=== PATIENT | female | born 1985 | race Caucasian/White ===

== ENCOUNTER 2017-01-01 01:34 | Inpatient (IN) | payer MEDICAID, OTHER ==
[2017-01-01] VITALS (10 sets, daily range): BP systolic 123–165; BP diastolic 64–100
[~2017-01-01] VITALS: Ht 172.7 cm; Wt 56.7 kg
[~2017-01-01 01:34] MED LIST: AMITRIPTYLINE25 MG ORAL; ATIVAN1 MG ORAL; LORAZEPAM0.5 MG ORAL; ONDANSETRON ODT4 MG ORAL; ZOFRAN ODT8 MG ORAL
[2017-01-01] MEDS ORDERED: Haloperidol 5mg/ml Inj IM ONE (02:30)
[2017-01-01] MEDS ORDERED: Morphine Sulfate 4mg/ml Inj IVP ONE ×2 (02:45→08:00)
[2017-01-01 03:33] LABS: APPEARANCE,URINE CLEAR; KETONES,URINE 4+ (NEGATIVE); LEUKOCYTE ESTERASE ,URINE NEGATIVE (NEGATIVE); MEAN CORPUSCULAR HEMOGLOBIN 31.3 PG (27.0-31.0); MEAN CORPUSCULAR HGB CONC 35.4 G/DL (32.0-36.0); MEAN CORPUSCULAR VOLUME 88 FL (80-99); MEAN PLATELET VOLUME 7.1 FL (6.5-10.1); NITRITE,URINE NEGATIVE (NEGATIVE); PH,URINE 6 (4.5-8.0); PLATELET COUNT 206 K/UL (150-450); PROTEIN,URINE 2+ (NEGATIVE); RED BLOOD COUNT 4.59 M/UL (4.20-5.40); RED CELL DISTRIBUTION WIDTH 11.2 % (11.6-14.8); UROBILINOGEN,URINE NORMAL MG/DL (0.0-1.0); WHITE BLOOD COUNT 16.5 K/UL (4.8-10.8)
[2017-01-01 03:43] LABS: BACTERIA,URINE FEW /HPF; SQUAMOUS EPITHELIAL CELL,UR FEW /LPF (NONE/OCC); WBC,URINE 0-2 /HPF (0 - 2)
[2017-01-01 03:46] LABS: ALANINE AMINOTRANSFERASE 12 U/L (3-33); ALBUMIN/GLOBULIN RATIO 1.5 (1.0-2.7); ANION GAP 27 (5-15); ASPARTATE AMINO TRANSFERASE 20 U/L (5-40); CARBON DIOXIDE 14 mEQ/L (20-30); CHLORIDE 99 mEQ/L (98-107); CREATININE 0.8 mg/dL (0.5-0.9); GLOMERULAR FILTRATION RATE > 60 mL/min (>60); HEMOLYSIS 60; LIPASE 15 U/L (< 60); POTASSIUM 3.8 mEQ/L (3.4-4.9); SODIUM 140 mEQ/L (135-145); TOTAL PROTEIN 7.5 g/dL (6.6-8.7)
[2017-01-01] MEDS ORDERED: Famotidine 20 MG/ 2ML VIAL IVP ONE (04:00)
[2017-01-01] MEDS ORDERED: D5 1/2NS w/KCl 20mEq 1,000 ML IV SCH (04:00)
[2017-01-01 05:03] LABS: TROPONIN I < 0.30 ng/mL (<=0.30)
--- NOTE | 2017-01-01 07:58 | Emergency Room Report ---
History of Present Illness General Chief Complaint: Abdominal Pain Source: Patient, EMS Present Illness HPI Patient is a 31-year-old female presented after increased generalized abdominal pain. The patient had prior history of cyclic vomiting syndrome patient had increased pain. She reported having multiple episodes of nausea and vomiting. She denied any diarrhea. The patient had previously been hospitalized for similar type episodes. She had been feeling dizzy lightheaded. She had not been able to tolerate oral food or fluids. Her primary care physician is Dr. Flores Allergies: Coded Allergies: SULFA (SULFONAMIDE ANTIBIOTICS) (Verified Allergy, Unknown, 02/23/11) Patient History Past Medical History: see triage record Last Menstrual Period: 3 weeks ago Reviewed Nursing Documentation: PMH: Agreed, PSxH: Agreed Nursing Documentation-PMH Hx Cardiac Problems: No Hx Hypertension: No Hx Pacemaker: No Hx Asthma: Yes Hx COPD: No Hx Diabetes: No Hx Cancer: No Hx Gastrointestinal Problems: Yes - CYCLIC VOMITING Hx Dialysis: No Hx Neurological Problems: No Hx Cerebrovascular Accident: No Hx Transient Ischemic Attacks: No Hx Dementia: No Hx Alzheimer's Disease: No Hx Parkinson's Disease: No Hx Meningitis: No Hx Encephalitis: No Hx Seizures: No Hx Epilepsy: No Hx Multiple Sclerosis: No Hx Cerebral Palsy: No Hx Amyotrophic Lat Sclerosis: No Hx Guillian-[place] Syndrome: No Hx Paralysis: No Hx Peripheral Neuropathy: No Hx Spinal Cord Injury: No Hx Head Trauma: No Hx Traumatic Brain Injury: No Hx Memory Loss: No Hx Concentration Difficulty: No Hx Speech Problem: No Hx Tremors: No Hx Vertigo: No Hx Dizziness: No Hx Syncope: No Hx Headaches: No Hx Aphasia: No Hx Dysphasia: No Hx Numbness: No Hx Weakness: No Hx Fatigue: No Hx Neurologic Surgery: No Hx Brain Shunt: No Review of Systems All Other Systems: negative except mentioned in HPI Physical Exam Vital Signs Date Time Temp Pulse Resp B/P Pulse Ox O2 Delivery O2 Flow Rate FiO2 01/01/17 01:38 97.5 75 18 149/86 100 Room Air Sp02 EP Interpretation: reviewed, normal General Appearance: normal inspection, alert, GCS 15, moderate distress Head: atraumatic ENT: normal ENT inspection, hearing grossly normal, normal voice Neck: normal inspection, full range of motion, supple, no bony tend Respiratory: normal inspection, lungs clear, normal breath sounds, no respiratory distress, no retraction, no wheezing Cardiovascular #1: regular rate, rhythm, no edema Gastrointestinal: non tender, soft, no guarding, no hernia Genitourinary: no CVA tenderness Musculoskeletal: normal inspection, back normal, normal range of motion Neurologic: normal inspection, alert, oriented x3, responsive, sap bobj developer III-XII nml as tested, speech normal Psychiatric: normal inspection, judgement/insight normal, mood/affect normal Skin: no rash, pallor Medical Decision Making Diagnostic Impression: Primary Impression: Cyclic vomiting syndrome Additional Impressions: Dehydration Leukocytosis ER Course Patient presented for abdominal pain. Differential diagnoses included ischemic bowel, appendicitis, perforated viscus, abdominal aortic aneurysm, inferior myocardial infarction, viral gastroenteritis Because of complexity of patient's case laboratory testing and imaging studies were ordered. The patient started on IV fluids as well as IV antiemetics. The patient was noted to have persistent abdominal pain and vomiting. The patient is not able to tolerate oral fluids. The patient began vomiting immediately after by mouth challenge. Laboratory testing was notable for elevated white blood count as well as, some ketosis consistent with dehydration. A urinalysis showed no evidence of infection. The patient started on dextrose containing fluids. Patient was discussed with Dr. Yohannes Cotto who is covering for Dr. Deal. Laboratory Tests Test 01/01/17 03:20 White Blood Count 16.5 K/UL (4.8-10.8) H Red Blood Count 4.59 M/UL (4.20-5.40) Hemoglobin 14.4 G/DL (12.0-16.0) Hematocrit 40.6 % (37.0-47.0) Mean Corpuscular Volume 88 FL (80-99) Mean Corpuscular Hemoglobin 31.3 PG (27.0-31.0) H Mean Corpuscular Hemoglobin Concent 35.4 G/DL (32.0-36.0) Red Cell Distribution Width 11.2 % (11.6-14.8) L Platelet Count 206 K/UL (150-450) Mean Platelet Volume 7.1 FL (6.5-10.1) Neutrophils (%) (Auto) % (45.0-75.0) Lymphocytes (%) (Auto) % (20.0-45.0) Monocytes (%) (Auto) % (1.0-10.0) Eosinophils (%) (Auto) % (0.0-3.0) Basophils (%) (Auto) % (0.0-2.0) Urine Color Pale yellow Urine Appearance Clear Urine pH 6 (4.5-8.0) Urine Specific [place] 1.025 (1.005-1.035) Urine Protein 2+ (NEGATIVE) H Urine Glucose (UA) 3+ (NEGATIVE) H Urine Ketones 4+ (NEGATIVE) H Urine Occult Blood 2+ (NEGATIVE) H Urine Nitrite Negative (NEGATIVE) Urine Bilirubin Negative (NEGATIVE) Urine Urobilinogen Normal MG/DL (0.0-1.0) Urine Leukocyte Esterase Negative (NEGATIVE) Urine RBC 5-10 /HPF (0 - 2) H Urine WBC 0-2 /HPF (0 - 2) Urine Squamous Epithelial Cells Few /LPF (NONE/OCC) Urine Bacteria Few /HPF (NONE) Urine HCG, Qualitative Negative Sodium Level 140 mEQ/L (135-145) Potassium Level 3.8 mEQ/L (3.4-4.9) Chloride Level 99 mEQ/L (98-107) Carbon Dioxide Level 14 mEQ/L (20-30) L Anion Gap 27 (5-15) H Blood Urea Nitrogen 14 mg/dL (7-23) Creatinine 0.8 mg/dL (0.5-0.9) Estimate Glomerular Filtration Rate > 60 mL/min (>60) Glucose Level 196 mg/dL (74-106) H Calcium Level 10.0 mg/dL (8.6-10.2) Total Bilirubin 0.3 mg/dL (0.0-1.2) Aspartate Amino Transferase (AST) 20 U/L (5-40) Alanine Aminotransferase (ALT) 12 U/L (3-33) Alkaline Phosphatase 44 U/L (35-104) Troponin I < 0.30 ng/mL (<=0.30) Total Protein 7.5 g/dL (6.6-8.7) Albumin 4.6 g/dL (3.5-5.2) Globulin 2.9 g/dL Albumin/Globulin Ratio 1.5 (1.0-2.7) Lipase 15 U/L (< 60) Urine Opiates Screen Negative (NEGATIVE) Urine Barbiturates Screen Negative (NEGATIVE) Phencyclidine (PCP) Screen Negative (NEGATIVE) Urine Amphetamines Screen Negative (NEGATIVE) Urine Benzodiazepines Screen Negative (NEGATIVE) Urine Cocaine Screen Negative (NEGATIVE) Urine Marijuana (THC) Screen Positive (NEGATIVE) H Last Vital Signs Date Time Temp Pulse Resp B/P Pulse Ox O2 Delivery O2 Flow Rate FiO2 01/01/17 07:08 98.0 60 20 155/82 98 Room Air Status: unchanged Disposition: ADMITTED INPATIENT Condition: Serious Referrals: DEENA MCDOWELL (PCP) Sj Hill Jan 01, 2017 07:58
--- NOTE | 2017-01-01 10:13 | History & Physical ---
History and Physical History & Physicial History of Present Illness Date patient seen: 01/01/17 Time patient seen: 09:20 Reason for Hospitalization: n, Vomiting HPI 31y/o female w/ cyclical vomiting syndrome who presents w/ nausea and vomiting. She has had dozens of ED visits here and at [facility]. She is complaining of abdominal pain with intractable vomiting. No diarrhea. Pain is 10 out of 10 cramping in nature. Unable to take her Ativan and her Zofran. Similar symptom in the past. Unable to keep anything down for the last 2 days. At beside, history corroborated. Pt w/ improved symptoms. Requesting ice chips. Denies f/c, chest pain, SOB, dysuria. Allergies: Coded Allergies: SULFA (SULFONAMIDE ANTIBIOTICS) (Verified Allergy, Unknown, 02/23/11) Scheduled PRN Lorazepam* (Lorazepam*), 0.5 MG ORAL DAILY PRN for For Anxiety, (Reported) Ondansetron Odt* (Zofran Odt*), 8 MG ORAL Q6H PRN for Nausea & Vomiting, ( Reported) Discontinued Medications Amitriptyline HCl (Elavil*), 25 MG ORAL BEDTIME, (Reported) Discontinued Reason: Pt stopped taking med History Provided By: Medical Record Healthcare decision maker Resuscitation status Full Code Advanced Directive on File Family History: Patient reports no known family medical history. ROS Review of Systems Constitutional: Reports: no symptoms ENT: Reports: no symptoms Respiratory: Reports: no symptoms Cardiovascular: Reports: no symptoms Gastrointestinal: Reports: abdominal pain, nausea, vomiting Genitourinary: Reports: no symptoms Musculoskeletal: Reports: no symptoms Skin: Reports: no symptoms Psychiatric: Reports: no symptoms Neurological: Reports: no symptoms Endocrine: Reports: no symptoms Hematologic/Lymphatic: Reports: no symptoms All Other Systems: negative except mentioned in HPI Physical Exam Physical Exam Physical Exam Narrative General appearance: Alert, conversant, and in no distress Head: NC/AT Eyes: sclera clear ENT: mucous membranes moist Chest: clear to auscultation b/l, no wheezes, rales or rhonchi, symmetric air entry Heart: RRR, normal S1/S2, no murmurs, rubs, clicks or gallops Abdomen: Normoactive, soft, +mild TTP diffusely, no acute abd signs, nondistended, no masses or organomegaly Extremities: No LE edema, no cyanosis. Pedal pulses 2+. Medications Current Medications Medications (Trade) Dose Ordered Sig/Shanta Route PRN Reason Start Time Stop Time Status Last Admin Dose Admin Acetaminophen (Tylenol) 650 mg Q4H PRN ORAL Mild Pain (Pain Scale 1-3) 08/18/16 09:15 09/17/16 09:14 Bisacodyl (Dulcolax) 10 mg HSPRN PRN RECTAL Constipation 08/18/16 09:15 09/17/16 09:14 Dextrose (Dextrose 50%) STAT PRN IV Hypoglycemia 08/18/16 09:15 09/17/16 09:14 Dextrose/ Electrolytes (D5 0.45%NS W/ KCl 20mEq) 1,000 ml @ 100 mls/hr Q10H IV 08/18/16 10:00 09/17/16 09:59 08/18/16 11:05 Docusate Sodium (Colace) 100 mg EVERY 12 HOURS ORAL 08/18/16 10:00 09/17/16 09:59 08/18/16 10:44 Heparin Sodium (Porcine) (Heparin 5000 units/ml) 5,000 units EVERY 12 HOURS SUBQ 08/18/16 10:00 09/17/16 09:59 08/18/16 10:44 Lorazepam (Ativan) 0.5 mg Q8H PRN ORAL For Anxiety 08/18/16 09:45 08/25/16 09:44 Magnesium Hydroxide (Mom) 30 ml HSPRN PRN ORAL Constipation 08/18/16 09:15 09/17/16 09:14 Metoclopramide HCl (Reglan) 10 mg Q6H PRN IVP Nausea & Vomiting 08/18/16 09:15 09/17/16 09:14 Morphine Sulfate (Morphine Sulfate) 1 mg Q4H PRN IVP Mild Pain (Pain Scale 1-3) 08/18/16 09:15 08/25/16 09:14 Morphine Sulfate (Morphine Sulfate) 2 mg Q4H PRN IVP Moderate Pain (Pain Scale 4-6) 08/18/16 09:15 08/25/16 09:14 08/18/16 14:49 Morphine Sulfate (Morphine Sulfate) 4 mg Q4H PRN IVP Severe Pain (Pain Scale 7-10) 08/18/16 09:15 08/25/16 09:14 Ondansetron HCl (Zofran) 4 mg Q6H PRN IVP Nausea & Vomiting 08/18/16 09:15 09/17/16 09:14 08/18/16 13:09 Pantoprazole (Protonix) 40 mg DAILY IV 08/18/16 10:00 09/17/16 09:59 08/18/16 10:44 Polyethylene Glycol (Miralax) 17 gm HSPRN PRN ORAL Constipation 08/18/16 09:15 09/17/16 09:14 Zolpidem Tartrate (Ambien) 5 mg HSPRN PRN ORAL Insomnia 08/18/16 09:15 09/17/16 09:14 Assessment/Plan Assessment/Plan Problem List: (1) Cyclic vomiting syndrome (2) Intractable nausea and vomiting (3) Elevated lipase Status: stable Assessment/Plan #Cyclical vomiting syndrome: Pt with recurrent episodes, now improving. -IVF - ice chips, ADAT -Zofran PRN, Compazine and Phenergan and Reglan prn -Ativan PRN #Asthma. Stable, no acute concerns -Continue home Albuterol PRN #FEN/PPx: ice chips-->CLD advance as tolerate HSQ FULL CODE I spent 70min on this encounter w/ >50% on care/coordination. D/w pt, RN, ED physician regarding appropriate management and obs status and dispo Hernando Melendez M.D. Jan 01, 2017 10:12
[2017-01-01] MEDS: D5NS 1,000 ML IV SCH ×2 (12:27→21:40)
--- NOTE | 2017-01-01 13:27 | GI Initial Consult Note ---
History of Present Illness General Date patient seen: Jan 01, 2017 Time patient seen: 11:00 Reason for Hospitalization: Abdominal Pain Referring physician: RADHA ZUÑIGA Reason for Consultation: CYCLIC VOMITTING Present Illness HPI Patient is a 31-year-old female presented after increased generalized abdominal pain. The patient had prior history of cyclic vomiting syndrome patient had increased pain. She reported having multiple episodes of nausea and vomiting. She denied any diarrhea. The patient had previously been hospitalized for similar type episodes. She had been feeling dizzy lightheaded. She had not been able to tolerate oral food or fluids. Her primary care physician is Dr. Flores GI CONSULT: HPI as noted above. GI consulted for cyclic vomiting 2/2 MJ use. Pt seen on floor, awake A&Ox4 NAD with active s/sx of N/V. Denies N/V and diarrhea at this time. According to the patient, she had ingested large amounts of ETOH prior to her episodes of vomiting. She denied any use of MJ at the time or prior to her episodes. She presents today leukocytosis and positive utox for MJ. LFTs and lipase are unremarkable. Home Meds Reported Medications Ondansetron Odt* (ZOFRAN ODT*) 8 Mg Tab.rapdis, 8 MG ORAL Q6H Y for Nausea & Vomiting, #30 TAB 08/18/16 Lorazepam* (LORAZEPAM*) 0.5 Mg Tablet, 0.5 MG ORAL DAILY Y for For Anxiety, TAB 01/30/16 Allergies: Coded Allergies: SULFA (SULFONAMIDE ANTIBIOTICS) (Verified Allergy, Unknown, 02/23/11) Patient History History Provided By: Patient, Medical Record PMH Narrative Hx Cardiac Problems: No Hx Hypertension: No Hx Pacemaker: No Hx Asthma: Yes Hx COPD: No Hx Diabetes: No Hx Cancer: No Hx Gastrointestinal Problems: Yes - CYCLIC VOMITING Hx Dialysis: No Hx Neurological Problems: No Hx Cerebrovascular Accident: No Hx Transient Ischemic Attacks: No Hx Dementia: No Hx Alzheimer's Disease: No Hx Parkinson's Disease: No Hx Meningitis: No Hx Encephalitis: No Hx Seizures: No Hx Epilepsy: No Hx Multiple Sclerosis: No Hx Cerebral Palsy: No Hx Amyotrophic Lat Sclerosis: No Hx Guillian-[place] Syndrome: No Hx Paralysis: No Hx Peripheral Neuropathy: No Hx Spinal Cord Injury: No Hx Head Trauma: No Hx Traumatic Brain Injury: No Hx Memory Loss: No Hx Concentration Difficulty: No Hx Speech Problem: No Hx Tremors: No Hx Vertigo: No Hx Dizziness: No Hx Syncope: No Hx Headaches: No Hx Aphasia: No Hx Dysphasia: No Hx Numbness: No Hx Weakness: No Hx Fatigue: No Hx Neurologic Surgery: No Hx Brain Shunt: No Social History: Reports: alcohol use, drug use Review of Systems All Other Systems: negative except mentioned in HPI Physical Exam Vital Signs Date Time Temp Pulse Resp B/P Pulse Ox O2 Delivery O2 Flow Rate FiO2 01/01/17 01:38 97.5 75 18 149/86 100 Room Air Sp02 EP Interpretation: reviewed Labs Laboratory Tests Test 01/01/17 03:20 White Blood Count 16.5 K/UL (4.8-10.8) H Red Blood Count 4.59 M/UL (4.20-5.40) Hemoglobin 14.4 G/DL (12.0-16.0) Hematocrit 40.6 % (37.0-47.0) Mean Corpuscular Volume 88 FL (80-99) Mean Corpuscular Hemoglobin 31.3 PG (27.0-31.0) H Mean Corpuscular Hemoglobin Concent 35.4 G/DL (32.0-36.0) Red Cell Distribution Width 11.2 % (11.6-14.8) L Platelet Count 206 K/UL (150-450) Mean Platelet Volume 7.1 FL (6.5-10.1) Neutrophils (%) (Auto) % (45.0-75.0) Lymphocytes (%) (Auto) % (20.0-45.0) Monocytes (%) (Auto) % (1.0-10.0) Eosinophils (%) (Auto) % (0.0-3.0) Basophils (%) (Auto) % (0.0-2.0) Urine Color Pale yellow Urine Appearance Clear Urine pH 6 (4.5-8.0) Urine Specific [place] 1.025 (1.005-1.035) Urine Protein 2+ (NEGATIVE) H Urine Glucose (UA) 3+ (NEGATIVE) H Urine Ketones 4+ (NEGATIVE) H Urine Occult Blood 2+ (NEGATIVE) H Urine Nitrite Negative (NEGATIVE) Urine Bilirubin Negative (NEGATIVE) Urine Urobilinogen Normal MG/DL (0.0-1.0) Urine Leukocyte Esterase Negative (NEGATIVE) Urine RBC 5-10 /HPF (0 - 2) H Urine WBC 0-2 /HPF (0 - 2) Urine Squamous Epithelial Cells Few /LPF (NONE/OCC) Urine Bacteria Few /HPF (NONE) Urine HCG, Qualitative Negative Sodium Level 140 mEQ/L (135-145) Potassium Level 3.8 mEQ/L (3.4-4.9) Chloride Level 99 mEQ/L (98-107) Carbon Dioxide Level 14 mEQ/L (20-30) L Anion Gap 27 (5-15) H Blood Urea Nitrogen 14 mg/dL (7-23) Creatinine 0.8 mg/dL (0.5-0.9) Estimat Glomerular Filtration Rate > 60 mL/min (>60) Glucose Level 196 mg/dL (74-106) H Calcium Level 10.0 mg/dL (8.6-10.2) Total Bilirubin 0.3 mg/dL (0.0-1.2) Aspartate Amino Transf (AST/SGOT) 20 U/L (5-40) Alanine Aminotransferase (ALT/SGPT) 12 U/L (3-33) Alkaline Phosphatase 44 U/L (35-104) Troponin I < 0.30 ng/mL (<=0.30) Total Protein 7.5 g/dL (6.6-8.7) Albumin 4.6 g/dL (3.5-5.2) Globulin 2.9 g/dL Albumin/Globulin Ratio 1.5 (1.0-2.7) Lipase 15 U/L (< 60) Urine Opiates Screen Negative (NEGATIVE) Urine Barbiturates Screen Negative (NEGATIVE) Phencyclidine (PCP) Screen Negative (NEGATIVE) Urine Amphetamines Screen Negative (NEGATIVE) Urine Benzodiazepines Screen Negative (NEGATIVE) Urine Cocaine Screen Negative (NEGATIVE) Urine Marijuana (THC) Screen Positive (NEGATIVE) H General Appearance: well appearing, no apparent distress, alert Head: normocephalic EENT: normal ENT inspection Neck: normal inspection, full range of motion Respiratory: normal breath sounds, no respiratory distress Cardiovascular: normal rate Gastrointestinal: normal inspection, non tender, soft, normal bowel sounds Rectal: deferred Genitourinary: normal inspection Musculoskeletal: normal inspection Neurologic: normal inspection, alert, oriented x3, responsive Psychiatric: normal inspection, judgement/insight normal, memory normal Skin: normal inspection, normal color, no rash, warm/dry Lymphatic: normal inspection Current Medications Current Medications Medications (Trade) Dose Ordered Sig/Shanta Route PRN Reason Start Time Stop Time Status Last Admin Dose Admin Dextrose/Sodium Chloride (D5ns) 1,000 ml @ 125 mls/hr Q8H IV 01/01/17 12:30 01/31/17 12:29 01/01/17 12:27 Heparin Sodium (Porcine) (Heparin 5000 units/ml) 5,000 units EVERY 12 HOURS SUBQ 01/01/17 21:00 01/31/17 20:59 Metoclopramide HCl (Reglan) 10 mg Q6H PRN IVP Nausea & Vomiting 01/01/17 11:15 01/31/17 11:14 Ondansetron HCl (Zofran) 4 mg Q6H PRN IVP Nausea & Vomiting 01/01/17 11:15 01/31/17 11:14 01/01/17 12:28 Promethazine HCl (Phenergan) 25 mg Q6H PRN IM Nausea & Vomiting 01/01/17 11:15 01/31/17 11:14 GI: Plan Problems: (1) Cannabis abuse (2) Cyclic vomiting syndrome (3) Intractable nausea and vomiting (4) Leukocytosis Plan utox >> MJ positive lipase >> negative symptomatic treatment at this time CLD, adv as tolerated reglan prn zofran prn H2 fu labs Discussed with Dr. Wood. Thank you for referring this patient, we will follow. Alice Moore N.P. Jan 01, 2017 13:27
[2017-01-01] MEDS: Metoclopramide 10mg/2ml Inj IVP PRN ×2 (15:12→21:39)
[2017-01-01] MEDS: Morphine Sulfate 2mg/ml Inj IVP PRN (18:48)
[2017-01-01] MEDS: Heparin 5000 units/ml inj SUBQ SCH (21:39)
[2017-01-01] MEDS: Famotidine 20 MG/ 2ML VIAL IVP SCH (21:40)
[2017-01-02] MEDS: Morphine Sulfate 2mg/ml Inj IVP PRN ×3 (01:01→18:41)
[2017-01-02 04:00] VITALS: BP 128/76
[2017-01-02] MEDS: D5NS 1,000 ML IV SCH ×2 (04:30→12:00)
[2017-01-02] MEDS: Metoclopramide 10mg/2ml Inj IVP PRN (06:47)
[2017-01-02 07:00] LABS: BASOPHILS % (AUTO) 0.4 % (0.0-2.0); EOSINOPHILS % (AUTO) 0.1 % (0.0-3.0); MEAN CORPUSCULAR HEMOGLOBIN 31.5 PG (27.0-31.0); MEAN CORPUSCULAR HGB CONC 35.2 G/DL (32.0-36.0); MEAN CORPUSCULAR VOLUME 89 FL (80-99); MEAN PLATELET VOLUME 7.3 FL (6.5-10.1); MONOCYTES % (AUTO) 5.7 % (1.0-10.0); NEUTROPHILS % (AUTO) 68.8 % (45.0-75.0); PLATELET COUNT 186 K/UL (150-450); RED BLOOD COUNT 4.22 M/UL (4.20-5.40); RED CELL DISTRIBUTION WIDTH 11.4 % (11.6-14.8); WHITE BLOOD COUNT 15.6 K/UL (4.8-10.8)
[2017-01-02 07:14] LABS: ANION GAP 14 (5-15); CALCIUM 9.1 mg/dL (8.6-10.2); CARBON DIOXIDE 22 mEQ/L (20-30); CHLORIDE 105 mEQ/L (98-107); CREATININE 0.7 mg/dL (0.5-0.9); GLOMERULAR FILTRATION RATE > 60 mL/min (>60); HEMOLYSIS 4; POTASSIUM 3.3 mEQ/L (3.4-4.9); SODIUM 141 mEQ/L (135-145)
[2017-01-02 08:50] VITALS: BP 159/89
[2017-01-02] MEDS: Famotidine 20 MG/ 2ML VIAL IVP SCH ×2 (09:01→21:21)
[2017-01-02] MEDS: Heparin 5000 units/ml inj SUBQ SCH ×2 (09:06→21:30)
--- NOTE | 2017-01-02 11:59 | GI Progress Note ---
Assessment/Plan Problems: (1) Intractable nausea and vomiting ICD Codes: R11.2 - Nausea with vomiting, unspecified SNOMED: 527375098, 480920198 (2) Cyclic vomiting syndrome ICD Codes: G43.A0 - Cyclical vomiting, not intractable SNOMED: 72913643 (3) Cannabis abuse ICD Codes: F12.10 - Cannabis abuse, uncomplicated SNOMED: 76792428 Status: not improved Status Narrative Discussed with Dr. Wood. Assessment/Plan utox >> MJ positive lipase >> negative symptomatic treatment at this time CLD, adv as tolerated reglan ATC increased zofran 8mg prn scopolamine patch reduce pain meds H2 fu labs Subjective Gastrointestinal/Abdominal: Reports: nausea - has not subsided Objective Last 24 Hour Vital Signs Date Time Temp Pulse Resp B/P Pulse Ox O2 Delivery O2 Flow Rate FiO2 01/02/17 08:50 97.0 70 19 159/89 99 Room Air 70 01/02/17 07:42 98.0 01/02/17 04:00 98.0 69 18 128/76 98 Room Air 01/01/17 23:46 98.1 67 18 130/69 97 Room Air 01/01/17 20:00 98.2 69 18 134/75 97 Room Air 01/01/17 16:13 98.4 63 20 165/100 98 Room Air 01/01/17 11:58 97.7 64 20 153/87 98 Room Air Intake and Output 01/01/17 01/02/17 19:00 07:00 Intake Total 702.5 ml 1625 ml Balance 702.5 ml 1625 ml Intake Oral 375 ml IV Total 702.5 ml 1250 ml # Voids 2 3 # Bowel Movements 1 Laboratory Tests Test 01/02/17 05:10 White Blood Count 15.6 K/UL (4.8-10.8) H Red Blood Count 4.22 M/UL (4.20-5.40) Hemoglobin 13.3 G/DL (12.0-16.0) Hematocrit 37.7 % (37.0-47.0) Mean Corpuscular Volume 89 FL (80-99) Mean Corpuscular Hemoglobin 31.5 PG (27.0-31.0) H Mean Corpuscular Hemoglobin Concent 35.2 G/DL (32.0-36.0) Red Cell Distribution Width 11.4 % (11.6-14.8) L Platelet Count 186 K/UL (150-450) Mean Platelet Volume 7.3 FL (6.5-10.1) Neutrophils (%) (Auto) 68.8 % (45.0-75.0) Lymphocytes (%) (Auto) 25.0 % (20.0-45.0) Monocytes (%) (Auto) 5.7 % (1.0-10.0) Eosinophils (%) (Auto) 0.1 % (0.0-3.0) Basophils (%) (Auto) 0.4 % (0.0-2.0) Sodium Level 141 mEQ/L (135-145) Potassium Level 3.3 mEQ/L (3.4-4.9) L Chloride Level 105 mEQ/L (98-107) Carbon Dioxide Level 22 mEQ/L (20-30) Anion Gap 14 (5-15) Blood Urea Nitrogen 6 mg/dL (7-23) L Creatinine 0.7 mg/dL (0.5-0.9) Estimat Glomerular Filtration Rate > 60 mL/min (>60) Glucose Level 125 mg/dL (74-106) H Calcium Level 9.1 mg/dL (8.6-10.2) Height (Feet): 5 Height (Inches): 8.00 Weight (Pounds): 125 General Appearance: no apparent distress, alert Cardiovascular: normal rate, regular rhythm Respiratory/Chest: normal breath sounds Abdominal Exam: normal bowel sounds, non tender, soft Extremities: normal range of motion Alice Moore N.P. Jan 02, 2017 11:59
[2017-01-02 12:55] VITALS: BP 157/87
[2017-01-02] MEDS ORDERED: Transderm Scop 1.5mg TDERMAL ONE (13:00)
--- NOTE | 2017-01-02 15:51 | General Progress Note ---
Assessment/Plan Problem List: (1) Intractable cyclical vomiting ICD Codes: G43.A1 - Intractable cyclical vomiting SNOMED: 99034850 Status: progressing Assessment/Plan #Cyclical vomiting syndrome: Pt with recurrent episodes, now worsening. -IVF - ice chips, ADAT -Zofran PRN, Compazine and Phenergan and Reglan prn -Scopolomine patch -Ativan PRN -appreciate gi recs #Asthma. Stable, no acute concerns -Continue home Albuterol PRN #FEN/PPx: ice chips-->CLD advance as tolerate HSQ Subjective Date patient seen: Jan 02, 2017 Time patient seen: 15:51 Allergies: Coded Allergies: SULFA (SULFONAMIDE ANTIBIOTICS) (Verified Allergy, Unknown, 02/23/11) Subjective pt with worsening n/v this am Objective Last 24 Hour Vital Signs Date Time Temp Pulse Resp B/P Pulse Ox O2 Delivery O2 Flow Rate FiO2 01/02/17 12:55 98.8 59 19 157/87 99 Room Air 59 01/02/17 08:50 97.0 70 19 159/89 99 Room Air 70 01/02/17 07:42 98.0 01/02/17 04:00 98.0 69 18 128/76 98 Room Air 01/01/17 23:46 98.1 67 18 130/69 97 Room Air 01/01/17 20:00 98.2 69 18 134/75 97 Room Air 01/01/17 16:13 98.4 63 20 165/100 98 Room Air Intake and Output 01/01/17 01/02/17 19:00 07:00 Intake Total 702.5 ml 1750 ml Balance 702.5 ml 1750 ml Intake Oral 375 ml IV Total 702.5 ml 1375 ml # Voids 2 3 # Bowel Movements 1 Laboratory Tests 01/02/17 05:10: White Blood Count 15.6H, Red Blood Count 4.22, Hemoglobin 13.3, Hematocrit 37.7 , Mean Corpuscular Volume 89, Mean Corpuscular Hemoglobin 31.5H, Mean Corpuscular Hemoglobin Concent 35.2, Red Cell Distribution Width 11.4L, Platelet Count 186, Mean Platelet Volume 7.3, Neutrophils (%) (Auto) 68.8, Lymphocytes (%) (Auto) 25.0, Monocytes (%) (Auto) 5.7, Eosinophils (%) (Auto) 0.1, Basophils (%) (Auto) 0.4, Sodium Level 141, Potassium Level 3.3L, Chloride Level 105, Carbon Dioxide Level 22, Anion Gap 14, Blood Urea Nitrogen 6L, Creatinine 0.7, Estimat Glomerular Filtration Rate > 60, Glucose Level 125H, Calcium Level 9.1 Height (Feet): 5 Height (Inches): 8.00 Weight (Pounds): 125 Objective General appearance: Alert, conversant, and in no distress Head: NC/AT Eyes: sclera clear ENT: mucous membranes moist Chest: clear to auscultation b/l, no wheezes, rales or rhonchi, symmetric air entry Heart: RRR, normal S1/S2, no murmurs, rubs, clicks or gallops Abdomen: Normoactive, soft, +mild TTP diffusely, no acute abd signs, nondistended, no masses or organomegaly Extremities: No LE edema, no cyanosis. Pedal pulses 2+. Hernando Melendez M.D. Jan 02, 2017 15:51
[2017-01-02 16:00] VITALS: BP 135/76
[2017-01-02] MEDS: ONDANSETRON IVPB PRN ×2 (17:29→23:58)
[2017-01-02] MEDS: NS IVPB PRN ×2 (17:29→23:58)
[2017-01-02 20:00] VITALS: BP 124/73
[2017-01-03] VITALS: BP 156/89
[2017-01-03] MEDS: Morphine Sulfate 2mg/ml Inj IVP PRN ×3 (00:36→22:45)
[2017-01-03 04:00] VITALS: BP 127/84
[2017-01-03 06:31] LABS: BASOPHILS % (AUTO) 0.5 % (0.0-2.0); EOSINOPHILS % (AUTO) 0.1 % (0.0-3.0); LYMPHOCYTES % (AUTO) 34.6 % (20.0-45.0); MEAN CORPUSCULAR HEMOGLOBIN 30.3 PG (27.0-31.0); MEAN CORPUSCULAR HGB CONC 33.9 G/DL (32.0-36.0); MEAN CORPUSCULAR VOLUME 89 FL (80-99); MEAN PLATELET VOLUME 7.4 FL (6.5-10.1); MONOCYTES % (AUTO) 6.1 % (1.0-10.0); NEUTROPHILS % (AUTO) 58.8 % (45.0-75.0); PLATELET COUNT 171 K/UL (150-450); RED BLOOD COUNT 4.31 M/UL (4.20-5.40); RED CELL DISTRIBUTION WIDTH 11.2 % (11.6-14.8); WHITE BLOOD COUNT 9.8 K/UL (4.8-10.8)
[2017-01-03 06:56] LABS: ANION GAP 14 (5-15); CALCIUM 8.8 mg/dL (8.6-10.2); CARBON DIOXIDE 23 mEQ/L (20-30); CHLORIDE 105 mEQ/L (98-107); CREATININE 0.6 mg/dL (0.5-0.9); GLOMERULAR FILTRATION RATE > 60 mL/min (>60); HEMOLYSIS 4; POTASSIUM 3.6 mEQ/L (3.4-4.9); SODIUM 142 mEQ/L (135-145)
[2017-01-03] MEDS: ONDANSETRON IVPB PRN ×2 (08:02→16:11)
[2017-01-03] MEDS: NS IVPB PRN ×2 (08:02→16:11)
[2017-01-03] MEDS: Famotidine 20 MG/ 2ML VIAL IVP SCH ×2 (08:02→21:55)
[2017-01-03] MEDS: Heparin 5000 units/ml inj SUBQ SCH ×2 (08:06→21:57)
[2017-01-03 08:51] VITALS: BP 166/98
[2017-01-03] MEDS ORDERED: LORazepam Inj 2mg/ml 1ml IV ONE (11:00)
[2017-01-03] MEDS ORDERED: Meclizine 25mg tab ORAL PRN (11:00)
--- NOTE | 2017-01-03 11:39 | GI Progress Note ---
Assessment/Plan Problems: (1) Intractable nausea and vomiting ICD Codes: R11.2 - Nausea with vomiting, unspecified SNOMED: 801202784, 964296391 (2) Cyclic vomiting syndrome ICD Codes: G43.A0 - Cyclical vomiting, not intractable SNOMED: 23979097 (3) Cannabis abuse ICD Codes: F12.10 - Cannabis abuse, uncomplicated SNOMED: 44398134 Status: stable Status Narrative Discussed with Dr. Wood. Assessment/Plan utox >> MJ positive lipase >> negative symptomatic treatment at this time adv to regular diet trial for lunch zofran 8mg prn scopolamine patch reduce pain meds H2 fu labs Subjective Gastrointestinal/Abdominal: Reports: nausea - slight improvement Objective Last 24 Hour Vital Signs Date Time Temp Pulse Resp B/P Pulse Ox O2 Delivery O2 Flow Rate FiO2 01/03/17 08:51 99.0 69 20 166/98 99 Room Air 69 01/03/17 08:32 99.0 01/03/17 04:00 98.1 66 20 127/84 99 Room Air 01/03/17 00:00 97.3 64 20 156/89 98 Room Air 01/02/17 20:00 98.6 67 21 124/73 99 Room Air 01/02/17 16:00 98.4 61 20 135/76 97 Room Air 01/02/17 12:55 98.8 59 19 157/87 99 Room Air 59 Intake and Output 01/02/17 01/03/17 19:00 07:00 Intake Total 1175 ml 2650 ml Output Total 100 ml 450 ml Balance 1075 ml 2200 ml Intake Oral 120 ml 1000 ml IV Total 1055 ml 1650 ml Output Urine Total 250 ml Emesis 100 ml 200 ml # Voids 3 Laboratory Tests Test 01/03/17 05:10 White Blood Count 9.8 K/UL (4.8-10.8) Red Blood Count 4.31 M/UL (4.20-5.40) Hemoglobin 13.1 G/DL (12.0-16.0) Hematocrit 38.6 % (37.0-47.0) Mean Corpuscular Volume 89 FL (80-99) Mean Corpuscular Hemoglobin 30.3 PG (27.0-31.0) Mean Corpuscular Hemoglobin Concent 33.9 G/DL (32.0-36.0) Red Cell Distribution Width 11.2 % (11.6-14.8) L Platelet Count 171 K/UL (150-450) Mean Platelet Volume 7.4 FL (6.5-10.1) Neutrophils (%) (Auto) 58.8 % (45.0-75.0) Lymphocytes (%) (Auto) 34.6 % (20.0-45.0) Monocytes (%) (Auto) 6.1 % (1.0-10.0) Eosinophils (%) (Auto) 0.1 % (0.0-3.0) Basophils (%) (Auto) 0.5 % (0.0-2.0) Sodium Level 142 mEQ/L (135-145) Potassium Level 3.6 mEQ/L (3.4-4.9) Chloride Level 105 mEQ/L (98-107) Carbon Dioxide Level 23 mEQ/L (20-30) Anion Gap 14 (5-15) Blood Urea Nitrogen 6 mg/dL (7-23) L Creatinine 0.6 mg/dL (0.5-0.9) Estimat Glomerular Filtration Rate > 60 mL/min (>60) Glucose Level 111 mg/dL (74-106) H Calcium Level 8.8 mg/dL (8.6-10.2) Magnesium Level 1.9 mg/dL (1.7-2.5) Height (Feet): 5 Height (Inches): 8.00 Weight (Pounds): 125 General Appearance: no apparent distress, alert, thin Cardiovascular: normal rate Respiratory/Chest: normal breath sounds, no respiratory distress Abdominal Exam: normal bowel sounds, non tender, soft Extremities: normal range of motion Alice Moore N.P. Jan 03, 2017 11:39
[2017-01-03 12:45] VITALS: BP 132/82
--- NOTE | 2017-01-03 14:46 | General Progress Note ---
Assessment/Plan Problem List: (1) Intractable cyclical vomiting ICD Codes: G43.A1 - Intractable cyclical vomiting SNOMED: [id number] Assessment/Plan #Cyclical vomiting syndrome: Pt with recurrent episodes, persistent -IVF - ice chips, ADAT -Zofran PRN, Compazine and Phenergan and Reglan prn -Scopolomine patch -Ativan PRN -appreciate gi recs #Asthma. Stable, no acute concerns -Continue home Albuterol PRN #FEN/PPx: ice chips-->CLD advance as tolerate HSQ Subjective Date patient seen: Jan 03, 2017 Time patient seen: 14:44 Allergies: Coded Allergies: SULFA (SULFONAMIDE ANTIBIOTICS) (Verified Allergy, Unknown, 02/23/11) Subjective pt with improved but persistent n/v this am Objective Last 24 Hour Vital Signs Date Time Temp Pulse Resp B/P Pulse Ox O2 Delivery O2 Flow Rate FiO2 01/03/17 12:45 98.1 68 20 132/82 97 Room Air 68 01/03/17 08:51 99.0 69 20 166/98 99 Room Air 69 01/03/17 08:32 99.0 01/03/17 04:00 98.1 66 20 127/84 99 Room Air 01/03/17 00:00 97.3 64 20 156/89 98 Room Air 01/02/17 20:00 98.6 67 21 124/73 99 Room Air 01/02/17 16:00 98.4 61 20 135/76 97 Room Air Intake and Output 01/02/17 01/03/17 19:00 07:00 Intake Total 1175 ml 2650 ml Output Total 100 ml 450 ml Balance 1075 ml 2200 ml Intake Oral 120 ml 1000 ml IV Total 1055 ml 1650 ml Output Urine Total 250 ml Emesis 100 ml 200 ml # Voids 3 Laboratory Tests 01/03/17 05:10: White Blood Count 9.8, Red Blood Count 4.31, Hemoglobin 13.1, Hematocrit 38.6, Mean Corpuscular Volume 89, Mean Corpuscular Hemoglobin 30.3, Mean Corpuscular Hemoglobin Concent 33.9, Red Cell Distribution Width 11.2L, Platelet Count 171, Mean Platelet Volume 7.4, Neutrophils (%) (Auto) 58.8, Lymphocytes (%) (Auto) 34.6, Monocytes (%) (Auto) 6.1, Eosinophils (%) (Auto) 0.1, Basophils (%) (Auto ) 0.5, Sodium Level 142, Potassium Level 3.6, Chloride Level 105, Carbon Dioxide Level 23, Anion Gap 14, Blood Urea Nitrogen 6L, Creatinine 0.6, Estimat Glomerular Filtration Rate > 60, Glucose Level 111H, Calcium Level 8.8, Magnesium Level 1.9 Height (Feet): 5 Height (Inches): 8.00 Weight (Pounds): 125 Objective General appearance: Alert, conversant, and in no distress Head: NC/AT Eyes: sclera clear ENT: mucous membranes moist Chest: clear to auscultation b/l, no wheezes, rales or rhonchi, symmetric air entry Heart: RRR, normal S1/S2, no murmurs, rubs, clicks or gallops Abdomen: Normoactive, soft, +mild TTP diffusely, no acute abd signs, nondistended, no masses or organomegaly Extremities: No LE edema, no cyanosis. Pedal pulses 2+. Hernando Melendez M.D. Jan 03, 2017 14:46
[2017-01-03] MEDS: LORazepam Inj 2mg/ml 1ml IV PRN ×2 (15:57→22:45)
[2017-01-03 16:00] VITALS: BP 140/86
[2017-01-03 20:00] VITALS: BP 144/101
[2017-01-03] MEDS ORDERED: D5NS 1000ml IV ONE (20:17)
[2017-01-03] MEDS ORDERED: Tubing IV Secondary IV ONE (20:17)
[2017-01-04] VITALS: BP 157/82
[2017-01-04 04:00] VITALS: BP 141/79
[2017-01-04] MEDS: LORazepam Inj 2mg/ml 1ml IV PRN ×2 (04:40→09:06)
[2017-01-04] MEDS: Morphine Sulfate 2mg/ml Inj IVP PRN ×2 (04:42→12:12)
[2017-01-04 07:18] LABS: BASOPHILS % (AUTO) 0.9 % (0.0-2.0); EOSINOPHILS % (AUTO) 0.4 % (0.0-3.0); LYMPHOCYTES % (AUTO) 35.9 % (20.0-45.0); MEAN CORPUSCULAR HEMOGLOBIN 30.9 PG (27.0-31.0); MEAN CORPUSCULAR HGB CONC 34.7 G/DL (32.0-36.0); MEAN CORPUSCULAR VOLUME 89 FL (80-99); MEAN PLATELET VOLUME 6.8 FL (6.5-10.1); NEUTROPHILS % (AUTO) 56.7 % (45.0-75.0); PLATELET COUNT 200 K/UL (150-450); RED BLOOD COUNT 4.73 M/UL (4.20-5.40); RED CELL DISTRIBUTION WIDTH 11.4 % (11.6-14.8); WHITE BLOOD COUNT 9.7 K/UL (4.8-10.8)
[2017-01-04 08:06] VITALS: BP 151/103
[2017-01-04 08:13] LABS: ANION GAP 16 (5-15); CALCIUM 9.4 mg/dL (8.6-10.2); CARBON DIOXIDE 23 mEQ/L (20-30); CHLORIDE 102 mEQ/L (98-107); CREATININE 0.7 mg/dL (0.5-0.9); GLOMERULAR FILTRATION RATE > 60 mL/min (>60); HEMOLYSIS 9; POTASSIUM 3.4 mEQ/L (3.4-4.9); SODIUM 141 mEQ/L (135-145)
[2017-01-04] MEDS: NS IVPB PRN (09:06)
[2017-01-04] MEDS: Famotidine 20 MG/ 2ML VIAL IVP SCH (09:06)
[2017-01-04] MEDS: ONDANSETRON IVPB PRN (09:06)
[2017-01-04] MEDS: Heparin 5000 units/ml inj SUBQ SCH (09:10)
--- NOTE | 2017-01-04 11:09 | GI Progress Note ---
Assessment/Plan Problems: (1) Intractable nausea and vomiting ICD Codes: R11.2 - Nausea with vomiting, unspecified SNOMED: 927981467, 958451195 (2) Cyclic vomiting syndrome ICD Codes: G43.A0 - Cyclical vomiting, not intractable SNOMED: 82440846 (3) Cannabis abuse ICD Codes: F12.10 - Cannabis abuse, uncomplicated SNOMED: 89518757 Status: stable Status Narrative Discussed with Dr. Wood. Assessment/Plan utox >> MJ positive lipase >> negative okay for DC per GI standpoint symptomatic treatment at this time regular diet, tolerating zofran 8mg prn scopolamine patch reduce pain meds H2 fu labs Subjective Subjective nausea improved tolerating regular diet Objective Last 24 Hour Vital Signs Date Time Temp Pulse Resp B/P Pulse Ox O2 Delivery O2 Flow Rate FiO2 01/04/17 08:06 97.8 79 20 151/103 97 Room Air 01/04/17 04:00 97.6 64 18 141/79 96 Room Air 01/04/17 00:00 97.8 67 18 157/82 97 Room Air 01/03/17 20:00 97.9 65 19 144/101 98 Room Air 01/03/17 16:00 96.8 62 20 140/86 98 Room Air 01/03/17 12:45 98.1 68 20 132/82 97 Room Air 68 Intake and Output 01/03/17 01/04/17 19:00 07:00 Intake Total 1715 ml 2275 ml Output Total 200 ml Balance 1515 ml 2275 ml Intake Oral 240 ml 550 ml IV Total 1475 ml 1725 ml Emesis 200 ml # Voids 2 4 Laboratory Tests Test 01/04/17 06:00 White Blood Count 9.7 K/UL (4.8-10.8) Red Blood Count 4.73 M/UL (4.20-5.40) Hemoglobin 14.6 G/DL (12.0-16.0) Hematocrit 42.1 % (37.0-47.0) Mean Corpuscular Volume 89 FL (80-99) Mean Corpuscular Hemoglobin 30.9 PG (27.0-31.0) Mean Corpuscular Hemoglobin Concent 34.7 G/DL (32.0-36.0) Red Cell Distribution Width 11.4 % (11.6-14.8) L Platelet Count 200 K/UL (150-450) Mean Platelet Volume 6.8 FL (6.5-10.1) Neutrophils (%) (Auto) 56.7 % (45.0-75.0) Lymphocytes (%) (Auto) 35.9 % (20.0-45.0) Monocytes (%) (Auto) 6.0 % (1.0-10.0) Eosinophils (%) (Auto) 0.4 % (0.0-3.0) Basophils (%) (Auto) 0.9 % (0.0-2.0) Sodium Level 141 mEQ/L (135-145) Potassium Level 3.4 mEQ/L (3.4-4.9) Chloride Level 102 mEQ/L (98-107) Carbon Dioxide Level 23 mEQ/L (20-30) Anion Gap 16 (5-15) H Blood Urea Nitrogen 5 mg/dL (7-23) L Creatinine 0.7 mg/dL (0.5-0.9) Estimat Glomerular Filtration Rate > 60 mL/min (>60) Glucose Level 126 mg/dL (74-106) H Calcium Level 9.4 mg/dL (8.6-10.2) Height (Feet): 5 Height (Inches): 8.00 Weight (Pounds): 125 General Appearance: no apparent distress, alert, thin Cardiovascular: normal rate Respiratory/Chest: normal breath sounds, no accessory muscle use Abdominal Exam: normal bowel sounds, non tender, soft Extremities: normal range of motion Alice Moore N.P. Jan 04, 2017 11:09
[2017-01-04 11:29] VITALS: BP 159/100
[2017-01-04] MEDS ORDERED: LORazepam Inj 2mg/ml 1ml IV PRN (12:00)
[2017-01-04] MEDS ORDERED: ZOFRAN8 MG ORAL (12:22)
[2017-01-04] MEDS ORDERED: ATIVAN1 MG ORAL (12:24)
--- NOTE | 2017-01-05 10:11 | Discharge Summary ---
Discharge Summary Hospital Course Date of Admission Jan 01, 2017 at 04:45 Date of Discharge Jan 04, 2017 at 14:55 Admitting Diagnosis intractable vomiting cyclic syndrome ARELY Morgan is a 31 year old female who was admitted on Jan 01, 2017 at 04: 45 for Intractable Vomiting Cyclic Syndrome Consultations GI Hospital Course #Cyclical vomiting syndrome: Pt with recurrent episodes, persistent -IVF - ice chips, ADAT -Zofran PRN, Compazine and Phenergan and Reglan prn -Ativan PRN Discharge Medications Continued Medications: Lorazepam* (Ativan*) 1 Mg Tablet 1 MG ORAL Q4HR PRN for Nausea & Vomiting, TAB Ondansetron Hcl* (Zofran*) 8 Mg Tablet 8 MG ORAL Q4HR PRN for Nausea & Vomiting, #4 TAB 0 Refills Discontinued Medications: Lorazepam* (Lorazepam*) 0.5 Mg Tablet 0.5 MG ORAL DAILY PRN for For Anxiety, TAB Ondansetron Odt* (Zofran Odt*) 8 Mg Tab.rapdis 8 MG ORAL Q6H PRN for Nausea & Vomiting, #30 TAB Discharge Condition Upon Discharge: stable Discharge Disposition Patient was discharged to home Discharge Diagnoses: (1) Intractable cyclical vomiting Hernando Melendez M.D. Jan 05, 2017 10:11
== END 2017-01-04 14:55 | disposition home or self-care (01) | DRG 54 ==
LOC: EDUNIT# 01:34 → EDBD 01:34 → EMR 02:29 → 4W 04:45 → EDBEDREQ 06:57
DX: G43.A0 Cyclical vomiting, in migraine, not intractable (principal); E86.0 Dehydration; F12.10 Cannabis abuse, uncomplicated; J45.909 Unspecified asthma, uncomplicated; Z88.2 Allergy status to sulfonamides
CPT/HCPCS: 36415; 80048; 80053; 80300; 81003; 81025; 83690; 83735; 84484; 85025; J2405; J2765; J8499

== ENCOUNTER 2017-01-05 14:45 | Emergency (ER) | payer MEDICAID, MEDICARE, OTHER ==
[~2017-01-05] VITALS: Ht 170.2 cm; Wt 52.2 kg
[~2017-01-05 14:45] MED LIST changes: +ZOFRAN8 MG ORAL
--- NOTE | 2017-01-05 15:14 | Emergency Room Report ---
History of Present Illness General Chief Complaint: Nausea Source: Patient, Medical Record Present Illness HPI Patient is a 31-year-old female with the cyclic vomiting syndrome who presented after having increased vomiting for the past one day. Patient had just been hospitalized for increased episodes of vomiting. She was discharged yesterday. Patient was noted to have multiple episodes of vomiting today. Patient reports having some epigastric burning sensation. She reports having an taken her Zofran without relief. Patient had not been having any fever. She reports having some lower abdominal cramping. Allergies: Coded Allergies: SULFA (SULFONAMIDE ANTIBIOTICS) (Verified Allergy, Unknown, 02/23/11) Patient History Past Medical History: see triage record Last Menstrual Period: on period Reviewed Nursing Documentation: PMH: Agreed, PSxH: Agreed Nursing Documentation-PMH Past Medical History: No History, Except For Hx Cardiac Problems: No Hx Hypertension: No Hx Pacemaker: No Hx Asthma: Yes Hx COPD: No Hx Diabetes: No Hx Cancer: No Hx Gastrointestinal Problems: Yes - CYCLIC VOMITING Hx Dialysis: No Hx Neurological Problems: No Hx Cerebrovascular Accident: No Hx Transient Ischemic Attacks: No Hx Dementia: No Hx Alzheimer's Disease: No Hx Parkinson's Disease: No Hx Meningitis: No Hx Encephalitis: No Hx Seizures: No Hx Epilepsy: No Hx Multiple Sclerosis: No Hx Cerebral Palsy: No Hx Amyotrophic Lat Sclerosis: No Hx Guillian-[place] Syndrome: No Hx Paralysis: No Hx Peripheral Neuropathy: No Hx Spinal Cord Injury: No Hx Head Trauma: No Hx Traumatic Brain Injury: No Hx Memory Loss: No Hx Concentration Difficulty: No Hx Speech Problem: No Hx Tremors: No Hx Vertigo: No Hx Dizziness: No Hx Syncope: No Hx Headaches: No Hx Aphasia: No Hx Dysphasia: No Hx Numbness: No Hx Weakness: No Hx Fatigue: No Hx Neurologic Surgery: No Hx Brain Shunt: No Review of Systems All Other Systems: negative except mentioned in HPI Physical Exam Vital Signs Date Time Temp Pulse Resp B/P Pulse Ox O2 Delivery O2 Flow Rate FiO2 01/05/17 14:48 98.8 101 20 148/102 99 Room Air Sp02 EP Interpretation: reviewed, normal General Appearance: normal inspection, well appearing, no apparent distress, alert, GCS 15, thin Head: atraumatic ENT: normal ENT inspection, hearing grossly normal, normal voice Neck: normal inspection, full range of motion, supple, no bony tend Respiratory: normal inspection, lungs clear, normal breath sounds, no respiratory distress, no retraction, no wheezing Cardiovascular #1: regular rate, rhythm, no edema Gastrointestinal: normal inspection, normal bowel sounds, non tender, soft, no guarding, no hernia Genitourinary: no CVA tenderness Musculoskeletal: normal inspection, back normal, normal range of motion Neurologic: normal inspection, alert, oriented x3, responsive, milk driver III-XII nml as tested, speech normal Psychiatric: normal inspection, judgement/insight normal, mood/affect normal Skin: normal inspection, normal color, no rash Medical Decision Making Diagnostic Impression: Primary Impression: Cyclic vomiting syndrome Additional Impressions: Dehydration Hypercalcemia ER Course Patient presented for abdominal pain. Differential diagnoses included ischemic bowel, appendicitis, perforated viscus, abdominal aortic aneurysm, inferior myocardial infarction, viral gastroenteritis Because of complexity of patient's case laboratory testing and imaging studies were ordered.The patient was given IV Compazine and subsequently developed some hives to her left upper extremity. The patient was given IV Benadryl and steroids. Patient started on IV fluids. The patient was given Zofran and Ativan. Laboratory Tests Test 01/05/17 15:13 White Blood Count 11.5 K/UL (4.8-10.8) H Red Blood Count 5.56 M/UL (4.20-5.40) H Hemoglobin 16.5 G/DL (12.0-16.0) H Hematocrit 48.9 % (37.0-47.0) H Mean Corpuscular Volume 88 FL (80-99) Mean Corpuscular Hemoglobin 29.7 PG (27.0-31.0) Mean Corpuscular Hemoglobin Concent 33.8 G/DL (32.0-36.0) Red Cell Distribution Width 11.1 % (11.6-14.8) L Platelet Count 268 K/UL (150-450) Mean Platelet Volume 7.0 FL (6.5-10.1) Neutrophils (%) (Auto) 69.5 % (45.0-75.0) Lymphocytes (%) (Auto) 23.9 % (20.0-45.0) Monocytes (%) (Auto) 5.7 % (1.0-10.0) Eosinophils (%) (Auto) 0.1 % (0.0-3.0) Basophils (%) (Auto) 0.9 % (0.0-2.0) Urine Color Yellow Urine Appearance Slightly cloudy Urine pH 6 (4.5-8.0) Urine Specific [place] 1.015 (1.005-1.035) Urine Protein 1+ (NEGATIVE) H Urine Glucose (UA) Negative (NEGATIVE) Urine Ketones 2+ (NEGATIVE) H Urine Occult Blood 4+ (NEGATIVE) H Urine Nitrite Negative (NEGATIVE) Urine Bilirubin Negative (NEGATIVE) Urine Urobilinogen Normal MG/DL (0.0-1.0) Urine Leukocyte Esterase Negative (NEGATIVE) Urine RBC 0-2 /HPF (0 - 2) Urine WBC 2-4 /HPF (0 - 2) Urine Squamous Epithelial Cells Few /LPF (NONE/OCC) Urine Bacteria Few /HPF (NONE) Urine HCG, Qualitative Negative Sodium Level 141 mEQ/L (135-145) Potassium Level 3.9 mEQ/L (3.4-4.9) Chloride Level 96 mEQ/L (98-107) L Carbon Dioxide Level 21 mEQ/L (20-30) Anion Gap 24 (5-15) H Blood Urea Nitrogen 16 mg/dL (7-23) Creatinine 1.0 mg/dL (0.5-0.9) H Estimate Glomerular Filtration Rate > 60 mL/min (>60) Glucose Level 119 mg/dL (74-106) H Calcium Level 10.4 mg/dL (8.6-10.2) H Total Bilirubin 0.4 mg/dL (0.0-1.2) Aspartate Amino Transferase (AST) 49 U/L (5-40) H Alanine Aminotransferase (ALT) 33 U/L (3-33) Alkaline Phosphatase 50 U/L (35-104) Total Protein 7.8 g/dL (6.6-8.7) Albumin 5.0 g/dL (3.5-5.2) Globulin 2.8 g/dL Albumin/Globulin Ratio 1.7 (1.0-2.7) Last Vital Signs Date Time Temp Pulse Resp B/P Pulse Ox O2 Delivery O2 Flow Rate FiO2 01/05/17 14:48 98.8 101 20 148/102 99 Room Air Status: unchanged Disposition: PLACE IN OBSERVATION Condition: Sj Webster Jan 05, 2017 15:14
[2017-01-05] MEDS ORDERED: DiphenhydrAMINE 50mg/ml Inj IVP ONE (15:15)
[2017-01-05 15:28] LABS: BASOPHILS % (AUTO) 0.9 % (0.0-2.0); EOSINOPHILS % (AUTO) 0.1 % (0.0-3.0); LYMPHOCYTES % (AUTO) 23.9 % (20.0-45.0); MEAN CORPUSCULAR HEMOGLOBIN 29.7 PG (27.0-31.0); MEAN CORPUSCULAR HGB CONC 33.8 G/DL (32.0-36.0); MEAN CORPUSCULAR VOLUME 88 FL (80-99); MONOCYTES % (AUTO) 5.7 % (1.0-10.0); NEUTROPHILS % (AUTO) 69.5 % (45.0-75.0); PLATELET COUNT 268 K/UL (150-450); RED BLOOD COUNT 5.56 M/UL (4.20-5.40); RED CELL DISTRIBUTION WIDTH 11.1 % (11.6-14.8); WHITE BLOOD COUNT 11.5 K/UL (4.8-10.8)
[2017-01-05] MEDS ORDERED: Solu-MEDROL 125mg Inj IVP ONE (15:30)
[2017-01-05 15:34] LABS: APPEARANCE,URINE SLIGHTLY CLOUDY; KETONES,URINE 2+ (NEGATIVE); NITRITE,URINE NEGATIVE (NEGATIVE); PH,URINE 6 (4.5-8.0); PROTEIN,URINE 1+ (NEGATIVE); UROBILINOGEN,URINE NORMAL MG/DL (0.0-1.0)
[2017-01-05 15:35] LABS: LEUKOCYTE ESTERASE ,URINE NEGATIVE (NEGATIVE)
[2017-01-05 15:41] LABS: BACTERIA,URINE FEW /HPF; RBC,URINE 0-2 /HPF (0 - 2); SQUAMOUS EPITHELIAL CELL,UR FEW /LPF (NONE/OCC)
[2017-01-05] MEDS ORDERED: LORazepam Inj 2mg/ml 1ml IV ONE (15:45)
[2017-01-05 15:57] VITALS: BP 170/100
[2017-01-05 16:03] LABS: ALANINE AMINOTRANSFERASE 33 U/L (3-33); ALBUMIN/GLOBULIN RATIO 1.7 (1.0-2.7); ANION GAP 24 (5-15); ASPARTATE AMINO TRANSFERASE 49 U/L (5-40); CALCIUM 10.4 mg/dL (8.6-10.2); CARBON DIOXIDE 21 mEQ/L (20-30); CHLORIDE 96 mEQ/L (98-107); GLOMERULAR FILTRATION RATE > 60 mL/min (>60); HEMOLYSIS 96; POTASSIUM 3.9 mEQ/L (3.4-4.9); SODIUM 141 mEQ/L (135-145); TOTAL PROTEIN 7.8 g/dL (6.6-8.7)
[2017-01-05 16:58] VITALS: BP 132/80
[2017-01-05] MEDS ORDERED: D5NS 1,000 ML IV SCH (17:15)
[2017-01-05 17:31] VITALS: BP 101/69
[2017-01-05] MEDS ORDERED: Famotidine 20 MG/ 2ML VIAL IVP ONE (19:30)
[2017-01-05 19:43] VITALS: BP 158/93
[2017-01-05] MEDS ORDERED: Metoclopramide 10mg/2ml Inj IVP PRN (20:15)
[2017-01-05] MEDS ORDERED: Acetaminophen 650 MG SUPP RECTAL PRN ×2 (20:15)
[2017-01-05] MEDS ORDERED: Miralax 17gm pkt ORAL PRN (20:15)
[2017-01-05] MEDS ORDERED: Morphine Sulfate 2mg/ml Inj IVP PRN (20:15)
[2017-01-05] MEDS ORDERED: Mylanta II UD 30ml ORAL PRN (20:15)
[2017-01-05] MEDS ORDERED: Zolpidem 5mg tab ORAL PRN (20:15)
[2017-01-05] MEDS ORDERED: Morphine Sulfate 4mg/ml Inj IVP PRN (20:15)
[2017-01-05] MEDS ORDERED: Milk of Magnesia 30ml Ud ORAL PRN (20:15)
[2017-01-05] MEDS ORDERED: LORazepam Inj 2mg/ml 1ml IV PRN (20:15)
[2017-01-05] MEDS: D5 1/2NS 1,000 ML IV SCH (23:03)
[2017-01-05 23:32] VITALS: BP 113/90
[2017-01-06] MEDS ORDERED: PROAIR HFA8.5 GM INH (00:02)
[2017-01-06 03:23] VITALS: BP 115/70
[2017-01-06 05:10] LABS: BASOPHILS % (AUTO) 0.5 % (0.0-2.0); EOSINOPHILS % (AUTO) 0.3 % (0.0-3.0); LYMPHOCYTES % (AUTO) 31.7 % (20.0-45.0); MEAN CORPUSCULAR HEMOGLOBIN 30.5 PG (27.0-31.0); MEAN CORPUSCULAR HGB CONC 34.4 G/DL (32.0-36.0); MEAN CORPUSCULAR VOLUME 89 FL (80-99); MEAN PLATELET VOLUME 7.2 FL (6.5-10.1); MONOCYTES % (AUTO) 7.7 % (1.0-10.0); NEUTROPHILS % (AUTO) 59.8 % (45.0-75.0); PLATELET COUNT 200 K/UL (150-450); RED BLOOD COUNT 4.19 M/UL (4.20-5.40); RED CELL DISTRIBUTION WIDTH 11.2 % (11.6-14.8)
[2017-01-06 05:29] LABS: ANION GAP 13 (5-15); CALCIUM 8.9 mg/dL (8.6-10.2); CARBON DIOXIDE 24 mEQ/L (20-30); CHLORIDE 104 mEQ/L (98-107); CREATININE 0.6 mg/dL (0.5-0.9); GLOMERULAR FILTRATION RATE > 60 mL/min (>60); HEMOLYSIS 10; POTASSIUM 3.5 mEQ/L (3.4-4.9); SODIUM 141 mEQ/L (135-145)
[2017-01-06] MEDS: D5 1/2NS 1,000 ML IV SCH (06:52)
[2017-01-06 06:55] VITALS: BP 134/72
[2017-01-06 08:23] VITALS: BP 121/87
[2017-01-06 08:57] VITALS: BP 121/87
[2017-01-06] MEDS ORDERED: Pantoprazole Inj IV SCH (09:00)
--- NOTE | 2017-01-06 09:15 | Emergency Room Report ---
Physical Exam Vital Signs Date Time Temp Pulse Resp B/P Pulse Ox O2 Delivery O2 Flow Rate FiO2 01/05/17 14:48 98.8 101 20 148/102 99 Room Air Medical Decision Making Diagnostic Impression: Primary Impression: Cyclic vomiting syndrome Additional Impressions: Dehydration Hypercalcemia ER Course Patient admitted yesterday for cyclical vomiting syndrome. Recently admitted to the hospital patient kept in emergency room overnight because of boarding issues. She denies any nausea or vomiting overnight. ate her breakfast morning without difficulty. States she feels better and wishes to be discharged Vitals stable. Labs reviewed with no electrolyte abnormalities. Bleed patient be safely discharged to home at this time pending outpatient followup patient states she already has prescriptions at home for Ativan and Zofran Diagnoses-cyclical vomiting syndrome Stable and discharged to home. Followup with PMD. Return to ED if symptoms recur or worsen Labs Test 01/05/17 15:13 01/06/17 04:40 White Blood Count 11.5 K/UL (4.8-10.8) 10.0 K/UL (4.8-10.8) Red Blood Count 5.56 M/UL (4.20-5.40) 4.19 M/UL (4.20-5.40) Hemoglobin 16.5 G/DL (12.0-16.0) 12.8 G/DL (12.0-16.0) Hematocrit 48.9 % (37.0-47.0) 37.2 % (37.0-47.0) Mean Corpuscular Volume 88 FL (80-99) 89 FL (80-99) Mean Corpuscular Hemoglobin 29.7 PG (27.0-31.0) 30.5 PG (27.0-31.0) Mean Corpuscular Hemoglobin Concent 33.8 G/DL (32.0-36.0) 34.4 G/DL (32.0-36.0) Red Cell Distribution Width 11.1 % (11.6-14.8) 11.2 % (11.6-14.8) Platelet Count 268 K/UL (150-450) 200 K/UL (150-450) Mean Platelet Volume 7.0 FL (6.5-10.1) 7.2 FL (6.5-10.1) Neutrophils (%) (Auto) 69.5 % (45.0-75.0) 59.8 % (45.0-75.0) Lymphocytes (%) (Auto) 23.9 % (20.0-45.0) 31.7 % (20.0-45.0) Monocytes (%) (Auto) 5.7 % (1.0-10.0) 7.7 % (1.0-10.0) Eosinophils (%) (Auto) 0.1 % (0.0-3.0) 0.3 % (0.0-3.0) Basophils (%) (Auto) 0.9 % (0.0-2.0) 0.5 % (0.0-2.0) Urine Color Yellow Urine Appearance Slightly cloudy Urine pH 6 (4.5-8.0) Urine Specific [place] 1.015 (1.005-1.035) Urine Protein 1+ (NEGATIVE) Urine Glucose (UA) Negative (NEGATIVE) Urine Ketones 2+ (NEGATIVE) Urine Occult Blood 4+ (NEGATIVE) Urine Nitrite Negative (NEGATIVE) Urine Bilirubin Negative (NEGATIVE) Urine Urobilinogen Normal MG/DL (0.0-1.0) Urine Leukocyte Esterase Negative (NEGATIVE) Urine RBC 0-2 /HPF (0 - 2) Urine WBC 2-4 /HPF (0 - 2) Urine Squamous Epithelial Cells Few /LPF (NONE/OCC) Urine Bacteria Few /HPF (NONE) Urine HCG, Qualitative Negative Sodium Level 141 mEQ/L (135-145) 141 mEQ/L (135-145) Potassium Level 3.9 mEQ/L (3.4-4.9) 3.5 mEQ/L (3.4-4.9) Chloride Level 96 mEQ/L (98-107) 104 mEQ/L (98-107) Carbon Dioxide Level 21 mEQ/L (20-30) 24 mEQ/L (20-30) Anion Gap 24 (5-15) 13 (5-15) Blood Urea Nitrogen 16 mg/dL (7-23) 10 mg/dL (7-23) Creatinine 1.0 mg/dL (0.5-0.9) 0.6 mg/dL (0.5-0.9) Estimat Glomerular Filtration Rate > 60 mL/min (>60) > 60 mL/min (>60) Glucose Level 119 mg/dL (74-106) 173 mg/dL (74-106) Calcium Level 10.4 mg/dL (8.6-10.2) 8.9 mg/dL (8.6-10.2) Total Bilirubin 0.4 mg/dL (0.0-1.2) Aspartate Amino Transf (AST/SGOT) 49 U/L (5-40) Alanine Aminotransferase (ALT/SGPT) 33 U/L (3-33) Alkaline Phosphatase 50 U/L (35-104) Total Protein 7.8 g/dL (6.6-8.7) Albumin 5.0 g/dL (3.5-5.2) Globulin 2.8 g/dL Albumin/Globulin Ratio 1.7 (1.0-2.7) Last Vital Signs Date Time Temp Pulse Resp B/P Pulse Ox O2 Delivery O2 Flow Rate FiO2 01/06/17 08:57 97.8 63 20 121/87 99 Room Air Status: improved Disposition: HOME, SELF-CARE Condition: Stable Referrals: DEENA MCDOWELL (PCP) MART GUERRERO MEHRDAD Patient Instructions: Cyclic Vomiting Syndrome, Pediatric EVELYN PUTNAM M.D. Jan 06, 2017 09:15
== END 2017-01-06 09:03 | disposition home or self-care (01) ==
LOC: EMR 16:17 → EDBEDREQ 19:06 → CANBEDREQ 01-06 08:58 → EMR 01-06 09:03
DX: G43.A0 Cyclical vomiting, in migraine, not intractable (principal); E86.0 Dehydration; E83.52 Hypercalcemia; J45.909 Unspecified asthma, uncomplicated; Z88.2 Allergy status to sulfonamides
CPT/HCPCS: 36415; 80048; 80053; 81001; 81025; 82962; 85025; 87081; 96374; 96375; 99284; J0780; J1200; J2270; J2405; J2930; S0028

== ENCOUNTER 2017-02-11 01:05 | Emergency (ER) | payer MEDICAID ==
[~2017-02-11] VITALS: Ht 172.7 cm; Wt 59.0 kg
[~2017-02-11 01:05] MED LIST changes: +PROAIR HFA8.5 GM INH
[2017-02-11] MEDS ORDERED: LORazepam Inj 2mg/ml 1ml IV ONE (01:30)
[2017-02-11 02:11] LABS: BASOPHILS % (AUTO) 0.4 % (0.0-2.0); LYMPHOCYTES % (AUTO) 11.9 % (20.0-45.0); MEAN CORPUSCULAR HEMOGLOBIN 30.9 PG (27.0-31.0); MEAN CORPUSCULAR HGB CONC 35.3 G/DL (32.0-36.0); MEAN CORPUSCULAR VOLUME 88 FL (80-99); MEAN PLATELET VOLUME 6.7 FL (6.5-10.1); NEUTROPHILS % (AUTO) 83.8 % (45.0-75.0); PLATELET COUNT 255 K/UL (150-450); RED BLOOD COUNT 4.72 M/UL (4.20-5.40); RED CELL DISTRIBUTION WIDTH 11.8 % (11.6-14.8); WHITE BLOOD COUNT 16.6 K/UL (4.8-10.8)
[2017-02-11 02:12] VITALS: BP 124/70
--- NOTE | 2017-02-11 02:26 | Emergency Room Report ---
History of Present Illness General Chief Complaint: Vomiting Source: Patient Present Illness HPI 31 YOF with known cyclic vomiting syndrome presents with vomiting for 1 day. States abd hurts "because I've been vomiting so much." She denies previous abd surgery, diarrhea, fever/chills, foreign travel. Makes specific request for IV zofran, ativan and morphine. Per EMR, numerous visits to ER and for admission for cyclic vomiting. Multiple times tested positive for MJ. Allergies: Coded Allergies: PROCHLORPERAZINE (Verified Allergy, Intermediate, hives on left forearm, ) allergic reaction from pt was admitted to ED on 01/05/17 SULFA (SULFONAMIDE ANTIBIOTICS) (Verified Allergy, Unknown, 02/23/11) Patient History Past Medical History: other - ?Cyclic vomiting syndrome Past Surgical History: none Pertinent Family History: none Social History: Denies: alcohol use, drug use, smoking Last Menstrual Period: 3 weeks ago Immunizations: UTD Reviewed Nursing Documentation: PMH: Agreed, PSxH: Agreed Nursing Documentation-PMH Hx Cardiac Problems: No Hx Hypertension: No Hx Pacemaker: No Hx Asthma: Yes Hx COPD: No Hx Diabetes: No Hx Cancer: No Hx Gastrointestinal Problems: Yes - CYCLIC VOMITING Hx Dialysis: No Hx Neurological Problems: No Hx Cerebrovascular Accident: No Hx Transient Ischemic Attacks: No Hx Dementia: No Hx Alzheimer's Disease: No Hx Parkinson's Disease: No Hx Meningitis: No Hx Encephalitis: No Hx Seizures: No Hx Epilepsy: No Hx Multiple Sclerosis: No Hx Cerebral Palsy: No Hx Amyotrophic Lat Sclerosis: No Hx Guillian-[place] Syndrome: No Hx Paralysis: No Hx Peripheral Neuropathy: No Hx Spinal Cord Injury: No Hx Head Trauma: No Hx Traumatic Brain Injury: No Hx Memory Loss: No Hx Concentration Difficulty: No Hx Speech Problem: No Hx Tremors: No Hx Vertigo: No Hx Dizziness: No Hx Syncope: No Hx Headaches: No Hx Aphasia: No Hx Dysphasia: No Hx Numbness: No Hx Weakness: No Hx Fatigue: No Hx Neurologic Surgery: No Hx Brain Shunt: No Review of Systems All Other Systems: negative except mentioned in HPI Physical Exam Vital Signs Date Time Temp Pulse Resp B/P Pulse Ox O2 Delivery O2 Flow Rate FiO2 02/11/17 01:08 97.9 108 16 149/110 96 Room Air Sp02 EP Interpretation: reviewed, normal General Appearance: normal inspection, no apparent distress, alert, GCS 15, non -toxic, mild distress, other - Actively vomiting Head: normocephalic, atraumatic Eyes: bilateral eye EOMI, bilateral eye PERRL ENT: normal ENT inspection, hearing grossly normal, normal voice Neck: normal inspection, full range of motion, supple, no bony tend Respiratory: normal inspection, lungs clear, normal breath sounds, no respiratory distress, no retraction, no wheezing Cardiovascular #1: regular rate, rhythm, no edema Gastrointestinal: normal inspection, normal bowel sounds, non tender, soft, no mass, no guarding, no hernia, no pulsatile mass, no rebound Genitourinary: no CVA tenderness Musculoskeletal: normal inspection, back normal, normal range of motion, Diamond' s Sign negative Neurologic: normal inspection, alert, oriented x3, responsive, tennis desk team member III-XII nml as tested, motor strength/tone normal, speech normal Psychiatric: normal inspection, memory normal Skin: normal inspection, normal color Lymphatic: normal inspection, no adenopathy Medical Decision Making Diagnostic Impression: Primary Impression: Vomiting Qualified Codes: G43.A0 - Cyclical vomiting, not intractable ER Course Cyclic vomiting syndrome, in the setting of marijuana abuse Leuks 16k however has had elevated leuks multiple times in the past, likely reactionary, stress-induced. Low suspicion for acute bacterial process in abdomen, chest, urine, nervous system to warrant additional laboratory/imaging, or admission Improved in ED after zofran, ativan Tolerating PO DC home Last Vital Signs Date Time Temp Pulse Resp B/P Pulse Ox O2 Delivery O2 Flow Rate FiO2 02/11/17 02:12 97.9 63 16 124/70 99 Room Air Status: improved Disposition: HOME, SELF-CARE Referrals: NOT CHOSEN IPA/,REFERRING (PCP) MEGAN CARROLL M.D. Feb 11, 2017 02:26
[2017-02-11 02:30] LABS: ALANINE AMINOTRANSFERASE 18 U/L (3-33); ALBUMIN/GLOBULIN RATIO 1.8 (1.0-2.7); ANION GAP 26 (5-15); ASPARTATE AMINO TRANSFERASE 22 U/L (5-40); CALCIUM 10.7 mg/dL (8.6-10.2); CARBON DIOXIDE 22 mEQ/L (20-30); CHLORIDE 98 mEQ/L (98-107); CREATININE 0.8 mg/dL (0.5-0.9); GLOMERULAR FILTRATION RATE > 60 mL/min (>60); HEMOLYSIS 6; LIPASE 22 U/L (< 60); POTASSIUM 3.3 mEQ/L (3.4-4.9); SODIUM 146 mEQ/L (135-145); TOTAL PROTEIN 8.3 g/dL (6.6-8.7)
[2017-02-11 02:51] VITALS: BP 114/73
[2017-02-11 04:20] VITALS: BP 114/73
[2017-02-11 04:23] LABS: APPEARANCE,URINE CLEAR; KETONES,URINE 4+ (NEGATIVE); LEUKOCYTE ESTERASE ,URINE NEGATIVE (NEGATIVE); NITRITE,URINE NEGATIVE (NEGATIVE); PH,URINE 6 (4.5-8.0); PROTEIN,URINE 3+ (NEGATIVE); UROBILINOGEN,URINE NORMAL MG/DL (0.0-1.0)
[2017-02-11 04:35] LABS: BACTERIA,URINE FEW /HPF; MUCUS,URINE MODERATE /LPF (NONE/OCC); SQUAMOUS EPITHELIAL CELL,UR FEW /LPF (NONE/OCC); WBC,URINE 0-2 /HPF (0 - 2)
== END 2017-02-11 04:20 | disposition home or self-care (01) ==
LOC: EMR 01:25
DX: G43.A0 Cyclical vomiting, in migraine, not intractable (principal); J45.909 Unspecified asthma, uncomplicated; Z88.8 Allergy status to other drugs, medicaments and biological substances; Z88.2 Allergy status to sulfonamides
CPT/HCPCS: 36415; 80053; 80300; 81003; 81025; 83690; 85025; 96360; 96374; 96375; 99284; J2405

== ENCOUNTER 2017-05-16 14:44 | Inpatient (IN) | payer MEDICAID ==
[~2017-05-16] VITALS: Ht 172.7 cm; Wt 59.0 kg
[2017-05-16] MEDS ORDERED: LORazepam Inj 2mg/ml 1ml IV ONE ×2 (15:00→20:00)
[2017-05-16 16:24] LABS: ALANINE AMINOTRANSFERASE 14 U/L (3-33); ALBUMIN/GLOBULIN RATIO 1.7 (1.0-2.7); ANION GAP 23 (5-15); ASPARTATE AMINO TRANSFERASE 21 U/L (5-40); CALCIUM 9.7 mg/dL (8.6-10.2); CARBON DIOXIDE 20 mEQ/L (20-30); CHLORIDE 99 mEQ/L (98-107); CREATININE 0.7 mg/dL (0.5-0.9); GLOMERULAR FILTRATION RATE > 60 mL/min (>60); HEMOLYSIS 31; LIPASE 20 U/L (< 60); POTASSIUM 3.7 mEQ/L (3.4-4.9); SODIUM 142 mEQ/L (135-145); TOTAL PROTEIN 7.7 g/dL (6.6-8.7)
[2017-05-16 16:29] LABS: BASOPHILS % (AUTO) 0.9 % (0.0-2.0); EOSINOPHILS % (AUTO) 0.1 % (0.0-3.0); LYMPHOCYTES % (AUTO) 21.2 % (20.0-45.0); MEAN CORPUSCULAR HEMOGLOBIN 30.5 PG (27.0-31.0); MEAN CORPUSCULAR HGB CONC 33.9 G/DL (32.0-36.0); MEAN CORPUSCULAR VOLUME 90 FL (80-99); MEAN PLATELET VOLUME 5.8 FL (6.5-10.1); MONOCYTES % (AUTO) 4.4 % (1.0-10.0); NEUTROPHILS % (AUTO) 73.4 % (45.0-75.0); PLATELET COUNT 224 K/UL (150-450); RED BLOOD COUNT 4.49 M/UL (4.20-5.40)
[2017-05-16] MEDS ORDERED: Morphine Sulfate 4mg/ml Inj IVP ONE (16:30)
[2017-05-16 16:57] VITALS: BP 147/78
[2017-05-16 17:04] LABS: KETONES,URINE 4+ (NEGATIVE); LEUKOCYTE ESTERASE ,URINE NEGATIVE (NEGATIVE); NITRITE,URINE NEGATIVE (NEGATIVE); PH,URINE 6 (4.5-8.0); PROTEIN,URINE 2+ (NEGATIVE); UROBILINOGEN,URINE NORMAL MG/DL (0.0-1.0)
[2017-05-16 17:05] LABS: APPEARANCE,URINE SLIGHTLY CLOUDY
[2017-05-16 17:09] LABS: BACTERIA,URINE FEW /HPF; SQUAMOUS EPITHELIAL CELL,UR FEW /LPF (NONE/OCC); WBC,URINE 0-2 /HPF (0 - 2)
--- NOTE | 2017-05-16 19:05 | Emergency Room Report ---
History of Present Illness General Chief Complaint: Vomiting Source: Patient Present Illness HPI 32-year-old female presents to ED with abdominal pain and vomiting which started this morning. Patient states she has history of cyclical vomiting syndrome. Admits to marijuana use. Has been here multiple times in the past for similar presentation. Patient states he feels very anxious. Notes epigastric pain, burning, 7/10. Worse with vomiting. Denies chest pain or shortness of breath. Denies fevers or chills. No other aggravating or relieving factors. Denies any other associated symptom Allergies: Coded Allergies: PROCHLORPERAZINE (Verified Allergy, Intermediate, hives on left forearm, ) allergic reaction from pt was admitted to ED on 01/05/17 SULFA (SULFONAMIDE ANTIBIOTICS) (Verified Allergy, Unknown, 02/23/11) Patient History Past Medical History: asthma, other - cyclical vomiting Past Surgical History: none Pertinent Family History: none Social History: Denies: alcohol use, drug use, smoking Last Menstrual Period: Two weeks ago Now: No Immunizations: UTD Reviewed Nursing Documentation: PMH: Agreed, PSxH: Agreed Nursing Documentation-PMH Hx Cardiac Problems: No Hx Hypertension: No Hx Pacemaker: No Hx Asthma: Yes Hx COPD: No Hx Diabetes: No Hx Cancer: No Hx Gastrointestinal Problems: Yes - CYCLIC VOMITING Hx Dialysis: No Hx Neurological Problems: No Hx Cerebrovascular Accident: No Hx Transient Ischemic Attacks: No Hx Dementia: No Hx Alzheimer's Disease: No Hx Parkinson's Disease: No Hx Meningitis: No Hx Encephalitis: No Hx Seizures: No Hx Epilepsy: No Hx Multiple Sclerosis: No Hx Cerebral Palsy: No Hx Amyotrophic Lat Sclerosis: No Hx Guillian-[place] Syndrome: No Hx Paralysis: No Hx Peripheral Neuropathy: No Hx Spinal Cord Injury: No Hx Head Trauma: No Hx Traumatic Brain Injury: No Hx Memory Loss: No Hx Concentration Difficulty: No Hx Speech Problem: No Hx Tremors: No Hx Vertigo: No Hx Dizziness: No Hx Syncope: No Hx Headaches: No Hx Aphasia: No Hx Dysphasia: No Hx Numbness: No Hx Weakness: No Hx Fatigue: No Hx Neurologic Surgery: No Hx Brain Shunt: No Review of Systems All Other Systems: negative except mentioned in HPI Physical Exam Vital Signs Date Time Temp Pulse Resp B/P Pulse Ox O2 Delivery O2 Flow Rate FiO2 05/16/17 14:45 98.1 93 18 160/92 98 Room Air Sp02 EP Interpretation: reviewed, normal General Appearance: no apparent distress, alert, GCS 15, non-toxic Head: normocephalic, atraumatic Eyes: bilateral eye PERRL, bilateral eye normal inspection ENT: hearing grossly normal, normal pharynx, no angioedema, normal voice Neck: full range of motion, supple/symm/no masses Respiratory: chest non-tender, lungs clear, normal breath sounds, speaking full sentences Cardiovascular #1: regular rate, rhythm, no edema Cardiovascular #2: 2+ carotid (R), 2+ carotid (L), 2+ radial (R), 2+ radial (L) , 2+ dorsalis pedis (R), 2+ dorsalis pedis (L) Gastrointestinal: normal bowel sounds, non tender, soft, non-distended, no guarding, no rebound Rectal: deferred Genitourinary: normal inspection, no CVA tenderness Musculoskeletal: back normal, gait/station normal, normal range of motion, non- tender Neurologic: alert, oriented x3, responsive, motor strength/tone normal, sensory intact, speech normal Psychiatric: judgement/insight normal, memory normal, anxious Reflexes: 3+ bicep (R), 3+ bicep (L), 3+ tricep (R), 3+ tricep (L), 3+ knee (R) , 3+ knee (L) Skin: normal color, no rash, warm/dry, well hydrated Lymphatic: no adenopathy Medical Decision Making Diagnostic Impression: Primary Impression: Intractable nausea and vomiting Qualified Codes: G43.A1 - Cyclical vomiting, intractable ER Course Hospital Course 32-year-old female presents ED complaining of abdominal pain with nausea and vomiting. History of cyclical vomiting Differential diagnoses include: Dehydration, gastritis, sepsi Clinical course Patient placed on stretcher. On threat monitoring analyst. After initial history and physical, I ordered labs, IV fluids, Zantac, Zofran, Ativan Patient had difficult IV access. I placed a peripheral EJ line Labs - minimal leukocytosis, hemoglobin/hematocrit stable, electrolytes okay Despite multiple rounds of medication patient continues to have vomiting. I believe patient requires admission at this time Case discussed with Dr Cotto/Toyin and they agreed to admit patient to their service for further care and support I feel this is a highly complex case requiring extensive working including EKG/ Rhythm strip, Xray/CT/US, Blood/urine lab work, repeat exams while in ED, and administration of strong opiates/narcotics for pain control, admission to hospital or close patient follow up. Diagnosis - intractable nausea and vomiting Patient admitted to floor in serious condition Labs Test 05/16/17 15:25 05/16/17 16:25 White Blood Count 11.0 K/UL (4.8-10.8) Red Blood Count 4.49 M/UL (4.20-5.40) Hemoglobin 13.7 G/DL (12.0-16.0) Hematocrit 40.4 % (37.0-47.0) Mean Corpuscular Volume 90 FL (80-99) Mean Corpuscular Hemoglobin 30.5 PG (27.0-31.0) Mean Corpuscular Hemoglobin Concent 33.9 G/DL (32.0-36.0) Red Cell Distribution Width 11.0 % (11.6-14.8) Platelet Count 224 K/UL (150-450) Mean Platelet Volume 5.8 FL (6.5-10.1) Neutrophils (%) (Auto) 73.4 % (45.0-75.0) Lymphocytes (%) (Auto) 21.2 % (20.0-45.0) Monocytes (%) (Auto) 4.4 % (1.0-10.0) Eosinophils (%) (Auto) 0.1 % (0.0-3.0) Basophils (%) (Auto) 0.9 % (0.0-2.0) Sodium Level 142 mEQ/L (135-145) Potassium Level 3.7 mEQ/L (3.4-4.9) Chloride Level 99 mEQ/L (98-107) Carbon Dioxide Level 20 mEQ/L (20-30) Anion Gap 23 (5-15) Blood Urea Nitrogen 11 mg/dL (7-23) Creatinine 0.7 mg/dL (0.5-0.9) Estimat Glomerular Filtration Rate > 60 mL/min (>60) Glucose Level 147 mg/dL (74-106) Calcium Level 9.7 mg/dL (8.6-10.2) Total Bilirubin 0.3 mg/dL (0.0-1.2) Aspartate Amino Transf (AST/SGOT) 21 U/L (5-40) Alanine Aminotransferase (ALT/SGPT) 14 U/L (3-33) Alkaline Phosphatase 53 U/L (35-104) Total Protein 7.7 g/dL (6.6-8.7) Albumin 4.9 g/dL (3.5-5.2) Globulin 2.8 g/dL Albumin/Globulin Ratio 1.7 (1.0-2.7) Lipase 20 U/L (< 60) Urine Color Pale yellow Urine Appearance Slightly cloudy Urine pH 6 (4.5-8.0) Urine Specific [place] 1.015 (1.005-1.035) Urine Protein 2+ (NEGATIVE) Urine Glucose (UA) Negative (NEGATIVE) Urine Ketones 4+ (NEGATIVE) Urine Occult Blood 1+ (NEGATIVE) Urine Nitrite Negative (NEGATIVE) Urine Bilirubin Negative (NEGATIVE) Urine Urobilinogen Normal MG/DL (0.0-1.0) Urine Leukocyte Esterase Negative (NEGATIVE) Urine RBC 2-4 /HPF (0 - 2) Urine WBC 0-2 /HPF (0 - 2) Urine Squamous Epithelial Cells Few /LPF (NONE/OCC) Urine Bacteria Few /HPF (NONE) Urine HCG, Qualitative Negative Last Vital Signs Date Time Temp Pulse Resp B/P Pulse Ox O2 Delivery O2 Flow Rate FiO2 05/16/17 17:11 98.1 05/16/17 16:57 82 16 147/78 99 Room Air Status: improved Disposition: ADMITTED INPATIENT Condition: Serious Referrals: [facility],REFERRING (PCP) EVELYN PUTNAM M.D. May 16, 2017 19:05
[2017-05-16 19:28] VITALS: BP 160/78
[2017-05-16] MEDS ORDERED: LORazepam Inj 2mg/ml 1ml IV PRN (20:00)
[2017-05-16] MEDS ORDERED: Albuterol ud Inhalation HHN PRN (20:00)
[2017-05-16 20:30] VITALS: BP 150/76
[2017-05-16 21:00] VITALS: BP 142/79
[2017-05-16] MEDS: D5 1/2NS 1,000 ML IV SCH (21:00)
[2017-05-16] MEDS ORDERED: Morphine Sulfate 2mg/ml Inj IVP PRN ×2 (23:45)
[2017-05-17] VITALS: BP 139/82
[2017-05-17 04:00] VITALS: BP 129/81
[2017-05-17] MEDS: D5 1/2NS 1,000 ML IV SCH ×2 (05:00→13:02)
[2017-05-17] MEDS: Metoclopramide 10mg/2ml Inj IVP PRN ×3 (06:38→15:30)
[2017-05-17 08:00] VITALS: BP 128/76
[2017-05-17 08:16] LABS: ANION GAP 17 (5-15); CALCIUM 8.9 mg/dL (8.6-10.2); CARBON DIOXIDE 22 mEQ/L (20-30); CHLORIDE 99 mEQ/L (98-107); CREATININE 0.6 mg/dL (0.5-0.9); GLOMERULAR FILTRATION RATE > 60 mL/min (>60); HEMOLYSIS 3; POTASSIUM 3.2 mEQ/L (3.4-4.9); SODIUM 138 mEQ/L (135-145)
[2017-05-17] MEDS: LORazepam Inj 2mg/ml 1ml IV PRN ×3 (10:06→20:02)
[2017-05-17 12:00] VITALS: BP 122/71
[2017-05-17] MEDS: Morphine Sulfate 4mg/ml Inj IVP PRN ×3 (13:02→23:15)
[2017-05-17 16:00] VITALS: BP 124/71
[2017-05-17] MEDS: D5 1/2NS w/KCl 20mEq 1,000 ML IV SCH (18:42)
--- NOTE | 2017-05-17 19:16 | History and Physical ---
History of Present Illness General Date patient seen: May 17, 2017 Time patient seen: 19:12 Reason for Hospitalization: Vomiting Present Illness HPI 32-year-old female presented to ED with abdominal pain and vomiting which started yesterday morning. Patient states she has history of cyclical vomiting syndrome. Admits to marijuana use, last use of cannabis was 2 days ago. Has been here multiple times in the past for similar presentation. Notes epigastric pain, burning, 7/10. Worse with vomiting. Denies chest pain or shortness of breath. Denies fevers or chills. No melena or hematochezia, admitted overnight with IV fluids, pain meds and antiemetics, states feels slightly better but still very nauseous Allergies: Coded Allergies: PROCHLORPERAZINE (Verified Allergy, Intermediate, hives on left forearm, ) allergic reaction from pt was admitted to ED on 01/05/17 SULFA (SULFONAMIDE ANTIBIOTICS) (Verified Allergy, Unknown, 02/23/11) Medication History Scheduled Albuterol Sulfate* (Proair Hfa*), 1 PUFF INH Q6H, (Reported) Scheduled PRN Lorazepam* (Ativan*), 1 MG ORAL Q4HR PRN for Nausea & Vomiting, (Reported) Ondansetron Hcl* (Zofran*), 8 MG ORAL Q4HR PRN for Nausea & Vomiting, (Reported) Patient History History Provided By: Patient Healthcare decision maker Resuscitation status Full Code Advanced Directive on File Past Medical/Surgical History Past Medical/Surgical History: (1) Cannabis abuse (2) Cyclic vomiting syndrome Family History Family History: Patient reports no known family medical history. Social History Social History: (1) No significant social history Review of Systems ROS Narrative CONSTITUTIONAL: No weight loss, fever, chills, weakness or fatigue. HEENT: Eyes: No visual loss, blurred vision, double vision or yellow sclerae. Ears, Nose, Throat: No hearing loss, sneezing, congestion, runny nose or sore throat. SKIN: No rash or itching. CARDIOVASCULAR: No chest pain, chest pressure or chest discomfort. No palpitations or edema. RESPIRATORY: No shortness of breath, cough or sputum. GASTROINTESTINAL: No anorexia, +nausea, +vomiting no diarrhea. + abdominal pain no blood. NEUROLOGICAL: No headache, dizziness, syncope, paralysis, ataxia, numbness or tingling in the extremities. No change in bowel or bladder control. MUSCULOSKELETAL: No muscle, back pain, joint pain or stiffness. HEMATOLOGIC: No anemia, bleeding or bruising. LYMPHATICS: No enlarged nodes. No history of splenectomy. PSYCHIATRIC: No history of depression or anxiety. ENDOCRINOLOGIC: No reports of sweating, cold or heat intolerance. No polyuria or polydipsia. ALLERGIES: No history of asthma, hives, eczema or rhinitis. Physical Exam Physical Exam Narrative General: alert, cooperative, no distress, appears stated age Head: normocephalic, without obvious abnormality, atraumatic Eyes: conjunctivae/corneas clear. PERRL, EOM's intact Throat: lips, mucosa, and tongue normal. MMM Neck: supple, symmetrical, trachea midline, and no JVD Lungs: clear to auscultation bilaterally Heart: regular rate and rhythm, S1, S2 normal, no murmur, click, rub or gallop Abdomen: soft, non-tender, non-distended, bowel sounds normal; no masses or organomegaly Extremities: extremities normal, atraumatic, no cyanosis or edema Pulses: 2+ and symmetric Skin: skin color, texture, turgor normal; no rashes or lesions Neurologic: grossly normal, no focal deficits Last 24 Hour Vital Signs Date Time Temp Pulse Resp B/P Pulse Ox O2 Delivery O2 Flow Rate FiO2 05/17/17 18:12 98.2 05/17/17 16:00 98.2 73 18 124/71 98 Room Air 05/17/17 12:00 97.5 81 18 122/71 97 Room Air 05/17/17 08:40 84 17 Room Air 05/17/17 08:00 98.8 84 17 128/76 95 Room Air 05/17/17 04:00 98.0 72 18 129/81 98 Room Air 05/17/17 00:00 98.6 71 18 139/82 99 Room Air 05/16/17 21:00 98.4 73 16 142/79 100 Room Air 05/16/17 20:40 75 18 139/79 98 Room Air 05/16/17 20:30 99 18 150/76 98 Room Air 05/16/17 19:28 97.9 97 18 160/78 100 Room Air 05/16/17 19:15 82 18 Room Air Intake and Output 05/16/17 05/17/17 19:00 07:00 Intake Total 2000 ml 125 ml Balance 2000 ml 125 ml Intake Oral 0 ml IV Total 2000 ml 125 ml # Voids 1 Laboratory Tests Test 05/17/17 05:15 Sodium Level 138 mEQ/L (135-145) Potassium Level 3.2 mEQ/L (3.4-4.9) L Chloride Level 99 mEQ/L (98-107) Carbon Dioxide Level 22 mEQ/L (20-30) Anion Gap 17 (5-15) H Blood Urea Nitrogen 7 mg/dL (7-23) Creatinine 0.6 mg/dL (0.5-0.9) Estimat Glomerular Filtration Rate > 60 mL/min (>60) Glucose Level 139 mg/dL (74-106) H Lactic Acid Level 0.80 mmol/L (0.66-2.22) Calcium Level 8.9 mg/dL (8.6-10.2) Magnesium Level Pending Height (Feet): 5 Height (Inches): 8.00 Weight (Pounds): 130 Medications Current Medications Medications (Trade) Dose Ordered Sig/Shanta Route PRN Reason Start Time Stop Time Status Last Admin Dose Admin Acetaminophen (Tylenol) 650 mg Q4H PRN ORAL Mild Pain/Temp > 100.5 05/16/17 23:45 06/15/17 23:44 Albuterol Sulfate (Proventil) 2.5 mg EVERY 4 HOURS PRN HHN Shortness of Breath 05/16/17 20:00 05/21/17 19:59 Dextrose/ Electrolytes (D5 0.45%NS W/ KCl 20mEq) 1,000 ml @ 125 mls/hr Q8H IV 05/17/17 19:00 06/16/17 18:59 05/17/17 18:42 Lorazepam (Ativan 2mg/ml 1ml) 2 mg Q4H PRN IV For Anxiety 05/17/17 00:15 05/24/17 00:14 05/17/17 15:30 Metoclopramide HCl (Reglan) 10 mg Q4H PRN IVP Nausea & Vomiting 05/16/17 23:45 06/15/17 23:44 05/17/17 15:30 Morphine Sulfate (Morphine Sulfate) 2 mg Q4H PRN IVP Moderate Pain (Pain Scale 4-6) 05/16/17 23:45 05/23/17 23:44 Morphine Sulfate 4 mg 4 mg Q4H PRN IVP Severe Pain (Pain Scale 7-10) 05/17/17 10:45 05/24/17 10:44 05/17/17 17:42 Ondansetron HCl (Zofran) 4 mg EVERY 6 HOURS PRN IVP Nausea & Vomiting 05/16/17 20:00 06/15/17 19:59 05/17/17 13:03 Assessment/Plan Problem List: (1) Intractable cyclical vomiting Assessment & Plan: Admit to inpatient IV fluids with 20meq KCL Antiemetics Supp care Pain control Replete K, check mag level ICD Codes: G43.A1 - Intractable cyclical vomiting SNOMED: 32970008 (2) Hypokalemia Assessment & Plan: replete KCL, check mag, check bmp, mag in AM ICD Codes: E87.6 - Hypokalemia SNOMED: 53335593 RADHA ISAAC May 17, 2017 19:16
[2017-05-17 20:33] VITALS: BP 126/78
[2017-05-18 00:49] VITALS: BP 128/70
[2017-05-18] MEDS: LORazepam Inj 2mg/ml 1ml IV PRN ×3 (01:05→11:41)
[2017-05-18] MEDS: Morphine Sulfate 4mg/ml Inj IVP PRN ×3 (03:33→13:37)
[2017-05-18] MEDS: D5 1/2NS w/KCl 20mEq 1,000 ML IV SCH ×2 (03:33→11:00)
[2017-05-18 04:00] VITALS: BP 132/75
[2017-05-18 07:14] LABS: ANION GAP 15 (5-15); CALCIUM 8.6 mg/dL (8.6-10.2); CARBON DIOXIDE 22 mEQ/L (20-30); CHLORIDE 102 mEQ/L (98-107); CREATININE 0.6 mg/dL (0.5-0.9); GLOMERULAR FILTRATION RATE > 60 mL/min (>60); HEMOLYSIS 6; MAGNESIUM 1.8 mg/dL (1.7-2.5); POTASSIUM 3.4 mEQ/L (3.4-4.9); SODIUM 139 mEQ/L (135-145)
[2017-05-18 07:48] VITALS: BP 126/68
--- NOTE | 2017-05-18 11:51 | Discharge Summary ---
Discharge Summary Hospital Course Date of Admission May 16, 2017 at 18:56 Date of Discharge May 18, 2017 Admitting Diagnosis cyclical vomiting syndrome ARELY Morgan is a 32 year old female who was admitted on May 16, 2017 at 18: 56 for Cyclical Vomitting Syndrome Consultations None Procedures None Hospital Course 32 y/o female admitted with cyclical vomiting syndrome, likely triggered by cannabis use. Pt was fluid resuscitated, given supp care and antiemetics, pain and nausea improved and requested to go home. Discharge Medications Continued Medications: Albuterol Sulfate* (Proair Hfa*) 8.5 Gm Hfa.aer.ad 1 PUFF INH Q6H, #8.5 GM 0 Refills Lorazepam* (Ativan*) 1 Mg Tablet 1 MG ORAL Q4HR PRN for Nausea & Vomiting, TAB Ondansetron Hcl* (Zofran*) 8 Mg Tablet 8 MG ORAL Q4HR PRN for Nausea & Vomiting, #4 TAB 0 Refills Discharge Condition Upon Discharge: stable Discharge Disposition Patient was discharged to home Discharge Diagnoses: (1) Cannabis abuse (2) Cyclic vomiting syndrome RADHA ISAAC May 18, 2017 11:51
[2017-05-18 11:52] VITALS: BP 140/87
[2017-05-18] MEDS ORDERED: KCl 10% 40mEq/30ml liquid NG ONE (12:15)
[2017-05-18] MEDS: Metoclopramide 10mg/2ml Inj IVP PRN (13:38)
[2017-05-18 16:09] VITALS: BP 118/64
[2017-05-30] MEDS ORDERED: ZOFRAN ODT4 MG ORAL (12:27)
== END 2017-05-18 17:32 | disposition home or self-care (01) | DRG 54 ==
LOC: EMR 15:01 → 3E 18:56 → EDBEDREQ 20:14 → UNDODISIN 05-18 17:32
DX: G43.A1 Cyclical vomiting, in migraine, intractable (principal); E87.6 Hypokalemia; R10.13 Epigastric pain; F12.10 Cannabis abuse, uncomplicated; Z88.2 Allergy status to sulfonamides; Z88.8 Allergy status to other drugs, medicaments and biological substances
CPT/HCPCS: 36415; 80048; 80053; 81003; 81025; 83605; 83690; 83735; 85025; 94664; J2405; J2765; J2780

== ENCOUNTER 2017-07-14 23:52 | Inpatient (IN) | payer OTHER, MEDICAID ==
[~2017-07-14] VITALS: Ht 172.7 cm; Wt 61.2 kg
[~2017-07-14 23:52] MED LIST changes: +ZOFRAN ODT4 MG ORAL
[2017-07-15] VITALS (8 sets, daily range): BP systolic 122–157; BP diastolic 80–95
--- NOTE | 2017-07-15 00:07 | Emergency Room Report ---
History of Present Illness General Chief Complaint: Nausea Source: Patient Present Illness HPI This is a 32-year-old female with a history of cyclic vomiting syndrome. She's been admitted to the hospital multiple times. She usually go to the hospital every 2-3 months for the same thing. She was doing well. Last time was here was 3 or 4 months ago. She presents with chief complaint abdominal pain with vomiting. Onset was tonight. [place] She just got back from [place] for her sister wedding. Pain is 10 out of 10. Unable to keep anything down. Unable to keep the Zofran down. Similar symptom in the past. No diarrhea. No fever or chills. No other complaint. Allergies: Coded Allergies: PROCHLORPERAZINE (Verified Allergy, Intermediate, hives on left forearm, ) allergic reaction from pt was admitted to ED on 01/05/17 SULFA (SULFONAMIDE ANTIBIOTICS) (Verified Allergy, Unknown, 02/23/11) Patient History Past Medical History: see triage record, old chart reviewed Past Surgical History: other Pertinent Family History: none Social History: Reports: drug use - Marijuana Last Menstrual Period: 07/07/17 Now: No Immunizations: other Reviewed Nursing Documentation: PMH: Agreed, PSxH: Agreed Nursing Documentation-PMH Past Medical History: No History, Except For Hx Cardiac Problems: No Hx Hypertension: No Hx Pacemaker: No Hx Asthma: Yes Hx COPD: No Hx Diabetes: No Hx Cancer: No Hx Gastrointestinal Problems: Yes - Cyclic Vomiting Syndrome Hx Dialysis: No Hx Neurological Problems: No Hx Cerebrovascular Accident: No Hx Transient Ischemic Attacks: No Hx Dementia: No Hx Alzheimer's Disease: No Hx Parkinson's Disease: No Hx Meningitis: No Hx Encephalitis: No Hx Seizures: No Hx Epilepsy: No Hx Multiple Sclerosis: No Hx Cerebral Palsy: No Hx Amyotrophic Lat Sclerosis: No Hx Guillian-[place] Syndrome: No Hx Paralysis: No Hx Peripheral Neuropathy: No Hx Spinal Cord Injury: No Hx Head Trauma: No Hx Traumatic Brain Injury: No Hx Memory Loss: No Hx Concentration Difficulty: No Hx Speech Problem: No Hx Tremors: No Hx Vertigo: No Hx Dizziness: No Hx Syncope: No Hx Headaches: No Hx Aphasia: No Hx Dysphasia: No Hx Numbness: No Hx Weakness: No Hx Fatigue: No Hx Neurologic Surgery: No Hx Brain Shunt: No Review of Systems Eye: Denies: blurred vision, eye pain ENT: Denies: ear pain, nose congestion, throat swelling Respiratory: Denies: cough, shortness of breath Cardiovascular: Denies: chest pain, palpitations Gastrointestinal: Reports: abdominal pain, nausea, vomiting, Denies: diarrhea Musculoskeletal: Denies: back pain, joint pain Skin: Denies: rash Neurological: Denies: headache, numbness Endocrine: Denies: increased thirst, increased urine Hematologic/Lymphatic: Denies: easy bruising All Other Systems: negative except mentioned in HPI Physical Exam Vital Signs Date Time Temp Pulse Resp B/P Pulse Ox O2 Delivery O2 Flow Rate FiO2 07/14/17 23:46 Room Air vitals with tachycardia Sp02 EP Interpretation: reviewed, normal General Appearance: well appearing, no apparent distress, alert Head: normocephalic, atraumatic Eyes: bilateral eye EOMI, bilateral eye PERRL ENT: hearing grossly normal, normal pharynx Neck: full range of motion, supple, no meningismus Respiratory: chest non-tender, lungs clear, normal breath sounds Cardiovascular #1: regular rate, rhythm, no murmur Gastrointestinal: no mass, no organomegaly, no bruit, non-distended, abnormal bowel sounds - Hypoactive, tenderness - diffuse Musculoskeletal: back normal, gait/station normal, normal range of motion Neurologic: alert, oriented x3 Psychiatric: anxious Skin: warm/dry Medical Decision Making Diagnostic Impression: Primary Impression: Cyclic vomiting syndrome Qualified Codes: G43.A1 - Cyclical vomiting, intractable Additional Impressions: Dehydration Anxiety Intractable nausea and vomiting Qualified Codes: G43.A1 - Cyclical vomiting, intractable ER Course Patient present with one of her cyclic vomiting episode. Of a lot of anxiety related also. Patient much better after Ativan and Zofran. No evidence of obstruction. She is dehydrated. IV hydration given. She felt better now. No longer vomiting here. We'll discharge home. patient slept for a few hours here. Woke up vomiting again. Said that she is not well enough to go home. Will admit for IV hydration. Lab Results Impression labs unremarkable Last Vital Signs Date Time Temp Pulse Resp B/P Pulse Ox O2 Delivery O2 Flow Rate FiO2 07/14/17 23:46 Room Air Status: improved Disposition: ADMITTED INPATIENT Condition: Serious Scripts Promethazine Hcl (PROMETHAZINE HCL) 25 Mg Supp.rect 25 MG RC Q6HR, #15 SUPP Prov: ODALIS BIRD M.D. 07/15/17 Additional Instructions: Taking your medication. Followup with your Dr. in 2 to 3 days. Return if symptom worsen. ODALIS BIRD M.D. Jul 15, 2017 00:07
[2017-07-15 00:11] LABS: BASOPHILS % (AUTO) 0.6 % (0.0-2.0); LYMPHOCYTES % (AUTO) 16.4 % (20.0-45.0); MEAN CORPUSCULAR HEMOGLOBIN 31.7 PG (27.0-31.0); MEAN CORPUSCULAR HGB CONC 34.7 G/DL (32.0-36.0); MEAN CORPUSCULAR VOLUME 91 FL (80-99); MEAN PLATELET VOLUME 6.9 FL (6.5-10.1); MONOCYTES % (AUTO) 1.7 % (1.0-10.0); NEUTROPHILS % (AUTO) 81.3 % (45.0-75.0); PLATELET COUNT 265 K/UL (150-450); RED BLOOD COUNT 4.73 M/UL (4.20-5.40); RED CELL DISTRIBUTION WIDTH 11.7 % (11.6-14.8); WHITE BLOOD COUNT 13.6 K/UL (4.8-10.8)
[2017-07-15] MEDS ORDERED: LORazepam Inj 2mg/ml 1ml IV ONE ×2 (00:15→02:30)
[2017-07-15] MEDS ORDERED: Morphine Sulfate 4mg/ml Inj IVP ONE (00:15)
[2017-07-15 00:28] LABS: ALANINE AMINOTRANSFERASE 16 U/L (3-33); ALBUMIN/GLOBULIN RATIO 1.6 (1.0-2.7); ANION GAP 21 (5-15); ASPARTATE AMINO TRANSFERASE 19 U/L (5-40); CARBON DIOXIDE 17 mEQ/L (20-30); CHLORIDE 103 mEQ/L (98-107); CREATININE 0.7 mg/dL (0.5-0.9); GLOMERULAR FILTRATION RATE > 60 mL/min (>60); HEMOLYSIS 14; LIPASE 17 U/L (< 60); POTASSIUM 3.8 mEQ/L (3.4-4.9); SODIUM 141 mEQ/L (135-145); TOTAL PROTEIN 7.9 g/dL (6.6-8.7)
[2017-07-15 01:17] LABS: APPEARANCE,URINE CLEAR; KETONES,URINE 4+ (NEGATIVE); LEUKOCYTE ESTERASE ,URINE NEGATIVE (NEGATIVE); NITRITE,URINE NEGATIVE (NEGATIVE); PH,URINE 5 (4.5-8.0); PROTEIN,URINE 2+ (NEGATIVE); UROBILINOGEN,URINE NORMAL MG/DL (0.0-1.0)
[2017-07-15 01:31] LABS: BACTERIA,URINE FEW /HPF; MUCUS,URINE MANY /LPF (NONE/OCC); SQUAMOUS EPITHELIAL CELL,UR FEW /LPF (NONE/OCC)
[2017-07-15] MEDS ORDERED: Metoclopramide 10mg/2ml Inj IVP ONE (01:45)
[2017-07-15] MEDS ORDERED: PROMETHAZINE HC25 MG RC (02:29)
[2017-07-15] MEDS ORDERED: Zolpidem 5mg tab ORAL PRN (07:45)
[2017-07-15] MEDS ORDERED: Milk of Magnesia 30ml Ud ORAL PRN (07:45)
[2017-07-15] MEDS ORDERED: Metoclopramide 10mg/2ml Inj IVP PRN (07:45)
[2017-07-15] MEDS ORDERED: Miralax 17gm pkt ORAL PRN (07:45)
[2017-07-15] MEDS ORDERED: LORazepam 1mg tab ORAL PRN (07:45)
[2017-07-15] MEDS ORDERED: Morphine Sulfate 4mg/ml Inj IVP PRN (07:45)
[2017-07-15] MEDS ORDERED: Acetaminophen 650 MG SUPP RECTAL PRN ×2 (07:45)
[2017-07-15] MEDS ORDERED: Mylanta II UD 30ml ORAL PRN (07:45)
[2017-07-15] MEDS: D5 1/2NS w/KCl 20mEq 1,000 ML IV SCH ×3 (08:00→18:31)
[2017-07-15] MEDS: Docusate 100mg cap ORAL SCH ×2 (09:00→21:00)
[2017-07-15] MEDS: Morphine Sulfate 2mg/ml Inj IVP PRN ×3 (09:05→18:22)
--- NOTE | 2017-07-15 13:47 | History and Physical ---
History of Present Illness General Date patient seen: Jul 15, 2017 Time patient seen: 13:47 Reason for Hospitalization: Nausea, Vomiting Present Illness HPI 32yo female with pmh of cyclic vomiting syndrome, cannabis abuse and anxiety who presents with nausea and vomiting. She has been admitted to hospital multiple times for similar symptoms thought to be secondary to cyclic vomiting syndrome. She usually go to the hospital every 2-3 months for the same thing. She was doing well. Last time was here was 3 or 4 months ago. Symptoms started while at the airport and during the flight. She started becoming nauseous and vomiting. She then developed abdominal discomfort. She just got back from [place] (she was there for her sister's wedding) Abd pain 10/10 generalized pain. Unable to keep anything down including diet and PO meds. Denies f/c, d/c, chest pain, SOB, dysuria. DId smoke cannabis in [place]. Allergies: Coded Allergies: PROCHLORPERAZINE (Verified Allergy, Intermediate, hives on left forearm, ) allergic reaction from pt was admitted to ED on 01/05/17 SULFA (SULFONAMIDE ANTIBIOTICS) (Verified Allergy, Unknown, 02/23/11) Medication History Scheduled Albuterol Sulfate* (Proair Hfa*), 1 PUFF INH Q6H, (Reported) Promethazine Hcl (Promethazine Hcl), 25 MG RC Q6HR Scheduled PRN Lorazepam* (Ativan*), 1 MG ORAL Q4HR PRN for Nausea & Vomiting, (Reported) Ondansetron Hcl* (Zofran*), 8 MG ORAL Q4HR PRN for Nausea & Vomiting, (Reported) Ondansetron Odt* (Zofran Odt*), 4 MG ORAL Q6H PRN for Nausea & Vomiting Patient History Healthcare decision maker Resuscitation status Full Code Advanced Directive on File Past Medical/Surgical History Past Medical/Surgical History: (1) Cyclic vomiting syndrome (2) Cannabis abuse (3) Anxiety Family History Family History: Patient reports no known family medical history. Social History Social History: (1) No significant social history Review of Systems Constitutional: Reports: no symptoms Eye: Reports: no symptoms ENT: Reports: no symptoms Respiratory: Reports: no symptoms Cardiovascular: Reports: no symptoms Gastrointestinal: Reports: abdominal pain, nausea, vomiting Genitourinary: Reports: no symptoms Musculoskeletal: Reports: no symptoms Skin: Reports: no symptoms Psychiatric: Reports: no symptoms Neurological: Reports: no symptoms Endocrine: Reports: no symptoms Hematologic/Lymphatic: Reports: no symptoms Physical Exam Physical Exam Narrative General: alert, cooperative, no distress, appears stated age Head: normocephalic, without obvious abnormality, atraumatic Eyes: conjunctivae/corneas clear. PERRL, EOM's intact Throat: lips, mucosa, and tongue normal. MMM Neck: supple, symmetrical, trachea midline, and no JVD Lungs: clear to auscultation bilaterally Heart: regular rate and rhythm, S1, S2 normal, no murmur, click, rub or gallop Abdomen: soft, non-tender, non-distended, bowel sounds normal; no masses or organomegaly Extremities: extremities normal, atraumatic, no cyanosis or edema Pulses: 2+ and symmetric Skin: skin color, texture, turgor normal; no rashes or lesions Neurologic: grossly normal, no focal deficits Last 24 Hour Vital Signs Date Time Temp Pulse Resp B/P Pulse Ox O2 Delivery O2 Flow Rate FiO2 07/15/17 09:35 98.9 07/15/17 08:13 98.9 90 18 130/86 100 Room Air 07/15/17 08:12 98.7 87 17 127/84 100 Room Air 07/15/17 06:34 98.9 90 18 130/86 100 Room Air 07/15/17 04:30 98.9 81 21 122/90 100 Room Air 07/15/17 02:00 98.9 81 21 133/86 100 Room Air 07/15/17 00:46 98.9 07/15/17 00:17 98.9 81 21 143/81 100 Room Air 07/14/17 23:46 Room Air Intake and Output 07/14/17 07/15/17 19:00 07:00 Intake Total 3000 ml Balance 3000 ml Intake Oral 0 ml IV Total 3000 ml Laboratory Tests Test 07/15/17 00:00 07/15/17 00:30 White Blood Count 13.6 K/UL (4.8-10.8) H Red Blood Count 4.73 M/UL (4.20-5.40) Hemoglobin 15.0 G/DL (12.0-16.0) Hematocrit 43.1 % (37.0-47.0) Mean Corpuscular Volume 91 FL (80-99) Mean Corpuscular Hemoglobin 31.7 PG (27.0-31.0) H Mean Corpuscular Hemoglobin Concent 34.7 G/DL (32.0-36.0) Red Cell Distribution Width 11.7 % (11.6-14.8) Platelet Count 265 K/UL (150-450) Mean Platelet Volume 6.9 FL (6.5-10.1) Neutrophils (%) (Auto) 81.3 % (45.0-75.0) H Lymphocytes (%) (Auto) 16.4 % (20.0-45.0) L Monocytes (%) (Auto) 1.7 % (1.0-10.0) Eosinophils (%) (Auto) 0.0 % (0.0-3.0) Basophils (%) (Auto) 0.6 % (0.0-2.0) Sodium Level 141 mEQ/L (135-145) Potassium Level 3.8 mEQ/L (3.4-4.9) Chloride Level 103 mEQ/L (98-107) Carbon Dioxide Level 17 mEQ/L (20-30) L Anion Gap 21 (5-15) H Blood Urea Nitrogen 13 mg/dL (7-23) Creatinine 0.7 mg/dL (0.5-0.9) Estimat Glomerular Filtration Rate > 60 mL/min (>60) Glucose Level 181 mg/dL (74-106) H Calcium Level 10.0 mg/dL (8.6-10.2) Total Bilirubin 0.3 mg/dL (0.0-1.2) Aspartate Amino Transf (AST/SGOT) 19 U/L (5-40) Alanine Aminotransferase (ALT/SGPT) 16 U/L (3-33) Alkaline Phosphatase 63 U/L (35-104) Total Protein 7.9 g/dL (6.6-8.7) Albumin 4.9 g/dL (3.5-5.2) Globulin 3.0 g/dL Albumin/Globulin Ratio 1.6 (1.0-2.7) Lipase 17 U/L (< 60) Urine Color Yellow Urine Appearance Clear Urine pH 5 (4.5-8.0) Urine Specific [place] 1.025 (1.005-1.035) Urine Protein 2+ (NEGATIVE) H Urine Glucose (UA) Negative (NEGATIVE) Urine Ketones 4+ (NEGATIVE) H Urine Occult Blood 1+ (NEGATIVE) H Urine Nitrite Negative (NEGATIVE) Urine Bilirubin Negative (NEGATIVE) Urine Urobilinogen Normal MG/DL (0.0-1.0) Urine Leukocyte Esterase Negative (NEGATIVE) Urine RBC 2-4 /HPF (0 - 2) H Urine WBC 2-4 /HPF (0 - 2) Urine Squamous Epithelial Cells Few /LPF (NONE/OCC) Urine Bacteria Few /HPF (NONE) Urine Mucus Many /LPF (NONE/OCC) H Urine HCG, Qualitative Negative Height (Feet): 5 Height (Inches): 8.00 Weight (Pounds): 135 Medications Current Medications Medications (Trade) Dose Ordered Sig/Shanta Route PRN Reason Start Time Stop Time Status Last Admin Dose Admin Acetaminophen (Tylenol) 650 mg Q4H PRN ORAL Mild Pain (Pain Scale 1-3) 07/15/17 07:45 08/14/17 07:44 Acetaminophen (Tylenol) 650 mg Q4H PRN ORAL fever 07/15/17 07:45 08/14/17 07:44 Acetaminophen (Tylenol) 650 mg Q4H PRN RECTAL Mild Pain (Pain Scale 1-3) 07/15/17 07:45 08/14/17 07:44 Acetaminophen (Tylenol) 650 mg Q4H PRN RECTAL fever 07/15/17 07:45 08/14/17 07:44 Al Hydroxide/Mg Hydroxide (Mylanta II) 30 ml Q6H PRN ORAL dyspepsia 07/15/17 07:45 08/14/17 07:44 Bisacodyl (Dulcolax) 10 mg HSPRN PRN RECTAL Constipation 07/15/17 07:45 08/14/17 07:44 Dextrose STAT PRN IV Hypoglycemia 07/15/17 07:45 08/14/17 07:44 Dextrose/ Electrolytes (D5 0.45%NS W/ KCl 20mEq) 1,000 ml @ 125 mls/hr Q8H IV 07/15/17 08:00 08/14/17 07:59 07/15/17 09:18 Diphenhydramine HCl (Benadryl) 25 mg Q6H PRN ORAL Itching/Pruritis 07/15/17 07:45 08/14/17 07:44 Docusate Sodium (Colace) 100 mg EVERY 12 HOURS ORAL 07/15/17 09:00 08/14/17 08:59 Lorazepam (Ativan) 1 mg Q4H PRN ORAL For Anxiety 07/15/17 07:45 07/22/17 07:44 Magnesium Hydroxide (Mom) 30 ml HSPRN PRN ORAL Constipation 07/15/17 07:45 08/14/17 07:44 Metoclopramide HCl (Reglan) 10 mg Q6H PRN IVP Nausea & Vomiting 07/15/17 07:45 08/14/17 07:44 Morphine Sulfate (Morphine Sulfate) 2 mg Q4H PRN IVP Moderate Pain (Pain Scale 4-6) 07/15/17 07:45 07/22/17 07:44 07/15/17 09:05 Morphine Sulfate (Morphine Sulfate) 4 mg Q4H PRN IVP Severe Pain (Pain Scale 7-10) 07/15/17 07:45 07/22/17 07:44 Ondansetron HCl (Zofran) 4 mg Q6H PRN IVP Nausea & Vomiting 07/15/17 07:45 08/14/17 07:44 07/15/17 09:05 Polyethylene Glycol (Miralax) 17 gm HSPRN PRN ORAL Constipation 07/15/17 07:45 08/14/17 07:44 Zolpidem Tartrate (Ambien) 5 mg HSPRN PRN ORAL Insomnia 07/15/17 07:45 08/14/17 07:44 Assessment/Plan Problem List: (1) Intractable nausea and vomiting ICD Codes: R11.2 - Nausea with vomiting, unspecified SNOMED: 236232207, 708070784 Qualifiers: Qualified Codes: G43.A1 - Cyclical vomiting, intractable (2) Cyclic vomiting syndrome ICD Codes: G43.A0 - Cyclical vomiting, not intractable SNOMED: 70776760 Qualifiers: Qualified Codes: G43.A1 - Cyclical vomiting, intractable (3) Dehydration ICD Codes: E86.0 - Dehydration SNOMED: 05649017 (4) Leukocytosis ICD Codes: D72.829 - Leukocytosis SNOMED: 358906787 (5) Cannabis abuse ICD Codes: F12.10 - Cannabis abuse, uncomplicated SNOMED: 76420515 (6) Anxiety ICD Codes: F41.9 - Anxiety disorder, unspecified SNOMED: 76553100 Status: stable Assessment/Plan Admit inpt Zofran, regplan PRN Morphine PRN CLD and advance diet as tolerated IVFs Replete lytes No indication for antibiotics at this time Trend CBC, BMP Supportive care SCDs for DVT ppx FULL CODE D/w pt, RN regarding mgmt and dispo Drew Schmitz M.D. Jul 15, 2017 13:47
[2017-07-16] VITALS: BP 114/64
[2017-07-16 04:00] VITALS: BP 120/68
[2017-07-16] MEDS: Morphine Sulfate 2mg/ml Inj IVP PRN (05:01)
[2017-07-16 06:21] LABS: BASOPHILS % (AUTO) 0.7 % (0.0-2.0); EOSINOPHILS % (AUTO) 0.3 % (0.0-3.0); MEAN CORPUSCULAR HGB CONC 34.6 G/DL (32.0-36.0); MEAN CORPUSCULAR VOLUME 93 FL (80-99); MEAN PLATELET VOLUME 6.8 FL (6.5-10.1); MONOCYTES % (AUTO) 4.9 % (1.0-10.0); NEUTROPHILS % (AUTO) 59.2 % (45.0-75.0); PLATELET COUNT 222 K/UL (150-450); RED BLOOD COUNT 4.27 M/UL (4.20-5.40); RED CELL DISTRIBUTION WIDTH 11.8 % (11.6-14.8); WHITE BLOOD COUNT 10.7 K/UL (4.8-10.8)
[2017-07-16 06:39] LABS: ALANINE AMINOTRANSFERASE 12 U/L (3-33); ALBUMIN/GLOBULIN RATIO 1.6 (1.0-2.7); ANION GAP 14 (5-15); ASPARTATE AMINO TRANSFERASE 16 U/L (5-40); CALCIUM 9.2 mg/dL (8.6-10.2); CARBON DIOXIDE 22 mEQ/L (20-30); CHLORIDE 105 mEQ/L (98-107); CREATININE 0.6 mg/dL (0.5-0.9); GLOMERULAR FILTRATION RATE > 60 mL/min (>60); HEMOLYSIS 4; POTASSIUM 3.5 mEQ/L (3.4-4.9); SODIUM 141 mEQ/L (135-145); TOTAL PROTEIN 6.7 g/dL (6.6-8.7)
[2017-07-16 08:55] VITALS: BP 119/67
[2017-07-16] MEDS: Docusate 100mg cap ORAL SCH (09:00)
[2017-07-16] MEDS: D5 1/2NS w/KCl 20mEq 1,000 ML IV SCH (10:08)
--- NOTE | 2017-07-16 14:26 | Discharge Summary ---
Discharge Summary Hospital Course Date of Admission Jul 15, 2017 at 05:57 Date of Discharge Jul 16, 2017 at 11:20 Admitting Diagnosis intractable vomiting Reason for Hospitalization: intractable vomiting, inability to tolerate PO intake HPI 32yo female with pmh of cyclic vomiting syndrome, cannabis abuse and anxiety who presents with nausea and vomiting. She has been admitted to hospital multiple times for similar symptoms thought to be secondary to cyclic vomiting syndrome. She usually go to the hospital every 2-3 months for the same thing. She was doing well. Last time was here was 3 or 4 months ago. Symptoms started while at the airport and during the flight. She started becoming nauseous and vomiting. She then developed abdominal discomfort. She just got back from [place] (she was there for her sister's wedding) Abd pain 10/10 generalized pain. Unable to keep anything down including diet and PO meds. Denies f/c, d/c, chest pain, SOB, dysuria. DId smoke cannabis in [place]. Hospital Course Pt was admitted and treated conservatively with IVFs, IV nausea and pain medications. Her diet was slowly advanced as tolerated. Once tolerating PO intake and nausea/pain controlled, she was discharged. Her symptoms are likely 2 /2 cyclic vomiting syndrome in setting of recurrent cannabis abuse. Discharge Medications Continued Medications: Albuterol Sulfate* (Proair Hfa*) 8.5 Gm Hfa.aer.ad 1 PUFF INH Q6H, #8.5 GM 0 Refills Lorazepam* (Ativan*) 1 Mg Tablet 1 MG ORAL Q4HR PRN for Nausea & Vomiting, TAB Ondansetron Hcl* (Zofran*) 8 Mg Tablet 8 MG ORAL Q4HR PRN for Nausea & Vomiting, #4 TAB 0 Refills Ondansetron Odt* (Zofran Odt*) 4 Mg Tab.rapdis 4 MG ORAL Q6H PRN for Nausea & Vomiting, #30 TAB 0 Refills Promethazine Hcl (Promethazine Hcl) 25 Mg Supp.rect 25 MG RC Q6HR, #15 SUPP Discharge Condition Upon Discharge: stable Discharge Disposition Patient was discharged to Home (01) Discharge Diagnoses: (1) Intractable nausea and vomiting (2) Cyclic vomiting syndrome (3) Cannabis abuse (4) Dehydration (5) Leukocytosis Drew Schmitz M.D. Jul 16, 2017 14:26
== END 2017-07-16 11:20 | disposition home or self-care (01) | DRG 103 ==
LOC: EDBD 23:52 → EMR 07-15 02:01 → 4W 07-15 05:57 → EDBEDREQ 07-15 06:26
DX: G43.A0 Cyclical vomiting, in migraine, not intractable (principal); E86.0 Dehydration; F12.10 Cannabis abuse, uncomplicated; F41.9 Anxiety disorder, unspecified; Z88.2 Allergy status to sulfonamides; Z88.8 Allergy status to other drugs, medicaments and biological substances
CPT/HCPCS: 36415; 80053; 81003; 81025; 83690; 85025; 96360; J2405; J2765

== ENCOUNTER 2017-08-15 07:00 | Emergency (ER) | payer OTHER, MEDICAID ==
[~2017-08-15] VITALS: Ht 172.7 cm; Wt 59.9 kg
[~2017-08-15 07:00] MED LIST changes: +PROMETHAZINE HC25 MG RC
[2017-08-15 07:20] VITALS: BP 108/56
--- NOTE | 2017-08-15 07:20 | Emergency Room Report ---
History of Present Illness General Chief Complaint: Abdominal Pain Source: Patient Present Illness HPI Patient present with complaints of suprapubic lower abdominal pain in the midline area she feels some pressure in the back as well She reports having a symptom off and on for the past 3-4 weeks Patient saw her forest ecologist on Saturday And states that she was told the forest ecologist felt was more GI related Denies any dysuria frequency Denies any vomiting or diarrhea Pain is 10 out of 10 Allergies: Coded Allergies: PROCHLORPERAZINE (Verified Allergy, Intermediate, hives on left forearm, ) allergic reaction from pt was admitted to ED on 01/05/17 SULFA (SULFONAMIDE ANTIBIOTICS) (Verified Allergy, Unknown, 02/23/11) Patient History Past Medical History: see triage record Pertinent Family History: none Last Menstrual Period: 06/15/17 Now: No : 0 Para: 0 Reviewed Nursing Documentation: PMH: Agreed, PSxH: Agreed Nursing Documentation-PMH Hx Hypertension: No Hx Pacemaker: No Hx Asthma: Yes Hx COPD: No Hx Diabetes: No Hx Cancer: No Hx Gastrointestinal Problems: Yes - Cyclic Vomiting Syndrome Hx Dialysis: No Hx Neurological Problems: No Hx Cerebrovascular Accident: No Hx Transient Ischemic Attacks: No Hx Dementia: No Hx Alzheimer's Disease: No Hx Parkinson's Disease: No Hx Meningitis: No Hx Encephalitis: No Hx Seizures: No Hx Epilepsy: No Hx Multiple Sclerosis: No Hx Cerebral Palsy: No Hx Amyotrophic Lat Sclerosis: No Hx Guillian-[place] Syndrome: No Hx Paralysis: No Hx Peripheral Neuropathy: No Hx Spinal Cord Injury: No Hx Head Trauma: No Hx Traumatic Brain Injury: No Hx Memory Loss: No Hx Concentration Difficulty: No Hx Speech Problem: No Hx Tremors: No Hx Vertigo: No Hx Dizziness: No Hx Syncope: No Hx Headaches: No Hx Aphasia: No Hx Dysphasia: No Hx Numbness: No Hx Weakness: No Hx Fatigue: No Hx Neurologic Surgery: No Hx Brain Shunt: No Review of Systems All Other Systems: negative except mentioned in HPI Physical Exam Vital Signs Date Time Temp Pulse Resp B/P (MAP) Pulse Ox O2 Delivery O2 Flow Rate FiO2 08/15/17 07:05 98.2 81 24 157/92 97 Room Air Sp02 EP Interpretation: reviewed, normal General Appearance: mild distress - Tearful appears uncomfortable Head: normocephalic, atraumatic Eyes: bilateral eye PERRL, bilateral eye EOMI ENT: normal pharynx, no angioedema Neck: supple, thyroid normal Respiratory: lungs clear Cardiovascular #1: regular rate, rhythm, no edema Gastrointestinal: soft, no mass Musculoskeletal: normal inspection Neurologic: alert, oriented x3, responsive Skin: normal color, no rash Lymphatic: no adenopathy Medical Decision Making Diagnostic Impression: Primary Impression: Ovarian cyst Additional Impression: Abdominal pain ER Course With the patient's history and examination, multiple differentials considered, including but not limited to , ectopic , ovarian torsion, gastritis, cholecystitis, pancreatitis, appendicitis Patient's ultrasound does reveal a small ovarian cyst Patient has done well throughout her stay Bowel sounds are appropriate I do not suspect any obvious bowel obstruction And the patient stable for close outpatient followup Labs Test 08/15/17 07:50 08/15/17 08:40 Urine Color Pale yellow Urine Appearance Slightly cloudy Urine pH 6 (4.5-8.0) Urine Specific [place] 1.020 (1.005-1.035) Urine Protein Negative (NEGATIVE) Urine Glucose (UA) Negative (NEGATIVE) Urine Ketones Negative (NEGATIVE) Urine Occult Blood 1+ (NEGATIVE) Urine Nitrite Negative (NEGATIVE) Urine Bilirubin Negative (NEGATIVE) Urine Urobilinogen Normal MG/DL (0.0-1.0) Urine Leukocyte Esterase Negative (NEGATIVE) Urine RBC 0-2 /HPF (0 - 2) Urine WBC 0-2 /HPF (0 - 2) Urine Squamous Epithelial Cells Few /LPF (NONE/OCC) Urine Bacteria Occasional /HPF (NONE) Urine HCG, Qualitative Negative White Blood Count 9.8 K/UL (4.8-10.8) Red Blood Count 4.47 M/UL (4.20-5.40) Hemoglobin 13.8 G/DL (12.0-16.0) Hematocrit 41.4 % (37.0-47.0) Mean Corpuscular Volume 93 FL (80-99) Mean Corpuscular Hemoglobin 30.9 PG (27.0-31.0) Mean Corpuscular Hemoglobin Concent 33.4 G/DL (32.0-36.0) Red Cell Distribution Width 11.7 % (11.6-14.8) Platelet Count 198 K/UL (150-450) Mean Platelet Volume 6.6 FL (6.5-10.1) Neutrophils (%) (Auto) 64.3 % (45.0-75.0) Lymphocytes (%) (Auto) 29.0 % (20.0-45.0) Monocytes (%) (Auto) 5.1 % (1.0-10.0) Eosinophils (%) (Auto) 0.8 % (0.0-3.0) Basophils (%) (Auto) 0.9 % (0.0-2.0) Sodium Level 139 mEQ/L (135-145) Potassium Level 4.1 mEQ/L (3.4-4.9) Chloride Level 104 mEQ/L (98-107) Carbon Dioxide Level 23 mEQ/L (20-30) Anion Gap 12 (5-15) Blood Urea Nitrogen 11 mg/dL (7-23) Creatinine 0.7 mg/dL (0.5-0.9) Estimat Glomerular Filtration Rate > 60 mL/min (>60) Glucose Level 101 mg/dL (74-106) Calcium Level 9.2 mg/dL (8.6-10.2) CT/MRI/US Diagnostic Results CT/MRI/US Diagnostic Results : Impression pelvic ultrasound:Impression: Possible hemorrhagic left ovarian cyst, questionable. Followup recommended in 6 weeks. Dominant left ovarian cyst measuring 3.4 cm. Last Vital Signs Date Time Temp Pulse Resp B/P (MAP) Pulse Ox O2 Delivery O2 Flow Rate FiO2 08/15/17 07:05 98.2 81 24 157/92 97 Room Air Status: improved Disposition: HOME, SELF-CARE Condition: Improved Additional Instructions: Patient is provided with the discharge instructions notified to follow up with primary doctor in the next 2-3 days otherwise return to the er with any worsening symptoms. Please note that this report is being documented using [employer] technology. This can lead to erroneous entry secondary to incorrect interpretation by the dictating instrument. RADHA COLINDRES D.O. Aug 15, 2017 07:20
[2017-08-15] MEDS ORDERED: LORazepam Inj 2mg/ml 1ml IV ONE (07:30)
[2017-08-15] MEDS ORDERED: DiphenhydrAMINE 50mg/ml Inj IVP ONE (07:30)
[2017-08-15] MEDS ORDERED: Morphine Sulfate 4mg/ml Inj IVP ONE (07:30)
[2017-08-15 08:11] LABS: BASOPHILS % (AUTO) 0.9 % (0.0-2.0); EOSINOPHILS % (AUTO) 0.8 % (0.0-3.0); MEAN CORPUSCULAR HEMOGLOBIN 30.9 PG (27.0-31.0); MEAN CORPUSCULAR HGB CONC 33.4 G/DL (32.0-36.0); MEAN CORPUSCULAR VOLUME 93 FL (80-99); MEAN PLATELET VOLUME 6.6 FL (6.5-10.1); MONOCYTES % (AUTO) 5.1 % (1.0-10.0); NEUTROPHILS % (AUTO) 64.3 % (45.0-75.0); PLATELET COUNT 198 K/UL (150-450); RED BLOOD COUNT 4.47 M/UL (4.20-5.40); RED CELL DISTRIBUTION WIDTH 11.7 % (11.6-14.8); WHITE BLOOD COUNT 9.8 K/UL (4.8-10.8)
[2017-08-15 08:12] LABS: APPEARANCE,URINE SLIGHTLY CLOUDY; KETONES,URINE NEGATIVE (NEGATIVE); LEUKOCYTE ESTERASE ,URINE NEGATIVE (NEGATIVE); NITRITE,URINE NEGATIVE (NEGATIVE); PH,URINE 6 (4.5-8.0); PROTEIN,URINE NEGATIVE (NEGATIVE); UROBILINOGEN,URINE NORMAL MG/DL (0.0-1.0)
[2017-08-15 08:18] LABS: ANION GAP 12 (5-15); CALCIUM 9.2 mg/dL (8.6-10.2); CARBON DIOXIDE 23 mEQ/L (20-30); CHLORIDE 104 mEQ/L (98-107); CREATININE 0.7 mg/dL (0.5-0.9); GLOMERULAR FILTRATION RATE > 60 mL/min (>60); HEMOLYSIS 10; POTASSIUM 4.1 mEQ/L (3.4-4.9); SODIUM 139 mEQ/L (135-145)
[2017-08-15 08:19] LABS: BACTERIA,URINE OCCASIONAL /HPF; RBC,URINE 0-2 /HPF (0 - 2); SQUAMOUS EPITHELIAL CELL,UR FEW /LPF (NONE/OCC); WBC,URINE 0-2 /HPF (0 - 2)
[2017-08-15 08:30] VITALS: BP 127/66
[2017-08-15 09:30] VITALS: BP 115/52
[2017-08-15 09:58] VITALS: BP 139/68
[2017-08-15 10:35] VITALS: BP 139/68
--- NOTE | 2017-08-15 14:20 | Diagnostic Imaging Report ---
Indication:Lower abdominal and pelvic pain Technique: Grayscale and duplex Doppler imaging of the pelvis performed utilizing a transabdominal scan and endovaginal scan. Comparison: 12/07/13 Findings: The ovaries appear normal with Doppler evidence of blood flow. There is a trace amount of free fluid present. There is a cyst in the left ovary demonstrated measuring approximately 3.4 cm. There is a daughter cyst noted eccentrically within this larger cyst. There may be a hemorrhagic cyst within the left ovary as well given a non-measured vague area of hypoechogenicity no more than 2 cm in size, if real. Suggest followup. The uterus appears normal with normal-appearing uniformly echogenic endometrial stripe measuring between 5 and 6 mm. Impression: Possible hemorrhagic left ovarian cyst, questionable. Followup recommended in 6 weeks. Dominant left ovarian cyst measuring 3.4 cm.
== END 2017-08-15 10:35 | disposition home or self-care (01) ==
LOC: EMR 07:22
DX: R10.30 Lower abdominal pain, unspecified (principal); N83.202 Unspecified ovarian cyst, left side; Z88.2 Allergy status to sulfonamides; J45.909 Unspecified asthma, uncomplicated
CPT/HCPCS: 36415; 76830; 76856; 80048; 81003; 81025; 85025; 96374; 96375; 99284; J1200; J2270

== ENCOUNTER 2017-10-04 11:15 | Emergency (ER) | payer OTHER, MEDICAID ==
[~2017-10-04] VITALS: Ht 172.7 cm; Wt 59.0 kg
[2017-10-04 11:34] VITALS: BP 146/91
[2017-10-04] MEDS ORDERED: HYDROmorphone 1mg/ml Carpuject IM ONE (11:45)
[2017-10-04] MEDS ORDERED: LORazepam Inj 2mg/ml 1ml IV ONE (11:45)
[2017-10-04] MEDS ORDERED: DiphenhydrAMINE 50mg/ml Inj IVP ONE (11:45)
[2017-10-04 12:06] LABS: APPEARANCE,URINE CLOUDY; BILIRUBIN, URINE NEGATIVE (NEGATIVE); COLOR,URINE PALE YELLOW; GLUCOSE, URINE (UA) NEGATIVE (NEGATIVE); KETONES,URINE NEGATIVE (NEGATIVE); LEUKOCYTE ESTERASE ,URINE NEGATIVE (NEGATIVE); NITRITE,URINE NEGATIVE (NEGATIVE); PH,URINE 5 (4.5-8.0); PROTEIN,URINE 2+ (NEGATIVE); UROBILINOGEN,URINE NORMAL MG/DL (0.0-1.0)
[2017-10-04 12:13] LABS: BASOPHILS % (AUTO) 0.6 % (0.0-2.0); EOSINOPHILS % (AUTO) 0.1 % (0.0-3.0); HEMATOCRIT 44.9 % (37.0-47.0); HEMOGLOBIN 14.8 G/DL (12.0-16.0); LYMPHOCYTES % (AUTO) 17.4 % (20.0-45.0); MEAN CORPUSCULAR VOLUME 92 FL (80-99); MONOCYTES % (AUTO) 4.1 % (1.0-10.0); NEUTROPHILS % (AUTO) 77.9 % (45.0-75.0); PLATELET COUNT 239 K/UL (150-450); RED CELL DISTRIBUTION WIDTH 11.2 % (11.6-14.8); WHITE BLOOD COUNT 13.9 K/UL (4.8-10.8)
[2017-10-04 13:04] LABS: ALANINE AMINOTRANSFERASE 23 U/L (12-78); ALBUMIN 4.7 G/DL (3.4-5.0); ALBUMIN/GLOBULIN RATIO 1.4 (1.0-2.7); ALKALINE PHOSPHATASE 53 U/L (46-116); ANION GAP 12 mmol/L (5-15); ASPARTATE AMINO TRANSFERASE 19 U/L (15-37); BILIRUBIN,TOTAL 0.4 MG/DL (0.2-1.0); BLOOD UREA NITROGEN 11 mg/dL (7-18); CALCIUM 9.6 MG/DL (8.5-10.1); CARBON DIOXIDE 22 MMOL/L (21-32); CHLORIDE 104 MMOL/L (98-107); CREATININE 0.8 MG/DL (0.55-1.30); POTASSIUM 3.5 MMOL/L (3.5-5.1); SODIUM 138 MMOL/L (136-145)
[2017-10-04] MEDS ORDERED: ZOFRAN ODT4 MG ORAL (13:26)
[2017-10-04 13:30] VITALS: BP 140/78
--- NOTE | 2017-10-04 13:45 | Emergency Room Report ---
History of Present Illness General Chief Complaint: Vomiting Source: Patient Present Illness HPI Patient has history of cyclic vomiting syndrome. Patient has been to emergency department multiple times in the past for cyclic vomiting syndrome. She states that she develop acute onset epigastric discomfort which became worse over last couple days and now she is not able to tolerate any oral fluids. She denies any fever. Denies any chest pain. Other complaints are noted. Symptoms noted to be severe.No other modifying factors. No other associated signs and symptoms. No other complaints were noted. Allergies: Coded Allergies: PROCHLORPERAZINE (Verified Allergy, Intermediate, hives on left forearm, ) allergic reaction from pt was admitted to ED on 01/05/17 SULFA (SULFONAMIDE ANTIBIOTICS) (Verified Allergy, Unknown, 02/23/11) Patient History Past Surgical History: none Pertinent Family History: none Social History: Denies: smoking, alcohol use, drug use Last Menstrual Period: month ago Reviewed Nursing Documentation: PMH: Agreed, PSxH: Agreed Nursing Documentation-PMH Past Medical History: No History, Except For Hx Hypertension: No Hx Pacemaker: No Hx Asthma: Yes Hx COPD: No Hx Diabetes: No Hx Cancer: No Hx Gastrointestinal Problems: Yes Hx Dialysis: No History Of Psychiatric Problem: No Hx Neurological Problems: No Hx Cerebrovascular Accident: No Hx Transient Ischemic Attacks: No Hx Dementia: No Hx Alzheimer's Disease: No Hx Parkinson's Disease: No Hx Meningitis: No Hx Encephalitis: No Hx Seizures: No Hx Epilepsy: No Hx Multiple Sclerosis: No Hx Cerebral Palsy: No Hx Amyotrophic Lat Sclerosis: No Hx Guillian-[place] Syndrome: No Hx Paralysis: No Hx Peripheral Neuropathy: No Hx Spinal Cord Injury: No Hx Head Trauma: No Hx Traumatic Brain Injury: No Hx Memory Loss: No Hx Concentration Difficulty: No Hx Speech Problem: No Hx Tremors: No Hx Vertigo: No Hx Dizziness: No Hx Syncope: No Hx Headaches: No Hx Aphasia: No Hx Dysphasia: No Hx Numbness: No Hx Weakness: No Hx Fatigue: No Hx Neurologic Surgery: No Hx Brain Shunt: No Review of Systems All Other Systems: negative except mentioned in HPI Physical Exam Vital Signs Date Time Temp Pulse Resp B/P (MAP) Pulse Ox O2 Delivery O2 Flow Rate FiO2 10/04/17 11:24 97.2 112 18 146/91 95 Room Air Sp02 EP Interpretation: reviewed, normal General Appearance: alert, moderate distress Head: normocephalic, atraumatic Eyes: bilateral eye normal inspection ENT: normal ENT inspection, hearing grossly normal, normal voice Neck: normal inspection, full range of motion, supple, no bony tend Respiratory: normal inspection, lungs clear, normal breath sounds, no respiratory distress, no retraction, no wheezing Cardiovascular #1: regular rate, rhythm, no edema Gastrointestinal: normal inspection, normal bowel sounds, soft, no guarding, no hernia, tenderness - epigastrium Genitourinary: no CVA tenderness Musculoskeletal: normal inspection, back normal, normal range of motion Neurologic: normal inspection, alert, responsive, speech normal Psychiatric: normal inspection, depressed affect, anxious Skin: normal inspection, normal color, no rash Medical Decision Making Diagnostic Impression: Primary Impression: Vomiting Additional Impression: Cyclic vomiting syndrome ER Course Patient presents to the emergency department today complaining of abdominal pain. Differential considerations include acute pancreatitis, cholecystitis, gastritis, hepatitis, appendicitis just to name a few. Given the severity of the patient's presentation I felt this is a highly complex patient. This patient required extensive workup. Patient laboratory workup was negative. Patient was given fluids and pain medications and has significant improvement in symptoms.Given the patient feels much better, and he had a negative workup, I feel the patient can be discharged home.Patient is advised to follow up with primary doctor in 2-3 days and return the emergency room for any worsening symptoms and as needed. Labs Test 10/04/17 11:40 10/04/17 11:45 Urine Color Pale yellow Urine Appearance Cloudy Urine pH 5 (4.5-8.0) Urine Specific [place] 1.025 (1.005-1.035) Urine Protein 2+ (NEGATIVE) Urine Glucose (UA) Negative (NEGATIVE) Urine Ketones Negative (NEGATIVE) Urine Occult Blood 3+ (NEGATIVE) Urine Nitrite Negative (NEGATIVE) Urine Bilirubin Negative (NEGATIVE) Urine Urobilinogen Normal MG/DL (0.0-1.0) Urine Leukocyte Esterase Negative (NEGATIVE) Urine RBC 2-4 /HPF (0 - 2) Urine WBC 0-2 /HPF (0 - 2) Urine Squamous Epithelial Cells Moderate /LPF (NONE/OCC) Urine Bacteria Few /HPF (NONE) Urine HCG, Qualitative Negative White Blood Count 13.9 K/UL (4.8-10.8) Red Blood Count 4.90 M/UL (4.20-5.40) Hemoglobin 14.8 G/DL (12.0-16.0) Hematocrit 44.9 % (37.0-47.0) Mean Corpuscular Volume 92 FL (80-99) Mean Corpuscular Hemoglobin 30.2 PG (27.0-31.0) Mean Corpuscular Hemoglobin Concent 33.0 G/DL (32.0-36.0) Red Cell Distribution Width 11.2 % (11.6-14.8) Platelet Count 239 K/UL (150-450) Mean Platelet Volume 5.7 FL (6.5-10.1) Neutrophils (%) (Auto) 77.9 % (45.0-75.0) Lymphocytes (%) (Auto) 17.4 % (20.0-45.0) Monocytes (%) (Auto) 4.1 % (1.0-10.0) Eosinophils (%) (Auto) 0.1 % (0.0-3.0) Basophils (%) (Auto) 0.6 % (0.0-2.0) Sodium Level 138 MMOL/L (136-145) Potassium Level 3.5 MMOL/L (3.5-5.1) Chloride Level 104 MMOL/L (98-107) Carbon Dioxide Level 22 MMOL/L (21-32) Anion Gap 12 mmol/L (5-15) Blood Urea Nitrogen 11 mg/dL (7-18) Creatinine 0.8 MG/DL (0.55-1.30) Estimat Glomerular Filtration Rate > 60 mL/min (>60) Glucose Level 172 MG/DL (74-106) Calcium Level 9.6 MG/DL (8.5-10.1) Total Bilirubin 0.4 MG/DL (0.2-1.0) Aspartate Amino Transf (AST/SGOT) 19 U/L (15-37) Alanine Aminotransferase (ALT/SGPT) 23 U/L (12-78) Alkaline Phosphatase 53 U/L (46-116) Total Protein 8.0 G/DL (6.4-8.2) Albumin 4.7 G/DL (3.4-5.0) Globulin 3.3 g/dL Albumin/Globulin Ratio 1.4 (1.0-2.7) Lipase 98 U/L (73-393) Last Vital Signs Date Time Temp Pulse Resp B/P (MAP) Pulse Ox O2 Delivery O2 Flow Rate FiO2 10/04/17 11:34 97.2 18 146/91 95 Room Air 10/04/17 11:24 112 Status: improved Disposition: HOME, SELF-CARE Condition: Stable Scripts Ondansetron Odt* (ZOFRAN ODT*) 4 Mg Tab.rapdis 4 MG ORAL Q6H Y for Nausea & Vomiting, #30 TAB 0 Refills Prov: PERRI MEDEIROS M.D. 10/04/17 Referrals: [facility],REFERRING (PCP) Patient Instructions: Nausea and Vomiting, Adult PERRI MEDEIROS M.D. Oct 04, 2017 13:45
[2017-10-04 15:30] VITALS: BP 122/69
== END 2017-10-04 15:30 | disposition home or self-care (01) ==
LOC: EMR 12:10
DX: G43.A0 Cyclical vomiting, in migraine, not intractable (principal); J45.909 Unspecified asthma, uncomplicated; Z88.2 Allergy status to sulfonamides; Z88.8 Allergy status to other drugs, medicaments and biological substances
CPT/HCPCS: 36415; 80053; 81003; 81025; 83690; 85025; 96361; 96372; 96374; 96375; 99283; J1170; J1200; J2405

== ENCOUNTER 2017-10-04 19:06 | Inpatient (IN) | payer OTHER, MEDICAID ==
[~2017-10-04] VITALS: Ht 172.7 cm; Wt 59.0 kg
[2017-10-04] MEDS ORDERED: Morphine Sulfate 4mg/ml Inj IVP ONE ×2 (19:45→22:15)
[2017-10-04] MEDS ORDERED: LORazepam Inj 2mg/ml 1ml IV ONE (19:45)
[2017-10-04 20:00] VITALS: BP 142/85
[2017-10-04 20:15] LABS: BASOPHILS % (AUTO) 0.7 % (0.0-2.0); EOSINOPHILS % (AUTO) 0.1 % (0.0-3.0); LYMPHOCYTES % (AUTO) 18.3 % (20.0-45.0); MEAN CORPUSCULAR HEMOGLOBIN 31.2 PG (27.0-31.0); MEAN CORPUSCULAR HGB CONC 34.3 G/DL (32.0-36.0); MEAN CORPUSCULAR VOLUME 91 FL (80-99); MEAN PLATELET VOLUME 6.5 FL (6.5-10.1); NEUTROPHILS % (AUTO) 75.9 % (45.0-75.0); PLATELET COUNT 246 K/UL (150-450); RED BLOOD COUNT 4.21 M/UL (4.20-5.40); RED CELL DISTRIBUTION WIDTH 11.1 % (11.6-14.8)
[2017-10-04 20:29] LABS: ALANINE AMINOTRANSFERASE 24 U/L (12-78); ALBUMIN/GLOBULIN RATIO 1.5 (1.0-2.7); ANION GAP 16 mmol/L (5-15); ASPARTATE AMINO TRANSFERASE 18 U/L (15-37); CALCIUM 9.7 MG/DL (8.5-10.1); CARBON DIOXIDE 21 MMOL/L (21-32); CHLORIDE 105 MMOL/L (98-107); CREATININE 0.8 MG/DL (0.55-1.30); GLOMERULAR FILTRATION RATE > 60 mL/min (>60); LIPASE 95 U/L (73-393); POTASSIUM 3.3 MMOL/L (3.5-5.1); SODIUM 141 MMOL/L (136-145); TOTAL PROTEIN 7.4 G/DL (6.4-8.2)
[2017-10-04 21:15] VITALS: BP 126/78
[2017-10-04 22:20] VITALS: BP 122/76
--- NOTE | 2017-10-04 23:07 | Emergency Room Report ---
History of Present Illness General Chief Complaint: Nausea Source: Patient Present Illness HPI The patient was seen earlier today with cyclic vomiting. Patient received a Reglan with some improvement. She left and went to work. At work she started vomiting again. 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 She has epigastric pain that's severe 10/10, burning and radiates into her chest. She also feels short of breath. She's also anxious. No blood in vomitus or melena. She has had to be admitted in the past. She states she believes that treatment with zofran, analgesia and ativan might allow her to go home. Not (preg - earlier). No diarrhea. No fevers, cough, sore throat, joint pain. H/O asthma, no wheezing. 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 Nursing Documentation: PMH: Agreed, PSxH: Agreed Nursing Documentation-PMH Past Medical History: No History, Except For Hx Hypertension: No Hx Pacemaker: No Hx Asthma: Yes Hx COPD: No Hx Diabetes: No Hx Cancer: No Hx Gastrointestinal Problems: Yes Hx Dialysis: No Hx Neurological Problems: No Hx Cerebrovascular Accident: No Hx Transient Ischemic Attacks: No Hx Dementia: No Hx Alzheimer's Disease: No Hx Parkinson's Disease: No Hx Meningitis: No Hx Encephalitis: No Hx Seizures: No Hx Epilepsy: No Hx Multiple Sclerosis: No Hx Cerebral Palsy: No Hx Amyotrophic Lat Sclerosis: No Hx Guillian-[place] Syndrome: No Hx Paralysis: No Hx Peripheral Neuropathy: No Hx Spinal Cord Injury: No Hx Head Trauma: No Hx Traumatic Brain Injury: No Hx Memory Loss: No Hx Concentration Difficulty: No Hx Speech Problem: No Hx Tremors: No Hx Vertigo: No Hx Dizziness: No Hx Syncope: No Hx Headaches: No Hx Aphasia: No Hx Dysphasia: No Hx Numbness: No Hx Weakness: No Hx Fatigue: No Hx Neurologic Surgery: No Hx Brain Shunt: No Review of Systems All Other Systems: negative except mentioned in HPI Physical Exam Vital Signs Date Time Temp Pulse Resp B/P (MAP) Pulse Ox O2 Delivery O2 Flow Rate FiO2 10/04/17 19:07 97.5 108 18 158/88 100 Room Air Sp02 EP Interpretation: reviewed, normal General Appearance: GCS 15, non-toxic, mild distress Head: normocephalic Eyes: bilateral eye normal inspection, bilateral eye PERRL ENT: moist mucus membranes Neck: supple Respiratory: lungs clear, normal breath sounds Cardiovascular #1: regular rate, rhythm Cardiovascular #2: 2+ radial (R) Gastrointestinal: normal inspection, no mass, non-distended, no guarding, no rebound, tenderness - epigastric, decreased bowel sounds Musculoskeletal: back normal, gait/station normal, normal range of motion Neurologic: alert, oriented x3, grossly normal Psychiatric: anxious Skin: normal inspection, warm/dry Medical Decision Making Diagnostic Impression: Primary Impression: Intractable nausea and vomiting Qualified Codes: G43.A1 - Cyclical vomiting, intractable Additional Impressions: Hypokalemia Abdominal pain Qualified Codes: R10.13 - Epigastric pain Anxiety ER Course The patient returns with intractable vomiting and epigastric pain. Differential includes gastritis, GERD, and cyclic vomiting, pancreatitis, electrolyte abnormality amongst others. She is in moderate distress at this time and he needs reevaluation with electrolytes appear to be treated with IV hydration, Zofran, morphine and Ativan. The patient was improved but still had return of vomiting and epigastric pain. Pepcid was given along with a dose of Zofran and morphine. Because of the lack of bowel movements to the patient is admitted to the hospital medical floor. The patient sees Dr. Can who is covered by Dr. Lopez. Discussed with Dr. Cotto who accepts patient. She was still vomiting after second zofran and morphine. Reglan and benadryl ordered. Some improved. Unable to tolerate PO. Labs Test 10/04/17 20:00 White Blood Count 14.0 K/UL (4.8-10.8) Red Blood Count 4.21 M/UL (4.20-5.40) Hemoglobin 13.2 G/DL (12.0-16.0) Hematocrit 38.3 % (37.0-47.0) Mean Corpuscular Volume 91 FL (80-99) Mean Corpuscular Hemoglobin 31.2 PG (27.0-31.0) Mean Corpuscular Hemoglobin Concent 34.3 G/DL (32.0-36.0) Red Cell Distribution Width 11.1 % (11.6-14.8) Platelet Count 246 K/UL (150-450) Mean Platelet Volume 6.5 FL (6.5-10.1) Neutrophils (%) (Auto) 75.9 % (45.0-75.0) Lymphocytes (%) (Auto) 18.3 % (20.0-45.0) Monocytes (%) (Auto) 5.0 % (1.0-10.0) Eosinophils (%) (Auto) 0.1 % (0.0-3.0) Basophils (%) (Auto) 0.7 % (0.0-2.0) Sodium Level 141 MMOL/L (136-145) Potassium Level 3.3 MMOL/L (3.5-5.1) Chloride Level 105 MMOL/L (98-107) Carbon Dioxide Level 21 MMOL/L (21-32) Anion Gap 16 mmol/L (5-15) Blood Urea Nitrogen 8 mg/dL (7-18) Creatinine 0.8 MG/DL (0.55-1.30) Estimat Glomerular Filtration Rate > 60 mL/min (>60) Glucose Level 123 MG/DL (74-106) Calcium Level 9.7 MG/DL (8.5-10.1) Total Bilirubin 0.4 MG/DL (0.2-1.0) Aspartate Amino Transf (AST/SGOT) 18 U/L (15-37) Alanine Aminotransferase (ALT/SGPT) 24 U/L (12-78) Alkaline Phosphatase 48 U/L (46-116) Total Protein 7.4 G/DL (6.4-8.2) Albumin 4.4 G/DL (3.4-5.0) Globulin 3.0 g/dL Albumin/Globulin Ratio 1.5 (1.0-2.7) Lipase 95 U/L (73-393) Earlier UA neg with neg preg. + THC. K earlier was normal Rhythm Strip Diag. Results EP Interpretation: yes Rhythm: no PVC's, no ectopy, other - ST Last Vital Signs Date Time Temp Pulse Resp B/P (MAP) Pulse Ox O2 Delivery O2 Flow Rate FiO2 10/04/17 23:44 97.6 11/3/17 23:15 82 14 128/72 100 Room Air Status: improved Disposition: ADMITTED INPATIENT Condition: Serious Referrals: DEENA MCDOWELL (PCP) Maxi Duffy M.D. Oct 04, 2017 23:07
[2017-10-04 23:15] VITALS: BP 128/72
[2017-10-05] VITALS (7 sets, daily range): BP systolic 115–171; BP diastolic 56–102
[2017-10-05] MEDS ORDERED: Metoclopramide 10mg/2ml Inj IVP STA (00:08)
[2017-10-05] MEDS ORDERED: DiphenhydrAMINE 50mg/ml Inj IVP ONE (00:15)
[2017-10-05] MEDS: Metoclopramide 10mg/2ml Inj IVP PRN ×2 (03:05→11:08)
[2017-10-05] MEDS: D5 1/2NS w/KCl 20mEq 1,000 ML IV SCH ×3 (03:11→19:11)
[2017-10-05] MEDS: Hydromorphone 0.5mg/0.5ml inj IVP PRN ×3 (03:11→11:09)
[2017-10-05] MEDS: LORazepam Inj 2mg/ml 1ml IV PRN ×2 (05:45→13:55)
[2017-10-05 07:45] LABS: ANION GAP 12 mmol/L (5-15); CARBON DIOXIDE 20 MMOL/L (21-32); CHLORIDE 103 MMOL/L (98-107); CREATININE 0.7 MG/DL (0.55-1.30); GLOMERULAR FILTRATION RATE > 60 mL/min (>60); POTASSIUM 3.5 MMOL/L (3.5-5.1); SODIUM 135 MMOL/L (136-145)
[2017-10-05 07:50] LABS: BASOPHILS % (AUTO) 0.5 % (0.0-2.0); LYMPHOCYTES % (AUTO) 13.4 % (20.0-45.0); MEAN CORPUSCULAR HEMOGLOBIN 30.8 PG (27.0-31.0); MEAN CORPUSCULAR VOLUME 90 FL (80-99); MEAN PLATELET VOLUME 6.5 FL (6.5-10.1); MONOCYTES % (AUTO) 3.4 % (1.0-10.0); NEUTROPHILS % (AUTO) 82.8 % (45.0-75.0); PLATELET COUNT 219 K/UL (150-450); RED BLOOD COUNT 4.33 M/UL (4.20-5.40); RED CELL DISTRIBUTION WIDTH 11.2 % (11.6-14.8); WHITE BLOOD COUNT 14.3 K/UL (4.8-10.8)
--- NOTE | 2017-10-05 13:45 | History and Physical ---
History of Present Illness General Date patient seen: Oct 05, 2017 Reason for Hospitalization: Nausea Present Illness HPI 32yo female with pmh of cyclic vomiting syndrome, cannabis abuse and anxiety who presents with nausea and vomiting. She has been admitted to hospital multiple times for similar symptoms thought to be secondary to cyclic vomiting syndrome. Pt was discharged earlier in the day from the ED however returned with worsening symptom. She reports usually going to the hospital every 2-3 months for the same thing. Abd pain 10/10 generalized pain. Unable to keep anything down including diet and PO meds. Denies f/c, d/c, chest pain, SOB, dysuria. Did smoke cannabis. Allergies: Coded Allergies: PROCHLORPERAZINE (Verified Allergy, Intermediate, hives on left forearm, ) allergic reaction from pt was admitted to ED on 01/05/17 SULFA (SULFONAMIDE ANTIBIOTICS) (Verified Allergy, Unknown, 02/23/11) Medication History Scheduled Albuterol Sulfate* (Proair Hfa*), 1 PUFF INH Q6H, (Reported) Promethazine Hcl (Promethazine Hcl), 25 MG RC Q6HR Scheduled PRN Lorazepam* (Ativan*), 1 MG ORAL Q4HR PRN for Nausea & Vomiting, (Reported) Ondansetron Hcl* (Zofran*), 8 MG ORAL Q4HR PRN for Nausea & Vomiting, (Reported) Ondansetron Odt* (Zofran Odt*), 4 MG ORAL Q6H PRN for Nausea & Vomiting Ondansetron Odt* (Zofran Odt*), 4 MG ORAL Q6H PRN for Nausea & Vomiting Patient History History Provided By: Patient, Medical Record Healthcare decision maker Resuscitation status Full Code Advanced Directive on File Past Medical/Surgical History Past Medical/Surgical History: (1) Intractable cyclical vomiting (2) Ovarian cyst (3) Anxiety (4) Cannabis abuse Family History Family History: Patient reports no known family medical history. Social History Social History: (1) No significant social history Review of Systems Constitutional: Reports: no symptoms Eye: Reports: no symptoms ENT: Reports: no symptoms Respiratory: Reports: no symptoms Cardiovascular: Reports: no symptoms Gastrointestinal: Reports: abdominal pain, nausea, vomiting, Denies: melena, hematemesis Musculoskeletal: Reports: no symptoms Skin: Reports: no symptoms Psychiatric: Reports: no symptoms Neurological: Reports: no symptoms Endocrine: Reports: no symptoms Hematologic/Lymphatic: Reports: no symptoms Physical Exam General Appearance: WD/WN, no apparent distress, alert HEENT: normocephalic, atraumatic, anicteric, mucous membranes moist, PERRL, EOMI, supple, no JVD Respiratory/Chest: chest wall non-tender, lungs clear, normal breath sounds, no respiratory distress, no accessory muscle use Cardiovascular/Chest: normal peripheral pulses, normal rate, regular rhythm, regularly irregular, no gallop/murmur Abdomen: normal bowel sounds, soft, tender Skin Exam: normal pigmentation, no diaphoresis Neurologic: inlayer II-XII grossly normal, no motor/sensory deficits, abnormal gait , alert, oriented x 3 Last 24 Hour Vital Signs Date Time Temp Pulse Resp B/P (MAP) Pulse Ox O2 Delivery O2 Flow Rate FiO2 10/05/17 11:56 96.6 69 20 171/102 99 Room Air 10/05/17 11:39 97.3 10/05/17 08:09 97.3 62 18 155/93 98 Room Air 10/05/17 04:00 97.7 60 16 131/60 99 Room Air 10/05/17 00:45 97.6 82 14 128/72 100 Room Air 10/04/17 23:44 97.6 10/04/17 23:15 98.3 82 14 128/72 100 Room Air 10/04/17 22:20 98.3 73 14 122/76 100 Room Air 10/04/17 21:15 98.1 71 14 126/78 100 Room Air 10/04/17 20:39 97.6 10/04/17 20:00 98.7 71 13 142/85 100 Room Air 10/04/17 19:07 97.5 108 18 158/88 100 Room Air Intake and Output 10/05/17 10/06/17 19:00 07:00 Intake Total 500 ml Balance 500 ml Intake IV Total 500 ml # Bowel Movements 1 Laboratory Tests Test 10/04/17 20:00 10/05/17 05:05 10/05/17 05:30 White Blood Count 14.0 K/UL (4.8-10.8) H 14.3 K/UL (4.8-10.8) H Red Blood Count 4.21 M/UL (4.20-5.40) 4.33 M/UL (4.20-5.40) Hemoglobin 13.2 G/DL (12.0-16.0) 13.3 G/DL (12.0-16.0) Hematocrit 38.3 % (37.0-47.0) 39.2 % (37.0-47.0) Mean Corpuscular Volume 91 FL (80-99) 90 FL (80-99) Mean Corpuscular Hemoglobin 31.2 PG (27.0-31.0) H 30.8 PG (27.0-31.0) Mean Corpuscular Hemoglobin Concent 34.3 G/DL (32.0-36.0) 34.0 G/DL (32.0-36.0) Red Cell Distribution Width 11.1 % (11.6-14.8) L 11.2 % (11.6-14.8) L Platelet Count 246 K/UL (150-450) 219 K/UL (150-450) Mean Platelet Volume 6.5 FL (6.5-10.1) 6.5 FL (6.5-10.1) Neutrophils (%) (Auto) 75.9 % (45.0-75.0) H 82.8 % (45.0-75.0) H Lymphocytes (%) (Auto) 18.3 % (20.0-45.0) L 13.4 % (20.0-45.0) L Monocytes (%) (Auto) 5.0 % (1.0-10.0) 3.4 % (1.0-10.0) Eosinophils (%) (Auto) 0.1 % (0.0-3.0) 0.0 % (0.0-3.0) Basophils (%) (Auto) 0.7 % (0.0-2.0) 0.5 % (0.0-2.0) Sodium Level 141 MMOL/L (136-145) 135 MMOL/L (136-145) L Potassium Level 3.3 MMOL/L (3.5-5.1) L 3.5 MMOL/L (3.5-5.1) Chloride Level 105 MMOL/L (98-107) 103 MMOL/L (98-107) Carbon Dioxide Level 21 MMOL/L (21-32) 20 MMOL/L (21-32) L Anion Gap 16 mmol/L (5-15) H 12 mmol/L (5-15) Blood Urea Nitrogen 8 mg/dL (7-18) 5 mg/dL (7-18) L Creatinine 0.8 MG/DL (0.55-1.30) 0.7 MG/DL (0.55-1.30) Estimat Glomerular Filtration Rate > 60 mL/min (>60) > 60 mL/min (>60) Glucose Level 123 MG/DL (74-106) H 132 MG/DL (74-106) H Calcium Level 9.7 MG/DL (8.5-10.1) 9.0 MG/DL (8.5-10.1) Total Bilirubin 0.4 MG/DL (0.2-1.0) Aspartate Amino Transf (AST/SGOT) 18 U/L (15-37) Alanine Aminotransferase (ALT/SGPT) 24 U/L (12-78) Alkaline Phosphatase 48 U/L (46-116) Total Protein 7.4 G/DL (6.4-8.2) Albumin 4.4 G/DL (3.4-5.0) Globulin 3.0 g/dL Albumin/Globulin Ratio 1.5 (1.0-2.7) Lipase 95 U/L (73-393) Urine HCG, Qualitative Negative Height (Feet): 5 Height (Inches): 8.00 Weight (Pounds): 130 Medications Current Medications Medications (Trade) Dose Ordered Sig/Shanta Route PRN Reason Start Time Stop Time Status Last Admin Dose Admin Clonidine HCl (Catapres) 0.1 mg Q4H PRN ORAL SBP > 160 10/05/17 12:45 11/04/17 12:44 Dextrose/ Electrolytes 1,000 ml @ 125 mls/hr Q8H IV 10/05/17 03:00 11/04/17 02:59 10/05/17 11:08 Hydromorphone HCl (Dilaudid) 0.5 mg Q4H PRN IVP For Pain 10/05/17 02:00 10/12/17 01:59 10/05/17 11:09 Lorazepam (Ativan 2mg/ml 1ml) 0.5 mg Q6H PRN IV For Anxiety 10/05/17 02:00 10/12/17 01:59 Metoclopramide HCl (Reglan) 10 mg Q6H PRN IVP Nausea & Vomiting 10/05/17 02:00 11/04/17 01:59 10/05/17 11:08 Ondansetron HCl (Zofran) 6 mg Q4HR PRN IVP Nausea & Vomiting 10/05/17 12:45 11/04/17 06:44 Assessment/Plan Problem List: (1) Intractable cyclical vomiting ICD Codes: G43.A1 - Intractable cyclical vomiting SNOMED: 52824084 (2) Anxiety ICD Codes: F41.9 - Anxiety disorder, unspecified SNOMED: 47197210 (3) Abdominal pain ICD Codes: R10.9 - Unspecified abdominal pain SNOMED: 29393543 Qualifiers: Qualified Codes: R10.13 - Epigastric pain (4) Dehydration ICD Codes: E86.0 - Dehydration SNOMED: 23934557 (5) Cannabis abuse ICD Codes: F12.10 - Cannabis abuse, uncomplicated SNOMED: 01563985 (6) Cyclic vomiting syndrome ICD Codes: G43.A0 - Cyclical vomiting, not intractable SNOMED: 46933349 Assessment/Plan - admit to in pt - mIVF - Ativan, Zofran, reglan prn for nausea - pain control - trend CBC, CHEM - CLD once able to tolerate sips of water - supportive care - dispo planning - counseling for MJ cessation - dvt ppx: early ambulation, low risk for dvt FULL CODE Anticipate pt will require hospitalization for 1-2 days Once stable pt will be discharged home Gray Cotto MD Oct 05, 2017 13:45
[2017-10-05] MEDS ORDERED: Hydromorphone 0.5mg/0.5ml inj IVP PRN (14:35)
[2017-10-05] MEDS: HYDROmorphone 1mg/ml Carpuject IVP PRN ×2 (14:58→19:11)
[2017-10-05] MEDS ORDERED: Metoclopramide 10mg/2ml Inj IVP PRN (16:00)
[2017-10-05] MEDS ORDERED: LORazepam Inj 2mg/ml 1ml IV PRN (20:00)
[2017-10-06] MEDS: HYDROmorphone 1mg/ml Carpuject IVP PRN ×6 (00:17→22:44)
[2017-10-06 00:26] VITALS: BP 160/86
[2017-10-06] MEDS: D5 1/2NS w/KCl 20mEq 1,000 ML IV SCH ×2 (01:56→09:34)
[2017-10-06 04:00] VITALS: BP 124/67
[2017-10-06 07:04] LABS: BASOPHILS % (AUTO) 0.6 % (0.0-2.0); EOSINOPHILS % (AUTO) 0.1 % (0.0-3.0); LYMPHOCYTES % (AUTO) 22.5 % (20.0-45.0); MEAN CORPUSCULAR HEMOGLOBIN 30.7 PG (27.0-31.0); MEAN CORPUSCULAR HGB CONC 33.6 G/DL (32.0-36.0); MEAN CORPUSCULAR VOLUME 91 FL (80-99); MEAN PLATELET VOLUME 6.7 FL (6.5-10.1); MONOCYTES % (AUTO) 5.3 % (1.0-10.0); NEUTROPHILS % (AUTO) 71.6 % (45.0-75.0); PLATELET COUNT 194 K/UL (150-450); RED BLOOD COUNT 3.92 M/UL (4.20-5.40); RED CELL DISTRIBUTION WIDTH 11.3 % (11.6-14.8); WHITE BLOOD COUNT 10.1 K/UL (4.8-10.8)
[2017-10-06 08:00] VITALS: BP 127/70
[2017-10-06 08:40] LABS: ANION GAP 10 mmol/L (5-15); CALCIUM 8.9 MG/DL (8.5-10.1); CARBON DIOXIDE 25 MMOL/L (21-32); CHLORIDE 104 MMOL/L (98-107); CREATININE 0.7 MG/DL (0.55-1.30); GLOMERULAR FILTRATION RATE > 60 mL/min (>60); POTASSIUM 3.1 MMOL/L (3.5-5.1); SODIUM 138 MMOL/L (136-145)
--- NOTE | 2017-10-06 10:39 | General Progress Note ---
Assessment/Plan Problem List: (1) Intractable cyclical vomiting ICD Codes: G43.A1 - Intractable cyclical vomiting SNOMED: 90559354 (2) Anxiety ICD Codes: F41.9 - Anxiety disorder, unspecified SNOMED: 12706212 (3) Abdominal pain ICD Codes: R10.9 - Unspecified abdominal pain SNOMED: 23725358 Qualifiers: Qualified Codes: R10.13 - Epigastric pain (4) Dehydration ICD Codes: E86.0 - Dehydration SNOMED: 09295979 (5) Cannabis abuse ICD Codes: F12.10 - Cannabis abuse, uncomplicated SNOMED: 19887997 (6) Cyclic vomiting syndrome ICD Codes: G43.A0 - Cyclical vomiting, not intractable SNOMED: 85782410 Status: unchanged Assessment/Plan - GI consult - mIVF - dc Compazine - inc Ativan to 1mg q6h prn - inc Zofran to 8mg q6h prn (check serial EKG to monitor qtc) - stat scopolamine patch - c/w Reglan prn for nausea - pain control - trend CBC, CHEM - CLD once able to tolerate sips of water - supportive care - dispo planning - dvt ppx: early ambulation, low risk for dvt FULL CODE Anticipate pt will require hospitalization for 1-2 days Once stable pt will be discharged home Subjective Date patient seen: Oct 06, 2017 Allergies: Coded Allergies: PROCHLORPERAZINE (Verified Allergy, Intermediate, hives on left forearm, ) allergic reaction from pt was admitted to ED on 01/05/17 SULFA (SULFONAMIDE ANTIBIOTICS) (Verified Allergy, Unknown, 02/23/11) Subjective no acute events still w/ refractory n/v only able to tolerate some ice chips awaiting GI evaluation Objective Last 24 Hour Vital Signs Date Time Temp Pulse Resp B/P (MAP) Pulse Ox O2 Delivery O2 Flow Rate FiO2 10/06/17 08:00 97.9 79 18 127/70 97 Room Air 10/06/17 04:00 98.8 80 20 124/67 95 Room Air 10/06/17 00:26 98.1 76 19 160/86 96 Room Air 10/05/17 21:07 98.1 75 19 127/69 98 Room Air 10/05/17 20:00 98.1 75 19 127/69 98 Room Air 10/05/17 16:00 98.2 51 20 115/56 98 Room Air 10/05/17 15:28 96.6 10/05/17 13:49 62 18 140/71 99 Room Air 10/05/17 11:56 96.6 69 20 171/102 99 Room Air 10/05/17 11:39 97.3 Laboratory Tests 10/06/17 05:30: White Blood Count 10.1, Red Blood Count 3.92L, Hemoglobin 12.0, Hematocrit 35.7L , Mean Corpuscular Volume 91, Mean Corpuscular Hemoglobin 30.7, Mean Corpuscular Hemoglobin Concent 33.6, Red Cell Distribution Width 11.3L, Platelet Count 194, Mean Platelet Volume 6.7, Neutrophils (%) (Auto) 71.6, Lymphocytes (%) (Auto) 22.5, Monocytes (%) (Auto) 5.3, Eosinophils (%) (Auto) 0.1, Basophils (%) (Auto) 0.6, Sodium Level 138, Potassium Level 3.1L, Chloride Level 104, Carbon Dioxide Level 25, Anion Gap 10, Blood Urea Nitrogen 5L, Creatinine 0.7, Estimat Glomerular Filtration Rate > 60, Glucose Level 126H, Calcium Level 8.9 Height (Feet): 5 Height (Inches): 8.00 Weight (Pounds): 130 Objective General Appearance: WD/WN, no apparent distress, alert HEENT: normocephalic, atraumatic, anicteric, mucous membranes moist, PERRL, EOMI, supple, no JVD Respiratory/Chest: chest wall non-tender, lungs clear, normal breath sounds, no respiratory distress, no accessory muscle use Cardiovascular/Chest: normal peripheral pulses, normal rate, regular rhythm, regularly irregular, no gallop/murmur Abdomen: normal bowel sounds, soft, tender Skin Exam: normal pigmentation, no diaphoresis 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
[2017-10-06] MEDS ORDERED: SUMAtriptan 6mg/0.5ml Inj SUBQ PRN (11:00)
[2017-10-06 12:00] VITALS: BP 155/90
[2017-10-06] MEDS: TransDerm Scop 1mg/72HR Patch TDERMAL SCH (12:01)
[2017-10-06] MEDS: Dextrose 10%/.45 SOD CHL 1,000 ML IV SCH ×2 (12:47→20:00)
[2017-10-06] MEDS: ONDANSETRON IV PRN ×2 (15:17→20:22)
[2017-10-06] MEDS: NS IV PRN ×2 (15:17→20:22)
[2017-10-06 16:00] VITALS: BP 174/109
[2017-10-06] MEDS: Metoclopramide 10mg/2ml Inj IVP PRN (18:02)
--- NOTE | 2017-10-06 19:05 | General Progress Note ---
Assessment/Plan Assessment/Plan GI CONSULT Dictated Assessment - self reported h/o cyclic N/V syndrome - features of CNVS present, but cannot r/o component of cannabis hyperemesis syndrome Recommendations - BDZ IV Prn - trial of imitrex nasal - may benefit from nursing home suppression with elavil 25 qhs (after acute attack resolved) - strongly encouraged to d/c cannabis - PPI will follow Thank you Monika Cheney MD Subjective Allergies: Coded Allergies: PROCHLORPERAZINE (Verified Allergy, Intermediate, hives on left forearm, ) allergic reaction from pt was admitted to ED on 01/05/17 SULFA (SULFONAMIDE ANTIBIOTICS) (Verified Allergy, Unknown, 02/23/11) Objective Last 24 Hour Vital Signs Date Time Temp Pulse Resp B/P (MAP) Pulse Ox O2 Delivery O2 Flow Rate FiO2 10/06/17 18:32 98.6 10/06/17 16:00 98.6 67 19 174/109 95 Room Air 10/06/17 12:00 97.7 69 18 155/90 97 Room Air 10/06/17 08:00 97.9 79 18 127/70 97 Room Air 10/06/17 04:00 98.8 80 20 124/67 95 Room Air 10/06/17 00:26 98.1 76 19 160/86 96 Room Air 10/05/17 21:07 98.1 75 19 127/69 98 Room Air 10/05/17 20:00 98.1 75 19 127/69 98 Room Air Intake and Output 10/06/17 10/07/17 19:00 07:00 Intake Total 351.5 ml Output Total 50 ml Balance 301.5 ml IV Total 351.5 ml Output Emesis 50 ml # Voids 2 # Bowel Movements 1 Laboratory Tests 10/06/17 05:30: White Blood Count 10.1, Red Blood Count 3.92L, Hemoglobin 12.0, Hematocrit 35.7L , Mean Corpuscular Volume 91, Mean Corpuscular Hemoglobin 30.7, Mean Corpuscular Hemoglobin Concent 33.6, Red Cell Distribution Width 11.3L, Platelet Count 194, Mean Platelet Volume 6.7, Neutrophils (%) (Auto) 71.6, Lymphocytes (%) (Auto) 22.5, Monocytes (%) (Auto) 5.3, Eosinophils (%) (Auto) 0.1, Basophils (%) (Auto) 0.6, Sodium Level 138, Potassium Level 3.1L, Chloride Level 104, Carbon Dioxide Level 25, Anion Gap 10, Blood Urea Nitrogen 5L, Creatinine 0.7, Estimat Glomerular Filtration Rate > 60, Glucose Level 126H, Calcium Level 8.9 Height (Feet): 5 Height (Inches): 8.00 Weight (Pounds): 130 MONIKA CHENEY Oct 06, 2017 19:05
[2017-10-06] MEDS ORDERED: POTASSIUM CHLORIDE IV SCH (19:30)
[2017-10-06] MEDS ORDERED: D5W IV SCH (19:30)
[2017-10-06 20:00] VITALS: BP 157/92
[2017-10-07] VITALS (7 sets, daily range): BP systolic 121–191; BP diastolic 72–109
[2017-10-07] MEDS: NS IV PRN ×5 (01:56→23:03)
[2017-10-07] MEDS: ONDANSETRON IV PRN ×5 (01:56→23:03)
[2017-10-07] MEDS: Metoclopramide 10mg/2ml Inj IVP PRN ×3 (02:04→19:01)
[2017-10-07] MEDS: HYDROmorphone 1mg/ml Carpuject IVP PRN ×6 (03:04→23:54)
[2017-10-07] MEDS: Dextrose 10%/.45 SOD CHL 1,000 ML IV SCH ×2 (04:02→08:55)
[2017-10-07 07:58] LABS: ANION GAP 15 mmol/L (5-15); CALCIUM 9.9 MG/DL (8.5-10.1); CARBON DIOXIDE 22 MMOL/L (21-32); CHLORIDE 102 MMOL/L (98-107); CREATININE 0.8 MG/DL (0.55-1.30); GLOMERULAR FILTRATION RATE > 60 mL/min (>60); SODIUM 139 MMOL/L (136-145)
[2017-10-07 08:00] LABS: BASOPHILS % (AUTO) 0.5 % (0.0-2.0); LYMPHOCYTES % (AUTO) 15.4 % (20.0-45.0); MEAN CORPUSCULAR HEMOGLOBIN 29.9 PG (27.0-31.0); MEAN CORPUSCULAR HGB CONC 33.6 G/DL (32.0-36.0); MEAN CORPUSCULAR VOLUME 89 FL (80-99); MEAN PLATELET VOLUME 6.4 FL (6.5-10.1); MONOCYTES % (AUTO) 5.5 % (1.0-10.0); NEUTROPHILS % (AUTO) 78.6 % (45.0-75.0); PLATELET COUNT 246 K/UL (150-450); RED BLOOD COUNT 4.71 M/UL (4.20-5.40); RED CELL DISTRIBUTION WIDTH 10.9 % (11.6-14.8); WHITE BLOOD COUNT 15.3 K/UL (4.8-10.8)
--- NOTE | 2017-10-07 10:27 | General Progress Note ---
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 25 qhs (after acute attack resolved) - strongly encouraged to d/c cannabis - PPI - consider addiction medicine consultation Subjective Allergies: Coded Allergies: PROCHLORPERAZINE (Verified Allergy, Intermediate, hives on left forearm, ) allergic reaction from pt was admitted to ED on 01/05/17 SULFA (SULFONAMIDE ANTIBIOTICS) (Verified Allergy, Unknown, 02/23/11) Subjective patient tearful and anxious some dry heaves despite Valium, Zofran, Reglan, Scopolamine, dilaudid wants more BDZ and antiemetics no BM no hematemesis Objective Last 24 Hour Vital Signs Date Time Temp Pulse Resp B/P (MAP) Pulse Ox O2 Delivery O2 Flow Rate FiO2 10/07/17 07:48 99.2 71 18 150/95 99 Room Air 10/07/17 04:00 97.8 75 18 154/88 98 Room Air 10/07/17 00:00 98.1 77 20 153/90 96 Room Air 10/06/17 20:00 97.0 74 20 157/92 97 Room Air 10/06/17 18:32 98.6 10/06/17 16:00 98.6 67 19 174/109 95 Room Air 10/06/17 12:00 97.7 69 18 155/90 97 Room Air Laboratory Tests 10/07/17 05:15: White Blood Count 15.3#H, Red Blood Count 4.71, Hemoglobin 14.1, Hematocrit 41.9 , Mean Corpuscular Volume 89, Mean Corpuscular Hemoglobin 29.9, Mean Corpuscular Hemoglobin Concent 33.6, Red Cell Distribution Width 10.9L, Platelet Count 246, Mean Platelet Volume 6.4L, Neutrophils (%) (Auto) 78.6H, Lymphocytes (%) (Auto) 15.4L, Monocytes (%) (Auto) 5.5, Eosinophils (%) (Auto) 0.0, Basophils (%) (Auto) 0.5, Sodium Level 139, Potassium Level 3.0L, Chloride Level 102, Carbon Dioxide Level 22, Anion Gap 15, Blood Urea Nitrogen 7, Creatinine 0.8, Estimat Glomerular Filtration Rate > 60, Glucose Level 144H, Calcium Level 9.9, Magnesium Level 1.9 Height (Feet): 5 Height (Inches): 8.00 Weight (Pounds): 130 Objective WDWN tearful NCAT supple CTA RRR Abd soft ND mild diffuse TTP no edema MART GUERRERO Oct 07, 2017 10:27
[2017-10-07] MEDS: NS w/KCl 40mEq 1,000 ML IV SCH ×2 (10:34→19:05)
--- NOTE | 2017-10-07 13:30 | Consultation ---
DATE OF CONSULTATION: 10/06/2017 GASTROENTEROLOGY CONSULTATION CONSULTING PHYSICIAN: Monika Cheney M.D. CHIEF COMPLAINT: I was asked to see this patient by Dr. Zachary Lopez for evaluation of nausea and vomiting. HISTORY OF PRESENT ILLNESS: The patient is a 32-year-old white woman with a self-reported history of cyclic nausea and vomiting syndrome for 15 to 20 years, who comes in to the hospital due to episode of vomiting. This episode started a day or two ago and her episodes usually last 2 to 3 days. She has about 3 to 5 episodes a year. She had an endoscopy about 10 years ago, which was unrevealing. She has no headaches, but does have some mild degree of photophobia and wishes to keep the room dark. She has some mild epigastric pain. Her test was negative. She has been tried on multiple medications with poor success. She also uses cannabis on a daily basis. She said she started using cannabis a few years before her cyclic nausea and vomiting started about 15 years ago. PAST MEDICAL HISTORY: History of cyclic nausea and vomiting syndrome and mild asthma. MEDICATIONS: control pill and inhaler. ALLERGIES: Sulfa and prochlorperazine. SOCIAL HISTORY: The patient has a boyfriend. She does not smoke. She drinks occasionally. Does use marijuana on a daily basis. FAMILY HISTORY: Noncontributory. REVIEW OF SYSTEMS: Otherwise negative. PHYSICAL EXAMINATION: GENERAL: A pleasant white woman, who is in distress with retching. HEENT: Normocephalic and atraumatic. Sclerae anicteric. Oropharynx clear. NECK: Supple. CHEST: Clear to auscultation. CARDIOVASCULAR: Regular rhythm and rate. ABDOMEN: Soft. Good bowel sounds. There is no organomegaly. EXTREMITIES: Revealed no edema. LABORATORY DATA: Noted. ASSESSMENT: This patient presents with an onset of nausea and vomiting, which is presumptively due to her cyclic nausea and vomiting syndrome. Some of her symptoms such as photophobia suggests migraine disorder. She does have a typically migraine like disorder and treatments often are similar. On the other hand, she also has a longstanding history of cannabis use, and therefore, the possibility of cannabis hyperemesis syndrome would have to be also considered. For the time being, I will treat the patient with antiemetics, especially benzodiazepines to reduce her heating. Once she recovers, then a long-term suppression can be tried with tricyclic antidepressant or possibly even beta blockers. There can be a possibility of a contribution of cannabis hyperemesis syndrome. I strongly advised the patient to discontinue using the cannabis to see some improvement in her symptoms. RECOMMENDATIONS: Per above discussion and per orders written in the chart. Thank you for asking me to participate in the care of this patient. Monika Cheney M.D. DR: DAHLIA JOB#: [id number] CC: TERESA
[2017-10-07] MEDS: Trimethobenzamide 100mg/ml 2ml vial IM PRN (14:18)
--- NOTE | 2017-10-07 15:49 | General Progress Note ---
Assessment/Plan Problem List: (1) Intractable nausea and vomiting ICD Codes: R11.2 - Nausea with vomiting, unspecified SNOMED: 223922244, 447091314 Qualifiers: Qualified Codes: G43.A1 - Cyclical vomiting, intractable (2) Cyclic vomiting syndrome ICD Codes: G43.A0 - Cyclical vomiting, not intractable SNOMED: 78048335 (3) Cannabis abuse ICD Codes: F12.10 - Cannabis abuse, uncomplicated SNOMED: 19559300 (4) Dehydration ICD Codes: E86.0 - Dehydration SNOMED: 17064648 (5) Anxiety ICD Codes: F41.9 - Anxiety disorder, unspecified SNOMED: 08789820 (6) Hypokalemia ICD Codes: E87.6 - Hypokalemia SNOMED: 93653939 (7) Leukocytosis Assessment & Plan: Likely reactive, no e/o infection ICD Codes: D72.829 - Leukocytosis SNOMED: 540625748 Status: stable Assessment/Plan - GI consulted, appreciate rec's - mIVF + KCl - dc Compazine - zofran to 8mg q6h PRN (check serial EKG to monitor qtc) - Reglan PRN - Valium PRN - Scopolamine patch - pain control - trend CBC, CHEM - CLD for now and ADAT - supportive care - dispo planning - dvt ppx: early ambulation, low risk for dvt FULL CODE Anticipate pt will require hospitalization for 1-2 days Once stable pt will be discharged home Subjective Date patient seen: Oct 07, 2017 Time patient seen: 15:49 ROS Limited/Unobtainable: No Constitutional: Reports: no symptoms HEENT: Reports: no symptoms Cardiovascular: Reports: no symptoms Respiratory: Reports: no symptoms Gastrointestinal/Abdominal: Reports: abdominal pain, nausea, poor appetite, vomiting Genitourinary: Reports: no symptoms Neurologic/Psychiatric: Reports: no symptoms Endocrine: Reports: no symptoms Hematologic/Lymphatic: Reports: no symptoms Allergies: Coded Allergies: PROCHLORPERAZINE (Verified Allergy, Intermediate, hives on left forearm, ) allergic reaction from pt was admitted to ED on 01/05/17 SULFA (SULFONAMIDE ANTIBIOTICS) (Verified Allergy, Unknown, 02/23/11) All Systems: reviewed and negative except above Subjective No acute o/n events Cont to have nausea and vomiting. Tolerating minimal PO intake Abd pain controlled w/ pain meds Denies f/c, chest pain, SOB Objective Last 24 Hour Vital Signs Date Time Temp Pulse Resp B/P (MAP) Pulse Ox O2 Delivery O2 Flow Rate FiO2 10/07/17 12:43 97.8 77 19 160/109 Room Air 10/07/17 07:48 99.2 71 18 150/95 99 Room Air 10/07/17 04:00 97.8 75 18 154/88 98 Room Air 10/07/17 00:00 98.1 77 20 153/90 96 Room Air 10/06/17 20:00 97.0 74 20 157/92 97 Room Air 10/06/17 18:32 98.6 10/06/17 16:00 98.6 67 19 174/109 95 Room Air Intake and Output 10/07/17 10/08/17 19:00 07:00 Intake Total 559 ml Balance 559 ml IV Total 559 ml Laboratory Tests 10/07/17 05:15: White Blood Count 15.3#H, Red Blood Count 4.71, Hemoglobin 14.1, Hematocrit 41.9 , Mean Corpuscular Volume 89, Mean Corpuscular Hemoglobin 29.9, Mean Corpuscular Hemoglobin Concent 33.6, Red Cell Distribution Width 10.9L, Platelet Count 246, Mean Platelet Volume 6.4L, Neutrophils (%) (Auto) 78.6H, Lymphocytes (%) (Auto) 15.4L, Monocytes (%) (Auto) 5.5, Eosinophils (%) (Auto) 0.0, Basophils (%) (Auto) 0.5, Sodium Level 139, Potassium Level 3.0L, Chloride Level 102, Carbon Dioxide Level 22, Anion Gap 15, Blood Urea Nitrogen 7, Creatinine 0.8, Estimat Glomerular Filtration Rate > 60, Glucose Level 144H, Calcium Level 9.9, Magnesium Level 1.9 Height (Feet): 5 Height (Inches): 8.00 Weight (Pounds): 130 Objective General Appearance: WD/WN, no apparent distress, alert HEENT: normocephalic, atraumatic, anicteric, mucous membranes moist, PERRL, EOMI, supple, no JVD Respiratory/Chest: chest wall non-tender, lungs clear, normal breath sounds, no respiratory distress, no accessory muscle use Cardiovascular/Chest: normal peripheral pulses, normal rate, regular rhythm, regularly irregular, no gallop/murmur Abdomen: normal bowel sounds, soft, mild TTP of lower abd b/l Skin Exam: normal pigmentation, no diaphoresis 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 Oct 07, 2017 15:49
--- NOTE | 2017-10-07 20:22 | Cardiology Report ---
APPROVED REPORT EKG Measurement Heart [id number] OR [id number] Normal sinus rhythm Normal ECG
[2017-10-08] MEDS: Metoclopramide 10mg/2ml Inj IVP PRN ×3 (02:02→17:42)
[2017-10-08] MEDS: NS w/KCl 40mEq 1,000 ML IV SCH ×3 (02:23→21:05)
[2017-10-08 04:00] VITALS: BP 170/106
[2017-10-08] MEDS: HYDROmorphone 1mg/ml Carpuject IVP PRN ×5 (05:36→22:26)
[2017-10-08] MEDS: Trimethobenzamide 100mg/ml 2ml vial IM PRN ×3 (05:36→22:26)
[2017-10-08] MEDS: NS IV PRN ×2 (06:34→20:43)
[2017-10-08] MEDS: ONDANSETRON IV PRN ×2 (06:34→20:43)
[2017-10-08 08:07] LABS: BASOPHILS % (AUTO) 0.5 % (0.0-2.0); EOSINOPHILS % (AUTO) 0.1 % (0.0-3.0); LYMPHOCYTES % (AUTO) 20.1 % (20.0-45.0); MEAN CORPUSCULAR HEMOGLOBIN 30.6 PG (27.0-31.0); MEAN CORPUSCULAR HGB CONC 34.4 G/DL (32.0-36.0); MEAN CORPUSCULAR VOLUME 89 FL (80-99); MEAN PLATELET VOLUME 6.5 FL (6.5-10.1); MONOCYTES % (AUTO) 7.1 % (1.0-10.0); NEUTROPHILS % (AUTO) 72.3 % (45.0-75.0); PLATELET COUNT 213 K/UL (150-450); RED BLOOD COUNT 4.34 M/UL (4.20-5.40); RED CELL DISTRIBUTION WIDTH 11.1 % (11.6-14.8); WHITE BLOOD COUNT 13.5 K/UL (4.8-10.8)
[2017-10-08 08:32] VITALS: BP 143/94
[2017-10-08 08:44] LABS: ANION GAP 10 mmol/L (5-15); CALCIUM 8.8 MG/DL (8.5-10.1); CARBON DIOXIDE 24 MMOL/L (21-32); CHLORIDE 104 MMOL/L (98-107); CREATININE 0.7 MG/DL (0.55-1.30); GLOMERULAR FILTRATION RATE > 60 mL/min (>60); POTASSIUM 3.4 MMOL/L (3.5-5.1); SODIUM 138 MMOL/L (136-145)
--- NOTE | 2017-10-08 12:15 | General Progress Note ---
Assessment/Plan Assessment/Plan Assessment - self reported h/o cyclic N/V syndrome - features of CNVS present, but cannot r/o component of cannabis hyperemesis syndrome - appears to be in a Canabis withdrawal state - concerned about frequent dilaudid requests, WBC, TTP - will check CT Recommendations - check CT scan of abd and pelvis - monitor labs - BDZ IV Prn - may benefit from long-term suppression with elavil 25 qhs (after acute attack resolved) - strongly encouraged to d/c cannabis - PPI - consider addiction medicine consultation Subjective Allergies: Coded Allergies: PROCHLORPERAZINE (Verified Allergy, Intermediate, hives on left forearm, ) allergic reaction from pt was admitted to ED on 01/05/17 SULFA (SULFONAMIDE ANTIBIOTICS) (Verified Allergy, Unknown, 02/23/11) Subjective patient tearful and anxious still with dry heaves asking for dilaudid ATC wants more BDZ and antiemetics no BM no hematemesis Objective Last 24 Hour Vital Signs Date Time Temp Pulse Resp B/P (MAP) Pulse Ox O2 Delivery O2 Flow Rate FiO2 10/08/17 08:32 97.8 92 19 143/94 98 Room Air 10/08/17 04:00 97.7 95 20 170/106 98 Room Air 10/07/17 23:49 97.8 79 21 191/105 97 Room Air 10/07/17 20:00 97.3 56 17 121/72 98 Room Air 10/07/17 16:00 97.7 67 18 154/97 Room Air 10/07/17 12:43 97.8 77 19 160/109 Room Air Intake and Output 10/08/17 10/09/17 19:00 07:00 Intake Total 185 ml Balance 185 ml Intake Oral 185 ml Laboratory Tests 10/08/17 07:35: White Blood Count 13.5H, Red Blood Count 4.34, Hemoglobin 13.3, Hematocrit 38.7 , Mean Corpuscular Volume 89, Mean Corpuscular Hemoglobin 30.6, Mean Corpuscular Hemoglobin Concent 34.4, Red Cell Distribution Width 11.1L, Platelet Count 213, Mean Platelet Volume 6.5, Neutrophils (%) (Auto) 72.3, Lymphocytes (%) (Auto) 20.1, Monocytes (%) (Auto) 7.1, Eosinophils (%) (Auto) 0.1, Basophils (%) (Auto) 0.5, Sodium Level 138, Potassium Level 3.4L, Chloride Level 104, Carbon Dioxide Level 24, Anion Gap 10, Blood Urea Nitrogen 7, Creatinine 0.7, Estimat Glomerular Filtration Rate > 60, Glucose Level 106, Calcium Level 8.8 Height (Feet): 5 Height (Inches): 8.00 Weight (Pounds): 130 Objective WDWN tearful NCAT supple CTA RRR Abd soft ND mild diffuse TTP no edema MART GUERRERO Oct 08, 2017 12:15
[2017-10-08] MEDS: LORazepam Inj 2mg/ml 1ml IV PRN (14:25)
--- NOTE | 2017-10-08 15:12 | Consultation ---
History of Present Illness General Chief Complaint: Nausea Present Illness HPI 32-year-old woman with a self-reported history of cyclic nausea and vomiting syndrome for 15 to 20 years, who comes in to the hospital due to episode of vomiting. the pt stated that she is feeling sick and is anxious and irritable. the pt was not open to any other psychotropics meds beside ativan. the pt stated "they want me to stop smoking medical marijuana and look at me I'm not doing well." the pt state that she has tried other meds before and now ativan is working for her. the pt denied any psychotic or manic sxs. Allergies: Coded Allergies: PROCHLORPERAZINE (Verified Allergy, Intermediate, hives on left forearm, ) allergic reaction from pt was admitted to ED on 01/05/17 SULFA (SULFONAMIDE ANTIBIOTICS) (Verified Allergy, Unknown, 02/23/11) Medication History Scheduled Albuterol Sulfate* (Proair Hfa*), 1 PUFF INH Q6H, (Reported) Promethazine Hcl (Promethazine Hcl), 25 MG RC Q6HR Scheduled PRN Lorazepam* (Ativan*), 1 MG ORAL Q4HR PRN for Nausea & Vomiting, (Reported) Ondansetron Hcl* (Zofran*), 8 MG ORAL Q4HR PRN for Nausea & Vomiting, (Reported) Ondansetron Odt* (Zofran Odt*), 4 MG ORAL Q6H PRN for Nausea & Vomiting Ondansetron Odt* (Zofran Odt*), 4 MG ORAL Q6H PRN for Nausea & Vomiting Patient History History Provided By: Patient, Medical Record, PMD Healthcare decision maker Resuscitation status Full Code Advanced Directive on File Past Medical/Surgical History Past Medical/Surgical History: (1) vomiting able to tolerate PO fluids (2) Elevated lipase (3) Hypercalcemia (4) Vomiting (5) Hypokalemia (6) Abdominal pain (7) Ovarian cyst (8) Intractable cyclical vomiting (9) Intractable cyclical vomiting (10) Anxiety (11) Hypokalemia (12) Leukocytosis (13) Dehydration (14) Cannabis abuse (15) Cyclic vomiting syndrome (16) Intractable nausea and vomiting Review of Systems Psychiatric: Reports: prior hx, anxiety, depressed feelings, emotional problems Physical Exam General Appearance: alert, moderate distress, thin Neurologic: alert, oriented x 3, responsive, depressed affect Last 24 Hour Vital Signs Date Time Temp Pulse Resp B/P (MAP) Pulse Ox O2 Delivery O2 Flow Rate FiO2 10/08/17 12:00 97.8 10/08/17 08:32 97.8 92 19 143/94 98 Room Air 10/08/17 04:00 97.7 95 20 170/106 98 Room Air 10/07/17 23:49 97.8 79 21 191/105 97 Room Air 10/07/17 20:00 97.3 56 17 121/72 98 Room Air 10/07/17 16:00 97.7 67 18 154/97 Room Air Intake and Output 10/08/17 10/09/17 19:00 07:00 Intake Total 425 ml Balance 425 ml Intake Oral 425 ml # Voids 1 Laboratory Tests Test 10/08/17 07:35 White Blood Count 13.5 K/UL (4.8-10.8) H Red Blood Count 4.34 M/UL (4.20-5.40) Hemoglobin 13.3 G/DL (12.0-16.0) Hematocrit 38.7 % (37.0-47.0) Mean Corpuscular Volume 89 FL (80-99) Mean Corpuscular Hemoglobin 30.6 PG (27.0-31.0) Mean Corpuscular Hemoglobin Concent 34.4 G/DL (32.0-36.0) Red Cell Distribution Width 11.1 % (11.6-14.8) L Platelet Count 213 K/UL (150-450) Mean Platelet Volume 6.5 FL (6.5-10.1) Neutrophils (%) (Auto) 72.3 % (45.0-75.0) Lymphocytes (%) (Auto) 20.1 % (20.0-45.0) Monocytes (%) (Auto) 7.1 % (1.0-10.0) Eosinophils (%) (Auto) 0.1 % (0.0-3.0) Basophils (%) (Auto) 0.5 % (0.0-2.0) Sodium Level 138 MMOL/L (136-145) Potassium Level 3.4 MMOL/L (3.5-5.1) L Chloride Level 104 MMOL/L (98-107) Carbon Dioxide Level 24 MMOL/L (21-32) Anion Gap 10 mmol/L (5-15) Blood Urea Nitrogen 7 mg/dL (7-18) Creatinine 0.7 MG/DL (0.55-1.30) Estimat Glomerular Filtration Rate > 60 mL/min (>60) Glucose Level 106 MG/DL (74-106) Calcium Level 8.8 MG/DL (8.5-10.1) Height (Feet): 5 Height (Inches): 8.00 Weight (Pounds): 130 Medications Current Medications Medications (Trade) Dose Ordered Sig/Shanta Route PRN Reason Start Time Stop Time Status Last Admin Dose Admin Hydromorphone HCl (Dilaudid) 0.5 mg Q4H PRN IVP Moderate Pain (Pain Scale 4-6) 10/05/17 14:35 10/12/17 14:34 Hydromorphone HCl (Dilaudid) 1 mg Q4H PRN IVP Severe Pain (Pain Scale 7-10) 10/05/17 15:00 10/12/17 14:59 10/08/17 11:33 Lorazepam (Ativan 2mg/ml 1ml) 1 mg Q4H PRN IV Anxiety/Agitation 10/08/17 12:45 10/15/17 12:44 10/08/17 14:25 Metoclopramide HCl (Reglan) 10 mg Q6H PRN IVP N/V 10/07/17 09:45 11/04/17 15:59 10/08/17 09:34 Ondansetron HCl 8 mg/Sodium Chloride 59 ml @ 236 mls/hr Q4H PRN IV Nausea & Vomiting 10/07/17 10:00 11/05/17 10:59 10/08/17 06:34 Scopolamine (TransDerm Scop 1mg/72HR Patch) 1 mg Q72H TDERMAL 10/06/17 12:00 11/05/17 11:59 10/06/17 12:01 Sodium Chloride 1,000 ml @ 100 mls/hr Q10H IV 10/08/17 11:00 11/07/17 10:59 10/08/17 12:01 Sumatriptan Succinate (Imitrex) 6 mg DAILYPRN PRN SUBQ For Headache 10/06/17 11:00 11/05/17 10:59 11/5/17 12:47 Trimethobenzamide HCl (Tigan) 200 mg Q6H PRN IM Nausea & Vomiting 10/07/17 10:00 11/06/17 09:59 10/08/17 14:24 Assessment/Plan Status: stable Assessment/Plan cannabis dependence hyperemesis due to cannabis use. -the pt was reluctant to take meds -cont to ativan -will cont to see her and educate her Jonathan Elise M.D. Oct 08, 2017 15:12
--- NOTE | 2017-10-08 15:50 | Diagnostic Imaging Report ---
Indication: Abdominal pain Technique: Continuous helical transaxial imaging of the abdomen and pelvis was obtained from the lung bases to the pubic symphysis. No intravenous contrast was administered. Coronal 2-D reformats were also obtained. Automatic Exposure Control was utilized. Total Dose length Product (DLP): [address] Dose Index Volume (CTDIvol): 0.15 , 12.33 mGy Comparison: none Findings: The lung bases are clear. Solid organ evaluation is limited on noncontrast study. That said no obvious abnormalities identified. There is no nephrolithiasis hydronephrosis. The appendix is normal in appearance. There is some increased intraluminal density which may be appendicolith. There is no bowel obstruction evident on this study. There is no free fluid or free air identified. The uterus is present. Urinary bladder is unremarkable. Impression: No acute findings identified. The CT scanner at [facility] is accredited by the [employer] and the scans are performed using dose optimization techniques as appropriate to a performed exam including Automatic Exposure control.
[2017-10-08 17:58] VITALS: BP 131/86
[2017-10-08] MEDS: Pantoprazole Inj IVP SCH (19:30)
[2017-10-08 20:00] VITALS: BP 148/95
[2017-10-09] MEDS: LORazepam Inj 2mg/ml 1ml IV PRN ×2 (01:15→09:37)
[2017-10-09] MEDS: ONDANSETRON IV PRN ×2 (01:15→17:07)
[2017-10-09] MEDS: NS IV PRN ×2 (01:15→17:07)
--- NOTE | 2017-10-09 02:19 | General Progress Note ---
Assessment/Plan Problem List: (1) Intractable nausea and vomiting ICD Codes: R11.2 - Nausea with vomiting, unspecified SNOMED: 266646748, 125702178 Qualifiers: Qualified Codes: G43.A1 - Cyclical vomiting, intractable (2) Cyclic vomiting syndrome ICD Codes: G43.A0 - Cyclical vomiting, not intractable SNOMED: 08608292 (3) Cannabis abuse ICD Codes: F12.10 - Cannabis abuse, uncomplicated SNOMED: 80547721 (4) Dehydration ICD Codes: E86.0 - Dehydration SNOMED: 64456711 (5) Anxiety ICD Codes: F41.9 - Anxiety disorder, unspecified SNOMED: 23026591 (6) Hypokalemia ICD Codes: E87.6 - Hypokalemia SNOMED: 37890426 (7) Leukocytosis Assessment & Plan: Likely reactive, no e/o infection ICD Codes: D72.829 - Leukocytosis SNOMED: 496532011 Status: stable Assessment/Plan - GI consulted, appreciate rec's - F/u CT a/p - mIVF + KCl - [id number] q6h PRN (check serial EKG to monitor qtc) - Reglan PRN - Ativan IV PRN (valium d/c'd given shortage per pharmacist) - Scopolamine patch - pain control - trend CBC, CHEM - CLD for now and ADAT - supportive care - dispo planning - dvt ppx: early ambulation, low risk for dvt FULL CODE Anticipate pt will require hospitalization for 1-2 days Once stable pt will be discharged home Subjective Date patient seen: Oct 08, 2017 Time patient seen: 16:00 Constitutional: Reports: malaise, weakness HEENT: Reports: no symptoms Cardiovascular: Reports: no symptoms Respiratory: Reports: no symptoms Gastrointestinal/Abdominal: Reports: abdominal pain, nausea, poor appetite, vomiting Genitourinary: Reports: no symptoms Neurologic/Psychiatric: Reports: no symptoms Endocrine: Reports: no symptoms Hematologic/Lymphatic: Reports: no symptoms Allergies: Coded Allergies: PROCHLORPERAZINE (Verified Allergy, Intermediate, hives on left forearm, ) allergic reaction from pt was admitted to ED on 01/05/17 SULFA (SULFONAMIDE ANTIBIOTICS) (Verified Allergy, Unknown, 02/23/11) All Systems: reviewed and negative except above Subjective No acute o/n events CT a/p done per GI Cont to have nausea and vomiting. Tolerating minimal PO intake Abd pain controlled w/ pain meds Denies f/c, chest pain, SOB Objective Last 24 Hour Vital Signs Date Time Temp Pulse Resp B/P (MAP) Pulse Ox O2 Delivery O2 Flow Rate FiO2 10/08/17 20:00 98.7 117 16 148/95 95 Room Air 10/08/17 18:00 98.8 10/08/17 17:58 98.8 89 20 131/86 100 Room Air 10/08/17 08:32 97.8 92 19 143/94 98 Room Air 10/08/17 04:00 97.7 95 20 170/106 98 Room Air Laboratory Tests 10/08/17 07:35: White Blood Count 13.5H, Red Blood Count 4.34, Hemoglobin 13.3, Hematocrit 38.7 , Mean Corpuscular Volume 89, Mean Corpuscular Hemoglobin 30.6, Mean Corpuscular Hemoglobin Concent 34.4, Red Cell Distribution Width 11.1L, Platelet Count 213, Mean Platelet Volume 6.5, Neutrophils (%) (Auto) 72.3, Lymphocytes (%) (Auto) 20.1, Monocytes (%) (Auto) 7.1, Eosinophils (%) (Auto) 0.1, Basophils (%) (Auto) 0.5, Sodium Level 138, Potassium Level 3.4L, Chloride Level 104, Carbon Dioxide Level 24, Anion Gap 10, Blood Urea Nitrogen 7, Creatinine 0.7, Estimat Glomerular Filtration Rate > 60, Glucose Level 106, Calcium Level 8.8 Height (Feet): 5 Height (Inches): 8.00 Weight (Pounds): 130 Objective General Appearance: WD/WN, no apparent distress, alert HEENT: normocephalic, atraumatic, anicteric, mucous membranes moist, PERRL, EOMI, supple, no JVD Respiratory/Chest: chest wall non-tender, lungs clear, normal breath sounds, no respiratory distress, no accessory muscle use Cardiovascular/Chest: normal peripheral pulses, normal rate, regular rhythm, regularly irregular, no gallop/murmur Abdomen: normal bowel sounds, soft, mild TTP of lower abd b/l Skin Exam: normal pigmentation, no diaphoresis 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 Oct 09, 2017 02:19
[2017-10-09 04:00] VITALS: BP 150/94
[2017-10-09] MEDS: HYDROmorphone 1mg/ml Carpuject IVP PRN ×4 (04:49→20:30)
[2017-10-09] MEDS: Metoclopramide 10mg/2ml Inj IVP PRN ×3 (04:49→20:30)
[2017-10-09 06:40] LABS: BASOPHILS % (AUTO) 0.9 % (0.0-2.0); EOSINOPHILS % (AUTO) 0.6 % (0.0-3.0); LYMPHOCYTES % (AUTO) 31.6 % (20.0-45.0); MEAN CORPUSCULAR HEMOGLOBIN 31.2 PG (27.0-31.0); MEAN CORPUSCULAR HGB CONC 34.1 G/DL (32.0-36.0); MEAN CORPUSCULAR VOLUME 92 FL (80-99); MEAN PLATELET VOLUME 6.7 FL (6.5-10.1); MONOCYTES % (AUTO) 6.4 % (1.0-10.0); NEUTROPHILS % (AUTO) 60.5 % (45.0-75.0); PLATELET COUNT 240 K/UL (150-450); RED BLOOD COUNT 4.44 M/UL (4.20-5.40); RED CELL DISTRIBUTION WIDTH 12.1 % (11.6-14.8); WHITE BLOOD COUNT 9.9 K/UL (4.8-10.8)
[2017-10-09] MEDS: NS w/KCl 40mEq 1,000 ML IV SCH ×3 (06:52→18:39)
[2017-10-09 07:01] LABS: ALANINE AMINOTRANSFERASE 24 U/L (12-78); ALBUMIN/GLOBULIN RATIO 1.3 (1.0-2.7); ANION GAP 13 mmol/L (5-15); ASPARTATE AMINO TRANSFERASE 17 U/L (15-37); CALCIUM 9.1 MG/DL (8.5-10.1); CARBON DIOXIDE 22 MMOL/L (21-32); CHLORIDE 103 MMOL/L (98-107); CREATININE 0.9 MG/DL (0.55-1.30); GLOMERULAR FILTRATION RATE > 60 mL/min (>60); LIPASE 150 U/L (73-393); MAGNESIUM 1.7 MG/DL (1.8-2.4); POTASSIUM 3.8 MMOL/L (3.5-5.1); SODIUM 138 MMOL/L (136-145); TOTAL PROTEIN 6.8 G/DL (6.4-8.2)
[2017-10-09 08:00] VITALS: BP 105/56
[2017-10-09] MEDS: Pantoprazole Inj IVP SCH (09:37)
[2017-10-09] MEDS: Trimethobenzamide 100mg/ml 2ml vial IM PRN (09:37)
[2017-10-09 12:00] VITALS: BP 122/63
[2017-10-09] MEDS: TransDerm Scop 1mg/72HR Patch TDERMAL SCH (12:42)
[2017-10-09 16:00] VITALS: BP 122/65
[2017-10-09 20:00] VITALS: BP 125/75
--- NOTE | 2017-10-09 20:13 | General Progress Note ---
Assessment/Plan Problem List: (1) Intractable nausea and vomiting ICD Codes: R11.2 - Nausea with vomiting, unspecified SNOMED: 280013542, 417310242 Qualifiers: Qualified Codes: G43.A1 - Cyclical vomiting, intractable (2) Cyclic vomiting syndrome ICD Codes: G43.A0 - Cyclical vomiting, not intractable SNOMED: 33814581 (3) Cannabis abuse ICD Codes: F12.10 - Cannabis abuse, uncomplicated SNOMED: 30912764 (4) Dehydration ICD Codes: E86.0 - Dehydration SNOMED: 05094125 (5) Anxiety ICD Codes: F41.9 - Anxiety disorder, unspecified SNOMED: 82912472 (6) Hypokalemia ICD Codes: E87.6 - Hypokalemia SNOMED: 85672948 (7) Leukocytosis Assessment & Plan: Likely reactive, no e/o infection ICD Codes: D72.829 - Leukocytosis SNOMED: 279670280 Status: stable Assessment/Plan - GI consulted, appreciate rec's - F/u CT a/p--unremarakble - mIVF + KCl - zofran 8mg q6h PRN (check serial EKG to monitor qtc) - Reglan PRN - Ativan IV PRN (valium d/c'd given shortage per pharmacist) - Scopolamine patch - pain control - trend CBC, CHEM - diet now advanced to regular - supportive care - dvt ppx: early ambulation, low risk for dvt- - PPI Possible d/c in 1-2 days if cont to improve and tolerating PO FULL CODE Anticipate pt will require hospitalization for 1-2 days Once stable pt will be discharged home Subjective Date patient seen: Oct 09, 2017 Time patient seen: 20:12 ROS Limited/Unobtainable: No Constitutional: Reports: no symptoms HEENT: Reports: no symptoms Cardiovascular: Reports: no symptoms Respiratory: Reports: no symptoms Gastrointestinal/Abdominal: Reports: abdominal pain, nausea, vomiting Genitourinary: Reports: no symptoms Neurologic/Psychiatric: Reports: no symptoms Endocrine: Reports: no symptoms Hematologic/Lymphatic: Reports: no symptoms Allergies: Coded Allergies: PROCHLORPERAZINE (Verified Allergy, Intermediate, hives on left forearm, ) allergic reaction from pt was admitted to ED on 01/05/17 SULFA (SULFONAMIDE ANTIBIOTICS) (Verified Allergy, Unknown, 02/23/11) All Systems: reviewed and negative except above Subjective No acute o/n events CT a/p done was unremarkable Labs show improvement in WBC and lytes Pt feels slightly better. Tolerating more PO intake but still w/ nausea and some emesis. Abd pain controlled w/ pain meds Denies f/c, chest pain, SOB Objective Last 24 Hour Vital Signs Date Time Temp Pulse Resp B/P (MAP) Pulse Ox O2 Delivery O2 Flow Rate FiO2 10/09/17 16:45 97.4 10/09/17 16:00 97.9 69 18 122/65 97 Room Air 10/09/17 12:00 97.4 70 18 122/63 97 Room Air 10/09/17 08:00 97.9 62 16 105/56 98 Room Air 10/09/17 04:00 98.1 90 18 150/94 99 Room Air Intake and Output 10/09/17 10/10/17 19:00 07:00 Intake Total 800 ml Balance 800 ml Intake Oral 800 ml # Voids 3 Laboratory Tests 10/09/17 05:30: White Blood Count 9.9, Red Blood Count 4.44, Hemoglobin 13.8, Hematocrit 40.6, Mean Corpuscular Volume 92, Mean Corpuscular Hemoglobin 31.2H, Mean Corpuscular Hemoglobin Concent 34.1, Red Cell Distribution Width 12.1, Platelet Count 240, Mean Platelet Volume 6.7, Neutrophils (%) (Auto) 60.5, Lymphocytes (%) (Auto) 31.6, Monocytes (%) (Auto) 6.4, Eosinophils (%) (Auto) 0.6, Basophils (%) (Auto ) 0.9, Sodium Level 138, Potassium Level 3.8, Chloride Level 103, Carbon Dioxide Level 22, Anion Gap 13, Blood Urea Nitrogen 10, Creatinine 0.9, Estimat Glomerular Filtration Rate > 60, Glucose Level 91, Calcium Level 9.1, Magnesium Level 1.7L, Total Bilirubin 0.7, Aspartate Amino Transf (AST/SGOT) 17, Alanine Aminotransferase (ALT/SGPT) 24, Alkaline Phosphatase 49, Total Protein 6.8, Albumin 3.8, Globulin 3.0, Albumin/Globulin Ratio 1.3, Lipase 150 Height (Feet): 5 Height (Inches): 8.00 Weight (Pounds): 130 Objective General Appearance: WD/WN, no apparent distress, alert HEENT: normocephalic, atraumatic, anicteric, mucous membranes moist, PERRL, EOMI, supple, no JVD Respiratory/Chest: chest wall non-tender, lungs clear, normal breath sounds, no respiratory distress, no accessory muscle use Cardiovascular/Chest: normal peripheral pulses, normal rate, regular rhythm, regularly irregular, no gallop/murmur Abdomen: normal bowel sounds, soft, mild TTP of lower abd b/l Skin Exam: normal pigmentation, no diaphoresis 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 Oct 09, 2017 20:13
--- NOTE | 2017-10-09 21:42 | General Progress Note ---
Assessment/Plan Assessment/Plan Assessment - self reported h/o cyclic N/V syndrome - features of CNVS present, but cannot r/o component of cannabis hyperemesis syndrome - appears to be in a Canabis withdrawal state - concerned about frequent dilaudid requests, WBC, TTP - will check CT Recommendations - continue detox from Canabis use - monitor labs - BDZ IV Prn - may benefit from longterm suppression with elavil 25 qhs (after acute attack resolved) - strongly encouraged to d/c cannabis - PPI Subjective Allergies: Coded Allergies: PROCHLORPERAZINE (Verified Allergy, Intermediate, hives on left forearm, ) allergic reaction from pt was admitted to ED on 01/05/17 SULFA (SULFONAMIDE ANTIBIOTICS) (Verified Allergy, Unknown, 02/23/11) Subjective more calm today less Nausea Objective Last 24 Hour Vital Signs Date Time Temp Pulse Resp B/P (MAP) Pulse Ox O2 Delivery O2 Flow Rate FiO2 10/09/17 21:00 97.4 10/09/17 16:00 97.9 69 18 122/65 97 Room Air 10/09/17 12:00 97.4 70 18 122/63 97 Room Air 10/09/17 08:00 97.9 62 16 105/56 98 Room Air 10/09/17 04:00 98.1 90 18 150/94 99 Room Air Intake and Output 10/09/17 10/10/17 19:00 07:00 Intake Total 800 ml Balance 800 ml Intake Oral 800 ml # Voids 3 Laboratory Tests 10/09/17 05:30: White Blood Count 9.9, Red Blood Count 4.44, Hemoglobin 13.8, Hematocrit 40.6, Mean Corpuscular Volume 92, Mean Corpuscular Hemoglobin 31.2H, Mean Corpuscular Hemoglobin Concent 34.1, Red Cell Distribution Width 12.1, Platelet Count 240, Mean Platelet Volume 6.7, Neutrophils (%) (Auto) 60.5, Lymphocytes (%) (Auto) 31.6, Monocytes (%) (Auto) 6.4, Eosinophils (%) (Auto) 0.6, Basophils (%) (Auto ) 0.9, Sodium Level 138, Potassium Level 3.8, Chloride Level 103, Carbon Dioxide Level 22, Anion Gap 13, Blood Urea Nitrogen 10, Creatinine 0.9, Estimat Glomerular Filtration Rate > 60, Glucose Level 91, Calcium Level 9.1, Magnesium Level 1.7L, Total Bilirubin 0.7, Aspartate Amino Transf (AST/SGOT) 17, Alanine Aminotransferase (ALT/SGPT) 24, Alkaline Phosphatase 49, Total Protein 6.8, Albumin 3.8, Globulin 3.0, Albumin/Globulin Ratio 1.3, Lipase 150 Height (Feet): 5 Height (Inches): 8.00 Weight (Pounds): 130 Objective WDWN tearful NCAT supple CTA RRR Abd soft ND mild diffuse TTP no edema MART GUERRERO Oct 09, 2017 21:42
[2017-10-10] VITALS: BP 125/79
[2017-10-10] MEDS: LORazepam Inj 2mg/ml 1ml IV PRN ×2 (00:40→15:23)
[2017-10-10 04:00] VITALS: BP 112/65
[2017-10-10] MEDS: ONDANSETRON IV PRN ×3 (05:29→20:59)
[2017-10-10] MEDS: NS IV PRN ×3 (05:29→20:59)
[2017-10-10] MEDS: HYDROmorphone 1mg/ml Carpuject IVP PRN ×2 (07:45→12:09)
[2017-10-10] MEDS: Pantoprazole Inj IVP SCH (07:45)
[2017-10-10] MEDS: Metoclopramide 10mg/2ml Inj IVP PRN (07:45)
[2017-10-10 08:00] VITALS: BP 106/62
[2017-10-10 09:37] LABS: BASOPHILS % (AUTO) 1.3 % (0.0-2.0); EOSINOPHILS % (AUTO) 0.5 % (0.0-3.0); LYMPHOCYTES % (AUTO) 23.4 % (20.0-45.0); MEAN CORPUSCULAR HEMOGLOBIN 28.5 PG (27.0-31.0); MEAN CORPUSCULAR HGB CONC 30.9 G/DL (32.0-36.0); MEAN CORPUSCULAR VOLUME 92 FL (80-99); MEAN PLATELET VOLUME 5.5 FL (6.5-10.1); MONOCYTES % (AUTO) 5.7 % (1.0-10.0); NEUTROPHILS % (AUTO) 69.1 % (45.0-75.0); PLATELET COUNT 194 K/UL (150-450); RED BLOOD COUNT 4.91 M/UL (4.20-5.40); RED CELL DISTRIBUTION WIDTH 11.2 % (11.6-14.8); WHITE BLOOD COUNT 9.3 K/UL (4.8-10.8)
[2017-10-10] MEDS: NS w/KCl 40mEq 1,000 ML IV SCH (09:38)
[2017-10-10 09:39] LABS: ANION GAP 9 mmol/L (5-15); CALCIUM 9.4 MG/DL (8.5-10.1); CARBON DIOXIDE 24 MMOL/L (21-32); CHLORIDE 102 MMOL/L (98-107); CREATININE 0.9 MG/DL (0.55-1.30); GLOMERULAR FILTRATION RATE > 60 mL/min (>60); POTASSIUM 4.3 MMOL/L (3.5-5.1); SODIUM 135 MMOL/L (136-145)
--- NOTE | 2017-10-10 11:04 | General Progress Note ---
Assessment/Plan Assessment/Plan Assessment - cyclic N/V syndrome - suspect component of cannabis hyperemesis syndrome - appears to be in a Cannabis withdrawal state - anxiety Recommendations - supportive care - monitor labs - BDZ IV Prn - outpatinet elavil 25 qhs - d/c cannabis - PPI Subjective Allergies: Coded Allergies: PROCHLORPERAZINE (Verified Allergy, Intermediate, hives on left forearm, ) allergic reaction from pt was admitted to ED on 01/05/17 SULFA (SULFONAMIDE ANTIBIOTICS) (Verified Allergy, Unknown, 02/23/11) Subjective very anxious today wants dilaudid, since it helps to calm her (+) nausea, but no vomiting on solid po diet Objective Last 24 Hour Vital Signs Date Time Temp Pulse Resp B/P (MAP) Pulse Ox O2 Delivery O2 Flow Rate FiO2 10/10/17 08:15 98.1 10/10/17 08:00 98.1 68 18 106/62 95 Room Air 10/10/17 04:00 98.1 72 17 112/65 97 Room Air 10/10/17 03:09 98.3 10/10/17 00:00 98.3 78 18 125/79 99 Room Air 10/09/17 20:00 98.0 72 18 125/75 99 Room Air 10/09/17 16:00 97.9 69 18 122/65 97 Room Air 10/09/17 12:00 97.4 70 18 122/63 97 Room Air Laboratory Tests 10/10/17 09:10: White Blood Count 9.3, Red Blood Count 4.91, Hemoglobin 14.0, Hematocrit 45.3, Mean Corpuscular Volume 92, Mean Corpuscular Hemoglobin 28.5, Mean Corpuscular Hemoglobin Concent 30.9L, Red Cell Distribution Width 11.2L, Platelet Count 194 , Mean Platelet Volume 5.5L, Neutrophils (%) (Auto) 69.1, Lymphocytes (%) (Auto ) 23.4, Monocytes (%) (Auto) 5.7, Eosinophils (%) (Auto) 0.5, Basophils (%) ( Auto) 1.3, Sodium Level 135L, Potassium Level 4.3, Chloride Level 102, Carbon Dioxide Level 24, Anion Gap 9, Blood Urea Nitrogen 11, Creatinine 0.9, Estimat Glomerular Filtration Rate > 60, Glucose Level 87, Calcium Level 9.4, Magnesium Level 2.0 Height (Feet): 5 Height (Inches): 8.00 Weight (Pounds): 130 Objective WDWN anxious NCAT supple CTA RRR Abd soft ND no edema MART GUERRERO Oct 10, 2017 11:04
[2017-10-10] MEDS: Trimethobenzamide 100mg/ml 2ml vial IM PRN (11:20)
[2017-10-10 12:00] VITALS: BP 141/77
[2017-10-10] MEDS ORDERED: REGLAN10 MG ORAL (14:19)
[2017-10-10] MEDS ORDERED: AMITRIPTYLINE25 MG ORAL (14:21)
[2017-10-10 16:00] VITALS: BP 140/87
[2017-10-10 20:11] VITALS: BP 119/79
[2017-10-10] MEDS ORDERED: D5 1/2NS 1000ml IV ONE (21:14)
[2017-10-10] MEDS ORDERED: Tubing IV Secondary IV ONE (21:14)
--- NOTE | 2017-10-11 09:25 | Discharge Summary ---
Discharge Summary Hospital Course Date of Admission Oct 04, 2017 at 22:50 Date of Discharge Oct 10, 2017 at 21:15 Admitting Diagnosis cyclic vomiting and abdominal pain Reason for Hospitalization: intractable nausea and vomiting with inability to tolerate PO intake HPI 32yo female with pmh of cyclic vomiting syndrome, cannabis abuse and anxiety who presents with nausea and vomiting. She has been admitted to hospital multiple times for similar symptoms thought to be secondary to cyclic vomiting syndrome. Pt was discharged earlier in the day from the ED however returned with worsening symptom. She reports usually going to the hospital every 2-3 months for the same thing. Abd pain 10/10 generalized pain. Unable to keep anything down including diet and PO meds. Denies f/c, d/c, chest pain, SOB, dysuria. Did smoke cannabis. Consultations Gastroenterology, Psychiatry Hospital Course Pt was admitted and seen by GI. She was treated with NPO, IVFs, around the clock nausea and pain medications. Pt with persistent symptoms. She underwent CT a/p which showed no acute pathology. Psychiatry saw patient and she was counseled on cannabis cessation. Pt was slowly resumed on diet with clear liquid which was then advanced to regular on discharge. Prior to d/c, pt was HD stable, tolerating PO and ambulating w/o assistance. Discharge Medications New Medications: Amitriptyline HCl (Elavil*) 25 Mg Tablet 25 MG ORAL BEDTIME for 30 Days, #30 TAB 2 Refills Metoclopramide Hcl* (Reglan*) 10 Mg Tablet 10 MG ORAL THREE TIMES A DAY PRN for 14 Days, #30 TAB 1 Refill nausea/vomiting Continued Medications: Albuterol Sulfate* (Proair Hfa*) 8.5 Gm Hfa.aer.ad 1 PUFF INH Q6H, #8.5 GM 0 Refills Lorazepam* (Ativan*) 1 Mg Tablet 1 MG ORAL Q4HR PRN for Nausea & Vomiting, TAB Ondansetron Hcl* (Zofran*) 8 Mg Tablet 8 MG ORAL Q4HR PRN for Nausea & Vomiting, #4 TAB 0 Refills Ondansetron Odt* (Zofran Odt*) 4 Mg Tab.rapdis 4 MG ORAL Q6H PRN for Nausea & Vomiting, #30 TAB 0 Refills Ondansetron Odt* (Zofran Odt*) 4 Mg Tab.rapdis 4 MG ORAL Q6H PRN for Nausea & Vomiting, #30 TAB 0 Refills Promethazine Hcl (Promethazine Hcl) 25 Mg Supp.rect 25 MG RC Q6HR, #15 SUPP Discharge Condition Upon Discharge: stable Discharge Disposition Patient was discharged to Home (01) Discharge Diagnoses: (1) Intractable nausea and vomiting (2) Cyclic vomiting syndrome (3) Cannabis abuse (4) Dehydration (5) Leukocytosis (6) Hypokalemia (7) Hyponatremia Drew Schmitz M.D. Oct 11, 2017 09:25
== END 2017-10-10 21:15 | disposition home or self-care (01) | DRG 641 ==
LOC: EMR 19:26 → 4E 22:50 → EDBEDREQ 23:05 → 3E 10-06 15:00
DX: E86.0 Dehydration (principal); F41.9 Anxiety disorder, unspecified; G43.A1 Cyclical vomiting, in migraine, intractable; Z88.2 Allergy status to sulfonamides; Z88.8 Allergy status to other drugs, medicaments and biological substances; F12.10 Cannabis abuse, uncomplicated; R10.9 Unspecified abdominal pain
CPT/HCPCS: 36415; 74176; 80048; 80053; 81025; 83690; 83735; 85025; 93005; 99285; J2405; J2765

== ENCOUNTER 2017-11-18 16:18 | Emergency (ER) | payer OTHER, MEDICAID ==
[~2017-11-18] VITALS: Ht 30.5 cm; Wt 0.5 kg
[~2017-11-18 16:18] MED LIST changes: +REGLAN10 MG ORAL
[2017-11-18] MEDS ORDERED: Capsaicin 0.075% Cream TOPIC ONE (16:30)
[2017-11-18] MEDS ORDERED: LORazepam Inj 2mg/ml 1ml IV ONE (16:30)
[2017-11-18 17:29] LABS: ANION GAP 15 mmol/L (5-15); CALCIUM 9.2 MG/DL (8.5-10.1); CARBON DIOXIDE 19 MMOL/L (21-32); CHLORIDE 104 MMOL/L (98-107); CREATININE 0.7 MG/DL (0.55-1.30); GLOMERULAR FILTRATION RATE > 60 mL/min (>60); POTASSIUM 3.4 MMOL/L (3.5-5.1); SODIUM 138 MMOL/L (136-145)
[2017-11-18 17:32] LABS: BASOPHILS % (AUTO) 1.3 % (0.0-2.0); EOSINOPHILS % (AUTO) 0.1 % (0.0-3.0); LYMPHOCYTES % (AUTO) 5.2 % (20.0-45.0); MEAN CORPUSCULAR HEMOGLOBIN 29.2 PG (27.0-31.0); MEAN CORPUSCULAR HGB CONC 31.9 G/DL (32.0-36.0); MEAN CORPUSCULAR VOLUME 92 FL (80-99); MEAN PLATELET VOLUME 6.1 FL (6.5-10.1); MONOCYTES % (AUTO) 12.2 % (1.0-10.0); NEUTROPHILS % (AUTO) 81.2 % (45.0-75.0); PLATELET COUNT 174 K/UL (150-450); RED BLOOD COUNT 4.16 M/UL (4.20-5.40); RED CELL DISTRIBUTION WIDTH 11.8 % (11.6-14.8); WHITE BLOOD COUNT 7.4 K/UL (4.8-10.8)
[2017-11-18 17:33] VITALS: BP 149/83
[2017-11-18 17:33] LABS: ALANINE AMINOTRANSFERASE 21 U/L (12-78); ALBUMIN/GLOBULIN RATIO 1.4 (1.0-2.7); ASPARTATE AMINO TRANSFERASE 23 U/L (15-37); LIPASE 79 U/L (73-393); TOTAL PROTEIN 7.6 G/DL (6.4-8.2)
[2017-11-18] MEDS ORDERED: ZOFRAN ODT4 MG ORAL (18:37)
[2017-11-18 19:05] VITALS: BP 124/61
[2017-11-18 20:48] LABS: APPEARANCE,URINE CLEAR; KETONES,URINE 4+ (NEGATIVE); LEUKOCYTE ESTERASE ,URINE NEGATIVE (NEGATIVE); NITRITE,URINE NEGATIVE (NEGATIVE); PH,URINE 5 (4.5-8.0); PROTEIN,URINE 2+ (NEGATIVE); UROBILINOGEN,URINE NORMAL MG/DL (0.0-1.0)
[2017-11-18 21:13] LABS: BACTERIA,URINE FEW /HPF; SQUAMOUS EPITHELIAL CELL,UR FEW /LPF (NONE/OCC)
--- NOTE | 2017-11-18 21:34 | Emergency Room Report ---
History of Present Illness General Chief Complaint: Vomiting Source: Patient, Medical Record Present Illness HPI 32-year-old female, with a history of diagnosed cyclic vomiting syndrome as by a pharmaceutical worker at [facility], presenting with 2-3 days of nausea and vomiting. About 4-5 episodes of nausea and vomiting, nonbilious nonbloody, per day. Feeling dehydrated. Epigastric pain. No fever no chills no dysuria no hematuria. Patient states that she still uses marijuana Allergies: Coded Allergies: PROCHLORPERAZINE (Verified Allergy, Intermediate, hives on left forearm, ) allergic reaction from pt was admitted to ED on 01/05/17 SULFA (SULFONAMIDE ANTIBIOTICS) (Verified Allergy, Unknown, 02/23/11) Uncoded Allergies: SULFA (Allergy, Unknown, 11/18/17) Patient History Past Medical History: see triage record Past Surgical History: none Pertinent Family History: none Last Menstrual Period: 10/01/17 Reviewed Nursing Documentation: PMH: Agreed, PSxH: Agreed Nursing Documentation-PMH Past Medical History: No History, Except For Hx Hypertension: No Hx Pacemaker: No Hx Asthma: Yes Hx COPD: No Hx Diabetes: No Hx Cancer: No Hx Gastrointestinal Problems: Yes Hx Dialysis: No Hx Neurological Problems: No Hx Cerebrovascular Accident: No Hx Transient Ischemic Attacks: No Hx Dementia: No Hx Alzheimer's Disease: No Hx Parkinson's Disease: No Hx Meningitis: No Hx Encephalitis: No Hx Seizures: No Hx Epilepsy: No Hx Multiple Sclerosis: No Hx Cerebral Palsy: No Hx Amyotrophic Lat Sclerosis: No Hx Guillian-[place] Syndrome: No Hx Paralysis: No Hx Peripheral Neuropathy: No Hx Spinal Cord Injury: No Hx Head Trauma: No Hx Traumatic Brain Injury: No Hx Memory Loss: No Hx Concentration Difficulty: No Hx Speech Problem: No Hx Tremors: No Hx Vertigo: No Hx Dizziness: No Hx Syncope: No Hx Headaches: No Hx Aphasia: No Hx Dysphasia: No Hx Numbness: No Hx Weakness: No Hx Fatigue: No Hx Neurologic Surgery: No Hx Brain Shunt: No Review of Systems All Other Systems: negative except mentioned in HPI Physical Exam Vital Signs Date Time Temp Pulse Resp B/P (MAP) Pulse Ox O2 Delivery O2 Flow Rate FiO2 11/18/17 16:16 99.1 123 20 143/71 97 Room Air Sp02 EP Interpretation: reviewed, normal General Appearance: alert, GCS 15, non-toxic, mild distress Head: normocephalic, atraumatic Eyes: bilateral eye normal inspection, bilateral eye PERRL, bilateral eye EOMI ENT: normal ENT inspection, normal pharynx, normal voice, moist mucus membranes Neck: normal inspection, full range of motion, supple Respiratory: normal inspection, lungs clear, normal breath sounds, no respiratory distress, no retraction, no wheezing, speaking full sentences, chest symmetrical Cardiovascular #1: normal inspection, regular rate, rhythm, no edema, normal capillary refill Cardiovascular #2: 2+ radial (R), 2+ radial (L) Gastrointestinal: normal inspection, non tender, soft, non-distended, no guarding Musculoskeletal: normal inspection, back normal, normal range of motion, non- tender Neurologic: normal inspection, alert, oriented x3, responsive, motor strength/ tone normal, sensory intact, normal gait, speech normal Psychiatric: normal inspection, judgement/insight normal, memory normal Skin: normal inspection, normal color, no rash, warm/dry, well hydrated, normal turgor Medical Decision Making Diagnostic Impression: Primary Impression: Cyclic vomiting syndrome ER Course 32-year-old female, cyclic vomiting syndrome, presents with nausea and vomiting Differential Diagnosis: Likely cyclic vomiting secondary to marijuana use Versus Gastritis, gastroenteritis, cholecystitis, appendicitis, diverticulitis, SBO, mesenteric ischemia, cardiac, UTI/pyelo At this time abdomen is soft nontender, not likely to have acute intra- abdominal surgical pathology, will hold CT for now. Plan: Basic labs, ua Pepcid, maalox, pain control, IVF ER course: Patient has remained stable during ED stay. Slept for >2 1-2 hours, NAD Pain improved. Repeat abdominal exam is nontender. Tolerating PO, ambulating around ED appears well, will dc home Disposition: Patient is to be discharged to home. Prescriptions given are zofran Patient is instructed to follow up with their pharmaceutical worker within 5 days. Strict return precautions discussed with patient such as fever, chills, worsening/severe abdominal pain, nausea, vomiting, black or bloody stools, which may indicate severe illness. Patient verbalizes understanding and agrees with plan. Please note that this Emergency Department Report was dictated using Geosignblade balancer technology software, occasionally this can lead to erroneous entry secondary to interpretation by the dictation equipment labs unremarkable, except positive for MJ Last Vital Signs Date Time Temp Pulse Resp B/P (MAP) Pulse Ox O2 Delivery O2 Flow Rate FiO2 11/18/17 19:05 119 22 124/61 96 Room Air 11/18/17 16:16 99.1 Disposition: HOME, SELF-CARE Condition: Improved Scripts Ondansetron Odt* (ZOFRAN ODT*) 4 Mg Tab.rapdis 4 MG ORAL Q6H Y for Nausea & Vomiting, #15 TAB 0 Refills Prov: Jeremiah Arzola M.D. 11/18/17 Referrals: NOT CHOSEN [facility]/,REFERRING (PCP) Patient Instructions: Nausea and Vomiting, Adult Jeremiah Arzola M.D. Nov 18, 2017 21:34
[2017-11-18 22:00] VITALS: BP 113/56
[2017-11-18 22:18] VITALS: BP 113/56
== END 2017-11-18 22:18 | disposition home or self-care (01) ==
LOC: EDBD 16:18 → EMR 16:35
DX: G43.A0 Cyclical vomiting, in migraine, not intractable (principal); Z88.2 Allergy status to sulfonamides; J45.909 Unspecified asthma, uncomplicated
CPT/HCPCS: 36415; 80053; 80307; 81003; 81025; 83690; 85025; 96361; 96374; 96375; 99284; J2405; S0028

== ENCOUNTER 2017-11-20 07:06 | Emergency (ER) | payer OTHER, MEDICAID ==
[~2017-11-20] VITALS: Ht 172.7 cm; Wt 59.0 kg
[2017-11-20] MEDS ORDERED: Capsaicin 0.075% Cream TOPIC ONE (07:45)
[2017-11-20] MEDS ORDERED: Pantoprazole Inj IV ONE (08:00)
[2017-11-20 08:19] LABS: APPEARANCE,URINE SLIGHTLY CLOUDY; KETONES,URINE 4+ (NEGATIVE); LEUKOCYTE ESTERASE ,URINE NEGATIVE (NEGATIVE); NITRITE,URINE NEGATIVE (NEGATIVE); PH,URINE 6 (4.5-8.0); PROTEIN,URINE 2+ (NEGATIVE); UROBILINOGEN,URINE NORMAL MG/DL (0.0-1.0)
[2017-11-20 08:38] LABS: BASOPHILS % (AUTO) 3.1 % (0.0-2.0); EOSINOPHILS % (AUTO) 0.1 % (0.0-3.0); MEAN CORPUSCULAR HEMOGLOBIN 29.4 PG (27.0-31.0); MEAN CORPUSCULAR HGB CONC 32.8 G/DL (32.0-36.0); MEAN CORPUSCULAR VOLUME 90 FL (80-99); MEAN PLATELET VOLUME 6.4 FL (6.5-10.1); MONOCYTES % (AUTO) 17.3 % (1.0-10.0); NEUTROPHILS % (AUTO) 58.6 % (45.0-75.0); PLATELET COUNT 145 K/UL (150-450); RED CELL DISTRIBUTION WIDTH 11.5 % (11.6-14.8); WHITE BLOOD COUNT 4.6 K/UL (4.8-10.8)
[2017-11-20 08:41] LABS: ANION GAP 15 mmol/L (5-15); CALCIUM 9.4 MG/DL (8.5-10.1); CARBON DIOXIDE 21 MMOL/L (21-32); CHLORIDE 101 MMOL/L (98-107); CREATININE 0.8 MG/DL (0.55-1.30); GLOMERULAR FILTRATION RATE > 60 mL/min (>60); POTASSIUM 3.8 MMOL/L (3.5-5.1); SODIUM 137 MMOL/L (136-145)
[2017-11-20 08:45] LABS: ALANINE AMINOTRANSFERASE 24 U/L (12-78); ALBUMIN/GLOBULIN RATIO 1.1 (1.0-2.7); ASPARTATE AMINO TRANSFERASE 41 U/L (15-37); LIPASE 138 U/L (73-393); TOTAL PROTEIN 8.1 G/DL (6.4-8.2)
[2017-11-20 08:48] LABS: BACTERIA,URINE FEW /HPF; MUCUS,URINE MODERATE /LPF (NONE/OCC); SQUAMOUS EPITHELIAL CELL,UR FEW /LPF (NONE/OCC); WBC,URINE 0-2 /HPF (0 - 2)
--- NOTE | 2017-11-20 08:52 | Emergency Room Report ---
History of Present Illness General Chief Complaint: Nausea, Vomiting, and Diarrhea Source: Patient Present Illness HPI This patient has a history of cyclic vomiting syndrome. She states that 3 days ago she developed a sore throat, bodyaches and congestion and consistent with the flu. She states that she believes this triggered her cyclic vomiting syndrome. She states she has been vomiting for the past 3 days. She has been unable to keep down her Zofran or Ativan. She states that she has not heavily using marijuana. However, she has used marijuana for many years but states she is "titrating off of it." She denies neck pain or headache. She denies abdominal pain. She is requesting Ativan. She has no other complaints. Allergies: Coded Allergies: PROCHLORPERAZINE (Verified Allergy, Intermediate, hives on left forearm, ) allergic reaction from pt was admitted to ED on 01/05/17 SULFA (SULFONAMIDE ANTIBIOTICS) (Verified Allergy, Unknown, 02/23/11) Uncoded Allergies: SULFA (Allergy, Unknown, 11/18/17) Patient History Past Medical History: see triage record, psych hx, other - cyclic vomiting syndrome Social History: Reports: drug use, Denies: smoking, alcohol use Last Menstrual Period: 10/2017 Now: No Reviewed Nursing Documentation: PMH: Agreed, PSxH: Agreed Nursing Documentation-PMH Past Medical History: No History, Except For Hx Cardiac Problems: No - Cyclic vomitting syndrome Hx Hypertension: No Hx Pacemaker: No Hx Asthma: Yes Hx COPD: No Hx Diabetes: No Hx Cancer: No Hx Gastrointestinal Problems: Yes Hx Dialysis: No History Of Psychiatric Problem: No Hx Neurological Problems: No Hx Cerebrovascular Accident: No Hx Transient Ischemic Attacks: No Hx Dementia: No Hx Alzheimer's Disease: No Hx Parkinson's Disease: No Hx Meningitis: No Hx Encephalitis: No Hx Seizures: No Hx Epilepsy: No Hx Multiple Sclerosis: No Hx Cerebral Palsy: No Hx Amyotrophic Lat Sclerosis: No Hx Guillian-[place] Syndrome: No Hx Paralysis: No Hx Peripheral Neuropathy: No Hx Spinal Cord Injury: No Hx Head Trauma: No Hx Traumatic Brain Injury: No Hx Memory Loss: No Hx Concentration Difficulty: No Hx Speech Problem: No Hx Tremors: No Hx Vertigo: No Hx Dizziness: No Hx Syncope: No Hx Headaches: No Hx Aphasia: No Hx Dysphasia: No Hx Numbness: No Hx Weakness: No Hx Fatigue: No Hx Neurologic Surgery: No Hx Brain Shunt: No Review of Systems All Other Systems: negative except mentioned in HPI Physical Exam Vital Signs Date Time Temp Pulse Resp B/P (MAP) Pulse Ox O2 Delivery O2 Flow Rate FiO2 11/20/17 07:14 97.9 114 20 152/91 96 Room Air Sp02 EP Interpretation: reviewed, normal General Appearance: no apparent distress, alert, GCS 15, non-toxic, other - Actively vomiting Head: normocephalic, atraumatic Eyes: bilateral eye normal inspection, bilateral eye PERRL ENT: hearing grossly normal, normal pharynx, no angioedema, normal voice Neck: full range of motion, supple/symm/no masses Respiratory: chest non-tender, lungs clear, normal breath sounds, speaking full sentences Cardiovascular #1: regular rate, rhythm, no edema Gastrointestinal: normal bowel sounds, non tender, soft, non-distended, no guarding, no rebound Rectal: deferred Musculoskeletal: back normal, gait/station normal, normal range of motion, non- tender Neurologic: alert, oriented x3, responsive, motor strength/tone normal, sensory intact, speech normal Psychiatric: judgement/insight normal, memory normal, mood/affect normal, no suicidal/homicidal ideation Skin: normal color, no rash, warm/dry, well hydrated Medical Decision Making Diagnostic Impression: Primary Impression: Cyclic vomiting syndrome Additional Impression: Cannabis abuse ER Course This patient has a known history of cyclic vomiting syndrome. She also has a history of prolonged cannabis abuse. She states that she is "titrating" her use off. I suspect she has hyperemesis related to cannabis. I did give the patient IV fluids, Zofran and IM Haldol. She had significant improvement and had no further vomiting. I educated the patient that the only way to stop the hyperemesis is to stop using cannabis entirely. Laboratory workup to include CBC, CMP and urinalysis are noncontributory. The patient has home Zofran and Ativan to self treat. No emergency medical conditions identified. She was given return precautions and followup instructions. Laboratory Tests Test 11/20/17 07:40 11/20/17 08:20 Urine Color Yellow Urine Appearance Slightly cloudy Urine pH 6 (4.5-8.0) Urine Specific [place] 1.025 (1.005-1.035) Urine Protein 2+ (NEGATIVE) H Urine Glucose (UA) Negative (NEGATIVE) Urine Ketones 4+ (NEGATIVE) H Urine Occult Blood 2+ (NEGATIVE) H Urine Nitrite Negative (NEGATIVE) Urine Bilirubin Negative (NEGATIVE) Urine Urobilinogen Normal MG/DL (0.0-1.0) Urine Leukocyte Esterase Negative (NEGATIVE) Urine RBC 2-4 /HPF (0 - 2) H Urine WBC 0-2 /HPF (0 - 2) Urine Squamous Epithelial Cells Few /LPF (NONE/OCC) Urine Bacteria Few /HPF (NONE) Urine Mucus Moderate /LPF (NONE/OCC) H Urine HCG, Qualitative Negative White Blood Count 4.6 K/UL (4.8-10.8) L Red Blood Count 5.10 M/UL (4.20-5.40) Hemoglobin 15.0 G/DL (12.0-16.0) Hematocrit 45.7 % (37.0-47.0) Mean Corpuscular Volume 90 FL (80-99) Mean Corpuscular Hemoglobin 29.4 PG (27.0-31.0) Mean Corpuscular Hemoglobin Concent 32.8 G/DL (32.0-36.0) Red Cell Distribution Width 11.5 % (11.6-14.8) L Platelet Count 145 K/UL (150-450) L Mean Platelet Volume 6.4 FL (6.5-10.1) L Neutrophils (%) (Auto) 58.6 % (45.0-75.0) Lymphocytes (%) (Auto) 21.0 % (20.0-45.0) Monocytes (%) (Auto) 17.3 % (1.0-10.0) H Eosinophils (%) (Auto) 0.1 % (0.0-3.0) Basophils (%) (Auto) 3.1 % (0.0-2.0) H Sodium Level 137 MMOL/L (136-145) Potassium Level 3.8 MMOL/L (3.5-5.1) Chloride Level 101 MMOL/L (98-107) Carbon Dioxide Level 21 MMOL/L (21-32) Anion Gap 15 mmol/L (5-15) Blood Urea Nitrogen 16 mg/dL (7-18) Creatinine 0.8 MG/DL (0.55-1.30) Estimate Glomerular Filtration Rate > 60 mL/min (>60) Glucose Level 119 MG/DL (74-106) H Calcium Level 9.4 MG/DL (8.5-10.1) Total Bilirubin 0.5 MG/DL (0.2-1.0) Aspartate Amino Transferase (AST) 41 U/L (15-37) H Alanine Aminotransferase (ALT) 24 U/L (12-78) Alkaline Phosphatase 54 U/L (46-116) Total Protein 8.1 G/DL (6.4-8.2) Albumin 4.2 G/DL (3.4-5.0) Globulin 3.9 g/dL Albumin/Globulin Ratio 1.1 (1.0-2.7) Lipase 138 U/L (73-393) Urine Opiates Screen Negative (NEGATIVE) Urine Barbiturates Screen Negative (NEGATIVE) Phencyclidine (PCP) Screen Negative (NEGATIVE) Urine Amphetamines Screen Negative (NEGATIVE) Urine Benzodiazepines Screen Negative (NEGATIVE) Urine Cocaine Screen Negative (NEGATIVE) Urine Marijuana (THC) Screen Positive (NEGATIVE) H Microbiology Date/Time Source Procedure Growth Status 11/20/17 08:20 Nasal Nares Influenza Types A,B Antigen (HALIE) - Final Complete Last Vital Signs Date Time Temp Pulse Resp B/P (MAP) Pulse Ox O2 Delivery O2 Flow Rate FiO2 11/20/17 07:14 97.9 114 20 152/91 96 Room Air Status: improved Disposition: HOME, SELF-CARE Referrals: NOT CHOSEN EVITA/,REFERRING (PCP) GALE ALEJANDRA D.O. Nov 20, 2017 08:52
[2017-11-20] MEDS ORDERED: Haloperidol 5mg/ml Inj IM ONE (09:15)
[2017-11-20 12:31] VITALS: BP 124/71
== END 2017-11-20 12:31 | disposition home or self-care (01) ==
LOC: EMR 07:46
DX: G43.A0 Cyclical vomiting, in migraine, not intractable (principal); F12.10 Cannabis abuse, uncomplicated; Z88.2 Allergy status to sulfonamides; J45.909 Unspecified asthma, uncomplicated
CPT/HCPCS: 36415; 80053; 80307; 81003; 81025; 83690; 85025; 86710; 96361; 96372; 96374; 96375; 99284; C9113; J1630; J2405

== ENCOUNTER 2018-02-03 17:18 | Emergency (ER) | payer OTHER, MEDICAID ==
[~2018-02-03] VITALS: Ht 165.1 cm; Wt 54.4 kg
[2018-02-03] MEDS ORDERED: Haloperidol 5mg/ml Inj IM ONE (17:30)
[2018-02-03 18:23] LABS: HEMATOCRIT 40.6 % (37.0-47.0); HEMOGLOBIN 13.9 G/DL (12.0-16.0); MEAN CORPUSCULAR VOLUME 89 FL (80-99); PLATELET COUNT 229 K/UL (150-450); RED BLOOD COUNT 4.57 M/UL (4.20-5.40); RED CELL DISTRIBUTION WIDTH 10.9 % (11.6-14.8); WHITE BLOOD COUNT 14.1 K/UL (4.8-10.8)
[2018-02-03 18:24] LABS: APPEARANCE,URINE CLEAR; BILIRUBIN, URINE NEGATIVE (NEGATIVE); COLOR,URINE PALE YELLOW; GLUCOSE, URINE (UA) 2+ (NEGATIVE); KETONES,URINE 4+ (NEGATIVE); LEUKOCYTE ESTERASE ,URINE NEGATIVE (NEGATIVE); NITRITE,URINE NEGATIVE (NEGATIVE); PH,URINE 6 (4.5-8.0); PROTEIN,URINE 2+ (NEGATIVE); UROBILINOGEN,URINE NORMAL MG/DL (0.0-1.0)
[2018-02-03 18:30] LABS: ANION GAP 18 mmol/L (5-15); BLOOD UREA NITROGEN 9 mg/dL (7-18); CALCIUM 9.7 MG/DL (8.5-10.1); CARBON DIOXIDE 19 MMOL/L (21-32); CHLORIDE 103 MMOL/L (98-107); CREATININE 0.7 MG/DL (0.55-1.30); POTASSIUM 3.5 MMOL/L (3.5-5.1); SODIUM 140 MMOL/L (136-145)
[2018-02-03] MEDS ORDERED: ZOFRAN ODT4 MG ORAL (18:30)
[2018-02-03 18:35] LABS: ALANINE AMINOTRANSFERASE 23 U/L (12-78); ALBUMIN 4.5 G/DL (3.4-5.0); ALBUMIN/GLOBULIN RATIO 1.4 (1.0-2.7); ALKALINE PHOSPHATASE 53 U/L (46-116); ASPARTATE AMINO TRANSFERASE 23 U/L (15-37); BILIRUBIN,TOTAL 0.4 MG/DL (0.2-1.0)
--- NOTE | 2018-02-03 19:16 | Emergency Room Report ---
History of Present Illness General Chief Complaint: Nausea Source: Patient Present Illness HPI 32-year-old female, history of prolonged marijuana use, history cyclic vomiting syndrome, p/w nausea vomiting for one day Pt reports n/v, >5 episodes of nbnb vomiting no diarrhea Denies fever, chills. No hx of abdominal surgeries. Patient states that she has seen a tape deck installer in the past, was diagnosed with cyclic vomiting syndrome Allergies: Coded Allergies: PROCHLORPERAZINE (Verified Allergy, Intermediate, hives on left forearm, ) allergic reaction from pt was admitted to ED on 01/05/17 SULFA (SULFONAMIDE ANTIBIOTICS) (Verified Allergy, Unknown, 02/23/11) Uncoded Allergies: SULFA (Allergy, Unknown, 11/18/17) Patient History Past Medical History: see triage record Past Surgical History: none Pertinent Family History: none Now: No Reviewed Nursing Documentation: PMH: Agreed, PSxH: Agreed Nursing Documentation-PMH Hx Cardiac Problems: No - Cyclic vomitting syndrome Hx Hypertension: No Hx Pacemaker: No Hx Asthma: Yes Hx COPD: No Hx Diabetes: No Hx Cancer: No Hx Gastrointestinal Problems: Yes Hx Dialysis: No Hx Neurological Problems: No Hx Cerebrovascular Accident: No Hx Transient Ischemic Attacks: No Hx Dementia: No Hx Alzheimer's Disease: No Hx Parkinson's Disease: No Hx Meningitis: No Hx Encephalitis: No Hx Seizures: No Hx Epilepsy: No Hx Multiple Sclerosis: No Hx Cerebral Palsy: No Hx Amyotrophic Lat Sclerosis: No Hx Guillian-[place] Syndrome: No Hx Paralysis: No Hx Peripheral Neuropathy: No Hx Spinal Cord Injury: No Hx Head Trauma: No Hx Traumatic Brain Injury: No Hx Memory Loss: No Hx Concentration Difficulty: No Hx Speech Problem: No Hx Tremors: No Hx Vertigo: No Hx Dizziness: No Hx Syncope: No Hx Headaches: No Hx Aphasia: No Hx Dysphasia: No Hx Numbness: No Hx Weakness: No Hx Fatigue: No Hx Neurologic Surgery: No Hx Brain Shunt: No Review of Systems All Other Systems: negative except mentioned in HPI Physical Exam Vital Signs Date Time Temp Pulse Resp B/P (MAP) Pulse Ox O2 Delivery O2 Flow Rate FiO2 02/03/18 17:20 97.8 110 20 140/80 98 Room Air 97.9 Sp02 EP Interpretation: reviewed, normal General Appearance: alert, GCS 15, moderate distress Head: normocephalic, atraumatic Eyes: bilateral eye normal inspection, bilateral eye PERRL, bilateral eye EOMI ENT: normal ENT inspection, normal pharynx, normal voice, moist mucus membranes Neck: normal inspection, full range of motion, supple Respiratory: normal inspection, lungs clear, normal breath sounds, no respiratory distress, no retraction, no wheezing, speaking full sentences, chest symmetrical Cardiovascular #1: normal inspection, regular rate, rhythm, no edema, normal capillary refill Cardiovascular #2: 2+ radial (R), 2+ radial (L) Gastrointestinal: other - Abdomen is very soft nontender throughout, no guarding no rigidity, normal bowel sounds Musculoskeletal: normal inspection, back normal, normal range of motion, non- tender Neurologic: normal inspection, alert, oriented x3, responsive, motor strength/ tone normal, sensory intact, normal gait, speech normal Psychiatric: normal inspection, judgement/insight normal, memory normal Skin: normal inspection, normal color, no rash, warm/dry, well hydrated, normal turgor Medical Decision Making Diagnostic Impression: Primary Impression: Nausea and vomiting in adult patient Additional Impression: Cyclic vomiting syndrome ER Course 32-year-old female with nausea vomiting Differential Diagnosis: Gastritis, gastroenteritis, , UTI Cyclic vomiting syndrome secondary to prolonged marijuana use Abdomen is soft nontender throughout no concern with any acute intra-abdominal surgical pathology Plan: Basic labs, ua Pepcid, maalox, pain control, IVF ER course: Patient has remained stable during ED stay. Given fluids, Zofran, Haldol, no further episodes of vomiting during ED stay. Disposition: Patient is to be discharged to home. Followup with tape deck installer Strict return precautions discussed with patient such as fever, chills, worsening/severe abdominal pain, nausea, vomiting, black or bloody stools, which may indicate severe illness. Patient verbalizes understanding and agrees with plan. Please note that this Emergency Department Report was dictated using [employer] pinion adjuster technology software, occasionally this can lead to erroneous entry secondary to interpretation by the dictation equipment Last Vital Signs Date Time Temp Pulse Resp B/P (MAP) Pulse Ox O2 Delivery O2 Flow Rate FiO2 02/03/18 17:20 97.8 110 20 140/80 98 Room Air 97.9 Disposition: HOME, SELF-CARE Condition: Improved Scripts Ondansetron Odt* (ZOFRAN ODT*) 4 Mg Tab.rapdis 4 MG ORAL Q6H Y for Nausea & Vomiting, #30 TAB 0 Refills Prov: Jeremiah Arzola M.D. 02/03/18 Referrals: NOT CHOSEN [facility]/,REFERRING (PCP) Patient Instructions: Nausea and Vomiting, Adult Additional Instructions: please follow up with gastroenterology Jeremiah Arzola M.D. Feb 03, 2018 19:16
[2018-02-03 19:34] VITALS: BP 140/80
[2018-02-04] MEDS ORDERED: ZOFRAN ODT4 MG ORAL (10:31)
== END 2018-02-03 19:58 | disposition home or self-care (01) ==
LOC: EDBD 17:18 → EMR 18:06
DX: G43.A0 Cyclical vomiting, in migraine, not intractable (principal); Z88.2 Allergy status to sulfonamides; J45.909 Unspecified asthma, uncomplicated
CPT/HCPCS: 36415; 80053; 81003; 81025; 83690; 85007; 85025; 87086; 96372; 96374; 96375; 99284; J1630; J2405; S0028

== ENCOUNTER 2018-02-04 07:51 | Emergency (ER) | payer OTHER, MEDICAID ==
[~2018-02-04] VITALS: Ht 172.7 cm; Wt 61.2 kg
[2018-02-04 08:07] VITALS: BP 164/99
--- NOTE | 2018-02-04 08:39 | Emergency Room Report ---
History of Present Illness General Chief Complaint: Vomiting Source: Patient, Medical Record Present Illness HPI Patient is a 32-year-old female presented after increased nausea and vomiting. Patient had prior history of cyclic vomiting syndrome. Patient had recently been seen for similar symptoms. She had multiple episodes of vomiting reportedly. Patient states that she had stopped using marijuana. She reports having increased generalized body pain. She states she has not been able to tolerate her Zofran as well as her other medications for anxiety. Allergies: Coded Allergies: PROCHLORPERAZINE (Verified Allergy, Intermediate, hives on left forearm, ) allergic reaction from pt was admitted to ED on 01/05/17 SULFA (SULFONAMIDE ANTIBIOTICS) (Verified Allergy, Unknown, 02/23/11) Uncoded Allergies: SULFA (Allergy, Unknown, 11/18/17) Patient History Past Medical History: see triage record, old chart reviewed Last Menstrual Period: 01/21/18 Reviewed Nursing Documentation: PMH: Agreed, PSxH: Agreed Nursing Documentation-PMH Past Medical History: No History, Except For Hx Cardiac Problems: No - Cyclic vomitting syndrome Hx Hypertension: No Hx Pacemaker: No Hx Asthma: Yes Hx COPD: No Hx Diabetes: No Hx Cancer: No Hx Gastrointestinal Problems: Yes Hx Dialysis: No Hx Neurological Problems: No Hx Cerebrovascular Accident: No Hx Transient Ischemic Attacks: No Hx Dementia: No Hx Alzheimer's Disease: No Hx Parkinson's Disease: No Hx Meningitis: No Hx Encephalitis: No Hx Seizures: No Hx Epilepsy: No Hx Multiple Sclerosis: No Hx Cerebral Palsy: No Hx Amyotrophic Lat Sclerosis: No Hx Guillian-[place] Syndrome: No Hx Paralysis: No Hx Peripheral Neuropathy: No Hx Spinal Cord Injury: No Hx Head Trauma: No Hx Traumatic Brain Injury: No Hx Memory Loss: No Hx Concentration Difficulty: No Hx Speech Problem: No Hx Tremors: No Hx Vertigo: No Hx Dizziness: No Hx Syncope: No Hx Headaches: No Hx Aphasia: No Hx Dysphasia: No Hx Numbness: No Hx Weakness: No Hx Fatigue: No Hx Neurologic Surgery: No Hx Brain Shunt: No Review of Systems All Other Systems: negative except mentioned in HPI Physical Exam Vital Signs Date Time Temp Pulse Resp B/P (MAP) Pulse Ox O2 Delivery O2 Flow Rate FiO2 02/04/18 07:57 97.9 73 24 164/99 97 Room Air 97.9 Sp02 EP Interpretation: reviewed, normal General Appearance: normal inspection, well appearing, no apparent distress, alert, GCS 15 Head: atraumatic ENT: normal ENT inspection, hearing grossly normal, normal voice Neck: normal inspection, full range of motion, supple, no bony tend Respiratory: normal inspection, lungs clear, normal breath sounds, no respiratory distress, no retraction, no wheezing Cardiovascular #1: regular rate, rhythm, no edema Gastrointestinal: normal inspection, normal bowel sounds, non tender, soft, no guarding, no hernia Genitourinary: no CVA tenderness Musculoskeletal: normal inspection, back normal, normal range of motion Neurologic: normal inspection, alert, oriented x3, responsive, corn grower III-XII nml as tested, speech normal Psychiatric: normal inspection, judgement/insight normal, mood/affect normal Skin: normal inspection, normal color, no rash Medical Decision Making Diagnostic Impression: Primary Impression: Abdominal pain Additional Impression: Cyclic vomiting syndrome ER Course Patient presented for abdominal pain. Differential diagnoses included ischemic bowel, appendicitis, perforated viscus, abdominal aortic aneurysm, inferior myocardial infarction, viral gastroenteritis Because of complexity of patient's case laboratory testing and imaging studies were ordered.Patient was given IM Haldol as well as IV Zofran with improvement in her nausea. Patient was able to tolerate by mouth fluids. Laboratory testing was unremarkable. Patient was noted to have some improvement. Patient will be discharged home and advised to follow-up with her primary care physician for reevaluation.The patient is advised to follow up with primary care doctor in 1-2 days. Patient is advised to return if any worsening condition or if any changes in status that are concerning. This report is dictated with [employer] detonator assembler software which may occasionally lead to discrepancies related to use of this software. Labs Test 02/04/18 08:56 White Blood Count 13.8 K/UL (4.8-10.8) Red Blood Count 4.37 M/UL (4.20-5.40) Hemoglobin 13.5 G/DL (12.0-16.0) Hematocrit 38.8 % (37.0-47.0) Mean Corpuscular Volume 89 FL (80-99) Mean Corpuscular Hemoglobin 30.8 PG (27.0-31.0) Mean Corpuscular Hemoglobin Concent 34.7 G/DL (32.0-36.0) Red Cell Distribution Width 11.1 % (11.6-14.8) Platelet Count 215 K/UL (150-450) Mean Platelet Volume 6.0 FL (6.5-10.1) Neutrophils (%) (Auto) 83.2 % (45.0-75.0) Lymphocytes (%) (Auto) 10.7 % (20.0-45.0) Monocytes (%) (Auto) 5.8 % (1.0-10.0) Eosinophils (%) (Auto) 0.0 % (0.0-3.0) Basophils (%) (Auto) 0.4 % (0.0-2.0) Sodium Level 138 MMOL/L (136-145) Potassium Level 3.6 MMOL/L (3.5-5.1) Chloride Level 102 MMOL/L (98-107) Carbon Dioxide Level 24 MMOL/L (21-32) Anion Gap 12 mmol/L (5-15) Blood Urea Nitrogen 10 mg/dL (7-18) Creatinine 0.7 MG/DL (0.55-1.30) Estimat Glomerular Filtration Rate > 60 mL/min (>60) Glucose Level 139 MG/DL (74-106) Calcium Level 9.6 MG/DL (8.5-10.1) Total Bilirubin 0.5 MG/DL (0.2-1.0) Aspartate Amino Transf (AST/SGOT) 28 U/L (15-37) Alanine Aminotransferase (ALT/SGPT) 25 U/L (12-78) Alkaline Phosphatase 52 U/L (46-116) Total Protein 7.6 G/DL (6.4-8.2) Albumin 4.3 G/DL (3.4-5.0) Globulin 3.3 g/dL Albumin/Globulin Ratio 1.3 (1.0-2.7) Lipase 128 U/L (73-393) Last Vital Signs Date Time Temp Pulse Resp B/P (MAP) Pulse Ox O2 Delivery O2 Flow Rate FiO2 02/04/18 08:07 73 24 164/99 97 Room Air 02/04/18 07:57 97.9 97.9 Status: improved Disposition: HOME, SELF-CARE Condition: Stable Scripts Ondansetron Odt* (ZOFRAN ODT*) 4 Mg Tab.rapdis 4 MG ORAL Q8H Y for Nausea & Vomiting, #30 TAB 0 Refills Prov: Sj Hill 02/04/18 Sj Hill Feb 04, 2018 08:39
[2018-02-04] MEDS ORDERED: Haloperidol 5mg/ml Inj IM ONE (08:45)
[2018-02-04 09:23] LABS: ANION GAP 12 mmol/L (5-15); BLOOD UREA NITROGEN 10 mg/dL (7-18); CALCIUM 9.6 MG/DL (8.5-10.1); CARBON DIOXIDE 24 MMOL/L (21-32); CHLORIDE 102 MMOL/L (98-107); CREATININE 0.7 MG/DL (0.55-1.30); POTASSIUM 3.6 MMOL/L (3.5-5.1); SODIUM 138 MMOL/L (136-145)
[2018-02-04 09:27] LABS: ALANINE AMINOTRANSFERASE 25 U/L (12-78); ALBUMIN 4.3 G/DL (3.4-5.0); ALBUMIN/GLOBULIN RATIO 1.3 (1.0-2.7); ALKALINE PHOSPHATASE 52 U/L (46-116); ASPARTATE AMINO TRANSFERASE 28 U/L (15-37); BILIRUBIN,TOTAL 0.5 MG/DL (0.2-1.0)
[2018-02-04 09:44] LABS: BASOPHILS % (AUTO) 0.4 % (0.0-2.0); HEMATOCRIT 38.8 % (37.0-47.0); HEMOGLOBIN 13.5 G/DL (12.0-16.0); LYMPHOCYTES % (AUTO) 10.7 % (20.0-45.0); MEAN CORPUSCULAR VOLUME 89 FL (80-99); MONOCYTES % (AUTO) 5.8 % (1.0-10.0); NEUTROPHILS % (AUTO) 83.2 % (45.0-75.0); PLATELET COUNT 215 K/UL (150-450); RED BLOOD COUNT 4.37 M/UL (4.20-5.40); RED CELL DISTRIBUTION WIDTH 11.1 % (11.6-14.8); WHITE BLOOD COUNT 13.8 K/UL (4.8-10.8)
[2018-02-04] MEDS ORDERED: ZOFRAN ODT4 MG ORAL (10:31)
[2018-02-04 10:47] VITALS: BP 164/99
== END 2018-02-04 10:47 | disposition home or self-care (01) ==
LOC: EMR 09:42
DX: G43.A0 Cyclical vomiting, in migraine, not intractable (principal); R10.9 Unspecified abdominal pain; J45.909 Unspecified asthma, uncomplicated; Z88.2 Allergy status to sulfonamides; Z88.8 Allergy status to other drugs, medicaments and biological substances; F41.9 Anxiety disorder, unspecified
CPT/HCPCS: 36415; 80053; 83690; 85025; 96361; 96372; 96374; 96375; 99284; J1630; J2405; S0028

== ENCOUNTER 2018-03-28 07:05 | Inpatient (IN) | payer OTHER, MEDICAID ==
[~2018-03-28] VITALS: Ht 177.8 cm; Wt 59.0 kg
[2018-03-28 07:30] VITALS: BP 142/71
[2018-03-28] MEDS ORDERED: LORazepam Inj 2mg/ml 1ml IV ONE ×2 (07:45→10:15)
[2018-03-28] MEDS ORDERED: LORazepam Inj 2mg/ml 1ml IM ONE (08:00)
[2018-03-28 08:16] LABS: BASOPHILS % (AUTO) 0.6 % (0.0-2.0); EOSINOPHILS % (AUTO) 0.2 % (0.0-3.0); HEMATOCRIT 46.7 % (37.0-47.0); HEMOGLOBIN 16.2 G/DL (12.0-16.0); MEAN CORPUSCULAR VOLUME 89 FL (80-99); MONOCYTES % (AUTO) 3.2 % (1.0-10.0); NEUTROPHILS % (AUTO) 83.1 % (45.0-75.0); PLATELET COUNT 235 K/UL (150-450); RED BLOOD COUNT 5.25 M/UL (4.20-5.40); RED CELL DISTRIBUTION WIDTH 11.4 % (11.6-14.8); WHITE BLOOD COUNT 16.7 K/UL (4.8-10.8)
[2018-03-28] MEDS ORDERED: Haloperidol 5mg/ml Inj ONE (08:18)
[2018-03-28] MEDS ORDERED: Haloperidol 5mg/ml Inj IM ONE (08:30)
--- NOTE | 2018-03-28 09:18 | Emergency Room Report ---
History of Present Illness General Chief Complaint: Vomiting Source: Patient, Medical Record Present Illness HPI 32-year-old female presents ED for evaluation. Patient complaining of abdominal pain with nausea and vomiting which started this morning. Pain is cramping, 7 out of 10, nonradiating. Denies any diarrhea. Patient has history of cyclical vomiting syndrome. Has been here several times for similar presentation. States she ran out of her Zofran. No other aggravating relieving factors. Denies any other associated symptoms Allergies: Coded Allergies: PROCHLORPERAZINE (Verified Allergy, Intermediate, hives on left forearm, ) allergic reaction from pt was admitted to ED on 01/05/17 SULFA (SULFONAMIDE ANTIBIOTICS) (Verified Allergy, Unknown, 02/23/11) Uncoded Allergies: SULFA (Allergy, Unknown, 11/18/17) Patient History Past Medical History: asthma Past Surgical History: none Pertinent Family History: none Social History: Denies: smoking, alcohol use, drug use Last Menstrual Period: on control pill Now: No Immunizations: UTD Reviewed Nursing Documentation: PMH: Agreed; PSxH: Agreed Nursing Documentation-PMH Past Medical History: No History, Except For Hx Cardiac Problems: No - Cyclic vomitting syndrome Hx Hypertension: No Hx Pacemaker: No Hx Asthma: Yes Hx COPD: No Hx Diabetes: No Hx Cancer: No Hx Gastrointestinal Problems: Yes Hx Dialysis: No Hx Neurological Problems: No Hx Cerebrovascular Accident: No Hx Transient Ischemic Attacks: No Hx Dementia: No Hx Alzheimer's Disease: No Hx Parkinson's Disease: No Hx Meningitis: No Hx Encephalitis: No Hx Seizures: No Hx Epilepsy: No Hx Multiple Sclerosis: No Hx Cerebral Palsy: No Hx Amyotrophic Lat Sclerosis: No Hx Guillian-[place] Syndrome: No Hx Paralysis: No Hx Peripheral Neuropathy: No Hx Spinal Cord Injury: No Hx Head Trauma: No Hx Traumatic Brain Injury: No Hx Memory Loss: No Hx Concentration Difficulty: No Hx Speech Problem: No Hx Tremors: No Hx Vertigo: No Hx Dizziness: No Hx Syncope: No Hx Headaches: No Hx Aphasia: No Hx Dysphasia: No Hx Numbness: No Hx Weakness: No Hx Fatigue: No Hx Neurologic Surgery: No Hx Brain Shunt: No Review of Systems All Other Systems: negative except mentioned in HPI Physical Exam Vital Signs Date Time Temp Pulse Resp B/P (MAP) Pulse Ox O2 Delivery O2 Flow Rate FiO2 4/27/18 07:24 97.9 105 18 169/98 97 Room Air 97.9 Sp02 EP Interpretation: reviewed, normal General Appearance: no apparent distress, alert, GCS 15, non-toxic Head: normocephalic, atraumatic Eyes: bilateral eye normal inspection, bilateral eye PERRL ENT: hearing grossly normal, normal pharynx, no angioedema, normal voice Neck: full range of motion, supple/symm/no masses Respiratory: chest non-tender, lungs clear, normal breath sounds, speaking full sentences Cardiovascular #1: regular rate, rhythm, no edema Cardiovascular #2: 2+ carotid (R), 2+ carotid (L), 2+ radial (R), 2+ radial (L) , 2+ dorsalis pedis (R), 2+ dorsalis pedis (L) Gastrointestinal: normal bowel sounds, non tender, soft, non-distended, no guarding, no rebound Rectal: deferred Genitourinary: normal inspection, no CVA tenderness Musculoskeletal: back normal, gait/station normal, normal range of motion, non- tender Neurologic: alert, oriented x3, responsive, motor strength/tone normal, sensory intact, speech normal Psychiatric: judgement/insight normal, memory normal, no suicidal/homicidal ideation, anxious Reflexes: 3+ bicep (R), 3+ bicep (L), 3+ tricep (R), 3+ tricep (L), 3+ knee (R) , 3+ knee (L) Skin: normal color, no rash, warm/dry, well hydrated Lymphatic: no adenopathy Medical Decision Making Diagnostic Impression: Primary Impression: Cyclic vomiting syndrome Qualified Codes: G43.A1 - Cyclical vomiting, intractable Additional Impression: Intractable nausea and vomiting Qualified Codes: G43.A1 - Cyclical vomiting, intractable ER Course Hospital Course 32-year-old F presents to ED with epigastric pain with N/V. differential diagnosis: gastritis, SBO, cholecystits Clinical course Patient placed on stretcher. 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 After initial history and physical I ordered labs, IV fluids, zofran, ativan Labs - noted leukocytosis, no electrolyte abnormalities, LFTs normal patient continues to have vomiting. Attempted additional round of medication with Zofran, haldol and additional fluids. I believe patient should be admitted at this time. Patient will be admitted to Dr. Deal I feel this is a highly complex case requiring extensive working including EKG/ Rhythm strip, Xray/CT/US, Blood/urine lab work, repeat exams while in ED, and administration of strong opiates/narcotics for pain control, admission to hospital or close patient follow up. Diagnosis - cyclical vomiting syndrome, intratable nausea and vomiting Admitted to floor in serious condition Labs Test 03/28/18 07:50 03/28/18 10:33 03/28/18 14:15 White Blood Count 16.7 K/UL (4.8-10.8) Red Blood Count 5.25 M/UL (4.20-5.40) Hemoglobin 16.2 G/DL (12.0-16.0) Hematocrit 46.7 % (37.0-47.0) Mean Corpuscular Volume 89 FL (80-99) Mean Corpuscular Hemoglobin 30.8 PG (27.0-31.0) Mean Corpuscular Hemoglobin Concent 34.7 G/DL (32.0-36.0) Red Cell Distribution Width 11.4 % (11.6-14.8) Platelet Count 235 K/UL (150-450) Mean Platelet Volume 5.9 FL (6.5-10.1) Neutrophils (%) (Auto) 83.1 % (45.0-75.0) Lymphocytes (%) (Auto) 13.0 % (20.0-45.0) Monocytes (%) (Auto) 3.2 % (1.0-10.0) Eosinophils (%) (Auto) 0.2 % (0.0-3.0) Basophils (%) (Auto) 0.6 % (0.0-2.0) Sodium Level 140 MMOL/L (136-145) Potassium Level 3.6 MMOL/L (3.5-5.1) Chloride Level 106 MMOL/L (98-107) Carbon Dioxide Level 21 MMOL/L (21-32) Anion Gap 13 mmol/L (5-15) Blood Urea Nitrogen 12 mg/dL (7-18) Creatinine 0.7 MG/DL (0.55-1.30) Estimat Glomerular Filtration Rate > 60 mL/min (>60) Glucose Level 139 MG/DL (74-106) Calcium Level 9.3 MG/DL (8.5-10.1) Total Bilirubin 0.3 MG/DL (0.2-1.0) Aspartate Amino Transf (AST/SGOT) 21 U/L (15-37) Alanine Aminotransferase (ALT/SGPT) 24 U/L (12-78) Alkaline Phosphatase 46 U/L (46-116) Total Protein 8.0 G/DL (6.4-8.2) Albumin 4.4 G/DL (3.4-5.0) Globulin 3.6 g/dL Albumin/Globulin Ratio 1.2 (1.0-2.7) Lipase 105 U/L (73-393) Last Vital Signs Date Time Temp Pulse Resp B/P (MAP) Pulse Ox O2 Delivery O2 Flow Rate FiO2 03/28/18 07:24 97.9 105 18 169/98 97 Room Air 97.9 Status: improved Disposition: ADMITTED INPATIENT Condition: Serious Scripts Lorazepam* (ATIVAN*) 1 Mg Tablet 1 MG ORAL THREE TIMES A DAY, #20 TAB Prov: Miguel Rust MD 03/28/18 Ondansetron Odt* (ZOFRAN ODT*) 4 Mg Tab.rapdis 4 MG ORAL Q6H PRN for Nausea & Vomiting, #30 TAB 0 Refills Prov: Miguel Rust MD 03/28/18 Referrals: DEENA MCDOWELL (PCP) Miguel Rust MD Mar 28, 2018 09:18
[2018-03-28 11:11] LABS: ANION GAP 13 mmol/L (5-15); BLOOD UREA NITROGEN 12 mg/dL (7-18); CALCIUM 9.3 MG/DL (8.5-10.1); CARBON DIOXIDE 21 MMOL/L (21-32); CHLORIDE 106 MMOL/L (98-107); CREATININE 0.7 MG/DL (0.55-1.30); POTASSIUM 3.6 MMOL/L (3.5-5.1); SODIUM 140 MMOL/L (136-145)
[2018-03-28 11:17] LABS: ALANINE AMINOTRANSFERASE 24 U/L (12-78); ALBUMIN 4.4 G/DL (3.4-5.0); ALBUMIN/GLOBULIN RATIO 1.2 (1.0-2.7); ALKALINE PHOSPHATASE 46 U/L (46-116); ASPARTATE AMINO TRANSFERASE 21 U/L (15-37); BILIRUBIN,TOTAL 0.3 MG/DL (0.2-1.0)
[2018-03-28 13:00] VITALS: BP 158/99
[2018-03-28] MEDS ORDERED: ATIVAN1 MG ORAL (13:05)
[2018-03-28] MEDS ORDERED: ZOFRAN ODT4 MG ORAL (13:05)
[2018-03-28 14:41] LABS: APPEARANCE,URINE CLEAR; BILIRUBIN, URINE NEGATIVE (NEGATIVE); COLOR,URINE PALE YELLOW; GLUCOSE, URINE (UA) NEGATIVE (NEGATIVE); KETONES,URINE 3+ (NEGATIVE); LEUKOCYTE ESTERASE ,URINE NEGATIVE (NEGATIVE); NITRITE,URINE NEGATIVE (NEGATIVE); PH,URINE 6.5 (4.5-8.0); PROTEIN,URINE NEGATIVE (NEGATIVE); UROBILINOGEN,URINE NORMAL MG/DL (0.0-1.0)
[2018-03-28] MEDS ORDERED: Acetaminophen 650 MG SUPP RECTAL PRN ×2 (15:15)
[2018-03-28] MEDS ORDERED: Milk of Magnesia 30ml Ud ORAL PRN (15:15)
[2018-03-28] MEDS ORDERED: Morphine Sulfate 4mg/ml Inj IVP PRN (15:15)
[2018-03-28 17:00] VITALS: BP 137/99
[2018-03-28] MEDS: LORazepam Inj 2mg/ml 1ml IV PRN ×2 (17:49→23:02)
[2018-03-28] MEDS: Metoclopramide 10mg/2ml Inj IVP PRN (17:49)
[2018-03-28] MEDS ORDERED: Pantoprazole Inj IV SCH (18:00)
[2018-03-28] MEDS: D5 1/2NS w/KCl 20mEq 1,000 ML IV SCH (18:32)
[2018-03-28 20:00] VITALS: BP 156/90
--- NOTE | 2018-03-28 21:49 | History and Physical ---
History of Present Illness General Date patient seen: Mar 28, 2018 Time patient seen: 21:49 Reason for Hospitalization: Nausea/vomiting, abd pain Present Illness HPI 32y/o female with pmh of cyclic vomiting syndrome, cannabis abuse, anxiety who presents with abd pain, nausea and vomiting. Pt states she recently started a new job and has been more stressed than usual. She did smoke marijuana a few days ago. She states this morning she developed sudden onset nausea w/ multiple episodes of nb/nb emesis. Denies f/c, d/c, chest pain, SOB. After episodes of nausea/vomiting, she developed generalized abd pain. Denies recent travel, sick contacts, trauma. Allergies: Coded Allergies: PROCHLORPERAZINE (Verified Allergy, Intermediate, hives on left forearm, ) allergic reaction from pt was admitted to ED on 01/05/17 SULFA (SULFONAMIDE ANTIBIOTICS) (Verified Allergy, Unknown, 02/23/11) Uncoded Allergies: SULFA (Allergy, Unknown, 11/18/17) Medication History Scheduled Albuterol Sulfate* (Proair Hfa*), 1 PUFF INH Q6H, (Reported) Amitriptyline HCl (Elavil*), 25 MG ORAL BEDTIME Lorazepam* (Ativan*), 1 MG ORAL THREE TIMES A DAY Promethazine Hcl (Promethazine Hcl), 25 MG RC Q6HR Scheduled PRN Lorazepam* (Ativan*), 1 MG ORAL Q4HR PRN for Nausea & Vomiting, (Reported) Metoclopramide Hcl* (Reglan*), 10 MG ORAL THREE TIMES A DAY PRN Ondansetron Hcl* (Zofran*), 8 MG ORAL Q4HR PRN for Nausea & Vomiting, (Reported) Ondansetron Odt* (Zofran Odt*), 4 MG ORAL Q6H PRN for Nausea & Vomiting Ondansetron Odt* (Zofran Odt*), 4 MG ORAL Q6H PRN for Nausea & Vomiting Ondansetron Odt* (Zofran Odt*), 4 MG ORAL Q6H PRN for Nausea & Vomiting Ondansetron Odt* (Zofran Odt*), 4 MG ORAL Q6H PRN for Nausea & Vomiting Ondansetron Odt* (Zofran Odt*), 4 MG ORAL Q8H PRN for Nausea & Vomiting Ondansetron Odt* (Zofran Odt*), 4 MG ORAL Q6H PRN for Nausea & Vomiting Patient History History Provided By: Patient, Medical Record, PMD Healthcare decision maker Resuscitation status Full Code Advanced Directive on File Past Medical/Surgical History Past Medical/Surgical History: (1) Cyclic vomiting syndrome (2) Cannabis abuse Family History Family History: Patient reports no known family medical history. Social History Social History: (1) Cannabis abuse Review of Systems Constitutional: Reports: malaise, weakness Eye: Reports: no symptoms ENT: Reports: no symptoms Respiratory: Reports: no symptoms Cardiovascular: Reports: no symptoms Gastrointestinal: Reports: no symptoms, abdominal pain, nausea, vomiting Genitourinary: Reports: no symptoms Musculoskeletal: Reports: no symptoms Skin: Reports: no symptoms Psychiatric: Reports: anxiety Neurological: Reports: no symptoms Endocrine: Reports: no symptoms Hematologic/Lymphatic: Reports: no symptoms Physical Exam Physical Exam Narrative General: alert, cooperative, no distress, appears stated age Head: normocephalic, without obvious abnormality, atraumatic Eyes: conjunctivae/corneas clear. PERRL, EOM's intact Throat: lips, mucosa, and tongue normal. MMM Neck: supple, symmetrical, trachea midline, and no JVD Lungs: clear to auscultation bilaterally Heart: regular rate and rhythm, S1, S2 normal, no murmur, click, rub or gallop Abdomen: soft, +TTP diffusely w/o rebound or guarding, non-distended, bowel sounds normal; no masses or organomegaly Extremities: extremities normal, atraumatic, no cyanosis or edema Pulses: 2+ and symmetric Skin: skin color, texture, turgor normal; no rashes or lesions Neurologic: grossly normal, no focal deficits Last 24 Hour Vital Signs Date Time Temp Pulse Resp B/P (MAP) Pulse Ox O2 Delivery O2 Flow Rate FiO2 03/28/18 20:00 98.7 105 19 156/90 98 Room Air 98.7 03/28/18 17:32 98.1 87 16 137/99 99 Room Air 98.1 03/28/18 17:00 98.1 87 16 137/99 Room Air 98.1 03/28/18 13:00 98.1 110 16 158/99 99 Room Air 98.1 03/28/18 07:30 98.2 88 20 142/71 99 Room Air 98.2 03/28/18 07:24 97.9 105 18 169/98 97 Room Air 97.9 Laboratory Tests Test 03/28/18 07:50 03/28/18 10:33 03/28/18 14:15 White Blood Count 16.7 K/UL (4.8-10.8) H Red Blood Count 5.25 M/UL (4.20-5.40) Hemoglobin 16.2 G/DL (12.0-16.0) H Hematocrit 46.7 % (37.0-47.0) Mean Corpuscular Volume 89 FL (80-99) Mean Corpuscular Hemoglobin 30.8 PG (27.0-31.0) Mean Corpuscular Hemoglobin Concent 34.7 G/DL (32.0-36.0) Red Cell Distribution Width 11.4 % (11.6-14.8) L Platelet Count 235 K/UL (150-450) Mean Platelet Volume 5.9 FL (6.5-10.1) L Neutrophils (%) (Auto) 83.1 % (45.0-75.0) H Lymphocytes (%) (Auto) 13.0 % (20.0-45.0) L Monocytes (%) (Auto) 3.2 % (1.0-10.0) Eosinophils (%) (Auto) 0.2 % (0.0-3.0) Basophils (%) (Auto) 0.6 % (0.0-2.0) Sodium Level 140 MMOL/L (136-145) Potassium Level 3.6 MMOL/L (3.5-5.1) Chloride Level 106 MMOL/L (98-107) Carbon Dioxide Level 21 MMOL/L (21-32) Anion Gap 13 mmol/L (5-15) Blood Urea Nitrogen 12 mg/dL (7-18) Creatinine 0.7 MG/DL (0.55-1.30) Estimat Glomerular Filtration Rate > 60 mL/min (>60) Glucose Level 139 MG/DL (74-106) H Calcium Level 9.3 MG/DL (8.5-10.1) Total Bilirubin 0.3 MG/DL (0.2-1.0) Aspartate Amino Transf (AST/SGOT) 21 U/L (15-37) Alanine Aminotransferase (ALT/SGPT) 24 U/L (12-78) Alkaline Phosphatase 46 U/L (46-116) Total Protein 8.0 G/DL (6.4-8.2) Albumin 4.4 G/DL (3.4-5.0) Globulin 3.6 g/dL Albumin/Globulin Ratio 1.2 (1.0-2.7) Lipase 105 U/L (73-393) Urine Color Pale yellow Urine Appearance Clear Urine pH 6.5 (4.5-8.0) Urine Specific [place] 1.010 (1.005-1.035) Urine Protein Negative (NEGATIVE) Urine Glucose (UA) Negative (NEGATIVE) Urine Ketones 3+ (NEGATIVE) H Urine Occult Blood 2+ (NEGATIVE) H Urine Nitrite Negative (NEGATIVE) Urine Bilirubin Negative (NEGATIVE) Urine Urobilinogen Normal MG/DL (0.0-1.0) Urine Leukocyte Esterase Negative (NEGATIVE) Urine RBC 2-4 /HPF (0 - 2) H Urine WBC 0-2 /HPF (0 - 2) Urine Squamous Epithelial Cells Few /LPF (NONE/OCC) Urine Bacteria Occasional /HPF (NONE) Urine HCG, Qualitative Negative (NEGATIVE) Height (Feet): 5 Height (Inches): 10.00 Weight (Pounds): 130 Medications Current Medications Medications (Trade) Dose Ordered Sig/Shanta Route PRN Reason Start Time Stop Time Status Last Admin Dose Admin Acetaminophen (Tylenol) 650 mg Q4H PRN ORAL Mild Pain (Pain Scale 1-3) 03/28/18 15:15 04/27/18 15:14 Acetaminophen (Tylenol) 650 mg Q4H PRN ORAL fever (temp>100.5F) 03/28/18 15:15 04/27/18 15:14 Acetaminophen (Tylenol) 650 mg Q4H PRN RECTAL Mild Pain (Pain Scale 1-3) 03/28/18 15:15 04/27/18 15:14 Acetaminophen (Tylenol) 650 mg Q4H PRN RECTAL fever (temp>100.5F) 03/28/18 15:15 04/27/18 15:14 Bisacodyl (Dulcolax) 10 mg HSPRN PRN RECTAL Constipation 03/28/18 15:15 04/27/18 15:14 Dextrose (Dextrose 50%) 25 ml STAT PRN IV Hypoglycemia 03/28/18 15:15 04/27/18 15:14 Dextrose (Dextrose 50%) 50 ml STAT PRN IV Hypoglycemia 03/28/18 15:15 04/27/18 15:14 Dextrose/ Electrolytes 1,000 ml @ 100 mls/hr Q10H IV 03/28/18 18:00 04/27/18 17:59 03/28/18 18:32 Diphenhydramine HCl (Benadryl) 25 mg Q6H PRN ORAL Itching/Pruritis 03/28/18 15:15 04/27/18 15:14 Lorazepam (Ativan 2mg/ml 1ml) 0.5 mg Q4H PRN IV For Anxiety 03/28/18 15:15 04/04/18 15:14 03/28/18 17:49 Magnesium Hydroxide (Mom) 30 ml HSPRN PRN ORAL Constipation 03/28/18 15:15 04/27/18 15:14 Metoclopramide HCl (Reglan) 10 mg Q6H PRN IVP Nausea & Vomiting 03/28/18 15:37 04/27/18 15:36 03/28/18 17:49 Morphine Sulfate (Morphine Sulfate) 2 mg Q4H PRN IVP Moderate Pain (Pain Scale 4-6) 03/28/18 15:15 04/04/18 15:14 03/28/18 16:53 Morphine Sulfate (Morphine Sulfate) 4 mg Q4H PRN IVP Severe Pain (Pain Scale 7-10) 03/28/18 15:15 04/04/18 15:14 Ondansetron HCl (Zofran) 4 mg Q6H PRN IVP Nausea & Vomiting 03/28/18 15:15 04/27/18 15:14 03/28/18 16:09 Pantoprazole (Protonix) 40 mg DAILY IV 03/29/18 09:00 04/28/18 08:59 Assessment/Plan Problem List: (1) Cyclic vomiting syndrome ICD Codes: G43.A0 - Cyclical vomiting, not intractable SNOMED: 04519925 Qualifiers: Qualified Codes: G43.A1 - Cyclical vomiting, intractable (2) Intractable nausea and vomiting ICD Codes: R11.2 - Nausea with vomiting, unspecified SNOMED: 012135008, [id number] Qualifiers: Qualified Codes: G43.A1 - Cyclical vomiting, intractable (3) Leukocytosis Assessment & Plan: likely stress response ICD Codes: D72.829 - Leukocytosis SNOMED: 411027807 (4) Hypokalemia ICD Codes: E87.6 - Hypokalemia SNOMED: 58433469 (5) Dehydration ICD Codes: E86.0 - Dehydration SNOMED: 65755085 (6) Cannabis abuse ICD Codes: F12.10 - Cannabis abuse, uncomplicated SNOMED: 20369479 Status: stable Assessment/Plan Admit inpt CLD for now mIVFs w/ KCl Nausea control w/ zofran 4mg IV q4h PRN n/v Pain control w/ morphine 2/4mg q4h PRN mod/severe pain Consider GI eval if symptoms persist Trend CBC, CMP Ativan 0.5mg IV PRN for anixety Design Tech on stress reduction, cannabis abstinence DVT ppx: SCDs FULL CODE D/w pt, RN regarding mgmt and dispo Drew Schmitz M.D. Mar 28, 2018 21:49
[2018-03-29] VITALS: BP 142/79
[2018-03-29] MEDS: Morphine Sulfate 4mg/ml Inj IVP PRN ×3 (02:07→17:37)
[2018-03-29] MEDS: Metoclopramide 10mg/2ml Inj IVP PRN ×2 (02:12→12:06)
[2018-03-29 04:00] VITALS: BP 113/73
[2018-03-29] MEDS: LORazepam Inj 2mg/ml 1ml IV PRN ×4 (04:12→20:49)
[2018-03-29] MEDS: D5 1/2NS w/KCl 20mEq 1,000 ML IV SCH (04:12)
[2018-03-29 04:41] LABS: BASOPHILS % (AUTO) 0.4 % (0.0-2.0); HEMATOCRIT 34.7 % (37.0-47.0); HEMOGLOBIN 12.7 G/DL (12.0-16.0); LYMPHOCYTES % (AUTO) 19.2 % (20.0-45.0); MEAN CORPUSCULAR VOLUME 87 FL (80-99); MONOCYTES % (AUTO) 7.4 % (1.0-10.0); PLATELET COUNT 212 K/UL (150-450); RED BLOOD COUNT 3.97 M/UL (4.20-5.40); RED CELL DISTRIBUTION WIDTH 11.4 % (11.6-14.8); WHITE BLOOD COUNT 11.3 K/UL (4.8-10.8)
[2018-03-29 04:50] LABS: ALANINE AMINOTRANSFERASE 21 U/L (12-78); ALBUMIN 3.9 G/DL (3.4-5.0); ALBUMIN/GLOBULIN RATIO 1.3 (1.0-2.7); ALKALINE PHOSPHATASE 42 U/L (46-116); ANION GAP 12 mmol/L (5-15); ASPARTATE AMINO TRANSFERASE 23 U/L (15-37); BILIRUBIN,TOTAL 0.5 MG/DL (0.2-1.0); BLOOD UREA NITROGEN 10 mg/dL (7-18); CALCIUM 8.5 MG/DL (8.5-10.1); CARBON DIOXIDE 22 MMOL/L (21-32); CHLORIDE 107 MMOL/L (98-107); CREATININE 0.7 MG/DL (0.55-1.30); POTASSIUM 3.2 MMOL/L (3.5-5.1); SODIUM 141 MMOL/L (136-145)
[2018-03-29 08:00] VITALS: BP 142/86
[2018-03-29] MEDS ORDERED: Pantoprazole Inj IV SCH (09:00)
[2018-03-29] MEDS: D5 1/2NS w/KCl 40meq 1000ml 1,000 ML IV SCH ×2 (10:57→20:48)
[2018-03-29 12:55] VITALS: BP 148/79
[2018-03-29 16:00] VITALS: BP 135/59
[2018-03-29 20:00] VITALS: BP 118/84
[2018-03-30] VITALS: BP 118/69
[2018-03-30] MEDS: LORazepam Inj 2mg/ml 1ml IV PRN (03:22)
[2018-03-30 04:00] VITALS: BP 121/68
[2018-03-30] MEDS: D5 1/2NS w/KCl 40meq 1000ml 1,000 ML IV SCH (07:25)
--- NOTE | 2018-04-01 21:56 | Discharge Summary ---
Discharge Summary Hospital Course Date of Admission Mar 28, 2018 at 14:11 Date of Discharge Mar 30, 2018 at 08:00 Admitting Diagnosis intractable vomiting Reason for Hospitalization: cyclic vomiting syndrome HPI 32y/o female with pmh of cyclic vomiting syndrome, cannabis abuse, anxiety who presents with abd pain, nausea and vomiting. Pt states she recently started a new job and has been more stressed than usual. She did smoke marijuana a few days ago. She states this morning she developed sudden onset nausea w/ multiple episodes of nb/nb emesis. Denies f/c, d/c, chest pain, SOB. After episodes of nausea/vomiting, she developed generalized abd pain. Denies recent travel, sick contacts, trauma. Hospital Course Pt was admitted and treated conservative with CLD, IVFs, pain control and nausea control. Once symptomatically improving, diet was slowly advanced as tolerated. Leukocytosis downtrended w/o needed for antibiotics. Electrolytes improved. Prior to discharge, pt was HD stable, tolerating PO and ambulating w/ o assistance. Discharge Medications Continued Medications: Albuterol Sulfate* (Proair Hfa*) 8.5 Gm Hfa.aer.ad 1 PUFF INH Q6H, #8.5 GM 0 Refills (This prescription has been renewed) Amitriptyline HCl (Elavil*) 25 Mg Tablet 25 MG ORAL BEDTIME for 30 Days, #30 TAB 2 Refills Lorazepam* (Ativan*) 1 Mg Tablet 1 MG ORAL Q4HR PRN for Nausea & Vomiting, TAB (This prescription has been renewed) Lorazepam* (Ativan*) 1 Mg Tablet 1 MG ORAL THREE TIMES A DAY, #20 TAB Metoclopramide Hcl* (Reglan*) 10 Mg Tablet 10 MG ORAL THREE TIMES A DAY PRN for 14 Days, #30 TAB 1 Refill nausea/vomiting Ondansetron Hcl* (Zofran*) 8 Mg Tablet 8 MG ORAL Q4HR PRN for Nausea & Vomiting, #4 TAB 0 Refills (This prescription has been renewed) Ondansetron Odt* (Zofran Odt*) 4 Mg Tab.rapdis 4 MG ORAL Q6H PRN for Nausea & Vomiting, #30 TAB 0 Refills Ondansetron Odt* (Zofran Odt*) 4 Mg Tab.rapdis 4 MG ORAL Q6H PRN for Nausea & Vomiting, #30 TAB 0 Refills Ondansetron Odt* (Zofran Odt*) 4 Mg Tab.rapdis 4 MG ORAL Q6H PRN for Nausea & Vomiting, #15 TAB 0 Refills Ondansetron Odt* (Zofran Odt*) 4 Mg Tab.rapdis 4 MG ORAL Q6H PRN for Nausea & Vomiting, #30 TAB 0 Refills Ondansetron Odt* (Zofran Odt*) 4 Mg Tab.rapdis 4 MG ORAL Q8H PRN for Nausea & Vomiting, #30 TAB 0 Refills Ondansetron Odt* (Zofran Odt*) 4 Mg Tab.rapdis 4 MG ORAL Q6H PRN for Nausea & Vomiting, #30 TAB 0 Refills Promethazine Hcl (Promethazine Hcl) 25 Mg Supp.rect 25 MG RC Q6HR, #15 SUPP Discharge Condition Upon Discharge: stable Discharge Disposition Patient was discharged to Home (01) Discharge Diagnoses: (1) Cyclic vomiting syndrome (2) Intractable nausea and vomiting (3) Cannabis abuse (4) Leukocytosis (5) Dehydration (6) Hypokalemia Drew Schmitz M.D. April 01, 2018 21:56
== END 2018-03-30 08:00 | disposition home or self-care (01) | DRG 103 ==
LOC: EMR 08:06 → 3E 14:11 → EDBEDREQ 15:58
DX: G43.A0 Cyclical vomiting, in migraine, not intractable (principal); E87.6 Hypokalemia; E86.0 Dehydration; F12.10 Cannabis abuse, uncomplicated; Z88.2 Allergy status to sulfonamides; Z88.8 Allergy status to other drugs, medicaments and biological substances
CPT/HCPCS: 36415; 80053; 81003; 81025; 83690; 83735; 85025; 99285; J2405; J2765

== ENCOUNTER 2018-04-29 09:33 | Emergency (ER) | payer MEDICAID, OTHER ==
[~2018-04-29] VITALS: Ht 172.7 cm; Wt 59.0 kg
[2018-04-29] MEDS ORDERED: Haloperidol 5mg/ml Inj IM ONE (10:00)
[2018-04-29] MEDS ORDERED: LORazepam Inj 2mg/ml 1ml IV ONE (10:00)
[2018-04-29 10:09] LABS: BASOPHILS % (AUTO) 0.8 % (0.0-2.0); EOSINOPHILS % (AUTO) 0.1 % (0.0-3.0); HEMATOCRIT 39.3 % (37.0-47.0); HEMOGLOBIN 13.3 G/DL (12.0-16.0); MEAN CORPUSCULAR VOLUME 88 FL (80-99); MONOCYTES % (AUTO) 4.2 % (1.0-10.0); PLATELET COUNT 221 K/UL (150-450); RED BLOOD COUNT 4.45 M/UL (4.20-5.40); RED CELL DISTRIBUTION WIDTH 11.6 % (11.6-14.8); WHITE BLOOD COUNT 13.7 K/UL (4.8-10.8)
[2018-04-29] MEDS ORDERED: Morphine Sulfate 4mg/ml Inj IVP ONE (10:30)
[2018-04-29 10:37] LABS: ANION GAP 16 mmol/L (5-15); BLOOD UREA NITROGEN 10 mg/dL (7-18); CALCIUM 9.4 MG/DL (8.5-10.1); CARBON DIOXIDE 19 MMOL/L (21-32); CHLORIDE 105 MMOL/L (98-107); CREATININE 0.8 MG/DL (0.55-1.30); POTASSIUM 3.6 MMOL/L (3.5-5.1); SODIUM 140 MMOL/L (136-145)
[2018-04-29 10:43] LABS: ALANINE AMINOTRANSFERASE 21 U/L (12-78); ALBUMIN 4.5 G/DL (3.4-5.0); ALBUMIN/GLOBULIN RATIO 1.3 (1.0-2.7); ALKALINE PHOSPHATASE 46 U/L (46-116); ASPARTATE AMINO TRANSFERASE 16 U/L (15-37); BILIRUBIN,TOTAL 0.3 MG/DL (0.2-1.0)
--- NOTE | 2018-04-29 10:50 | Emergency Room Report ---
History of Present Illness General Chief Complaint: Abdominal Pain Source: Patient Present Illness HPI 33-year-old female presents ED complaining of abdominal pain with nausea and vomiting. Started this morning. History of cyclical vomiting. Has been here multiple times for similar presentation. Pain is sharp, epigastric, 8 out of 10 , nonradiating. Patient appears very anxious. Denies fevers or chills. Denies chest pain or shortness of breath. No other aggravating relieving factors. Denies any other associated symptoms Allergies: Coded Allergies: PROCHLORPERAZINE (Verified Allergy, Intermediate, hives on left forearm, ) allergic reaction from pt was admitted to ED on 01/05/17 SULFA (SULFONAMIDE ANTIBIOTICS) (Verified Allergy, Unknown, 02/23/11) Uncoded Allergies: SULFA (Allergy, Unknown, 11/18/17) Patient History Past Medical History: asthma Past Surgical History: none Pertinent Family History: none Social History: Denies: smoking, alcohol use, drug use Last Menstrual Period: 03/2018 Now: No - Depoprovera Immunizations: UTD Reviewed Nursing Documentation: PMH: Agreed; PSxH: Agreed Nursing Documentation-PMH Hx Cardiac Problems: No Hx Hypertension: No Hx Pacemaker: No Hx Asthma: Yes Hx COPD: No Hx Diabetes: No Hx Cancer: No Hx Dialysis: No Hx Neurological Problems: No Hx Cerebrovascular Accident: No Hx Transient Ischemic Attacks: No Hx Dementia: No Hx Alzheimer's Disease: No Hx Parkinson's Disease: No Hx Meningitis: No Hx Encephalitis: No Hx Seizures: No Hx Epilepsy: No Hx Multiple Sclerosis: No Hx Cerebral Palsy: No Hx Amyotrophic Lat Sclerosis: No Hx Guillian-[place] Syndrome: No Hx Paralysis: No Hx Peripheral Neuropathy: No Hx Spinal Cord Injury: No Hx Head Trauma: No Hx Traumatic Brain Injury: No Hx Memory Loss: No Hx Concentration Difficulty: No Hx Speech Problem: No Hx Tremors: No Hx Vertigo: No Hx Dizziness: No Hx Syncope: No Hx Headaches: No Hx Aphasia: No Hx Dysphasia: No Hx Numbness: No Hx Weakness: No Hx Fatigue: No Hx Neurologic Surgery: No Hx Brain Shunt: No Review of Systems All Other Systems: negative except mentioned in HPI Physical Exam Vital Signs Date Time Temp Pulse Resp B/P (MAP) Pulse Ox O2 Delivery O2 Flow Rate FiO2 04/29/18 09:39 97.8 95 24 150/92 97 Room Air 97.9 Sp02 EP Interpretation: reviewed, normal General Appearance: alert, GCS 15, non-toxic, mild distress Head: normocephalic, atraumatic Eyes: bilateral eye normal inspection, bilateral eye PERRL ENT: hearing grossly normal, normal pharynx, no angioedema, normal voice Neck: full range of motion, supple/symm/no masses Respiratory: chest non-tender, lungs clear, normal breath sounds, speaking full sentences Cardiovascular #1: regular rate, rhythm, no edema Cardiovascular #2: 2+ carotid (R), 2+ carotid (L), 2+ radial (R), 2+ radial (L) , 2+ dorsalis pedis (R), 2+ dorsalis pedis (L) Gastrointestinal: normal bowel sounds, soft, non-distended, no guarding, no rebound, tenderness - epigastric Rectal: deferred Genitourinary: normal inspection, no CVA tenderness Musculoskeletal: back normal, gait/station normal, normal range of motion, non- tender Neurologic: alert, oriented x3, responsive, motor strength/tone normal, sensory intact, speech normal Psychiatric: judgement/insight normal, memory normal, no suicidal/homicidal ideation, anxious Reflexes: 3+ bicep (R), 3+ bicep (L), 3+ tricep (R), 3+ tricep (L), 3+ knee (R) , 3+ knee (L) Skin: normal color, no rash, warm/dry, well hydrated Lymphatic: no adenopathy Medical Decision Making Diagnostic Impression: Primary Impression: Cyclic vomiting syndrome Qualified Codes: G43.A0 - Cyclical vomiting, not intractable Additional Impression: Cannabis abuse ER Course Hospital Course 33-year-old F presents to ED with epigastric pain with N/V. differential diagnosis: gastritis, SBO, cholecystits Clinical course Patient placed on stretcher. On potline monitor. After initial history and physical I ordered labs, IV fluids, ativan, haldol, zofran Labs - no leukocytosis, no electrolyte abnormalities, LFTs normal, utox + THC Patient allowed to sleep. On reassessment is calm tolerating by mouth intake. patient continues to deny THC use but Utox +THC patient has often required admission for continued persistent vomiting but is stable at this time and can be safely discharged home I feel this is a highly complex case requiring extensive working including EKG/ Rhythm strip, Xray/CT/US, Blood/urine lab work, repeat exams while in ED, and administration of strong opiates/narcotics for pain control, admission to hospital or close patient follow up. Diagnosis - cyclical vomiting syndrome Stable and discharged to home with Aid [facility]. Follow-up with PMD. Return to ED if symptoms recur or worsen Labs Test 04/29/18 09:59 04/29/18 10:30 White Blood Count 13.7 K/UL (4.8-10.8) Red Blood Count 4.45 M/UL (4.20-5.40) Hemoglobin 13.3 G/DL (12.0-16.0) Hematocrit 39.3 % (37.0-47.0) Mean Corpuscular Volume 88 FL (80-99) Mean Corpuscular Hemoglobin 29.9 PG (27.0-31.0) Mean Corpuscular Hemoglobin Concent 33.9 G/DL (32.0-36.0) Red Cell Distribution Width 11.6 % (11.6-14.8) Platelet Count 221 K/UL (150-450) Mean Platelet Volume 6.0 FL (6.5-10.1) Neutrophils (%) (Auto) 79.0 % (45.0-75.0) Lymphocytes (%) (Auto) 16.0 % (20.0-45.0) Monocytes (%) (Auto) 4.2 % (1.0-10.0) Eosinophils (%) (Auto) 0.1 % (0.0-3.0) Basophils (%) (Auto) 0.8 % (0.0-2.0) Sodium Level 140 MMOL/L (136-145) Potassium Level 3.6 MMOL/L (3.5-5.1) Chloride Level 105 MMOL/L (98-107) Carbon Dioxide Level 19 MMOL/L (21-32) Anion Gap 16 mmol/L (5-15) Blood Urea Nitrogen 10 mg/dL (7-18) Creatinine 0.8 MG/DL (0.55-1.30) Estimat Glomerular Filtration Rate > 60 mL/min (>60) Glucose Level 172 MG/DL (74-106) Calcium Level 9.4 MG/DL (8.5-10.1) Total Bilirubin 0.3 MG/DL (0.2-1.0) Aspartate Amino Transf (AST/SGOT) 16 U/L (15-37) Alanine Aminotransferase (ALT/SGPT) 21 U/L (12-78) Alkaline Phosphatase 46 U/L (46-116) Total Protein 8.0 G/DL (6.4-8.2) Albumin 4.5 G/DL (3.4-5.0) Globulin 3.5 g/dL Albumin/Globulin Ratio 1.3 (1.0-2.7) Salicylates Level 1.3 ug/mL (2.8-20) Acetaminophen Level < 2 MCG/ML (10-30) Serum Alcohol < 3 mg/dL Urine Color Pale yellow Urine Appearance Clear Urine pH 6 (4.5-8.0) Urine Specific [place] 1.020 (1.005-1.035) Urine Protein Negative (NEGATIVE) Urine Glucose (UA) Negative (NEGATIVE) Urine Ketones 2+ (NEGATIVE) Urine Occult Blood 1+ (NEGATIVE) Urine Nitrite Negative (NEGATIVE) Urine Bilirubin Negative (NEGATIVE) Urine Urobilinogen Normal MG/DL (0.0-1.0) Urine Leukocyte Esterase Negative (NEGATIVE) Urine RBC 2-4 /HPF (0 - 2) Urine WBC 0-2 /HPF (0 - 2) Urine Squamous Epithelial Cells Occasional /LPF Urine Bacteria Occasional /HPF (NONE) Urine HCG, Qualitative Negative (NEGATIVE) Urine Opiates Screen Negative (NEGATIVE) Urine Barbiturates Screen Negative (NEGATIVE) Phencyclidine (PCP) Screen Negative (NEGATIVE) Urine Amphetamines Screen Negative (NEGATIVE) Urine Benzodiazepines Screen Negative (NEGATIVE) Urine Cocaine Screen Negative (NEGATIVE) Urine Marijuana (THC) Screen Positive (NEGATIVE) Last Vital Signs Date Time Temp Pulse Resp B/P (MAP) Pulse Ox O2 Delivery O2 Flow Rate FiO2 04/29/18 10:40 97.8 04/29/18 09:39 95 24 150/92 97 Room Air Status: improved Disposition: HOME, SELF-CARE Condition: Stable Scripts Ondansetron (Zofran) 4 Mg Tablet 4 MG ORAL Q6H PRN for Nausea & Vomiting, #30 TAB 0 Refills Prov: Sj Hill MD 04/29/18 Omeprazole Magnesium (PRILOSEC OTC) 20 Mg Tablet.dr 20 MG ORAL DAILY, #14 TAB Prov: Sj Hill MD 04/29/18 Referrals: NOT CHOSEN [facility]/,REFERRING (PCP) Miguel Rust MD April 29, 2018 10:50
[2018-04-29 11:00] VITALS: BP 119/72
[2018-04-29 11:26] LABS: APPEARANCE,URINE CLEAR; BILIRUBIN, URINE NEGATIVE (NEGATIVE); COLOR,URINE PALE YELLOW; GLUCOSE, URINE (UA) NEGATIVE (NEGATIVE); KETONES,URINE 2+ (NEGATIVE); LEUKOCYTE ESTERASE ,URINE NEGATIVE (NEGATIVE); NITRITE,URINE NEGATIVE (NEGATIVE); PH,URINE 6 (4.5-8.0); PROTEIN,URINE NEGATIVE (NEGATIVE); UROBILINOGEN,URINE NORMAL MG/DL (0.0-1.0)
[2018-04-29 13:00] VITALS: BP 112/68
[2018-04-29 15:00] VITALS: BP 111/65
[2018-04-29] MEDS ORDERED: PRILOSEC OTC20 MG ORAL (16:51)
[2018-04-29] MEDS ORDERED: ZOFRAN4 MG ORAL (16:51)
[2018-04-29 16:54] VITALS: BP 111/65
== END 2018-04-29 16:56 | disposition home or self-care (01) ==
LOC: EMR 09:54
DX: R10.13 Epigastric pain (principal); G43.A0 Cyclical vomiting, in migraine, not intractable; Z88.2 Allergy status to sulfonamides; J45.909 Unspecified asthma, uncomplicated
CPT/HCPCS: 36415; 80053; 80307; 80329; 81003; 81025; 85025; 96361; 96372; 96374; 96375; 99284; J1630; J2270; J2405; 96360

== ENCOUNTER 2018-04-30 05:06 | Emergency (ER) | payer MEDICAID ==
[~2018-04-30] VITALS: Ht 172.7 cm; Wt 59.0 kg
[~2018-04-30 05:06] MED LIST changes: +PRILOSEC OTC20 MG ORAL; +ZOFRAN4 MG ORAL
[2018-04-30] MEDS ORDERED: Sodium Chloride 500ML 500 ML IV ONE (05:16)
[2018-04-30 05:30] VITALS: BP 161/113
[2018-04-30] MEDS ORDERED: Haloperidol 5mg/ml Inj IM ONE (05:30)
--- NOTE | 2018-04-30 05:39 | Emergency Room Report ---
History of Present Illness General Chief Complaint: Abdominal Pain Source: Patient Present Illness HPI 33-year-old female, history of cyclic vomiting syndrome multiple visits to these emergency room for similar complaints, presenting with nausea and vomiting. Epigastric pain. States that she has had multiple episodes of vomiting since she was discharged. No fever no chills. States that at another Zofran is what works for her. 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 Allergies: Coded Allergies: PROCHLORPERAZINE (Verified Allergy, Intermediate, hives on left forearm, ) allergic reaction from pt was admitted to ED on 01/05/17 SULFA (SULFONAMIDE ANTIBIOTICS) (Verified Allergy, Unknown, 02/23/11) Uncoded Allergies: SULFA (Allergy, Unknown, 11/18/17) Patient History Past Medical History: see triage record Past Surgical History: none Pertinent Family History: none Last Menstrual Period: "mid march" Now: No Reviewed Nursing Documentation: PMH: Agreed; PSxH: Agreed Nursing Documentation-PMH Hx Cardiac Problems: No Hx Hypertension: No Hx Pacemaker: No Hx Asthma: Yes Hx COPD: No Hx Diabetes: No Hx Cancer: No Hx Dialysis: No Hx Neurological Problems: No Hx Cerebrovascular Accident: No Hx Transient Ischemic Attacks: No Hx Dementia: No Hx Alzheimer's Disease: No Hx Parkinson's Disease: No Hx Meningitis: No Hx Encephalitis: No Hx Seizures: No Hx Epilepsy: No Hx Multiple Sclerosis: No Hx Cerebral Palsy: No Hx Amyotrophic Lat Sclerosis: No Hx Guillian-[place] Syndrome: No Hx Paralysis: No Hx Peripheral Neuropathy: No Hx Spinal Cord Injury: No Hx Head Trauma: No Hx Traumatic Brain Injury: No Hx Memory Loss: No Hx Concentration Difficulty: No Hx Speech Problem: No Hx Tremors: No Hx Vertigo: No Hx Dizziness: No Hx Syncope: No Hx Headaches: No Hx Aphasia: No Hx Dysphasia: No Hx Numbness: No Hx Weakness: No Hx Fatigue: No Hx Neurologic Surgery: No Hx Brain Shunt: No Review of Systems All Other Systems: negative except mentioned in HPI Physical Exam Vital Signs Date Time Temp Pulse Resp B/P (MAP) Pulse Ox O2 Delivery O2 Flow Rate FiO2 04/30/18 05:09 98.3 132 18 161/113 98 Room Air 98.2 Sp02 EP Interpretation: reviewed, normal General Appearance: alert, GCS 15, moderate distress Head: normocephalic, atraumatic Eyes: bilateral eye normal inspection, bilateral eye PERRL, bilateral eye EOMI ENT: normal ENT inspection, normal pharynx, normal voice, moist mucus membranes Neck: normal inspection, full range of motion, supple Respiratory: normal inspection, lungs clear, normal breath sounds, no respiratory distress, no retraction, no wheezing, speaking full sentences, chest symmetrical Cardiovascular #1: normal inspection, regular rate, rhythm, no edema, normal capillary refill Cardiovascular #2: 2+ radial (R), 2+ radial (L) Gastrointestinal: other - Mild epigastric tenderness, otherwise nontender and soft abdomen, no guarding or rigidity no rebound Musculoskeletal: normal inspection, back normal, normal range of motion, non- tender Neurologic: normal inspection, alert, oriented x3, responsive, motor strength/ tone normal, sensory intact, normal gait, speech normal Psychiatric: anxious Skin: normal inspection, normal color, no rash, warm/dry, well hydrated, normal turgor Medical Decision Making Diagnostic Impression: Primary Impression: Cyclic vomiting syndrome ER Course 33-year-old female with nausea vomiting, history of cyclic vomiting syndrome Differential Diagnosis: Cyclic vomiting syndrome, Gastritis, gastroenteritis, cholecystitis, appendicitis, diverticulitis, SBO, mesenteric ischemia, cardiac, UTI/pyelo Plan: Basic labs, ua, IV fluids, Zofran, Haldol ER course: Patient has remained stable during ED stay. Patient given Haldol and Zofran and fluids Signed out patient to Dr. Duffy 33-year-old female with cyclic vomiting syndrome has been to the ED multiple times in the past Pending symptom control and reassess for final disposition Please note that this Emergency Department Report was dictated using [employer] filler technology software, occasionally this can lead to erroneous entry secondary to interpretation by the dictation equipment Last Vital Signs Date Time Temp Pulse Resp B/P (MAP) Pulse Ox O2 Delivery O2 Flow Rate FiO2 04/30/18 05:30 98.2 132 18 161/113 98 Room Air 98.2 Referrals: NOT CHOSEN [facility]/,REFERRING (PCP) Jeremiah Arzola M.D. April 30, 2018 05:38
[2018-04-30 05:40] LABS: BASOPHILS % (AUTO) 0.6 % (0.0-2.0); HEMATOCRIT 42.8 % (37.0-47.0); HEMOGLOBIN 14.7 G/DL (12.0-16.0); LYMPHOCYTES % (AUTO) 18.6 % (20.0-45.0); MEAN CORPUSCULAR VOLUME 89 FL (80-99); MONOCYTES % (AUTO) 5.6 % (1.0-10.0); NEUTROPHILS % (AUTO) 75.2 % (45.0-75.0); PLATELET COUNT 246 K/UL (150-450); RED BLOOD COUNT 4.83 M/UL (4.20-5.40); RED CELL DISTRIBUTION WIDTH 11.7 % (11.6-14.8); WHITE BLOOD COUNT 11.5 K/UL (4.8-10.8)
[2018-04-30 06:00] LABS: ANION GAP 16 mmol/L (5-15); BLOOD UREA NITROGEN 11 mg/dL (7-18); CALCIUM 10.1 MG/DL (8.5-10.1); CARBON DIOXIDE 22 MMOL/L (21-32); CHLORIDE 103 MMOL/L (98-107); POTASSIUM 3.3 MMOL/L (3.5-5.1); SODIUM 141 MMOL/L (136-145)
[2018-04-30 06:04] LABS: ALANINE AMINOTRANSFERASE 21 U/L (12-78); ALBUMIN 4.8 G/DL (3.4-5.0); ALBUMIN/GLOBULIN RATIO 1.3 (1.0-2.7); ALKALINE PHOSPHATASE 53 U/L (46-116); ASPARTATE AMINO TRANSFERASE 21 U/L (15-37); BILIRUBIN,TOTAL 0.5 MG/DL (0.2-1.0)
[2018-04-30] MEDS ORDERED: DiphenhydrAMINE 50mg/ml Inj IVP ONE (07:30)
[2018-04-30] MEDS ORDERED: Metoclopramide 10mg/2ml Inj IVP ONE (07:30)
[2018-04-30] MEDS ORDERED: LORazepam Inj 2mg/ml 1ml IV ONE (07:30)
[2018-04-30 09:33] VITALS: BP 133/55
== END 2018-04-30 09:33 | disposition home or self-care (01) ==
LOC: EMR 05:18
DX: G43.A0 Cyclical vomiting, in migraine, not intractable (principal); J45.909 Unspecified asthma, uncomplicated; Z88.2 Allergy status to sulfonamides
CPT/HCPCS: 36415; 80053; 83690; 85025; 96361; 96372; 96374; 96375; 99283; J1200; J1630; J2405; J2765; J7040; S0028

== ENCOUNTER 2018-05-01 08:22 | Inpatient (IN) | payer MEDICAID ==
[~2018-05-01] VITALS: Ht 172.7 cm; Wt 58.7 kg
[2018-05-01 08:37] VITALS: BP 152/101
[2018-05-01] MEDS ORDERED: LORazepam Inj 2mg/ml 1ml IV ONE (08:45)
[2018-05-01] MEDS ORDERED: DiphenhydrAMINE 50mg/ml Inj IVP ONE (08:45)
--- NOTE | 2018-05-01 08:52 | Emergency Room Report ---
History of Present Illness General Chief Complaint: Vomiting Source: Patient Present Illness HPI Patient present with reports of persistent nausea vomiting Diffuse abdominal pain Patient reports that she was feeling better after the emergency room However again started to have increased nausea Denies any chest pain denies any fevers or chills Patient reports that she has been diagnosed with cyclical vomiting syndrome Denies any neck pain or photophobia Allergies: Coded Allergies: PROCHLORPERAZINE (Verified Allergy, Intermediate, hives on left forearm, ) allergic reaction from pt was admitted to ED on 01/05/17 SULFA (SULFONAMIDE ANTIBIOTICS) (Verified Allergy, Unknown, 02/23/11) Uncoded Allergies: SULFA (Allergy, Unknown, 11/18/17) Patient History Past Medical History: see triage record Pertinent Family History: none Now: No Reviewed Nursing Documentation: PMH: Agreed; PSxH: Agreed Nursing Documentation-PMH Hx Cardiac Problems: No Hx Hypertension: No Hx Pacemaker: No Hx Asthma: Yes Hx COPD: No Hx Diabetes: No Hx Cancer: No Hx Dialysis: No Hx Neurological Problems: No Hx Cerebrovascular Accident: No Hx Transient Ischemic Attacks: No Hx Dementia: No Hx Alzheimer's Disease: No Hx Parkinson's Disease: No Hx Meningitis: No Hx Encephalitis: No Hx Seizures: No Hx Epilepsy: No Hx Multiple Sclerosis: No Hx Cerebral Palsy: No Hx Amyotrophic Lat Sclerosis: No Hx Guillian-[place] Syndrome: No Hx Paralysis: No Hx Peripheral Neuropathy: No Hx Spinal Cord Injury: No Hx Head Trauma: No Hx Traumatic Brain Injury: No Hx Memory Loss: No Hx Concentration Difficulty: No Hx Speech Problem: No Hx Tremors: No Hx Vertigo: No Hx Dizziness: No Hx Syncope: No Hx Headaches: No Hx Aphasia: No Hx Dysphasia: No Hx Numbness: No Hx Weakness: No Hx Fatigue: No Hx Neurologic Surgery: No Hx Brain Shunt: No Review of Systems All Other Systems: negative except mentioned in HPI Physical Exam Vital Signs Date Time Temp Pulse Resp B/P (MAP) Pulse Ox O2 Delivery O2 Flow Rate FiO2 05/01/18 08:29 97.6 95 20 164/103 97 Room Air 97.5 Sp02 EP Interpretation: reviewed, normal General Appearance: mild distress - Appears nauseated Head: normocephalic, atraumatic Eyes: bilateral eye PERRL, bilateral eye EOMI ENT: hearing grossly normal, normal pharynx, TMs + canals normal, uvula midline Neck: full range of motion, supple, no meningismus, no bony tend Respiratory: lungs clear, normal breath sounds, no rhonchi, no respiratory distress, no retraction, no accessory muscle use Cardiovascular #1: normal peripheral pulses, regular rate, rhythm, no edema, no gallop, no JVD, no murmur Gastrointestinal: normal bowel sounds, non tender, soft, no mass, no organomegaly, non-distended, no guarding, no hernia, no pulsatile mass, no rebound Genitourinary: no CVA tenderness Musculoskeletal: normal inspection Neurologic: oriented x3, responsive, machine crater III-XII nml as tested, motor strength/ tone normal, sensory intact Psychiatric: mood/affect normal Skin: normal color, no rash, warm/dry, palpation normal Lymphatic: normal inspection, no adenopathy Medical Decision Making Diagnostic Impression: Primary Impression: Vomiting Additional Impressions: Abdominal pain Intractable nausea and vomiting ER Course With the patient's history and examination, multiple differentials considered, including but not limited to , ectopic , ovarian torsion, gastritis, cholecystitis, pancreatitis, appendicitis Patient initially treated with IV hydration and antiemetics with benzodiazepine patient did better for several hours however again begins vomiting given her multiple presentation to the emergency room patient is requested for admission for further care Labs Test 05/01/18 09:00 White Blood Count 9.5 K/UL (4.8-10.8) Red Blood Count 4.42 M/UL (4.20-5.40) Hemoglobin 13.7 G/DL (12.0-16.0) Hematocrit 38.9 % (37.0-47.0) Mean Corpuscular Volume 88 FL (80-99) Mean Corpuscular Hemoglobin 30.9 PG (27.0-31.0) Mean Corpuscular Hemoglobin Concent 35.1 G/DL (32.0-36.0) Red Cell Distribution Width 11.3 % (11.6-14.8) Platelet Count 217 K/UL (150-450) Mean Platelet Volume 6.1 FL (6.5-10.1) Neutrophils (%) (Auto) 79.2 % (45.0-75.0) Lymphocytes (%) (Auto) 15.9 % (20.0-45.0) Monocytes (%) (Auto) 4.0 % (1.0-10.0) Eosinophils (%) (Auto) 0.0 % (0.0-3.0) Basophils (%) (Auto) 0.9 % (0.0-2.0) Sodium Level 139 MMOL/L (136-145) Potassium Level 3.6 MMOL/L (3.5-5.1) Chloride Level 102 MMOL/L (98-107) Carbon Dioxide Level 19 MMOL/L (21-32) Anion Gap 18 mmol/L (5-15) Blood Urea Nitrogen 13 mg/dL (7-18) Creatinine 0.9 MG/DL (0.55-1.30) Estimat Glomerular Filtration Rate > 60 mL/min (>60) Glucose Level 150 MG/DL (74-106) Calcium Level 9.4 MG/DL (8.5-10.1) Last Vital Signs Date Time Temp Pulse Resp B/P (MAP) Pulse Ox O2 Delivery O2 Flow Rate FiO2 05/01/18 08:37 97.3 86 14 152/101 100 Room Air 97.3 Status: improved Disposition: ADMITTED INPATIENT Condition: Serious Referrals: NON PHYSICIAN (PCP) Haresh Harrison DO May 01, 2018 08:52
[2018-05-01 09:13] LABS: BASOPHILS % (AUTO) 0.9 % (0.0-2.0); HEMATOCRIT 38.9 % (37.0-47.0); HEMOGLOBIN 13.7 G/DL (12.0-16.0); LYMPHOCYTES % (AUTO) 15.9 % (20.0-45.0); MEAN CORPUSCULAR VOLUME 88 FL (80-99); NEUTROPHILS % (AUTO) 79.2 % (45.0-75.0); PLATELET COUNT 217 K/UL (150-450); RED BLOOD COUNT 4.42 M/UL (4.20-5.40); RED CELL DISTRIBUTION WIDTH 11.3 % (11.6-14.8); WHITE BLOOD COUNT 9.5 K/UL (4.8-10.8)
[2018-05-01 09:28] LABS: ANION GAP 18 mmol/L (5-15); BLOOD UREA NITROGEN 13 mg/dL (7-18); CALCIUM 9.4 MG/DL (8.5-10.1); CARBON DIOXIDE 19 MMOL/L (21-32); CHLORIDE 102 MMOL/L (98-107); CREATININE 0.9 MG/DL (0.55-1.30); POTASSIUM 3.6 MMOL/L (3.5-5.1); SODIUM 139 MMOL/L (136-145)
[2018-05-01 11:33] VITALS: BP 170/89
[2018-05-01 12:00] VITALS: BP 154/88
[2018-05-01 12:35] VITALS: BP 130/58
[2018-05-01] MEDS: D5NS 1,000 ML IV SCH (13:56)
[2018-05-01] MEDS: Enoxaparin 40mg Inj SUBQ SCH (13:57)
--- NOTE | 2018-05-01 15:33 | GI Initial Consult Note ---
History of Present Illness General Date patient seen: May 01, 2018 Time patient seen: 15:28 Reason for Hospitalization: Vomiting Referring physician: GRIFFIN SMITH Reason for Consultation: CYCLC VOMITING Present Illness HPI Patient present with reports of persistent nausea vomiting Diffuse abdominal pain Patient reports that she was feeling better after the emergency room However again started to have increased nausea Denies any chest pain denies any fevers or chills Patient reports that she has been diagnosed with cyclical vomiting syndrome Denies any neck pain or photophobia GI consulted for persistent vomiting. Pt seen in ED, awake A&O c/o of nausea without any active vomiting. Reported last emesis was yesterday. The patient had been admitted prior with similar condition, previously diagnosed with cyclic vomiting. The patient admitted to marijuana use day prior to when her active vomiting occurred. No history of endoscopy / colonoscopy. Home Meds Active Scripts Ondansetron (Zofran) 4 Mg Tablet, 4 MG ORAL Q6H PRN for Nausea & Vomiting, #30 TAB 0 Refills Prov:Sj Hill MD 04/29/18 Omeprazole Magnesium (PRILOSEC OTC) 20 Mg Tablet.dr, 20 MG ORAL DAILY, #14 TAB Prov:Sj Hill MD 04/29/18 Lorazepam* (ATIVAN*) 1 Mg Tablet, 1 MG ORAL THREE TIMES A DAY, #20 TAB Prov:Miguel Rust MD 03/28/18 Ondansetron Odt* (ZOFRAN ODT*) 4 Mg Tab.rapdis, 4 MG ORAL Q6H PRN for Nausea & Vomiting, #30 TAB 0 Refills Prov:Miguel Rust MD 03/28/18 Ondansetron Odt* (ZOFRAN ODT*) 4 Mg Tab.rapdis, 4 MG ORAL Q8H PRN for Nausea & Vomiting, #30 TAB 0 Refills Prov:Sj Hill MD 02/04/18 Ondansetron Odt* (ZOFRAN ODT*) 4 Mg Tab.rapdis, 4 MG ORAL Q6H PRN for Nausea & Vomiting, #30 TAB 0 Refills Prov:Jeremiah Arzola M.D. 02/03/18 Ondansetron Odt* (ZOFRAN ODT*) 4 Mg Tab.rapdis, 4 MG ORAL Q6H PRN for Nausea & Vomiting, #15 TAB 0 Refills Prov:Jeremiah Arzola M.D. 11/18/17 Amitriptyline HCl (ELAVIL*) 25 Mg Tablet, 25 MG ORAL BEDTIME for 30 Days, #30 TAB 2 Refills Prov:Drew Schmitz M.D. 10/10/17 Metoclopramide Hcl* (REGLAN*) 10 Mg Tablet, 10 MG ORAL THREE TIMES A DAY PRN for 14 Days, #30 TAB 1 Refill nausea/vomiting Prov:Drew Schmitz M.D. 10/10/17 Ondansetron Odt* (ZOFRAN ODT*) 4 Mg Tab.rapdis, 4 MG ORAL Q6H PRN for Nausea & Vomiting, #30 TAB 0 Refills Prov:Bon Edwards MD 10/04/17 Promethazine Hcl (PROMETHAZINE HCL) 25 Mg Supp.rect, 25 MG RC Q6HR, #15 SUPP Prov:ODALIS BIRD M.D. 07/15/17 Ondansetron Odt* (ZOFRAN ODT*) 4 Mg Tab.rapdis, 4 MG ORAL Q6H PRN for Nausea & Vomiting, #30 TAB 0 Refills Prov:Bon Edwards MD 05/30/17 Reported Medications Albuterol Sulfate* (PROAIR HFA*) 8.5 Gm Hfa.aer.ad, 1 PUFF INH Q6H, #8.5 GM 0 Refills 01/06/17 Lorazepam* (ATIVAN*) 1 Mg Tablet, 1 MG ORAL Q4HR PRN for Nausea & Vomiting, TAB 01/04/17 Ondansetron Hcl* (ZOFRAN*) 8 Mg Tablet, 8 MG ORAL Q4HR PRN for Nausea & Vomiting , #4 TAB 0 Refills 01/04/17 Med list reviewed/reconciled: Yes Allergies: Coded Allergies: PROCHLORPERAZINE (Verified Allergy, Intermediate, hives on left forearm, ) allergic reaction from pt was admitted to ED on 01/05/17 SULFA (SULFONAMIDE ANTIBIOTICS) (Verified Allergy, Unknown, 02/23/11) Uncoded Allergies: SULFA (Allergy, Unknown, 11/18/17) Patient History PMH Narrative Past Medical History: see triage record Pertinent Family History: none Now: No Reviewed Nursing Documentation: PMH: Agreed; PSxH: Agreed Nursing Documentation-PMH Hx Cardiac Problems: No Hx Hypertension: No Hx Pacemaker: No Hx Asthma: Yes Hx COPD: No Hx Diabetes: No Hx Cancer: No Hx Dialysis: No Hx Neurological Problems: No Hx Cerebrovascular Accident: No Hx Transient Ischemic Attacks: No Hx Dementia: No Hx Alzheimer's Disease: No Hx Parkinson's Disease: No Hx Meningitis: No Hx Encephalitis: No Hx Seizures: No Hx Epilepsy: No Hx Multiple Sclerosis: No Hx Cerebral Palsy: No Hx Amyotrophic Lat Sclerosis: No Hx [place] Syndrome: No Hx Paralysis: No Hx Peripheral Neuropathy: No Hx Spinal Cord Injury: No Hx Head Trauma: No Hx Traumatic Brain Injury: No Hx Memory Loss: No Hx Concentration Difficulty: No Hx Speech Problem: No Hx Tremors: No Hx Vertigo: No Hx Dizziness: No Hx Syncope: No Hx Headaches: No Hx Aphasia: No Hx Dysphasia: No Hx Numbness: No Hx Weakness: No Hx Fatigue: No Hx Neurologic Surgery: No Hx Brain Shunt: No Social History: Reports: alcohol use, drug use Review of Systems All Other Systems: negative except mentioned in HPI Physical Exam Vital Signs Date Time Temp Pulse Resp B/P (MAP) Pulse Ox O2 Delivery O2 Flow Rate FiO2 05/01/18 08:29 97.6 95 20 164/103 97 Room Air 97.5 Sp02 EP Interpretation: reviewed, normal Labs Laboratory Tests Test 05/01/18 09:00 White Blood Count 9.5 K/UL (4.8-10.8) Red Blood Count 4.42 M/UL (4.20-5.40) Hemoglobin 13.7 G/DL (12.0-16.0) Hematocrit 38.9 % (37.0-47.0) Mean Corpuscular Volume 88 FL (80-99) Mean Corpuscular Hemoglobin 30.9 PG (27.0-31.0) Mean Corpuscular Hemoglobin Concent 35.1 G/DL (32.0-36.0) Red Cell Distribution Width 11.3 % (11.6-14.8) L Platelet Count 217 K/UL (150-450) Mean Platelet Volume 6.1 FL (6.5-10.1) L Neutrophils (%) (Auto) 79.2 % (45.0-75.0) H Lymphocytes (%) (Auto) 15.9 % (20.0-45.0) L Monocytes (%) (Auto) 4.0 % (1.0-10.0) Eosinophils (%) (Auto) 0.0 % (0.0-3.0) Basophils (%) (Auto) 0.9 % (0.0-2.0) Sodium Level 139 MMOL/L (136-145) Potassium Level 3.6 MMOL/L (3.5-5.1) Chloride Level 102 MMOL/L (98-107) Carbon Dioxide Level 19 MMOL/L (21-32) L Anion Gap 18 mmol/L (5-15) H Blood Urea Nitrogen 13 mg/dL (7-18) Creatinine 0.9 MG/DL (0.55-1.30) Estimat Glomerular Filtration Rate > 60 mL/min (>60) Glucose Level 150 MG/DL (74-106) H Calcium Level 9.4 MG/DL (8.5-10.1) General Appearance: well appearing, no apparent distress, alert Head: normocephalic EENT: PERRL/EOMI, normal ENT inspection Neck: supple Respiratory: normal breath sounds, no respiratory distress Cardiovascular: normal rate Gastrointestinal: normal inspection, non tender, soft, normal bowel sounds, non -distended Rectal: deferred Genitourinary: no CVA tenderness Musculoskeletal: normal inspection, back normal Neurologic: normal inspection, alert, oriented x3, responsive Psychiatric: normal inspection, judgement/insight normal, memory normal Skin: normal inspection, normal color, no rash, warm/dry, palpation normal, well hydrated Lymphatic: normal inspection, no adenopathy Current Medications Current Medications Medications (Trade) Dose Ordered Sig/Shanta Route PRN Reason Start Time Stop Time Status Last Admin Dose Admin Acetaminophen (Tylenol) 650 mg Q4H PRN ORAL Mild Pain (Pain Scale 1-3) 05/01/18 12:45 05/31/18 12:44 Dextrose (Dextrose 50%) 25 ml STAT PRN IV Hypoglycemia 05/01/18 12:45 05/31/18 12:44 Dextrose (Dextrose 50%) 50 ml STAT PRN IV Hypoglycemia 05/01/18 12:45 05/31/18 12:44 Dextrose/Sodium Chloride 1,000 ml @ 100 mls/hr Q10H IV 05/01/18 13:30 05/31/18 13:29 05/01/18 13:56 Diphenhydramine HCl (Benadryl) 25 mg Q6H PRN ORAL Itching/Pruritis 05/01/18 12:45 05/31/18 12:44 Docusate Sodium (Colace) 100 mg EVERY 12 HOURS ORAL 05/01/18 21:00 05/31/18 20:59 Enoxaparin Sodium (Lovenox) 40 mg Q24H SUBQ 05/01/18 13:45 05/31/18 13:44 05/01/18 13:57 Lorazepam (Ativan 2mg/ml 1ml) 1 mg Q4H PRN IV For Anxiety 05/01/18 15:30 05/08/18 15:29 UNV Metoclopramide HCl (Reglan) 5 mg Q8H PRN IVP Persistent vomiting 05/01/18 13:00 05/31/18 12:59 Ondansetron HCl (Zofran) 8 mg Q6H PRN IVP Nausea & Vomiting 05/01/18 12:45 05/31/18 12:44 05/01/18 13:06 Zolpidem Tartrate (Ambien) 5 mg HSPRN PRN ORAL Insomnia 05/01/18 12:45 05/08/18 12:44 GI: Plan Problems: (1) Intractable nausea and vomiting (2) Cyclic vomiting syndrome (3) Cannabis abuse (4) Dehydration (5) Abdominal pain Plan symptomatic treatment at this time adv diet as tolerated zofran 8mg prn, reglan low dose for persistent vomiting IV/PO hydration + electrolyte correction avoid pain medication which can exacerbate vomiting ppi fu labs, lipase Discussed with Dr. Wood. Thank you for this patient referral, we will follow. The patient was seen and examined at bedside and all new and available data was reviewed in the patients chart. I agree with the above findings, impression and plan. (Patient seen earlier today. Signature stamp does not reflect patient encounter time.). - MD Teresa Dawson,[facility] FEED ADVISER May 01, 2018 15:33
[2018-05-01 16:00] VITALS: BP 159/84
[2018-05-01] MEDS: LORazepam Inj 2mg/ml 1ml IV PRN ×2 (17:05→21:33)
--- NOTE | 2018-05-01 19:31 | History and Physical Report ---
DATE OF ADMISSION: 05/01/2018 REASON FOR ADMISSION: 1. Dehydration. 2. Nausea and vomiting, recurrence. HISTORY OF PRESENT ILLNESS: The patient is a 33-year-old female, who presented to emergency room for persistent nausea and vomiting and diffuse nonspecific abdominal pain over the last 3 to 4 days. The patient says she has been diagnosed in the past with cyclical vomiting syndrome. She says that currently she was not feeling well, throwing up over the last 4 days and has not been able to eat or drink anything. She says that the things that make her abdominal pain and vomiting improve are narcotics and Zofran. The patient is resting comfortably. No neck pain. No photophobia. No chest pain. No shortness of breath. PAST MEDICAL HISTORY: 1. Cyclic vomiting syndrome. 2. External hemorrhoids. PAST SURGICAL HISTORY: None. ALLERGIES: 1. Sulfa. 2. Prochlorperazine. FAMILY HISTORY: None. REVIEW OF SYSTEMS: NEUROLOGIC: The patient denies headache, change in vision, syncope or presyncopal episodes. CARDIOVASCULAR: No current chest pain, palpitations, or angina. PULMONARY: No difficulty breathing, productive cough, or sputum. GASTROINTESTINAL/GENITOURINARY: The patient having nausea and vomiting. No diarrhea. ENDOCRINOLOGY: No night sweats, fevers or chills. PHYSICAL EXAMINATION: GENERAL: The patient is awake, alert, in mild distress per her notation. VITAL SIGNS: Blood pressure 170/89, respiratory rate 15, pulse 91, and temperature 98.9 degrees. HEENT: Extraocular muscles intact. No lymphadenopathy noted. CARDIOVASCULAR: S1 and S2. No rubs or gallops. PULMONARY: Clear to auscultation bilaterally. No rales, rhonchi, or wheezes. ABDOMEN: Nondistended and nontender EXTREMITY: No edema noted. Fair pedal pulses. SKIN: Revealed no rashes. LABORATORY AND DIAGNOSTIC DATA: Labs dated 05/01/2018, white cell count 9.5, hemoglobin 13.7, and platelet count 217. Sodium 139, potassium 3.6, BUN 13, creatinine 0.9, calcium 9.4. ASSESSMENT AND PLAN: 1. Recurrent nausea and vomiting with previous diagnosis of cyclic vomiting syndrome. At this time, we will aggressively hydrate the patient for dehydration and consult Gastroenterology for further evaluation and management. 2. Dehydration. The patient will be aggressively hydrated. Follow electrolytes, currently stable. 3. Possibility of narcotic dependency. The patient at this time is requesting IV Zofran and narcotics. At this time, Zofran will be given and narcotics held until GI evaluates the patient. 4. DVT prophylaxis with Lovenox. Joni Montes MD DR: MACARENA JOB#: [id number] CC:
[2018-05-01 20:00] VITALS: BP 160/109
[2018-05-01] MEDS: Docusate 100mg cap ORAL SCH (20:21)
[2018-05-01] MEDS: Zolpidem 5mg tab ORAL PRN (20:21)
[2018-05-02] VITALS: BP 185/110
[2018-05-02] MEDS: Metoclopramide 10mg/2ml Inj IVP PRN ×3 (00:02→20:26)
[2018-05-02] MEDS: D5NS 1,000 ML IV SCH ×3 (00:02→20:26)
[2018-05-02] MEDS: LORazepam Inj 2mg/ml 1ml IV PRN ×3 (04:50→22:10)
[2018-05-02 04:59] LABS: BASOPHILS % (AUTO) 0.4 % (0.0-2.0); EOSINOPHILS % (AUTO) 0.1 % (0.0-3.0); HEMATOCRIT 36.6 % (37.0-47.0); HEMOGLOBIN 13.3 G/DL (12.0-16.0); LYMPHOCYTES % (AUTO) 18.8 % (20.0-45.0); MEAN CORPUSCULAR VOLUME 87 FL (80-99); MONOCYTES % (AUTO) 6.6 % (1.0-10.0); NEUTROPHILS % (AUTO) 74.1 % (45.0-75.0); PLATELET COUNT 239 K/UL (150-450); RED BLOOD COUNT 4.22 M/UL (4.20-5.40); RED CELL DISTRIBUTION WIDTH 10.9 % (11.6-14.8); WHITE BLOOD COUNT 15.2 K/UL (4.8-10.8)
[2018-05-02 05:02] LABS: ANION GAP 15 mmol/L (5-15); BLOOD UREA NITROGEN 7 mg/dL (7-18); CALCIUM 8.8 MG/DL (8.5-10.1); CARBON DIOXIDE 22 MMOL/L (21-32); CHLORIDE 105 MMOL/L (98-107); CREATININE 0.8 MG/DL (0.55-1.30); PHOSPHORUS 2.6 MG/DL (2.5-4.9); POTASSIUM 2.8 MMOL/L (3.5-5.1); SODIUM 141 MMOL/L (136-145)
[2018-05-02 08:00] VITALS: BP 171/108
[2018-05-02] MEDS: Docusate 100mg cap ORAL SCH ×2 (08:10→20:25)
--- NOTE | 2018-05-02 08:57 | Nephrology Progress Note ---
Assessment/Plan Assessment/Plan 1. Cyclic N/V- IVF's, mgmt per GI - agree with their assestment to avoid narcotics 2. Abd Pain- patient requestuing narcotics. No clear etiology for pain and in no overt apparent distress - cslt Gen surg for clearance and plan for DC 3. Leukocytosis- WBC 9--->15?? repeat CBC STAT prior to evaluation 4. DVT prophylaxis with heparin sub q Subjective Date patient seen: May 02, 2018 Time patient seen: 08:54 ROS Limited/Unobtainable: No Gastrointestinal/Abdominal: Reports: nausea, poor appetite Allergies: Coded Allergies: PROCHLORPERAZINE (Verified Allergy, Intermediate, hives on left forearm, ) allergic reaction from pt was admitted to ED on 01/05/17 SULFA (SULFONAMIDE ANTIBIOTICS) (Verified Allergy, Unknown, 02/23/11) Uncoded Allergies: SULFA (Allergy, Unknown, 11/18/17) All Systems: reviewed and negative except above Subjective Patient in no distress when entering room, but requesting narcotics for abdominal pain Objective Last 24 Hour Vital Signs Date Time Temp Pulse Resp B/P (MAP) Pulse Ox O2 Delivery O2 Flow Rate FiO2 05/02/18 08:00 98.4 88 19 171/108 97 Room Air 98.4 05/02/18 00:00 97.2 108 20 185/110 98 Room Air 97.2 05/01/18 20:00 97.7 89 18 160/109 97 Room Air 97.7 05/01/18 16:00 98.0 99 18 159/84 98 Room Air 98.0 05/01/18 13:39 98.3 86 15 158/68 97 Room Air 98.3 05/01/18 12:35 98.3 69 21 130/58 97 Room Air 98.3 05/01/18 12:00 68 16 154/88 98 Room Air 05/01/18 11:33 98.9 91 15 170/89 99 Room Air 98.9 Intake and Output 05/01/18 05/02/18 19:00 07:00 Intake Total 1500 ml 1160 ml Balance 1500 ml 1160 ml Intake Oral 0 ml 160 ml IV Total 1500 ml 1000 ml # Voids 1 2 Laboratory Tests 05/01/18 09:00: White Blood Count 9.5, Red Blood Count 4.42, Hemoglobin 13.7, Hematocrit 38.9, Mean Corpuscular Volume 88, Mean Corpuscular Hemoglobin 30.9, Mean Corpuscular Hemoglobin Concent 35.1, Red Cell Distribution Width 11.3L, Platelet Count 217, Mean Platelet Volume 6.1L, Neutrophils (%) (Auto) 79.2H, Lymphocytes (%) (Auto) 15.9L, Monocytes (%) (Auto) 4.0, Eosinophils (%) (Auto) 0.0, Basophils (%) (Auto ) 0.9, Sodium Level 139, Potassium Level 3.6, Chloride Level 102, Carbon Dioxide Level 19L, Anion Gap 18H, Blood Urea Nitrogen 13, Creatinine 0.9, Estimat Glomerular Filtration Rate > 60, Glucose Level 150H, Calcium Level 9.4 05/02/18 04:20: White Blood Count 15.2#H, Red Blood Count 4.22, Hemoglobin 13.3, Hematocrit 36.6L, Mean Corpuscular Volume 87, Mean Corpuscular Hemoglobin 31.6H, Mean Corpuscular Hemoglobin Concent 36.4H, Red Cell Distribution Width 10.9L, Platelet Count 239, Mean Platelet Volume 6.3L, Neutrophils (%) (Auto) 74.1, Lymphocytes (%) (Auto) 18.8L, Monocytes (%) (Auto) 6.6, Eosinophils (%) (Auto) 0.1, Basophils (%) (Auto) 0.4, Sodium Level 141, Potassium Level 2.8L, Chloride Level 105, Carbon Dioxide Level 22, Anion Gap 15, Blood Urea Nitrogen 7, Creatinine 0.8, Estimat Glomerular Filtration Rate > 60, Glucose Level 125H, Calcium Level 8.8, Phosphorus Level 2.6, Magnesium Level 2.0, Lipase 273 Height (Feet): 5 Height (Inches): 8.00 Weight (Pounds): 129 General Appearance: WD/WN, no apparent distress EENT: normal ENT inspection, TMs normal Neck: normal alignment, supple Cardiovascular: normal rate, regular rhythm Respiratory/Chest: lungs clear, normal breath sounds Abdomen: normal bowel sounds, non tender Joni Montes M.D. May 02, 2018 08:57
[2018-05-02 11:05] LABS: BASOPHILS % (AUTO) 0.5 % (0.0-2.0); HEMATOCRIT 38.4 % (37.0-47.0); HEMOGLOBIN 13.4 G/DL (12.0-16.0); LYMPHOCYTES % (AUTO) 13.8 % (20.0-45.0); MEAN CORPUSCULAR VOLUME 87 FL (80-99); NEUTROPHILS % (AUTO) 80.7 % (45.0-75.0); PLATELET COUNT 236 K/UL (150-450); RED BLOOD COUNT 4.41 M/UL (4.20-5.40); RED CELL DISTRIBUTION WIDTH 10.9 % (11.6-14.8); WHITE BLOOD COUNT 13.8 K/UL (4.8-10.8)
--- NOTE | 2018-05-02 11:08 | GI Progress Note ---
Assessment/Plan Problems: (1) Intractable nausea and vomiting ICD Codes: R11.2 - Nausea with vomiting, unspecified SNOMED: 638925852, 720904141 (2) Cannabis abuse ICD Codes: F12.10 - Cannabis abuse, uncomplicated SNOMED: 18479465 (3) Cyclic vomiting syndrome ICD Codes: G43.A0 - Cyclical vomiting, not intractable SNOMED: 24476865 (4) Dehydration ICD Codes: E86.0 - Dehydration SNOMED: 05649295 (5) Abdominal pain ICD Codes: R10.9 - Unspecified abdominal pain SNOMED: 83687892 (6) Vomiting ICD Codes: R11.10 - Vomiting, unspecified SNOMED: 569335050 (7) Leukocytosis ICD Codes: D72.829 - Leukocytosis SNOMED: 399133861 Status: stable Status Narrative Discussed with Dr. Wood. Assessment/Plan Hcg negative lipase normal symptomatic treatment at this time adv diet as tolerated, regular for lunch zofran 8mg prn, reglan low dose for persistent vomiting IV/PO hydration + electrolyte correction avoid pain medication which can exacerbate vomiting ppi fu labs Subjective Subjective still has nausea c/o of vomiting Objective Last 24 Hour Vital Signs Date Time Temp Pulse Resp B/P (MAP) Pulse Ox O2 Delivery O2 Flow Rate FiO2 05/02/18 08:00 98.4 88 19 171/108 97 Room Air 98.4 05/02/18 00:00 97.2 108 20 185/110 98 Room Air 97.2 05/01/18 20:00 97.7 89 18 160/109 97 Room Air 97.7 05/01/18 16:00 98.0 99 18 159/84 98 Room Air 98.0 05/01/18 13:39 98.3 86 15 158/68 97 Room Air 98.3 05/01/18 12:35 98.3 69 21 130/58 97 Room Air 98.3 05/01/18 12:00 68 16 154/88 98 Room Air 05/01/18 11:33 98.9 91 15 170/89 99 Room Air 98.9 Intake and Output 05/01/18 05/02/18 19:00 07:00 Intake Total 1500 ml 1160 ml Balance 1500 ml 1160 ml Intake Oral 0 ml 160 ml IV Total 1500 ml 1000 ml # Voids 1 2 Laboratory Tests Test 6/1/18 04:20 05/02/18 09:50 05/02/18 10:56 White Blood Count 15.2 K/UL (4.8-10.8) #H Pending Red Blood Count 4.22 M/UL (4.20-5.40) Pending Hemoglobin 13.3 G/DL (12.0-16.0) Pending Hematocrit 36.6 % (37.0-47.0) L Pending Mean Corpuscular Volume 87 FL (80-99) Pending Mean Corpuscular Hemoglobin 31.6 PG (27.0-31.0) H Pending Mean Corpuscular Hemoglobin Concent 36.4 G/DL (32.0-36.0) H Pending Red Cell Distribution Width 10.9 % (11.6-14.8) L Pending Platelet Count 239 K/UL (150-450) Pending Mean Platelet Volume 6.3 FL (6.5-10.1) L Pending Neutrophils (%) (Auto) 74.1 % (45.0-75.0) Pending Lymphocytes (%) (Auto) 18.8 % (20.0-45.0) L Pending Monocytes (%) (Auto) 6.6 % (1.0-10.0) Pending Eosinophils (%) (Auto) 0.1 % (0.0-3.0) Pending Basophils (%) (Auto) 0.4 % (0.0-2.0) Pending Sodium Level 141 MMOL/L (136-145) Potassium Level 2.8 MMOL/L (3.5-5.1) L Chloride Level 105 MMOL/L (98-107) Carbon Dioxide Level 22 MMOL/L (21-32) Anion Gap 15 mmol/L (5-15) Blood Urea Nitrogen 7 mg/dL (7-18) Creatinine 0.8 MG/DL (0.55-1.30) Estimat Glomerular Filtration Rate > 60 mL/min (>60) Glucose Level 125 MG/DL (74-106) H Calcium Level 8.8 MG/DL (8.5-10.1) Phosphorus Level 2.6 MG/DL (2.5-4.9) Magnesium Level 2.0 MG/DL (1.8-2.4) Lipase 273 U/L (73-393) Urine HCG, Qualitative Negative (NEGATIVE) Height (Feet): 5 Height (Inches): 8.00 Weight (Pounds): 129 General Appearance: WD/WN, no apparent distress, alert Cardiovascular: normal rate Respiratory/Chest: normal breath sounds, no respiratory distress Abdominal Exam: normal bowel sounds, non tender, soft Extremities: normal range of motion, non-tender Soraida Moore NP May 02, 2018 11:08
[2018-05-02 12:00] VITALS: BP 149/97
--- NOTE | 2018-05-02 12:39 | Consultation ---
History of Present Illness General Date patient seen: May 02, 2018 Chief Complaint: Vomiting Referring physician: GRIFFIN SMITH Reason for Consultation: CYCLC VOMITING Present Illness HPI 33 year old female presented with intermittent nausea and emesis. States that she was well until a few 4-5 days ago when she began to develop nausea followed by non bloody non bilious emesis. states it has been progressively increasing in duration since so she came to ED for evaluation. denies any specific abdominal pain. no recent travel. no change in diet. normal BM's and flatus. has similar episodes every few months. currently no long her nausea or emesis. surgery called to evaluate for possible abdominal etiology to symptoms. Allergies: Coded Allergies: PROCHLORPERAZINE (Verified Allergy, Intermediate, hives on left forearm, ) allergic reaction from pt was admitted to ED on 01/05/17 SULFA (SULFONAMIDE ANTIBIOTICS) (Verified Allergy, Unknown, 02/23/11) Uncoded Allergies: SULFA (Allergy, Unknown, 11/18/17) Medication History Scheduled Albuterol Sulfate* (Proair Hfa*), 1 PUFF INH Q6H, (Reported) Amitriptyline HCl (Elavil*), 25 MG ORAL BEDTIME Lorazepam* (Ativan*), 1 MG ORAL THREE TIMES A DAY Omeprazole Magnesium (Prilosec Otc), 20 MG ORAL DAILY Promethazine Hcl (Promethazine Hcl), 25 MG RC Q6HR Scheduled PRN Lorazepam* (Ativan*), 1 MG ORAL Q4HR PRN for Nausea & Vomiting, (Reported) Metoclopramide Hcl* (Reglan*), 10 MG ORAL THREE TIMES A DAY PRN Ondansetron (Zofran), 4 MG ORAL Q6H PRN for Nausea & Vomiting Ondansetron Hcl* (Zofran*), 8 MG ORAL Q4HR PRN for Nausea & Vomiting, (Reported) Ondansetron Odt* (Zofran Odt*), 4 MG ORAL Q6H PRN for Nausea & Vomiting Ondansetron Odt* (Zofran Odt*), 4 MG ORAL Q6H PRN for Nausea & Vomiting Ondansetron Odt* (Zofran Odt*), 4 MG ORAL Q6H PRN for Nausea & Vomiting Ondansetron Odt* (Zofran Odt*), 4 MG ORAL Q6H PRN for Nausea & Vomiting Ondansetron Odt* (Zofran Odt*), 4 MG ORAL Q8H PRN for Nausea & Vomiting Ondansetron Odt* (Zofran Odt*), 4 MG ORAL Q6H PRN for Nausea & Vomiting Patient History History Provided By: Patient, Medical Record, PMD Healthcare decision maker Resuscitation status Advanced Directive on File Past Medical/Surgical History Past Medical/Surgical History: (1) Hypokalemia (2) Ovarian cyst (3) Intractable cyclical vomiting (4) Intractable cyclical vomiting (5) Hypercalcemia (6) Elevated lipase (7) vomiting able to tolerate PO fluids (8) Hyponatremia (9) Nausea and vomiting in adult patient (10) Hypokalemia (11) Vomiting (12) Leukocytosis (13) Abdominal pain (14) Dehydration (15) Cannabis abuse (16) Cyclic vomiting syndrome (17) Intractable nausea and vomiting Review of Systems All Other Systems: negative except mentioned in HPI Physical Exam General Appearance: no apparent distress Lines, tubes and drains: peripheral HEENT: normocephalic, mucous membranes moist Neck: normal inspection Respiratory/Chest: normal breath sounds, no respiratory distress, no accessory muscle use Cardiovascular/Chest: normal peripheral pulses, normal rate Abdomen: normal bowel sounds, non tender, soft, no organomegaly, no mass Extremities: normal range of motion Skin Exam: normal pigmentation Neurologic: alert, oriented x 3 Last 24 Hour Vital Signs Date Time Temp Pulse Resp B/P (MAP) Pulse Ox O2 Delivery O2 Flow Rate FiO2 05/02/18 08:00 98.4 88 19 171/108 97 Room Air 98.4 05/02/18 00:00 97.2 108 20 185/110 98 Room Air 97.2 05/01/18 20:00 97.7 89 18 160/109 97 Room Air 97.7 05/01/18 16:00 98.0 99 18 159/84 98 Room Air 98.0 05/01/18 13:39 98.3 86 15 158/68 97 Room Air 98.3 05/01/18 12:35 98.3 69 21 130/58 97 Room Air 98.3 Intake and Output 05/01/18 05/02/18 19:00 07:00 Intake Total 1500 ml 1160 ml Balance 1500 ml 1160 ml Intake Oral 0 ml 160 ml IV Total 1500 ml 1000 ml # Voids 1 2 Laboratory Tests Test 05/02/18 04:20 05/02/18 09:50 05/02/18 10:56 White Blood Count 15.2 K/UL (4.8-10.8) #H 13.8 K/UL (4.8-10.8) H Red Blood Count 4.22 M/UL (4.20-5.40) 4.41 M/UL (4.20-5.40) Hemoglobin 13.3 G/DL (12.0-16.0) 13.4 G/DL (12.0-16.0) Hematocrit 36.6 % (37.0-47.0) L 38.4 % (37.0-47.0) Mean Corpuscular Volume 87 FL (80-99) 87 FL (80-99) Mean Corpuscular Hemoglobin 31.6 PG (27.0-31.0) H 30.3 PG (27.0-31.0) Mean Corpuscular Hemoglobin Concent 36.4 G/DL (32.0-36.0) H 34.8 G/DL (32.0-36.0) Red Cell Distribution Width 10.9 % (11.6-14.8) L 10.9 % (11.6-14.8) L Platelet Count 239 K/UL (150-450) 236 K/UL (150-450) Mean Platelet Volume 6.3 FL (6.5-10.1) L 6.3 FL (6.5-10.1) L Neutrophils (%) (Auto) 74.1 % (45.0-75.0) 80.7 % (45.0-75.0) H Lymphocytes (%) (Auto) 18.8 % (20.0-45.0) L 13.8 % (20.0-45.0) L Monocytes (%) (Auto) 6.6 % (1.0-10.0) 5.0 % (1.0-10.0) Eosinophils (%) (Auto) 0.1 % (0.0-3.0) 0.0 % (0.0-3.0) Basophils (%) (Auto) 0.4 % (0.0-2.0) 0.5 % (0.0-2.0) Sodium Level 141 MMOL/L (136-145) Potassium Level 2.8 MMOL/L (3.5-5.1) L Chloride Level 105 MMOL/L (98-107) Carbon Dioxide Level 22 MMOL/L (21-32) Anion Gap 15 mmol/L (5-15) Blood Urea Nitrogen 7 mg/dL (7-18) Creatinine 0.8 MG/DL (0.55-1.30) Estimat Glomerular Filtration Rate > 60 mL/min (>60) Glucose Level 125 MG/DL (74-106) H Calcium Level 8.8 MG/DL (8.5-10.1) Phosphorus Level 2.6 MG/DL (2.5-4.9) Magnesium Level 2.0 MG/DL (1.8-2.4) Lipase 273 U/L (73-393) Urine HCG, Qualitative Negative (NEGATIVE) Height (Feet): 5 Height (Inches): 8.00 Weight (Pounds): 129 Medications Current Medications Medications (Trade) Dose Ordered Sig/Shanta Route PRN Reason Start Time Stop Time Status Last Admin Dose Admin Acetaminophen (Tylenol) 650 mg Q4H PRN ORAL Mild Pain (Pain Scale 1-3) 05/01/18 12:45 05/31/18 12:44 Dextrose (Dextrose 50%) 25 ml STAT PRN IV Hypoglycemia 05/01/18 12:45 05/31/18 12:44 Dextrose (Dextrose 50%) 50 ml STAT PRN IV Hypoglycemia 05/01/18 12:45 05/31/18 12:44 Dextrose/Sodium Chloride 1,000 ml @ 100 mls/hr Q10H IV 05/01/18 13:30 05/31/18 13:29 05/02/18 08:07 Diphenhydramine HCl (Benadryl) 25 mg Q6H PRN ORAL Itching/Pruritis 05/01/18 12:45 05/31/18 12:44 Docusate Sodium (Colace) 100 mg EVERY 12 HOURS ORAL 05/01/18 21:00 05/31/18 20:59 05/01/18 20:21 Enoxaparin Sodium (Lovenox) 40 mg Q24H SUBQ 05/01/18 13:45 05/31/18 13:44 05/01/18 13:57 Lorazepam (Ativan 2mg/ml 1ml) 1 mg Q4H PRN IV For Anxiety 05/01/18 15:30 05/08/18 15:29 05/02/18 04:50 Metoclopramide HCl (Reglan) 5 mg Q8H PRN IVP Persistent vomiting 05/01/18 13:00 05/31/18 12:59 05/02/18 08:07 Ondansetron HCl (Zofran) 8 mg Q6H PRN IVP Nausea & Vomiting 05/01/18 12:45 05/31/18 12:44 05/02/18 04:50 Zolpidem Tartrate (Ambien) 5 mg HSPRN PRN ORAL Insomnia 05/01/18 12:45 05/08/18 12:44 05/01/18 20:21 Assessment/Plan Problem List: (1) Intractable cyclical vomiting Assessment & Plan: has had for some time now. etiology unknown as of yet. prior CT reviewed. exam benign without abdominal pain, distention, or symptoms. small umbilical hernia but incidental. onset of symptoms without any clinical history. some concerns for psych issues given no organic etiology. maybe med seeking? -no acute surgical intervention necessary -diet as tolerated -will follow with recs. thank you ICD Codes: G43.A1 - Intractable cyclical vomiting SNOMED: 77594466 Status: stable Carl Colon May 02, 2018 12:39
[2018-05-02] MEDS: Enoxaparin 40mg Inj SUBQ SCH (13:57)
[2018-05-02 16:00] VITALS: BP 158/93
[2018-05-02 20:00] VITALS: BP 130/96
[2018-05-02] MEDS: Zolpidem 5mg tab ORAL PRN (22:26)
[2018-05-03] MEDS: LORazepam Inj 2mg/ml 1ml IV PRN ×3 (02:41→13:57)
[2018-05-03 04:00] VITALS: BP 150/101
[2018-05-03] MEDS: Metoclopramide 10mg/2ml Inj IVP PRN (04:18)
[2018-05-03 04:29] LABS: APPEARANCE,URINE CLEAR; BILIRUBIN, URINE NEGATIVE (NEGATIVE); GLUCOSE, URINE (UA) NEGATIVE (NEGATIVE); KETONES,URINE 3+ (NEGATIVE); LEUKOCYTE ESTERASE ,URINE NEGATIVE (NEGATIVE); NITRITE,URINE NEGATIVE (NEGATIVE); PH,URINE 7 (4.5-8.0); PROTEIN,URINE NEGATIVE (NEGATIVE); UROBILINOGEN,URINE NORMAL MG/DL (0.0-1.0)
[2018-05-03 04:30] LABS: COLOR,URINE YELLOW
--- NOTE | 2018-05-03 07:43 | Nephrology Progress Note ---
Assessment/Plan Assessment/Plan 1. Cyclic N/V- mgmt per GI - agree with their assestment to avoid narcotics - DC today if electrolytes stable 2. Abd Pain- patient requestuing narcotics. No clear etiology for pain and in no overt apparent distress - Abd pain resolved. Cleared by Surg and GI. DC today if electrolytes stable 3. Leukocytosis- WBC 9--->15?. When repeated has returned towards normal. UA collection contaminted. Patient not febrile. AM labs pending 4. DVT prophylaxis with heparin sub q Subjective Date patient seen: May 03, 2018 Time patient seen: 07:41 ROS Limited/Unobtainable: No Gastrointestinal/Abdominal: Reports: nausea Allergies: Coded Allergies: PROCHLORPERAZINE (Verified Allergy, Intermediate, hives on left forearm, ) allergic reaction from pt was admitted to ED on 01/05/17 SULFA (SULFONAMIDE ANTIBIOTICS) (Verified Allergy, Unknown, 02/23/11) Uncoded Allergies: SULFA (Allergy, Unknown, 11/18/17) All Systems: reviewed and negative except above Subjective Patient in no distress. Has tolerated food. Feeling nauseated at baseline Objective Last 24 Hour Vital Signs Date Time Temp Pulse Resp B/P (MAP) Pulse Ox O2 Delivery O2 Flow Rate FiO2 05/03/18 04:00 98.9 100 20 150/101 95 Room Air 98.9 05/02/18 20:00 99.4 116 18 130/96 96 Room Air 99.4 05/02/18 16:00 98.2 97 17 158/93 100 Room Air 98.2 05/02/18 12:00 98.0 79 18 149/97 100 Room Air 98.0 05/02/18 08:00 98.4 88 19 171/108 97 Room Air 98.4 Intake and Output 05/02/18 05/03/18 19:00 07:00 Intake Total 1250 ml 450 ml Balance 1250 ml 450 ml Intake Oral 250 ml IV Total 800 ml 200 ml Other 450 ml # Voids 2 2 Laboratory Tests 05/02/18 09:50: Urine HCG, Qualitative Negative 05/02/18 10:56: White Blood Count 13.8H, Red Blood Count 4.41, Hemoglobin 13.4, Hematocrit 38.4 , Mean Corpuscular Volume 87, Mean Corpuscular Hemoglobin 30.3, Mean Corpuscular Hemoglobin Concent 34.8, Red Cell Distribution Width 10.9L, Platelet Count 236, Mean Platelet Volume 6.3L, Neutrophils (%) (Auto) 80.7H, Lymphocytes (%) (Auto) 13.8L, Monocytes (%) (Auto) 5.0, Eosinophils (%) (Auto) 0.0, Basophils (%) (Auto) 0.5 05/02/18 20:10: Potassium Level 2.8L 05/03/18 03:55: Urine Color Yellow, Urine Appearance Clear, Urine pH 7, Urine Specific [place] 1.010, Urine Protein Negative, Urine Glucose (UA) Negative, Urine Ketones 3+H, Urine Occult Blood 2+H, Urine Nitrite Negative, Urine Bilirubin Negative, Urine Urobilinogen Normal, Urine Leukocyte Esterase Negative, Urine RBC 5-10H, Urine WBC 0-2, Urine Squamous Epithelial Cells Occasional, Urine Bacteria Few, Urine Mucus FewH Height (Feet): 5 Height (Inches): 8.00 Weight (Pounds): 129 General Appearance: no apparent distress, alert EENT: normal ENT inspection, TMs normal Neck: normal alignment, supple Cardiovascular: normal rate, regular rhythm Respiratory/Chest: lungs clear, normal breath sounds Abdomen: non tender, soft Edema: no edema noted Arm (L), no edema noted Arm (R), no edema noted Leg (L), no edema noted Leg (R), no edema noted Pedal (L), no edema noted Pedal (R), no edema noted Generalized Joni Montes M.D. May 03, 2018 07:43
[2018-05-03 08:00] VITALS: BP 150/100
[2018-05-03 08:49] LABS: BASOPHILS % (AUTO) 0.3 % (0.0-2.0); HEMATOCRIT 36.6 % (37.0-47.0); HEMOGLOBIN 12.9 G/DL (12.0-16.0); LYMPHOCYTES % (AUTO) 18.1 % (20.0-45.0); MEAN CORPUSCULAR VOLUME 87 FL (80-99); MONOCYTES % (AUTO) 5.9 % (1.0-10.0); NEUTROPHILS % (AUTO) 75.7 % (45.0-75.0); PLATELET COUNT 236 K/UL (150-450); RED BLOOD COUNT 4.21 M/UL (4.20-5.40); RED CELL DISTRIBUTION WIDTH 10.7 % (11.6-14.8); WHITE BLOOD COUNT 12.5 K/UL (4.8-10.8)
[2018-05-03 08:51] VITALS: BP 152/103
[2018-05-03 09:09] LABS: ANION GAP 12 mmol/L (5-15); BLOOD UREA NITROGEN 5 mg/dL (7-18); CARBON DIOXIDE 23 MMOL/L (21-32); CHLORIDE 103 MMOL/L (98-107); CREATININE 0.7 MG/DL (0.55-1.30); POTASSIUM 2.9 MMOL/L (3.5-5.1); SODIUM 138 MMOL/L (136-145)
[2018-05-03] MEDS: Docusate 100mg cap ORAL SCH (09:10)
[2018-05-03] MEDS ORDERED: Potassium Chloride 40 MEQ in 1/2 NS 1000ml 1,000 ML IV ONE (10:00)
[2018-05-03 10:27] LABS: PHOSPHORUS 2.4 MG/DL (2.5-4.9)
--- NOTE | 2018-05-03 10:28 | General Progress Note ---
Assessment/Plan Problem List: (1) Cannabis abuse ICD Codes: F12.10 - Cannabis abuse, uncomplicated SNOMED: 63168351 (2) Cyclic vomiting syndrome ICD Codes: G43.A0 - Cyclical vomiting, not intractable SNOMED: 08243943 (3) Nausea and vomiting in adult patient ICD Codes: R11.2 - Nausea with vomiting, unspecified SNOMED: 76276157 Assessment/Plan add reglan add protonix avoid canabinoids ok to dc GI stand point Subjective ROS Limited/Unobtainable: Yes Allergies: Coded Allergies: PROCHLORPERAZINE (Verified Allergy, Intermediate, hives on left forearm, ) allergic reaction from pt was admitted to ED on 01/05/17 SULFA (SULFONAMIDE ANTIBIOTICS) (Verified Allergy, Unknown, 02/23/11) Uncoded Allergies: SULFA (Allergy, Unknown, 11/18/17) Subjective c/o abd pain c/o GERD c/o nausea Objective Last 24 Hour Vital Signs Date Time Temp Pulse Resp B/P (MAP) Pulse Ox O2 Delivery O2 Flow Rate FiO2 05/03/18 10:08 134 152/103 05/03/18 08:51 98.5 134 20 152/103 95 Room Air 98.5 05/03/18 08:00 98.5 88 20 150/100 95 Room Air 98.5 05/03/18 04:00 98.9 100 20 150/101 95 Room Air 98.9 05/02/18 20:00 99.4 116 18 130/96 96 Room Air 99.4 05/02/18 16:00 98.2 97 17 158/93 100 Room Air 98.2 05/02/18 12:00 98.0 79 18 149/97 100 Room Air 98.0 Intake and Output 05/02/18 05/03/18 19:00 07:00 Intake Total 1250 ml 450 ml Balance 1250 ml 450 ml Intake Oral 250 ml IV Total 800 ml 200 ml Other 450 ml # Voids 2 2 Laboratory Tests 05/02/18 10:56: White Blood Count 13.8H, Red Blood Count 4.41, Hemoglobin 13.4, Hematocrit 38.4 , Mean Corpuscular Volume 87, Mean Corpuscular Hemoglobin 30.3, Mean Corpuscular Hemoglobin Concent 34.8, Red Cell Distribution Width 10.9L, Platelet Count 236, Mean Platelet Volume 6.3L, Neutrophils (%) (Auto) 80.7H, Lymphocytes (%) (Auto) 13.8L, Monocytes (%) (Auto) 5.0, Eosinophils (%) (Auto) 0.0, Basophils (%) (Auto) 0.5 05/02/18 20:10: Potassium Level 2.8L 05/03/18 03:55: Urine Color Yellow, Urine Appearance Clear, Urine pH 7, Urine Specific [place] 1.010, Urine Protein Negative, Urine Glucose (UA) Negative, Urine Ketones 3+H, Urine Occult Blood 2+H, Urine Nitrite Negative, Urine Bilirubin Negative, Urine Urobilinogen Normal, Urine Leukocyte Esterase Negative, Urine RBC 5-10H, Urine WBC 0-2, Urine Squamous Epithelial Cells Occasional, Urine Bacteria Few, Urine Mucus FewH 05/03/18 06:35: White Blood Count 12.5H, Red Blood Count 4.21, Hemoglobin 12.9, Hematocrit 36.6L , Mean Corpuscular Volume 87, Mean Corpuscular Hemoglobin 30.5, Mean Corpuscular Hemoglobin Concent 35.1, Red Cell Distribution Width 10.7L, Platelet Count 236, Mean Platelet Volume 6.6, Neutrophils (%) (Auto) 75.7H, Lymphocytes (%) (Auto) 18.1L, Monocytes (%) (Auto) 5.9, Eosinophils (%) (Auto) 0.0, Basophils (%) (Auto) 0.3, Potassium Level 2.9L, Sodium Level 138, Chloride Level 103, Carbon Dioxide Level 23, Anion Gap 12, Blood Urea Nitrogen 5L, Creatinine 0.7, Estimat Glomerular Filtration Rate > 60, Glucose Level 123H, Calcium Level 9.0, Phosphorus Level [Pending], Magnesium Level [Pending] Height (Feet): 5 Height (Inches): 8.00 Weight (Pounds): 129 General Appearance: no apparent distress EENT: normal ENT inspection Neck: supple Cardiovascular: normal rate Respiratory/Chest: decreased breath sounds Abdomen: normal bowel sounds, non tender, soft Extremities: non-tender Ferny Wood MD May 03, 2018 10:28
[2018-05-03] MEDS ORDERED: Metoclopramide 10mg/2ml Inj IVP PRN (10:30)
--- NOTE | 2018-05-03 11:07 | General Surgery Progress Note ---
General Surgery-Progress Note Subjective Symptoms: improved, tolerating diet, passing flatus, BM Additional Comments mild epigastric pain radiating to left subcostal space. costochondritis from clinical history Objective Last 24 Hour Vital Signs Date Time Temp Pulse Resp B/P (MAP) Pulse Ox O2 Delivery O2 Flow Rate FiO2 05/03/18 10:08 134 152/103 05/03/18 08:51 98.5 134 20 152/103 95 Room Air 98.5 05/03/18 08:00 98.5 88 20 150/100 95 Room Air 98.5 05/03/18 04:00 98.9 100 20 150/101 95 Room Air 98.9 05/02/18 20:00 99.4 116 18 130/96 96 Room Air 99.4 05/02/18 16:00 98.2 97 17 158/93 100 Room Air 98.2 05/02/18 12:00 98.0 79 18 149/97 100 Room Air 98.0 I&O Intake and Output 05/02/18 05/03/18 19:00 07:00 Intake Total 1250 ml 450 ml Balance 1250 ml 450 ml Intake Oral 250 ml IV Total 800 ml 200 ml Other 450 ml # Voids 2 2 Drains: none Cardiovascular: RSR Respiratory: clear Abdomen: soft, flat, non-tender, present bowel sounds Extremities: no edema, no tenderness, no cyanosis Laboratory Tests Test 05/02/18 20:10 05/03/18 03:55 05/03/18 06:35 Potassium Level 2.8 MMOL/L (3.5-5.1) L 2.9 MMOL/L (3.5-5.1) L Urine Color Yellow Urine Appearance Clear Urine pH 7 (4.5-8.0) Urine Specific [place] 1.010 (1.005-1.035) Urine Protein Negative (NEGATIVE) Urine Glucose (UA) Negative (NEGATIVE) Urine Ketones 3+ (NEGATIVE) H Urine Occult Blood 2+ (NEGATIVE) H Urine Nitrite Negative (NEGATIVE) Urine Bilirubin Negative (NEGATIVE) Urine Urobilinogen Normal MG/DL (0.0-1.0) Urine Leukocyte Esterase Negative (NEGATIVE) Urine RBC 5-10 /HPF (0 - 2) H Urine WBC 0-2 /HPF (0 - 2) Urine Squamous Epithelial Cells Occasional /LPF Urine Bacteria Few /HPF (NONE) Urine Mucus Few /LPF (NONE/OCC) H White Blood Count 12.5 K/UL (4.8-10.8) H Red Blood Count 4.21 M/UL (4.20-5.40) Hemoglobin 12.9 G/DL (12.0-16.0) Hematocrit 36.6 % (37.0-47.0) L Mean Corpuscular Volume 87 FL (80-99) Mean Corpuscular Hemoglobin 30.5 PG (27.0-31.0) Mean Corpuscular Hemoglobin Concent 35.1 G/DL (32.0-36.0) Red Cell Distribution Width 10.7 % (11.6-14.8) L Platelet Count 236 K/UL (150-450) Mean Platelet Volume 6.6 FL (6.5-10.1) Neutrophils (%) (Auto) 75.7 % (45.0-75.0) H Lymphocytes (%) (Auto) 18.1 % (20.0-45.0) L Monocytes (%) (Auto) 5.9 % (1.0-10.0) Eosinophils (%) (Auto) 0.0 % (0.0-3.0) Basophils (%) (Auto) 0.3 % (0.0-2.0) Sodium Level 138 MMOL/L (136-145) Chloride Level 103 MMOL/L (98-107) Carbon Dioxide Level 23 MMOL/L (21-32) Anion Gap 12 mmol/L (5-15) Blood Urea Nitrogen 5 mg/dL (7-18) L Creatinine 0.7 MG/DL (0.55-1.30) Estimat Glomerular Filtration Rate > 60 mL/min (>60) Glucose Level 123 MG/DL (74-106) H Calcium Level 9.0 MG/DL (8.5-10.1) Phosphorus Level 2.4 MG/DL (2.5-4.9) L Magnesium Level 2.0 MG/DL (1.8-2.4) Plan Problems: (1) Intractable cyclical vomiting Assessment & Plan: has had for some time now. etiology unknown as of yet. prior CT reviewed. exam benign without abdominal pain, distention, or symptoms. small umbilical hernia but incidental. onset of symptoms without any clinical history. some concerns for psych issues given no organic etiology. maybe med seeking? asks for pain meds during entire interview -no acute surgical intervention necessary -diet as tolerated -will follow with recs. -okay to d/c from surgical standpoint thank you Carl Colon May 03, 2018 11:07
[2018-05-03 12:00] VITALS: BP 153/102
[2018-05-03] MEDS: Enoxaparin 40mg Inj SUBQ SCH (13:59)
[2018-05-03 16:00] VITALS: BP 159/67
[2018-05-03] MEDS ORDERED: LORazepam Inj 2mg/ml 1ml IV PRN (16:00)
--- NOTE | 2018-05-03 16:53 | Consultation ---
History of Present Illness General Date patient seen: May 03, 2018 Time patient seen: 17:01 Chief Complaint: Vomiting Referring physician: GRIFFIN SMITH Reason for Consultation: CYCLC VOMITING,TACHYCARDIA Present Illness HPI Patient with retractible cyclic vomiting. Cardiology consulted for tachycardia heart rates 130s in setting of hypokalemia and dehydration. NO fevers or WBC Allergies: Coded Allergies: PROCHLORPERAZINE (Verified Allergy, Intermediate, hives on left forearm, ) allergic reaction from pt was admitted to ED on 01/05/17 SULFA (SULFONAMIDE ANTIBIOTICS) (Verified Allergy, Unknown, 02/23/11) Uncoded Allergies: SULFA (Allergy, Unknown, 11/18/17) Medication History Scheduled Albuterol Sulfate* (Proair Hfa*), 1 PUFF INH Q6H, (Reported) Amitriptyline HCl (Elavil*), 25 MG ORAL BEDTIME Lorazepam* (Ativan*), 1 MG ORAL THREE TIMES A DAY Omeprazole Magnesium (Prilosec Otc), 20 MG ORAL DAILY Promethazine Hcl (Promethazine Hcl), 25 MG RC Q6HR Scheduled PRN Lorazepam* (Ativan*), 1 MG ORAL Q4HR PRN for Nausea & Vomiting, (Reported) Metoclopramide Hcl* (Reglan*), 10 MG ORAL THREE TIMES A DAY PRN Ondansetron (Zofran), 4 MG ORAL Q6H PRN for Nausea & Vomiting Ondansetron Hcl* (Zofran*), 8 MG ORAL Q4HR PRN for Nausea & Vomiting, (Reported) Ondansetron Odt* (Zofran Odt*), 4 MG ORAL Q6H PRN for Nausea & Vomiting Ondansetron Odt* (Zofran Odt*), 4 MG ORAL Q6H PRN for Nausea & Vomiting Ondansetron Odt* (Zofran Odt*), 4 MG ORAL Q6H PRN for Nausea & Vomiting Ondansetron Odt* (Zofran Odt*), 4 MG ORAL Q6H PRN for Nausea & Vomiting Ondansetron Odt* (Zofran Odt*), 4 MG ORAL Q8H PRN for Nausea & Vomiting Ondansetron Odt* (Zofran Odt*), 4 MG ORAL Q6H PRN for Nausea & Vomiting Patient History Healthcare decision maker Resuscitation status Advanced Directive on File Review of Systems Constitutional: Reports: no symptoms Eye: Reports: no symptoms ENT: Reports: no symptoms Respiratory: Reports: no symptoms Gastrointestinal: Reports: abdominal pain, nausea, vomiting Genitourinary: Reports: no symptoms Musculoskeletal: Reports: no symptoms Skin: Reports: no symptoms Psychiatric: Reports: anxiety, depressed feelings, emotional problems Neurological: Reports: no symptoms Endocrine: Reports: no symptoms Physical Exam General Appearance: no apparent distress Lines, tubes and drains: peripheral HEENT: normocephalic Neck: non-tender Respiratory/Chest: chest wall non-tender Cardiovascular/Chest: normal peripheral pulses, normal rate, regular rhythm Abdomen: normal bowel sounds, non tender Extremities: normal range of motion 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 normal Last 24 Hour Vital Signs Date Time Temp Pulse Resp B/P (MAP) Pulse Ox O2 Delivery O2 Flow Rate FiO2 05/03/18 16:00 97.6 61 20 159/67 95 Room Air 97.6 05/03/18 12:00 97.8 68 20 153/102 95 Room Air 97.8 05/03/18 10:08 134 152/103 05/03/18 08:51 98.5 134 20 152/103 95 Room Air 98.5 05/03/18 08:00 98.5 88 20 150/100 95 Room Air 98.5 05/03/18 04:00 98.9 100 20 150/101 95 Room Air 98.9 05/02/18 20:00 99.4 116 18 130/96 96 Room Air 99.4 Intake and Output 05/02/18 05/03/18 19:00 07:00 Intake Total 1250 ml 450 ml Balance 1250 ml 450 ml Intake Oral 250 ml IV Total 800 ml 200 ml Other 450 ml # Voids 2 2 Laboratory Tests Test 05/02/18 20:10 05/03/18 03:55 05/03/18 06:35 05/03/18 14:20 Potassium Level 2.8 MMOL/L (3.5-5.1) L 2.9 MMOL/L (3.5-5.1) L 3.5 MMOL/L (3.5-5.1) Urine Color Yellow Urine Appearance Clear Urine pH 7 (4.5-8.0) Urine Specific [place] 1.010 (1.005-1.035) Urine Protein Negative (NEGATIVE) Urine Glucose (UA) Negative (NEGATIVE) Urine Ketones 3+ (NEGATIVE) H Urine Occult Blood 2+ (NEGATIVE) H Urine Nitrite Negative (NEGATIVE) Urine Bilirubin Negative (NEGATIVE) Urine Urobilinogen Normal MG/DL (0.0-1.0) Urine Leukocyte Esterase Negative (NEGATIVE) Urine RBC 5-10 /HPF (0 - 2) H Urine WBC 0-2 /HPF (0 - 2) Urine Squamous Epithelial Cells Occasional /LPF Urine Bacteria Few /HPF (NONE) Urine Mucus Few /LPF (NONE/OCC) H White Blood Count 12.5 K/UL (4.8-10.8) H Red Blood Count 4.21 M/UL (4.20-5.40) Hemoglobin 12.9 G/DL (12.0-16.0) Hematocrit 36.6 % (37.0-47.0) L Mean Corpuscular Volume 87 FL (80-99) Mean Corpuscular Hemoglobin 30.5 PG (27.0-31.0) Mean Corpuscular Hemoglobin Concent 35.1 G/DL (32.0-36.0) Red Cell Distribution Width 10.7 % (11.6-14.8) L Platelet Count 236 K/UL (150-450) Mean Platelet Volume 6.6 FL (6.5-10.1) Neutrophils (%) (Auto) 75.7 % (45.0-75.0) H Lymphocytes (%) (Auto) 18.1 % (20.0-45.0) L Monocytes (%) (Auto) 5.9 % (1.0-10.0) Eosinophils (%) (Auto) 0.0 % (0.0-3.0) Basophils (%) (Auto) 0.3 % (0.0-2.0) Sodium Level 138 MMOL/L (136-145) Chloride Level 103 MMOL/L (98-107) Carbon Dioxide Level 23 MMOL/L (21-32) Anion Gap 12 mmol/L (5-15) Blood Urea Nitrogen 5 mg/dL (7-18) L Creatinine 0.7 MG/DL (0.55-1.30) Estimat Glomerular Filtration Rate > 60 mL/min (>60) Glucose Level 123 MG/DL (74-106) H Calcium Level 9.0 MG/DL (8.5-10.1) Phosphorus Level 2.4 MG/DL (2.5-4.9) L Magnesium Level 2.0 MG/DL (1.8-2.4) Height (Feet): 5 Height (Inches): 8.00 Weight (Pounds): 129 Medications Current Medications Medications (Trade) Dose Ordered Sig/[place] Route PRN Reason Start Time Stop Time Status Last Admin Dose Admin Acetaminophen (Tylenol) 650 mg Q4H PRN ORAL Mild Pain (Pain Scale 1-3) 05/01/18 12:45 05/31/18 12:44 Amlodipine Besylate (Norvasc) 10 mg DAILY ORAL 05/03/18 10:00 06/02/18 09:59 05/03/18 10:08 Clonidine HCl (Catapres Tab) 0.1 mg EVERY 6 HOURS PRN ORAL SBP > 155 05/02/18 20:30 06/01/18 20:29 Dextrose (Dextrose 50%) 25 ml STAT PRN IV Hypoglycemia 05/01/18 12:45 05/31/18 12:44 Dextrose (Dextrose 50%) 50 ml STAT PRN IV Hypoglycemia 05/01/18 12:45 05/31/18 12:44 Diphenhydramine HCl (Benadryl) 25 mg Q6H PRN ORAL Itching/Pruritis 05/01/18 12:45 05/31/18 12:44 Docusate Sodium (Colace) 100 mg EVERY 12 HOURS ORAL 05/01/18 21:00 05/31/18 20:59 05/03/18 09:10 Enoxaparin Sodium (Lovenox) 40 mg Q24H SUBQ 05/01/18 13:45 05/31/18 13:44 05/03/18 13:59 Famotidine (Pepcid) 20 mg DAILY ORAL 05/03/18 09:00 06/02/18 08:59 05/03/18 09:10 Lorazepam (Ativan 2mg/ml 1ml) 1 mg Q4H PRN IV For Anxiety 05/03/18 16:00 05/08/18 15:29 Metoclopramide HCl (Reglan) 10 mg Q6H PRN IVP Nausea & Vomiting 05/03/18 10:30 06/02/18 10:29 05/03/18 13:59 Ondansetron HCl (Zofran) 8 mg Q6H PRN IVP Nausea & Vomiting 05/01/18 12:45 05/31/18 12:44 05/03/18 09:12 Pantoprazole (Protonix) 40 mg EVERY 12 HOURS IVP 05/03/18 21:00 06/02/18 20:59 Potassium Chloride 40 meq/ Sodium Chloride 1,020 ml @ 125 mls/hr Q8H10M ONCE IV 05/03/18 10:00 05/03/18 18:09 05/03/18 10:07 Zolpidem Tartrate (Ambien) 5 mg HSPRN PRN ORAL Insomnia 05/01/18 12:45 05/08/18 12:44 05/02/18 22:26 Assessment/Plan Status: stable Assessment/Plan No previous CV history Tachycardia resolved - setting of Hyperkalemia, dehydration, ketosis, multiple medications No work up needed in house - recommend electrolyte replacement, control of vomiting EKG Ok to discharge from cardiology standpoint with follow up Dr. Norwood for further evaluation Maxi Nascimento M.D. May 03, 2018 16:53
[2018-05-03] MEDS ORDERED: ZOFRAN4 M3 ORAL ×2 (18:38→18:44)
[2018-05-03] MEDS ORDERED: PEPCID40 MG/5 ML PO ×2 (18:44→18:47)
[2018-05-03] MEDS ORDERED: PEPCID AC20 M2 PO (18:48)
[2018-05-03] MEDS ORDERED: Tubing IV Secondary IV ONE (19:10)
[2018-05-03] MEDS ORDERED: D5NS 1000ml IV ONE (19:10)
[2018-05-03] MEDS ORDERED: Pantoprazole Inj IVP SCH (21:00)
[2018-05-04] MEDS ORDERED: PROMETHAZINE HC25 MG RC (01:43)
== END 2018-05-03 19:11 | disposition home or self-care (01) | DRG 422 ==
LOC: EMR 08:44 → 4E 10:42 → EDBEDREQ 13:11
DX: E86.0 Dehydration (principal); E87.5 Hyperkalemia; F12.10 Cannabis abuse, uncomplicated; K31.89 Other diseases of stomach and duodenum; R11.2 Nausea with vomiting, unspecified; R00.0 Tachycardia, unspecified; D72.829 Elevated white blood cell count, unspecified
CPT/HCPCS: 36415; 80048; 81003; 81025; 83690; 83735; 84100; 84132; 85025; 99285; J2405; J2765; J8499

== ENCOUNTER 2018-05-03 23:38 | Emergency (ER) | payer MEDICAID ==
[~2018-05-03] VITALS: Ht 172.7 cm; Wt 59.0 kg
[~2018-05-03 23:38] MED LIST changes: +PEPCID AC20 M2 PO; +PEPCID40 MG/5 ML PO; +ZOFRAN4 M3 ORAL
[2018-05-04] MEDS ORDERED: Haloperidol Lactate 5 MG in D5W 55 ML IVPB ONE ×2
[2018-05-04 00:28] LABS: HEMATOCRIT 41.3 % (37.0-47.0); LYMPHOCYTES % (AUTO) 21.5 % (20.0-45.0); MEAN CORPUSCULAR VOLUME 85 FL (80-99); MONOCYTES % (AUTO) 5.3 % (1.0-10.0); NEUTROPHILS % (AUTO) 72.2 % (45.0-75.0); PLATELET COUNT 263 K/UL (150-450); RED BLOOD COUNT 4.84 M/UL (4.20-5.40); RED CELL DISTRIBUTION WIDTH 10.8 % (11.6-14.8); WHITE BLOOD COUNT 11.2 K/UL (4.8-10.8)
--- NOTE | 2018-05-04 00:29 | Emergency Room Report ---
History of Present Illness General Chief Complaint: Vomiting Source: Patient Present Illness HPI Is a 33-year-old female with a history of cyclic vomiting syndrome. This is a chronic issue for her. She's been here numerous times already. She was here 3 times in the last few days and was admitted to the hospital and was just discharged 6 PM last night. She remained with chief complaint of nominal pain with nausea vomiting. Pain is 8 out of 10. Sharp and crampy in nature. Similar symptom previous episode. [place] lightheaded and anxious. Asking for Ativan. Allergies: Coded Allergies: PROCHLORPERAZINE (Verified Allergy, Intermediate, hives on left forearm, ) allergic reaction from pt was admitted to ED on 01/05/17 SULFA (SULFONAMIDE ANTIBIOTICS) (Verified Allergy, Unknown, 02/23/11) Patient History Past Medical History: see triage record, old chart reviewed Past Surgical History: other Pertinent Family History: none Social History: Denies: smoking, alcohol use Last Menstrual Period: 3 weeks ago Now: No Immunizations: other Reviewed Nursing Documentation: PMH: Agreed; PSxH: Agreed Nursing Documentation-PMH Past Medical History: No History, Except For Hx Cardiac Problems: No Hx Hypertension: No Hx Pacemaker: No Hx Asthma: Yes Hx COPD: No Hx Diabetes: No Hx Cancer: No Hx Dialysis: No Hx Neurological Problems: No Hx Cerebrovascular Accident: No Hx Transient Ischemic Attacks: No Hx Dementia: No Hx Alzheimer's Disease: No Hx Parkinson's Disease: No Hx Meningitis: No Hx Encephalitis: No Hx Seizures: No Hx Epilepsy: No Hx Multiple Sclerosis: No Hx Cerebral Palsy: No Hx Amyotrophic Lat Sclerosis: No Hx Guillian-[place] Syndrome: No Hx Paralysis: No Hx Peripheral Neuropathy: No Hx Spinal Cord Injury: No Hx Head Trauma: No Hx Traumatic Brain Injury: No Hx Memory Loss: No Hx Concentration Difficulty: No Hx Speech Problem: No Hx Tremors: No Hx Vertigo: No Hx Dizziness: No Hx Syncope: No Hx Headaches: No Hx Aphasia: No Hx Dysphasia: No Hx Numbness: No Hx Weakness: No Hx Fatigue: No Hx Neurologic Surgery: No Hx Brain Shunt: No Review of Systems Constitutional: Reports: weakness Eye: Denies: eye pain, blurred vision ENT: Denies: ear pain, nose congestion, throat swelling Respiratory: Denies: cough, shortness of breath Cardiovascular: Denies: chest pain, palpitations Gastrointestinal: Reports: abdominal pain, nausea, vomiting; Denies: diarrhea Musculoskeletal: Denies: back pain, joint pain Skin: Denies: rash Neurological: Denies: headache, numbness Endocrine: Denies: increased thirst, increased urine Hematologic/Lymphatic: Denies: easy bruising All Other Systems: negative except mentioned in HPI Physical Exam Vital Signs Date Time Temp Pulse Resp B/P (MAP) Pulse Ox O2 Delivery O2 Flow Rate FiO2 05/03/18 23:44 98.4 116 17 152/103 97 Room Air 98.4 vitals normal except for high blood pressure Sp02 EP Interpretation: reviewed, normal General Appearance: well appearing, no apparent distress, alert Head: normocephalic, atraumatic Eyes: bilateral eye PERRL, bilateral eye EOMI ENT: hearing grossly normal, normal pharynx Neck: full range of motion, supple, no meningismus Respiratory: chest non-tender, lungs clear, normal breath sounds Cardiovascular #1: regular rate, rhythm, no murmur Gastrointestinal: no mass, no organomegaly, no bruit, non-distended, tenderness - mild, diffuse, decreased bowel sounds Musculoskeletal: back normal, gait/station normal, normal range of motion Neurologic: alert, oriented x3 Psychiatric: mood/affect normal Skin: warm/dry Medical Decision Making Diagnostic Impression: Primary Impression: Cyclic vomiting syndrome Qualified Codes: G43.A0 - Cyclical vomiting, not intractable Additional Impression: Abdominal pain Qualified Codes: R10.84 - Generalized abdominal pain ER Course Patient with abdominal pain and nausea vomiting. This is a system problem for her. She was diagnosed with cyclic vomiting syndrome. Abdominal exam is benign. Labs unremarkable. Potassium normal. No give her dehydration. She got 2 L of fluid here. She slept comfortably. No longer vomiting. She responded well to Haldol and Phenergan via IV piggy bag. On the monitor there is no evidence of any prolonged QT interval. Lab Results Impression labs unremarkable Last Vital Signs Date Time Temp Pulse Resp B/P (MAP) Pulse Ox O2 Delivery O2 Flow Rate FiO2 05/03/18 23:44 98.4 116 17 152/103 97 Room Air 98.4 Status: improved Disposition: HOME, SELF-CARE Condition: Stable Scripts Promethazine Hcl (PROMETHAZINE HCL) 25 Mg Supp.rect 25 MG RC Q6HR, #10 SUPP Prov: BIRD,ODALIS M.D. 05/04/18 Referrals: NON PHYSICIAN (PCP) Patient Instructions: Nausea and Vomiting, Adult Additional Instructions: Follow-up your Dr. in 2-3 days. Advance diet as tolerated. Return if worse. ODALIS BIRD M.D. May 04, 2018 00:29
[2018-05-04 00:32] LABS: ANION GAP 16 mmol/L (5-15); BLOOD UREA NITROGEN 10 mg/dL (7-18); CALCIUM 9.9 MG/DL (8.5-10.1); CARBON DIOXIDE 19 MMOL/L (21-32); CHLORIDE 101 MMOL/L (98-107); CREATININE 0.9 MG/DL (0.55-1.30); POTASSIUM 3.5 MMOL/L (3.5-5.1); SODIUM 136 MMOL/L (136-145)
[2018-05-04 01:41] VITALS: BP 138/83
[2018-05-04] MEDS ORDERED: PROMETHAZINE HC25 MG RC (01:43)
[2018-05-04] MEDS ORDERED: LR 1000ml 1,000 ML IV ONE (02:00)
[2018-05-04 02:13] LABS: APPEARANCE,URINE CLEAR; BILIRUBIN, URINE NEGATIVE (NEGATIVE); COLOR,URINE PALE YELLOW; GLUCOSE, URINE (UA) NEGATIVE (NEGATIVE); KETONES,URINE 3+ (NEGATIVE); LEUKOCYTE ESTERASE ,URINE NEGATIVE (NEGATIVE); NITRITE,URINE NEGATIVE (NEGATIVE); PH,URINE 6.5 (4.5-8.0); PROTEIN,URINE NEGATIVE (NEGATIVE); UROBILINOGEN,URINE NORMAL MG/DL (0.0-1.0)
[2018-05-04] MEDS ORDERED: Promethazine HCl 25 MG in NS 55 ML IVPB ONE (02:30)
[2018-05-04 02:44] VITALS: BP 138/83
== END 2018-05-04 02:45 | disposition home or self-care (01) ==
LOC: EMR 23:56
DX: G43.A0 Cyclical vomiting, in migraine, not intractable (principal); R10.84 Generalized abdominal pain; J45.909 Unspecified asthma, uncomplicated; Z88.2 Allergy status to sulfonamides; Z88.8 Allergy status to other drugs, medicaments and biological substances
CPT/HCPCS: 36415; 80048; 81001; 81025; 85025; 99281; J1630; J2405; J2550; J7120

== ENCOUNTER 2018-05-04 23:13 | Emergency (ER) | payer MEDICAID ==
[~2018-05-04] VITALS: Ht 172.7 cm; Wt 59.0 kg
[2018-05-04 23:28] VITALS: BP 133/99
[2018-05-04 23:33] VITALS: BP 0/0
--- NOTE | 2018-05-04 23:34 | Emergency Room Report ---
History of Present Illness General Chief Complaint: Vomiting Source: Patient, Medical Record Present Illness HPI Patient was seen briefly in the triage Had reported nausea and vomiting Inability to take oral intake After being put into the room to be examined patient apparently walked out of the room She was at the physician's station stating that if she is not going to be seen that she's going to go home And left without being seen or evaluated Allergies: Coded Allergies: PROCHLORPERAZINE (Verified Allergy, Intermediate, hives on left forearm, ) allergic reaction from pt was admitted to ED on 01/05/17 SULFA (SULFONAMIDE ANTIBIOTICS) (Verified Allergy, Unknown, 02/23/11) Patient History Last Menstrual Period: 2 weeks ago Now: No Nursing Documentation-PMH Past Medical History: No History, Except For Hx Cardiac Problems: No Hx Hypertension: No Hx Pacemaker: No Hx Asthma: Yes Hx COPD: No Hx Diabetes: No Hx Cancer: No Hx Gastrointestinal Problems: Yes - Cyclic vomiting syndrome Hx Dialysis: No Hx Neurological Problems: No Hx Cerebrovascular Accident: No Hx Transient Ischemic Attacks: No Hx Dementia: No Hx Alzheimer's Disease: No Hx Parkinson's Disease: No Hx Meningitis: No Hx Encephalitis: No Hx Seizures: No Hx Epilepsy: No Hx Multiple Sclerosis: No Hx Cerebral Palsy: No Hx Amyotrophic Lat Sclerosis: No Hx Guillian-[place] Syndrome: No Hx Paralysis: No Hx Peripheral Neuropathy: No Hx Spinal Cord Injury: No Hx Head Trauma: No Hx Traumatic Brain Injury: No Hx Memory Loss: No Hx Concentration Difficulty: No Hx Speech Problem: No Hx Tremors: No Hx Vertigo: No Hx Dizziness: No Hx Syncope: No Hx Headaches: No Hx Aphasia: No Hx Dysphasia: No Hx Numbness: No Hx Weakness: No Hx Fatigue: No Hx Neurologic Surgery: No Hx Brain Shunt: No Physical Exam Vital Signs Date Time Temp Pulse Resp B/P (MAP) Pulse Ox O2 Delivery O2 Flow Rate FiO2 05/04/18 23:20 98.5 114 22 133/99 96 Room Air 98.4 Medical Decision Making ER Course Patient left without being examined or evaluated Was placed into a room for further evaluation Last Vital Signs Date Time Temp Pulse Resp B/P (MAP) Pulse Ox O2 Delivery O2 Flow Rate FiO2 05/04/18 23:28 98.4 114 22 133/99 96 Room Air 98.4 Disposition: LEFT W/OUT BEING SEEN Condition: Unknown Jamehdor,Ali DO May 04, 2018 23:34
== END 2018-05-04 23:33 | disposition left against medical advice (07) ==
LOC: EMR 23:30
DX: R11.10 Vomiting, unspecified (principal); Z88.8 Allergy status to other drugs, medicaments and biological substances; Z88.2 Allergy status to sulfonamides; J45.909 Unspecified asthma, uncomplicated
CPT/HCPCS: 99281

== ENCOUNTER 2018-05-06 13:22 | Emergency (ER) | payer MEDICAID ==
[~2018-05-06] VITALS: Ht 172.7 cm; Wt 59.0 kg
[2018-05-06 13:44] VITALS: BP 168/124
[2018-05-06] MEDS ORDERED: LORazepam Inj 2mg/ml 1ml IV ONE (14:15)
[2018-05-06 14:34] LABS: APPEARANCE,URINE SLIGHTLY CLOUDY; BASOPHILS % (AUTO) 0.8 % (0.0-2.0); BILIRUBIN, URINE NEGATIVE (NEGATIVE); COLOR,URINE PALE YELLOW; EOSINOPHILS % (AUTO) 0.1 % (0.0-3.0); GLUCOSE, URINE (UA) NEGATIVE (NEGATIVE); HEMATOCRIT 40.6 % (37.0-47.0); HEMOGLOBIN 14.3 G/DL (12.0-16.0); KETONES,URINE 4+ (NEGATIVE); LEUKOCYTE ESTERASE ,URINE 1+ (NEGATIVE); MEAN CORPUSCULAR VOLUME 87 FL (80-99); MONOCYTES % (AUTO) 6.6 % (1.0-10.0); NEUTROPHILS % (AUTO) 71.5 % (45.0-75.0); NITRITE,URINE NEGATIVE (NEGATIVE); PH,URINE 7 (4.5-8.0); PLATELET COUNT 271 K/UL (150-450); PROTEIN,URINE 2+ (NEGATIVE); RED BLOOD COUNT 4.69 M/UL (4.20-5.40); RED CELL DISTRIBUTION WIDTH 10.7 % (11.6-14.8); UROBILINOGEN,URINE 1 MG/DL (0.0-1.0); WHITE BLOOD COUNT 10.8 K/UL (4.8-10.8)
--- NOTE | 2018-05-06 14:39 | Emergency Room Report ---
History of Present Illness General Chief Complaint: Nausea Source: Patient Present Illness HPI Patient is a 33-year-old female with a history of anxiety presents today with complaints of nausea and vomiting. She is a well known to the ED and has a previous diagnosis of "cyclical vomiting". She states she's been unable to tolerate fluids today and has vomited multiple times. She states she is nauseous at the moment. She states she's been unable to keep her Ativan down today and she is feeling anxious. She has a prescription for Zofran but states is not working. Denies diarrhea, abdominal pain, fever or associated symptoms. Allergies: Coded Allergies: PROCHLORPERAZINE (Verified Allergy, Intermediate, hives on left forearm, ) allergic reaction from pt was admitted to ED on 01/05/17 SULFA (SULFONAMIDE ANTIBIOTICS) (Verified Allergy, Unknown, 02/23/11) Patient History Last Menstrual Period: now Now: No Reviewed Nursing Documentation: PMH: Agreed; PSxH: Agreed Nursing Documentation-PMH Past Medical History: No History, Except For Hx Cardiac Problems: No Hx Hypertension: No Hx Pacemaker: No Hx Asthma: Yes Hx COPD: No Hx Diabetes: No Hx Cancer: No Hx Gastrointestinal Problems: Yes - Cyclic vomiting syndrome Hx Dialysis: No Hx Neurological Problems: No Hx Cerebrovascular Accident: No Hx Transient Ischemic Attacks: No Hx Dementia: No Hx Alzheimer's Disease: No Hx Parkinson's Disease: No Hx Meningitis: No Hx Encephalitis: No Hx Seizures: No Hx Epilepsy: No Hx Multiple Sclerosis: No Hx Cerebral Palsy: No Hx Amyotrophic Lat Sclerosis: No Hx Guillian-[place] Syndrome: No Hx Paralysis: No Hx Peripheral Neuropathy: No Hx Spinal Cord Injury: No Hx Head Trauma: No Hx Traumatic Brain Injury: No Hx Memory Loss: No Hx Concentration Difficulty: No Hx Speech Problem: No Hx Tremors: No Hx Vertigo: No Hx Dizziness: No Hx Syncope: No Hx Headaches: No Hx Aphasia: No Hx Dysphasia: No Hx Numbness: No Hx Weakness: No Hx Fatigue: No Hx Neurologic Surgery: No Hx Brain Shunt: No Review of Systems Gastrointestinal: Reports: nausea, vomiting All Other Systems: negative except mentioned in HPI Physical Exam Vital Signs Date Time Temp Pulse Resp B/P (MAP) Pulse Ox O2 Delivery O2 Flow Rate FiO2 05/06/18 13:31 97.9 99 20 168/124 98 Room Air 97.9 Sp02 EP Interpretation: reviewed, normal General Appearance: no apparent distress, alert, GCS 15, non-toxic, other - appears anxious Head: normocephalic, atraumatic Eyes: bilateral eye normal inspection, bilateral eye PERRL ENT: hearing grossly normal, normal pharynx, no angioedema, normal voice Neck: full range of motion, supple/symm/no masses Respiratory: chest non-tender, lungs clear, normal breath sounds, speaking full sentences Cardiovascular #1: regular rate, rhythm, no edema Cardiovascular #2: 2+ carotid (R), 2+ carotid (L), 2+ radial (R), 2+ radial (L) , 2+ dorsalis pedis (R), 2+ dorsalis pedis (L) Gastrointestinal: normal bowel sounds, non tender, soft, non-distended, no guarding, no rebound Rectal: deferred Genitourinary: normal inspection, no CVA tenderness Musculoskeletal: back normal, gait/station normal, normal range of motion, non- tender, calf tenderness Neurologic: alert, oriented x3, responsive, motor strength/tone normal, sensory intact, speech normal Psychiatric: judgement/insight normal, memory normal, mood/affect normal, no suicidal/homicidal ideation Reflexes: 3+ bicep (R), 3+ bicep (L), 3+ tricep (R), 3+ tricep (L), 3+ knee (R) , 3+ knee (L) Skin: normal color, no rash, warm/dry, well hydrated Lymphatic: no adenopathy Medical Decision Making PA Attestation supervising physician Dr. Rust Reaction to Intervention: Improved Diagnostic Impression: Primary Impression: Cannabis hyperemesis syndrome concurrent with and due to cannabis abuse Additional Impression: Nausea & vomiting ER Course Patient is well known to the ED for cyclical vomiting. She denies smoking marijuana recently to me and is found to be positive for THC in the ED today. It patient's given 1 L of IV fluids, Zofran and Ativan with improvement of symptoms on reevaluation at 1546. Abdomen is soft and nontender. Patient is able to tolerate by mouth fluids without difficulty and is instructed to follow- up with PCP. She is also instructed to avoid the use of marijuana. Imaging is considered but not indicated at this time. Patient states Zofran has not been working at home so she is given a prescription for Reglan. Patient understands plan and is agreeable. Last Vital Signs Date Time Temp Pulse Resp B/P (MAP) Pulse Ox O2 Delivery O2 Flow Rate FiO2 05/06/18 13:44 97.9 99 20 168/124 98 Room Air 97.9 Status: improved Disposition: HOME, SELF-CARE Condition: Stable Scripts Metoclopramide Hcl* (REGLAN*) 10 Mg Tablet 10 MG ORAL THREE TIMES A DAY, #20 TAB Prov: Tracey Mosher 05/06/18 Referrals: NON PHYSICIAN (PCP) Patient Instructions: Nausea and Vomiting, Adult Tracey Mosher May 06, 2018 14:39
[2018-05-06 14:58] LABS: ANION GAP 17 mmol/L (5-15); BLOOD UREA NITROGEN 10 mg/dL (7-18); CALCIUM 9.5 MG/DL (8.5-10.1); CARBON DIOXIDE 22 MMOL/L (21-32); CHLORIDE 100 MMOL/L (98-107); CREATININE 0.8 MG/DL (0.55-1.30); SODIUM 139 MMOL/L (136-145)
[2018-05-06 15:01] LABS: ALANINE AMINOTRANSFERASE 21 U/L (12-78); ALBUMIN 4.4 G/DL (3.4-5.0); ALBUMIN/GLOBULIN RATIO 1.3 (1.0-2.7); ALKALINE PHOSPHATASE 47 U/L (46-116); ASPARTATE AMINO TRANSFERASE 17 U/L (15-37); BILIRUBIN,TOTAL 0.7 MG/DL (0.2-1.0)
[2018-05-06] MEDS ORDERED: REGLAN10 M1 ORAL (15:47)
[2018-05-06 16:53] VITALS: BP 128/65
== END 2018-05-06 16:55 | disposition home or self-care (01) ==
LOC: EMR 13:46
DX: G43.A0 Cyclical vomiting, in migraine, not intractable (principal); F12.188 Cannabis abuse with other cannabis-induced disorder; Z88.2 Allergy status to sulfonamides; Z88.8 Allergy status to other drugs, medicaments and biological substances; J45.909 Unspecified asthma, uncomplicated
CPT/HCPCS: 36415; 80053; 80307; 81003; 81025; 83690; 85025; 96361; 96374; 96375; 99285; J2405

== ENCOUNTER 2018-05-07 02:08 | Inpatient (IN) | payer MEDICAID ==
[~2018-05-07] VITALS: Ht 172.7 cm; Wt 60.1 kg
[~2018-05-07 02:08] MED LIST changes: +REGLAN10 M1 ORAL
[2018-05-07 02:21] VITALS: BP 149/96
[2018-05-07] MEDS ORDERED: Promethazine HCl 50 MG in NS 110 ML IVPB ONE (02:30)
[2018-05-07] MEDS ORDERED: Haloperidol Lactate 5 MG in D5W 55 ML IVPB ONE (02:30)
--- NOTE | 2018-05-07 02:38 | Emergency Room Report ---
History of Present Illness General Chief Complaint: Vomiting Source: Patient, Medical Record Present Illness HPI This is a 33-year-old female with a history of cyclic vomiting syndrome and anxiety. She has numerous visit for intractable vomiting. She was just admitted and of the month and discharged on May 03. Since then she's been here every single day with chief complaint abdominal pain with vomiting. No diarrhea. Unable to keep anything down. Vomiting is nonbloody nonbilious. She said even her Zofran OTD his cause her to vomit. She felt dehydrated and dizzy. Pain is 10 out of 10. No fever chills. Allergies: Coded Allergies: PROCHLORPERAZINE (Verified Allergy, Intermediate, hives on left forearm, ) allergic reaction from pt was admitted to ED on 01/05/17 SULFA (SULFONAMIDE ANTIBIOTICS) (Verified Allergy, Unknown, 02/23/11) Patient History Past Medical History: see triage record, old chart reviewed, psych hx Past Surgical History: other Pertinent Family History: none Social History: Denies: smoking Last Menstrual Period: today Now: No Immunizations: other Reviewed Nursing Documentation: PMH: Agreed; PSxH: Agreed Nursing Documentation-PMH Hx Cardiac Problems: No Hx Hypertension: No Hx Pacemaker: No Hx Asthma: Yes Hx COPD: No Hx Diabetes: No Hx Cancer: No Hx Gastrointestinal Problems: Yes - Cyclic vomiting syndrome Hx Dialysis: No Hx Neurological Problems: No Hx Cerebrovascular Accident: No Hx Transient Ischemic Attacks: No Hx Dementia: No Hx Alzheimer's Disease: No Hx Parkinson's Disease: No Hx Meningitis: No Hx Encephalitis: No Hx Seizures: No Hx Epilepsy: No Hx Multiple Sclerosis: No Hx Cerebral Palsy: No Hx Amyotrophic Lat Sclerosis: No Hx Guillian-[place] Syndrome: No Hx Paralysis: No Hx Peripheral Neuropathy: No Hx Spinal Cord Injury: No Hx Head Trauma: No Hx Traumatic Brain Injury: No Hx Memory Loss: No Hx Concentration Difficulty: No Hx Speech Problem: No Hx Tremors: No Hx Vertigo: No Hx Dizziness: No Hx Syncope: No Hx Headaches: No Hx Aphasia: No Hx Dysphasia: No Hx Numbness: No Hx Weakness: No Hx Fatigue: No Hx Neurologic Surgery: No Hx Brain Shunt: No Review of Systems Eye: Denies: eye pain, blurred vision ENT: Denies: ear pain, nose congestion, throat swelling Respiratory: Denies: cough, shortness of breath Cardiovascular: Denies: chest pain, palpitations Gastrointestinal: Reports: abdominal pain, nausea, vomiting; Denies: diarrhea Musculoskeletal: Denies: back pain, joint pain Skin: Denies: rash Neurological: Denies: headache, numbness Endocrine: Denies: increased thirst, increased urine Hematologic/Lymphatic: Denies: easy bruising All Other Systems: negative except mentioned in HPI Physical Exam Vital Signs Date Time Temp Pulse Resp B/P (MAP) Pulse Ox O2 Delivery O2 Flow Rate FiO2 05/07/18 02:12 97.8 98 18 149/96 96 Room Air 97.9 vitals normal Sp02 EP Interpretation: reviewed, normal General Appearance: well appearing, no apparent distress, alert Head: normocephalic, atraumatic Eyes: bilateral eye PERRL, bilateral eye EOMI ENT: hearing grossly normal, normal pharynx Neck: full range of motion, supple, no meningismus Respiratory: chest non-tender, lungs clear, normal breath sounds Cardiovascular #1: regular rate, rhythm, no murmur Gastrointestinal: non tender, no mass, no organomegaly, no bruit, non-distended , tenderness - diffusely, decreased bowel sounds Musculoskeletal: back normal, gait/station normal, normal range of motion Psychiatric: anxious Skin: warm/dry Medical Decision Making Diagnostic Impression: Primary Impression: Intractable nausea and vomiting Qualified Codes: G43.A1 - Cyclical vomiting, intractable Additional Impressions: Dehydration Hypokalemia ER Course Patient presents with intractable nausea and vomiting. No evidence of any obstruction. She does appear to be dehydrated. Labs unremarkable. We'll admit for IV hydration and further workup. There is a strong psychogenic component to this. She's already seen a psychiatrist on her previous admission. I discussed the case with Dr. Jeong who will admit. Lab Results Impression labs with hypokalemia Last Vital Signs Date Time Temp Pulse Resp B/P (MAP) Pulse Ox O2 Delivery O2 Flow Rate FiO2 05/07/18 02:21 97.9 98 18 149/96 96 Room Air 97.9 Status: improved Disposition: ADMITTED INPATIENT Condition: Serious Referrals: Kenneth Waktins MD (PCP) ODALIS BIRD M.D. May 07, 2018 02:38
[2018-05-07 02:52] LABS: BASOPHILS % (AUTO) 0.6 % (0.0-2.0); EOSINOPHILS % (AUTO) 0.2 % (0.0-3.0); HEMATOCRIT 40.2 % (37.0-47.0); HEMOGLOBIN 13.9 G/DL (12.0-16.0); MEAN CORPUSCULAR VOLUME 86 FL (80-99); MONOCYTES % (AUTO) 5.7 % (1.0-10.0); NEUTROPHILS % (AUTO) 72.5 % (45.0-75.0); PLATELET COUNT 269 K/UL (150-450); RED BLOOD COUNT 4.69 M/UL (4.20-5.40); RED CELL DISTRIBUTION WIDTH 10.8 % (11.6-14.8); WHITE BLOOD COUNT 12.8 K/UL (4.8-10.8)
[2018-05-07 03:11] LABS: APPEARANCE,URINE CLEAR; BILIRUBIN, URINE NEGATIVE (NEGATIVE); GLUCOSE, URINE (UA) NEGATIVE (NEGATIVE); KETONES,URINE 4+ (NEGATIVE); LEUKOCYTE ESTERASE ,URINE NEGATIVE (NEGATIVE); NITRITE,URINE NEGATIVE (NEGATIVE); PH,URINE 6 (4.5-8.0); PROTEIN,URINE 2+ (NEGATIVE); UROBILINOGEN,URINE 1 MG/DL (0.0-1.0)
[2018-05-07 03:16] LABS: ANION GAP 15 mmol/L (5-15); BLOOD UREA NITROGEN 10 mg/dL (7-18); CALCIUM 9.2 MG/DL (8.5-10.1); CARBON DIOXIDE 21 MMOL/L (21-32); CHLORIDE 98 MMOL/L (98-107); CREATININE 0.7 MG/DL (0.55-1.30); SODIUM 134 MMOL/L (136-145)
[2018-05-07 03:27] LABS: COLOR,URINE YELLOW
[2018-05-07 04:16] VITALS: BP 117/71
[2018-05-07] MEDS ORDERED: DiphenhydrAMINE 50mg/ml Inj IVP ONE (05:00)
[2018-05-07 05:17] VITALS: BP 149/91
[2018-05-07 08:00] VITALS: BP 137/96
[2018-05-07] MEDS ORDERED: LORazepam Inj 2mg/ml 1ml IV PRN (08:15)
[2018-05-07] MEDS ORDERED: Docusate 100mg cap ORAL SCH (09:00)
[2018-05-07 09:58] VITALS: BP 137/96
[2018-05-07 10:17] LABS: ANION GAP 16 mmol/L (5-15); BLOOD UREA NITROGEN 7 mg/dL (7-18); CALCIUM 8.9 MG/DL (8.5-10.1); CARBON DIOXIDE 19 MMOL/L (21-32); CHLORIDE 102 MMOL/L (98-107); CREATININE 0.7 MG/DL (0.55-1.30); POTASSIUM 3.1 MMOL/L (3.5-5.1); SODIUM 137 MMOL/L (136-145)
[2018-05-07 10:19] LABS: PHOSPHORUS 2.5 MG/DL (2.5-4.9)
--- NOTE | 2018-05-07 14:00 | History and Physical Report ---
DATE OF ADMISSION: 05/07/2018 CONSULTING PHYSICIAN: Joni Montes M.D. REASON FOR ADMISSION: Cyclic nausea and vomiting. HISTORY OF PRESENT ILLNESS: The patient is a 33-year-old female, who was just recently discharged for cyclic nausea and vomiting. During that hospitalization prior to discharge, the patient refused to leave. She continues to have cyclic nausea and vomiting and requesting narcotics, Haldol and benzodiazepines for treatment. The patient on her last admission was cleared by Gastroenterology and General surgery. She once again returns complaining of nausea and vomiting. ALLERGIES: 1. Sulfa. 2. Prochlorperazine. PAST MEDICAL HISTORY: Cyclic nausea and vomiting, anxiety disorder. PAST SURGICAL HISTORY: Noncontributory. SOCIAL HISTORY: The patient denies any current tobacco, alcohol, or illicit drug use. REVIEW OF SYSTEMS: NEUROLOGIC: The patient denies headache, change in vision, syncope, or presyncopal episodes. CARDIOVASCULAR: No current chest pain, palpitations, or angina. PULMONARY: No difficulty breathing, productive cough, or sputum. GASTROINTESTINAL/GENITOURINARY: The patient is having nausea and vomiting. No diarrhea. ENDOCRINOLOGY: No night sweats, fevers, or chills. PHYSICAL EXAMINATION: VITAL SIGNS: Blood pressure 149/91, pulse 101, temperature 99.1, and 100% oxygen saturation on room air. GENERAL: The patient awake, alert, not otherwise in distress. HEENT: Extraocular muscles intact. No lymphadenopathy noted. CARDIOVASCULAR: S1 and S2. No rubs or gallops. PULMONARY: Clear to auscultation bilaterally. No rales, rhonchi, or wheezes. ABDOMEN: Nondistended, nontender. Good bowel sounds in all four quadrants. EXTREMITIES: No edema. LABORATORY DATA: Laboratories dated May 07, 2018, sodium 134, potassium 3, creatinine 0.7, and calcium 9.2. White cell count 12.8, hemoglobin 13.9, and platelet count 269. ASSESSMENT AND PLAN: 1. Cyclic nausea and vomiting. At this time, the patient does seem to have a component of drug-seeking ability. The patient is requesting benzodiazepines and narcotics constantly. At this time, the patient had been cleared previously by Gastroenterology and General surgery. We will consult Psychiatry for further evaluation of possible Munchausen syndrome. We will also consult GI once again for her nausea and vomiting. 2. Hypokalemia. We will replace aggressively and continue to monitor. 3. 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 Psychiatry has been consulted. 4. Narcotic dependency. The patient continues to request and demand benzodiazepines and narcotics. These are not treatments for nausea and vomiting. These will not be given. Psychiatry has been consulted. We will also consult Social Work to evaluate home situation. 5. Leukocytosis, mild in nature. We will consult Infectious Disease. Joni Montes MD DR: NITIN JOB#: [id number] CC: TERESA
--- NOTE | 2018-05-08 09:38 | Discharge Summary ---
Discharge Summary Discharge Summary _ DATE OF ADMISSION: 05/07/2018 DATE OF DISCHARGE: 05/07/2018 BRIEF HOSPITAL COURSE: Patient is a 33-year-old female, who was just discharged on 05/03/2018 for cyclic nausea and vomiting, she was cleared by GI and surgery for discharge. Since then she presented to ED multiple times, requesting for narcotics, Haldol and benzodiazepines for treatment. She presented again to ED where she was noted to have mild mild leukocytosis, WBC 12.8 and appeared to be dehydrated with potassium of 3. She was then admitted for cyclic nausea and vomiting, with component of drug- seeking behavior. She was given IV hydration and IV potassium replacement. She was admitted for a psychiatric evaluation of possible Manchausen syndrome. She continued to request an demand for benzodiazepines and narcotics; explained these are not the treatments for nausea and vomiting. Social service was called for home safety evaluation. Full treatment was not carried out as patient left AGAINST MEDICAL ADVICE. 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 I have been assigned to dictate discharge summary on this account, and I was not involved in the patient's management. Noelle Ann NP May 08, 2018 09:38
== END 2018-05-07 10:30 | disposition left against medical advice (07) | DRG 249 ==
LOC: EMR 02:34 → 4E 03:00 → EDBEDREQ 03:36 → 4E 05:11
DX: R11.2 Nausea with vomiting, unspecified (principal); F19.20 Other psychoactive substance dependence, uncomplicated; Z53.21 Procedure and treatment not carried out due to patient leaving prior to being seen by health care provider; Z76.5 Malingerer [conscious simulation]; D72.829 Elevated white blood cell count, unspecified; E87.6 Hypokalemia; E86.0 Dehydration
CPT/HCPCS: 36415; 80048; 81003; 83735; 84100; 85025; 99285

== ENCOUNTER 2018-12-31 04:48 | Inpatient (IN) | payer MEDICAID ==
[~2018-12-31] VITALS: Ht 171.4 cm; Wt 63.0 kg
[2018-12-31] VITALS (7 sets, daily range): BP systolic 116–147; BP diastolic 54–97
--- NOTE | 2018-12-31 05:00 | NUR ---
ED Nurse Note: pt walked in c/o abdominal pain since 0200 this morning 12/31/18, pt is actively vomting. pt vss at the moment, pt skin is moist, and clammy, pt cooperative and is aox4
--- NOTE | 2018-12-31 05:08 | Emergency Room Report ---
History of Present Illness General Chief Complaint: Abdominal Pain Source: Patient, Medical Record (Sam Moore MD) Present Illness HPI This is a 33-year-old female with history of cyclic vomiting syndrome. She has been here and admitted here multiple times in the past. She had had an episode for over 10 months. She presents with abdominal pain with vomiting tonight. She said she under a lot of stress lately. Denies any fever chills. Denies any diarrhea. Pain is sharp and crampy. Multiple episode vomiting. Nonbloody nonbilious. Pain is 10 out of 10. Similar symptoms in the past. (Sam Moore MD) Allergies: Coded Allergies: SULFA (SULFONAMIDE ANTIBIOTICS) (Verified Allergy, Unknown, 02/23/11) Patient History Past Medical History: see triage record, old chart reviewed Past Surgical History: none Pertinent Family History: none Social History: Denies: smoking Last Menstrual Period: dec Now: No Immunizations: other Reviewed Nursing Documentation: PMH: Agreed; PSxH: Agreed (Sam Moore MD) Pertinent Family History: none Now: No (Miguel Rust MD) Nursing Documentation-PMH Hx Cardiac Problems: No Hx Hypertension: No Hx Pacemaker: No Hx Asthma: Yes Hx COPD: No Hx Diabetes: No Hx Cancer: No Hx Gastrointestinal Problems: Yes - Cyclic vomiting syndrome Hx Dialysis: No Hx Neurological Problems: No Hx Cerebrovascular Accident: No Hx Transient Ischemic Attacks: No Hx Dementia: No Hx Alzheimer's Disease: No Hx Parkinson's Disease: No Hx Meningitis: No Hx Encephalitis: No Hx Seizures: No Hx Epilepsy: No Hx Multiple Sclerosis: No Hx Cerebral Palsy: No Hx Amyotrophic Lat Sclerosis: No Hx [place] Syndrome: No Hx Paralysis: No Hx Peripheral Neuropathy: No Hx Spinal Cord Injury: No Hx Head Trauma: No Hx Traumatic Brain Injury: No Hx Memory Loss: No Hx Concentration Difficulty: No Hx Speech Problem: No Hx Tremors: No Hx Vertigo: No Hx Dizziness: No Hx Syncope: No Hx Headaches: No Hx Aphasia: No Hx Dysphasia: No Hx Numbness: No Hx Weakness: No Hx Fatigue: No Hx Neurologic Surgery: No Hx Brain Shunt: No (Sam Moore MD) Review of Systems Eye: Denies: eye pain, blurred vision ENT: Denies: ear pain, nose congestion, throat swelling Respiratory: Denies: cough, shortness of breath Cardiovascular: Denies: chest pain, palpitations Gastrointestinal: Reports: abdominal pain, nausea, vomiting Musculoskeletal: Denies: back pain, joint pain Skin: Denies: rash Neurological: Denies: headache, numbness Endocrine: Denies: increased thirst, increased urine Hematologic/Lymphatic: Denies: easy bruising All Other Systems: negative except mentioned in HPI (Sam Moore MD) Physical Exam Vital Signs Date Time Temp Pulse Resp B/P (MAP) Pulse Ox O2 Delivery O2 Flow Rate FiO2 12/31/18 04:50 98.2 111 16 147/97 97 Room Air vitals tachycardia Sp02 EP Interpretation: reviewed, normal General Appearance: well appearing, no apparent distress, alert Head: normocephalic, atraumatic Eyes: bilateral eye PERRL, bilateral eye EOMI ENT: hearing grossly normal, normal pharynx Neck: full range of motion, supple, no meningismus Respiratory: chest non-tender, lungs clear, normal breath sounds Cardiovascular #1: regular rate, rhythm, no murmur Gastrointestinal: non tender, no mass, no organomegaly, no bruit, non-distended , tenderness - Mild, diffuse, decreased bowel sounds Musculoskeletal: back normal, gait/station normal, normal range of motion Psychiatric: anxious Skin: warm/dry (Sam Moore MD) Medical Decision Making Diagnostic Impression: Primary Impression: Cyclic vomiting syndrome Qualified Codes: G43.A1 - Cyclical vomiting, intractable Additional Impressions: Abdominal pain Qualified Codes: R10.84 - Generalized abdominal pain Dehydration Anxiety ER Course Patient presents with cyclic vomiting syndrome with intractable vomiting. She received fluids here and multiple doses of nausea medication. Still felt nauseous but no longer vomiting. Heart rate stable. We'll observe after IV fluids. If no longer vomiting may be discharged home. Labs unremarkable. Lab Results Impression labs unremarkable (Sam Moore MD) ER Course Hospital Course 33-year-old F presents to ED with epigastric pain with N/V. Clinical course Patient initially seen and evaluated by Dr Moore; please see his note for full history and physical Labs - no leukocytosis, no electrolyte abnormalities, LFTs normal Patient allowed to rest. Patient wakes up feeling anxious, vomiting. States that she is not able to tolerate by mouth intake. She has been given multiple rounds of medication without significant improvement. Patient will require admission Patient will be admitted to Dr. Montes I feel this is a highly complex case requiring extensive working including EKG/ Rhythm strip, Xray/CT/US, Blood/urine lab work, repeat exams while in ED, and administration of strong opiates/narcotics for pain control, admission to hospital or close patient follow up. Diagnosis - cyclical vomiting syndrome, abdominal pain, dehydration,anxiety Admitted to floor in serious condition Labs Test 12/31/18 05:05 White Blood Count 10.9 K/UL (4.8-10.8) Red Blood Count 4.69 M/UL (4.20-5.40) Hemoglobin 14.0 G/DL (12.0-16.0) Hematocrit 41.3 % (37.0-47.0) Mean Corpuscular Volume 88 FL (80-99) Mean Corpuscular Hemoglobin 29.9 PG (27.0-31.0) Mean Corpuscular Hemoglobin Concent 33.9 G/DL (32.0-36.0) Red Cell Distribution Width 11.7 % (11.6-14.8) Platelet Count 241 K/UL (150-450) Mean Platelet Volume 6.6 FL (6.5-10.1) Neutrophils (%) (Auto) 68.9 % (45.0-75.0) Lymphocytes (%) (Auto) 25.5 % (20.0-45.0) Monocytes (%) (Auto) 4.5 % (1.0-10.0) Eosinophils (%) (Auto) 0.1 % (0.0-3.0) Basophils (%) (Auto) 1.1 % (0.0-2.0) Urine Color Pale yellow Urine Appearance Clear Urine pH 7 (4.5-8.0) Urine Specific [place] 1.010 (1.005-1.035) Urine Protein 1+ (NEGATIVE) Urine Glucose (UA) 1+ (NEGATIVE) Urine Ketones 4+ (NEGATIVE) Urine Blood 2+ (NEGATIVE) Urine Nitrite Negative (NEGATIVE) Urine Bilirubin Negative (NEGATIVE) Urine Urobilinogen Normal MG/DL (0.0-1.0) Urine Leukocyte Esterase Negative (NEGATIVE) Urine RBC 2-4 /HPF (0 - 2) Urine WBC 0-2 /HPF (0 - 2) Urine Squamous Epithelial Cells Moderate /LPF (NONE/OCC) Urine Bacteria Few /HPF (NONE) Urine HCG, Qualitative Negative (NEGATIVE) Sodium Level 142 MMOL/L (136-145) Potassium Level 3.3 MMOL/L (3.5-5.1) Chloride Level 104 MMOL/L (98-107) Carbon Dioxide Level 23 MMOL/L (21-32) Anion Gap 15 mmol/L (5-15) Blood Urea Nitrogen 11 mg/dL (7-18) Creatinine 1.1 MG/DL (0.55-1.30) Estimat Glomerular Filtration Rate 58.0 mL/min (>60) Glucose Level 165 MG/DL (74-106) Calcium Level 10.2 MG/DL (8.5-10.1) (Miguel Rust MD) Rhythm Strip Diag. Results EP Interpretation: yes Rate: 90 Rhythm: NSR, no PVC's, no ectopy (Sam Moore MD) Last Vital Signs Date Time Temp Pulse Resp B/P (MAP) Pulse Ox O2 Delivery O2 Flow Rate FiO2 12/31/18 04:50 98.2 111 16 147/97 97 Room Air Status: improved (Sma Moore MD) Status: improved (Miguel Rust MD) Disposition: ADMITTED INPATIENT Condition: Serious Additional Instructions: advance diet as tolerated. Follow-up with your DR in 2-3 days for recheck. Return if worse. Continue with your Zofran. Sam Moore MD Dec 31, 2018 05:08 Miguel Rust MD Dec 31, 2018 14:55
[2018-12-31] MEDS ORDERED: LORazepam Inj 2mg/ml 1ml IV ONE ×2 (05:15→11:30)
[2018-12-31 05:21] LABS: BASOPHILS % (AUTO) 1.1 % (0.0-2.0); EOSINOPHILS % (AUTO) 0.1 % (0.0-3.0); HEMATOCRIT 41.3 % (37.0-47.0); LYMPHOCYTES % (AUTO) 25.5 % (20.0-45.0); MEAN CORPUSCULAR VOLUME 88 FL (80-99); MONOCYTES % (AUTO) 4.5 % (1.0-10.0); NEUTROPHILS % (AUTO) 68.9 % (45.0-75.0); PLATELET COUNT 241 K/UL (150-450); RED BLOOD COUNT 4.69 M/UL (4.20-5.40); RED CELL DISTRIBUTION WIDTH 11.7 % (11.6-14.8); WHITE BLOOD COUNT 10.9 K/UL (4.8-10.8)
[2018-12-31] MEDS ORDERED: Morphine Sulfate 4mg/ml Inj (IV/IM USE ONLY) IVP ONE ×2 (05:30→06:00)
[2018-12-31 05:34] LABS: ANION GAP 15 mmol/L (5-15); BLOOD UREA NITROGEN 11 mg/dL (7-18); CALCIUM 10.2 MG/DL (8.5-10.1); CARBON DIOXIDE 23 MMOL/L (21-32); CHLORIDE 104 MMOL/L (98-107); CREATININE 1.1 MG/DL (0.55-1.30); POTASSIUM 3.3 MMOL/L (3.5-5.1); SODIUM 142 MMOL/L (136-145)
[2018-12-31] MEDS ORDERED: Metoclopramide 10mg/2ml Inj IVP ONE (06:00)
[2018-12-31 06:19] LABS: APPEARANCE,URINE CLEAR; BILIRUBIN, URINE NEGATIVE (NEGATIVE); COLOR,URINE PALE YELLOW; GLUCOSE, URINE (UA) 1+ (NEGATIVE); KETONES,URINE 4+ (NEGATIVE); LEUKOCYTE ESTERASE ,URINE NEGATIVE (NEGATIVE); NITRITE,URINE NEGATIVE (NEGATIVE); PH,URINE 7 (4.5-8.0); PROTEIN,URINE 1+ (NEGATIVE); UROBILINOGEN,URINE NORMAL MG/DL (0.0-1.0)
[2018-12-31] MEDS ORDERED: Promethazine HCl 25 MG in NS 55 ML IVPB ONE ×2 (06:30→11:30)
--- NOTE | 2018-12-31 07:14 | NUR ---
HAND-OFF: Report given to vanessa escobar.
--- NOTE | 2018-12-31 07:15 | NUR ---
ED Nurse Note: Received pt resting on bed with no distress. VSS. Will continue to assess.
--- NOTE | 2018-12-31 08:30 | NUR ---
ED Nurse Note: Dr Rust at the bed side.
--- NOTE | 2018-12-31 11:20 | NUR ---
ED Nurse Note: Pt ambulated to the restroom with steady gait.
--- NOTE | 2018-12-31 11:24 | NUR ---
ED Nurse Note: Pt ambulates back to her bed. Pt still belching and tries to vomit. ER MD is aware.
[2018-12-31] MEDS ORDERED: Haloperidol 5mg/ml Inj IM ONE (12:00)
--- NOTE | 2018-12-31 13:04 | NUR ---
ED Nurse Note: CALLED 3E- PER TEODORO CALL BACK IN 10 MINUTES
--- NOTE | 2018-12-31 13:10 | NUR ---
ED Nurse Note: Report given by Sydnee RN to Rigo COLLINS of Med Surg unit.
[2018-12-31] MEDS ORDERED: Metoclopramide 10mg/2ml Inj IVP PRN (13:15)
--- NOTE | 2018-12-31 13:45 | NUR ---
NURSE NOTES: Received patient awake alert and oriented from ED. Belongings accounted for. Patient oriented to room. IV at right external jugular. Bed at lowest level with 2 side rails up. Call light within reach. In no apparent distress at this time. Will continue to monitor.
[2018-12-31] MEDS: D5NS 1,000 ML IV SCH (14:05)
--- NOTE | 2018-12-31 17:15 | History and Physical Report ---
DATE OF ADMISSION: 12/31/2018 REASON FOR ADMISSION: Nausea and vomiting. HISTORY OF PRESENT ILLNESS: The patient is a 33-year-old female with a well-known history of cyclic vomiting syndrome. The patient has been admitted here several times. She has left in the past against medical advice. The patient continues to have nausea and vomiting type cyclic syndrome. The patient is always complaining of pain, demanding narcotics. The patient says the only thing that controls her nausea and vomiting syndrome is narcotics, specifically opioids consisting of either morphine or Dilaudid. No current chest pain. The patient is currently sedated on Haldol and Ativan. Upon questioning, the patient would open eyes, but would not answer questions. ALLERGIES: Sulfa. PAST MEDICAL HISTORY: 1. Opioid dependency. 2. Cyclic vomiting. PAST SURGICAL HISTORY: None. SOCIAL HISTORY: No tobacco, alcohol, or illicit drug use. FAMILY HISTORY: Noncontributory. REVIEW OF SYSTEMS: NEUROLOGIC: The patient denies headache, change in vision, syncope, or presyncopal episodes. CARDIOVASCULAR: No current chest pain, palpitations, or angina. PULMONARY: No difficulty breathing, productive cough, or sputum. GASTROINTESTINAL/GENITOURINARY: The patient having nausea, vomiting. No diarrhea. ENDOCRINOLOGY: No night sweats, fevers, or chills. LABORATORY DATA: Dated 12/31/2018, sodium 142, potassium 3.3, BUN 11, creatinine 1.1, calcium 10.2. Urinalysis contaminated. Urine hCG negative. White cell count 10.9, hemoglobin 14, and platelet count 241. PHYSICAL EXAMINATION: VITAL SIGNS: Blood pressure 118/62, respiratory rate 18, pulse 72, temperature 98.2, 100% oxygen saturation on room air. GENERAL: The patient is somnolent, but arousable after sedation. HEENT: Extraocular muscles intact. No lymphadenopathy. Oropharyngeal mucosa clear and dry. CARDIOVASCULAR: S1 and S2. No rubs or gallops. PULMONARY: Clear to auscultation bilaterally. No rales, rhonchi, or wheezes. ABDOMEN: Nondistended with good bowel sounds. Nontender. EXTREMITIES: No edema. ASSESSMENT AND PLAN: 1. Cyclic nausea and vomiting. At this time, the patient is known to our healthcare system and is an opioid-dependent patient. The patient gets very confrontational, combative when opioids such as Dilaudid or morphine are not given to treat her nausea and vomiting. Gastroenterology has been consulted. Again, we will hold all narcotics. Last occasion at this hospital that I was involved and the patient got very upset when narcotics were not given and she left against medical advice. At this time, we will treat her nausea and vomiting for organic etiology, but we will not be treating her emesis with narcotics, specifically opioids. 2. Opioid dependency. At this time, we will consult nephrology social worker for substance abuse. 3. DVT prophylaxis with SCDs. At this time, we will do the best to treat the patient effectively for any organic causes of nausea and vomiting. We do know she has a history of opioid dependency and gets very confrontational and argumentative when we do not give her IV narcotics. We will consult nephrology social worker for substance abuse education and outpatient placement. Joni Montes MD DR: TALON JOB#: [id number] CC:
--- NOTE | 2018-12-31 19:06 | General Progress Note ---
Assessment/Plan Assessment/Plan GI Consult Dictated Advance diet as tolerated Minimize narcotics Thank you Monika Cheney MD Subjective Allergies: Coded Allergies: SULFA (SULFONAMIDE ANTIBIOTICS) (Verified Allergy, Unknown, 02/23/11) Objective Last 24 Hour Vital Signs Date Time Temp Pulse Resp B/P (MAP) Pulse Ox O2 Delivery O2 Flow Rate FiO2 12/31/18 16:00 98.5 63 20 133/72 (92) 99 12/31/18 14:19 Room Air 12/31/18 13:25 98.2 70 18 118/62 100 Room Air 12/31/18 13:21 98.2 70 18 118/62 100 Room Air 12/31/18 11:30 98.9 77 16 122/65 100 Room Air 12/31/18 09:30 98.4 60 18 116/56 100 Room Air 12/31/18 07:36 97.9 63 18 121/64 98 Room Air 12/31/18 06:25 98.3 12/31/18 05:00 98.2 111 16 147/97 97 Room Air 12/31/18 05:00 111 16 Room Air 12/31/18 04:50 98.2 111 16 147/97 97 Room Air Intake and Output 12/30/18 12/31/18 19:00 07:00 # Voids 1 Laboratory Tests 12/31/18 05:05: White Blood Count 10.9H, Red Blood Count 4.69, Hemoglobin 14.0, Hematocrit 41.3 , Mean Corpuscular Volume 88, Mean Corpuscular Hemoglobin 29.9, Mean Corpuscular Hemoglobin Concent 33.9, Red Cell Distribution Width 11.7, Platelet Count 241, Mean Platelet Volume 6.6, Neutrophils (%) (Auto) 68.9, Lymphocytes (% ) (Auto) 25.5, Monocytes (%) (Auto) 4.5, Eosinophils (%) (Auto) 0.1, Basophils ( %) (Auto) 1.1, Urine Color Pale yellow, Urine Appearance Clear, Urine pH 7, Urine Specific [place] 1.010, Urine Protein 1+H, Urine Glucose (UA) 1+H, Urine Ketones 4+H, Urine Blood 2+H, Urine Nitrite Negative, Urine Bilirubin Negative, Urine Urobilinogen Normal, Urine Leukocyte Esterase Negative, Urine RBC 2-4H, Urine WBC 0-2, Urine Squamous Epithelial Cells ModerateH, Urine Bacteria Few, Urine HCG, Qualitative Negative, Sodium Level 142, Potassium Level 3.3L, Chloride Level 104, Carbon Dioxide Level 23, Anion Gap 15, Blood Urea Nitrogen 11, Creatinine 1.1, Estimat Glomerular Filtration Rate 58.0, Glucose Level 165H , Calcium Level 10.2H Height (Feet): 5 Height (Inches): 7.50 Weight (Pounds): 139 Monika Cheney MD Dec 31, 2018 19:06
--- NOTE | 2018-12-31 19:36 | NUR ---
HAND-OFF: Report given to DENNIS Solares.
--- NOTE | 2018-12-31 20:00 | NUR ---
NURSE NOTES: Patient received in bed, asleep, easily arousable, aox4. IV is intact on LEJ. IVF infusing. Call light in reach, will continue to monitor.
--- NOTE | 2018-12-31 20:04 | NUR ---
CASE MANAGEMENT: REVIEW BIBA FROM HOME CC: ABD PAIN SI: INTRACTABLE CYCLICAL VOMITING T 98.1 HR 56 RR 18 BP 118/54 SAT 99% ROOM AIR WBC 10.9 K 3.3 GLUCOSE 165 DONTRELL 10.2 IS: ZOFRAN IV X1 NS IVF BOLUS X1 MORPHINE IV X1 PROMETHAZINE IV X1 ATIVAN IV X1 REGLAN IV X1 HALDOL IM X1 PATIENT ADMITTED TO MED/SURG UNIT 12/31/2018 DCP: PATIENT IS FROM HOME
--- NOTE | 2018-12-31 22:30 | Consultation ---
DATE OF CONSULTATION: 12/31/2018 GASTROENTEROLOGY CONSULTATION: CONSULTING PHYSICIAN: Mnoika Cheney M.D. REFERRING PHYSICIAN: Joni Montes M.D. CHIEF COMPLAINT: I was asked to see this patient by Dr. Joni Montes for evaluation of vomiting and abdominal pain. HISTORY OF PRESENT ILLNESS: The patient is a pleasant 33-year-old white woman with apparent history of cyclic nausea and vomiting, comes into the hospital due to recurrent vomiting. The patient states that she is in the hospital in the past several times although the attacks occurred infrequently, perhaps a few times a year. On this occasion, she noted onset of vomiting since 2 o'clock in the morning and she came to the hospital. There has been no blood or coffee-ground in the emesis. She also had apparent chronic abdominal pain and asks for narcotics for her pain. She also takes CBD form of vaporizing pen, which she has been using that daily for the past 6 months. Her test in the emergency room was negative. She has had both endoscopy and colonoscopy in the past, which are negative. She has not been given Elavil treatment. PAST MEDICAL HISTORY: History of cyclic nausea and vomiting syndrome. ALLERGIES: Sulfa. FAMILY HISTORY: Noncontributory. SOCIAL HISTORY: The patient does not smoke or drink alcohol, but she does use CBD vaporizing pen on a daily basis. PAST SURGICAL HISTORY: None. REVIEW OF SYSTEMS: Otherwise negative. PHYSICAL EXAMINATION: GENERAL: A well-developed, well-nourished young woman, seen in her room. HEENT: Normocephalic and atraumatic. Sclerae are anicteric. Oropharynx clear. NECK: Supple. CHEST: Clear to auscultation. CARDIOVASCULAR: Revealed a regular rate. ABDOMEN: Soft and nontender with good bowel sounds. EXTREMITIES: No edema. LABORATORY DATA: Noted. IMAGING STUDIES: From October was reviewed. ASSESSMENT: This patient presents with apparent attack of nausea and vomiting, which she describes as attack of cyclic nausea and vomiting. The above features are not typical. She states that she will likely get better by tomorrow and would probably meet discharge criteria by then. I advised her about avoiding cannabis products and also possibly using Elavil for prevention and control of her attacks. These can be obtained through her primary care physician as an outpatient. For tonight, I would treat the patient empirically and her diet can be advanced as tolerated. I advised her that narcotics should be minimized since they play no role in the treatment of cyclic nausea and vomiting syndrome and in fact they may potentially make vomiting worse. RECOMMENDATION: Per above discussion and per orders written in the chart. Thank you for asking me to participate in the care of this patient. Monika Cheney M.D. DR: FLOYD JOB#: [id number] CC: TERESA
[2019-01-01] VITALS: BP 119/75
[2019-01-01] MEDS: D5NS 1,000 ML IV SCH ×2 (00:04→09:16)
[2019-01-01 04:00] VITALS: BP 129/59
--- NOTE | 2019-01-01 07:30 | NUR ---
NURSE NOTES: Report received from outgoing RN, rounds made. Patient resting in supine position, alert, oriented x4, calm. Denies pain/NV. IVF infusing at 100 ml/hr, to right jugular, site asymptomatic. Call light in reach, bed in lowest position. Wants to go home, Will continue to assess.
--- NOTE | 2019-01-01 07:38 | NUR ---
HAND-OFF: Report given to Mitzi COLLINS.
[2019-01-01 08:00] VITALS: BP 124/71
--- NOTE | 2019-01-01 09:25 | General Progress Note ---
Assessment/Plan Assessment/Plan Assessment - N/V - improved - abd pain - improved - h/o cyclic N/V per pt Recommendations - advance diet - wean off of narcotics - d/c planning Subjective Allergies: Coded Allergies: SULFA (SULFONAMIDE ANTIBIOTICS) (Verified Allergy, Unknown, 02/23/11) Subjective Feels better nausea improved pain better Objective Last 24 Hour Vital Signs Date Time Temp Pulse Resp B/P (MAP) Pulse Ox O2 Delivery O2 Flow Rate FiO2 01/01/19 04:00 98.1 70 19 129/59 (82) 99 01/01/19 00:00 98.2 87 19 119/75 (90) 99 12/31/18 21:00 Room Air 12/31/18 19:55 98.1 56 18 118/54 (75) 99 12/31/18 16:00 98.5 63 20 133/72 (92) 99 12/31/18 14:19 Room Air 12/31/18 13:25 98.2 70 18 118/62 100 Room Air 12/31/18 13:21 98.2 70 18 118/62 100 Room Air 12/31/18 11:30 98.9 77 16 122/65 100 Room Air 12/31/18 09:30 98.4 60 18 116/56 100 Room Air Intake and Output 12/31/18 01/01/19 19:00 07:00 Intake Total 2155 ml 1100 ml Balance 2155 ml 1100 ml Intake IV Total 2155 ml 1100 ml # Voids 1 Height (Feet): 5 Height (Inches): 7.50 Weight (Pounds): 139 Objective WDWN NCAT supple CTA RR abd soft no edema non focal Monika Cheney MD Jan 01, 2019 09:25
--- NOTE | 2019-01-01 09:49 | Pulmonology Progress Note ---
Assessment/Plan Assessment/Plan 1. Cyclic nausea and vomiting. At this time, the patient is known to our healthcare system and is an opioid-dependent patient. Doing better; will dc home 2. Opioid dependency. As above Subjective Interval Events: Feeling better Constitutional: Reports: no symptoms HEENT: Repors: no symptoms Respiratory: Reports: no symptoms Cardiovascular: Reports: no symptoms Gastrointestinal/Abdominal: Reports: no symptoms Genitourinary: Reports: no symptoms Allergies: Coded Allergies: SULFA (SULFONAMIDE ANTIBIOTICS) (Verified Allergy, Unknown, 02/23/11) Objective Last 24 Hour Vital Signs Date Time Temp Pulse Resp B/P (MAP) Pulse Ox O2 Delivery O2 Flow Rate FiO2 01/01/19 04:00 98.1 70 19 129/59 (82) 99 01/01/19 00:00 98.2 87 19 119/75 (90) 99 12/31/18 21:00 Room Air 12/31/18 19:55 98.1 56 18 118/54 (75) 99 12/31/18 16:00 98.5 63 20 133/72 (92) 99 12/31/18 14:19 Room Air 12/31/18 13:25 98.2 70 18 118/62 100 Room Air 12/31/18 13:21 98.2 70 18 118/62 100 Room Air 12/31/18 11:30 98.9 77 16 122/65 100 Room Air Intake and Output 12/31/18 01/01/19 19:00 07:00 Intake Total 2155 ml 1100 ml Balance 2155 ml 1100 ml Intake IV Total 2155 ml 1100 ml # Voids 1 General Appearance: no acute distress HEENT: normocephalic Respiratory/Chest: chest wall non-tender, lungs clear Cardiovascular: normal peripheral pulses, normal rate Abdomen: normal bowel sounds Current Medications Medications (Trade) Dose Ordered Sig/Shanta Route PRN Reason Start Time Stop Time Status Last Admin Dose Admin Acetaminophen (Tylenol) 650 mg Q4H PRN ORAL Mild Pain (Pain Scale 1-3) 12/31/18 13:15 01/30/19 13:14 Dextrose (Dextrose 50%) 25 ml Q30M PRN IV Hypoglycemia 12/31/18 13:15 01/30/19 13:14 Dextrose (Dextrose 50%) 50 ml Q30M PRN IV Hypoglycemia 12/31/18 13:15 01/30/19 13:14 Dextrose/Sodium Chloride 1,000 ml @ 100 mls/hr Q10H IV 12/31/18 15:00 01/30/19 14:59 01/01/19 09:16 Famotidine (Pepcid) 40 mg DAILY ORAL 01/01/19 09:00 01/31/19 08:59 01/01/19 09:07 Metoclopramide HCl (Reglan) 10 mg Q6H PRN IVP Nausea & Vomiting 12/31/18 13:15 01/30/19 13:14 Ondansetron HCl (Zofran) 4 mg Q6H PRN IVP Nausea & Vomiting 12/31/18 13:15 01/30/19 13:14 Sachin Davies MD Jan 01, 2019 09:49
--- NOTE | 2019-01-01 11:15 | NUR ---
Social Service Note SW met with patient to address multiple ER visits and narcotics dependency. Patient is alert, oriented and verbally responsive. Patient denies narcotic dependency and was not receptive to resources. SW addressed the importance of establishing a PCP and going to medical appointments. Patient implied she was not aware of her service provider. VINCE arranged a follow up appointment at [place] [id number], for SaturdayJan 06 at 220pm. Patient aware she will need to bring her ID to appointment. Nurse to include follow up appointment in discharge instructions.
[2019-01-01 12:00] VITALS: BP 113/81
[2019-01-01] MEDS ORDERED: ZOFRAN4 M3 ORAL (13:50)
--- NOTE | 2019-01-01 13:50 | NUR ---
NURSE NOTES: Spoke with Dr. Davies regarding clarification on prescription and discharge order for Zofran. Instructed to follow the prescription as written. Zofran 8 mg PO TID. Will instruct patient follow as ordered on prescription.
[2019-01-01] MEDS ORDERED: D5NS 1000ml IV ONE (13:59)
--- NOTE | 2019-01-01 14:00 | NUR ---
NURSE NOTES: Discharge instructions and prescription reviewed with patient, verbalized understanding. IV discontinued to right jugular site, no bleeding noted. All belongings, discharge instructions, prescription x1 sent with patient. Patient ambulated downstairs with RN stand by assistance to [employer] service to get her vehicle. Patient stable. Discharged home at 1400.
--- NOTE | 2019-01-02 12:44 | Discharge Summary ---
Discharge Summary Discharge Summary _ DATE OF ADMISSION: 12/31/2018 DATE OF DISCHARGE: 01/01/2019 DISCHARGED BY: Dr. Sachin Davies CONSULTANTS: Dr. Monika Cheney BRIEF HOSPITAL COURSE: Patient is a 33-year-old female, with well-known history of cyclic vomiting syndrome. Patient had been admitted to [facility] several times. She has left in the past AGAINST MEDICAL ADVICE. She continued to complain of nausea and vomiting type cyclic syndrome. She always complains of pain and demands narcotics. Per patient, the only thing that controls her nausea and vomiting are narcotics, specifically opioids either morphine or Dilaudid. On evaluation at ED, blood work did not show any leukocytosis, electrolytes were normal, LFTs normal. Patient was anxious and was vomiting. She was not able to tolerate anything by mouth. She was given multiple rounds of medication without significant improvement. She was then admitted for cyclic vomiting syndrome, evaluation of abdominal pain, dehydration and anxiety. GI was consulted. test was negative. She had both endoscopy and colonoscopy in the past which were both negative. She admits to taking CBD. Her diet was advanced. She was counseled that narcotics has no role in treatment of cyclic nausea and vomiting syndrome and may potentially make vomiting worse. The following day, she was feeling better. Nausea improved. Pain better. She was tolerating diet. She was eventually discharged home. FINAL DIAGNOSES: Cyclic nausea and vomiting syndrome Opioid dependency DISPOSITION: Patient was discharged home. DISCHARGE MEDICATIONS: Refer to Discharge Medication List. DISCHARGE INSTRUCTIONS: Follow-up in a week. I have been assigned to complete a discharge summary on this account, I was not involved with the patient's management. Noelle Ann NP Jan 02, 2019 12:44
== END 2019-01-01 14:00 | disposition home or self-care (01) | DRG 54 ==
LOC: EMR 05:12 → 3E 12:03 → EDBEDREQ 13:29
DX: G43.A0 Cyclical vomiting, in migraine, not intractable (principal); F11.20 Opioid dependence, uncomplicated; Z88.2 Allergy status to sulfonamides; E86.0 Dehydration; F12.90 Cannabis use, unspecified, uncomplicated
CPT/HCPCS: 36415; 80048; 81003; 81025; 85025; 96361; 96365; 96372; 96375; 96376; 99285; J2405; J2765

== ENCOUNTER 2019-01-24 07:54 | Emergency (ER) | payer MEDICAID ==
[~2019-01-24] VITALS: Ht 172.7 cm; Wt 63.5 kg
--- NOTE | 2019-01-24 07:59 | Emergency Room Report ---
History of Present Illness General Chief Complaint: abdominal pain Source: Patient Present Illness HPI Patient is a 33-year-old female presented after increased vomiting. Patient had prior history of marijuana induced cyclic vomiting. She reports of increased abdominal discomfort. Patient had multiple prior ER visits for similar symptoms in the past and previously been told to discontinue marijuana use.Patient reports smoking CBD through pen. Patient states that she had been having vomiting since last night. Patient denies any severe abdominal pain. She reports having Depo-Provera injections. Allergies: Coded Allergies: SULFA (SULFONAMIDE ANTIBIOTICS) (Verified Allergy, Unknown, 02/23/11) Patient History Past Medical History: see triage record Reviewed Nursing Documentation: PMH: Agreed; PSxH: Agreed Nursing Documentation-PMH Hx Cardiac Problems: No Hx Hypertension: No Hx Pacemaker: No Hx Asthma: Yes Hx COPD: No Hx Diabetes: No Hx Cancer: No Hx Gastrointestinal Problems: Yes - cyclical vomiting Hx Dialysis: No Hx Neurological Problems: No Hx Cerebrovascular Accident: No Hx Transient Ischemic Attacks: No Hx Dementia: No Hx Alzheimer's Disease: No Hx Parkinson's Disease: No Hx Meningitis: No Hx Encephalitis: No Hx Seizures: No Hx Epilepsy: No Hx Multiple Sclerosis: No Hx Cerebral Palsy: No Hx Amyotrophic Lat Sclerosis: No Hx Guillian-[place] Syndrome: No Hx Paralysis: No Hx Peripheral Neuropathy: No Hx Spinal Cord Injury: No Hx Head Trauma: No Hx Traumatic Brain Injury: No Hx Memory Loss: No Hx Concentration Difficulty: No Hx Speech Problem: No Hx Tremors: No Hx Vertigo: No Hx Dizziness: No Hx Syncope: No Hx Headaches: No Hx Aphasia: No Hx Dysphasia: No Hx Numbness: No Hx Weakness: No Hx Fatigue: No Hx Neurologic Surgery: No Hx Brain Shunt: No Review of Systems All Other Systems: negative except mentioned in HPI Physical Exam Sp02 EP Interpretation: reviewed, normal General Appearance: alert, GCS 15, mild distress Head: atraumatic ENT: normal ENT inspection, hearing grossly normal, normal voice Neck: normal inspection, full range of motion, supple, no bony tend Respiratory: normal inspection, lungs clear, normal breath sounds, no respiratory distress, no retraction, no wheezing Cardiovascular #1: regular rate, rhythm, no edema Gastrointestinal: normal inspection, normal bowel sounds, non tender, soft, no guarding, no hernia Genitourinary: no CVA tenderness Musculoskeletal: normal inspection, back normal, normal range of motion Neurologic: normal inspection, alert, oriented x3, responsive, nuclear pharmacist III-XII nml as tested, speech normal Psychiatric: normal inspection, judgement/insight normal, mood/affect normal, anxious Skin: normal inspection, normal color, no rash Medical Decision Making Diagnostic Impression: Primary Impression: Abdominal pain Additional Impressions: Cyclic vomiting syndrome Anxiety ER Course Patient presented for vomiting. Differential diagnosis include was not limited to cyclic vomiting syndrome, marijuana hyperemesis, dehydration, bowel obstruction, -induced hyperemesis among others. Because of complexity of patient's case laboratory testing and imaging studies were ordered. Laboratory testing was unremarkable. Patient was noted to have normal bicarb and does not appear to be significant hydrated. Patient was noted to be on Depo -Provera injection. Patient had multiple visits for similar symptoms in the past. Patient was given medications for anxiety as well as Haldol for likely cannabis induced hyperemesis. Patient medications. Patient stated that she had run out of her Ativan and was given prescription for short course of Ativan. She was advised to follow-up with primary care physician for further medications if needed. The patient is advised to follow up with primary care doctor in 1-2 days. Patient is advised to return if any worsening condition or if any changes in status that are concerning. This report is dictated with [employer] family services manager software which may occasionally lead to discrepancies related to use of this software. Labs Test 01/24/19 08:08 01/24/19 09:00 White Blood Count 8.3 K/UL (4.8-10.8) Red Blood Count 4.75 M/UL (4.20-5.40) Hemoglobin 14.0 G/DL (12.0-16.0) Hematocrit 41.6 % (37.0-47.0) Mean Corpuscular Volume 88 FL (80-99) Mean Corpuscular Hemoglobin 29.5 PG (27.0-31.0) Mean Corpuscular Hemoglobin Concent 33.6 G/DL (32.0-36.0) Red Cell Distribution Width 11.8 % (11.6-14.8) Platelet Count 238 K/UL (150-450) Mean Platelet Volume 6.5 FL (6.5-10.1) Neutrophils (%) (Auto) 51.9 % (45.0-75.0) Lymphocytes (%) (Auto) 39.7 % (20.0-45.0) Monocytes (%) (Auto) 6.1 % (1.0-10.0) Eosinophils (%) (Auto) 0.9 % (0.0-3.0) Basophils (%) (Auto) 1.4 % (0.0-2.0) Sodium Level 140 MMOL/L (136-145) Potassium Level 3.9 MMOL/L (3.5-5.1) Chloride Level 106 MMOL/L (98-107) Carbon Dioxide Level 22 MMOL/L (21-32) Anion Gap 12 mmol/L (5-15) Blood Urea Nitrogen 10 mg/dL (7-18) Creatinine 1.0 MG/DL (0.55-1.30) Estimat Glomerular Filtration Rate > 60 mL/min (>60) Glucose Level 134 MG/DL (74-106) Calcium Level 10.1 MG/DL (8.5-10.1) Total Bilirubin 0.7 MG/DL (0.2-1.0) Aspartate Amino Transf (AST/SGOT) 17 U/L (15-37) Alanine Aminotransferase (ALT/SGPT) 24 U/L (12-78) Alkaline Phosphatase 61 U/L (46-116) Total Protein 7.9 G/DL (6.4-8.2) Albumin 4.6 G/DL (3.4-5.0) Globulin 3.3 g/dL Albumin/Globulin Ratio 1.4 (1.0-2.7) Lipase 120 U/L (73-393) Urine Color Yellow Urine Appearance Clear Urine pH 6 (4.5-8.0) Urine Specific [place] 1.020 (1.005-1.035) Urine Protein 1+ (NEGATIVE) Urine Glucose (UA) 4+ (NEGATIVE) Urine Ketones 2+ (NEGATIVE) Urine Blood Negative (NEGATIVE) Urine Nitrite Negative (NEGATIVE) Urine Bilirubin Negative (NEGATIVE) Urine Urobilinogen Normal MG/DL (0.0-1.0) Urine Leukocyte Esterase 1+ (NEGATIVE) Urine RBC 0 /HPF (0 - 2) Urine WBC 0-2 /HPF (0 - 2) Urine Squamous Epithelial Cells Few /LPF (NONE/OCC) Urine Bacteria Few /HPF (NONE) Urine Mucus Many /LPF (NONE/OCC) Urine HCG, Qualitative Negative (NEGATIVE) Status: improved Disposition: HOME, SELF-CARE Condition: Stable Scripts Lorazepam* (ATIVAN*) 1 Mg Tablet 1 MG ORAL THREE TIMES A DAY, #4 TAB Prov: Sj Hill MD 01/24/19 Capsaicin (CAPSAICIN) 60 Gm Cream..g. 60 GM TP DAILY, #60 GM Prov: Sj Hill MD 01/24/19 Ondansetron Odt* (ZOFRAN ODT*) 8 Mg Tab.rapdis 8 MG ORAL Q6H PRN for Nausea & Vomiting, #30 TAB Prov: Sj Hill MD 01/24/19 Sj Hill MD Jan 24, 2019 07:59
[2019-01-24 08:00] VITALS: BP 157/99
[2019-01-24] MEDS ORDERED: D5NS 1,000 ML IV ONE (08:00)
[2019-01-24] MEDS ORDERED: Haloperidol Lactate 5 MG in D5W 55 ML IVPB ONE (08:00)
[2019-01-24 08:43] LABS: BASOPHILS % (AUTO) 1.4 % (0.0-2.0); EOSINOPHILS % (AUTO) 0.9 % (0.0-3.0); HEMATOCRIT 41.6 % (37.0-47.0); LYMPHOCYTES % (AUTO) 39.7 % (20.0-45.0); MEAN CORPUSCULAR VOLUME 88 FL (80-99); MONOCYTES % (AUTO) 6.1 % (1.0-10.0); NEUTROPHILS % (AUTO) 51.9 % (45.0-75.0); PLATELET COUNT 238 K/UL (150-450); RED BLOOD COUNT 4.75 M/UL (4.20-5.40); RED CELL DISTRIBUTION WIDTH 11.8 % (11.6-14.8); WHITE BLOOD COUNT 8.3 K/UL (4.8-10.8)
[2019-01-24 08:53] LABS: ANION GAP 12 mmol/L (5-15); BLOOD UREA NITROGEN 10 mg/dL (7-18); CALCIUM 10.1 MG/DL (8.5-10.1); CARBON DIOXIDE 22 MMOL/L (21-32); CHLORIDE 106 MMOL/L (98-107); POTASSIUM 3.9 MMOL/L (3.5-5.1); SODIUM 140 MMOL/L (136-145)
[2019-01-24 08:58] LABS: ALANINE AMINOTRANSFERASE 24 U/L (12-78); ALBUMIN 4.6 G/DL (3.4-5.0); ALBUMIN/GLOBULIN RATIO 1.4 (1.0-2.7); ALKALINE PHOSPHATASE 61 U/L (46-116); ASPARTATE AMINO TRANSFERASE 17 U/L (15-37); BILIRUBIN,TOTAL 0.7 MG/DL (0.2-1.0)
[2019-01-24 09:22] LABS: APPEARANCE,URINE CLEAR; BILIRUBIN, URINE NEGATIVE (NEGATIVE); GLUCOSE, URINE (UA) 4+ (NEGATIVE); KETONES,URINE 2+ (NEGATIVE); LEUKOCYTE ESTERASE ,URINE 1+ (NEGATIVE); NITRITE,URINE NEGATIVE (NEGATIVE); PH,URINE 6 (4.5-8.0); PROTEIN,URINE 1+ (NEGATIVE); UROBILINOGEN,URINE NORMAL MG/DL (0.0-1.0)
[2019-01-24 09:24] LABS: COLOR,URINE YELLOW
[2019-01-24 10:00] VITALS: BP 148/58
[2019-01-24] MEDS ORDERED: Metoclopramide 10mg/2ml Inj IVP ONE (10:45)
[2019-01-24 12:00] VITALS: BP 152/71
[2019-01-24] MEDS ORDERED: ZOFRAN ODT8 MG ORAL (13:00)
[2019-01-24] MEDS ORDERED: CAPSAICIN60 GM TP (13:00)
[2019-01-24] MEDS ORDERED: ATIVAN1 MG ORAL (13:03)
[2019-01-24 13:05] VITALS: BP 134/68
== END 2019-01-24 13:12 | disposition home or self-care (01) ==
LOC: EMR 08:05
DX: R10.9 Unspecified abdominal pain (principal); G43.A0 Cyclical vomiting, in migraine, not intractable; F41.9 Anxiety disorder, unspecified; Z88.2 Allergy status to sulfonamides; J45.909 Unspecified asthma, uncomplicated
CPT/HCPCS: 36415; 80053; 81003; 81025; 83690; 85025; 96365; 96375; 96376; 99284; J1630; J2405; J2765; S0028

== ENCOUNTER 2019-01-26 08:24 | Emergency (ER) | payer MEDICAID ==
[~2019-01-26] VITALS: Ht 172.7 cm; Wt 61.2 kg
[~2019-01-26 08:24] MED LIST changes: +CAPSAICIN60 GM TP
[2019-01-26] MEDS ORDERED: NKM (08:33)
--- NOTE | 2019-01-26 08:35 | NUR ---
ED Nurse Note: A/OX4. AMBULATED IN TO ER FROM HOME DUE TO VOMITING X3DAYS. PT STATES THAT SHE COULD NOT EAT OR DRINK DUE TO VOMITING SO CANNOT PROVIDE URINE SAMPLE. PT IS CRYING AND PLACING HER FINGER INTO MOUTH TO VOMIT.
[2019-01-26 08:42] VITALS: BP 119/99
[2019-01-26] MEDS ORDERED: DiphenhydrAMINE 50mg/ml Inj IVP ONE (09:15)
[2019-01-26] MEDS ORDERED: Metoclopramide 10mg/2ml Inj IVP ONE (09:15)
[2019-01-26] MEDS ORDERED: LORazepam Inj 2mg/ml 1ml IV ONE (09:15)
--- NOTE | 2019-01-26 10:15 | Emergency Room Report ---
History of Present Illness General Chief Complaint: Vomiting Source: Patient, Medical Record Present Illness HPI Patient presents with complaints of nausea vomiting Reports that she had taken some CBD oil to help with her nausea and feels that it might have had marijuana which has flared up her Cyclical vomiting in the past Denies any chest pain She does complain of diffuse body ache Denies any focal weakness denies any diarrhea Allergies: Coded Allergies: SULFA (SULFONAMIDE ANTIBIOTICS) (Verified Allergy, Unknown, 02/23/11) Patient History Past Medical History: see triage record Pertinent Family History: none Last Menstrual Period: 01/02/19 Reviewed Nursing Documentation: PMH: Agreed; PSxH: Agreed Nursing Documentation-PMH Past Medical History: No History, Except For Hx Cardiac Problems: No Hx Hypertension: No Hx Pacemaker: No Hx Asthma: Yes Hx COPD: No Hx Diabetes: No Hx Cancer: No Hx Gastrointestinal Problems: Yes - cyclical vomiting Hx Dialysis: No Hx Neurological Problems: No Hx Cerebrovascular Accident: No Hx Transient Ischemic Attacks: No Hx Dementia: No Hx Alzheimer's Disease: No Hx Parkinson's Disease: No Hx Meningitis: No Hx Encephalitis: No Hx Seizures: No Hx Epilepsy: No Hx Multiple Sclerosis: No Hx Cerebral Palsy: No Hx Amyotrophic Lat Sclerosis: No Hx Guillian-[place] Syndrome: No Hx Paralysis: No Hx Peripheral Neuropathy: No Hx Spinal Cord Injury: No Hx Head Trauma: No Hx Traumatic Brain Injury: No Hx Memory Loss: No Hx Concentration Difficulty: No Hx Speech Problem: No Hx Tremors: No Hx Vertigo: No Hx Dizziness: No Hx Syncope: No Hx Headaches: No Hx Aphasia: No Hx Dysphasia: No Hx Numbness: No Hx Weakness: No Hx Fatigue: No Hx Neurologic Surgery: No Hx Brain Shunt: No Review of Systems All Other Systems: negative except mentioned in HPI Physical Exam Vital Signs Date Time Temp Pulse Resp B/P (MAP) Pulse Ox O2 Delivery O2 Flow Rate FiO2 01/26/19 08:30 98.1 122 18 152/97 97 Room Air Sp02 EP Interpretation: reviewed, normal General Appearance: mild distress - Patient tearful, moaning in nausea Head: normocephalic, atraumatic Eyes: bilateral eye PERRL, bilateral eye EOMI ENT: hearing grossly normal, normal pharynx, TMs + canals normal, uvula midline Neck: full range of motion, supple, no meningismus, no bony tend Respiratory: lungs clear, normal breath sounds, no rhonchi, no respiratory distress, no retraction, no accessory muscle use Cardiovascular #1: normal peripheral pulses, regular rate, rhythm, no edema, no gallop, no JVD, no murmur Gastrointestinal: normal bowel sounds, non tender, soft, no mass, no organomegaly, non-distended, no guarding, no hernia, no pulsatile mass, no rebound Genitourinary: no CVA tenderness Musculoskeletal: normal inspection Neurologic: oriented x3, responsive, population health coach III-XII nml as tested, motor strength/ tone normal, sensory intact Psychiatric: other - Somewhat histrionic Skin: normal color, no rash, warm/dry, palpation normal Lymphatic: normal inspection, no adenopathy Medical Decision Making Diagnostic Impression: Primary Impression: Vomiting ER Course With the patient's history and examination, multiple differentials considered, including but not limited to , ectopic , ovarian torsion, gastritis, cholecystitis, pancreatitis, appendicitis Patient has had recent extensive blood work and therefore this was not repeated However patient treated in the emergency room with IV hydration and medications patient has done significantly better Patient was discussed at length regarding the need for appropriate outpatient follow-up Last Vital Signs Date Time Temp Pulse Resp B/P (MAP) Pulse Ox O2 Delivery O2 Flow Rate FiO2 01/26/19 08:42 98.1 119 20 119/99 100 Room Air Status: improved Disposition: HOME, SELF-CARE Condition: Improved Referrals: Kenneth Watkins MD (PCP) Additional Instructions: Patient is provided with the discharge instructions notified to follow up with primary doctor in the next 2-3 days otherwise return to the er with any worsening symptoms. Please note that this report is being documented using [employer] technology. This can lead to erroneous entry secondary to incorrect interpretation by the dictating instrument. Haresh Harrison DO Jan 26, 2019 10:15
[2019-01-26 10:47] VITALS: BP 116/77
--- NOTE | 2019-01-26 10:47 | NUR ---
ED Nurse Note: Pt is sleeping in gurney, no s/s of distress nor pain at this time.
[2019-01-26 11:21] VITALS: BP 131/88
--- NOTE | 2019-01-26 11:23 | NUR ---
ED Nurse Note: A/OX4. PT IS CLEARED BY DR. Krys MCCLOUD INSTRUCTION AND PRESCRIPTION GIVEN, PT VERBALIZED UNDERSTANDING. IV/ID WRIST BAND REMOVED. DENIES PAIN AT THIS TIME. ALL BELONGINGS TAKEN BY PT. PT AMBULATED OUT OF ER WITH STEADY GAIT. PT WAS INFORMED NOT TO DRIVE. PT STATES THAT SHE IS GOING HOME WITH opinions[employer]. PT CALLED [facility] SHE WAS WALKING OUT OF ER. NO S/S OF IDSTRESS.
== END 2019-01-26 11:24 | disposition home or self-care (01) ==
LOC: EMR 09:15
DX: R11.2 Nausea with vomiting, unspecified (principal); J45.909 Unspecified asthma, uncomplicated; Z88.2 Allergy status to sulfonamides
CPT/HCPCS: 96361; 96374; 96375; 99284; J1200; J2765

== ENCOUNTER 2019-01-27 07:39 | Emergency (ER) | payer MEDICAID ==
[~2019-01-27] VITALS: Ht 172.7 cm; Wt 59.0 kg
[~2019-01-27 07:39] MED LIST changes: +NKM
[2019-01-27 07:51] VITALS: BP 155/99
--- NOTE | 2019-01-27 07:54 | NUR ---
ED Nurse Note: pt walked in to ED due to cont. vomiting aw abdominal pain for couple days. pt seen by [facility] ERMD multiple times for same sx. pt denies any drug or alcohol used. AAO x4. respirations even and non-labored noted. skin intact. no open wound noted. will wait for the further order.
[2019-01-27 08:04] VITALS: BP 155/99
--- NOTE | 2019-01-27 08:05 | NUR ---
ER DISCHARGE NOTE: Patient is cleared to be discharged per ERMD, pt refused to signed. pt is aox4, on room air, with stable vital signs. pt was given dc instructions, pt was able to verbalize understanding, pt id band removed without complications. pt is able to ambulate with steady gait. pt took all belongings.
--- NOTE | 2019-01-27 08:19 | Emergency Room Report ---
History of Present Illness General Chief Complaint: Vomiting Source: Patient, Medical Record Present Illness HPI Patient presents with complaints of nausea vomiting Patient was seen here by myself yesterday had fairly extensive intervention including IV hydration and nausea medicine History of present illness is somewhat limited, as the patient was seen essentially in the hallway going to the restroom Ambulated with steady gait There is no active signs of vomiting Allergies: Coded Allergies: SULFA (SULFONAMIDE ANTIBIOTICS) (Verified Allergy, Unknown, 02/23/11) Patient History Past Medical History: see triage record Pertinent Family History: none Last Menstrual Period: 3 weeks ago Reviewed Nursing Documentation: PMH: Agreed; PSxH: Agreed Nursing Documentation-PMH Past Medical History: No History, Except For Hx Cardiac Problems: No Hx Hypertension: No Hx Pacemaker: No Hx Asthma: Yes Hx COPD: No Hx Diabetes: No Hx Cancer: No Hx Gastrointestinal Problems: Yes - cyclic vomiting syndrome Hx Dialysis: No Hx Neurological Problems: No Hx Cerebrovascular Accident: No Hx Transient Ischemic Attacks: No Hx Dementia: No Hx Alzheimer's Disease: No Hx Parkinson's Disease: No Hx Meningitis: No Hx Encephalitis: No Hx Seizures: No Hx Epilepsy: No Hx Multiple Sclerosis: No Hx Cerebral Palsy: No Hx Amyotrophic Lat Sclerosis: No Hx Guillian-[place] Syndrome: No Hx Paralysis: No Hx Peripheral Neuropathy: No Hx Spinal Cord Injury: No Hx Head Trauma: No Hx Traumatic Brain Injury: No Hx Memory Loss: No Hx Concentration Difficulty: No Hx Speech Problem: No Hx Tremors: No Hx Vertigo: No Hx Dizziness: No Hx Syncope: No Hx Headaches: No Hx Aphasia: No Hx Dysphasia: No Hx Numbness: No Hx Weakness: No Hx Fatigue: No Hx Neurologic Surgery: No Hx Brain Shunt: No Review of Systems All Other Systems: negative except mentioned in HPI Physical Exam Vital Signs Date Time Temp Pulse Resp B/P (MAP) Pulse Ox O2 Delivery O2 Flow Rate FiO2 01/27/19 07:45 97.5 99 16 155/99 98 Room Air Sp02 EP Interpretation: reviewed, normal General Appearance: no apparent distress Head: normocephalic, atraumatic Respiratory: no respiratory distress, no retraction, no accessory muscle use Musculoskeletal: normal inspection - Ambulating without focal deficit Neurologic: alert, oriented x3 Medical Decision Making Diagnostic Impression: Primary Impression: Vomiting ER Course Please note that this is a very limited evaluation Upon going to discuss with the patient further, patient had left prior to further discussion Patient's presentations and demeanor are extremely concerning Patient had a medical screening evaluation with appropriate vital signs Steady gait without active signs of vomiting Given the patient's recent extensive workup and recent intervention Patient requires further appropriate outpatient evaluation by gastroenterology However left prior to a final discussion Last Vital Signs Date Time Temp Pulse Resp B/P (MAP) Pulse Ox O2 Delivery O2 Flow Rate FiO2 01/27/19 08:04 97.5 99 16 155/99 98 Room Air Status: unchanged Disposition: HOME, SELF-CARE Condition: Stable Referrals: NON PHYSICIAN (PCP) [facility] Patient Instructions: Nausea and Vomiting, Adult Additional Instructions: Patient is provided with the discharge instructions notified to follow up with primary doctor in the next 2-3 days. Please note that this report is being documented using [employer] technology. This can lead to erroneous entry secondary to incorrect interpretation by the dictating instrument. Haresh Harrison DO Jan 27, 2019 08:19
== END 2019-01-27 08:10 | disposition home or self-care (01) ==
LOC: EMR 07:56
DX: R11.2 Nausea with vomiting, unspecified (principal); J45.909 Unspecified asthma, uncomplicated
CPT/HCPCS: 99281

== ENCOUNTER 2019-01-30 00:53 | Emergency (ER) | payer MEDICAID ==
[~2019-01-30] VITALS: Ht 172.7 cm; Wt 61.2 kg
[2019-01-30] MEDS ORDERED: Promethazine HCl 25 MG in NS 55 ML IVPB ONE (01:15)
[2019-01-30] MEDS ORDERED: Haloperidol Lactate 5 MG in D5W 55 ML IVPB ONE (01:15)
--- NOTE | 2019-01-30 01:15 | NUR ---
ED Nurse Note: RECIEVED PT ON GURNEY FROM HOME, HERE WITH C/O ABDOMINAL PAIN AND NAUSEA AND VOMITING, PT WAS JUST RELEASED FROM [facility] THIS PM BUT STATES SHE STILL FEELS BAD WITH PAIN AND EMESIS, PT IS AMBULATORY, NO CP, NO SOB, PT IS CRYING AND ASKING FOR PAIN MEDS, PT GOWNED AND PLACED ON CARDIAC MONITORING.
--- NOTE | 2019-01-30 01:18 | Emergency Room Report ---
History of Present Illness General Chief Complaint: Vomiting Source: Patient, Medical Record Present Illness HPI This is a 33-year-old female history of cyclic vomiting syndrome. She presents with chief complaint of nausea vomiting and abdominal pain. This is a chronic problem. She has been here several times this month for this already. She was just at [facility] for 2 days for the same thing. Unable to keep anything down since she got discharged from [facility]. No blood in her vomitus. No diarrhea. She said her potassium was low blood she was at [place]. Denies any trauma. Similar symptom in the past. Pain is 10 out of 10. Sharp and cramping. Burning in sensation. Allergies: Coded Allergies: SULFA (SULFONAMIDE ANTIBIOTICS) (Verified Allergy, Unknown, 02/23/11) Patient History Past Medical History: see triage record, old chart reviewed Past Surgical History: other Pertinent Family History: none Social History: Denies: smoking Last Menstrual Period: 01/13/19 Now: No : 0 Para: 0 Immunizations: other Reviewed Nursing Documentation: PMH: Agreed; PSxH: Agreed Nursing Documentation-PMH Past Medical History: No History, Except For Hx Cardiac Problems: No Hx Hypertension: No Hx Pacemaker: No Hx Asthma: Yes Hx COPD: No Hx Diabetes: No Hx Cancer: No Hx Gastrointestinal Problems: Yes - cyclic vomiting syndrome Hx Dialysis: No Hx Neurological Problems: No Hx Cerebrovascular Accident: No Hx Transient Ischemic Attacks: No Hx Dementia: No Hx Alzheimer's Disease: No Hx Parkinson's Disease: No Hx Meningitis: No Hx Encephalitis: No Hx Seizures: No Hx Epilepsy: No Hx Multiple Sclerosis: No Hx Cerebral Palsy: No Hx Amyotrophic Lat Sclerosis: No Hx Guillian-[place] Syndrome: No Hx Paralysis: No Hx Peripheral Neuropathy: No Hx Spinal Cord Injury: No Hx Head Trauma: No Hx Traumatic Brain Injury: No Hx Memory Loss: No Hx Concentration Difficulty: No Hx Speech Problem: No Hx Tremors: No Hx Vertigo: No Hx Dizziness: No Hx Syncope: No Hx Headaches: No Hx Aphasia: No Hx Dysphasia: No Hx Numbness: No Hx Weakness: No Hx Fatigue: No Hx Neurologic Surgery: No Hx Brain Shunt: No Review of Systems Eye: Denies: eye pain, blurred vision ENT: Denies: ear pain, nose congestion, throat swelling Respiratory: Denies: cough, shortness of breath Cardiovascular: Denies: chest pain, palpitations Gastrointestinal: Reports: abdominal pain, nausea, vomiting; Denies: diarrhea Musculoskeletal: Denies: back pain, joint pain Skin: Denies: rash Neurological: Denies: headache, numbness Endocrine: Denies: increased thirst, increased urine Hematologic/Lymphatic: Denies: easy bruising All Other Systems: negative except mentioned in HPI Physical Exam Vital Signs Date Time Temp Pulse Resp B/P (MAP) Pulse Ox O2 Delivery O2 Flow Rate FiO2 01/30/19 00:56 98.1 125 18 146/100 96 Room Air vitals with tachycardia Sp02 EP Interpretation: reviewed, normal General Appearance: well appearing, no apparent distress, alert Head: normocephalic, atraumatic Eyes: bilateral eye PERRL, bilateral eye EOMI ENT: hearing grossly normal, normal pharynx Neck: full range of motion, supple, no meningismus Respiratory: chest non-tender, lungs clear, normal breath sounds Cardiovascular #1: regular rate, rhythm, no murmur Gastrointestinal: normal bowel sounds, non tender, no mass, no organomegaly, no bruit, non-distended Musculoskeletal: back normal, gait/station normal, normal range of motion Psychiatric: anxious Skin: warm/dry Medical Decision Making Diagnostic Impression: Primary Impression: Cyclic vomiting syndrome Qualified Codes: G43.A0 - Cyclical vomiting, not intractable Additional Impressions: Abdominal pain Qualified Codes: R10.84 - Generalized abdominal pain Anxiety ER Course Is presents with cyclic vomiting syndrome. Vomiting controlled here. I suspect the high component of anxiety contributing to this. Patient better after Ativan. She slept through the night he without issue. She was rehydrated. We'll discharge home. No evidence of any acute abdomen or obstruction. Lab Results Impression labs unremarkable Last Vital Signs Date Time Temp Pulse Resp B/P (MAP) Pulse Ox O2 Delivery O2 Flow Rate FiO2 01/30/19 00:56 98.1 125 18 146/100 96 Room Air Status: improved Disposition: HOME, SELF-CARE Condition: Stable Patient Instructions: Nausea and Vomiting, Adult Additional Instructions: Follow-up with your doctor in 2-3 days. Return if symptom worsen. Advance diet as tolerated. Sam Moore MD Jan 30, 2019 01:18
[2019-01-30 01:35] LABS: APPEARANCE,URINE SLIGHTLY CLOUDY; BILIRUBIN, URINE NEGATIVE (NEGATIVE); EOSINOPHILS % (AUTO) 0.3 % (0.0-3.0); GLUCOSE, URINE (UA) NEGATIVE (NEGATIVE); HEMATOCRIT 43.4 % (37.0-47.0); KETONES,URINE 2+ (NEGATIVE); LEUKOCYTE ESTERASE ,URINE 1+ (NEGATIVE); LYMPHOCYTES % (AUTO) 30.5 % (20.0-45.0); MEAN CORPUSCULAR VOLUME 85 FL (80-99); MONOCYTES % (AUTO) 5.5 % (1.0-10.0); NEUTROPHILS % (AUTO) 62.7 % (45.0-75.0); NITRITE,URINE NEGATIVE (NEGATIVE); PH,URINE 6 (4.5-8.0); PLATELET COUNT 311 K/UL (150-450); PROTEIN,URINE 2+ (NEGATIVE); RED BLOOD COUNT 5.09 M/UL (4.20-5.40); RED CELL DISTRIBUTION WIDTH 11.1 % (11.6-14.8); UROBILINOGEN,URINE 4 MG/DL (0.0-1.0); WHITE BLOOD COUNT 13.9 K/UL (4.8-10.8)
[2019-01-30 01:45] LABS: ANION GAP 13 mmol/L (5-15); BLOOD UREA NITROGEN 12 mg/dL (7-18); CALCIUM 9.9 MG/DL (8.5-10.1); CARBON DIOXIDE 22 MMOL/L (21-32); CHLORIDE 101 MMOL/L (98-107); CREATININE 0.9 MG/DL (0.55-1.30); POTASSIUM 3.5 MMOL/L (3.5-5.1); SODIUM 136 MMOL/L (136-145)
[2019-01-30] MEDS ORDERED: LORazepam Inj 2mg/ml 1ml IV ONE (01:45)
[2019-01-30 01:51] LABS: ALANINE AMINOTRANSFERASE 25 U/L (12-78); ALBUMIN 4.5 G/DL (3.4-5.0); ALBUMIN/GLOBULIN RATIO 1.3 (1.0-2.7); ALKALINE PHOSPHATASE 67 U/L (46-116); ASPARTATE AMINO TRANSFERASE 12 U/L (15-37); BILIRUBIN,TOTAL 0.8 MG/DL (0.2-1.0)
[2019-01-30 01:58] LABS: COLOR,URINE YELLOW
[2019-01-30] MEDS ORDERED: Pantoprazole Inj IVP ONE (02:00)
[2019-01-30 03:30] VITALS: BP 120/81
--- NOTE | 2019-01-30 03:30 | NUR ---
ED Nurse Note: RETURNED FROM BREAK, PT RESTING QUIETLY, SLEEPING, AROUSES EASILY TO VERBAL STIMULI, REMAINS ON CARDIAC MONITORING, V/S STABLE, IV SITE PATENT, FLUIDS GIVEN ORDERED, WILL CONTINUE TO CLOSELY MONITOR AND RESUME CARE ORDERED.
[2019-01-30 05:00] VITALS: BP 136/83
[2019-01-30 06:10] VITALS: BP 126/78
[2019-01-30 06:34] VITALS: BP 136/83
== END 2019-01-30 06:35 | disposition home or self-care (01) ==
LOC: EMR 01:30
DX: G43.A0 Cyclical vomiting, in migraine, not intractable (principal); Z88.2 Allergy status to sulfonamides; J45.909 Unspecified asthma, uncomplicated; R10.9 Unspecified abdominal pain; F41.9 Anxiety disorder, unspecified
CPT/HCPCS: 36415; 80053; 81003; 81025; 83690; 85025; 87086; 96361; 96365; 96375; 99284; C9113; J1630; J2550

== ENCOUNTER 2019-02-22 13:25 | Emergency (ER) | payer MEDICAID ==
[~2019-02-22] VITALS: Ht 172.7 cm; Wt 59.0 kg
[2019-02-22 13:41] VITALS: BP 155/89
--- NOTE | 2019-02-22 13:41 | NUR ---
ED Nurse Note: Pt from home came in due to abd pain with vomiting since 0800. Pt has hx of cyclical vomiting. Pt is AAO x4, ambulatory with unlabored breathing. VSS.
[2019-02-22 14:00] VITALS: BP 122/85
--- NOTE | 2019-02-22 14:00 | NUR ---
ED Nurse Note: Dr Harrison spoken to pt to get another medical opinion. Pt has been here multiple times for the same symptom (cyclical vomiting). Pt is AAO x4, ambulatory. No ID band/IV access.
--- NOTE | 2019-02-22 17:23 | Emergency Room Report ---
History of Present Illness General Chief Complaint: Vomiting Source: Patient Present Illness HPI Patient presents with reports of vomiting Reports that she did for medications at home however was unable to keep them down Upon initial evaluation patient is tearful and appears uncomfortable Denies any chest pain denies any abdominal pain denies any diarrhea Denies any fevers Denies any recent travel or trauma Allergies: Coded Allergies: SULFA (SULFONAMIDE ANTIBIOTICS) (Verified Allergy, Unknown, 02/23/11) Patient History Past Medical History: see triage record Pertinent Family History: none Reviewed Nursing Documentation: PMH: Agreed; PSxH: Agreed Nursing Documentation-PMH Hx Cardiac Problems: No Hx Hypertension: No Hx Pacemaker: No Hx Asthma: Yes Hx COPD: No Hx Diabetes: No Hx Cancer: No Hx Gastrointestinal Problems: Yes - cyclic vomiting syndrome Hx Dialysis: No Hx Neurological Problems: No Hx Cerebrovascular Accident: No Hx Transient Ischemic Attacks: No Hx Dementia: No Hx Alzheimer's Disease: No Hx Parkinson's Disease: No Hx Meningitis: No Hx Encephalitis: No Hx Seizures: No Hx Epilepsy: No Hx Multiple Sclerosis: No Hx Cerebral Palsy: No Hx Amyotrophic Lat Sclerosis: No Hx Guillian-[place] Syndrome: No Hx Paralysis: No Hx Peripheral Neuropathy: No Hx Spinal Cord Injury: No Hx Head Trauma: No Hx Traumatic Brain Injury: No Hx Memory Loss: No Hx Concentration Difficulty: No Hx Speech Problem: No Hx Tremors: No Hx Vertigo: No Hx Dizziness: No Hx Syncope: No Hx Headaches: No Hx Aphasia: No Hx Dysphasia: No Hx Numbness: No Hx Weakness: No Hx Fatigue: No Hx Neurologic Surgery: No Hx Brain Shunt: No Review of Systems All Other Systems: negative except mentioned in HPI Physical Exam Vital Signs Date Time Temp Pulse Resp B/P (MAP) Pulse Ox O2 Delivery O2 Flow Rate FiO2 02/22/19 13:41 97.9 19 155/89 100 Room Air 02/22/19 13:41 90 Sp02 EP Interpretation: reviewed, normal General Appearance: mild distress - Uncomfortable Head: normocephalic, atraumatic Eyes: bilateral eye PERRL ENT: normal pharynx, no angioedema Neck: supple, thyroid normal Respiratory: lungs clear, no retraction, no accessory muscle use Cardiovascular #1: regular rate, rhythm Gastrointestinal: non tender, soft Musculoskeletal: normal inspection Neurologic: alert, oriented x3 Skin: normal color, no rash Lymphatic: no adenopathy Medical Decision Making Diagnostic Impression: Primary Impression: Vomiting ER Course Patient otherwise has a benign medical evaluation remains hemodynamically stable abdomen is soft and benign Patient has had multiple visits with concerning presentations requiring significant intervention With today's presentation patient appears well-hydrated after discussing that the patient does not meet criteria for further emergency workup Patient stops crying, and starts cursing at the staff And was able to ambulate without any deficits Patient's change in behavior and demeanor is concerning And is again recommended to have appropriate close outpatient follow-up Last Vital Signs Date Time Temp Pulse Resp B/P (MAP) Pulse Ox O2 Delivery O2 Flow Rate FiO2 02/22/19 14:00 98.4 78 22 122/85 98 Room Air Status: improved Disposition: HOME, SELF-CARE Condition: Stable Referrals: [facility],REFERRING (PCP) [facility] - Peds ER - Patient Instructions: Nausea and Vomiting, Adult Additional Instructions: Patient is provided with the discharge instructions notified to follow up with primary doctor in the next 2-3 days otherwise return to the er with any worsening symptoms. Please note that this report is being documented using [employer] technology. This can lead to erroneous entry secondary to incorrect interpretation by the dictating instrument. Haresh Harrison DO Feb 22, 2019 17:23
== END 2019-02-22 14:00 | disposition home or self-care (01) ==
LOC: EMR 13:57
DX: R11.10 Vomiting, unspecified (principal); Z88.2 Allergy status to sulfonamides; J45.909 Unspecified asthma, uncomplicated
CPT/HCPCS: 99282

== ENCOUNTER 2019-08-09 19:10 | Emergency (ER) | payer MEDICAID ==
[~2019-08-09] VITALS: Ht 172.7 cm; Wt 61.2 kg
[2019-08-09] MEDS ORDERED: D5NS 1,000 ML IV ONE (19:30)
--- NOTE | 2019-08-09 19:30 | NUR ---
ED Nurse Note: Recieved pt from home, here with c/o abdominal pain with nausea and vomiting, pt is crying, states was released from hospital admisiosn today and can not take meds at home due to vomiting, pt is having emesis of very small, spit like phlem, pt constantly asking for meds during assessment, pt is very restless and appears agitated, pt has severe echymosis and bruising from many iv attempts made, pt refuses urine sample at this time, gowned and placed on monitoring, will resume care as ordered and closely monitor..
--- NOTE | 2019-08-09 19:42 | Emergency Room Report ---
History of Present Illness General Chief Complaint: Abdominal Pain Source: Patient Present Illness HPI Disclaimer: Please note that this report is being documented using [employer] technology. This can lead to erroneous entry secondary to incorrect interpretation by the dictating instrument. HPI: 34-year-old female with history of cyclic vomiting syndrome presents for abdominal pain and vomiting. She states she was discharged from [facility] approximately 2 PM today with similar complaints. States her symptoms were controlled at that time however she went home and unpacked her suitcase after which she began to experience vomiting and nausea as well as diffuse abdominal pain and cramping. Says she was unable to hold down any of her medications. States that the same presentation she has had multiple times in the past. She has multiple emergency department visits here at this hospital with similar presentations appears to be a chronic issue. She was requesting IV fluids and Ativan. States she is no longer smoking marijuana. PMH: Cyclic vomiting syndrome PSH: Denies Allergies: Sulfa medications Social Hx: Former THC use. Allergies: Coded Allergies: SULFA (SULFONAMIDE ANTIBIOTICS) (Verified Allergy, Unknown, 02/23/11) Patient History Last Menstrual Period: month ago Now: No Nursing Documentation-PMH Hx Cardiac Problems: No Hx Hypertension: No Hx Pacemaker: No Hx Asthma: Yes Hx COPD: No Hx Diabetes: No Hx Cancer: No Hx Gastrointestinal Problems: Yes - cyclic vomiting syndrome Hx Dialysis: No Hx Neurological Problems: No Hx Cerebrovascular Accident: No Hx Transient Ischemic Attacks: No Hx Dementia: No Hx Alzheimer's Disease: No Hx Parkinson's Disease: No Hx Meningitis: No Hx Encephalitis: No Hx Seizures: No Hx Epilepsy: No Hx Multiple Sclerosis: No Hx Cerebral Palsy: No Hx Amyotrophic Lat Sclerosis: No Hx Guillian-[place] Syndrome: No Hx Paralysis: No Hx Peripheral Neuropathy: No Hx Spinal Cord Injury: No Hx Head Trauma: No Hx Traumatic Brain Injury: No Hx Memory Loss: No Hx Concentration Difficulty: No Hx Speech Problem: No Hx Tremors: No Hx Vertigo: No Hx Dizziness: No Hx Syncope: No Hx Headaches: No Hx Aphasia: No Hx Dysphasia: No Hx Numbness: No Hx Weakness: No Hx Fatigue: No Hx Neurologic Surgery: No Hx Brain Shunt: No Review of Systems All Other Systems: negative except mentioned in HPI Physical Exam Vital Signs Date Time Temp Pulse Resp B/P (MAP) Pulse Ox O2 Delivery O2 Flow Rate FiO2 08/09/19 19:21 98.4 122 24 99 Room Air General: Awake and alert, tearful, agitated HEENT: NC/AT. EOMI. anicteric sclera. Moist mucous membranes Cardiovascular: Tachycardic. S1 and S2 normal. No murmur appreciated. Capillary refill less than 2 seconds Resp: Tachypnea. No cough, wheezing or crackles appreciated Abdomen: Abdomen is soft, nondistended. Nontender Skin: Intact. No abrasions, laceration or rash over the exposed skin MSK: Normal tone and bulk. Moving all extremities. No obvious deformity. Neuro: Awake and alert. Tearful, crying during my examination. Agitated, flailing arms during exam Medical Decision Making Diagnostic Impression: Primary Impression: Nausea and vomiting in adult patient Additional Impressions: Dehydration Hypokalemia ER Course 34-year-old female history of cyclic vomiting syndrome presents for evaluation of nausea and vomiting. Multiple emergency department visits with similar presentation she states she was released from [facility] approximately 2 PM today symptoms starting shortly thereafter. Will give 1 L IV fluid, check basic labs and give IV Zofran. She is requesting Ativan. She is tearful and emotional. Will monitor in the emergency department. Do not believe she requires emergent imaging at this time as her abdomen is soft and nondistended. Laboratory Tests Test 08/09/19 20:25 08/09/19 20:55 White Blood Count 9.8 K/UL (4.8-10.8) Red Blood Count 4.90 M/UL (4.20-5.40) Hemoglobin 14.9 G/DL (12.0-16.0) Hematocrit 40.5 % (37.0-47.0) Mean Corpuscular Volume 83 FL (80-99) Mean Corpuscular Hemoglobin 30.4 PG (27.0-31.0) Mean Corpuscular Hemoglobin Concent 36.7 G/DL (32.0-36.0) H Red Cell Distribution Width 10.5 % (11.6-14.8) L Platelet Count 296 K/UL (150-450) Mean Platelet Volume 5.3 FL (6.5-10.1) L Neutrophils (%) (Auto) 75.5 % (45.0-75.0) H Lymphocytes (%) (Auto) 17.0 % (20.0-45.0) L Monocytes (%) (Auto) 6.4 % (1.0-10.0) Eosinophils (%) (Auto) 0.1 % (0.0-3.0) Basophils (%) (Auto) 1.1 % (0.0-2.0) Sodium Level 140 MMOL/L (136-145) Potassium Level 3.1 MMOL/L (3.5-5.1) L Chloride Level 102 MMOL/L (98-107) Carbon Dioxide Level 20 MMOL/L (21-32) L Anion Gap 18 mmol/L (5-15) H Blood Urea Nitrogen 6 mg/dL (7-18) L Creatinine 0.8 MG/DL (0.55-1.30) Estimate Glomerular Filtration Rate > 60 mL/min (>60) Glucose Level 103 MG/DL (74-106) Calcium Level 9.6 MG/DL (8.5-10.1) Total Bilirubin 0.7 MG/DL (0.2-1.0) Aspartate Amino Transferase (AST) 17 U/L (15-37) Alanine Aminotransferase (ALT) 19 U/L (12-78) Alkaline Phosphatase 58 U/L (46-116) Total Protein 8.0 G/DL (6.4-8.2) Albumin 4.6 G/DL (3.4-5.0) Globulin 3.4 g/dL Albumin/Globulin Ratio 1.4 (1.0-2.7) Lipase 110 U/L (73-393) Urine Color Pale yellow Urine Appearance Clear Urine pH 5 (4.5-8.0) Urine Specific [place] 1.020 (1.005-1.035) Urine Protein Negative (NEGATIVE) Urine Glucose (UA) 3+ (NEGATIVE) H Urine Ketones 4+ (NEGATIVE) H Urine Blood 2+ (NEGATIVE) H Urine Nitrite Negative (NEGATIVE) Urine Bilirubin Negative (NEGATIVE) Urine Urobilinogen Normal MG/DL (0.0-1.0) Urine Leukocyte Esterase Negative (NEGATIVE) Urine RBC 2-4 /HPF (0 - 2) H Urine WBC 0-2 /HPF (0 - 2) Urine Squamous Epithelial Cells Few /LPF (NONE/OCC) Urine Bacteria Few /HPF (NONE) Urine HCG, Qualitative Negative (NEGATIVE) Reevaluation Time: 21:50 Last Vital Signs Date Time Temp Pulse Resp B/P (MAP) Pulse Ox O2 Delivery O2 Flow Rate FiO2 08/09/19 19:21 98.4 122 24 99 Room Air Reevaluation Impression Labs show hypokalemia with a potassium of 3.2 similar with the patient's prior visits. Slight dehydration with an elevated BUN and low bicarb. She is receiving IV fluids. Tachycardia resolved. Patient is more calm. Patient has not had any further emesis or retching in the emergency department after receiving her second dose of Zofran. She is still complaining of nausea and requesting Reglan. We will give a second IV fluid bolus though the patient remains in some asymptomatic she may be discharged home with potassium supplements. She is instructed to follow-up with her PMD to discuss both her previous hospitalization and today's emergency department visit. He understands and agrees with this treatment plan. Disposition: HOME, SELF-CARE Condition: Improved Scripts Potassium Chloride* (K-DUR*) 20 Meq Tab.er.prt 20 MEQ ORAL DAILY, #5 TAB 0 Refills Prov: Rolando Stokes MD 08/09/19 Rolando Stokes MD Aug 09, 2019 19:42
--- NOTE | 2019-08-09 20:30 | NUR ---
ED Nurse Note: MD completed insertion of EF line to left neck, meds givena nd fluids started, pt has had no emesis since here.
[2019-08-09] MEDS ORDERED: Ketorolac 30mg Inj IV ONE (20:45)
[2019-08-09 20:51] LABS: BASOPHILS % (AUTO) 1.1 % (0.0-2.0); EOSINOPHILS % (AUTO) 0.1 % (0.0-3.0); HEMATOCRIT 40.5 % (37.0-47.0); HEMOGLOBIN 14.9 G/DL (12.0-16.0); MEAN CORPUSCULAR VOLUME 83 FL (80-99); MONOCYTES % (AUTO) 6.4 % (1.0-10.0); NEUTROPHILS % (AUTO) 75.5 % (45.0-75.0); PLATELET COUNT 296 K/UL (150-450); RED CELL DISTRIBUTION WIDTH 10.5 % (11.6-14.8); WHITE BLOOD COUNT 9.8 K/UL (4.8-10.8)
[2019-08-09 20:55] LABS: ANION GAP 18 mmol/L (5-15); BLOOD UREA NITROGEN 6 mg/dL (7-18); CALCIUM 9.6 MG/DL (8.5-10.1); CARBON DIOXIDE 20 MMOL/L (21-32); CHLORIDE 102 MMOL/L (98-107); CREATININE 0.8 MG/DL (0.55-1.30); POTASSIUM 3.1 MMOL/L (3.5-5.1); SODIUM 140 MMOL/L (136-145)
[2019-08-09 20:58] LABS: ALANINE AMINOTRANSFERASE 19 U/L (12-78); ALBUMIN 4.6 G/DL (3.4-5.0); ALBUMIN/GLOBULIN RATIO 1.4 (1.0-2.7); ALKALINE PHOSPHATASE 58 U/L (46-116); ASPARTATE AMINO TRANSFERASE 17 U/L (15-37); BILIRUBIN,TOTAL 0.7 MG/DL (0.2-1.0)
[2019-08-09 21:00] VITALS: BP 144/91
[2019-08-09 21:20] LABS: APPEARANCE,URINE CLEAR; BILIRUBIN, URINE NEGATIVE (NEGATIVE); COLOR,URINE PALE YELLOW; GLUCOSE, URINE (UA) 3+ (NEGATIVE); KETONES,URINE 4+ (NEGATIVE); LEUKOCYTE ESTERASE ,URINE NEGATIVE (NEGATIVE); NITRITE,URINE NEGATIVE (NEGATIVE); PH,URINE 5 (4.5-8.0); PROTEIN,URINE NEGATIVE (NEGATIVE); UROBILINOGEN,URINE NORMAL MG/DL (0.0-1.0)
[2019-08-09] MEDS ORDERED: POTASSIUM CHLO20 ME1 ORAL (21:36)
--- NOTE | 2019-08-09 21:45 | NUR ---
ED Nurse Note: Pt continues to rest in bed, constantly asking for meds of ativan, reglan and pain meds, aware, pt medicated, no emesis, v/s stable, iv fluids infusing, will continue to closely monitor for any emesis or changes.
[2019-08-09] MEDS ORDERED: Metoclopramide 10mg/2ml Inj IVP ONE (22:00)
[2019-08-09] MEDS ORDERED: DiphenhydrAMINE 50mg/ml Inj IVP ONE (22:00)
[2019-08-09 22:45] VITALS: BP 134/83
--- NOTE | 2019-08-10 | NUR ---
ER DISCHARGE NOTE: Patient is cleared to be discharged per ERMD, pt is aox4, on room air, with stable vital signs. pt was given dc and prescription instructions, pt was able to verbalize understanding, pt id band and iv site removed without complications. pt is able to ambulate with steady gait. pt took all belongings.
[2019-08-10 00:20] VITALS: BP 134/83
== END 2019-08-10 00:20 | disposition home or self-care (01) ==
LOC: EMR 20:00
DX: R11.2 Nausea with vomiting, unspecified (principal); Z88.2 Allergy status to sulfonamides; J45.909 Unspecified asthma, uncomplicated; E86.0 Dehydration; E87.6 Hypokalemia; R10.9 Unspecified abdominal pain
CPT/HCPCS: 36415; 80053; 81003; 81025; 83690; 85025; 96361; 96374; 96375; 96376; J1200; J1885; J2405; J2765; Z7502; 99284; J8499

== ENCOUNTER 2020-01-20 12:03 | Emergency (ER) | payer OTHER, MEDICAID ==
[~2020-01-20] VITALS: Ht 172.7 cm; Wt 72.6 kg
[~2020-01-20 12:03] MED LIST changes: +POTASSIUM CHLO20 ME1 ORAL
[2020-01-20 12:39] VITALS: BP 136/105
--- NOTE | 2020-01-20 12:39 | NUR ---
ED Nurse Note: PT CAME IN DUE TO VOMITING X 1 WEEK. PT HX OF CYCLICAL VOMITING.
--- NOTE | 2020-01-20 13:22 | Emergency Room Report ---
History of Present Illness General Chief Complaint: Vomiting Source: Patient Present Illness HPI 34-year-old female presents to the emergency department complaining of 10 out of 10 severity generalized abdominal pain with nausea and vomiting x1 week. Patient reports history of cyclical vomiting syndrome which renders her into the emergency department often. Patient reports only receives relief when she receives 8 mg of Zofran. She denies recent marijuana use. She denies suspicion of . She denies fevers or chills, recent travel or ill contacts with similar symptoms. She reports difficulty keeping down any fluids and states that she feels dehydrated. No other aggravating or relieving factors at this time. He denies sudden onset headache, dizziness, syncope, chest pain, palpitations or shortness of breath. She denies constipation or diarrhea. She denies blood in the vomit or stool. Allergies: Coded Allergies: SULFA (SULFONAMIDE ANTIBIOTICS) (Verified Allergy, Unknown, 02/23/11) Patient History Past Medical History: see triage record Past Surgical History: none Pertinent Family History: none Last Menstrual Period: Now: No Reviewed Nursing Documentation: PMH: Agreed; PSxH: Agreed Nursing Documentation-PMH Past Medical History: No History, Except For Hx Cardiac Problems: No Hx Hypertension: No Hx Pacemaker: No Hx Asthma: Yes Hx COPD: No Hx Diabetes: No Hx Cancer: No Hx Gastrointestinal Problems: Yes - cyclic vomiting syndrome Hx Dialysis: No Hx Neurological Problems: No Hx Cerebrovascular Accident: No Hx Transient Ischemic Attacks: No Hx Dementia: No Hx Alzheimer's Disease: No Hx Parkinson's Disease: No Hx Meningitis: No Hx Encephalitis: No Hx Seizures: No Hx Epilepsy: No Hx Multiple Sclerosis: No Hx Cerebral Palsy: No Hx Amyotrophic Lat Sclerosis: No Hx Guillian-[place] Syndrome: No Hx Paralysis: No Hx Peripheral Neuropathy: No Hx Spinal Cord Injury: No Hx Head Trauma: No Hx Traumatic Brain Injury: No Hx Memory Loss: No Hx Concentration Difficulty: No Hx Speech Problem: No Hx Tremors: No Hx Vertigo: No Hx Dizziness: No Hx Syncope: No Hx Headaches: No Hx Aphasia: No Hx Dysphasia: No Hx Numbness: No Hx Weakness: No Hx Fatigue: No Hx Neurologic Surgery: No Hx Brain Shunt: No Review of Systems All Other Systems: negative except mentioned in HPI Physical Exam Vital Signs Date Time Temp Pulse Resp B/P (MAP) Pulse Ox O2 Delivery O2 Flow Rate FiO2 2/19/20 12:32 97.3 110 20 136/105 (115) 98 Room Air Sp02 EP Interpretation: reviewed, normal General Appearance: no apparent distress, alert, GCS 15, non-toxic Head: normocephalic, atraumatic Eyes: bilateral eye normal inspection, bilateral eye PERRL ENT: hearing grossly normal, normal voice Neck: full range of motion Respiratory: lungs clear, normal breath sounds, speaking full sentences Cardiovascular #1: regular rate, rhythm Gastrointestinal: normal bowel sounds, soft, non-distended, no guarding, tenderness - mild diffuse ttp in all 4 quadrants. Rectal: deferred Genitourinary: normal inspection Musculoskeletal: back normal, normal range of motion, gait/station normal, non- tender Neurologic: alert, motor strength/tone normal, oriented x3, sensory intact, responsive, speech normal Psychiatric: judgement/insight normal Lymphatic: no adenopathy Medical Decision Making PA Attestation Dr. Doherty Is my supervising Physician whom patient management has been discussed with. Diagnostic Impression: Primary Impression: Cannabinoid hyperemesis syndrome Additional Impressions: Cyclical vomiting Hypokalemia Dehydration Cannabis abuse ER Course 34-year-old female presents to the emergency department complaining of 10 out of 10 severity generalized abdominal pain with nausea and vomiting x1 week. Patient reports history of cyclical vomiting syndrome which renders her into the emergency department often. Patient reports only receives relief when she receives 8 mg of Zofran. She denies recent marijuana use. She denies suspicion of . She denies fevers or chills, recent travel or ill contacts with similar symptoms. She reports difficulty keeping down any fluids and states that she feels dehydrated. No other aggravating or relieving factors at this time. He denies sudden onset headache, dizziness, syncope, chest pain, palpitations or shortness of breath. She denies constipation or diarrhea. She denies blood in the vomit or stool. Ddx considered but are not limited to GE, colitis, acute appendicitis, SBO, Cyclical Vomiting secondary to THC, , dehydration, electrolyte imbalance. Vital signs: pt. is afebrile, H&PE are most consistent with GE most likely viral in etiology, no evidence to suggest acute abdomen on physical exam. ORDERS: -BMP: potassium 2.5 -Urine Hcg: negative -UDS: Positive for THC and Benzo's ED INTERVENTIONS: -1000 NS iv hydration x 2 -Zofran 8mg IM -Kcl PO 60 Meq -Ativan 1mg IV -Pepcid IV After above interventions this patient successfully completed oral fluid challenge without nausea or vomiting. will d/c home with oral medications, hydration instructions and to have close outpatient follow up with primary care. Pt. instructed to stop using THC products. Pt. given strict ED return precautions for worsening of symptoms, new symptoms or inability to tolerate oral intake. DISCHARGE: At this time pt. is stable for d/c to home. Will provide printed patient care instructions, and any necessary prescriptions. Care plan and follow up instructions have been discussed with the patient prior to discharge. Labs Test 01/20/20 14:05 01/20/20 16:07 Sodium Level 137 MMOL/L (136-145) Potassium Level 2.5 MMOL/L (3.5-5.1) Chloride Level 95 MMOL/L (98-107) Carbon Dioxide Level 21 MMOL/L (21-32) Anion Gap 20 mmol/L (5-15) Blood Urea Nitrogen 18 mg/dL (7-18) Creatinine 0.9 MG/DL (0.55-1.30) Estimat Glomerular Filtration Rate > 60 mL/min (>60) Glucose Level 99 MG/DL (74-106) Calcium Level 9.7 MG/DL (8.5-10.1) Urine Opiates Screen Negative (NEGATIVE) Urine Barbiturates Screen Negative (NEGATIVE) Phencyclidine (PCP) Screen Negative (NEGATIVE) Urine Amphetamines Screen Negative (NEGATIVE) Urine Benzodiazepines Screen Positive (NEGATIVE) Urine Cocaine Screen Negative (NEGATIVE) Urine Marijuana (THC) Screen Positive (NEGATIVE) Last Vital Signs Date Time Temp Pulse Resp B/P (MAP) Pulse Ox O2 Delivery O2 Flow Rate FiO2 01/20/20 12:39 110 20 Room Air 01/20/20 12:39 97.3 136/105 98 Status: improved Disposition: HOME, SELF-CARE Condition: Stable Scripts Ondansetron Odt* (ZOFRAN ODT*) 8 Mg Tab.rapdis 8 MG ORAL Q6H PRN for Nausea & Vomiting, #10 TAB Prov: Keila Rock 01/20/20 Referrals: [facility] Patient Instructions: Nausea and Vomiting, Adult Additional Instructions: Discontinue use of marijuana as this is causing your cyclical vomiting symptoms. Take medications as directed. Follow up with a Primary Care Provider in 3-5 days, even if your symptoms have resolved. --Please review list of primary care clinics, if you do not already have a primary care provider Return sooner to ED if new symptoms occur, or current symptoms become worse. - Please note that this Emergency Department Report was dictated using [employer] roll maker technology software, occasionally this can lead to erroneous entry secondary to interpretation by the dictation equipment. Keila Rock Jan 20, 2020 13:22
--- NOTE | 2020-01-20 13:30 | NUR ---
ED Nurse Note: PT GIVEN MEDICATION TOLERATING WELL. PT STILL APPEARS IN PAIN. INFORMED ERPA
[2020-01-20] MEDS ORDERED: GI Cocktail 50 ML LIQD ORAL ONE (14:00)
[2020-01-20 14:30] VITALS: BP 139/98
[2020-01-20 14:39] LABS: ANION GAP 20 mmol/L (5-15); BLOOD UREA NITROGEN 18 mg/dL (7-18); CALCIUM 9.7 MG/DL (8.5-10.1); CARBON DIOXIDE 21 MMOL/L (21-32); CHLORIDE 95 MMOL/L (98-107); CREATININE 0.9 MG/DL (0.55-1.30); SODIUM 137 MMOL/L (136-145)
[2020-01-20 14:42] LABS: POTASSIUM 2.5 MMOL/L (3.5-5.1)
[2020-01-20] MEDS ORDERED: Lidocaine 2% Visc 15ml soln ONE (14:50)
[2020-01-20] MEDS ORDERED: Dicyclomine HCl 10mg/5ml oral soln ONE (14:50)
--- NOTE | 2020-01-20 15:15 | NUR ---
ED Nurse Note: IV LINE ESTABLSIHED, PATENT AND INTACT
[2020-01-20] MEDS ORDERED: Ketorolac 30mg Inj ONE (15:59)
[2020-01-20] MEDS ORDERED: Ketorolac 30mg Inj IV ONE (16:00)
[2020-01-20] MEDS ORDERED: LORazepam Inj 2mg/ml 1ml IV ONE (16:00)
--- NOTE | 2020-01-20 16:10 | NUR ---
ED Nurse Note: urine sent to lab
[2020-01-20 16:29] VITALS: BP 127/84
[2020-01-20] MEDS ORDERED: ZOFRAN ODT8 MG ORAL (17:23)
[2020-01-20 18:19] VITALS: BP 135/83
--- NOTE | 2020-01-20 18:20 | NUR ---
ED Nurse Note: Pt asleep in bed, comfortable. NAD noted.
[2020-01-20 18:50] VITALS: BP 133/88
== END 2020-01-20 18:50 | disposition home or self-care (01) ==
LOC: EMR 18:00
DX: F12.188 Cannabis abuse with other cannabis-induced disorder (principal); R11.15 Cyclical vomiting syndrome unrelated to migraine; E87.6 Hypokalemia; E86.0 Dehydration; J45.909 Unspecified asthma, uncomplicated; Z88.2 Allergy status to sulfonamides
CPT/HCPCS: 36415; 80048; 80307; 81025; 96361; 96372; 96374; 96375; 99284; J1885; J2405; J7030; S0028; J8499

== ENCOUNTER 2020-05-26 01:27 | Inpatient (IN) | payer MEDICAID, OTHER ==
[2020-05-26] VITALS (7 sets, daily range): BP systolic 120–158; BP diastolic 75–104
[~2020-05-26] VITALS: Ht 172.7 cm; Wt 70.3 kg
[2020-05-26] MEDS ORDERED: LORazepam Inj 2mg/ml 1ml IV ONE (02:00)
--- NOTE | 2020-05-26 02:01 | Emergency Room Report ---
History of Present Illness General Chief Complaint: Vomiting Source: Patient Present Illness HPI Presents with intractable vomiting and abdominal pain. Abdominal pain is more epigastric burning achy and constant. She has had this problem before when she has had cyclic vomiting related to THC use. She denies any fevers or chills. She denies any diarrhea. She does not have a menstruations because she is on the Depo-Provera shot. She rates the pain 7/10, constant, epigastric nonradiating, burning and aching. She denies vomiting coffee grounds or blood. She is not moved her bowels and denies melena. The pain and vomiting are causing her to feel anxious. The patient was last seen January 20 this year. She was able to be treated in the emergency department with Zofran 8 mg, Pepcid Pepcid and Ativan. She was able to tolerate oral potassium for a potassium of 2.5. She was discharged to home. The patient has been admitted to the hospital in the past for this problem. No sore throat, chest pain, palpitations, dysuria, shortness of breath, joint pain, rashes, depression, visual changes, dizziness, headache. 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 Last Menstrual Period: depo shot Now: No Reviewed Nursing Documentation: PMH: Agreed; PSxH: Agreed Nursing Documentation-PMH Hx Cardiac Problems: No Hx Hypertension: No Hx Pacemaker: No Hx Asthma: Yes Hx COPD: No Hx Diabetes: No Hx Cancer: No Hx Gastrointestinal Problems: Yes - cyclic vomiting syndrome Hx Dialysis: No Hx Neurological Problems: No Hx Cerebrovascular Accident: No Hx Transient Ischemic Attacks: No Hx Dementia: No Hx Alzheimer's Disease: No Hx Parkinson's Disease: No Hx Meningitis: No Hx Encephalitis: No Hx Seizures: No Hx Epilepsy: No Hx Multiple Sclerosis: No Hx Cerebral Palsy: No Hx Amyotrophic Lat Sclerosis: No Hx Guillian-[place] Syndrome: No Hx Paralysis: No Hx Peripheral Neuropathy: No Hx Spinal Cord Injury: No Hx Head Trauma: No Hx Traumatic Brain Injury: No Hx Memory Loss: No Hx Concentration Difficulty: No Hx Speech Problem: No Hx Tremors: No Hx Vertigo: No Hx Dizziness: No Hx Syncope: No Hx Headaches: No Hx Aphasia: No Hx Dysphasia: No Hx Numbness: No Hx Weakness: No Hx Fatigue: No Hx Neurologic Surgery: No Hx Brain Shunt: No Review of Systems All Other Systems: negative except mentioned in HPI Physical Exam Vital Signs Date Time Temp Pulse Resp B/P (MAP) Pulse Ox O2 Delivery O2 Flow Rate FiO2 05/26/20 01:37 98.4 127 18 93 Room Air Sp02 EP Interpretation: reviewed, normal General Appearance: well appearing, GCS 15, mild distress Head: normocephalic Eyes: bilateral eye normal inspection, bilateral eye PERRL, bilateral eye EOMI ENT: moist mucus membranes Neck: supple Respiratory: lungs clear, normal breath sounds Cardiovascular #1: regular rate, rhythm Cardiovascular #2: 2+ radial (R) Gastrointestinal: normal bowel sounds, no mass, non-distended, no guarding, no rebound, tenderness - Epigastric Genitourinary: no CVA tenderness Musculoskeletal: back normal, normal range of motion, gait/station normal Neurologic: alert, oriented x3, grossly normal Psychiatric: anxious Skin: no rash, warm/dry Medical Decision Making Diagnostic Impression: Primary Impression: Intractable cyclical vomiting Additional Impressions: Abdominal pain Qualified Codes: R10.84 - Generalized abdominal pain Cannabis abuse Leukocytosis Qualified Codes: D72.828 - Other elevated white blood cell count ER Course Patient presents with an abdominal pain. Differential includes intractable cyclical vomiting, dehydration, electrolyte imbalance, gastritis, Linda-Hurtado tear, pancreatitis amongst others. Evaluation with labs. Treatment with IV, Pepcid, Zofran and Ativan. Based on exam and history imaging studies not indicated. Labs significant for leukocytosis, hypokalemia and positive THC. Patient improved after medication. Potassium low. Oral potassium ordered. She refused saying that she would vomit it back up. IV potassium ordered instead of p.o. potassium. Patient ambulated to the bathroom in no distress. Patient awake and complaining about return nausea and increased pain. Reglan Benadryl and morphine ordered. Still with pain and vomiting. Phenergan IV ordered. Patient admitted for observation as she has leukocytosis and persistent vomiting and abdominal pain. Laboratory Tests Test 05/26/20 02:10 05/26/20 04:10 White Blood Count 13.8 K/UL (4.8-10.8) H Red Blood Count 4.41 M/UL (4.20-5.40) Hemoglobin 13.1 G/DL (12.0-16.0) Hematocrit 39.1 % (37.0-47.0) Mean Corpuscular Volume 89 FL (80-99) Mean Corpuscular Hemoglobin 29.6 PG (27.0-31.0) Mean Corpuscular Hemoglobin Concent 33.4 G/DL (32.0-36.0) Red Cell Distribution Width 11.9 % (11.6-14.8) Platelet Count 244 K/UL (150-450) Mean Platelet Volume 6.8 FL (6.5-10.1) Neutrophils (%) (Auto) 68.1 % (45.0-75.0) Lymphocytes (%) (Auto) 22.8 % (20.0-45.0) Monocytes (%) (Auto) 7.8 % (1.0-10.0) Eosinophils (%) (Auto) 0.4 % (0.0-3.0) Basophils (%) (Auto) 0.9 % (0.0-2.0) Sodium Level 139 MMOL/L (136-145) Potassium Level 3.0 MMOL/L (3.5-5.1) L Chloride Level 103 MMOL/L (98-107) Carbon Dioxide Level 23 MMOL/L (21-32) Anion Gap 14 mmol/L (5-15) Blood Urea Nitrogen 7 mg/dL (7-18) Creatinine 0.9 MG/DL (0.55-1.30) Estimated Glomerular Filtration Rate > 60 mL/min (>60) Glucose Level 107 MG/DL (74-106) H Calcium Level 8.5 MG/DL (8.5-10.1) Magnesium Level 2.1 MG/DL (1.8-2.4) Total Bilirubin 0.5 MG/DL (0.2-1.0) Aspartate Amino Transferase (AST) 29 U/L (15-37) Alanine Aminotransferase (ALT) 26 U/L (12-78) Alkaline Phosphatase 55 U/L (46-116) Total Protein 7.1 G/DL (6.4-8.2) Albumin 3.8 G/DL (3.4-5.0) Globulin 3.3 g/dL Albumin/Globulin Ratio 1.2 (1.0-2.7) Lipase 155 U/L (73-393) Urine Color Pending Urine Appearance Pending Urine pH Pending Urine Specific [place] Pending Urine Protein Pending Urine Glucose (UA) Pending Urine Ketones Pending Urine Blood Pending Urine Nitrite Pending Urine Bilirubin Pending Urine Urobilinogen Pending Urine Leukocyte Esterase Pending Urine HCG, Qualitative Pending Urine Opiates Screen Negative (NEGATIVE) Urine Barbiturates Screen Negative (NEGATIVE) Phencyclidine (PCP) Screen Negative (NEGATIVE) Urine Amphetamines Screen Negative (NEGATIVE) Urine Benzodiazepines Screen Negative (NEGATIVE) Urine Cocaine Screen Negative (NEGATIVE) Urine Marijuana (THC) Screen Positive (NEGATIVE) H Last Vital Signs Date Time Temp Pulse Resp B/P (MAP) Pulse Ox O2 Delivery O2 Flow Rate FiO2 05/26/20 09:40 98.1 05/26/20 08:00 81 20 136/75 (95) 96 05/26/20 07:43 Room Air Status: improved Disposition: PLACE IN OBSERVATION Condition: Serious Referrals: NON PHYSICIAN (PCP) Maxi Duffy MD May 26, 2020 02:01
[2020-05-26 02:25] LABS: BASOPHILS % (AUTO) 0.9 % (0.0-2.0); EOSINOPHILS % (AUTO) 0.4 % (0.0-3.0); HEMATOCRIT 39.1 % (37.0-47.0); HEMOGLOBIN 13.1 G/DL (12.0-16.0); LYMPHOCYTES % (AUTO) 22.8 % (20.0-45.0); MEAN CORPUSCULAR VOLUME 89 FL (80-99); MONOCYTES % (AUTO) 7.8 % (1.0-10.0); NEUTROPHILS % (AUTO) 68.1 % (45.0-75.0); PLATELET COUNT 244 K/UL (150-450); RED BLOOD COUNT 4.41 M/UL (4.20-5.40); RED CELL DISTRIBUTION WIDTH 11.9 % (11.6-14.8); WHITE BLOOD COUNT 13.8 K/UL (4.8-10.8)
[2020-05-26 02:36] LABS: ANION GAP 14 mmol/L (5-15); BLOOD UREA NITROGEN 7 mg/dL (7-18); CALCIUM 8.5 MG/DL (8.5-10.1); CARBON DIOXIDE 23 MMOL/L (21-32); CHLORIDE 103 MMOL/L (98-107); CREATININE 0.9 MG/DL (0.55-1.30); SODIUM 139 MMOL/L (136-145)
[2020-05-26 02:41] LABS: ALANINE AMINOTRANSFERASE 26 U/L (12-78); ALBUMIN 3.8 G/DL (3.4-5.0); ALBUMIN/GLOBULIN RATIO 1.2 (1.0-2.7); ALKALINE PHOSPHATASE 55 U/L (46-116); ASPARTATE AMINO TRANSFERASE 29 U/L (15-37); BILIRUBIN,TOTAL 0.5 MG/DL (0.2-1.0)
[2020-05-26] MEDS ORDERED: Metoclopramide 10mg/2ml Inj IVP ONE (04:15)
[2020-05-26] MEDS ORDERED: DiphenhydrAMINE 50mg/ml Inj IVP ONE (04:15)
[2020-05-26] MEDS ORDERED: Morphine Sulfate 2mg/ml Inj(IV/IM USE ONLY) IVP ONE (04:15)
[2020-05-26] MEDS ORDERED: Promethazine HCl 25 MG in NS 55 ML IVPB STA (04:26)
[2020-05-26 04:51] LABS: APPEARANCE,URINE CLEAR; COLOR,URINE PALE YELLOW; PH,URINE 7 (4.5-8.0)
[2020-05-26 04:52] LABS: BILIRUBIN, URINE NEGATIVE (NEGATIVE); GLUCOSE, URINE (UA) NEGATIVE (NEGATIVE); KETONES,URINE 3+ (NEGATIVE); LEUKOCYTE ESTERASE ,URINE NEGATIVE (NEGATIVE); NITRITE,URINE NEGATIVE (NEGATIVE); PROTEIN,URINE NEGATIVE (NEGATIVE); UROBILINOGEN,URINE NORMAL MG/DL (0.0-1.0)
[2020-05-26] MEDS ORDERED: ATIVAN1 MG ORAL (05:22)
[2020-05-26] MEDS ORDERED: NS w/KCl 40mEq 1,000 ML IV SCH (05:45)
[2020-05-26] MEDS ORDERED: Morphine Sulfate 2mg/ml Inj(IV/IM USE ONLY) IVP PRN (05:45)
[2020-05-26] MEDS: D5 1/2NS 1,000 ML IV SCH ×2 (09:09→23:38)
[2020-05-26] MEDS: Morphine Sulfate 2mg/ml Inj(IV/IM USE ONLY) IVP PRN ×4 (09:10→21:22)
--- NOTE | 2020-05-26 12:55 | General Progress Note ---
Assessment/Plan Problem List: (1) Intractable nausea and vomiting ICD Codes: R11.2 - Nausea with vomiting, unspecified SNOMED: 459492591, 078962993 (2) Cyclic vomiting syndrome ICD Codes: G43.A0 - Cyclical vomiting, not intractable SNOMED: 86642464 (3) Cannabis abuse ICD Codes: F12.10 - Cannabis abuse, uncomplicated SNOMED: 88249062 (4) Dehydration ICD Codes: E86.0 - Dehydration SNOMED: 95494594 (5) Abdominal pain ICD Codes: R10.9 - Unspecified abdominal pain SNOMED: 91496641 Qualifiers: Qualified Codes: R10.84 - Generalized abdominal pain Assessment/Plan: ivf zofran prn ppi advance diet as tolerated avoid THC Subjective Allergies: Coded Allergies: SULFA (SULFONAMIDE ANTIBIOTICS) (Verified Allergy, Unknown, 02/23/11) Objective Last 24 Hour Vital Signs Date Time Temp Pulse Resp B/P (MAP) Pulse Ox O2 Delivery O2 Flow Rate FiO2 05/26/20 12:00 98.2 102 20 142/80 (100) 97 05/26/20 09:40 98.1 05/26/20 08:00 98.1 81 20 136/75 (95) 96 05/26/20 07:43 Room Air 05/26/20 07:36 Room Air 05/26/20 06:37 97.7 99 20 151/104 (120) 96 05/26/20 06:10 98.3 97 15 122/78 98 Room Air 05/26/20 04:49 111 16 125/75 99 Room Air 05/26/20 04:35 98.6 05/26/20 01:45 127 18 Room Air 05/26/20 01:45 98.6 105 18 158/93 98 Room Air 05/26/20 01:37 98.4 127 18 93 Room Air Intake and Output 05/25/20 05/26/20 19:00 07:00 Intake Total 1256 ml Balance 1256 ml Intake Oral 0 ml IV Total 1256 ml # Voids 3 Laboratory Tests 05/26/20 02:10: White Blood Count 13.8H, Red Blood Count 4.41, Hemoglobin 13.1, Hematocrit 39.1 , Mean Corpuscular Volume 89, Mean Corpuscular Hemoglobin 29.6, Mean Corpuscular Hemoglobin Concent 33.4, Red Cell Distribution Width 11.9, Platelet Count 244, Mean Platelet Volume 6.8, Neutrophils (%) (Auto) 68.1, Lymphocytes (% ) (Auto) 22.8, Monocytes (%) (Auto) 7.8, Eosinophils (%) (Auto) 0.4, Basophils ( %) (Auto) 0.9, Sodium Level 139, Potassium Level 3.0L, Chloride Level 103, Carbon Dioxide Level 23, Anion Gap 14, Blood Urea Nitrogen 7, Creatinine 0.9, Estimat Glomerular Filtration Rate > 60, Glucose Level 107H, Calcium Level 8.5, Magnesium Level 2.1, Total Bilirubin 0.5, Aspartate Amino Transf (AST/SGOT) 29, Alanine Aminotransferase (ALT/SGPT) 26, Alkaline Phosphatase 55, Total Protein 7.1, Albumin 3.8, Globulin 3.3, Albumin/Globulin Ratio 1.2, Lipase 155 05/26/20 04:10: Urine Color Pale yellow, Urine Appearance Clear, Urine pH 7, Urine Specific [place] 1.010, Urine Protein Negative, Urine Glucose (UA) Negative, Urine Ketones 3+H, Urine Blood Negative, Urine Nitrite Negative, Urine Bilirubin Negative, Urine Urobilinogen Normal, Urine Leukocyte Esterase Negative, Urine HCG, Qualitative Negative, Urine Opiates Screen Negative, Urine Barbiturates Screen Negative, Phencyclidine (PCP) Screen Negative, Urine Amphetamines Screen Negative, Urine Benzodiazepines Screen Negative, Urine Cocaine Screen Negative, Urine Marijuana (THC) Screen PositiveH Height (Feet): 5 Height (Inches): 8.00 Weight (Pounds): 155 General Appearance: alert EENT: normal ENT inspection Neck: supple Cardiovascular: normal rate Respiratory/Chest: decreased breath sounds Abdomen: normal bowel sounds, non tender, soft Extremities: non-tender Ferny Wood MD May 26, 2020 12:55
--- NOTE | 2020-05-26 15:45 | Consultation ---
History of Present Illness General Date patient seen: May 26, 2020 Chief Complaint: Vomiting Present Illness HPI 35 y/o F with hx of asthma, cyclic vomiting 2ry to THC use presented to ED on with intractable vomiting and epigastric abdominal pain described as burning , achy and constant Denied fever, chills, diarrhea. Allergies: Coded Allergies: SULFA (SULFONAMIDE ANTIBIOTICS) (Verified Allergy, Unknown, 02/23/11) Medication History Scheduled Lorazepam* (Ativan*), 1 MG ORAL THREE TIMES A DAY, (Reported) Scheduled PRN Ondansetron Odt* (Zofran Odt*), 8 MG ORAL Q6H PRN for Nausea & Vomiting Patient History Healthcare decision maker Resuscitation status Advanced Directive on File Patient History Narrative PMhx: as above Shx: Reports: drug use - THC; Denies: smoking Fhx: non contributory Review of Systems All Other Systems: negative except mentioned in HPI Physical Exam Physical Exam Narrative General Appearance: alert EENT: normal ENT inspection Neck: supple Cardiovascular: normal rate Respiratory/Chest: decreased breath sounds Abdomen: normal bowel sounds, non tender, soft Extremities: non-tender Last 24 Hour Vital Signs Date Time Temp Pulse Resp B/P (MAP) Pulse Ox O2 Delivery O2 Flow Rate FiO2 05/26/20 13:44 98.2 05/26/20 12:00 98.2 102 20 142/80 (100) 97 05/26/20 08:00 98.1 81 20 136/75 (95) 96 05/26/20 07:43 Room Air 05/26/20 07:36 Room Air 05/26/20 06:37 97.7 99 20 151/104 (120) 96 05/26/20 06:10 98.3 97 15 122/78 98 Room Air 05/26/20 04:49 111 16 125/75 99 Room Air 05/26/20 04:35 98.6 05/26/20 01:45 127 18 Room Air 05/26/20 01:45 98.6 105 18 158/93 98 Room Air 05/26/20 01:37 98.4 127 18 93 Room Air Intake and Output 05/25/20 05/26/20 19:00 07:00 Intake Total 1256 ml Balance 1256 ml Intake Oral 0 ml IV Total 1256 ml # Voids 3 Laboratory Tests Test 05/26/20 02:10 05/26/20 04:10 White Blood Count 13.8 K/UL (4.8-10.8) H Red Blood Count 4.41 M/UL (4.20-5.40) Hemoglobin 13.1 G/DL (12.0-16.0) Hematocrit 39.1 % (37.0-47.0) Mean Corpuscular Volume 89 FL (80-99) Mean Corpuscular Hemoglobin 29.6 PG (27.0-31.0) Mean Corpuscular Hemoglobin Concent 33.4 G/DL (32.0-36.0) Red Cell Distribution Width 11.9 % (11.6-14.8) Platelet Count 244 K/UL (150-450) Mean Platelet Volume 6.8 FL (6.5-10.1) Neutrophils (%) (Auto) 68.1 % (45.0-75.0) Lymphocytes (%) (Auto) 22.8 % (20.0-45.0) Monocytes (%) (Auto) 7.8 % (1.0-10.0) Eosinophils (%) (Auto) 0.4 % (0.0-3.0) Basophils (%) (Auto) 0.9 % (0.0-2.0) Sodium Level 139 MMOL/L (136-145) Potassium Level 3.0 MMOL/L (3.5-5.1) L Chloride Level 103 MMOL/L (98-107) Carbon Dioxide Level 23 MMOL/L (21-32) Anion Gap 14 mmol/L (5-15) Blood Urea Nitrogen 7 mg/dL (7-18) Creatinine 0.9 MG/DL (0.55-1.30) Estimat Glomerular Filtration Rate > 60 mL/min (>60) Glucose Level 107 MG/DL (74-106) H Calcium Level 8.5 MG/DL (8.5-10.1) Magnesium Level 2.1 MG/DL (1.8-2.4) Total Bilirubin 0.5 MG/DL (0.2-1.0) Aspartate Amino Transf (AST/SGOT) 29 U/L (15-37) Alanine Aminotransferase (ALT/SGPT) 26 U/L (12-78) Alkaline Phosphatase 55 U/L (46-116) Total Protein 7.1 G/DL (6.4-8.2) Albumin 3.8 G/DL (3.4-5.0) Globulin 3.3 g/dL Albumin/Globulin Ratio 1.2 (1.0-2.7) Lipase 155 U/L (73-393) Urine Color Pale yellow Urine Appearance Clear Urine pH 7 (4.5-8.0) Urine Specific [place] 1.010 (1.005-1.035) Urine Protein Negative (NEGATIVE) Urine Glucose (UA) Negative (NEGATIVE) Urine Ketones 3+ (NEGATIVE) H Urine Blood Negative (NEGATIVE) Urine Nitrite Negative (NEGATIVE) Urine Bilirubin Negative (NEGATIVE) Urine Urobilinogen Normal MG/DL (0.0-1.0) Urine Leukocyte Esterase Negative (NEGATIVE) Urine HCG, Qualitative Negative (NEGATIVE) Urine Opiates Screen Negative (NEGATIVE) Urine Barbiturates Screen Negative (NEGATIVE) Phencyclidine (PCP) Screen Negative (NEGATIVE) Urine Amphetamines Screen Negative (NEGATIVE) Urine Benzodiazepines Screen Negative (NEGATIVE) Urine Cocaine Screen Negative (NEGATIVE) Urine Marijuana (THC) Screen Positive (NEGATIVE) H Height (Feet): 5 Height (Inches): 8.00 Weight (Pounds): 155 Medications Current Medications Medications (Trade) Dose Ordered Sig/Shanta Route PRN Reason Start Time Stop Time Status Last Admin Dose Admin Dextrose/Sodium Chloride 1,000 ml @ 60 mls/hr [id number] IV 05/26/20 07:00 06/25/20 06:59 05/26/20 09:09 Lorazepam (Ativan) 1 mg Q8H PRN ORAL For Anxiety 05/26/20 07:00 06/02/20 06:59 Morphine Sulfate (Morphine Sulfate) 2 mg Q4H PRN IVP For Pain 05/26/20 07:00 06/02/20 06:59 05/26/20 13:14 Ondansetron HCl (Zofran) 4 mg Q4H PRN IVP Nausea & Vomiting 05/26/20 07:00 06/25/20 06:59 05/26/20 13:13 Pantoprazole (Protonix) 40 mg DAILY IVP 05/27/20 09:00 06/26/20 08:59 Assessment/Plan Assessment/Plan: Abx: None Assessment: SIRS vs sepsis Afebrile Mild leukocytosis -u/a neg Abdominal pain and vomiting- r/o COVID19- has hx of cyclic vomiting syndrome UDS +THC asthma hx of cyclic vomiting 2ry to THC Plan: -Continue to monitor off abx -f/u cx -Monitor CBC/CMP, temperatures -Bcx x 2, ABD US -COVID19 isolation and testing Thank you for consulting [facility]. Will continue to follow along with you. Discussed wit DENNIS. Tanya Plascencia M.D. May 26, 2020 15:45
[2020-05-26] MEDS: LORazepam 1mg tab ORAL PRN (16:07)
--- NOTE | 2020-05-26 19:17 | Diagnostic Imaging Report ---
EXAM: ULTRASOUND US ABD Complete CLINICAL HISTORY: Reason For Exam: ABD PAIN. COMPARISON: None TECHNIQUE: Ultrasound examination of the abdomen includes grayscale images, and color and spectral doppler analysis. FINDINGS: The liver and spleen are homogeneous. The gallbladder is without sludge or stone. Common bile duct measures 3 mm. The pancreas is unremarkable to the extent visualized. The kidneys are normal in size, shape and axis. Aorta and cava are within normal limits. IMPRESSION: UNREMARKABLE ULTRASOUND OF THE ABDOMEN.
--- NOTE | 2020-05-26 21:00 | History and Physical Report ---
DATE OF ADMISSION: 05/26/2020 TIME SEEN: 1 p.m. CONSULTANTS: 1. Ferny Wood MD. 2. Rafi Donis MD. CHIEF COMPLAINT: Vomiting, leukocytosis. BRIEF HISTORY: This is a 35-year-old female, who lives at home with history of cyclic vomiting. Apparently had 1 week of increased vomiting, came to [place], diagnosed with above, also leukocytosis, admitted to medical floor. Currently, calm in bed, slightly nauseous and vomiting. No complaint. REVIEW OF SYSTEMS: No chest pain. No shortness of breath. Slight nausea and vomiting. No diarrhea. PAST MEDICAL HISTORY: Includes asthma and cyclic vomiting. PAST SURGICAL HISTORY: None. MEDICATIONS: Include pantoprazole, morphine, Zofran, lorazepam, potassium, Reglan. ALLERGIES: Sulfa. SOCIAL HISTORY: No smoke. Occasional alcohol. Positive marijuana use. PHYSICAL EXAMINATION: GENERAL: Calm in bed, oriented x3, slight distress secondary to vomiting. VITAL SIGNS: Temperature is 98 degrees, pulse 102, respirations 20, blood pressure 142/80. CARDIOVASCULAR: S1, S2. No murmur. LUNGS: Distant and clear. ABDOMEN: Bowel sound positive. Nontender. Nondistended. EXTREMITIES: No cyanosis, clubbing, or edema. NEUROLOGIC: Patient moves all extremities, slightly weak. LABORATORY AND DIAGNOSTIC DATA: Labs at this time show white count 13.8, otherwise CBC is normal. BMP show potassium 3.0, glucose 107, otherwise normal. Urinalysis 3+ ketone. Urine toxicology positive for marijuana. ASSESSMENT: 1. Cyclic vomiting. 2. Leukocytosis. 3. Hypokalemia. PLAN: 1. Antiemetics. 2. Zofran p.r.n. 3. Morphine p.r.n. 4. NPO. 5. IV fluids. 6. Replace potassium. 7. CBC, BMP in the morning. 8. Dietary eval. Rayray Bill D.O. DR: MEGAN JOB#: [id number] CC:
[2020-05-27] VITALS: BP 130/78
[2020-05-27] MEDS: LORazepam 1mg tab ORAL PRN (00:23)
[2020-05-27] MEDS: Morphine Sulfate 2mg/ml Inj(IV/IM USE ONLY) IVP PRN ×5 (02:09→21:58)
[2020-05-27 04:00] VITALS: BP 139/76
[2020-05-27 06:18] LABS: BASOPHILS % (AUTO) 1.2 % (0.0-2.0); EOSINOPHILS % (AUTO) 2.1 % (0.0-3.0); HEMATOCRIT 43.4 % (37.0-47.0); HEMOGLOBIN 14.2 G/DL (12.0-16.0); LYMPHOCYTES % (AUTO) 44.8 % (20.0-45.0); MEAN CORPUSCULAR VOLUME 89 FL (80-99); MONOCYTES % (AUTO) 7.5 % (1.0-10.0); NEUTROPHILS % (AUTO) 44.3 % (45.0-75.0); PLATELET COUNT 208 K/UL (150-450); RED BLOOD COUNT 4.89 M/UL (4.20-5.40); RED CELL DISTRIBUTION WIDTH 11.6 % (11.6-14.8); WHITE BLOOD COUNT 8.8 K/UL (4.8-10.8)
[2020-05-27 07:08] LABS: ALANINE AMINOTRANSFERASE 31 U/L (12-78); ALBUMIN 3.7 G/DL (3.4-5.0); ALBUMIN/GLOBULIN RATIO 1.1 (1.0-2.7); ALKALINE PHOSPHATASE 55 U/L (46-116); ANION GAP 14 mmol/L (5-15); ASPARTATE AMINO TRANSFERASE 22 U/L (15-37); BILIRUBIN,TOTAL 0.4 MG/DL (0.2-1.0); BLOOD UREA NITROGEN 5 mg/dL (7-18); CALCIUM 8.9 MG/DL (8.5-10.1); CARBON DIOXIDE 22 MMOL/L (21-32); CHLORIDE 98 MMOL/L (98-107); CREATININE 0.8 MG/DL (0.55-1.30); POTASSIUM 2.9 MMOL/L (3.5-5.1); SODIUM 134 MMOL/L (136-145)
[2020-05-27 07:44] LABS: AMYLASE 144 U/L (25-115)
[2020-05-27 08:00] VITALS: BP 111/74
[2020-05-27] MEDS: Pantoprazole Inj IVP SCH (08:05)
--- NOTE | 2020-05-27 10:52 | General Progress Note ---
Assessment/Plan Problem List: (1) Hypokalemia ICD Codes: E87.6 - Hypokalemia SNOMED: 02446283 (2) Intractable cyclical vomiting ICD Codes: G43.A1 - Cyclical vomiting, intractable SNOMED: 73916460 (3) Hypokalemia ICD Codes: E87.6 - Hypokalemia SNOMED: 52867464 Status: unchanged Assessment/Plan: antiemetic prn gi f/u cbc bmp in am Subjective Constitutional: Reports: weakness Allergies: Coded Allergies: SULFA (SULFONAMIDE ANTIBIOTICS) (Verified Allergy, Unknown, 02/23/11) All Systems: reviewed and negative except above Subjective sl nausea Objective Last 24 Hour Vital Signs Date Time Temp Pulse Resp B/P (MAP) Pulse Ox O2 Delivery O2 Flow Rate FiO2 05/27/20 09:00 Room Air 05/27/20 08:00 98.6 101 20 111/74 (86) 96 05/27/20 04:00 98.6 86 20 139/76 (97) 98 05/27/20 02:39 98.1 05/27/20 00:00 98.1 84 20 130/78 (95) 92 05/26/20 21:00 Room Air 05/26/20 20:00 98.1 98 20 120/77 (91) 98 05/26/20 16:00 98.1 101 20 128/86 (100) 98 05/26/20 12:00 98.2 102 20 142/80 (100) 97 Intake and Output 05/26/20 05/27/20 19:00 07:00 Intake Total 830 ml 990 ml Balance 830 ml 990 ml Intake Oral 240 ml 450 ml IV Total 590 ml 540 ml # Voids 3 2 Laboratory Tests 05/27/20 05:00: White Blood Count 8.8, Red Blood Count 4.89, Hemoglobin 14.2, Hematocrit 43.4, Mean Corpuscular Volume 89, Mean Corpuscular Hemoglobin 29.1, Mean Corpuscular Hemoglobin Concent 32.8, Red Cell Distribution Width 11.6, Platelet Count 208, Mean Platelet Volume 6.9, Neutrophils (%) (Auto) 44.3L, Lymphocytes (%) (Auto) 44.8, Monocytes (%) (Auto) 7.5, Eosinophils (%) (Auto) 2.1, Basophils (%) (Auto ) 1.2, Sodium Level 134L, Potassium Level 2.9L, Chloride Level 98, Carbon Dioxide Level 22, Anion Gap 14, Blood Urea Nitrogen 5L, Creatinine 0.8, Estimat Glomerular Filtration Rate > 60, Glucose Level 105, Calcium Level 8.9, Total Bilirubin 0.4, Aspartate Amino Transf (AST/SGOT) 22, Alanine Aminotransferase ( ALT/SGPT) 31, Alkaline Phosphatase 55, Total Protein 7.1, Albumin 3.7, Globulin 3.4, Albumin/Globulin Ratio 1.1, Amylase Level 144H, Lipase 1384H Height (Feet): 5 Height (Inches): 8.00 Weight (Pounds): 155 General Appearance: lethargic EENT: normal ENT inspection Neck: normal alignment Cardiovascular: normal peripheral pulses, normal rate, regular rhythm Respiratory/Chest: chest wall non-tender, lungs clear, normal breath sounds Abdomen: normal bowel sounds, non tender, soft Extremities: normal inspection Edema: no edema noted Arm (L), no edema noted Arm (R), no edema noted Leg (L), no edema noted Leg (R), no edema noted Pedal (L), no edema noted Pedal (R), no edema noted Generalized Neurologic: motor weakness Skin: normal pigmentation, warm/dry Rayray Bill DO May 27, 2020 10:52
[2020-05-27 12:00] VITALS: BP 125/81
--- NOTE | 2020-05-27 12:35 | General Progress Note ---
Assessment/Plan Problem List: (1) Intractable nausea and vomiting ICD Codes: R11.2 - Nausea with vomiting, unspecified SNOMED: 856570091, 116160631 (2) Cyclic vomiting syndrome ICD Codes: G43.A0 - Cyclical vomiting, not intractable SNOMED: 69033103 (3) Cannabis abuse ICD Codes: F12.10 - Cannabis abuse, uncomplicated SNOMED: 49025882 (4) Dehydration ICD Codes: E86.0 - Dehydration SNOMED: 41947103 (5) Abdominal pain ICD Codes: R10.9 - Unspecified abdominal pain SNOMED: 79631963 Qualifiers: Qualified Codes: R10.84 - Generalized abdominal pain Status: unchanged Assessment/Plan: ivf zofran prn ppi advance diet as tolerated>>>low fat diet avoid THC add elavil repeat amylase and lipase Subjective ROS Limited/Unobtainable: Yes Allergies: Coded Allergies: SULFA (SULFONAMIDE ANTIBIOTICS) (Verified Allergy, Unknown, 02/23/11) Objective Last 24 Hour Vital Signs Date Time Temp Pulse Resp B/P (MAP) Pulse Ox O2 Delivery O2 Flow Rate FiO2 05/27/20 09:00 Room Air 05/27/20 08:00 98.6 101 20 111/74 (86) 96 05/27/20 04:00 98.6 86 20 139/76 (97) 98 05/27/20 02:39 98.1 05/27/20 00:00 98.1 84 20 130/78 (95) 92 05/26/20 21:00 Room Air 05/26/20 20:00 98.1 98 20 120/77 (91) 98 05/26/20 16:00 98.1 101 20 128/86 (100) 98 Intake and Output 05/26/20 05/27/20 19:00 07:00 Intake Total 830 ml 990 ml Balance 830 ml 990 ml Intake Oral 240 ml 450 ml IV Total 590 ml 540 ml # Voids 3 2 Laboratory Tests 05/27/20 05:00: White Blood Count 8.8, Red Blood Count 4.89, Hemoglobin 14.2, Hematocrit 43.4, Mean Corpuscular Volume 89, Mean Corpuscular Hemoglobin 29.1, Mean Corpuscular Hemoglobin Concent 32.8, Red Cell Distribution Width 11.6, Platelet Count 208, Mean Platelet Volume 6.9, Neutrophils (%) (Auto) 44.3L, Lymphocytes (%) (Auto) 44.8, Monocytes (%) (Auto) 7.5, Eosinophils (%) (Auto) 2.1, Basophils (%) (Auto ) 1.2, Sodium Level 134L, Potassium Level 2.9L, Chloride Level 98, Carbon Dioxide Level 22, Anion Gap 14, Blood Urea Nitrogen 5L, Creatinine 0.8, Estimat Glomerular Filtration Rate > 60, Glucose Level 105, Calcium Level 8.9, Total Bilirubin 0.4, Aspartate Amino Transf (AST/SGOT) 22, Alanine Aminotransferase ( ALT/SGPT) 31, Alkaline Phosphatase 55, Total Protein 7.1, Albumin 3.7, Globulin 3.4, Albumin/Globulin Ratio 1.1, Amylase Level 144H, Lipase 1384H Height (Feet): 5 Height (Inches): 8.00 Weight (Pounds): 155 General Appearance: alert EENT: PERRL/EOMI Neck: supple Cardiovascular: normal rate Respiratory/Chest: lungs clear Abdomen: non tender, soft, hypoactive bowel sounds Extremities: non-tender Ferny Wood MD May 27, 2020 12:35
[2020-05-27 16:00] VITALS: BP 113/72
[2020-05-27] MEDS: D5 1/2NS 1,000 ML IV SCH (16:20)
--- NOTE | 2020-05-27 19:48 | Infectious Diseases Prog Note ---
Assessment/Plan Assessment: SIRS vs sepsis Afebrile Mild leukocytosis- SP - reactive -u/a neg Abdominal pain and vomiting-hx of cyclic vomitign syndrome- however now repeat lipase is elevated suggest pancreatitis -05/26 lipase 115> 1368 (05/27) -SARS-COV2 pCR neg -Abd US: UNREMARKABLE ULTRASOUND OF THE ABDOMEN. UDS +THC asthma hx of cyclic vomiting 2ry to THC Plan: -Continue to monitor off abx -f/u cx -Monitor CBC/CMP, temperatures -f/u Bcx x 2 -GI f./u Thank you for consulting [facility]. Will continue to follow along with you. Torsten flores RN. Subjective Allergies: Coded Allergies: SULFA (SULFONAMIDE ANTIBIOTICS) (Verified Allergy, Unknown, 02/23/11) afebrile leukocytosis repeat lipase elevated Abd US normal Objective Last 24 Hour Vital Signs Date Time Temp Pulse Resp B/P (MAP) Pulse Ox O2 Delivery O2 Flow Rate FiO2 05/27/20 16:00 97.7 89 20 113/72 (86) 100 05/27/20 12:00 97.7 82 18 125/81 (96) 99 05/27/20 09:00 Room Air 05/27/20 08:00 98.6 101 20 111/74 (86) 96 05/27/20 04:00 98.6 86 20 139/76 (97) 98 05/27/20 02:39 98.1 05/27/20 00:00 98.1 84 20 130/78 (95) 92 05/26/20 21:00 Room Air 05/26/20 20:00 98.1 98 20 120/77 (91) 98 Height (Feet): 5 Height (Inches): 8.00 Weight (Pounds): 155 General Appearance: alert EENT: normal ENT inspection Neck: supple Cardiovascular: normal rate Respiratory/Chest: decreased breath sounds Abdomen: normal bowel sounds, non tender, soft Extremities: non-tender Microbiology Date/Time Source Procedure Growth Status 05/26/20 17:17 Nasopharynx Coronavirus COVID-19 PCR ([facility]) - Final Complete Laboratory Tests Test 05/27/20 05:00 White Blood Count 8.8 K/UL (4.8-10.8) Red Blood Count 4.89 M/UL (4.20-5.40) Hemoglobin 14.2 G/DL (12.0-16.0) Hematocrit 43.4 % (37.0-47.0) Mean Corpuscular Volume 89 FL (80-99) Mean Corpuscular Hemoglobin 29.1 PG (27.0-31.0) Mean Corpuscular Hemoglobin Concent 32.8 G/DL (32.0-36.0) Red Cell Distribution Width 11.6 % (11.6-14.8) Platelet Count 208 K/UL (150-450) Mean Platelet Volume 6.9 FL (6.5-10.1) Neutrophils (%) (Auto) 44.3 % (45.0-75.0) L Lymphocytes (%) (Auto) 44.8 % (20.0-45.0) Monocytes (%) (Auto) 7.5 % (1.0-10.0) Eosinophils (%) (Auto) 2.1 % (0.0-3.0) Basophils (%) (Auto) 1.2 % (0.0-2.0) Sodium Level 134 MMOL/L (136-145) L Potassium Level 2.9 MMOL/L (3.5-5.1) L Chloride Level 98 MMOL/L (98-107) Carbon Dioxide Level 22 MMOL/L (21-32) Anion Gap 14 mmol/L (5-15) Blood Urea Nitrogen 5 mg/dL (7-18) L Creatinine 0.8 MG/DL (0.55-1.30) Estimat Glomerular Filtration Rate > 60 mL/min (>60) Glucose Level 105 MG/DL (74-106) Calcium Level 8.9 MG/DL (8.5-10.1) Total Bilirubin 0.4 MG/DL (0.2-1.0) Aspartate Amino Transf (AST/SGOT) 22 U/L (15-37) Alanine Aminotransferase (ALT/SGPT) 31 U/L (12-78) Alkaline Phosphatase 55 U/L (46-116) Total Protein 7.1 G/DL (6.4-8.2) Albumin 3.7 G/DL (3.4-5.0) Globulin 3.4 g/dL Albumin/Globulin Ratio 1.1 (1.0-2.7) Amylase Level 144 U/L (25-115) H Lipase 1384 U/L (73-393) H Current Medications Medications (Trade) Dose Ordered Sig/Shanta Route PRN Reason Start Time Stop Time Status Last Admin Dose Admin Amitriptyline HCl (Elavil) 25 mg BEDTIME ORAL 05/27/20 21:00 06/26/20 20:59 Dextrose/Sodium Chloride 1,000 ml @ 60 mls/hr [id number] IV 05/26/20 07:00 06/25/20 06:59 05/27/20 16:20 Lorazepam (Ativan) 1 mg Q8H PRN ORAL For Anxiety 05/26/20 07:00 06/02/20 06:59 05/27/20 00:23 Morphine Sulfate (Morphine Sulfate) 2 mg Q4H PRN IVP For Pain 05/26/20 07:00 06/02/20 06:59 05/27/20 17:09 Ondansetron HCl (Zofran) 4 mg Q4H PRN IVP Nausea & Vomiting 05/26/20 07:00 06/25/20 06:59 05/27/20 17:08 Pantoprazole (Protonix) 40 mg DAILY IVP 05/27/20 09:00 06/26/20 08:59 05/27/20 08:05 Tanya Plascencia M.D. May 27, 2020 19:48
[2020-05-27 20:00] VITALS: BP 118/72
[2020-05-28] VITALS: BP 130/71
[2020-05-28 04:00] VITALS: BP 121/74
[2020-05-28] MEDS: Morphine Sulfate 2mg/ml Inj(IV/IM USE ONLY) IVP PRN ×3 (05:38→13:42)
[2020-05-28 06:32] LABS: BASOPHILS % (AUTO) 1.3 % (0.0-2.0); EOSINOPHILS % (AUTO) 2.1 % (0.0-3.0); HEMATOCRIT 41.7 % (37.0-47.0); HEMOGLOBIN 13.7 G/DL (12.0-16.0); LYMPHOCYTES % (AUTO) 46.5 % (20.0-45.0); MEAN CORPUSCULAR VOLUME 90 FL (80-99); MONOCYTES % (AUTO) 7.3 % (1.0-10.0); NEUTROPHILS % (AUTO) 42.8 % (45.0-75.0); PLATELET COUNT 227 K/UL (150-450); RED BLOOD COUNT 4.65 M/UL (4.20-5.40); RED CELL DISTRIBUTION WIDTH 11.9 % (11.6-14.8); WHITE BLOOD COUNT 8.3 K/UL (4.8-10.8)
[2020-05-28 06:55] LABS: AMYLASE 96 U/L (25-115)
[2020-05-28 07:14] LABS: ALANINE AMINOTRANSFERASE 28 U/L (12-78); ALBUMIN 3.4 G/DL (3.4-5.0); ALKALINE PHOSPHATASE 53 U/L (46-116); ANION GAP 10 mmol/L (5-15); ASPARTATE AMINO TRANSFERASE 17 U/L (15-37); BILIRUBIN,TOTAL 0.3 MG/DL (0.2-1.0); BLOOD UREA NITROGEN 9 mg/dL (7-18); CALCIUM 8.4 MG/DL (8.5-10.1); CARBON DIOXIDE 26 MMOL/L (21-32); CHLORIDE 104 MMOL/L (98-107); CREATININE 0.9 MG/DL (0.55-1.30); POTASSIUM 3.3 MMOL/L (3.5-5.1); SODIUM 139 MMOL/L (136-145)
[2020-05-28 08:00] VITALS: BP 138/80
[2020-05-28] MEDS: D5 1/2NS 1,000 ML IV SCH (09:00)
--- NOTE | 2020-05-28 09:11 | General Progress Note ---
Assessment/Plan Problem List: (1) Intractable nausea and vomiting ICD Codes: R11.2 - Nausea with vomiting, unspecified SNOMED: 107384676, 381073992 (2) Cyclic vomiting syndrome ICD Codes: G43.A0 - Cyclical vomiting, not intractable SNOMED: 27608383 (3) Cannabis abuse ICD Codes: F12.10 - Cannabis abuse, uncomplicated SNOMED: 90113896 (4) Dehydration ICD Codes: E86.0 - Dehydration SNOMED: 49314604 (5) Abdominal pain ICD Codes: R10.9 - Unspecified abdominal pain SNOMED: 48070768 Qualifiers: Qualified Codes: R10.84 - Generalized abdominal pain Status: unchanged Assessment/Plan: ivf zofran prn ppi advance diet as tolerated>>>low fat diet avoid THC on elavil repeat amylase and lipase>>> sig improved ok for dc Subjective ROS Limited/Unobtainable: No Allergies: Coded Allergies: SULFA (SULFONAMIDE ANTIBIOTICS) (Verified Allergy, Unknown, 02/23/11) Objective Last 24 Hour Vital Signs Date Time Temp Pulse Resp B/P (MAP) Pulse Ox O2 Delivery O2 Flow Rate FiO2 05/28/20 08:00 98.1 75 20 138/80 (99) 100 05/28/20 04:00 98.1 87 19 121/74 (90) 99 05/28/20 00:00 98.0 86 19 130/71 (90) 97 05/27/20 21:00 Room Air 05/27/20 20:00 97.8 87 20 118/72 (87) 97 05/27/20 16:00 97.7 89 20 113/72 (86) 100 05/27/20 12:00 97.7 82 18 125/81 (96) 99 Intake and Output 05/27/20 05/28/20 19:00 07:00 Intake Total 960 ml 1230 ml Balance 960 ml 1230 ml Intake Oral 360 ml 450 ml IV Total 600 ml 780 ml # Voids 2 3 Laboratory Tests 05/28/20 05:45: White Blood Count 8.3, Red Blood Count 4.65, Hemoglobin 13.7, Hematocrit 41.7, Mean Corpuscular Volume 90, Mean Corpuscular Hemoglobin 29.3, Mean Corpuscular Hemoglobin Concent 32.7, Red Cell Distribution Width 11.9, Platelet Count 227, Mean Platelet Volume 7.0, Neutrophils (%) (Auto) 42.8L, Lymphocytes (%) (Auto) 46.5H, Monocytes (%) (Auto) 7.3, Eosinophils (%) (Auto) 2.1, Basophils (%) (Auto ) 1.3, Sodium Level 139, Potassium Level 3.3L, Chloride Level 104, Carbon Dioxide Level 26, Anion Gap 10, Blood Urea Nitrogen 9, Creatinine 0.9, Estimat Glomerular Filtration Rate > 60, Glucose Level 104, Calcium Level 8.4L, Total Bilirubin 0.3, Aspartate Amino Transf (AST/SGOT) 17, Alanine Aminotransferase ( ALT/SGPT) 28, Alkaline Phosphatase 53, Total Protein 6.7, Albumin 3.4, Globulin 3.3, Albumin/Globulin Ratio 1.0, Amylase Level 96, Lipase 413H Height (Feet): 5 Height (Inches): 8.00 Weight (Pounds): 155 General Appearance: alert EENT: normal ENT inspection Neck: supple Cardiovascular: normal rate Respiratory/Chest: lungs clear Abdomen: normal bowel sounds, non tender, soft Extremities: non-tender Ferny Wood MD May 28, 2020 09:11
[2020-05-28] MEDS: Pantoprazole Inj IVP SCH (09:39)
--- NOTE | 2020-05-28 11:35 | General Progress Note ---
Assessment/Plan Problem List: (1) Anxiety ICD Codes: F41.9 - Anxiety disorder, unspecified SNOMED: 97759839 (2) Intractable cyclical vomiting ICD Codes: G43.A1 - Intractable cyclical vomiting SNOMED: 60159544 (3) Abdominal pain ICD Codes: R10.9 - Unspecified abdominal pain SNOMED: 25145629 Qualifiers: Qualified Codes: R10.84 - Generalized abdominal pain (4) Vomiting ICD Codes: R11.10 - Vomiting, unspecified SNOMED: 009184117 (5) Dehydration ICD Codes: E86.0 - Dehydration SNOMED: 75063649 (6) Cannabis abuse ICD Codes: F12.10 - Cannabis abuse, uncomplicated SNOMED: 20053717 (7) Intractable nausea and vomiting ICD Codes: R11.2 - Nausea with vomiting, unspecified SNOMED: 628377005, 416177152 Status: progressing, unchanged Assessment/Plan: thc abuse cyclical vomitting abdominal pain afebrile supportive rx dehydration push fluids Subjective ROS Limited/Unobtainable: Yes Allergies: Coded Allergies: SULFA (SULFONAMIDE ANTIBIOTICS) (Verified Allergy, Unknown, 02/23/11) Objective Last 24 Hour Vital Signs Date Time Temp Pulse Resp B/P (MAP) Pulse Ox O2 Delivery O2 Flow Rate FiO2 05/28/20 09:00 Room Air 05/28/20 08:00 98.1 75 20 138/80 (99) 100 05/28/20 04:00 98.1 87 19 121/74 (90) 99 05/28/20 00:00 98.0 86 19 130/71 (90) 97 05/27/20 21:00 Room Air 05/27/20 20:00 97.8 87 20 118/72 (87) 97 05/27/20 16:00 97.7 89 20 113/72 (86) 100 05/27/20 12:00 97.7 82 18 125/81 (96) 99 Intake and Output 05/27/20 05/28/20 19:00 07:00 Intake Total 960 ml 1230 ml Balance 960 ml 1230 ml Intake Oral 360 ml 450 ml IV Total 600 ml 780 ml # Voids 2 3 Laboratory Tests 05/28/20 05:45: White Blood Count 8.3, Red Blood Count 4.65, Hemoglobin 13.7, Hematocrit 41.7, Mean Corpuscular Volume 90, Mean Corpuscular Hemoglobin 29.3, Mean Corpuscular Hemoglobin Concent 32.7, Red Cell Distribution Width 11.9, Platelet Count 227, Mean Platelet Volume 7.0, Neutrophils (%) (Auto) 42.8L, Lymphocytes (%) (Auto) 46.5H, Monocytes (%) (Auto) 7.3, Eosinophils (%) (Auto) 2.1, Basophils (%) (Auto ) 1.3, Sodium Level 139, Potassium Level 3.3L, Chloride Level 104, Carbon Dioxide Level 26, Anion Gap 10, Blood Urea Nitrogen 9, Creatinine 0.9, Estimat Glomerular Filtration Rate > 60, Glucose Level 104, Calcium Level 8.4L, Total Bilirubin 0.3, Aspartate Amino Transf (AST/SGOT) 17, Alanine Aminotransferase ( ALT/SGPT) 28, Alkaline Phosphatase 53, Total Protein 6.7, Albumin 3.4, Globulin 3.3, Albumin/Globulin Ratio 1.0, Amylase Level 96, Lipase 413H Height (Feet): 5 Height (Inches): 8.00 Weight (Pounds): 155 Haresh Capone MD May 28, 2020 11:35
[2020-05-28 12:00] VITALS: BP 116/83
--- NOTE | 2020-05-31 15:18 | Discharge Summary ---
Discharge Summary Discharge Summary _ DATE OF ADMISSION: 05/26/2020 DATE OF DISCHARGE: 05/28/2020 DISCHARGED BY: Dr Bill REASON FOR ADMISSION: 35 years old female with past medical history of asthma, cyclic vomiting syndrome, presented to emergency department with abdominal pain and intractable vomiting. Abdominal pain reported to be epigastric, burning, achy and constant. Patient had prior similar episodes, related to THC use. She denied fever or chills She denied diarrhea She denied coffee-ground emesis. She denied melena. Upon evaluation vital signs were stable. Laboratory work-up revealed mild leukocytosis WBC 13.8, stable hemoglobin, hematocrit and platelet count. Potassium 3.0. Stable other electrolytes and renal parameters. Glucose 107. Stable LFT and lipase. Urine toxicology screen was positive for THC. Urinalysis revealed no evidence of UTI. Abdominal ultrasound was unremarkable. In emergency department patient received antiemetic , ,IVF, analgesic and Pepcid . Potassium was replaced. Patient admitted for further management. CONSULTANTS: ID specialist [facility] Plascencia [facility] Patient admitted to medical surgical floor. Patient initially was kept n.p.o. and continued with IV fluids. GI prophylaxis provided. Antiemetic were on board as needed. Patient slowly started on diet and was able and advance as tolerated. GI recommended low-fat diet. Elavil provided. Patient was advised to avoid THC. The next day lipase up to 1384, amylase 144. Lipase and amylase were closely monitored. The next day lipase down to 413 from 1384 and amylase down to normal. Patient initially was kept on isolation. COVID-19 by PCR came back not detected. Blood cultures were negative. Isolation was discontinued. Leukocytosis resolved the next day , likely was reactive. No fevers. ID and GI specialist cleared patient for discharge. Patient clinically stabilized and was ready for discharge home. FINAL DIAGNOSES: SIRS Mild leukocytosis, likely reactive Cyclic vomiting syndrome Hypokalemia Intractable nausea and vomiting Cannabis abuse Dehydration Abdominal pain DISCHARGE MEDICATIONS: See Medication Reconciliation list. DISCHARGE INSTRUCTIONS: Patient was discharged home. Follow-up with a primary care provider in 1 week. I have been assigned to dictate discharge summary for this account. I was not involved in the patient's management. Cyndi Wolfe NP May 31, 2020 15:18
== END 2020-05-28 15:01 | disposition home or self-care (01) | DRG 394 ==
LOC: EMR 01:53 → 4E 04:38 → EDBEDREQ 05:45
DX: R11.15 Cyclical vomiting syndrome unrelated to migraine (principal); R65.10 Systemic inflammatory response syndrome (SIRS) of non-infectious origin without acute organ dysfunction; E87.6 Hypokalemia; E86.0 Dehydration; F41.9 Anxiety disorder, unspecified; F12.10 Cannabis abuse, uncomplicated; Z88.2 Allergy status to sulfonamides; J45.909 Unspecified asthma, uncomplicated; R10.9 Unspecified abdominal pain; D72.829 Elevated white blood cell count, unspecified
CPT/HCPCS: 36415; 76700; 80053; 80307; 81003; 81025; 82150; 83690; 83735; 85025; 87040; 96361; 96365; 96366; 96375; 99285; J2405; J2765; J7030; J8499

== ENCOUNTER 2020-05-29 00:32 | Emergency (ER) | payer OTHER ==
[~2020-05-29] VITALS: Ht 172.7 cm; Wt 70.3 kg
--- NOTE | 2020-05-29 00:40 | NUR ---
ED Nurse Note: ambulated to ed from home c/oabdominal pain. report nausea and vomitting. seen at [facility] ed for cyclic vomitting yesterday. states symptoms have returned. ao4. restless crying from pain. changed into gown; attached to monitor. all safety measures met.
[2020-05-29 00:45] VITALS: BP 135/98
--- NOTE | 2020-05-29 00:45 | NUR ---
ED Nurse Note: iv access established. blood collected; sent down to lab. unable to collect urine at this time; patient states urine will be provided when able; refused straight cath.
--- NOTE | 2020-05-29 01:05 | Emergency Room Report ---
History of Present Illness General Chief Complaint: Vomiting Source: Patient, Medical Record Present Illness HPI This a 35-year-old female well-known to this ER. She has a history of cyclic vomiting syndrome with multiple admission. She was recently admitted and just discharged a couple days ago. She presents with chief complaint abdominal pain with nausea and vomiting. Onset tonight. She was doing well until she started eating again and symptom came back. Pain is severe. Crampy in nature. Vomiting is uncontrollable. Now just retching. Vomiting has no blood. Nonbloody and nonbilious. No diarrhea. Pain is 10 out of 10. Similar symptoms in the past. She also get very anxious because of the retching and vomiting. Allergies: Coded Allergies: SULFA (SULFONAMIDE ANTIBIOTICS) (Verified Allergy, Unknown, 02/23/11) COVID-19 Screening Contact w/high risk pt: No Recent Travel to affected area: No Experienced COVID-19 symptoms?: No COVID-19 Testing performed [employer]PERATOR: No Patient History Past Medical History: see triage record, old chart reviewed Past Surgical History: other Pertinent Family History: none Social History: Denies: smoking Last Menstrual Period: depot shot Now: No Immunizations: other Reviewed Nursing Documentation: PMH: Agreed; PSxH: Agreed Nursing Documentation-PMH Hx Cardiac Problems: No Hx Hypertension: No Hx Pacemaker: No Hx Asthma: Yes Hx COPD: No Hx Diabetes: No Hx Cancer: No Hx Gastrointestinal Problems: Yes - cyclic vomiting syndrome Hx Dialysis: No Hx Neurological Problems: No Hx Cerebrovascular Accident: No Hx Transient Ischemic Attacks: No Hx Dementia: No Hx Alzheimer's Disease: No Hx Parkinson's Disease: No Hx Meningitis: No Hx Encephalitis: No Hx Seizures: No Hx Epilepsy: No Hx Multiple Sclerosis: No Hx Cerebral Palsy: No Hx Amyotrophic Lat Sclerosis: No Hx Guillian-Piedmont Syndrome: No Hx Paralysis: No Hx Peripheral Neuropathy: No Hx Spinal Cord Injury: No Hx Head Trauma: No Hx Traumatic Brain Injury: No Hx Memory Loss: No Hx Concentration Difficulty: No Hx Speech Problem: No Hx Tremors: No Hx Vertigo: No Hx Dizziness: No Hx Syncope: No Hx Headaches: No Hx Aphasia: No Hx Dysphasia: No Hx Numbness: No Hx Weakness: No Hx Fatigue: No Hx Neurologic Surgery: No Hx Brain Shunt: No Review of Systems Eye: Denies: eye pain, blurred vision ENT: Denies: ear pain, nose congestion, throat swelling Respiratory: Denies: cough, shortness of breath Cardiovascular: Denies: chest pain, palpitations Gastrointestinal: Reports: abdominal pain, nausea, vomiting; Denies: diarrhea Musculoskeletal: Denies: back pain, joint pain Skin: Denies: rash Neurological: Denies: headache, numbness Endocrine: Denies: increased thirst, increased urine Hematologic/Lymphatic: Denies: easy bruising All Other Systems: negative except mentioned in HPI Physical Exam Vital Signs Date Time Temp Pulse Resp B/P (MAP) Pulse Ox O2 Delivery O2 Flow Rate FiO2 05/29/20 00:38 99.0 130 19 96 Room Air vitals with tachycardia Sp02 EP Interpretation: reviewed, normal General Appearance: well appearing, no apparent distress, alert Head: normocephalic, atraumatic Eyes: bilateral eye PERRL, bilateral eye EOMI ENT: hearing grossly normal, normal pharynx Neck: full range of motion, supple, no meningismus Respiratory: chest non-tender, lungs clear, normal breath sounds Cardiovascular #1: regular rate, rhythm, no murmur Gastrointestinal: no mass, no organomegaly, no bruit, non-distended, tenderness - Diffuse, decreased bowel sounds Musculoskeletal: back normal, normal range of motion, gait/station normal Psychiatric: mood/affect normal Medical Decision Making Diagnostic Impression: Primary Impression: Cyclic vomiting syndrome Additional Impressions: Dehydration Leukocytosis Qualified Codes: D72.829 - Elevated white blood cell count, unspecified ER Course Patient presents with cyclic vomiting syndrome. Better after IV fluid pain medication and Ativan. Her leukocytosis probably secondary to acute stress response. No evidence of the obstruction or acute abdomen. Will discharge home. Last Vital Signs Date Time Temp Pulse Resp B/P (MAP) Pulse Ox O2 Delivery O2 Flow Rate FiO2 05/29/20 00:38 99.0 130 19 96 Room Air Status: improved Disposition: HOME, SELF-CARE Condition: Stable Referrals: NON PHYSICIAN (PCP) Patient Instructions: Nausea and Vomiting, Adult Additional Instructions: Advance diet as tolerated. Follow-up with your doctor in 7 days. Return if worse. Sam Moore MD May 29, 2020 01:05
[2020-05-29] MEDS ORDERED: HYDROmorphone 1mg/ml Carpuject IVP ONE (01:15)
[2020-05-29] MEDS ORDERED: LORazepam Inj 2mg/ml 1ml IV ONE (01:15)
[2020-05-29 01:31] LABS: BASOPHILS % (AUTO) 0.7 % (0.0-2.0); EOSINOPHILS % (AUTO) 0.5 % (0.0-3.0); HEMATOCRIT 38.7 % (37.0-47.0); HEMOGLOBIN 13.6 G/DL (12.0-16.0); LYMPHOCYTES % (AUTO) 16.4 % (20.0-45.0); MEAN CORPUSCULAR VOLUME 88 FL (80-99); MONOCYTES % (AUTO) 4.8 % (1.0-10.0); NEUTROPHILS % (AUTO) 77.6 % (45.0-75.0); PLATELET COUNT 258 K/UL (150-450); RED CELL DISTRIBUTION WIDTH 11.8 % (11.6-14.8)
[2020-05-29 01:37] LABS: ANION GAP 12 mmol/L (5-15); BLOOD UREA NITROGEN 8 mg/dL (7-18); CALCIUM 8.8 MG/DL (8.5-10.1); CARBON DIOXIDE 24 MMOL/L (21-32); CHLORIDE 104 MMOL/L (98-107); CREATININE 1.1 MG/DL (0.55-1.30); POTASSIUM 3.4 MMOL/L (3.5-5.1); SODIUM 140 MMOL/L (136-145)
[2020-05-29 01:39] LABS: ALANINE AMINOTRANSFERASE 30 U/L (12-78); ALBUMIN 3.9 G/DL (3.4-5.0); ALBUMIN/GLOBULIN RATIO 1.1 (1.0-2.7); ALKALINE PHOSPHATASE 57 U/L (46-116); ASPARTATE AMINO TRANSFERASE 14 U/L (15-37); BILIRUBIN,TOTAL 0.2 MG/DL (0.2-1.0)
--- NOTE | 2020-05-29 02:30 | NUR ---
ED Nurse Note: patient ambulated to bathroom with steady gait. urine collected; sent down to lab. returned to bed; reattached to monitor; vitals stable to baseline. reports decrease in pain 5/10; tolerable; denies need for further pharmaceutical intervention.
[2020-05-29 02:31] VITALS: BP 141/88
[2020-05-29 03:06] LABS: APPEARANCE,URINE CLEAR; BILIRUBIN, URINE NEGATIVE (NEGATIVE); COLOR,URINE PALE YELLOW; GLUCOSE, URINE (UA) NEGATIVE (NEGATIVE); KETONES,URINE 3+ (NEGATIVE); LEUKOCYTE ESTERASE ,URINE NEGATIVE (NEGATIVE); NITRITE,URINE NEGATIVE (NEGATIVE); PH,URINE 6.5 (4.5-8.0); PROTEIN,URINE NEGATIVE (NEGATIVE); UROBILINOGEN,URINE NORMAL MG/DL (0.0-1.0)
[2020-05-29 04:14] VITALS: BP 117/67
--- NOTE | 2020-05-29 04:15 | NUR ---
ED Nurse Note: Patient sleeping in bed with no acute distress. respirations even and unlabored. will continue to monitor.
--- NOTE | 2020-05-29 04:23 | NUR ---
HAND-OFF: Report given to Luanne COLLINS. Patient sleeping comfortably in bed. Vitals remain stable to baseline. Endorsed continuity of care
--- NOTE | 2020-05-29 04:25 | NUR ---
ED Nurse Note: received report from Bryan Espinoza
[2020-05-29 05:00] VITALS: BP 121/72
[2020-05-29 05:20] VITALS: BP 121/72
--- NOTE | 2020-05-29 05:20 | NUR ---
ER DISCHARGE NOTE: Patient is cleared to be discharged per ERMD, pt is aox4, on room air, with stable vital signs. pt was given dc instructions, pt was able to verbalize understanding, pt id band and iv site removed without complications. pt is able to ambulate with steady gait. pt took all belongings.
== END 2020-05-29 05:20 | disposition home or self-care (01) ==
LOC: EMR 00:54
DX: R11.15 Cyclical vomiting syndrome unrelated to migraine (principal); E86.0 Dehydration; D72.829 Elevated white blood cell count, unspecified; Z88.2 Allergy status to sulfonamides
CPT/HCPCS: 36415; 80053; 81003; 81025; 83690; 85025; 96361; 96374; 96375; 96376; 99284; J1170; J2405; J7030

== ENCOUNTER 2020-06-28 11:56 | Inpatient (IN) | payer OTHER ==
[~2020-06-28] VITALS: Ht 172.7 cm; Wt 75.7 kg
[2020-06-28 12:11] VITALS: BP 102/56
--- NOTE | 2020-06-28 12:11 | NUR ---
ED Nurse Note: PT walked in to ED for C/O nausea and vomiting. PT has Hx of cyclic vomiting. Pt is crying in tears stating she does not feel good.
--- NOTE | 2020-06-28 12:12 | NUR ---
ED Nurse Note: PT also reports 10/10 abd pain
--- NOTE | 2020-06-28 12:22 | Emergency Room Report ---
History of Present Illness General Chief Complaint: Vomiting Source: Patient (Coral Doherty M.D.) Present Illness HPI Patient is a 35-year-old female past medical history of cyclical vomiting due to THC use who presents to the ER complaining of vomiting since 7 AM this morning. Patient complains of epigastric pain. She denies any fever or chills. She denies any diarrhea. She denies any chest pain or shortness of breath. She denies any dysuria or hematuria. (Coral Doherty M.D.) Allergies: Coded Allergies: SULFA (SULFONAMIDE ANTIBIOTICS) (Verified Allergy, Unknown, 02/23/11) COVID-19 Screening Contact w/high risk pt: No Recent Travel to affected area: No Experienced COVID-19 symptoms?: Yes COVID-19 Testing performed SUPERVISOR DRY CLEANING: No (Coral Doherty M.D.) Patient History Last Menstrual Period: none- depo Now: No Reviewed Nursing Documentation: PMH: Agreed; PSxH: Agreed (Coral Doherty M.D.) Nursing Documentation-PMH Past Medical History: No History, Except For Hx Cardiac Problems: No Hx Hypertension: No Hx Pacemaker: No Hx Asthma: Yes Hx COPD: No Hx Diabetes: No Hx Cancer: No Hx Gastrointestinal Problems: Yes - cyclic vomiting syndrome Hx Dialysis: No Hx Neurological Problems: No Hx Cerebrovascular Accident: No Hx Transient Ischemic Attacks: No Hx Dementia: No Hx Alzheimer's Disease: No Hx Parkinson's Disease: No Hx Meningitis: No Hx Encephalitis: No Hx Seizures: No Hx Epilepsy: No Hx Multiple Sclerosis: No Hx Cerebral Palsy: No Hx Amyotrophic Lat Sclerosis: No Hx Guillian-Williamson Syndrome: No Hx Paralysis: No Hx Peripheral Neuropathy: No Hx Spinal Cord Injury: No Hx Head Trauma: No Hx Traumatic Brain Injury: No Hx Memory Loss: No Hx Concentration Difficulty: No Hx Speech Problem: No Hx Tremors: No Hx Vertigo: No Hx Dizziness: No Hx Syncope: No Hx Headaches: No Hx Aphasia: No Hx Dysphasia: No Hx Numbness: No Hx Weakness: No Hx Fatigue: No Hx Neurologic Surgery: No Hx Brain Shunt: No (Coral Doherty M.D.) Review of Systems All Other Systems: negative except mentioned in HPI (Coral Doherty M.D.) Physical Exam Vital Signs Date Time Temp Pulse Resp B/P (MAP) Pulse Ox O2 Delivery O2 Flow Rate FiO2 06/28/20 11:58 97.9 124 36 106/52 (70) 99 Room Air Sp02 EP Interpretation: reviewed, normal General Appearance: alert, GCS 15, non-toxic, mild distress - Vomiting Head: normocephalic, atraumatic Eyes: bilateral eye normal inspection, bilateral eye PERRL ENT: dry mucus membranes Neck: full range of motion, supple/symm/no masses Respiratory: chest non-tender, lungs clear, normal breath sounds, speaking full sentences Cardiovascular #1: tachycardia Gastrointestinal: normal bowel sounds, soft, non-distended, no guarding, no rebound, other - Gastric tenderness to palpation Rectal: deferred Genitourinary: no CVA tenderness Musculoskeletal: normal range of motion Neurologic: wafer fabricator III-XII nml as tested, oriented x3 Psychiatric: anxious Skin: no rash, other - Diaphoretic Lymphatic: no adenopathy (Coral Doherty M.D.) Medical Decision Making Diagnostic Impression: Primary Impression: Leukocytosis Additional Impressions: Cannabis abuse Intractable cyclical vomiting Hypercalcemia Prolonged Q-T interval on ECG ER Course Patient well-known to this emergency department. Patient presents with intractable vomiting. Patient given multiple antiemetics and IV fluids. Will reassess patient. Patient signed out to Dr. Hill at 1400. Laboratory Tests Test 06/28/20 12:46 06/28/20 13:40 06/29/20 05:00 White Blood Count 12.2 K/UL (4.8-10.8) H 14.1 K/UL (4.8-10.8) H Red Blood Count 4.91 M/UL (4.20-5.40) 4.46 M/UL (4.20-5.40) Hemoglobin 14.4 G/DL (12.0-16.0) 13.1 G/DL (12.0-16.0) Hematocrit 44.1 % (37.0-47.0) 39.4 % (37.0-47.0) Mean Corpuscular Volume 90 FL (80-99) 88 FL (80-99) Mean Corpuscular Hemoglobin 29.4 PG (27.0-31.0) 29.4 PG (27.0-31.0) Mean Corpuscular Hemoglobin Concent 32.7 G/DL (32.0-36.0) 33.3 G/DL (32.0-36.0) Red Cell Distribution Width 11.9 % (11.6-14.8) 11.9 % (11.6-14.8) Platelet Count 262 K/UL (150-450) 265 K/UL (150-450) Mean Platelet Volume 6.6 FL (6.5-10.1) 7.0 FL (6.5-10.1) Neutrophils (%) (Auto) 79.9 % (45.0-75.0) H 81.7 % (45.0-75.0) H Lymphocytes (%) (Auto) 16.3 % (20.0-45.0) L 12.3 % (20.0-45.0) L Monocytes (%) (Auto) 3.0 % (1.0-10.0) 5.7 % (1.0-10.0) Eosinophils (%) (Auto) 0.1 % (0.0-3.0) 0.0 % (0.0-3.0) Basophils (%) (Auto) 0.7 % (0.0-2.0) 0.3 % (0.0-2.0) Sodium Level 142 MMOL/L (136-145) 156 MMOL/L (136-145) #H Potassium Level 3.8 MMOL/L (3.5-5.1) 3.4 MMOL/L (3.5-5.1) L Chloride Level 107 MMOL/L (98-107) 118 MMOL/L (98-107) H Carbon Dioxide Level 19 MMOL/L (21-32) L 21 MMOL/L (21-32) Anion Gap 16 mmol/L (5-15) H 17 mmol/L (5-15) H Blood Urea Nitrogen 11 mg/dL (7-18) 10 mg/dL (7-18) Creatinine 1.2 MG/DL (0.55-1.30) 0.8 MG/DL (0.55-1.30) Estimated Glomerular Filtration Rate 51.7 mL/min (>60) > 60 mL/min (>60) Glucose Level 191 MG/DL (74-106) H 134 MG/DL (74-106) H Calcium Level 10.4 MG/DL (8.5-10.1) H 9.1 MG/DL (8.5-10.1) Magnesium Level 1.8 MG/DL (1.8-2.4) Total Bilirubin 0.4 MG/DL (0.2-1.0) 0.5 MG/DL (0.2-1.0) Aspartate Amino Transferase (AST) 18 U/L (15-37) 18 U/L (15-37) Alanine Aminotransferase (ALT) 23 U/L (12-78) 21 U/L (12-78) Alkaline Phosphatase 69 U/L (46-116) 63 U/L (46-116) Total Protein 8.2 G/DL (6.4-8.2) 7.9 G/DL (6.4-8.2) Albumin 4.9 G/DL (3.4-5.0) 4.5 G/DL (3.4-5.0) Globulin 3.3 g/dL 3.4 g/dL Albumin/Globulin Ratio 1.5 (1.0-2.7) 1.3 (1.0-2.7) Lipase 150 U/L (73-393) Urine Color Pale yellow Urine Appearance Slightly cloudy Urine pH 6 (4.5-8.0) Urine Specific [place] 1.015 (1.005-1.035) Urine Protein Negative (NEGATIVE) Urine Glucose (UA) 2+ (NEGATIVE) H Urine Ketones 3+ (NEGATIVE) H Urine Blood 1+ (NEGATIVE) H Urine Nitrite Negative (NEGATIVE) Urine Bilirubin Negative (NEGATIVE) Urine Urobilinogen Normal MG/DL (0.0-1.0) Urine Leukocyte Esterase Negative (NEGATIVE) Urine RBC 2-4 /HPF (0 - 2) H Urine WBC 0-2 /HPF (0 - 2) Urine Squamous Epithelial Cells Occasional /LPF Urine Bacteria Moderate /HPF (NONE) H Urine Mucus Few /LPF (NONE/OCC) H Urine HCG, Qualitative Negative (NEGATIVE) Urine Opiates Screen Negative (NEGATIVE) Urine Barbiturates Screen Negative (NEGATIVE) Phencyclidine (PCP) Screen Negative (NEGATIVE) Urine Amphetamines Screen Negative (NEGATIVE) Urine Benzodiazepines Screen Negative (NEGATIVE) Urine Cocaine Screen Negative (NEGATIVE) Urine Marijuana (THC) Screen Positive (NEGATIVE) H (Yomtoubian,Coral M.D.) ER Course Patient presented for vomiting. Had multiple episodes of similar in the past and is well known to me from prior visits. See Dr. Doherty's note for full history and physical. Patient had noted QTC prolongation and urine drug screen was positive for marijuana. Patient is noted to have persistent nausea vomiting despite medications. She was given IV fluids will continue to have nausea. Patient be hospitalized for further treatment of intractable nausea and vomiting. Patient was discussed with Dr. Capone for inpatient management due to panel physician. Labs Test 06/28/20 12:46 06/28/20 13:40 White Blood Count 12.2 K/UL (4.8-10.8) Red Blood Count 4.91 M/UL (4.20-5.40) Hemoglobin 14.4 G/DL (12.0-16.0) Hematocrit 44.1 % (37.0-47.0) Mean Corpuscular Volume 90 FL (80-99) Mean Corpuscular Hemoglobin 29.4 PG (27.0-31.0) Mean Corpuscular Hemoglobin Concent 32.7 G/DL (32.0-36.0) Red Cell Distribution Width 11.9 % (11.6-14.8) Platelet Count 262 K/UL (150-450) Mean Platelet Volume 6.6 FL (6.5-10.1) Neutrophils (%) (Auto) 79.9 % (45.0-75.0) Lymphocytes (%) (Auto) 16.3 % (20.0-45.0) Monocytes (%) (Auto) 3.0 % (1.0-10.0) Eosinophils (%) (Auto) 0.1 % (0.0-3.0) Basophils (%) (Auto) 0.7 % (0.0-2.0) Sodium Level 142 MMOL/L (136-145) Potassium Level 3.8 MMOL/L (3.5-5.1) Chloride Level 107 MMOL/L (98-107) Carbon Dioxide Level 19 MMOL/L (21-32) Anion Gap 16 mmol/L (5-15) Blood Urea Nitrogen 11 mg/dL (7-18) Creatinine 1.2 MG/DL (0.55-1.30) Estimat Glomerular Filtration Rate 51.7 mL/min (>60) Glucose Level 191 MG/DL (74-106) Calcium Level 10.4 MG/DL (8.5-10.1) Magnesium Level 1.8 MG/DL (1.8-2.4) Total Bilirubin 0.4 MG/DL (0.2-1.0) Aspartate Amino Transf (AST/SGOT) 18 U/L (15-37) Alanine Aminotransferase (ALT/SGPT) 23 U/L (12-78) Alkaline Phosphatase 69 U/L (46-116) Total Protein 8.2 G/DL (6.4-8.2) Albumin 4.9 G/DL (3.4-5.0) Globulin 3.3 g/dL Albumin/Globulin Ratio 1.5 (1.0-2.7) Lipase 150 U/L (73-393) Urine Color Pale yellow Urine Appearance Slightly cloudy Urine pH 6 (4.5-8.0) Urine Specific [place] 1.015 (1.005-1.035) Urine Protein Negative (NEGATIVE) Urine Glucose (UA) 2+ (NEGATIVE) Urine Ketones 3+ (NEGATIVE) Urine Blood 1+ (NEGATIVE) Urine Nitrite Negative (NEGATIVE) Urine Bilirubin Negative (NEGATIVE) Urine Urobilinogen Normal MG/DL (0.0-1.0) Urine Leukocyte Esterase Negative (NEGATIVE) Urine RBC 2-4 /HPF (0 - 2) Urine WBC 0-2 /HPF (0 - 2) Urine Squamous Epithelial Cells Occasional /LPF Urine Bacteria Moderate /HPF (NONE) Urine Mucus Few /LPF (NONE/OCC) Urine HCG, Qualitative Negative (NEGATIVE) Urine Opiates Screen Negative (NEGATIVE) Urine Barbiturates Screen Negative (NEGATIVE) Phencyclidine (PCP) Screen Negative (NEGATIVE) Urine Amphetamines Screen Negative (NEGATIVE) Urine Benzodiazepines Screen Negative (NEGATIVE) Urine Cocaine Screen Negative (NEGATIVE) Urine Marijuana (THC) Screen Positive (NEGATIVE) (Sj Hill MD) EKG Diagnostic Results EKG Time: 12:53 EP Interpretation: Coral Doherty MD Rate: tachycardiac Rhythm: other - Sinus tachycardia ST Segments: no acute changes ASA given to the pt in ED: No (Coral Doherty M.D.) Last Vital Signs Date Time Temp Pulse Resp B/P (MAP) Pulse Ox O2 Delivery O2 Flow Rate FiO2 06/28/20 11:58 97.9 124 36 106/52 (70) 99 Room Air (Coral Doherty M.D.) Status: unchanged (Sj Hill MD) Disposition: ADMITTED INPATIENT Condition: Stable Scripts Famotidine* (Pepcid 20mg tablet*) 20 Mg Tablet 20 MG ORAL DAILY, #30 TAB 0 Refills Prov: Coral Doherty M.D. 06/28/20 Promethazine Hcl* (PHENERGAN*) 25 Mg Tablet 25 MG ORAL Q6H, #15 TAB 0 Refills Prov: Coral Doherty M.D. 06/28/20 Additional Instructions: The patient was provided with discharge instructions, notified to follow-up with a primary care doctor and or specialist in the next 24-48 hours, and to return to the ED if they have worsening of their symptoms. Please note that this report is being documented using visetoON technology. This can lead to erroneous entry secondary to incorrect interpretation by the dictating instrument. Coral Doherty M.D. Jun 28, 2020 12:22 Sj Hill MD Jun 28, 2020 17:10
[2020-06-28] MEDS ORDERED: Haloperidol 5mg/ml Inj IM ONE (12:30)
[2020-06-28] MEDS ORDERED: LORazepam Inj 2mg/ml 1ml IV ONE (12:30)
--- NOTE | 2020-06-28 12:40 | NUR ---
ED Nurse Note: DR. ROWE IS OK WITH THE IV PLACEMENT ONT HE PT.'S FOOT.
[2020-06-28] MEDS ORDERED: fentaNYL 100 mcg/2 mL IV ONE (13:00)
--- NOTE | 2020-06-28 13:00 | NUR ---
ED Nurse Note:urine sent to labs
[2020-06-28 13:17] LABS: BASOPHILS % (AUTO) 0.7 % (0.0-2.0); EOSINOPHILS % (AUTO) 0.1 % (0.0-3.0); HEMATOCRIT 44.1 % (37.0-47.0); HEMOGLOBIN 14.4 G/DL (12.0-16.0); LYMPHOCYTES % (AUTO) 16.3 % (20.0-45.0); MEAN CORPUSCULAR VOLUME 90 FL (80-99); NEUTROPHILS % (AUTO) 79.9 % (45.0-75.0); PLATELET COUNT 262 K/UL (150-450); RED BLOOD COUNT 4.91 M/UL (4.20-5.40); RED CELL DISTRIBUTION WIDTH 11.9 % (11.6-14.8); WHITE BLOOD COUNT 12.2 K/UL (4.8-10.8)
[2020-06-28 13:29] LABS: ANION GAP 16 mmol/L (5-15); BLOOD UREA NITROGEN 11 mg/dL (7-18); CALCIUM 10.4 MG/DL (8.5-10.1); CARBON DIOXIDE 19 MMOL/L (21-32); CHLORIDE 107 MMOL/L (98-107); CREATININE 1.2 MG/DL (0.55-1.30); POTASSIUM 3.8 MMOL/L (3.5-5.1); SODIUM 142 MMOL/L (136-145)
[2020-06-28 13:33] LABS: ALANINE AMINOTRANSFERASE 23 U/L (12-78); ALBUMIN 4.9 G/DL (3.4-5.0); ALBUMIN/GLOBULIN RATIO 1.5 (1.0-2.7); ALKALINE PHOSPHATASE 69 U/L (46-116); ASPARTATE AMINO TRANSFERASE 18 U/L (15-37); BILIRUBIN,TOTAL 0.4 MG/DL (0.2-1.0)
[2020-06-28 13:58] LABS: APPEARANCE,URINE SLIGHTLY CLOUDY; BILIRUBIN, URINE NEGATIVE (NEGATIVE); COLOR,URINE PALE YELLOW; GLUCOSE, URINE (UA) 2+ (NEGATIVE); KETONES,URINE 3+ (NEGATIVE); LEUKOCYTE ESTERASE ,URINE NEGATIVE (NEGATIVE); NITRITE,URINE NEGATIVE (NEGATIVE); PH,URINE 6 (4.5-8.0); PROTEIN,URINE NEGATIVE (NEGATIVE); UROBILINOGEN,URINE NORMAL MG/DL (0.0-1.0)
[2020-06-28] MEDS ORDERED: PHENERGAN25 M1 ORAL (14:01)
[2020-06-28] MEDS ORDERED: FAMOTIDINE20 MG ORAL (14:01)
[2020-06-28] MEDS: Dextrose 5%/Lactated Ringer's 1,000 ML IV SCH ×2 (15:22→19:15)
--- NOTE | 2020-06-28 15:55 | NUR ---
ED Nurse Note:pt. tryed oral challenge but could't tolerate et, still c/o nausea, vss, continue IV hydration
[2020-06-28 15:59] VITALS: BP 154/80
[2020-06-28] MEDS ORDERED: Capsaicin 0.075% Cream TOPIC ONE (17:30)
[2020-06-28 18:01] VITALS: BP 155/90
--- NOTE | 2020-06-28 18:10 | NUR ---
ED Nurse Note:called report to 3 asihsh- spoke to Glen COLLINS
[2020-06-28 18:30] VITALS: BP 110/69
--- NOTE | 2020-06-28 18:30 | NUR ---
NURSE NOTES: Handoff received from Marilou RN. Patient arrived safely to 3E from ER via patient bed, reporting 8/10 abdominal pain and vomiting. Left foot IV is patent and asymptomatic, running IVF as ordered. Belongings were verified and belongings list was signed. Bed is low and locked, side rails up x2, call light is within reach.
--- NOTE | 2020-06-28 19:05 | NUR ---
HAND-OFF: Report given to Yoon COLLINS.
--- NOTE | 2020-06-28 19:20 | NUR ---
NURSE NOTES: Patient in bed, alert and oriented x4, ambulatory. With complaints of nausea, vomiting, abdominal pain and anxiety. With IV access on the left foot. Instructed to use call light for assistance. Bed in lowest and lock engaged. Will contact MD for admission orders.
[2020-06-28 20:00] VITALS: BP 159/107
--- NOTE | 2020-06-28 21:30 | NUR ---
NURSE NOTES: Patient was very anxious and restless. Wanted to get medicated for pain, anxiety and nausea. Obtained admission orders from Dr. Capone, orders in and carried out. Clairefran given as ordered.
[2020-06-28] MEDS: Morphine Sulfate 2mg/ml Inj(IV/IM USE ONLY) IVP PRN (21:36)
--- NOTE | 2020-06-28 22:30 | NUR ---
NURSE NOTES: Spoke with WALDO Sanchez and obtained order for Morphine IV. Given as ordered. Spoke with Dr. Elise for patient's concern. MD was also aware for patient's request of Ativan IV. Discussed with patient regarding risks and benefits. Patient agreed to take Ativan orally Will continue to monitor..
[2020-06-28] MEDS: LORazepam 1mg tab ORAL PRN (22:38)
[2020-06-29] VITALS (9 sets, daily range): BP systolic 129–190; BP diastolic 67–118
[2020-06-29] MEDS: Morphine Sulfate 2mg/ml Inj(IV/IM USE ONLY) IVP PRN ×3 (03:52→17:24)
[2020-06-29] MEDS: LORazepam 1mg tab ORAL PRN (04:50)
[2020-06-29 05:57] LABS: BASOPHILS % (AUTO) 0.3 % (0.0-2.0); HEMATOCRIT 39.4 % (37.0-47.0); HEMOGLOBIN 13.1 G/DL (12.0-16.0); LYMPHOCYTES % (AUTO) 12.3 % (20.0-45.0); MEAN CORPUSCULAR VOLUME 88 FL (80-99); MONOCYTES % (AUTO) 5.7 % (1.0-10.0); NEUTROPHILS % (AUTO) 81.7 % (45.0-75.0); PLATELET COUNT 265 K/UL (150-450); RED BLOOD COUNT 4.46 M/UL (4.20-5.40); RED CELL DISTRIBUTION WIDTH 11.9 % (11.6-14.8); WHITE BLOOD COUNT 14.1 K/UL (4.8-10.8)
[2020-06-29 06:09] LABS: ALANINE AMINOTRANSFERASE 21 U/L (12-78); ALBUMIN 4.5 G/DL (3.4-5.0); ALBUMIN/GLOBULIN RATIO 1.3 (1.0-2.7); ALKALINE PHOSPHATASE 63 U/L (46-116); ANION GAP 17 mmol/L (5-15); ASPARTATE AMINO TRANSFERASE 18 U/L (15-37); BILIRUBIN,TOTAL 0.5 MG/DL (0.2-1.0); BLOOD UREA NITROGEN 10 mg/dL (7-18); CALCIUM 9.1 MG/DL (8.5-10.1); CARBON DIOXIDE 21 MMOL/L (21-32); CHLORIDE 118 MMOL/L (98-107); CREATININE 0.8 MG/DL (0.55-1.30); POTASSIUM 3.4 MMOL/L (3.5-5.1); SODIUM 156 MMOL/L (136-145)
--- NOTE | 2020-06-29 07:18 | NUR ---
NURSE NOTES: Report received from Francesca COLLINS, rounds made. Patient sleeping. No distress on RA, respirations even/unlabored. IVF infusing at 60 ml/hr to left foot, site asymptomatic. Call light in reach, bed in lowest position, will continue to monitor.
--- NOTE | 2020-06-29 07:32 | NUR ---
HAND-OFF: Report given to DENNIS Cartagena.
--- NOTE | 2020-06-29 08:24 | NUR ---
NURSE NOTES: Dr. Capone notified of labs and vitals for this AM, orders to consult Dr. Desai and Dr. Leon for further orders. Will notify. Addendum: 06/29/20 at 0836 by Mitzi Garcia RN Patient instructed on SCD use, verbalized understanding. Bilateral SCDS applied.
--- NOTE | 2020-06-29 10:01 | Consultation ---
History of Present Illness General Date patient seen: Jun 29, 2020 Chief Complaint: Present Illness Allergies: Coded Allergies: SULFA (SULFONAMIDE ANTIBIOTICS) (Verified Allergy, Unknown, 02/23/11) Medication History Scheduled Famotidine* (Pepcid 20mg tablet*), 20 MG ORAL DAILY Lorazepam* (Ativan*), 1 MG ORAL THREE TIMES A DAY, (Reported) Promethazine Hcl* (Phenergan*), 25 MG ORAL Q6H Scheduled PRN Ondansetron Odt* (Zofran Odt*), 8 MG ORAL Q6H PRN for Nausea & Vomiting Patient History Healthcare decision maker Resuscitation status Advanced Directive on File Physical Exam Last 24 Hour Vital Signs Date Time Temp Pulse Resp B/P (MAP) Pulse Ox O2 Delivery O2 Flow Rate FiO2 06/29/20 08:11 99.2 113 21 146/92 (110) 97 06/29/20 04:54 97.2 79 20 129/79 (96) 98 06/29/20 00:00 98.1 86 18 134/82 (99) 98 06/28/20 21:00 Room Air 06/28/20 20:00 22 159/107 (124) 06/28/20 18:37 Room Air 06/28/20 18:30 97.4 95 20 110/69 (83) 99 06/28/20 18:08 97.9 74 14 155/90 99 Room Air 06/28/20 18:01 74 14 155/90 99 Room Air 06/28/20 15:59 69 14 154/80 99 Room Air 06/28/20 13:56 97.9 06/28/20 12:11 121 26 Room Air 06/28/20 12:11 97.9 121 26 102/56 99 Room Air 06/28/20 11:58 97.9 124 36 106/52 (70) 99 Room Air Intake and Output 06/28/20 06/29/20 19:00 07:00 Intake Total 480 ml Output Total 100 ml Balance -100 ml 480 ml Intake IV Total 480 ml Output Emesis 100 ml # Voids 2 Laboratory Tests Test 06/28/20 12:46 06/28/20 13:40 06/29/20 05:00 White Blood Count 12.2 K/UL (4.8-10.8) H 14.1 K/UL (4.8-10.8) H Red Blood Count 4.91 M/UL (4.20-5.40) 4.46 M/UL (4.20-5.40) Hemoglobin 14.4 G/DL (12.0-16.0) 13.1 G/DL (12.0-16.0) Hematocrit 44.1 % (37.0-47.0) 39.4 % (37.0-47.0) Mean Corpuscular Volume 90 FL (80-99) 88 FL (80-99) Mean Corpuscular Hemoglobin 29.4 PG (27.0-31.0) 29.4 PG (27.0-31.0) Mean Corpuscular Hemoglobin Concent 32.7 G/DL (32.0-36.0) 33.3 G/DL (32.0-36.0) Red Cell Distribution Width 11.9 % (11.6-14.8) 11.9 % (11.6-14.8) Platelet Count 262 K/UL (150-450) 265 K/UL (150-450) Mean Platelet Volume 6.6 FL (6.5-10.1) 7.0 FL (6.5-10.1) Neutrophils (%) (Auto) 79.9 % (45.0-75.0) H 81.7 % (45.0-75.0) H Lymphocytes (%) (Auto) 16.3 % (20.0-45.0) L 12.3 % (20.0-45.0) L Monocytes (%) (Auto) 3.0 % (1.0-10.0) 5.7 % (1.0-10.0) Eosinophils (%) (Auto) 0.1 % (0.0-3.0) 0.0 % (0.0-3.0) Basophils (%) (Auto) 0.7 % (0.0-2.0) 0.3 % (0.0-2.0) Sodium Level 142 MMOL/L (136-145) 156 MMOL/L (136-145) #H Potassium Level 3.8 MMOL/L (3.5-5.1) 3.4 MMOL/L (3.5-5.1) L Chloride Level 107 MMOL/L (98-107) 118 MMOL/L (98-107) H Carbon Dioxide Level 19 MMOL/L (21-32) L 21 MMOL/L (21-32) Anion Gap 16 mmol/L (5-15) H 17 mmol/L (5-15) H Blood Urea Nitrogen 11 mg/dL (7-18) 10 mg/dL (7-18) Creatinine 1.2 MG/DL (0.55-1.30) 0.8 MG/DL (0.55-1.30) Estimat Glomerular Filtration Rate 51.7 mL/min (>60) > 60 mL/min (>60) Glucose Level 191 MG/DL (74-106) H 134 MG/DL (74-106) H Calcium Level 10.4 MG/DL (8.5-10.1) H 9.1 MG/DL (8.5-10.1) Magnesium Level 1.8 MG/DL (1.8-2.4) Total Bilirubin 0.4 MG/DL (0.2-1.0) 0.5 MG/DL (0.2-1.0) Aspartate Amino Transf (AST/SGOT) 18 U/L (15-37) 18 U/L (15-37) Alanine Aminotransferase (ALT/SGPT) 23 U/L (12-78) 21 U/L (12-78) Alkaline Phosphatase 69 U/L (46-116) 63 U/L (46-116) Total Protein 8.2 G/DL (6.4-8.2) 7.9 G/DL (6.4-8.2) Albumin 4.9 G/DL (3.4-5.0) 4.5 G/DL (3.4-5.0) Globulin 3.3 g/dL 3.4 g/dL Albumin/Globulin Ratio 1.5 (1.0-2.7) 1.3 (1.0-2.7) Lipase 150 U/L (73-393) Urine Color Pale yellow Urine Appearance Slightly cloudy Urine pH 6 (4.5-8.0) Urine Specific [place] 1.015 (1.005-1.035) Urine Protein Negative (NEGATIVE) Urine Glucose (UA) 2+ (NEGATIVE) H Urine Ketones 3+ (NEGATIVE) H Urine Blood 1+ (NEGATIVE) H Urine Nitrite Negative (NEGATIVE) Urine Bilirubin Negative (NEGATIVE) Urine Urobilinogen Normal MG/DL (0.0-1.0) Urine Leukocyte Esterase Negative (NEGATIVE) Urine RBC 2-4 /HPF (0 - 2) H Urine WBC 0-2 /HPF (0 - 2) Urine Squamous Epithelial Cells Occasional /LPF Urine Bacteria Moderate /HPF (NONE) H Urine Mucus Few /LPF (NONE/OCC) H Urine HCG, Qualitative Negative (NEGATIVE) Urine Opiates Screen Negative (NEGATIVE) Urine Barbiturates Screen Negative (NEGATIVE) Phencyclidine (PCP) Screen Negative (NEGATIVE) Urine Amphetamines Screen Negative (NEGATIVE) Urine Benzodiazepines Screen Negative (NEGATIVE) Urine Cocaine Screen Negative (NEGATIVE) Urine Marijuana (THC) Screen Positive (NEGATIVE) H Microbiology Date/Time Source Procedure Growth Status 06/28/20 13:40 Urine,Clean Catch Urine Culture - Preliminary NO GROWTH Resulted Height (Feet): 5 Height (Inches): 8.00 Weight (Pounds): 167 Medications Current Medications Medications (Trade) Dose Ordered Sig/Shanta Route PRN Reason Start Time Stop Time Status Last Admin Dose Admin Acetaminophen (Tylenol) 650 mg Q4H PRN ORAL Mild Pain (1-3)/ Temp 100.5 06/28/20 20:45 07/28/20 20:44 Lorazepam (Ativan) 2 mg Q6H PRN ORAL For Anxiety 06/28/20 21:30 07/05/20 21:29 06/29/20 04:50 Mirtazapine (Remeron) 7.5 mg BEDTIME ORAL 06/29/20 21:00 09/27/20 20:59 Morphine Sulfate (Morphine Sulfate) 2 mg Q6H PRN IVP Severe Pain (Pain Scale 7-10) 06/28/20 21:20 07/05/20 21:19 06/29/20 03:52 Ondansetron HCl (Zofran) 4 mg Q6H PRN IVP Nausea & Vomiting 06/28/20 20:00 07/28/20 19:59 06/29/20 03:51 Sodium Chloride 1,000 ml @ 60 mls/hr [id number] IV 06/28/20 20:45 07/28/20 20:44 06/28/20 21:36 Assessment/Plan Assessment/Plan: (1) Abdominal pain (2) Cyclical vomiting syndrome Seen dictated Viet Sanchez Jun 29, 2020 10:01
--- NOTE | 2020-06-29 11:18 | NUR ---
NURSE NOTES: Message left for Dr. Leon at his office regarding patient AM and current vitals, patient name and call back number provided. Spoke to Dr. Desai at bedside regarding patient's labs.
--- NOTE | 2020-06-29 11:40 | Consultation ---
Consult Note Consult Note I am asked to evaluate the patient at the request of Dr. Enriquez for fluid and electrolyte management. Patient known to me from her previous admissions had multiple ER visits here at [facility] Patient interviewed Patient agitated Poor historian Asking for intravenous Ativan ER note: Chief Complaint: Vomiting Patient is a 35-year-old female past medical history of cyclical vomiting due to THC use who presents to the ER complaining of vomiting since 7 AM this morning. Patient complains of epigastric pain. She denies any fever or chills. She denies any diarrhea. She denies any chest pain or shortness of breath. She denies any dysuria or hematuria. Coded Allergies: SULFA (SULFONAMIDE ANTIBIOTICS) (Verified Allergy, Unknown, 02/23/11) COVID-19 Screening Contact w/high risk pt: No Recent Travel to affected area: No Experienced COVID-19 symptoms?: Yes COVID-19 Testing performed BRONZE CHASER: No Last Menstrual Period: none- depo Now: No PHYSICAL EXAMINATION: VITAL SIGNS: Temperature is 97.2, pulse 99, blood pressure 135/81. GENERAL APPEARANCE: No acute distress. Seems to have normal weight. HEAD AND NECK: [place] conjunctivae. No oral lesion. HEART: Tachycardic. LUNGS: Clear. ABDOMEN: Soft. Tender in the upper abdomen. EXTREMITIES: No edema. NEUROLOGIC: Awake, alert, and oriented x3. LABORATORY AND DIAGNOSTIC DATA: WBC today is 12, hemoglobin 13.3, hematocrit 39.4, and platelets 247,000. Sodium is 141, potassium 2.7, chloride 103, bicarb 24, BUN 9, creatinine 0.9. Glucose is 114. Urine, THC was positive. UA showed glucose 2+, ketones 2+, blood 1+, wbc was 0 to 2. COVID-19 test was negative. Urine culture showed mixed gram-positive organisms. Assessment/Plan Cyclical vomiting syndrome Narcotic dependency Marijuana abuse Sulfa allergy Electrolytes imbalance N.p.o. IV hydration Electrolyte supplement IV Reglan Continue as per GI/pain management advice I spent an additional 36 minutes on review of medical records including prior hospital records,consult notes, progress notes, procedures ,imaging labs, hemodynamics, and other clinical documentation. Over 35 min Jadon Olivier MD Jun 29, 2020 11:40
[2020-06-29] MEDS: D5 1/2NS w/KCl 40meq 1000ml 1,000 ML IV SCH (12:43)
[2020-06-29] MEDS: Metoclopramide 10mg/2ml Inj IVP SCH ×3 (12:43→23:31)
--- NOTE | 2020-06-29 13:33 | NUR ---
MASH FILTER OPERATOR NOTE SW met w/ pt to assess hospice social worker concern. PT resides w/ her boyfriend at [address], [place] [address]. Pt's emergency contact is her boyfriend, Walt Starr [phone]. PT does not have any family emergency contact. Pt has hx of Anxiety and is asking for Ativan. Per pt, her nurse is already aware of such request. Pt does not receive mental health services. Pt declined mental health resource. Pt does not share any hospice social worker concern. SW to F/U as needed.
--- NOTE | 2020-06-29 13:46 | NUR ---
NURSE NOTES: Patient anxious, requesting Ativan in IV form. Dr. Capone and Dr. Elise notified. BP readings reviewed with Dr. Elise. Orders from Dr. Elise for Ativan 1 mg IV x1 dose. Patient updated, verbalized understanding.
[2020-06-29] MEDS ORDERED: LORazepam Inj 2mg/ml 1ml IV ONE (14:00)
--- NOTE | 2020-06-29 14:15 | General Progress Note ---
Assessment/Plan Problem List: (1) Cyclic vomiting syndrome ICD Codes: G43.A0 - Cyclical vomiting, not intractable SNOMED: 27391588 (2) Cannabis abuse ICD Codes: F12.10 - Cannabis abuse, uncomplicated SNOMED: 87376603 (3) Dehydration ICD Codes: E86.0 - Dehydration SNOMED: 61468344 (4) Intractable nausea and vomiting ICD Codes: R11.2 - Nausea with vomiting, unspecified SNOMED: 127782214, 168564543 Assessment/Plan: start clears ivf nausea meds avoid THC add elavil 50 mg Subjective ROS Limited/Unobtainable: Yes Allergies: Coded Allergies: SULFA (SULFONAMIDE ANTIBIOTICS) (Verified Allergy, Unknown, 02/23/11) Objective Last 24 Hour Vital Signs Date Time Temp Pulse Resp B/P (MAP) Pulse Ox O2 Delivery O2 Flow Rate FiO2 06/29/20 13:07 98.0 79 18 153/98 (116) 97 06/29/20 11:00 96.1 77 22 158/102 (120) 99 06/29/20 09:00 Room Air 06/29/20 08:11 99.2 113 21 146/92 (110) 97 06/29/20 04:54 97.2 79 20 129/79 (96) 98 06/29/20 00:00 98.1 86 18 134/82 (99) 98 06/28/20 21:00 Room Air 06/28/20 20:00 22 159/107 (124) 06/28/20 18:37 Room Air 06/28/20 18:30 97.4 95 20 110/69 (83) 99 06/28/20 18:08 97.9 74 14 155/90 99 Room Air 06/28/20 18:01 74 14 155/90 99 Room Air 06/28/20 15:59 69 14 154/80 99 Room Air Intake and Output 06/28/20 06/29/20 19:00 07:00 Intake Total 480 ml Output Total 100 ml Balance -100 ml 480 ml Intake IV Total 480 ml Output Emesis 100 ml # Voids 2 Laboratory Tests 06/29/20 05:00: White Blood Count 14.1H, Red Blood Count 4.46, Hemoglobin 13.1, Hematocrit 39.4 , Mean Corpuscular Volume 88, Mean Corpuscular Hemoglobin 29.4, Mean Corpuscular Hemoglobin Concent 33.3, Red Cell Distribution Width 11.9, Platelet Count 265, Mean Platelet Volume 7.0, Neutrophils (%) (Auto) 81.7H, Lymphocytes ( %) (Auto) 12.3L, Monocytes (%) (Auto) 5.7, Eosinophils (%) (Auto) 0.0, Basophils (%) (Auto) 0.3, Sodium Level 156#H, Potassium Level 3.4L, Chloride Level 118H, Carbon Dioxide Level 21, Anion Gap 17H, Blood Urea Nitrogen 10, Creatinine 0.8, Estimat Glomerular Filtration Rate > 60, Glucose Level 134H, Calcium Level 9.1, Total Bilirubin 0.5, Aspartate Amino Transf (AST/SGOT) 18, Alanine Aminotransferase (ALT/SGPT) 21, Alkaline Phosphatase 63, Total Protein 7.9, Albumin 4.5, Globulin 3.4, Albumin/Globulin Ratio 1.3 Height (Feet): 5 Height (Inches): 8.00 Weight (Pounds): 167 General Appearance: no apparent distress EENT: normal ENT inspection Neck: supple Cardiovascular: normal rate Respiratory/Chest: decreased breath sounds Abdomen: normal bowel sounds, non tender, soft Extremities: non-tender Ferny Wood MD Jun 29, 2020 14:15
--- NOTE | 2020-06-29 16:31 | NUR ---
CASE MANAGEMENT:INITIAL REVIEW 35YR OLD FEMALE FROM HOME CC:VOMITING SI:LEUKOCYTOSIS . INTRACTABLE CYCLIC VOMITING . PROLONG QT INTERVAL . HYPERCALCEMIA CANNABIS ABUSE 97.8 124 36 106/52 99% ON RA WBC 12.2 CO2 19 ANION GAP 16 BG 191 CA+ 10.4 MARIJUANA + IS:IVF NS BOLUS X3 IV D5/LR X1 IV MAGNESIUM SULFATE X1 IM PHENERGAN X1 IV LORAZEPAM X1 IM HALDOL X1 IV PEPCID X1 IV FENTANYL X1 \: 3E MED SURG UNIT DCP: CONTROL VOMITING CONT HYDRATE NPO CASE MANAGEMENT:REVIEW 06/29/20 SI:HYPERNATREMIA .LEUKOCYTOSIS . INTRACTABLE CYCLIC VOMITING . PROLONG QT INTERVAL . CANNABIS ABUSE 97.9 119 18 156/109 9% ON RA WBC 14.1 NA+ 156 K+ 3.4 CL 118 ANION GAP 17 BG 134 IS:IV D5@75ML/HR IV REGLAN Q6HR X4 DOSES IV ZOFRAN Q6HR/PRN IV MORPHINE SULFATE Q6HR/PRN IV ATIVAN Q6HR/PRN \: 3E MED SURG UNIT DCP: CONTROL VOMITING CONT HYDRATE START ON CLEAR EDUCATION ON AVOID THC CONT NAUSEA MED
--- NOTE | 2020-06-29 16:48 | NUR ---
*-* INSURANCE *-* UPDATED CLINICALS AND REVIEWS HAVE BEEN FAXED TO: [employer] T: [phone] ID#[id number] Addendum: 06/30/20 at 1156 by DOMINIQUE RUTHERFORD CM Ref# [id number] Addendum: 06/30/20 at 1630 by DOMINIQUE RUTHERFORD CM AUTHORIZATION RECEIVED AUTH VIA FAX FROM [employer] AUTH/PRE CERT NUMBER: [id number] AUTH INP SERV: [id number] AUTH VALID FROM/TO: 06/28/20 TO 06/30/20 HARD COPY FAXED TO BUSINESS OFFICE AND ADMITTING.
--- NOTE | 2020-06-29 17:01 | NUR ---
NURSE NOTES: Seen and evaluated by and hailee Person IV order received. Order read back and carried out.
--- NOTE | 2020-06-29 19:31 | NUR ---
HAND-OFF: Report given to Gho RN, rounds made, patient stable.
--- NOTE | 2020-06-29 19:35 | NUR ---
NURSE NOTES: Receive a report from DENNIS Cartagena. Round is done. Pt is awake and alert but still noted nausea without vomiting. Will provide antiemesis medication as ordered. Denies pain. IV is running on left foot. Call light within reach. Provide fall precautions. Will continue to monitor.
--- NOTE | 2020-06-29 19:45 | NUR ---
NURSE NOTES: Given Zofran 4mg IVP and provide ice chips. Will continue to monitor.
--- NOTE | 2020-06-29 20:15 | NUR ---
NURSE NOTES: Nausea sense got a little bit better. BP checked earlier was 190/112mmHg and rechecked as 172/118mmHg. No SANCHEZ noted. Call Dr. Meadows and left a message. Waiting for a call back. Will continue to monitor.
--- NOTE | 2020-06-29 20:30 | NUR ---
NURSE NOTES: Receive a call back from Dr. Leon. Receive orders for HTN and Covid rapid swab as well. Read back orders. Order noted and carried out.
[2020-06-29] MEDS: dilTIAZem HCl 30mg tab ORAL SCH (21:25)
--- NOTE | 2020-06-29 21:30 | NUR ---
NURSE NOTES: COVID-19 rapid swap done. BP: 159/97mmHg. Given ordered HTN medication. Will continue to monitor. Addendum: 06/29/20 at 2249 by Donna Keys RN Explain to pt for test reason. Remain door closed.
[2020-06-29] MEDS: LORazepam Inj 2mg/ml 1ml IV PRN (22:28)
--- NOTE | 2020-06-29 22:45 | Consultation ---
DATE OF CONSULTATION: 06/29/2020 PAIN MANAGEMENT CONSULTATION CONSULTING PHYSICIAN: Milla Minor MD. REFERRING PHYSICIAN: Haresh Capone MD. PHYSICIAN SALES ORDER SPECIALIST: ALIX Wilkerson. CHIEF COMPLAINT: Abdominal pain. HISTORY OF PRESENT ILLNESS: This is a 35-year-old female is being seen on the Med/Surg floor of [facility] for initial pain management consultation. The patient was admitted under the care of Dr. Capone due to abdominal pain, nausea and vomiting. She was admitted to the hospital, found to have cyclical vomiting syndrome due to cannabis use as well as alcohol use and is in severe pain rating as 10/10, describing the pain as a sharp pain in her abdominal area, worsens with vomiting. Due to this, the patient was started on morphine 2 mg IV every 6 hours as needed for pain which has been adequately relieving her pain to tolerable level. We were consulted so the patient would have adequate pain control while here in the hospital. PAST MEDICAL HISTORY: Anxiety. PAST SURGICAL HISTORY: Denies. SOCIAL HISTORY: Drinks alcohol. Smokes marijuana. Denies IV drug abuse. ALLERGIES: Sulfa. MEDICATIONS: Famotidine, Ativan, Zofran, Phenergan. REVIEW OF SYSTEMS: Denies rash, fever, chills, sweating, dizziness, drowsiness, blurred vision, sore throat, or change in weight. No shortness of breath or chest pain. No nausea, vomiting, diarrhea, or blood in the stool or urine. No dysuria. PHYSICAL EXAMINATION: GENERAL: Alert, awake, and oriented. VITAL SIGNS: Blood pressure 146/92, heart rate 139, O2 saturation 93%, respiratory rate 21, temperature 99.3 degrees Fahrenheit. HEENT: PERRLA. NECK: Range of motion is full in all directions. No tenderness to paracervical muscles. No adenopathy. LUNGS: Decreased breath sounds bilaterally. HEART: Regular. ABDOMEN: Tenderness to palpation. BACK: Range of motion is decreased in flexion and extension. EXTREMITIES: Upper and lower extremity range of motion is full in direction. No cyanosis. No clubbing. No edema. Sensory is intact. Reflexes are not obtainable. No adenopathy. ASSESSMENT AND PLAN: This is a 35-year-old female with of abdominal pain, cyclical vomiting syndrome. The patient will be continued on morphine as needed. The patient was discussed with Dr. Minor and Dr. Minor concurred. Milla Minor M.D. ALIX Wilkerson DR: Jeannine JOB#: [id number] CC: TERESA
--- NOTE | 2020-06-29 22:45 | NUR ---
NURSE NOTES: Receive a call from lab that COVID-19 swab came out negative.
--- NOTE | 2020-06-29 23:56 | Cardiology Progress Note ---
Assessment/Plan Assessment/Plan The patient is seen and examined, full consult note is dictated. Objective Last 24 Hour Vital Signs Date Time Temp Pulse Resp B/P (MAP) Pulse Ox O2 Delivery O2 Flow Rate FiO2 06/29/20 21:25 103 159/97 (117) 06/29/20 21:25 103 159/67 06/29/20 21:00 Room Air 06/29/20 20:10 172/118 (136) 06/29/20 19:50 97.0 91 20 190/112 (138) 96 06/29/20 16:08 97.9 119 18 156/109 (125) 96 06/29/20 13:07 98.0 79 18 153/98 (116) 97 06/29/20 11:00 96.1 77 22 158/102 (120) 99 06/29/20 09:00 Room Air 06/29/20 08:11 99.2 113 21 146/92 (110) 97 06/29/20 04:54 97.2 79 20 129/79 (96) 98 06/29/20 00:00 98.1 86 18 134/82 (99) 98 Intake and Output 06/28/20 06/29/20 19:00 07:00 Intake Total 540 ml Output Total 100 ml Balance -100 ml 540 ml Intake IV Total 540 ml Output Emesis 100 ml # Voids 2 Laboratory Tests Test 06/29/20 05:00 White Blood Count 14.1 K/UL (4.8-10.8) H Red Blood Count 4.46 M/UL (4.20-5.40) Hemoglobin 13.1 G/DL (12.0-16.0) Hematocrit 39.4 % (37.0-47.0) Mean Corpuscular Volume 88 FL (80-99) Mean Corpuscular Hemoglobin 29.4 PG (27.0-31.0) Mean Corpuscular Hemoglobin Concent 33.3 G/DL (32.0-36.0) Red Cell Distribution Width 11.9 % (11.6-14.8) Platelet Count 265 K/UL (150-450) Mean Platelet Volume 7.0 FL (6.5-10.1) Neutrophils (%) (Auto) 81.7 % (45.0-75.0) H Lymphocytes (%) (Auto) 12.3 % (20.0-45.0) L Monocytes (%) (Auto) 5.7 % (1.0-10.0) Eosinophils (%) (Auto) 0.0 % (0.0-3.0) Basophils (%) (Auto) 0.3 % (0.0-2.0) Sodium Level 156 MMOL/L (136-145) #H Potassium Level 3.4 MMOL/L (3.5-5.1) L Chloride Level 118 MMOL/L (98-107) H Carbon Dioxide Level 21 MMOL/L (21-32) Anion Gap 17 mmol/L (5-15) H Blood Urea Nitrogen 10 mg/dL (7-18) Creatinine 0.8 MG/DL (0.55-1.30) Estimat Glomerular Filtration Rate > 60 mL/min (>60) Glucose Level 134 MG/DL (74-106) H Calcium Level 9.1 MG/DL (8.5-10.1) Total Bilirubin 0.5 MG/DL (0.2-1.0) Aspartate Amino Transf (AST/SGOT) 18 U/L (15-37) Alanine Aminotransferase (ALT/SGPT) 21 U/L (12-78) Alkaline Phosphatase 63 U/L (46-116) Total Protein 7.9 G/DL (6.4-8.2) Albumin 4.5 G/DL (3.4-5.0) Globulin 3.4 g/dL Albumin/Globulin Ratio 1.3 (1.0-2.7) Microbiology Date/Time Source Procedure Growth Status 06/29/20 21:30 Nasopharynx SARS-CoV-2 RdRp Gene Assay - Final Complete 06/28/20 13:40 Urine,Clean Catch Urine Culture - Preliminary NO GROWTH Resulted Slim Leon MD Jun 29, 2020 23:56
[2020-06-30] VITALS (7 sets, daily range): BP systolic 129–185; BP diastolic 79–116
[2020-06-30] MEDS: Morphine Sulfate 2mg/ml Inj(IV/IM USE ONLY) IVP PRN ×4 (00:11→20:18)
--- NOTE | 2020-06-30 01:15 | History and Physical Report ---
DATE OF ADMISSION: 06/28/2020 HISTORY OF PRESENT ILLNESS: The patient has multiple admissions for the same issue, which is marijuana related possible hyperemesis. The patient again has been having abdominal pain and vomiting intractable for 3 days, abdominal pain for two days, has history of marijuana use and CBD. The patient also acidotic, most likely due to vomiting. The patient is also admitted for tachycardia, dehydration, abdominal pain and vomiting. The patient denies rectal bleeding. Denies shortness of breath. Denies cough. Denies fever or chills. PAST MEDICAL HISTORY: Significant for anxiety, GERD intractable secondary to vomiting, cannabis use, ovarian cyst, history of the past. PAST SURGICAL HISTORY: None. FAMILY HISTORY: Noncontributory. SOCIAL HISTORY: She has history of marijuana use. Denies history of alcohol abuse. Denies history of smoking. ALLERGIES: Sulfa. MEDICATIONS: Pepcid, lorazepam, Zofran and Phenergan p.r.n. REVIEW OF SYSTEMS: HEENT: Denies headaches. RESPIRATORY: Denies shortness of breath. Denies cough. CARDIOVASCULAR: Denies chest pain or orthopnea. GASTROINTESTINAL: Reports abdominal pain, vomiting, intractable vomiting for 3 days. EXTREMITIES: Denies pain in the extremities. CENTRAL NERVOUS SYSTEM: Denies change in speech pattern. Feels weak. PHYSICAL EXAMINATION: VITAL SIGNS: Temperature is 98, pulse is 79, blood pressure 152/98. HEENT: PERRLA. NECK: Supple. No lymphadenopathy. CHEST: Clear to auscultation. CARDIOVASCULAR: Regular rate and rhythm. No murmurs or extra sounds. GASTROINTESTINAL: Soft. Positive bowel sounds. Mild epigastric tenderness. No rebound. No organomegaly. ABDOMEN: Soft. EXTREMITIES: No edema. Moves all four extremities. Sensory intact. Reflexes in both sides. LABORATORY DATA: WBC of 12.2, hemoglobin of 14.4 and platelets of 262. Sodium 142, potassium of 3.8, BUN of 11, creatinine of 1.2, and glucose of 192. ASSESSMENT AND PLAN: Abdominal pain could be due to cannabis use. Have also tachycardia. I have asked Dr. Leon, Dr. Elise as well as Dr. Minor and Dr. Nicholas Linn, Dr. Wood see the patient to help with the management of abdominal pain to see could be causing the diarrhea and also to help with the dehydration. The patient is on acidosis. The patient needs hydration and tachycardia is most likely due to dehydration due to cyclical vomiting. The patient might also get Haldol. Haresh Capone M.D. DR: Arnulfo JOB#: [id number] CC:
[2020-06-30] MEDS: D5 1/2NS w/KCl 40meq 1000ml 1,000 ML IV SCH (02:07)
--- NOTE | 2020-06-30 03:15 | Consultation ---
DATE OF CONSULTATION: 06/29/2020 CONSULTING PHYSICIAN: Jonathan Elise MD. HISTORY OF PRESENT ILLNESS: This is a 35-year-old female with history of anxiety who has been admitted to the hospital due to cyclical vomiting due to . Upon evaluation, patient stated that she is not using regularly and she is using it occasionally. She only would like to take Ativan and Zofran IV. She stated p.o. Ativan makes her nauseous. She is reluctant to take any other medication. I have also prescribed her Remeron. PAST PSYCHIATRIC HISTORY: Anxiety, insomnia. She self-medicates self with cannabis. PAST MEDICAL HISTORY: Significant for ovarian cyst. ALLERGIES: Sulfa. SUBSTANCE USE HISTORY: Cannabis abuse. MENTAL STATUS EXAMINATION: Alert and oriented times self, place, situation, and date. Mood is anxious and dysphoric. Affect is constricted, congruent with mood. Thought process is concrete. Thought content, there is no suicidal or homicidal ideation. Cognition is intact. Insight and judgment is fair. ASSESSMENT: Milo I Anxiety disorder. Cannabis abuse versus dependence. Milo II Deferred. Milo III As above. Milo IV Low. Milo V 50. PLAN: 1. Remeron 7.5 at bedtime. 2. Ativan IV. 3. Provide the patient with reality orientation and supportive therapy. Jonathan Elise M.D. DR: MARY JOB#: [id number] CC:
--- NOTE | 2020-06-30 04:15 | NUR ---
NURSE NOTES: Given Zofran 4mg IVS earlier but still pt feels nauseated and noted gastric juice vomitus. BP checked as 185/116mmHg without SANCHEZ and W[place]: 111bpm without palpitation. Provide prn clonidine 0.1mg 1t po as ordered. Will continue to follow up.
[2020-06-30] MEDS: LORazepam Inj 2mg/ml 1ml IV PRN ×2 (04:29→22:07)
[2020-06-30] MEDS: dilTIAZem HCl 30mg tab ORAL SCH ×3 (05:46→21:16)
[2020-06-30] MEDS: Metoclopramide 10mg/2ml Inj IVP SCH (05:46)
[2020-06-30 05:57] LABS: BASOPHILS % (AUTO) 0.6 % (0.0-2.0); HEMATOCRIT 39.4 % (37.0-47.0); HEMOGLOBIN 13.3 G/DL (12.0-16.0); LYMPHOCYTES % (AUTO) 21.9 % (20.0-45.0); MEAN CORPUSCULAR VOLUME 88 FL (80-99); MONOCYTES % (AUTO) 7.2 % (1.0-10.0); NEUTROPHILS % (AUTO) 70.3 % (45.0-75.0); PLATELET COUNT 247 K/UL (150-450); RED BLOOD COUNT 4.47 M/UL (4.20-5.40)
[2020-06-30 06:24] LABS: ALANINE AMINOTRANSFERASE 27 U/L (12-78); ALBUMIN 4.2 G/DL (3.4-5.0); ALBUMIN/GLOBULIN RATIO 1.2 (1.0-2.7); ALKALINE PHOSPHATASE 59 U/L (46-116); ANION GAP 13 mmol/L (5-15); ASPARTATE AMINO TRANSFERASE 18 U/L (15-37); BILIRUBIN,TOTAL 0.6 MG/DL (0.2-1.0); BLOOD UREA NITROGEN 9 mg/dL (7-18); CALCIUM 8.9 MG/DL (8.5-10.1); CARBON DIOXIDE 24 MMOL/L (21-32); CHLORIDE 103 MMOL/L (98-107); CHOLESTEROL 148 MG/DL (< 200); CREATININE 0.9 MG/DL (0.55-1.30); GAMMA GLUTAMYL TRANSPEPTIDASE 28 U/L (5-85); HDL CHOLESTEROL 53 MG/DL (40-60); PHOSPHORUS 1.3 MG/DL (2.5-4.9); SODIUM 141 MMOL/L (136-145); TRIGLYCERIDES 40 MG/DL (30-150)
[2020-06-30 06:29] LABS: POTASSIUM 2.7 MMOL/L (3.5-5.1)
--- NOTE | 2020-06-30 06:32 | NUR ---
NURSE NOTES: Receive a call from Lab for Critical Lab Value, Potassium as 2.7. Call Dr. Olivier and left a message. Waiting for a call back.
[2020-06-30] MEDS ORDERED: D5 1/2NS w/KCl 40meq 1000ml 1,000 ML IV SCH (07:15)
--- NOTE | 2020-06-30 07:25 | NUR ---
HAND-OFF: Report given to DENNIS Lawson. Round is done. Pt is asleep but easily aroused. No acute distress noted. Endorse for Critical Lab Value to follow up.
[2020-06-30] MEDS ORDERED: Potassium Phosphate 20 MM in NS 275 ML IV ONE (09:00)
--- NOTE | 2020-06-30 09:45 | Nephrology Progress Note ---
Assessment/Plan Problem List: (1) Intractable nausea and vomiting (2) Cyclic vomiting syndrome (3) Cannabis abuse (4) Dehydration (5) Hypokalemia (6) Accelerated hypertension Assessment Cyclical vomiting syndrome Narcotic dependency Marijuana abuse Sulfa allergy Electrolytes imbalance Plan On Cardizem for blood pressure Now on clear liquids DC IV hydration Electrolyte supplement, KCl and potassium phosphate IV given IV Reglan, 4 doses then p.o. Continue as per GI/pain management advice Subjective ROS Limited/Unobtainable: No Constitutional: Reports: malaise, weakness Objective Objective Last 24 Hour Vital Signs Date Time Temp Pulse Resp B/P (MAP) Pulse Ox O2 Delivery O2 Flow Rate FiO2 06/30/20 05:46 70 133/79 06/30/20 05:00 70 133/79 (97) 06/30/20 04:23 185/116 06/30/20 04:15 97.8 111 20 185/116 (139) 97 06/30/20 00:00 99.5 108 20 156/96 (116) 97 06/29/20 21:25 103 159/97 (117) 06/29/20 21:25 103 159/67 06/29/20 21:00 Room Air 06/29/20 20:10 172/118 (136) 06/29/20 19:50 97.0 91 20 190/112 (138) 96 06/29/20 16:08 97.9 119 18 156/109 (125) 96 06/29/20 13:07 98.0 79 18 153/98 (116) 97 06/29/20 11:00 96.1 77 22 158/102 (120) 99 Intake and Output 06/29/20 06/30/20 19:00 07:00 Intake Total 750 ml 825 ml Balance 750 ml 825 ml Intake IV Total 750 ml 825 ml # Voids 4 3 Laboratory Tests 06/30/20 04:40: White Blood Count 12.0H, Red Blood Count 4.47, Hemoglobin 13.3, Hematocrit 39.4 , Mean Corpuscular Volume 88, Mean Corpuscular Hemoglobin 29.8, Mean Corpuscular Hemoglobin Concent 33.8, Red Cell Distribution Width 12.0, Platelet Count 247, Mean Platelet Volume 6.8, Neutrophils (%) (Auto) 70.3, Lymphocytes (% ) (Auto) 21.9, Monocytes (%) (Auto) 7.2, Eosinophils (%) (Auto) 0.0, Basophils ( %) (Auto) 0.6, Sodium Level 141#, Potassium Level 2.7*L, Chloride Level 103, Carbon Dioxide Level 24, Anion Gap 13, Blood Urea Nitrogen 9, Creatinine 0.9, Estimat Glomerular Filtration Rate > 60, Glucose Level 140H, Uric Acid 3.7, Calcium Level 8.9, Phosphorus Level 1.3L, Magnesium Level 2.0, Total Bilirubin 0.6, Gamma Glutamyl Transpeptidase 28, Aspartate Amino Transf (AST/SGOT) 18, Alanine Aminotransferase (ALT/SGPT) 27, Alkaline Phosphatase 59, C-Reactive Protein, Quantitative < 0.4, Total Protein 7.6, Albumin 4.2, Globulin 3.4, Albumin/Globulin Ratio 1.2, Triglycerides Level 40, Cholesterol Level 148, LDL Cholesterol 83, HDL Cholesterol 53, Cholesterol/HDL Ratio 2.8L, Thyroid Stimulating Hormone (TSH) 2.746 Height (Feet): 5 Height (Inches): 8.00 Weight (Pounds): 167 General Appearance: no apparent distress Cardiovascular: normal rate - Now Respiratory/Chest: lungs clear Abdomen: soft Jadon Olivier MD Jun 30, 2020 09:45
--- NOTE | 2020-06-30 12:16 | General Progress Note ---
Assessment/Plan Problem List: (1) Cyclic vomiting syndrome ICD Codes: G43.A0 - Cyclical vomiting, not intractable SNOMED: 67045960 (2) Cannabis abuse ICD Codes: F12.10 - Cannabis abuse, uncomplicated SNOMED: 63566980 (3) Dehydration ICD Codes: E86.0 - Dehydration SNOMED: 07070819 (4) Intractable nausea and vomiting ICD Codes: R11.2 - Nausea with vomiting, unspecified SNOMED: 808545382, 284353086 Assessment/Plan: advance diet ivf nausea meds avoid THC add elavil 50 mg recommend psych eval Subjective ROS Limited/Unobtainable: Yes Allergies: Coded Allergies: SULFA (SULFONAMIDE ANTIBIOTICS) (Verified Allergy, Unknown, 02/23/11) Objective Last 24 Hour Vital Signs Date Time Temp Pulse Resp B/P (MAP) Pulse Ox O2 Delivery O2 Flow Rate FiO2 06/30/20 09:00 97.2 99 18 135/81 (99) 96 06/30/20 09:00 Room Air 06/30/20 08:43 97.2 06/30/20 05:46 70 133/79 06/30/20 05:00 70 133/79 (97) 06/30/20 04:23 185/116 06/30/20 04:15 97.8 111 20 185/116 (139) 97 06/30/20 00:00 99.5 108 20 156/96 (116) 97 06/29/20 21:25 103 159/97 (117) 06/29/20 21:25 103 159/67 06/29/20 21:00 Room Air 06/29/20 20:10 172/118 (136) 06/29/20 19:50 97.0 91 20 190/112 (138) 96 06/29/20 16:08 97.9 119 18 156/109 (125) 96 06/29/20 13:07 98.0 79 18 153/98 (116) 97 Intake and Output 06/29/20 06/30/20 19:00 07:00 Intake Total 750 ml 825 ml Balance 750 ml 825 ml Intake IV Total 750 ml 825 ml # Voids 4 3 Laboratory Tests 06/30/20 04:40: White Blood Count 12.0H, Red Blood Count 4.47, Hemoglobin 13.3, Hematocrit 39.4 , Mean Corpuscular Volume 88, Mean Corpuscular Hemoglobin 29.8, Mean Corpuscular Hemoglobin Concent 33.8, Red Cell Distribution Width 12.0, Platelet Count 247, Mean Platelet Volume 6.8, Neutrophils (%) (Auto) 70.3, Lymphocytes (% ) (Auto) 21.9, Monocytes (%) (Auto) 7.2, Eosinophils (%) (Auto) 0.0, Basophils ( %) (Auto) 0.6, Sodium Level 141#, Potassium Level 2.7*L, Chloride Level 103, Carbon Dioxide Level 24, Anion Gap 13, Blood Urea Nitrogen 9, Creatinine 0.9, Estimat Glomerular Filtration Rate > 60, Glucose Level 140H, Uric Acid 3.7, Calcium Level 8.9, Phosphorus Level 1.3L, Magnesium Level 2.0, Total Bilirubin 0.6, Gamma Glutamyl Transpeptidase 28, Aspartate Amino Transf (AST/SGOT) 18, Alanine Aminotransferase (ALT/SGPT) 27, Alkaline Phosphatase 59, C-Reactive Protein, Quantitative < 0.4, Total Protein 7.6, Albumin 4.2, Globulin 3.4, Albumin/Globulin Ratio 1.2, Triglycerides Level 40, Cholesterol Level 148, LDL Cholesterol 83, HDL Cholesterol 53, Cholesterol/HDL Ratio 2.8L, Thyroid Stimulating Hormone (TSH) 2.746 Height (Feet): 5 Height (Inches): 8.00 Weight (Pounds): 167 General Appearance: no apparent distress EENT: normal ENT inspection Neck: supple Cardiovascular: normal rate Respiratory/Chest: decreased breath sounds Abdomen: normal bowel sounds, non tender, soft Extremities: non-tender Ferny Wood MD Jun 30, 2020 12:16
[2020-06-30] MEDS: Docusate 100mg cap ORAL SCH ×2 (12:42→17:06)
--- NOTE | 2020-06-30 16:00 | Consultation ---
DATE OF CONSULTATION: 06/30/2020 INFECTIOUS DISEASE CONSULTATION CONSULTING PHYSICIAN: Nicholas Linn MD. PRIMARY ATTENDING PHYSICIAN: Haresh Capone MD. REASON FOR CONSULT: Leukocytosis. HISTORY OF PRESENT ILLNESS: This is a 35-year-old white female admitted on 28 of June because of vomiting and epigastric pain. The patient had leukocytosis of 12,000 that increased yesterday to 14.1. She was tachycardic at the time of admission with heart rate of 124. She was anxious. Denies any fever or chills. PAST MEDICAL HISTORY: Significant for cyclic vomiting. Also admitted with cannabinoid hyperemesis syndrome in the past. ALLERGIES: Allergic to sulfa drugs. MEDICATIONS: Protonix, metoclopramide, IV potassium chloride, diltiazem, mirtazapine, clonidine, lorazepam, morphine, Tylenol, and Zofran. SOCIAL HISTORY: Single, has no children. Admits to cannabis abuse. Denies alcohol abuse and smoking. REVIEW OF SYSTEMS: No fever, chills, nausea, or vomiting. No diarrhea. No problem passing urine. No coughing. No recent history of contact with sick person. PHYSICAL EXAMINATION: VITAL SIGNS: Temperature is 97.2, pulse 99, blood pressure 135/81. GENERAL APPEARANCE: No acute distress. Seems to have normal weight. HEAD AND NECK: Fate conjunctivae. No oral lesion. HEART: Tachycardic. LUNGS: Clear. ABDOMEN: Soft. Tender in the upper abdomen. EXTREMITIES: No edema. NEUROLOGIC: Awake, alert, and oriented x3. LABORATORY AND DIAGNOSTIC DATA: WBC today is 12, hemoglobin 13.3, hematocrit 39.4, and platelets 247,000. Sodium is 141, potassium 2.7, chloride 103, bicarb 24, BUN 9, creatinine 0.9. Glucose is 114. Urine, THC was positive. UA showed glucose 2+, ketones 2+, blood 1+, wbc was 0 to 2. COVID-19 test was negative. Urine culture showed mixed gram-positive organisms. IMPRESSION: Systemic inflammatory response syndrome with leukocytosis and tachycardia. She has cyclic vomiting syndrome, THC abuse, hypokalemia, persistent nausea and vomiting, anxiety, and insomnia. RECOMMENDATION: Observe off antibiotic. We will follow up the cultures. At the end of my exam, I thank Dr. Capone for involving me in the care of this patient. Nicholas Linn M.D. DR: DIANA JOB#: [id number] CC: TERESA
--- NOTE | 2020-06-30 16:29 | General Progress Note ---
Assessment/Plan Assessment/Plan: (1) Abdominal pain (2) Cyclical vomiting syndrome Patient to be continued on Morphine as needed. D/w Dr. Minor and he concurred. Subjective Date patient seen: Jun 30, 2020 Time patient seen: 04:00 - pm Constitutional: Reports: no symptoms HEENT: Reports: no symptoms Cardiovascular: Reports: no symptoms Respiratory: Reports: no symptoms Gastrointestinal/Abdominal: Reports: no symptoms Genitourinary: Reports: no symptoms Neurologic/Psychiatric: Reports: no symptoms Endocrine: Reports: no symptoms Hematologic/Lymphatic: Reports: no symptoms Allergies: Coded Allergies: SULFA (SULFONAMIDE ANTIBIOTICS) (Verified Allergy, Unknown, 02/23/11) Subjective Patient reports pain is better and she has less vomiting Objective Last 24 Hour Vital Signs Date Time Temp Pulse Resp B/P (MAP) Pulse Ox O2 Delivery O2 Flow Rate FiO2 06/30/20 14:46 97.9 06/30/20 13:29 88 153/102 06/30/20 12:00 97.9 88 20 153/102 (119) 94 06/30/20 09:00 97.2 99 18 135/81 (99) 96 06/30/20 09:00 Room Air 06/30/20 05:46 70 133/79 06/30/20 05:00 70 133/79 (97) 06/30/20 04:23 185/116 06/30/20 04:15 97.8 111 20 185/116 (139) 97 06/30/20 00:00 99.5 108 20 156/96 (116) 97 06/29/20 21:25 103 159/97 (117) 06/29/20 21:25 103 159/67 06/29/20 21:00 Room Air 06/29/20 20:10 172/118 (136) 06/29/20 19:50 97.0 91 20 190/112 (138) 96 Intake and Output 06/29/20 06/30/20 19:00 07:00 Intake Total 750 ml 825 ml Balance 750 ml 825 ml Intake IV Total 750 ml 825 ml # Voids 4 3 Laboratory Tests 06/30/20 04:40: White Blood Count 12.0H, Red Blood Count 4.47, Hemoglobin 13.3, Hematocrit 39.4 , Mean Corpuscular Volume 88, Mean Corpuscular Hemoglobin 29.8, Mean Corpuscular Hemoglobin Concent 33.8, Red Cell Distribution Width 12.0, Platelet Count 247, Mean Platelet Volume 6.8, Neutrophils (%) (Auto) 70.3, Lymphocytes (% ) (Auto) 21.9, Monocytes (%) (Auto) 7.2, Eosinophils (%) (Auto) 0.0, Basophils ( %) (Auto) 0.6, Sodium Level 141#, Potassium Level 2.7*L, Chloride Level 103, Carbon Dioxide Level 24, Anion Gap 13, Blood Urea Nitrogen 9, Creatinine 0.9, Estimat Glomerular Filtration Rate > 60, Glucose Level 140H, Uric Acid 3.7, Calcium Level 8.9, Phosphorus Level 1.3L, Magnesium Level 2.0, Total Bilirubin 0.6, Gamma Glutamyl Transpeptidase 28, Aspartate Amino Transf (AST/SGOT) 18, Alanine Aminotransferase (ALT/SGPT) 27, Alkaline Phosphatase 59, C-Reactive Protein, Quantitative < 0.4, Total Protein 7.6, Albumin 4.2, Globulin 3.4, Albumin/Globulin Ratio 1.2, Triglycerides Level 40, Cholesterol Level 148, LDL Cholesterol 83, HDL Cholesterol 53, Cholesterol/HDL Ratio 2.8L, Thyroid Stimulating Hormone (TSH) 2.746 Height (Feet): 5 Height (Inches): 8.00 Weight (Pounds): 167 General Appearance: no apparent distress, alert EENT: PERRL/EOMI, normal ENT inspection Neck: non-tender, normal alignment Cardiovascular: normal rate, regular rhythm Respiratory/Chest: lungs clear, normal breath sounds Abdomen: non tender, soft Extremities: non-tender Edema: no edema noted Generalized Neurologic: alert, oriented x 3 Skin: warm/dry Viet Sanchez Jun 30, 2020 16:29
--- NOTE | 2020-06-30 16:39 | NUR ---
CASE MANAGEMENT:REVIEW 06/30/20 SI:HYPERTENSIVE HYPERNATREMIA .LEUKOCYTOSIS . INTRACTABLE CYCLIC VOMITING . PROLONG QT INTERVAL . CANNABIS ABUSE 97.2 88 20 153/102 94% ON RA WBC 12.0 K+ 2.7 PHOS 1.3 IS:IV K/PHOS X1 IV KCL X6BAGS IV D5@75ML/HR IV REGLAN Q6HR X4 DOSES IV ZOFRAN Q6HR/PRN IV MORPHINE SULFATE Q6HR/PRN IV ATIVAN Q6HR/PRN CARDIZEM PO TID CATAPRES Q6HR/PRN \: 3E MED SURG UNIT DCP: CONTROL VOMITING CONT HYDRATE START ON FULL LIQ DIET EDUCATION ON AVOID THC CORRECT ELECTROLYTE IMBALANCE CONT IV ABX
--- NOTE | 2020-06-30 16:44 | NUR ---
*-* INSURANCE *-* UPDATED CLINICALS AND REVIEWS HAVE BEEN FAXED TO: [employer] F: [phone] ID#[id number] Ref# [id number] AUTH/PRE CERT NUMBER: [id number] AUTH INP SERV: [id number] [facility] AUTH VALID FROM/TO: 06/28/20 TO 06/30/20 HARD COPY FAXED TO BUSINESS OFFICE AND ADMITTING.
--- NOTE | 2020-06-30 19:25 | NUR ---
HAND-OFF: Report given to DENNIS Gooden.
--- NOTE | 2020-06-30 19:30 | NUR ---
NURSE NOTES: Received report from Bryan COLLINS. Rounding is done. Patient is a/ox4 and c/o pain 05/11 and will give medication as ordered. No any distress noted at this time. IV site is intact and patent. Bed is on alarm, locked, and lowest position. Will continue to monitor.
--- NOTE | 2020-06-30 22:00 | General Progress Note ---
Assessment/Plan Problem List: (1) vomiting able to tolerate PO fluids (2) Hypokalemia ICD Codes: E87.6 - Hypokalemia SNOMED: 49637518 (3) Anxiety ICD Codes: F41.9 - Anxiety disorder, unspecified SNOMED: 42050510 (4) Vomiting ICD Codes: R11.10 - Vomiting, unspecified SNOMED: 559037949 (5) Hypercalcemia ICD Codes: E83.52 - Hypercalcemia SNOMED: 22689316 (6) Intractable cyclical vomiting ICD Codes: G43.A1 - Cyclical vomiting, intractable SNOMED: 92544127 (7) Dehydration ICD Codes: E86.0 - Dehydration SNOMED: 78135395 (8) Cannabis abuse ICD Codes: F12.10 - Cannabis abuse, uncomplicated SNOMED: 34950320 Status: progressing Assessment/Plan: afebrile nac vomitting improving dc once cleared by gi abdominal pain is improving Subjective ROS Limited/Unobtainable: Yes Allergies: Coded Allergies: SULFA (SULFONAMIDE ANTIBIOTICS) (Verified Allergy, Unknown, 02/23/11) Objective Last 24 Hour Vital Signs Date Time Temp Pulse Resp B/P (MAP) Pulse Ox O2 Delivery O2 Flow Rate FiO2 06/30/20 21:16 84 136/93 06/30/20 16:00 98.3 107 20 129/88 (102) 98 06/30/20 14:46 97.9 06/30/20 13:29 88 153/102 06/30/20 12:00 97.9 88 20 153/102 (119) 94 06/30/20 09:00 97.2 99 18 135/81 (99) 96 06/30/20 09:00 Room Air 06/30/20 05:46 70 133/79 06/30/20 05:00 70 133/79 (97) 06/30/20 04:23 185/116 06/30/20 04:15 97.8 111 20 185/116 (139) 97 06/30/20 00:00 99.5 108 20 156/96 (116) 97 Intake and Output 06/29/20 06/30/20 19:00 07:00 Intake Total 750 ml 825 ml Balance 750 ml 825 ml IV Total 750 ml 825 ml # Voids 4 3 Laboratory Tests 06/30/20 04:40: White Blood Count 12.0H, Red Blood Count 4.47, Hemoglobin 13.3, Hematocrit 39.4 , Mean Corpuscular Volume 88, Mean Corpuscular Hemoglobin 29.8, Mean Corpuscular Hemoglobin Concent 33.8, Red Cell Distribution Width 12.0, Platelet Count 247, Mean Platelet Volume 6.8, Neutrophils (%) (Auto) 70.3, Lymphocytes (% ) (Auto) 21.9, Monocytes (%) (Auto) 7.2, Eosinophils (%) (Auto) 0.0, Basophils ( %) (Auto) 0.6, Sodium Level 141#, Potassium Level 2.7*L, Chloride Level 103, Carbon Dioxide Level 24, Anion Gap 13, Blood Urea Nitrogen 9, Creatinine 0.9, Estimat Glomerular Filtration Rate > 60, Glucose Level 140H, Uric Acid 3.7, Calcium Level 8.9, Phosphorus Level 1.3L, Magnesium Level 2.0, Total Bilirubin 0.6, Gamma Glutamyl Transpeptidase 28, Aspartate Amino Transf (AST/SGOT) 18, Alanine Aminotransferase (ALT/SGPT) 27, Alkaline Phosphatase 59, C-Reactive Protein, Quantitative < 0.4, Total Protein 7.6, Albumin 4.2, Globulin 3.4, Albumin/Globulin Ratio 1.2, Triglycerides Level 40, Cholesterol Level 148, LDL Cholesterol 83, HDL Cholesterol 53, Cholesterol/HDL Ratio 2.8L, Thyroid Stimulating Hormone (TSH) 2.746 Height (Feet): 5 Height (Inches): 8.00 Weight (Pounds): 167 Haresh Capone MD Jun 30, 2020 22:00
--- NOTE | 2020-06-30 23:07 | Psych Consult Progress Note ---
Psychiatry Progress Note Psychiatry Progress Note Subjective the pt stated that she is not using much weed and stated that she is more anxious Medications Current Medications Medications (Trade) Dose Ordered Sig/Shanta Route PRN Reason Start Time Stop Time Status Last Admin Dose Admin Acetaminophen (Tylenol) 650 mg Q4H PRN ORAL Mild Pain (1-3)/ Temp 100.5 06/28/20 20:45 07/28/20 20:44 Amitriptyline HCl (Elavil) 50 mg BEDTIME ORAL 06/29/20 21:00 07/29/20 20:59 06/30/20 21:16 Clonidine HCl (Catapres Tab) 0.1 mg Q6H PRN ORAL For High Blood Pressure 06/29/20 20:45 09/27/20 20:44 06/30/20 04:23 Diltiazem HCl (Cardizem Tab) 30 mg EVERY 8 HOURS ORAL 06/29/20 22:00 07/29/20 21:59 06/30/20 21:16 Docusate Sodium (Colace) 100 mg THREE TIMES A DAY ORAL 06/30/20 13:00 07/30/20 12:59 06/30/20 17:06 Escitalopram Oxalate (Lexapro) 10 mg DAILY ORAL 07/01/20 09:00 07/31/20 08:59 Lorazepam (Ativan 2mg/ml 1ml) 1 mg Q6H PRN IV For Anxiety 06/29/20 17:00 07/06/20 16:59 06/30/20 22:07 Metoclopramide HCl (Reglan) 5 mg TIAC ORAL 06/30/20 11:30 07/30/20 11:29 06/30/20 15:58 Mirtazapine (Remeron) 7.5 mg BEDTIME ORAL 06/29/20 21:00 09/27/20 20:59 06/30/20 21:16 Morphine Sulfate (Morphine Sulfate) 2 mg Q6H PRN IVP Severe Pain (Pain Scale 7-10) 06/28/20 21:20 07/05/20 21:19 06/30/20 20:18 Ondansetron HCl (Zofran) 8 mg Q6H PRN IVP Nausea & Vomiting 06/30/20 11:45 07/30/20 11:44 06/30/20 19:56 Pantoprazole (Protonix) 40 mg EVERY 12 HOURS ORAL 06/30/20 21:00 07/30/20 20:59 06/30/20 21:16 Neurological/Psychiatric: Reports: anxiety Allergies: Coded Allergies: SULFA (SULFONAMIDE ANTIBIOTICS) (Verified Allergy, Unknown, 02/23/11) Objective Data Height (Feet): 5 Height (Inches): 8.00 Weight (Pounds): 167 Additional Comments: Alert and oriented times self, place, situation, and date. Mood is anxious and dysphoric. Affect is constricted, congruent with mood. Thought process is concrete. Thought content, there is no suicidal or homicidal ideation. Cognition is intact. Insight and judgment is fair. Assessment/Plan Status: progressing Assessment/Plan: ASSESSMENT: [place] I Anxiety disorder. Cannabis abuse versus dependence. [place] II Deferred. [place] III As above. Lopeno IV Low. [place]o V 50. PLAN: 1. Remeron 7.5 at bedtime. 2. Ativan IV. 3. Provide the patient with reality orientation and supportive therapy. 4. Lexapro 10mg po Jonathan Aguirre MD Jun 30, 2020 23:07
--- NOTE | 2020-06-30 23:10 | Cardiology Progress Note ---
Assessment/Plan Assessment/Plan 1. Sinus tachycardia, resolved with hydration, continue monitoring hemodynamics , antiemetics for treatment of vomiting. 2. SWATI, resolved creat down to 0.9. 3. Cyclic vomiting syndrome due to THC abuse. 4. Hx of asthma. 5. Hypokalemia, due to GI loss, consider KCL IVPB. Subjective Subjective No cardiac events. Denies chest pain or SOB. Objective Last 24 Hour Vital Signs Date Time Temp Pulse Resp B/P (MAP) Pulse Ox O2 Delivery O2 Flow Rate FiO2 06/30/20 21:16 84 136/93 06/30/20 21:00 Room Air 06/30/20 20:00 99.0 84 18 136/93 (107) 99 06/30/20 16:00 98.3 107 20 129/88 (102) 98 06/30/20 14:46 97.9 06/30/20 13:29 88 153/102 06/30/20 12:00 97.9 88 20 153/102 (119) 94 06/30/20 09:00 97.2 99 18 135/81 (99) 96 06/30/20 09:00 Room Air 06/30/20 05:46 70 133/79 06/30/20 05:00 70 133/79 (97) 06/30/20 04:23 185/116 06/30/20 04:15 97.8 111 20 185/116 (139) 97 06/30/20 00:00 99.5 108 20 156/96 (116) 97 Intake and Output 06/29/20 06/30/20 19:00 07:00 Intake Total 750 ml 825 ml Balance 750 ml 825 ml IV Total 750 ml 825 ml # Voids 4 3 Laboratory Tests Test 06/30/20 04:40 White Blood Count 12.0 K/UL (4.8-10.8) H Red Blood Count 4.47 M/UL (4.20-5.40) Hemoglobin 13.3 G/DL (12.0-16.0) Hematocrit 39.4 % (37.0-47.0) Mean Corpuscular Volume 88 FL (80-99) Mean Corpuscular Hemoglobin 29.8 PG (27.0-31.0) Mean Corpuscular Hemoglobin Concent 33.8 G/DL (32.0-36.0) Red Cell Distribution Width 12.0 % (11.6-14.8) Platelet Count 247 K/UL (150-450) Mean Platelet Volume 6.8 FL (6.5-10.1) Neutrophils (%) (Auto) 70.3 % (45.0-75.0) Lymphocytes (%) (Auto) 21.9 % (20.0-45.0) Monocytes (%) (Auto) 7.2 % (1.0-10.0) Eosinophils (%) (Auto) 0.0 % (0.0-3.0) Basophils (%) (Auto) 0.6 % (0.0-2.0) Sodium Level 141 MMOL/L (136-145) # Potassium Level 2.7 MMOL/L (3.5-5.1) *L Chloride Level 103 MMOL/L (98-107) Carbon Dioxide Level 24 MMOL/L (21-32) Anion Gap 13 mmol/L (5-15) Blood Urea Nitrogen 9 mg/dL (7-18) Creatinine 0.9 MG/DL (0.55-1.30) Estimat Glomerular Filtration Rate > 60 mL/min (>60) Glucose Level 140 MG/DL (74-106) H Uric Acid 3.7 MG/DL (2.6-7.2) Calcium Level 8.9 MG/DL (8.5-10.1) Phosphorus Level 1.3 MG/DL (2.5-4.9) L Magnesium Level 2.0 MG/DL (1.8-2.4) Total Bilirubin 0.6 MG/DL (0.2-1.0) Gamma Glutamyl Transpeptidase 28 U/L (5-85) Aspartate Amino Transf (AST/SGOT) 18 U/L (15-37) Alanine Aminotransferase (ALT/SGPT) 27 U/L (12-78) Alkaline Phosphatase 59 U/L (46-116) C-Reactive Protein, Quantitative < 0.4 mg/dL (0.00-0.90) Total Protein 7.6 G/DL (6.4-8.2) Albumin 4.2 G/DL (3.4-5.0) Globulin 3.4 g/dL Albumin/Globulin Ratio 1.2 (1.0-2.7) Triglycerides Level 40 MG/DL (30-150) Cholesterol Level 148 MG/DL (< 200) LDL Cholesterol 83 mg/dL (<100) HDL Cholesterol 53 MG/DL (40-60) Cholesterol/HDL Ratio 2.8 (3.3-4.4) L Thyroid Stimulating Hormone (TSH) 2.746 uiU/mL (0.358-3.740) Microbiology Date/Time Source Procedure Growth Status 06/29/20 21:30 Nasopharynx SARS-CoV-2 RdRp Gene Assay - Final Complete 06/28/20 13:40 Urine,Clean Catch Urine Culture - Preliminary Mixed Gram Positive Organism Resulted Objective HEENT: Atraumatic, normocephalic, PERRLA, EOMI, Dry mucosal membranes. NECK: Cannot assess JVP due to obesity and short neck and current use of BiPAP mask. No carotid bruit. Carotid upstrokes 2+ bilaterally. CARDIOVASCULAR: Normal S1, S2. Regular rate and rhythm. No murmurs, gallops, or rubs. PMI is at fourth intercostal space in the midclavicular line. LUNGS: Clear to auscultation. ABDOMEN: Soft, nondistended. No hepatosplenomegaly. Positive bowel sounds. EXTREMITIES: No evidence of edema, clubbing, or cyanosis. Slim Leon MD Jun 30, 2020 23:10
[2020-07-01] VITALS (9 sets, daily range): BP systolic 119–180; BP diastolic 72–119
--- NOTE | 2020-07-01 01:45 | Consultation ---
DATE OF CONSULTATION: 06/29/2020 CARDIOLOGY CONSULTATION CONSULTING PHYSICIAN: Slim Leon M.D. REFERRING PHYSICIAN: Haresh Capone M.D. REASON FOR CONSULTATION: Management of tachycardia. HISTORY OF PRESENT ILLNESS: The patient is a very unfortunate 35-year-old female with history of cyclical vomiting due to THC, who presents to the emergency department with complaints of vomiting since the morning of 06/28/2020 with associated epigastric pain. At the time of arrival to this hospital, the patient denied any chest pain or shortness of breath. Her blood pressure was 106/52 mmHg and heart rate was 124. In the emergency department, she had a 12-lead electrocardiogram, which showed sinus tachycardia with no acute EKG changes. Blood gas was significant for elevated WBC count at 12.2. Sodium of 142, BUN and creatinine of 11 and 1.2, serum glucose of 191, and positive THC in the urine drug screen. The patient was admitted to med/surg unit for further evaluation and management of abdominal pain and vomiting. Cardiology consultation was made at request of Dr. Capone for assessment of tachycardia. PAST MEDICAL HISTORY: 1. History of asthma. 2. History of cyclic vomiting syndrome. 3. Cannabis abuse. FAMILY HISTORY: No premature coronary artery disease in the first-degree relatives. ALLERGIES: Sulfa. MEDICATIONS: List of medications including famotidine 20 mg p.o. daily, Ativan 1 mg 3 times a day p.r.n. anxiety, Zofran 8 mg every 6 hours p.r.n. nausea and vomiting, and promethazine 25 mg q.6 hours. SOCIAL HISTORY: Denies any tobacco, alcohol. Positive for THC use. REVIEW OF SYSTEMS: A 12-system review was done essentially negative except what was mentioned in the history of present illness. PHYSICAL EXAMINATION: VITAL SIGNS: Blood pressure is 106/52 with a heart rate of 124, respirations 36, temperature 97.9 degrees Fahrenheit, O2 saturation 99% on room air. GENERAL: The patient is ill-appearing 35-year-old female, in no apparent respiratory distress. HEENT: Atraumatic and normocephalic. Anicteric. Pupils are equal, round, and reactive to light and accommodation. Extraocular muscles intact. Dry mucosal membranes. NECK: JVP less than 5 cm. No carotid bruit. Carotid upstrokes 2+ bilaterally. CARDIOVASCULAR: Normal S1, S2. Tachycardia. No murmurs, gallops, or rubs. LUNGS: Clear to auscultation bilaterally. ABDOMEN: Soft, nontender, nondistended. No hepatosplenomegaly. Positive bowel sounds. EXTREMITIES: No evidence of edema, clubbing, or cyanosis. LABORATORY FINDINGS: WBC 12.2, hemoglobin 14.4, hematocrit 44.1, and platelet count is 262. Sodium is 142, potassium is 3.8, chloride 107, bicarbonate 19, BUN 11, creatinine 1.2, glucose is 191. Calcium is 10.4. Magnesium 1.8. Lipase is 150. ASSESSMENT AND PLAN: The patient is a very unfortunate 35-year-old female, who was seen in Cardiology consultation. 1. Sinus tachycardia, this is most likely due to intravascular volume depletion. The patient requires to be on half normal saline with potassium. No AV jad agent is required at this time. tachycardia is the treatment of the underlying cause. 2. THC abuse. 3. Cyclic vomiting syndrome. 4. History of asthma. 5. Acute kidney injury, most likely prerenal azotemia. Continue hydration. Creatinine check on a daily basis. I would like to thank, Dr. Capone, for the courtesy of this consultation. Slim Leon M.D. DR: BROOKE JOB#: [id number] CC:
[2020-07-01] MEDS: Morphine Sulfate 2mg/ml Inj(IV/IM USE ONLY) IVP PRN ×4 (02:19→21:21)
[2020-07-01] MEDS: LORazepam Inj 2mg/ml 1ml IV PRN (05:45)
[2020-07-01 06:08] LABS: HEMATOCRIT 42.1 % (37.0-47.0); HEMOGLOBIN 14.3 G/DL (12.0-16.0); MEAN CORPUSCULAR VOLUME 87 FL (80-99); PLATELET COUNT 278 K/UL (150-450); RED BLOOD COUNT 4.84 M/UL (4.20-5.40); RED CELL DISTRIBUTION WIDTH 11.8 % (11.6-14.8); WHITE BLOOD COUNT 16.8 K/UL (4.8-10.8)
[2020-07-01] MEDS: dilTIAZem HCl 30mg tab ORAL SCH ×3 (06:12→21:21)
[2020-07-01 06:56] LABS: ALANINE AMINOTRANSFERASE 27 U/L (12-78); ALBUMIN 4.4 G/DL (3.4-5.0); ALBUMIN/GLOBULIN RATIO 1.3 (1.0-2.7); ALKALINE PHOSPHATASE 65 U/L (46-116); ANION GAP 16 mmol/L (5-15); ASPARTATE AMINO TRANSFERASE 17 U/L (15-37); BILIRUBIN,TOTAL 0.6 MG/DL (0.2-1.0); BLOOD UREA NITROGEN 7 mg/dL (7-18); CALCIUM 9.1 MG/DL (8.5-10.1); CARBON DIOXIDE 21 MMOL/L (21-32); CHLORIDE 101 MMOL/L (98-107); CREATININE 0.8 MG/DL (0.55-1.30); PHOSPHORUS 2.4 MG/DL (2.5-4.9); POTASSIUM 3.2 MMOL/L (3.5-5.1); SODIUM 138 MMOL/L (136-145)
--- NOTE | 2020-07-01 07:10 | NUR ---
HAND-OFF: Report given to Mitzi COLLINS. Patient in stable condition.
--- NOTE | 2020-07-01 07:10 | NUR ---
NURSE NOTES: Report received from Giacomo COLLINS, rounds made. Patient alert, oriented x4, slightly anxious/restless in bed (from laying to sitting position in bed). Abdominal pain 7-8. Poor appetite. Nausea present. No emesis. Patient rinses her mouth after having ice chips, inhales peppermint essential oil to help with nausea sensation. Left foot IV, site intact, asymptomatic, NS at 20 ml/hr. Bilateral SCDs off. Call light in reach, bed in lowest position, will continue to monitor. Addendum: 07/01/20 at 0801 by Mitzi Garcia RN EMAR reviewed with patient, verbalized understanding.
[2020-07-01] MEDS: Docusate 100mg cap ORAL SCH ×3 (08:23→18:14)
[2020-07-01] MEDS ORDERED: NS 500ML ONE (08:25)
--- NOTE | 2020-07-01 08:52 | Nephrology Progress Note ---
Assessment/Plan Problem List: (1) Intractable nausea and vomiting (2) Cyclic vomiting syndrome (3) Cannabis abuse (4) Dehydration (5) Hypokalemia (6) Accelerated hypertension Assessment Cyclical vomiting syndrome Narcotic dependency Marijuana abuse Sulfa allergy Electrolytes imbalance Plan July 01: Patient vomited again this morning. Will change Reglan to IV. Slow hydration will be again initiated. Potassium and phosphorus supplement IV given will check lab tomorrow. Will check chest x-ray. White blood cells burke to over 16,000. On Cardizem for blood pressure Now on clear liquids DC IV hydration Electrolyte supplement, KCl and potassium phosphate IV given IV Reglan, 4 doses then p.o. Continue as per GI/pain management advice Subjective ROS Limited/Unobtainable: No Constitutional: Reports: malaise, other - Vomited again this morning Objective Objective Last 24 Hour Vital Signs Date Time Temp Pulse Resp B/P (MAP) Pulse Ox O2 Delivery O2 Flow Rate FiO2 07/01/20 08:00 98.3 125 20 160/105 (123) 97 07/01/20 06:12 104 151/89 07/01/20 04:00 97.9 104 20 151/89 (109) 98 07/01/20 00:00 99.3 79 18 127/92 (104) 96 06/30/20 21:16 84 136/93 06/30/20 21:00 Room Air 06/30/20 20:00 99.0 84 18 136/93 (107) 99 06/30/20 16:00 98.3 107 20 129/88 (102) 98 06/30/20 14:46 97.9 06/30/20 13:29 88 153/102 06/30/20 12:00 97.9 88 20 153/102 (119) 94 06/30/20 09:00 97.2 99 18 135/81 (99) 96 06/30/20 09:00 Room Air Intake and Output 06/30/20 07/01/20 19:00 07:00 Intake Total 300 ml Balance 300 ml Intake Oral 300 ml # Voids 5 2 Laboratory Tests 07/01/20 05:05: White Blood Count 16.8H, Red Blood Count 4.84, Hemoglobin 14.3, Hematocrit 42.1 , Mean Corpuscular Volume 87, Mean Corpuscular Hemoglobin 29.6, Mean Corpuscular Hemoglobin Concent 34.0, Red Cell Distribution Width 11.8, Platelet Count 278, Mean Platelet Volume 7.2, Neutrophils (%) (Auto) , Lymphocytes (%) ( Auto) , Monocytes (%) (Auto) , Eosinophils (%) (Auto) , Basophils (%) (Auto) , Neutrophils % (Manual) [Pending], Lymphocytes % (Manual) [Pending], Platelet Estimate [Pending], Platelet Morphology [Pending], Sodium Level 138, Potassium Level 3.2L, Chloride Level 101, Carbon Dioxide Level 21, Anion Gap 16H, Blood Urea Nitrogen 7, Creatinine 0.8, Estimat Glomerular Filtration Rate > 60, Glucose Level 128H, Calcium Level 9.1, Phosphorus Level 2.4L, Magnesium Level 2.0, Total Bilirubin 0.6, Aspartate Amino Transf (AST/SGOT) 17, Alanine Aminotransferase (ALT/SGPT) 27, Alkaline Phosphatase 65, Total Protein 7.9, Albumin 4.4, Globulin 3.5, Albumin/Globulin Ratio 1.3 Height (Feet): 5 Height (Inches): 8.00 Weight (Pounds): 167 General Appearance: mild distress Cardiovascular: tachycardia Respiratory/Chest: decreased breath sounds Abdomen: soft Jadon Olivier MD Jul 01, 2020 08:52
[2020-07-01] MEDS ORDERED: Potassium Phosphate 20 MM in NS 275 ML IV ONE (10:00)
--- NOTE | 2020-07-01 10:00 | NUR ---
NURSE NOTES: Dr. Capone notified of WBC 16.8, orders to notify Dr. Nicholas Linn, will follow orders.
--- NOTE | 2020-07-01 10:02 | General Progress Note ---
Assessment/Plan Assessment/Plan: (1) Abdominal pain (2) Cyclical vomiting syndrome Patient to be continued on Morphine as needed. D/w Dr. Minor and he concurred. Subjective Date patient seen: Jul 01, 2020 Time patient seen: 09:00 - am Constitutional: Reports: no symptoms HEENT: Reports: no symptoms Cardiovascular: Reports: no symptoms Respiratory: Reports: no symptoms Gastrointestinal/Abdominal: Reports: no symptoms Genitourinary: Reports: no symptoms Neurologic/Psychiatric: Reports: no symptoms Endocrine: Reports: no symptoms Hematologic/Lymphatic: Reports: no symptoms Allergies: Coded Allergies: SULFA (SULFONAMIDE ANTIBIOTICS) (Verified Allergy, Unknown, 02/23/11) Subjective Patient is in bed showing no signs of pain or distress. Pain has been tolerated on the Morphine as needed. She has no new complaints at this time. Objective Last 24 Hour Vital Signs Date Time Temp Pulse Resp B/P (MAP) Pulse Ox O2 Delivery O2 Flow Rate FiO2 07/01/20 09:01 180/119 07/01/20 08:51 97.5 113 22 180/119 (139) 98 07/01/20 08:00 98.3 125 20 160/105 (123) 97 07/01/20 06:12 104 151/89 07/01/20 04:00 97.9 104 20 151/89 (109) 98 07/01/20 00:00 99.3 79 18 127/92 (104) 96 06/30/20 21:16 84 136/93 06/30/20 21:00 Room Air 06/30/20 20:00 99.0 84 18 136/93 (107) 99 06/30/20 16:00 98.3 107 20 129/88 (102) 98 06/30/20 14:46 97.9 06/30/20 13:29 88 153/102 06/30/20 12:00 97.9 88 20 153/102 (119) 94 Intake and Output 06/30/20 07/01/20 19:00 07:00 Intake Total 300 ml Balance 300 ml Intake Oral 300 ml # Voids 5 2 Laboratory Tests 07/01/20 05:05: White Blood Count 16.8H, Red Blood Count 4.84, Hemoglobin 14.3, Hematocrit 42.1 , Mean Corpuscular Volume 87, Mean Corpuscular Hemoglobin 29.6, Mean Corpuscular Hemoglobin Concent 34.0, Red Cell Distribution Width 11.8, Platelet Count 278, Mean Platelet Volume 7.2, Neutrophils (%) (Auto) , Lymphocytes (%) ( Auto) , Monocytes (%) (Auto) , Eosinophils (%) (Auto) , Basophils (%) (Auto) , Differential Total Cells Counted 100, Neutrophils % (Manual) 90H, Lymphocytes % (Manual) 7L, Monocytes % (Manual) 3, Eosinophils % (Manual) 0, Basophils % ( Manual) 0, Band Neutrophils 0, Platelet Estimate Adequate, Platelet Morphology Normal, Red Blood Cell Morphology Normal, Sodium Level 138, Potassium Level 3.2L , Chloride Level 101, Carbon Dioxide Level 21, Anion Gap 16H, Blood Urea Nitrogen 7, Creatinine 0.8, Estimat Glomerular Filtration Rate > 60, Glucose Level 128H, Calcium Level 9.1, Phosphorus Level 2.4L, Magnesium Level 2.0, Total Bilirubin 0.6, Aspartate Amino Transf (AST/SGOT) 17, Alanine Aminotransferase (ALT/SGPT) 27, Alkaline Phosphatase 65, Total Protein 7.9, Albumin 4.4, Globulin 3.5, Albumin/Globulin Ratio 1.3 Height (Feet): 5 Height (Inches): 8.00 Weight (Pounds): 167 General Appearance: no apparent distress, alert EENT: PERRL/EOMI, normal ENT inspection Neck: non-tender, normal alignment Cardiovascular: normal rate, regular rhythm Respiratory/Chest: lungs clear Abdomen: non tender, soft Edema: no edema noted Generalized Neurologic: alert, oriented x 3 Skin: normal pigmentation Viet Sanchez Jul 01, 2020 10:02
[2020-07-01] MEDS: D5NS w/KCl 40mEq 1000ml 1,000 ML IV SCH (10:30)
--- NOTE | 2020-07-01 10:30 | NUR ---
NURSE NOTES: Spoke with pharmacy, demetri to hang D5 NS +40 KCL at 50 ml/hr with Potassium Phosphate IVPB.
--- NOTE | 2020-07-01 11:08 | Infectious Diseases Prog Note ---
Assessment/Plan Assessment/Plan IMPRESSION: Systemic inflammatory response syndrome Worsening leukocytosis Tachycardia. Cyclic vomiting syndrome, THC abuse, Hypokalemia, Persistent nausea and vomiting, Anxiety, a RECOMMENDATION: CXR Observe off antibiotic. Subjective ROS Limited/Unobtainable: Yes Constitutional: Denies: fever Allergies: Coded Allergies: SULFA (SULFONAMIDE ANTIBIOTICS) (Verified Allergy, Unknown, 02/23/11) Objective Last 24 Hour Vital Signs Date Time Temp Pulse Resp B/P (MAP) Pulse Ox O2 Delivery O2 Flow Rate FiO2 07/01/20 10:26 72 119/72 (88) 07/01/20 09:01 180/119 07/01/20 08:51 97.5 113 22 180/119 (139) 98 07/01/20 08:00 98.3 125 20 160/105 (123) 97 07/01/20 06:12 104 151/89 07/01/20 04:00 97.9 104 20 151/89 (109) 98 07/01/20 00:00 99.3 79 18 127/92 (104) 96 06/30/20 21:16 84 136/93 06/30/20 21:00 Room Air 06/30/20 20:00 99.0 84 18 136/93 (107) 99 06/30/20 16:00 98.3 107 20 129/88 (102) 98 06/30/20 14:46 97.9 06/30/20 13:29 88 153/102 06/30/20 12:00 97.9 88 20 153/102 (119) 94 Height (Feet): 5 Height (Inches): 8.00 Weight (Pounds): 167 General Appearance: no acute distress HEENT: mucous membranes moist Respiratory/Chest: lungs clear Cardiovascular: normal rate Abdomen: soft, non tender Extremities: no edema Neurologic/Psychiatric: other - sleeping Microbiology Date/Time Source Procedure Growth Status 06/29/20 21:30 Nasopharynx SARS-CoV-2 RdRp Gene Assay - Final Complete 06/28/20 13:40 Urine,Clean Catch Urine Culture - Final Mixed Gram Positive Organism Complete Laboratory Tests Test 07/01/20 05:05 White Blood Count 16.8 K/UL (4.8-10.8) H Red Blood Count 4.84 M/UL (4.20-5.40) Hemoglobin 14.3 G/DL (12.0-16.0) Hematocrit 42.1 % (37.0-47.0) Mean Corpuscular Volume 87 FL (80-99) Mean Corpuscular Hemoglobin 29.6 PG (27.0-31.0) Mean Corpuscular Hemoglobin Concent 34.0 G/DL (32.0-36.0) Red Cell Distribution Width 11.8 % (11.6-14.8) Platelet Count 278 K/UL (150-450) Mean Platelet Volume 7.2 FL (6.5-10.1) Neutrophils (%) (Auto) % (45.0-75.0) Lymphocytes (%) (Auto) % (20.0-45.0) Monocytes (%) (Auto) % (1.0-10.0) Eosinophils (%) (Auto) % (0.0-3.0) Basophils (%) (Auto) % (0.0-2.0) Differential Total Cells Counted 100 Neutrophils % (Manual) 90 % (45-75) H Lymphocytes % (Manual) 7 % (20-45) L Monocytes % (Manual) 3 % (1-10) Eosinophils % (Manual) 0 % (0-3) Basophils % (Manual) 0 % (0-2) Band Neutrophils 0 % (0-8) Platelet Estimate Adequate Platelet Morphology Normal Red Blood Cell Morphology Normal Sodium Level 138 MMOL/L (136-145) Potassium Level 3.2 MMOL/L (3.5-5.1) L Chloride Level 101 MMOL/L (98-107) Carbon Dioxide Level 21 MMOL/L (21-32) Anion Gap 16 mmol/L (5-15) H Blood Urea Nitrogen 7 mg/dL (7-18) Creatinine 0.8 MG/DL (0.55-1.30) Estimat Glomerular Filtration Rate > 60 mL/min (>60) Glucose Level 128 MG/DL (74-106) H Calcium Level 9.1 MG/DL (8.5-10.1) Phosphorus Level 2.4 MG/DL (2.5-4.9) L Magnesium Level 2.0 MG/DL (1.8-2.4) Total Bilirubin 0.6 MG/DL (0.2-1.0) Aspartate Amino Transf (AST/SGOT) 17 U/L (15-37) Alanine Aminotransferase (ALT/SGPT) 27 U/L (12-78) Alkaline Phosphatase 65 U/L (46-116) Total Protein 7.9 G/DL (6.4-8.2) Albumin 4.4 G/DL (3.4-5.0) Globulin 3.5 g/dL Albumin/Globulin Ratio 1.3 (1.0-2.7) Current Medications Medications (Trade) Dose Ordered Sig/Shanta Route PRN Reason Start Time Stop Time Status Last Admin Dose Admin Acetaminophen (Tylenol) 650 mg Q4H PRN ORAL Mild Pain (1-3)/ Temp 100.5 06/28/20 20:45 07/28/20 20:44 Amitriptyline HCl (Elavil) 50 mg BEDTIME ORAL 06/29/20 21:00 07/29/20 20:59 06/30/20 21:16 Clonidine HCl (Catapres Tab) 0.1 mg Q6H PRN ORAL For High Blood Pressure 06/29/20 20:45 09/27/20 20:44 07/01/20 09:01 Dextrose/ Electrolytes 1,000 ml @ 50 mls/hr Q20H IV 07/01/20 10:00 07/31/20 09:59 07/01/20 10:30 Diltiazem HCl (Cardizem Tab) 30 mg EVERY 8 HOURS ORAL 06/29/20 22:00 07/29/20 21:59 07/01/20 06:12 Docusate Sodium (Colace) 100 mg THREE TIMES A DAY ORAL 06/30/20 13:00 07/30/20 12:59 07/01/20 08:23 Escitalopram Oxalate (Lexapro) 10 mg DAILY ORAL 07/01/20 09:00 07/31/20 08:59 07/01/20 08:24 Lorazepam (Ativan 2mg/ml 1ml) 1 mg Q6H PRN IV For Anxiety 06/29/20 17:00 07/06/20 16:59 07/01/20 05:45 Metoclopramide HCl (Reglan) 10 mg Q6H IVP 07/01/20 12:00 07/02/20 06:01 Mirtazapine (Remeron) 7.5 mg BEDTIME ORAL 06/29/20 21:00 09/27/20 20:59 06/30/20 21:16 Morphine Sulfate (Morphine Sulfate) 2 mg Q6H PRN IVP Severe Pain (Pain Scale 7-10) 06/28/20 21:20 07/05/20 21:19 07/01/20 08:23 Ondansetron HCl (Zofran) 8 mg Q6H PRN IVP Nausea & Vomiting 06/30/20 11:45 07/30/20 11:44 07/01/20 08:24 Pantoprazole (Protonix) 40 mg EVERY 12 HOURS ORAL 06/30/20 21:00 07/30/20 20:59 07/01/20 08:24 Potassium Phosphate 20 mm/ Sodium Chloride 281.6667 ml @ 46.944 m... ONCE ONCE IV 07/01/20 10:00 07/01/20 15:59 07/01/20 10:31 Potassium Chloride (K-Dur) 40 meq DAILY ORAL 07/01/20 09:00 09/29/20 08:59 07/01/20 08:24 Nicholas Linn MD Jul 01, 2020 11:08
--- NOTE | 2020-07-01 11:21 | General Progress Note ---
Assessment/Plan Problem List: (1) Cyclic vomiting syndrome ICD Codes: G43.A0 - Cyclical vomiting, not intractable SNOMED: 46384522 (2) Cannabis abuse ICD Codes: F12.10 - Cannabis abuse, uncomplicated SNOMED: 30301202 (3) Dehydration ICD Codes: E86.0 - Dehydration SNOMED: 08600055 (4) Intractable nausea and vomiting ICD Codes: R11.2 - Nausea with vomiting, unspecified SNOMED: 985467286, 108002639 Assessment/Plan: advance diet ivf nausea meds avoid THC elavil 50 mg recommend psych eval Subjective ROS Limited/Unobtainable: Yes Allergies: Coded Allergies: SULFA (SULFONAMIDE ANTIBIOTICS) (Verified Allergy, Unknown, 02/23/11) Objective Last 24 Hour Vital Signs Date Time Temp Pulse Resp B/P (MAP) Pulse Ox O2 Delivery O2 Flow Rate FiO2 07/01/20 10:26 72 119/72 (88) 07/01/20 09:01 180/119 07/01/20 08:51 97.5 113 22 180/119 (139) 98 07/01/20 08:00 98.3 125 20 160/105 (123) 97 07/01/20 06:12 104 151/89 07/01/20 04:00 97.9 104 20 151/89 (109) 98 07/01/20 00:00 99.3 79 18 127/92 (104) 96 06/30/20 21:16 84 136/93 06/30/20 21:00 Room Air 06/30/20 20:00 99.0 84 18 136/93 (107) 99 06/30/20 16:00 98.3 107 20 129/88 (102) 98 06/30/20 14:46 97.9 06/30/20 13:29 88 153/102 06/30/20 12:00 97.9 88 20 153/102 (119) 94 Intake and Output 06/30/20 07/01/20 19:00 07:00 Intake Total 300 ml Balance 300 ml Intake Oral 300 ml # Voids 5 2 Laboratory Tests 07/01/20 05:05: White Blood Count 16.8H, Red Blood Count 4.84, Hemoglobin 14.3, Hematocrit 42.1 , Mean Corpuscular Volume 87, Mean Corpuscular Hemoglobin 29.6, Mean Corpuscular Hemoglobin Concent 34.0, Red Cell Distribution Width 11.8, Platelet Count 278, Mean Platelet Volume 7.2, Neutrophils (%) (Auto) , Lymphocytes (%) ( Auto) , Monocytes (%) (Auto) , Eosinophils (%) (Auto) , Basophils (%) (Auto) , Differential Total Cells Counted 100, Neutrophils % (Manual) 90H, Lymphocytes % (Manual) 7L, Monocytes % (Manual) 3, Eosinophils % (Manual) 0, Basophils % ( Manual) 0, Band Neutrophils 0, Platelet Estimate Adequate, Platelet Morphology Normal, Red Blood Cell Morphology Normal, Sodium Level 138, Potassium Level 3.2L , Chloride Level 101, Carbon Dioxide Level 21, Anion Gap 16H, Blood Urea Nitrogen 7, Creatinine 0.8, Estimat Glomerular Filtration Rate > 60, Glucose Level 128H, Calcium Level 9.1, Phosphorus Level 2.4L, Magnesium Level 2.0, Total Bilirubin 0.6, Aspartate Amino Transf (AST/SGOT) 17, Alanine Aminotransferase (ALT/SGPT) 27, Alkaline Phosphatase 65, Total Protein 7.9, Albumin 4.4, Globulin 3.5, Albumin/Globulin Ratio 1.3 Height (Feet): 5 Height (Inches): 8.00 Weight (Pounds): 167 General Appearance: no apparent distress EENT: normal ENT inspection Neck: supple Cardiovascular: normal rate Respiratory/Chest: decreased breath sounds Abdomen: normal bowel sounds, non tender, soft Extremities: non-tender Ferny Wood MD Jul 01, 2020 11:21
[2020-07-01] MEDS: Metoclopramide 10mg/2ml Inj IVP SCH ×2 (12:43→18:14)
--- NOTE | 2020-07-01 13:18 | Diagnostic Imaging Report ---
Procedure: XRAY Chest 1v Reason for study: Reason For Exam: COUGH Comparison films: 07/05/2010. FINDINGS: A single one view chest is obtained. Vascularity is normal. The lung hernández are clear bilaterally. Cardiac and mediastinal silhouette are within normal limits. CP angles are sharp. The bony thorax appear unremarkable. IMPRESSION: NO ACUTE CARDIOPULMONARY DISEASE.
--- NOTE | 2020-07-01 13:24 | NUR ---
RADIOLOGY DEPT., CHEST X-RAY DONE.-P.DYE
--- NOTE | 2020-07-01 14:30 | NUR ---
NURSE NOTES: Patient noted to cough only with vomiting, no cough noted otherwise. PCXR done, will check results.
--- NOTE | 2020-07-01 16:18 | NUR ---
CASE MANAGEMENT:REVIEW 07/01/20 SI:HYPERTENSIVE . TACHYCARDIA HYPERNATREMIA .LEUKOCYTOSIS . INTRACTABLE CYCLIC VOMITING . PROLONG QT INTERVAL . CANNABIS ABUSE URINE CX- MIXED GRAM + ORGANISM 98.2 120 21 140/91 97% ON RA WBC 16.8 K+ 3.2 PHOS 2.4 IS:IV K/PHOS X1 IV D5@50ML/HR K-DUR PO QD IV MORPHINE SULFATE Q6HR/PRN IV ATIVAN Q6HR/PRN CARDIZEM PO TID CATAPRES Q6HR/PRN XRAY Chest 1v-NO ACUTE CARDIOPULMONARY DISEASE. \: 3E MED SURG UNIT DCP: Consult ID for increasing WBC OBSERVE OFF ABX PSYCH EVAL COMPLETE
--- NOTE | 2020-07-01 16:24 | NUR ---
*-* INSURANCE *-* UPDATED CLINICALS AND REVIEWS HAVE BEEN FAXED TO: [employer] F: [phone] ID#[id number] Ref# [id number]
--- NOTE | 2020-07-01 18:12 | Cardiology Progress Note ---
Assessment/Plan Assessment/Plan 1. Sinus tachycardia, resolved with hydration, continue monitoring hemodynamics , antiemetics for treatment of vomiting. 2. SWATI, resolved creat down to 0.9. 3. Cyclic vomiting syndrome due to THC abuse. 4. Hx of asthma. 5. Hypokalemia, better, but not resolved, due to GI loss. Subjective Subjective No cardiac events. Denies chest pain or SOB. Objective Last 24 Hour Vital Signs Date Time Temp Pulse Resp B/P (MAP) Pulse Ox O2 Delivery O2 Flow Rate FiO2 07/01/20 14:53 89 18 119/77 (91) 100 07/01/20 13:20 120 140/91 07/01/20 12:00 98.2 120 21 140/91 (107) 97 07/01/20 10:26 72 119/72 (88) 07/01/20 09:01 180/119 07/01/20 09:00 Room Air 07/01/20 08:51 97.5 113 22 180/119 (139) 98 07/01/20 08:00 98.3 125 20 160/105 (123) 97 07/01/20 06:12 104 151/89 07/01/20 04:00 97.9 104 20 151/89 (109) 98 07/01/20 00:00 99.3 79 18 127/92 (104) 96 06/30/20 21:16 84 136/93 06/30/20 21:00 Room Air 06/30/20 20:00 99.0 84 18 136/93 (107) 99 Intake and Output 06/30/20 07/01/20 19:00 07:00 Intake Total 300 ml Balance 300 ml Intake Oral 300 ml # Voids 5 2 Laboratory Tests Test 07/01/20 05:05 White Blood Count 16.8 K/UL (4.8-10.8) H Red Blood Count 4.84 M/UL (4.20-5.40) Hemoglobin 14.3 G/DL (12.0-16.0) Hematocrit 42.1 % (37.0-47.0) Mean Corpuscular Volume 87 FL (80-99) Mean Corpuscular Hemoglobin 29.6 PG (27.0-31.0) Mean Corpuscular Hemoglobin Concent 34.0 G/DL (32.0-36.0) Red Cell Distribution Width 11.8 % (11.6-14.8) Platelet Count 278 K/UL (150-450) Mean Platelet Volume 7.2 FL (6.5-10.1) Neutrophils (%) (Auto) % (45.0-75.0) Lymphocytes (%) (Auto) % (20.0-45.0) Monocytes (%) (Auto) % (1.0-10.0) Eosinophils (%) (Auto) % (0.0-3.0) Basophils (%) (Auto) % (0.0-2.0) Differential Total Cells Counted 100 Neutrophils % (Manual) 90 % (45-75) H Lymphocytes % (Manual) 7 % (20-45) L Monocytes % (Manual) 3 % (1-10) Eosinophils % (Manual) 0 % (0-3) Basophils % (Manual) 0 % (0-2) Band Neutrophils 0 % (0-8) Platelet Estimate Adequate Platelet Morphology Normal Red Blood Cell Morphology Normal Sodium Level 138 MMOL/L (136-145) Potassium Level 3.2 MMOL/L (3.5-5.1) L Chloride Level 101 MMOL/L (98-107) Carbon Dioxide Level 21 MMOL/L (21-32) Anion Gap 16 mmol/L (5-15) H Blood Urea Nitrogen 7 mg/dL (7-18) Creatinine 0.8 MG/DL (0.55-1.30) Estimat Glomerular Filtration Rate > 60 mL/min (>60) Glucose Level 128 MG/DL (74-106) H Calcium Level 9.1 MG/DL (8.5-10.1) Phosphorus Level 2.4 MG/DL (2.5-4.9) L Magnesium Level 2.0 MG/DL (1.8-2.4) Total Bilirubin 0.6 MG/DL (0.2-1.0) Aspartate Amino Transf (AST/SGOT) 17 U/L (15-37) Alanine Aminotransferase (ALT/SGPT) 27 U/L (12-78) Alkaline Phosphatase 65 U/L (46-116) Total Protein 7.9 G/DL (6.4-8.2) Albumin 4.4 G/DL (3.4-5.0) Globulin 3.5 g/dL Albumin/Globulin Ratio 1.3 (1.0-2.7) Microbiology Date/Time Source Procedure Growth Status 06/29/20 21:30 Nasopharynx SARS-CoV-2 RdRp Gene Assay - Final Complete Objective HEENT: Atraumatic, normocephalic, PERRLA, EOMI, Dry mucosal membranes. NECK: Cannot assess JVP due to obesity and short neck and current use of BiPAP mask. No carotid bruit. Carotid upstrokes 2+ bilaterally. CARDIOVASCULAR: Normal S1, S2. Regular rate and rhythm. No murmurs, gallops, or rubs. PMI is at fourth intercostal space in the midclavicular line. LUNGS: Clear to auscultation. ABDOMEN: Soft, nondistended. No hepatosplenomegaly. Positive bowel sounds. EXTREMITIES: No evidence of edema, clubbing, or cyanosis. Slim Leon MD Jul 01, 2020 18:12
--- NOTE | 2020-07-01 18:26 | NUR ---
NURSE NOTES: Discussed advancing diet to regular with patient if she wanted to try (to see if she would tolerate prior to discharge plans for tomorrow), agreed. Dr. Wood notified, orders received.
--- NOTE | 2020-07-01 18:33 | NUR ---
NURSE NOTES: Patient just had another small emesis (25 ml) clear. Changed her mind and does not want to try regular diet, no bowel sounds, poor appetite on full liquids. Message left for Dr. Wood, awaiting call back, will endorse to shift mgr.
--- NOTE | 2020-07-01 19:21 | NUR ---
HAND-OFF: Report given to Dusty COLLINS, rounds made, patient requesting Zofran. Endorsed need to follow up with Dr. Wood for diet change order.
--- NOTE | 2020-07-01 19:25 | NUR ---
NURSE NOTES: Pt. received from DENNIS Cartagena. Pt. AAOx4, on room air, breathing even and unlabored, no indications of respiratory distress. Pt. presents with nausea, no active vomiting but requesting Zofran, will administer as ordered. IV noted on left foot intact and patent. Emesis basin noted to have clear emesis. Bed low and locked, side rails x2 up, and call light in reach.
--- NOTE | 2020-07-01 21:59 | General Progress Note ---
Assessment/Plan Problem List: (1) vomiting able to tolerate PO fluids (2) Hypokalemia ICD Codes: E87.6 - Hypokalemia SNOMED: 63828789 (3) Anxiety ICD Codes: F41.9 - Anxiety disorder, unspecified SNOMED: 79921319 (4) Vomiting ICD Codes: R11.10 - Vomiting, unspecified SNOMED: 368820364 (5) Hypercalcemia ICD Codes: E83.52 - Hypercalcemia SNOMED: 17404770 (6) Intractable cyclical vomiting ICD Codes: G43.A1 - Cyclical vomiting, intractable SNOMED: 45201627 (7) Dehydration ICD Codes: E86.0 - Dehydration SNOMED: 04984041 (8) Cannabis abuse ICD Codes: F12.10 - Cannabis abuse, uncomplicated SNOMED: 23801402 Status: progressing Assessment/Plan: increase in wbc repeat cbc in am pt agrees to go in am vomitting Subjective ROS Limited/Unobtainable: Yes Allergies: Coded Allergies: SULFA (SULFONAMIDE ANTIBIOTICS) (Verified Allergy, Unknown, 02/23/11) Objective Last 24 Hour Vital Signs Date Time Temp Pulse Resp B/P (MAP) Pulse Ox O2 Delivery O2 Flow Rate FiO2 07/01/20 21:21 104 159/89 07/01/20 16:00 98.2 113 21 146/92 (110) 97 07/01/20 14:53 89 18 119/77 (91) 100 07/01/20 13:20 120 140/91 07/01/20 12:00 98.2 120 21 140/91 (107) 97 07/01/20 10:26 72 119/72 (88) 07/01/20 09:01 180/119 07/01/20 09:00 Room Air 07/01/20 08:51 97.5 113 22 180/119 (139) 98 07/01/20 08:00 98.3 125 20 160/105 (123) 97 07/01/20 06:12 104 151/89 07/01/20 04:00 97.9 104 20 151/89 (109) 98 07/01/20 00:00 99.3 79 18 127/92 (104) 96 Intake and Output 06/30/20 07/01/20 19:00 07:00 Intake Total 300 ml Balance 300 ml Intake Oral 300 ml # Voids 5 2 Laboratory Tests 07/01/20 05:05: White Blood Count 16.8H, Red Blood Count 4.84, Hemoglobin 14.3, Hematocrit 42.1 , Mean Corpuscular Volume 87, Mean Corpuscular Hemoglobin 29.6, Mean Corpuscular Hemoglobin Concent 34.0, Red Cell Distribution Width 11.8, Platelet Count 278, Mean Platelet Volume 7.2, Neutrophils (%) (Auto) , Lymphocytes (%) ( Auto) , Monocytes (%) (Auto) , Eosinophils (%) (Auto) , Basophils (%) (Auto) , Differential Total Cells Counted 100, Neutrophils % (Manual) 90H, Lymphocytes % (Manual) 7L, Monocytes % (Manual) 3, Eosinophils % (Manual) 0, Basophils % ( Manual) 0, Band Neutrophils 0, Platelet Estimate Adequate, Platelet Morphology Normal, Red Blood Cell Morphology Normal, Sodium Level 138, Potassium Level 3.2L , Chloride Level 101, Carbon Dioxide Level 21, Anion Gap 16H, Blood Urea Nitrogen 7, Creatinine 0.8, Estimat Glomerular Filtration Rate > 60, Glucose Level 128H, Calcium Level 9.1, Phosphorus Level 2.4L, Magnesium Level 2.0, Total Bilirubin 0.6, Aspartate Amino Transf (AST/SGOT) 17, Alanine Aminotransferase (ALT/SGPT) 27, Alkaline Phosphatase 65, Total Protein 7.9, Albumin 4.4, Globulin 3.5, Albumin/Globulin Ratio 1.3 Height (Feet): 5 Height (Inches): 8.00 Weight (Pounds): 167 Haresh Capone MD Jul 01, 2020 21:59
--- NOTE | 2020-07-01 23:17 | Psych Consult Progress Note ---
Psychiatry Progress Note Psychiatry Progress Note Medications Current Medications Medications (Trade) Dose Ordered Sig/Shanta Route PRN Reason Start Time Stop Time Status Last Admin Dose Admin Acetaminophen (Tylenol) 650 mg Q4H PRN ORAL Mild Pain (1-3)/ Temp 100.5 06/28/20 20:45 07/28/20 20:44 Amitriptyline HCl (Elavil) 50 mg BEDTIME ORAL 06/29/20 21:00 07/29/20 20:59 07/01/20 20:04 Clonidine HCl (Catapres Tab) 0.1 mg Q6H PRN ORAL For High Blood Pressure 06/29/20 20:45 09/27/20 20:44 07/01/20 09:01 Dextrose/ Electrolytes 1,000 ml @ 50 mls/hr Q20H IV 07/01/20 10:00 07/31/20 09:59 07/01/20 10:30 Diltiazem HCl (Cardizem Tab) 30 mg EVERY 8 HOURS ORAL 06/29/20 22:00 07/29/20 21:59 07/01/20 21:21 Docusate Sodium (Colace) 100 mg THREE TIMES A DAY ORAL 06/30/20 13:00 07/30/20 12:59 07/01/20 18:14 Escitalopram Oxalate (Lexapro) 10 mg DAILY ORAL 07/01/20 09:00 07/31/20 08:59 07/01/20 08:24 Lorazepam (Ativan 2mg/ml 1ml) 1 mg Q6H PRN IV For Anxiety 06/29/20 17:00 07/06/20 16:59 07/01/20 05:45 Metoclopramide HCl (Reglan) 10 mg Q6H IVP 07/01/20 12:00 07/02/20 06:01 07/01/20 18:14 Mirtazapine (Remeron) 7.5 mg BEDTIME ORAL 06/29/20 21:00 09/27/20 20:59 07/01/20 20:04 Morphine Sulfate (Morphine Sulfate) 2 mg Q6H PRN IVP Severe Pain (Pain Scale 7-10) 06/28/20 21:20 07/05/20 21:19 07/01/20 21:21 Ondansetron HCl (Zofran) 8 mg Q6H PRN IVP Nausea & Vomiting 06/30/20 11:45 07/30/20 11:44 07/01/20 19:51 Pantoprazole (Protonix) 40 mg EVERY 12 HOURS ORAL 06/30/20 21:00 07/30/20 20:59 07/01/20 20:04 Potassium Chloride (K-Dur) 40 meq DAILY ORAL 07/01/20 09:00 09/29/20 08:59 07/01/20 08:24 Neurological/Psychiatric: Reports: anxiety, depressed Allergies: Coded Allergies: SULFA (SULFONAMIDE ANTIBIOTICS) (Verified Allergy, Unknown, 02/23/11) Objective Data Height (Feet): 5 Height (Inches): 8.00 Weight (Pounds): 167 General Appearance: WD/WN, alert, moderate distress Additional Comments: Alert and oriented times self, place, situation, and date. Mood is anxious and dysphoric. Affect is constricted, congruent with mood. Thought process is concrete. Thought content, there is no suicidal or homicidal ideation. Cognition is intact. Insight and judgment is fair. Assessment/Plan Status: progressing Assessment/Plan: ASSESSMENT: [place] I Anxiety disorder. Cannabis abuse versus dependence. [place] II Deferred. [place] III As above. [place] IV Low. [place] V 50. PLAN: 1. Remeron 7.5 at bedtime. 2. Ativan IV. 3. Provide the patient with reality orientation and supportive therapy. 4. Lexapro 10mg po Jonathan Aguirre MD Jul 01, 2020 23:17
[2020-07-02] VITALS: BP 161/114
[2020-07-02] MEDS: LORazepam Inj 2mg/ml 1ml IV PRN
[2020-07-02 04:00] VITALS: BP 113/74
[2020-07-02] MEDS: Metoclopramide 10mg/2ml Inj IVP SCH ×2 (05:20)
[2020-07-02] MEDS: dilTIAZem HCl 30mg tab ORAL SCH ×2 (05:20→14:22)
[2020-07-02] MEDS: D5NS w/KCl 40mEq 1000ml 1,000 ML IV SCH (05:20)
[2020-07-02 06:22] LABS: BASOPHILS % (AUTO) 0.7 % (0.0-2.0); EOSINOPHILS % (AUTO) 0.1 % (0.0-3.0); HEMATOCRIT 38.7 % (37.0-47.0); HEMOGLOBIN 13.1 G/DL (12.0-16.0); LYMPHOCYTES % (AUTO) 30.3 % (20.0-45.0); MEAN CORPUSCULAR VOLUME 88 FL (80-99); MONOCYTES % (AUTO) 6.1 % (1.0-10.0); NEUTROPHILS % (AUTO) 62.8 % (45.0-75.0); PLATELET COUNT 257 K/UL (150-450); RED BLOOD COUNT 4.39 M/UL (4.20-5.40); RED CELL DISTRIBUTION WIDTH 11.6 % (11.6-14.8); WHITE BLOOD COUNT 10.8 K/UL (4.8-10.8)
[2020-07-02 07:04] LABS: ALANINE AMINOTRANSFERASE 21 U/L (12-78); ALBUMIN 3.7 G/DL (3.4-5.0); ALBUMIN/GLOBULIN RATIO 1.2 (1.0-2.7); ALKALINE PHOSPHATASE 61 U/L (46-116); ANION GAP 10 mmol/L (5-15); ASPARTATE AMINO TRANSFERASE 13 U/L (15-37); BILIRUBIN,TOTAL 0.6 MG/DL (0.2-1.0); BLOOD UREA NITROGEN 10 mg/dL (7-18); CALCIUM 8.7 MG/DL (8.5-10.1); CARBON DIOXIDE 25 MMOL/L (21-32); CHLORIDE 105 MMOL/L (98-107); PHOSPHORUS 3.1 MG/DL (2.5-4.9); POTASSIUM 3.3 MMOL/L (3.5-5.1); SODIUM 140 MMOL/L (136-145)
--- NOTE | 2020-07-02 07:09 | NUR ---
NURSE NOTES: Report received from Dusty COLLINS, rounds made. Patient sleeping, no distress. Respirations even/unlabored on RA. Left foot IV, site intact, asymptomatic, NS at 10 ml/hr with D5 NS + 40KCL at 50 ml/hr. Bilateral SCDs off. Call light in reach, bed in lowest position, will continue to monitor.
--- NOTE | 2020-07-02 07:14 | NUR ---
HAND-OFF: Report given to DENNIS Cartagena.
[2020-07-02 08:00] VITALS: BP 132/74
[2020-07-02] MEDS: Docusate 100mg cap ORAL SCH ×2 (09:52→13:00)
--- NOTE | 2020-07-02 10:45 | NUR ---
NURSE NOTES: Patient tolerated 10% of breakfast, mild nausea , no emesis. Refuses to be advanced with her diet. Plans for discharge home today, patient agrees and states, "I'm feeling a lot better."
[2020-07-02] MEDS: Morphine Sulfate 2mg/ml Inj(IV/IM USE ONLY) IVP PRN (10:53)
--- NOTE | 2020-07-02 11:52 | Nephrology Progress Note ---
Assessment/Plan Problem List: (1) Intractable nausea and vomiting (2) Cyclic vomiting syndrome (3) Cannabis abuse (4) Dehydration (5) Hypokalemia (6) Accelerated hypertension Assessment Cyclical vomiting syndrome Narcotic dependency Marijuana abuse Sulfa allergy Electrolytes imbalance Plan July 02: Patient GI symptoms resolved. PMD discharge the patient. Patient advised to cut down on using marijuana. Advised to be compliant with medications. July 01: Patient vomited again this morning. Will change Reglan to IV. Slow hydration will be again initiated. Potassium and phosphorus supplement IV given will check lab tomorrow. Will check chest x-ray. White blood cells burke to over 16,000. On Cardizem for blood pressure Now on clear liquids DC IV hydration Electrolyte supplement, KCl and potassium phosphate IV given IV Reglan, 4 doses then p.o. Continue as per GI/pain management advice Subjective ROS Limited/Unobtainable: No Interval Events/Complaints Feels well wants to be discharged no more nausea no more vomiting Constitutional: Reports: no symptoms Objective Objective Last 24 Hour Vital Signs Date Time Temp Pulse Resp B/P (MAP) Pulse Ox O2 Delivery O2 Flow Rate FiO2 07/02/20 08:00 98.3 103 18 132/74 (93) 99 07/02/20 05:20 97 113/74 07/02/20 04:00 98.1 97 20 113/74 (87) 99 07/02/20 00:09 161/114 07/02/20 00:00 98.1 100 20 161/114 (130) 100 07/01/20 21:21 104 159/89 07/01/20 21:00 Room Air 07/01/20 20:00 98.6 104 20 159/89 (112) 99 07/01/20 16:00 98.2 113 21 146/92 (110) 97 07/01/20 14:53 89 18 119/77 (91) 100 07/01/20 13:20 120 140/91 07/01/20 12:00 98.2 120 21 140/91 (107) 97 Intake and Output 07/01/20 07/02/20 19:00 07:00 Intake Total 400 ml 800 ml Output Total 125 ml 150 ml Balance 275 ml 650 ml Intake Oral 250 ml IV Total 400 ml 550 ml Output Emesis 125 ml 150 ml # Voids 2 Current Medications Medications (Trade) Dose Ordered Sig/Shanta Route PRN Reason Start Time Stop Time Status Last Admin Dose Admin Acetaminophen (Tylenol) 650 mg Q4H PRN ORAL Mild Pain (1-3)/ Temp 100.5 06/28/20 20:45 07/28/20 20:44 Amitriptyline HCl (Elavil) 50 mg BEDTIME ORAL 06/29/20 21:00 07/29/20 20:59 07/01/20 20:04 Clonidine HCl (Catapres Tab) 0.1 mg Q6H PRN ORAL For High Blood Pressure 06/29/20 20:45 09/27/20 20:44 07/02/20 00:09 Dextrose/ Electrolytes 1,000 ml @ 50 mls/hr Q20H IV 07/01/20 10:00 07/31/20 09:59 07/02/20 05:20 Diltiazem HCl (Cardizem Tab) 30 mg EVERY 8 HOURS ORAL 06/29/20 22:00 07/29/20 21:59 07/02/20 05:20 Docusate Sodium (Colace) 100 mg THREE TIMES A DAY ORAL 06/30/20 13:00 07/30/20 12:59 07/02/20 09:52 Escitalopram Oxalate (Lexapro) 10 mg DAILY ORAL 07/01/20 09:00 07/31/20 08:59 07/02/20 09:52 Lorazepam (Ativan 2mg/ml 1ml) 1 mg Q6H PRN IV For Anxiety 06/29/20 17:00 07/06/20 16:59 07/02/20 00:00 Mirtazapine (Remeron) 7.5 mg BEDTIME ORAL 06/29/20 21:00 09/27/20 20:59 07/01/20 20:04 Morphine Sulfate (Morphine Sulfate) 2 mg Q6H PRN IVP Severe Pain (Pain Scale 7-10) 06/28/20 21:20 07/05/20 21:19 07/02/20 10:53 Ondansetron HCl (Zofran) 8 mg Q6H PRN IVP Nausea & Vomiting 06/30/20 11:45 07/30/20 11:44 07/02/20 10:52 Pantoprazole (Protonix) 40 mg EVERY 12 HOURS ORAL 7/30/20 21:00 07/30/20 20:59 07/02/20 09:52 Potassium Chloride (K-Dur) 40 meq DAILY ORAL 07/01/20 09:00 09/29/20 08:59 07/02/20 09:52 Laboratory Tests 07/02/20 05:55: White Blood Count 10.8, Red Blood Count 4.39, Hemoglobin 13.1, Hematocrit 38.7, Mean Corpuscular Volume 88, Mean Corpuscular Hemoglobin 29.8, Mean Corpuscular Hemoglobin Concent 33.8, Red Cell Distribution Width 11.6, Platelet Count 257, Mean Platelet Volume 7.0, Neutrophils (%) (Auto) 62.8, Lymphocytes (%) (Auto) 30.3, Monocytes (%) (Auto) 6.1, Eosinophils (%) (Auto) 0.1, Basophils (%) (Auto ) 0.7, Sodium Level 140, Potassium Level 3.3L, Chloride Level 105, Carbon Dioxide Level 25, Anion Gap 10, Blood Urea Nitrogen 10, Creatinine 1.0, Estimat Glomerular Filtration Rate > 60, Glucose Level 110H, Uric Acid 4.3, Calcium Level 8.7, Phosphorus Level 3.1, Magnesium Level 2.2, Total Bilirubin 0.6, Aspartate Amino Transf (AST/SGOT) 13L, Alanine Aminotransferase (ALT/SGPT) 21, Alkaline Phosphatase 61, C-Reactive Protein, Quantitative 1.2H, Total Protein 6.8, Albumin 3.7, Globulin 3.1, Albumin/Globulin Ratio 1.2, Lipase 158 Height (Feet): 5 Height (Inches): 8.00 Weight (Pounds): 167 General Appearance: no apparent distress Respiratory/Chest: lungs clear Abdomen: soft Objective No change Jadon Olivier MD Jul 02, 2020 11:52
[2020-07-02 12:00] VITALS: BP 122/91
--- NOTE | 2020-07-02 13:21 | NUR ---
CASE MANAGEMENT: REVIEW 07/02/2020 SI:Cyclic vomiting syndrome. Intractable nausea and vomiting. VS: T 98.3 HR 103 RR 18 B/P 132/74 SATS 99% ON RA LABS: K 3.3 GLU 110 AST 13 CRP 1.2 IS:CARDIZEM PO Q8H ELAVIL PO QHS LEXAPRO PO QD KDUR PO QD MED/SURG
[2020-07-02 14:22] VITALS: BP 122/91
--- NOTE | 2020-07-02 15:42 | NUR ---
NURSE NOTES: Discharge instructions reviewed with patient, verbalized understanding. All belongings and discharge instructions given to patient. Left foot IV discontinued, no active bleeding. Patient ambulated downstairs with RN, in stable condition. Discharged home at 1542.
[2020-07-02] MEDS ORDERED: Tubing IV Secondary IV ONE (15:44)
--- NOTE | 2020-07-02 16:15 | General Progress Note ---
Assessment/Plan Status: progressing Assessment/Plan: Assessment Problem List: (1) Cyclic vomiting syndrome ICD Codes: G43.A0 - Cyclical vomiting, not intractable SNOMED: 80633657 (2) Cannabis abuse ICD Codes: F12.10 - Cannabis abuse, uncomplicated SNOMED: 16279384 (3) Dehydration ICD Codes: E86.0 - Dehydration SNOMED: 98776234 (4) Intractable nausea and vomiting ICD Codes: R11.2 - Nausea with vomiting, unspecified SNOMED: 654819760, 129768930 Plan: advance diet ivf nausea meds avoid THC elavil 50 mg recommend psych eval Subjective Allergies: Coded Allergies: SULFA (SULFONAMIDE ANTIBIOTICS) (Verified Allergy, Unknown, 02/23/11) Subjective feels better today no vomiting Objective Last 24 Hour Vital Signs Date Time Temp Pulse Resp B/P (MAP) Pulse Ox O2 Delivery O2 Flow Rate FiO2 07/02/20 14:22 94 122/91 07/02/20 12:00 98.0 94 20 122/91 (101) 99 07/02/20 09:00 Room Air 07/02/20 08:00 98.3 103 18 132/74 (93) 99 07/02/20 05:20 97 113/74 07/02/20 04:00 98.1 97 20 113/74 (87) 99 07/02/20 00:09 161/114 07/02/20 00:00 98.1 100 20 161/114 (130) 100 07/01/20 21:21 104 159/89 07/01/20 21:00 Room Air 07/01/20 20:00 98.6 104 20 159/89 (112) 99 Intake and Output 07/01/20 07/02/20 19:00 07:00 Intake Total 400 ml 850 ml Output Total 125 ml 150 ml Balance 275 ml 700 ml Intake Oral 250 ml IV Total 400 ml 600 ml Output Emesis 125 ml 150 ml # Voids 2 Laboratory Tests 07/02/20 05:55: White Blood Count 10.8, Red Blood Count 4.39, Hemoglobin 13.1, Hematocrit 38.7, Mean Corpuscular Volume 88, Mean Corpuscular Hemoglobin 29.8, Mean Corpuscular Hemoglobin Concent 33.8, Red Cell Distribution Width 11.6, Platelet Count 257, Mean Platelet Volume 7.0, Neutrophils (%) (Auto) 62.8, Lymphocytes (%) (Auto) 30.3, Monocytes (%) (Auto) 6.1, Eosinophils (%) (Auto) 0.1, Basophils (%) (Auto ) 0.7, Sodium Level 140, Potassium Level 3.3L, Chloride Level 105, Carbon Dioxide Level 25, Anion Gap 10, Blood Urea Nitrogen 10, Creatinine 1.0, Estimat Glomerular Filtration Rate > 60, Glucose Level 110H, Uric Acid 4.3, Calcium Level 8.7, Phosphorus Level 3.1, Magnesium Level 2.2, Total Bilirubin 0.6, Aspartate Amino Transf (AST/SGOT) 13L, Alanine Aminotransferase (ALT/SGPT) 21, Alkaline Phosphatase 61, C-Reactive Protein, Quantitative 1.2H, Total Protein 6.8, Albumin 3.7, Globulin 3.1, Albumin/Globulin Ratio 1.2, Lipase 158 Height (Feet): 5 Height (Inches): 8.00 Weight (Pounds): 167 Objective Obese WW NCAT supple CTA RR Abd soft ND NT no edema Monika Cheney MD Jul 02, 2020 16:15
--- NOTE | 2020-07-02 22:43 | Cardiology Progress Note ---
Assessment/Plan Assessment/Plan 1. Sinus tachycardia, resolved with hydration, continue monitoring hemodynamics , antiemetics for treatment of vomiting. 2. SWATI, resolved creat down to 0.9. 3. Cyclic vomiting syndrome due to THC abuse. 4. Hx of asthma. 5. Hypokalemia, persistent, due to GI loss. Subjective Subjective No cardiac events reported. Objective Last 24 Hour Vital Signs Date Time Temp Pulse Resp B/P (MAP) Pulse Ox O2 Delivery O2 Flow Rate FiO2 07/02/20 14:22 94 122/91 07/02/20 12:00 98.0 94 20 122/91 (101) 99 07/02/20 09:00 Room Air 07/02/20 08:00 98.3 103 18 132/74 (93) 99 07/02/20 05:20 97 113/74 07/02/20 04:00 98.1 97 20 113/74 (87) 99 07/02/20 00:09 161/114 07/02/20 00:00 98.1 100 20 161/114 (130) 100 Intake and Output 07/01/20 07/02/20 19:00 07:00 Intake Total 400 ml 850 ml Output Total 125 ml 150 ml Balance 275 ml 700 ml Intake Oral 250 ml IV Total 400 ml 600 ml Output Emesis 125 ml 150 ml # Voids 2 Laboratory Tests Test 07/02/20 05:55 White Blood Count 10.8 K/UL (4.8-10.8) Red Blood Count 4.39 M/UL (4.20-5.40) Hemoglobin 13.1 G/DL (12.0-16.0) Hematocrit 38.7 % (37.0-47.0) Mean Corpuscular Volume 88 FL (80-99) Mean Corpuscular Hemoglobin 29.8 PG (27.0-31.0) Mean Corpuscular Hemoglobin Concent 33.8 G/DL (32.0-36.0) Red Cell Distribution Width 11.6 % (11.6-14.8) Platelet Count 257 K/UL (150-450) Mean Platelet Volume 7.0 FL (6.5-10.1) Neutrophils (%) (Auto) 62.8 % (45.0-75.0) Lymphocytes (%) (Auto) 30.3 % (20.0-45.0) Monocytes (%) (Auto) 6.1 % (1.0-10.0) Eosinophils (%) (Auto) 0.1 % (0.0-3.0) Basophils (%) (Auto) 0.7 % (0.0-2.0) Sodium Level 140 MMOL/L (136-145) Potassium Level 3.3 MMOL/L (3.5-5.1) L Chloride Level 105 MMOL/L (98-107) Carbon Dioxide Level 25 MMOL/L (21-32) Anion Gap 10 mmol/L (5-15) Blood Urea Nitrogen 10 mg/dL (7-18) Creatinine 1.0 MG/DL (0.55-1.30) Estimat Glomerular Filtration Rate > 60 mL/min (>60) Glucose Level 110 MG/DL (74-106) H Uric Acid 4.3 MG/DL (2.6-7.2) Calcium Level 8.7 MG/DL (8.5-10.1) Phosphorus Level 3.1 MG/DL (2.5-4.9) Magnesium Level 2.2 MG/DL (1.8-2.4) Total Bilirubin 0.6 MG/DL (0.2-1.0) Aspartate Amino Transf (AST/SGOT) 13 U/L (15-37) L Alanine Aminotransferase (ALT/SGPT) 21 U/L (12-78) Alkaline Phosphatase 61 U/L (46-116) C-Reactive Protein, Quantitative 1.2 mg/dL (0.00-0.90) H Total Protein 6.8 G/DL (6.4-8.2) Albumin 3.7 G/DL (3.4-5.0) Globulin 3.1 g/dL Albumin/Globulin Ratio 1.2 (1.0-2.7) Lipase 158 U/L (73-393) Objective HEENT: Atraumatic, normocephalic, PERRLA, EOMI, Dry mucosal membranes. NECK: Cannot assess JVP due to obesity and short neck and current use of BiPAP mask. No carotid bruit. Carotid upstrokes 2+ bilaterally. CARDIOVASCULAR: Normal S1, S2. Regular rate and rhythm. No murmurs, gallops, or rubs. PMI is at fourth intercostal space in the midclavicular line. LUNGS: Clear to auscultation. ABDOMEN: Soft, nondistended. No hepatosplenomegaly. Positive bowel sounds. EXTREMITIES: No evidence of edema, clubbing, or cyanosis. Slim Leon MD Jul 02, 2020 22:43
--- NOTE | 2020-07-03 16:49 | NUR ---
*-* INSURANCE *-* UPDATED CLINICALS/ REVIEWS and DC instructions HAVE BEEN FAXED TO: [employer] F: [phone] ID#[id number] Ref# [id number]
--- NOTE | 2020-07-05 21:32 | Discharge Summary ---
Discharge Summary Discharge Summary _ DATE OF ADMISSION: 06/28/2020 DATE OF DISCHARGE: 07/01/2020 DISCHARGED BY: Dr. Haresh Randall CONSULTANTS: Dr. Slim iMnor [facility] HOSPITAL COURSE: Patient is a 35-year-old female, with past medical history of cyclical vomiting due to THC, who presented to ED complaining of vomiting and epigastric pain. She denied fever or chills. Denied diarrhea. Denied chest pain or shortness of breath. Denied dysuria or hematuria. Upon evaluation at ED, blood work showed WBC elevated to 12. Hemoglobin and hematocrit were stable. Creatinine was elevated to 1.2. LFTs normal. Lipase normal. Urine toxicology screen was positive for THC. She continued to have persistent nausea and vomiting despite medications. Patient was then admitted for further evaluation and management. She was placed on n.p.o. She was given IV hydration. She was given IV Reglan. Pain management was consulted. She was given morphine. She was given Zofran. She was evaluated by GI. Diet was advanced. Patient has anxiety disorder and would only take IV Ativan and Zofran. She was started on Remeron 7.5 mg nightly. She was also given Elavil 50 mg and Lexapro. Patient has severe and persistent hypokalemia. Very good. Good she was given potassium and phosphorus replacement. She was placed on Cardizem for blood pressure support. Patient had episodes of tachycardia. Tachycardia most likely due to intravascular volume depletion. Per provisioning specialist, no AV jad agent is required. WBC went up to 16,000. Chest x-ray did not show any acute cardiopulmonary disease. SARS-CoV-2 testing was negative. GI symptoms resolved. Patient was counseled to stop using marijuana. FINAL DIAGNOSES: Cyclic vomiting syndrome due to THC abuse Sinus tachycardia, resolved Acute kidney injury Hypokalemia Dehydration Intractable nausea and vomiting Accelerated hypertension Narcotic dependency Marijuana abuse Anxiety disorder DISPOSITION: Patient was discharged home. DISCHARGE MEDICATIONS: Refer to Discharge Medication List. DISCHARGE INSTRUCTIONS: Follow-up in a week. I have been assigned to complete a discharge summary on this account, I was not involved with the patient's management.--WALDO Allison Jacqueline Robles NP Jul 05, 2020 21:32
== END 2020-07-02 15:45 | disposition home or self-care (01) | DRG 394 ==
LOC: EMR 12:24 → 3E 17:10 → EDBEDREQ 17:54
DX: R11.15 Cyclical vomiting syndrome unrelated to migraine (principal); R65.10 Systemic inflammatory response syndrome (SIRS) of non-infectious origin without acute organ dysfunction; N17.9 Acute kidney failure, unspecified; F11.20 Opioid dependence, uncomplicated; F12.188 Cannabis abuse with other cannabis-induced disorder; E83.52 Hypercalcemia; E86.0 Dehydration; K21.9 Gastro-esophageal reflux disease without esophagitis; Z88.2 Allergy status to sulfonamides; F41.9 Anxiety disorder, unspecified; G47.00 Insomnia, unspecified; E87.6 Hypokalemia; R00.0 Tachycardia, unspecified
CPT/HCPCS: 36415; 71045; 80053; 80061; 80307; 81003; 81025; 82977; 83690; 83735; 84100; 84443; 84550; 85007; 85025; 86140; 87086; 93005; 96361; 96365; 96372; 96375; 99285; J2405; J2765; J7030; J8499; U0002

== ENCOUNTER 2020-07-04 00:39 | Inpatient (IN) | payer OTHER ==
[~2020-07-04] VITALS: Ht 172.7 cm; Wt 69.9 kg
[2020-07-04] VITALS (9 sets, daily range): BP systolic 125–194; BP diastolic 78–126
[~2020-07-04 00:39] MED LIST changes: +FAMOTIDINE20 MG ORAL; +PHENERGAN25 M1 ORAL
[2020-07-04] MEDS ORDERED: LORazepam Inj 2mg/ml 1ml IV ONE (01:00)
[2020-07-04] MEDS ORDERED: Nitroglycerin Subl 0.4mg tab SL PRN (01:15)
[2020-07-04 01:17] LABS: EOSINOPHILS % (AUTO) 0.7 % (0.0-3.0); HEMATOCRIT 41.5 % (37.0-47.0); HEMOGLOBIN 14.1 G/DL (12.0-16.0); MEAN CORPUSCULAR VOLUME 88 FL (80-99); MONOCYTES % (AUTO) 5.8 % (1.0-10.0); NEUTROPHILS % (AUTO) 60.6 % (45.0-75.0); PLATELET COUNT 310 K/UL (150-450); RED BLOOD COUNT 4.72 M/UL (4.20-5.40); RED CELL DISTRIBUTION WIDTH 11.9 % (11.6-14.8); WHITE BLOOD COUNT 14.2 K/UL (4.8-10.8)
[2020-07-04 01:18] LABS: APPEARANCE,URINE CLEAR; BILIRUBIN, URINE NEGATIVE (NEGATIVE); COLOR,URINE PALE YELLOW; GLUCOSE, URINE (UA) NEGATIVE (NEGATIVE); KETONES,URINE 1+ (NEGATIVE); LEUKOCYTE ESTERASE ,URINE NEGATIVE (NEGATIVE); NITRITE,URINE NEGATIVE (NEGATIVE); PH,URINE 6 (4.5-8.0); PROTEIN,URINE NEGATIVE (NEGATIVE); UROBILINOGEN,URINE NORMAL MG/DL (0.0-1.0)
[2020-07-04 01:28] LABS: ANION GAP 16 mmol/L (5-15); BLOOD UREA NITROGEN 13 mg/dL (7-18); CALCIUM 9.2 MG/DL (8.5-10.1); CARBON DIOXIDE 22 MMOL/L (21-32); CHLORIDE 103 MMOL/L (98-107); CREATININE 1.2 MG/DL (0.55-1.30); POTASSIUM 3.3 MMOL/L (3.5-5.1); SODIUM 141 MMOL/L (136-145)
[2020-07-04] MEDS ORDERED: Haloperidol Lactate 5 MG in D5W 55 ML IVPB ONE (01:30)
[2020-07-04 01:32] LABS: ALANINE AMINOTRANSFERASE 23 U/L (12-78); ALBUMIN 4.3 G/DL (3.4-5.0); ALBUMIN/GLOBULIN RATIO 1.3 (1.0-2.7); ALKALINE PHOSPHATASE 64 U/L (46-116); ASPARTATE AMINO TRANSFERASE 15 U/L (15-37); BILIRUBIN,TOTAL 0.3 MG/DL (0.2-1.0)
--- NOTE | 2020-07-04 01:39 | Emergency Room Report ---
History of Present Illness General Chief Complaint: Nausea Source: Patient Present Illness HPI Patient is a 35-year-old female who presents after increased nausea and vomiting. Reports having a generalized abdominal pain. Similar symptoms in the past and had previous history of cyclic vomiting syndrome. She reports having eaten sandwich as well as some ice cream and subsequently began having recurrence of vomiting. She had recently been discharged from the hospital. She denies any recent marijuana use. Multiple similar visits with similar symptoms in the past. Prior history of anxiety. She had recently been diagnosed with hypertension and been given prescription for medications. Allergies: Coded Allergies: SULFA (SULFONAMIDE ANTIBIOTICS) (Verified Allergy, Unknown, 02/23/11) COVID-19 Screening Contact w/high risk pt: No Recent Travel to affected area: No Experienced COVID-19 symptoms?: No COVID-19 Testing performed SHOE CUTTER: No Patient History Past Medical History: see triage record Now: No Reviewed Nursing Documentation: PMH: Agreed; PSxH: Agreed Nursing Documentation-PMH Past Medical History: No History, Except For Hx Cardiac Problems: No Hx Hypertension: No Hx Pacemaker: No Hx Asthma: Yes Hx COPD: No Hx Diabetes: No Hx Cancer: No Hx Gastrointestinal Problems: Yes - cyclic vomiting syndrome Hx Dialysis: No Hx Neurological Problems: No Hx Cerebrovascular Accident: No Hx Transient Ischemic Attacks: No Hx Dementia: No Hx Alzheimer's Disease: No Hx Parkinson's Disease: No Hx Meningitis: No Hx Encephalitis: No Hx Seizures: No Hx Epilepsy: No Hx Multiple Sclerosis: No Hx Cerebral Palsy: No Hx Amyotrophic Lat Sclerosis: No Hx Guillian-[place] Syndrome: No Hx Paralysis: No Hx Peripheral Neuropathy: No Hx Spinal Cord Injury: No Hx Head Trauma: No Hx Traumatic Brain Injury: No Hx Memory Loss: No Hx Concentration Difficulty: No Hx Speech Problem: No Hx Tremors: No Hx Vertigo: No Hx Dizziness: No Hx Syncope: No Hx Headaches: No Hx Aphasia: No Hx Dysphasia: No Hx Numbness: No Hx Weakness: No Hx Fatigue: No Hx Neurologic Surgery: No Hx Brain Shunt: No Review of Systems All Other Systems: negative except mentioned in HPI Physical Exam Vital Signs Date Time Temp Pulse Resp B/P (MAP) Pulse Ox O2 Delivery O2 Flow Rate FiO2 07/04/20 00:42 98.2 99 20 182/123 (142) 100 Room Air Sp02 EP Interpretation: reviewed, normal General Appearance: normal inspection, well appearing, no apparent distress, alert, GCS 15 Head: atraumatic ENT: normal ENT inspection, hearing grossly normal, normal voice Neck: normal inspection, full range of motion, supple, no bony tend Respiratory: normal inspection, lungs clear, normal breath sounds, no respiratory distress, no retraction, no wheezing Cardiovascular #1: regular rate, rhythm, no edema Gastrointestinal: normal inspection, normal bowel sounds, non tender, soft, no guarding, no hernia Genitourinary: no CVA tenderness Musculoskeletal: normal inspection, back normal, normal range of motion Neurologic: alert, motor strength/tone normal, plaster caster III-XII nml as tested, oriented x3, responsive, speech normal, normal inspection Psychiatric: judgement/insight normal, mood/affect normal, anxious Medical Decision Making Diagnostic Impression: Primary Impression: Abdominal pain Additional Impression: Cyclic vomiting syndrome ER Course She presented for vomiting and abdominal discomfort. Differential diagnosis include was not limited to cyclic vomiting syndrome, dehydration, hypertensive crisis among others. Because of complexity of patient's case laboratory tests were ordered. Patient was noted to have multiple ER visits and had previous episodes like this in the past. EKG interpreted by me showed sinus tachycardia with a rate of [address] changes. QTC was noted to be minimally prolonged at 475. Patient was given IV fluids. She was also given IV Zofran and subsequently Haldol after pain persisted. Patient was noted to have persistent nausea. Patient was started on IV fluids. Laboratory testing showed some mild acidosis without evidence of significant anemia or electrolyte disturbances. Patient would be admitted for further evaluation and treatment of intractable vomiting. Labs Test 07/04/20 01:00 White Blood Count 14.2 K/UL (4.8-10.8) Red Blood Count 4.72 M/UL (4.20-5.40) Hemoglobin 14.1 G/DL (12.0-16.0) Hematocrit 41.5 % (37.0-47.0) Mean Corpuscular Volume 88 FL (80-99) Mean Corpuscular Hemoglobin 29.8 PG (27.0-31.0) Mean Corpuscular Hemoglobin Concent 33.9 G/DL (32.0-36.0) Red Cell Distribution Width 11.9 % (11.6-14.8) Platelet Count 310 K/UL (150-450) Mean Platelet Volume 6.7 FL (6.5-10.1) Neutrophils (%) (Auto) 60.6 % (45.0-75.0) Lymphocytes (%) (Auto) 32.0 % (20.0-45.0) Monocytes (%) (Auto) 5.8 % (1.0-10.0) Eosinophils (%) (Auto) 0.7 % (0.0-3.0) Basophils (%) (Auto) 1.0 % (0.0-2.0) Prothrombin Time 10.9 SEC (9.30-11.50) Prothromb Time International Ratio 1.0 (0.9-1.1) Activated Partial Thromboplast Time 24 SEC (23-33) Urine Color Pale yellow Urine Appearance Clear Urine pH 6 (4.5-8.0) Urine Specific [place] 1.015 (1.005-1.035) Urine Protein Negative (NEGATIVE) Urine Glucose (UA) Negative (NEGATIVE) Urine Ketones 1+ (NEGATIVE) Urine Blood 2+ (NEGATIVE) Urine Nitrite Negative (NEGATIVE) Urine Bilirubin Negative (NEGATIVE) Urine Urobilinogen Normal MG/DL (0.0-1.0) Urine Leukocyte Esterase Negative (NEGATIVE) Urine RBC 2-4 /HPF (0 - 2) Urine WBC 0-2 /HPF (0 - 2) Urine Squamous Epithelial Cells Few /LPF (NONE/OCC) Urine Bacteria None /HPF (NONE) Urine HCG, Qualitative Negative (NEGATIVE) Sodium Level 141 MMOL/L (136-145) Potassium Level 3.3 MMOL/L (3.5-5.1) Chloride Level 103 MMOL/L (98-107) Carbon Dioxide Level 22 MMOL/L (21-32) Anion Gap 16 mmol/L (5-15) Blood Urea Nitrogen 13 mg/dL (7-18) Creatinine 1.2 MG/DL (0.55-1.30) Estimat Glomerular Filtration Rate 51.7 mL/min (>60) Glucose Level 134 MG/DL (74-106) Calcium Level 9.2 MG/DL (8.5-10.1) Total Bilirubin 0.3 MG/DL (0.2-1.0) Aspartate Amino Transf (AST/SGOT) 15 U/L (15-37) Alanine Aminotransferase (ALT/SGPT) 23 U/L (12-78) Alkaline Phosphatase 64 U/L (46-116) Total Protein 7.7 G/DL (6.4-8.2) Albumin 4.3 G/DL (3.4-5.0) Globulin 3.4 g/dL Albumin/Globulin Ratio 1.3 (1.0-2.7) Lipase 298 U/L (73-393) Last Vital Signs Date Time Temp Pulse Resp B/P (MAP) Pulse Ox O2 Delivery O2 Flow Rate FiO2 07/04/20 00:42 98.2 99 20 182/123 (142) 100 Room Air Status: improved Disposition: ADMITTED INPATIENT Condition: Stable Scripts Ondansetron Odt* (ZOFRAN ODT*) 4 Mg Tab.rapdis 4 MG BC EVERY 8 HOURS, #10 TAB 0 Refills Prov: Sj Hill MD 07/04/20 Referrals: NOT CHOSEN IPA/,REFERRING (PCP) Sj Hill MD Jul 04, 2020 01:39
[2020-07-04] MEDS ORDERED: ONDANSETRON ODT4 MG BC ×2 (03:34)
[2020-07-04] MEDS ORDERED: Acetaminophen 650 MG SUPP RECTAL PRN ×2 (09:00)
--- NOTE | 2020-07-04 09:38 | Consultation ---
History of Present Illness General Chief Complaint: Nausea Reason for Consultation: SWATI, hypokalemia Present Illness HPI Patient is a 35-year-old female who presents after increased nausea and vomiting. Reports having a generalized abdominal pain for 5 days. Non radiating , no alleviating factors. Normal BMs. Similar symptoms in the past and had previous history of cyclic vomiting syndrome. She reports having eaten sandwich as well as some ice cream and subsequently began having recurrence of vomiting. She had recently been discharged from the hospital. She denies any recent marijuana use. Multiple similar visits with similar symptoms in the past. Prior history of anxiety. She had recently been diagnosed with hypertension and been given prescription for medications. Allergies: Coded Allergies: SULFA (SULFONAMIDE ANTIBIOTICS) (Verified Allergy, Unknown, 02/23/11) Medication History Scheduled Famotidine* (Pepcid 20mg tablet*), 20 MG ORAL DAILY Lorazepam* (Ativan*), 1 MG ORAL THREE TIMES A DAY, (Reported) Ondansetron Odt* (Zofran Odt*), 4 MG BC EVERY 8 HOURS Promethazine Hcl* (Phenergan*), 25 MG ORAL Q6H Scheduled PRN Ondansetron Odt* (Zofran Odt*), 8 MG ORAL Q6H PRN for Nausea & Vomiting Patient History Healthcare decision maker Resuscitation status Advanced Directive on File Review of Systems All Other Systems: negative except mentioned in HPI Physical Exam General Appearance: no apparent distress, alert Lines, tubes and drains: peripheral HEENT: normocephalic, atraumatic, anicteric Neck: non-tender, normal alignment Respiratory/Chest: chest wall non-tender, lungs clear, normal breath sounds Cardiovascular/Chest: normal peripheral pulses, normal rate, regular rhythm Abdomen: soft, decreased bowel sounds, tender Genitourinary/Rectal: normal prostate exam Extremities: normal range of motion, non-tender, normal inspection Skin Exam: normal pigmentation Neurologic: alert, oriented x 3 Musculoskeletal: normal muscle bulk, no effusion Last 24 Hour Vital Signs Date Time Temp Pulse Resp B/P (MAP) Pulse Ox O2 Delivery O2 Flow Rate FiO2 07/04/20 08:41 98.0 90 18 132/78 98 Room Air 07/04/20 08:15 98.2 85 18 125/78 98 Room Air 07/04/20 07:00 98.0 90 18 130/78 98 Room Air 07/04/20 05:00 98.0 85 20 128/88 98 Room Air 07/04/20 03:00 98.2 90 20 131/92 100 Room Air 07/04/20 01:00 98.2 97 20 171/104 100 Room Air 07/04/20 00:42 98.2 99 20 182/123 (142) 100 Room Air Laboratory Tests Test 07/04/20 01:00 White Blood Count 14.2 K/UL (4.8-10.8) H Red Blood Count 4.72 M/UL (4.20-5.40) Hemoglobin 14.1 G/DL (12.0-16.0) Hematocrit 41.5 % (37.0-47.0) Mean Corpuscular Volume 88 FL (80-99) Mean Corpuscular Hemoglobin 29.8 PG (27.0-31.0) Mean Corpuscular Hemoglobin Concent 33.9 G/DL (32.0-36.0) Red Cell Distribution Width 11.9 % (11.6-14.8) Platelet Count 310 K/UL (150-450) Mean Platelet Volume 6.7 FL (6.5-10.1) Neutrophils (%) (Auto) 60.6 % (45.0-75.0) Lymphocytes (%) (Auto) 32.0 % (20.0-45.0) Monocytes (%) (Auto) 5.8 % (1.0-10.0) Eosinophils (%) (Auto) 0.7 % (0.0-3.0) Basophils (%) (Auto) 1.0 % (0.0-2.0) Prothrombin Time 10.9 SEC (9.30-11.50) Prothromb Time International Ratio 1.0 (0.9-1.1) Activated Partial Thromboplast Time 24 SEC (23-33) Urine Color Pale yellow Urine Appearance Clear Urine pH 6 (4.5-8.0) Urine Specific [place] 1.015 (1.005-1.035) Urine Protein Negative (NEGATIVE) Urine Glucose (UA) Negative (NEGATIVE) Urine Ketones 1+ (NEGATIVE) H Urine Blood 2+ (NEGATIVE) H Urine Nitrite Negative (NEGATIVE) Urine Bilirubin Negative (NEGATIVE) Urine Urobilinogen Normal MG/DL (0.0-1.0) Urine Leukocyte Esterase Negative (NEGATIVE) Urine RBC 2-4 /HPF (0 - 2) H Urine WBC 0-2 /HPF (0 - 2) Urine Squamous Epithelial Cells Few /LPF (NONE/OCC) Urine Bacteria None /HPF (NONE) Urine HCG, Qualitative Negative (NEGATIVE) Sodium Level 141 MMOL/L (136-145) Potassium Level 3.3 MMOL/L (3.5-5.1) L Chloride Level 103 MMOL/L (98-107) Carbon Dioxide Level 22 MMOL/L (21-32) Anion Gap 16 mmol/L (5-15) H Blood Urea Nitrogen 13 mg/dL (7-18) Creatinine 1.2 MG/DL (0.55-1.30) Estimat Glomerular Filtration Rate 51.7 mL/min (>60) Glucose Level 134 MG/DL (74-106) H Calcium Level 9.2 MG/DL (8.5-10.1) Total Bilirubin 0.3 MG/DL (0.2-1.0) Aspartate Amino Transf (AST/SGOT) 15 U/L (15-37) Alanine Aminotransferase (ALT/SGPT) 23 U/L (12-78) Alkaline Phosphatase 64 U/L (46-116) Total Protein 7.7 G/DL (6.4-8.2) Albumin 4.3 G/DL (3.4-5.0) Globulin 3.4 g/dL Albumin/Globulin Ratio 1.3 (1.0-2.7) Lipase 298 U/L (73-393) Height (Feet): 5 Height (Inches): 8.00 Weight (Pounds): 155 Medications Current Medications Medications (Trade) Dose Ordered Sig/Shanta Route PRN Reason Start Time Stop Time Status Last Admin Dose Admin Acetaminophen (Tylenol) 650 mg Q4H PRN ORAL Mild Pain (Pain Scale 1-3) 07/04/20 09:00 08/03/20 08:59 Acetaminophen (Tylenol) 650 mg Q4H PRN ORAL Temp >100.5 07/04/20 09:00 08/03/20 08:59 Acetaminophen (Tylenol) 650 mg Q4H PRN RECTAL Mild Pain (Pain Scale 1-3) 07/04/20 09:00 08/03/20 08:59 Acetaminophen (Tylenol) 650 mg Q4H PRN RECTAL Temp >100.5 07/04/20 09:00 08/03/20 08:59 Dextrose (Dextrose 50%) 25 ml Q30M PRN IV Hypoglycemia 07/04/20 09:00 10/02/20 08:59 Dextrose (Dextrose 50%) 50 ml Q30M PRN IV Hypoglycemia 07/04/20 09:00 10/02/20 08:59 Diphenhydramine HCl (Benadryl) 25 mg Q6H PRN ORAL Itching/Pruritis 07/04/20 09:00 08/03/20 08:59 Metoclopramide HCl (Reglan) 10 mg Q6H PRN IVP Nausea & Vomiting 07/04/20 09:00 08/03/20 08:59 Ondansetron HCl (Zofran) 4 mg Q6H PRN IVP Nausea & Vomiting 07/04/20 09:00 08/03/20 08:59 Assessment/Plan Diagnosis [place] I: #Swati due to prerenal azotemia due to vomiting and decreased PO intake #Hypokalemia - due to emesis and decreased PO intake #abd pain, nausea, emesis #cyclical vomiting syndrome - IVF - replete mag and K - pain control - antiemetics - GI eval - monitor bmp, mag and phos - avoid nephrotoxis - daily weights time spent 65 min - greater than 50% on care coordination and counseling Hans Lopez M.D. Jul 04, 2020 09:38
--- NOTE | 2020-07-04 09:45 | General Progress Note ---
Assessment/Plan Problem List: (1) Intractable nausea and vomiting ICD Codes: R11.2 - Nausea with vomiting, unspecified SNOMED: 926031902, 772753214 (2) Cyclic vomiting syndrome ICD Codes: G43.A0 - Cyclical vomiting, not intractable SNOMED: 54095488 (3) Cannabis abuse ICD Codes: F12.10 - Cannabis abuse, uncomplicated SNOMED: 66679763 (4) Dehydration ICD Codes: E86.0 - Dehydration SNOMED: 79482528 (5) Abdominal pain ICD Codes: R10.9 - Unspecified abdominal pain SNOMED: 65907741 (6) Anxiety ICD Codes: F41.9 - Anxiety disorder, unspecified SNOMED: 78853467 Assessment/Plan: drug acreen ivf zofran prn elavil 50 mg repeat labs clears and advance as tolerated Subjective ROS Limited/Unobtainable: Yes Allergies: Coded Allergies: SULFA (SULFONAMIDE ANTIBIOTICS) (Verified Allergy, Unknown, 02/23/11) Objective Last 24 Hour Vital Signs Date Time Temp Pulse Resp B/P (MAP) Pulse Ox O2 Delivery O2 Flow Rate FiO2 07/04/20 08:41 98.0 90 18 132/78 98 Room Air 07/04/20 08:15 98.2 85 18 125/78 98 Room Air 07/04/20 07:00 98.0 90 18 130/78 98 Room Air 07/04/20 05:00 98.0 85 20 128/88 98 Room Air 07/04/20 03:00 98.2 90 20 131/92 100 Room Air 07/04/20 01:00 98.2 97 20 171/104 100 Room Air 07/04/20 00:42 98.2 99 20 182/123 (142) 100 Room Air Laboratory Tests 07/04/20 01:00: White Blood Count 14.2H, Red Blood Count 4.72, Hemoglobin 14.1, Hematocrit 41.5 , Mean Corpuscular Volume 88, Mean Corpuscular Hemoglobin 29.8, Mean Corpuscular Hemoglobin Concent 33.9, Red Cell Distribution Width 11.9, Platelet Count 310, Mean Platelet Volume 6.7, Neutrophils (%) (Auto) 60.6, Lymphocytes (% ) (Auto) 32.0, Monocytes (%) (Auto) 5.8, Eosinophils (%) (Auto) 0.7, Basophils ( %) (Auto) 1.0, Prothrombin Time 10.9, Prothromb Time International Ratio 1.0, Activated Partial Thromboplast Time 24, Urine Color Pale yellow, Urine Appearance Clear, Urine pH 6, Urine Specific [place] 1.015, Urine Protein Negative, Urine Glucose (UA) Negative, Urine Ketones 1+H, Urine Blood 2+H, Urine Nitrite Negative, Urine Bilirubin Negative, Urine Urobilinogen Normal, Urine Leukocyte Esterase Negative, Urine RBC 2-4H, Urine WBC 0-2, Urine Squamous Epithelial Cells Few, Urine Bacteria None, Urine HCG, Qualitative Negative, Sodium Level 141, Potassium Level 3.3L, Chloride Level 103, Carbon Dioxide Level 22, Anion Gap 16H, Blood Urea Nitrogen 13, Creatinine 1.2, Estimat Glomerular Filtration Rate 51.7, Glucose Level 134H, Calcium Level 9.2, Total Bilirubin 0.3, Aspartate Amino Transf (AST/SGOT) 15, Alanine Aminotransferase (ALT/SGPT) 23, Alkaline Phosphatase 64, Total Protein 7.7, Albumin 4.3, Globulin 3.4, Albumin/Globulin Ratio 1.3, Lipase 298 Height (Feet): 5 Height (Inches): 8.00 Weight (Pounds): 155 General Appearance: alert EENT: normal ENT inspection Neck: supple Cardiovascular: normal rate Respiratory/Chest: decreased breath sounds Abdomen: normal bowel sounds, non tender, soft Extremities: non-tender Ferny Wood MD Jul 04, 2020 09:45
[2020-07-04] MEDS: Morphine Sulfate 2mg/ml Inj(IV/IM USE ONLY) IV PRN ×2 (10:19→14:13)
--- NOTE | 2020-07-04 12:48 | History and Physical ---
History of Present Illness General Date patient seen: Jul 04, 2020 Time patient seen: 10:00 Reason for Hospitalization: intract vomiting Present Illness HPI Patient is a 35-year-old female who presents after increased nausea and vomiting. Reports having a generalized abdominal pain for 5 days. Non radiating , no alleviating factors. Normal BMs. Similar symptoms in the past and had previous history of cyclic vomiting syndrome. She reports having eaten sandwich as well as some ice cream and subsequently began having recurrence of vomiting. She had recently been discharged from the hospital. She denies any recent marijuana use. Multiple similar visits with similar symptoms in the past. Prior history of anxiety. She had recently been diagnosed with hypertension and been given prescription for medications. Allergies: Coded Allergies: SULFA (SULFONAMIDE ANTIBIOTICS) (Verified Allergy, Unknown, 02/23/11) COVID-19 Screening Contact w/high risk pt: No Recent Travel to affected area: No Experienced COVID-19 symptoms?: No Medication History Scheduled Famotidine* (Pepcid 20mg tablet*), 20 MG ORAL DAILY Lorazepam* (Ativan*), 1 MG ORAL THREE TIMES A DAY, (Reported) Ondansetron Odt* (Zofran Odt*), 4 MG BC EVERY 8 HOURS Promethazine Hcl* (Phenergan*), 25 MG ORAL Q6H Scheduled PRN Ondansetron Odt* (Zofran Odt*), 8 MG ORAL Q6H PRN for Nausea & Vomiting Patient History History Provided By: Patient Healthcare decision maker Resuscitation status Full Advanced Directive on File Past Medical/Surgical History Past Medical/Surgical History: (1) Cyclic vomiting syndrome Family History Family History: Patient reports no known family medical history. Social History Social History: (1) Cannabis abuse Review of Systems Constitutional: Reports: malaise Eye: Reports: no symptoms ENT: Reports: no symptoms Respiratory: Reports: no symptoms Cardiovascular: Reports: no symptoms Gastrointestinal: Reports: abdominal pain, nausea, vomiting; Denies: constipation, diarrhea, melena, hematemesis Genitourinary: Reports: no symptoms Musculoskeletal: Reports: no symptoms Skin: Reports: no symptoms Psychiatric: Reports: prior hx, anxiety, emotional problems Neurological: Reports: no symptoms Endocrine: Reports: no symptoms Hematologic/Lymphatic: Reports: no symptoms Physical Exam General Appearance: lethargic, mild distress, alert oriented x3 Lines, tubes and drains: peripheral HEENT: normocephalic, atraumatic Neck: non-tender, normal alignment, supple Respiratory/Chest: chest wall non-tender, lungs clear, normal breath sounds, no accessory muscle use Abdomen: soft, no organomegaly, no mass, decreased bowel sounds, tender Skin Exam: normal pigmentation, warm/dry 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, no motor/sensory deficits, alert, oriented x 3, responsive, normal mood/affect Last 24 Hour Vital Signs Date Time Temp Pulse Resp B/P (MAP) Pulse Ox O2 Delivery O2 Flow Rate FiO2 07/04/20 10:49 98.0 07/04/20 10:07 98.0 07/04/20 09:30 97.2 97 22 154/100 (118) 96 07/04/20 08:41 98.0 90 18 132/78 98 Room Air 07/04/20 08:15 98.2 85 18 125/78 98 Room Air 07/04/20 07:00 98.0 90 18 130/78 98 Room Air 07/04/20 05:00 98.0 85 20 128/88 98 Room Air 07/04/20 03:00 98.2 90 20 131/92 100 Room Air 07/04/20 01:00 98.2 97 20 171/104 100 Room Air 07/04/20 00:42 98.2 99 20 182/123 (142) 100 Room Air Laboratory Tests Test 07/04/20 01:00 07/04/20 01:06 White Blood Count 14.2 K/UL (4.8-10.8) H Red Blood Count 4.72 M/UL (4.20-5.40) Hemoglobin 14.1 G/DL (12.0-16.0) Hematocrit 41.5 % (37.0-47.0) Mean Corpuscular Volume 88 FL (80-99) Mean Corpuscular Hemoglobin 29.8 PG (27.0-31.0) Mean Corpuscular Hemoglobin Concent 33.9 G/DL (32.0-36.0) Red Cell Distribution Width 11.9 % (11.6-14.8) Platelet Count 310 K/UL (150-450) Mean Platelet Volume 6.7 FL (6.5-10.1) Neutrophils (%) (Auto) 60.6 % (45.0-75.0) Lymphocytes (%) (Auto) 32.0 % (20.0-45.0) Monocytes (%) (Auto) 5.8 % (1.0-10.0) Eosinophils (%) (Auto) 0.7 % (0.0-3.0) Basophils (%) (Auto) 1.0 % (0.0-2.0) Prothrombin Time 10.9 SEC (9.30-11.50) Prothromb Time International Ratio 1.0 (0.9-1.1) Activated Partial Thromboplast Time 24 SEC (23-33) Urine Color Pale yellow Urine Appearance Clear Urine pH 6 (4.5-8.0) Urine Specific [place] 1.015 (1.005-1.035) Urine Protein Negative (NEGATIVE) Urine Glucose (UA) Negative (NEGATIVE) Urine Ketones 1+ (NEGATIVE) H Urine Blood 2+ (NEGATIVE) H Urine Nitrite Negative (NEGATIVE) Urine Bilirubin Negative (NEGATIVE) Urine Urobilinogen Normal MG/DL (0.0-1.0) Urine Leukocyte Esterase Negative (NEGATIVE) Urine RBC 2-4 /HPF (0 - 2) H Urine WBC 0-2 /HPF (0 - 2) Urine Squamous Epithelial Cells Few /LPF (NONE/OCC) Urine Bacteria None /HPF (NONE) Urine HCG, Qualitative Negative (NEGATIVE) Sodium Level 141 MMOL/L (136-145) Potassium Level 3.3 MMOL/L (3.5-5.1) L Chloride Level 103 MMOL/L (98-107) Carbon Dioxide Level 22 MMOL/L (21-32) Anion Gap 16 mmol/L (5-15) H Blood Urea Nitrogen 13 mg/dL (7-18) Creatinine 1.2 MG/DL (0.55-1.30) Estimat Glomerular Filtration Rate 51.7 mL/min (>60) Glucose Level 134 MG/DL (74-106) H Calcium Level 9.2 MG/DL (8.5-10.1) Total Bilirubin 0.3 MG/DL (0.2-1.0) Aspartate Amino Transf (AST/SGOT) 15 U/L (15-37) Alanine Aminotransferase (ALT/SGPT) 23 U/L (12-78) Alkaline Phosphatase 64 U/L (46-116) Total Protein 7.7 G/DL (6.4-8.2) Albumin 4.3 G/DL (3.4-5.0) Globulin 3.4 g/dL Albumin/Globulin Ratio 1.3 (1.0-2.7) Lipase 298 U/L (73-393) Urine Opiates Screen Pending Urine Barbiturates Screen Pending Phencyclidine (PCP) Screen Pending Urine Amphetamines Screen Pending Urine Benzodiazepines Screen Pending Urine Cocaine Screen Pending Urine Marijuana (THC) Screen Pending Height (Feet): 5 Height (Inches): 8.00 Weight (Pounds): 155 Medications Current Medications Medications (Trade) Dose Ordered Sig/Shanta Route PRN Reason Start Time Stop Time Status Last Admin Dose Admin Acetaminophen (Tylenol) 650 mg Q4H PRN ORAL Mild Pain (Pain Scale 1-3) 07/04/20 09:00 08/03/20 08:59 07/04/20 09:37 Acetaminophen (Tylenol) 650 mg Q4H PRN ORAL Temp >100.5 07/04/20 09:00 08/03/20 08:59 Acetaminophen (Tylenol) 650 mg Q4H PRN RECTAL Mild Pain (Pain Scale 1-3) 07/04/20 09:00 08/03/20 08:59 Acetaminophen (Tylenol) 650 mg Q4H PRN RECTAL Temp >100.5 07/04/20 09:00 08/03/20 08:59 Amitriptyline HCl (Elavil) 50 mg BEDTIME ORAL 07/04/20 21:00 08/03/20 20:59 Dextrose (Dextrose 50%) 25 ml Q30M PRN IV Hypoglycemia 07/04/20 09:00 10/02/20 08:59 Dextrose (Dextrose 50%) 50 ml Q30M PRN IV Hypoglycemia 07/04/20 09:00 10/02/20 08:59 Diphenhydramine HCl (Benadryl) 25 mg Q6H PRN ORAL Itching/Pruritis 07/04/20 09:00 08/03/20 08:59 Lorazepam (Ativan) 1 mg Q6H PRN ORAL For Anxiety 07/04/20 10:00 07/11/20 09:59 Metoclopramide HCl (Reglan) 10 mg Q6H PRN IVP Nausea & Vomiting 07/04/20 09:00 08/03/20 08:59 Morphine Sulfate (Morphine Sulfate) 1 mg Q4H PRN IV Severe Pain (Pain Scale 7-10) 07/04/20 10:00 07/11/20 09:59 07/04/20 10:19 Ondansetron HCl (Zofran) 8 mg Q8H PRN IVP Nausea & Vomiting 1st 07/04/20 10:00 08/03/20 09:59 Assessment/Plan Problem List: (1) Cyclic vomiting syndrome ICD Codes: G43.A0 - Cyclical vomiting, not intractable SNOMED: 81316650 (2) Cannabis abuse ICD Codes: F12.10 - Cannabis abuse, uncomplicated SNOMED: 77289840 (3) Dehydration ICD Codes: E86.0 - Dehydration SNOMED: 33257434 (4) Intractable nausea and vomiting ICD Codes: R11.2 - Nausea with vomiting, unspecified SNOMED: 091066120, 548118145 (5) Anxiety ICD Codes: F41.9 - Anxiety disorder, unspecified SNOMED: 36621382 (6) Abdominal pain ICD Codes: R10.9 - Unspecified abdominal pain SNOMED: 06492199 Status: stable, progressing Assessment/Plan: 35 year old female with intractable nausea and vomiting for 18 years acutely worse #Cyclic vomiting syndrome #Abdominal pain #Dehydration/ Low PO intake -Zofran 8mg dose -Continue home Ativan -Clear liquid diet -Consult to GI -Consult to Nephrology I spent 75 min with this patient. with 30 min face to face. I discussed with consultants and RNs. Reviewed old chats for 20 min. Literature review of cyclical vomiting. Junior Fisher M.D. Jul 04, 2020 12:48
[2020-07-04] MEDS: Metoclopramide 10mg/2ml Inj IVP PRN ×2 (14:14→20:18)
[2020-07-04] MEDS: NS w/KCl 20mEq 1000ml 1,000 ML IV SCH (18:53)
[2020-07-04] MEDS: HydrALAZINE 25mg tab ORAL SCH (18:53)
[2020-07-04] MEDS: Morphine Sulfate 4mg/ml Inj (IV USE ONLY) IV PRN (18:58)
[2020-07-05] VITALS (7 sets, daily range): BP systolic 138–197; BP diastolic 82–105
[2020-07-05] MEDS: HydrALAZINE 25mg tab ORAL SCH ×5 (00:46→23:40)
--- NOTE | 2020-07-05 01:30 | Progress Note ---
DATE: 07/04/2020 SUBJECTIVE: Patient recently discharged from the hospital. Today with anxiety and cyclic nausea and vomiting. Patient is anxious, pacing in the hallway. She was recently started on Lexapro and Remeron. MENTAL STATUS EXAMINATION: Alert, oriented times self, place, situation. Mood is anxious. Affect is constricted, congruent with mood. Thought process is concrete. Thought content, no suicidal or homicidal ideation. ASSESSMENT: 1. Cannabis abuse. 2. Anxiety disorder. PLAN: 1. Continue Lexapro. 2. Remeron. 3. Provide the patient with reality orientation and supportive therapy. Jonathan Elise M.D. DR: MARY JOB#: [id number] CC:
[2020-07-05] MEDS: Metoclopramide 10mg/2ml Inj IVP PRN ×2 (02:41→09:51)
[2020-07-05] MEDS: Morphine Sulfate 4mg/ml Inj (IV USE ONLY) IV PRN ×3 (02:41→10:58)
[2020-07-05 06:44] LABS: BASOPHILS % (AUTO) 0.7 % (0.0-2.0); EOSINOPHILS % (AUTO) 0.2 % (0.0-3.0); HEMOGLOBIN 13.5 G/DL (12.0-16.0); LYMPHOCYTES % (AUTO) 24.6 % (20.0-45.0); MEAN CORPUSCULAR VOLUME 88 FL (80-99); MONOCYTES % (AUTO) 5.4 % (1.0-10.0); NEUTROPHILS % (AUTO) 69.1 % (45.0-75.0); PLATELET COUNT 252 K/UL (150-450); RED BLOOD COUNT 4.55 M/UL (4.20-5.40); RED CELL DISTRIBUTION WIDTH 11.9 % (11.6-14.8); WHITE BLOOD COUNT 11.3 K/UL (4.8-10.8)
[2020-07-05 07:06] LABS: ALANINE AMINOTRANSFERASE 21 U/L (12-78); ALBUMIN 3.9 G/DL (3.4-5.0); ALBUMIN/GLOBULIN RATIO 1.2 (1.0-2.7); ALKALINE PHOSPHATASE 57 U/L (46-116); ANION GAP 10 mmol/L (5-15); ASPARTATE AMINO TRANSFERASE 12 U/L (15-37); BILIRUBIN,TOTAL 0.5 MG/DL (0.2-1.0); BLOOD UREA NITROGEN 8 mg/dL (7-18); CARBON DIOXIDE 25 MMOL/L (21-32); CHLORIDE 103 MMOL/L (98-107); POTASSIUM 3.5 MMOL/L (3.5-5.1); SODIUM 138 MMOL/L (136-145)
[2020-07-05 08:16] LABS: ANION GAP 14 mmol/L (5-15); BLOOD UREA NITROGEN 8 mg/dL (7-18); CARBON DIOXIDE 22 MMOL/L (21-32); CHLORIDE 102 MMOL/L (98-107); CREATININE 0.9 MG/DL (0.55-1.30); PHOSPHORUS 3.3 MG/DL (2.5-4.9); POTASSIUM 3.5 MMOL/L (3.5-5.1); SODIUM 138 MMOL/L (136-145)
[2020-07-05] MEDS: NS w/KCl 20mEq 1000ml 1,000 ML IV SCH ×2 (09:51→20:16)
--- NOTE | 2020-07-05 10:22 | General Progress Note ---
Assessment/Plan Problem List: (1) Cyclic vomiting syndrome ICD Codes: G43.A0 - Cyclical vomiting, not intractable SNOMED: 19670364 (2) Cannabis abuse ICD Codes: F12.10 - Cannabis abuse, uncomplicated SNOMED: 40757308 (3) Dehydration ICD Codes: E86.0 - Dehydration SNOMED: 20957009 (4) Intractable nausea and vomiting ICD Codes: R11.2 - Nausea with vomiting, unspecified SNOMED: 075109766, 412115913 (5) Anxiety ICD Codes: F41.9 - Anxiety disorder, unspecified SNOMED: 07664917 (6) Abdominal pain ICD Codes: R10.9 - Unspecified abdominal pain SNOMED: 48003815 Status: stable, progressing Assessment/Plan: 35 year old female with intractable nausea and vomiting for 18 years acutely worse. #Cyclic vomiting syndrome #Abdominal pain #Dehydration/ Low PO intake -Zofran 8mg dose -Reglan PRN -Continue home Ativan -Continue Elavil -Clear liquid diet -Consult to GI -Consult to psych -Consult to Nephrology I spent 38 min with this patient. with 50% min face to face. I discussed with consultants and RNs. Literature review of cyclical vomiting. Subjective Date patient seen: Jul 05, 2020 Time patient seen: 07:30 ROS Limited/Unobtainable: No Constitutional: Reports: malaise; Denies: chills, fever HEENT: Reports: no symptoms Cardiovascular: Denies: chest pain Respiratory: Reports: no symptoms; Denies: cough, orthopnea Gastrointestinal/Abdominal: Reports: nausea, poor appetite, poor fluid intake, vomiting; Denies: black stools, tarry stools, blood in stool, constipated, diarrhea Genitourinary: Reports: no symptoms Neurologic/Psychiatric: Reports: anxiety, emotional problems; Denies: no symptoms Endocrine: Reports: no symptoms Hematologic/Lymphatic: Reports: no symptoms Allergies: Coded Allergies: SULFA (SULFONAMIDE ANTIBIOTICS) (Verified Allergy, Unknown, 02/23/11) Subjective Patient still fells nauseated and threw twice in the AM. She will trya and eat today. Objective Last 24 Hour Vital Signs Date Time Temp Pulse Resp B/P (MAP) Pulse Ox O2 Delivery O2 Flow Rate FiO2 07/05/20 08:40 99.0 73 20 138/98 (111) 99 07/05/20 07:02 90 20 197/105 (135) 98 07/05/20 06:25 156/105 07/05/20 04:00 98.0 75 20 156/105 (122) 100 07/05/20 00:46 156/93 07/05/20 00:00 98.1 88 19 156/93 (114) 98 07/04/20 21:00 Room Air 07/04/20 20:00 98.2 20 150/82 (104) 100 07/04/20 18:53 159/100 07/04/20 16:00 98.2 159/100 (119) 07/04/20 14:43 97.7 07/04/20 14:30 97.7 115 22 194/126 (148) 99 07/04/20 12:00 Room Air Intake and Output 07/04/20 07/05/20 19:00 07:00 Intake Total 600 ml 1065 ml Output Total 1500 ml 500 ml Balance -900 ml 565 ml Intake Oral 600 ml 240 ml IV Total 825 ml Output Emesis 1500 ml 500 ml # Voids 2 1 Laboratory Tests 07/05/20 05:20: White Blood Count 11.3H, Red Blood Count 4.55, Hemoglobin 13.5, Hematocrit 40.0 , Mean Corpuscular Volume 88, Mean Corpuscular Hemoglobin 29.7, Mean Corpuscular Hemoglobin Concent 33.8, Red Cell Distribution Width 11.9, Platelet Count 252, Mean Platelet Volume 6.4L, Neutrophils (%) (Auto) 69.1, Lymphocytes ( %) (Auto) 24.6, Monocytes (%) (Auto) 5.4, Eosinophils (%) (Auto) 0.2, Basophils (%) (Auto) 0.7, Sodium Level 138, Potassium Level 3.5, Chloride Level 102, Carbon Dioxide Level 22, Anion Gap 14, Blood Urea Nitrogen 8, Creatinine 0.9, Estimat Glomerular Filtration Rate > 60, Glucose Level 101, Hemoglobin A1c 5.1, Calcium Level 9.0, Phosphorus Level 3.3, Magnesium Level 2.1, Total Bilirubin 0.5, Aspartate Amino Transf (AST/SGOT) 12L, Alanine Aminotransferase (ALT/SGPT) 21, Alkaline Phosphatase 57, Total Protein 7.1, Albumin 3.9, Globulin 3.2, Albumin/Globulin Ratio 1.2, Lipase 391, Thyroid Stimulating Hormone (TSH) 0.965 Height (Feet): 5 Height (Inches): 8.00 Weight (Pounds): 155 General Appearance: no apparent distress, alert, lethargic EENT: PERRL/EOMI, normal ENT inspection Neck: non-tender, normal alignment, supple Cardiovascular: normal peripheral pulses, normal rate, regular rhythm, no gallop/murmur, no JVD Respiratory/Chest: chest wall non-tender, lungs clear, normal breath sounds, no respiratory distress, no accessory muscle use Abdomen: soft, no organomegaly, no mass, hypoactive bowel sounds, tender Extremities: normal range of motion, non-tender, normal inspection Edema: no edema noted Arm (L), no edema noted Arm (R), no edema noted Leg (L), no edema noted Leg (R), no edema noted Pedal (L), no edema noted Pedal (R), no edema noted 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 Jul 05, 2020 10:22
--- NOTE | 2020-07-05 10:32 | General Progress Note ---
Assessment/Plan Problem List: (1) Intractable nausea and vomiting ICD Codes: R11.2 - Nausea with vomiting, unspecified SNOMED: 871435056, 520998603 (2) Cyclic vomiting syndrome ICD Codes: G43.A0 - Cyclical vomiting, not intractable SNOMED: 93990837 (3) Cannabis abuse ICD Codes: F12.10 - Cannabis abuse, uncomplicated SNOMED: 19502713 (4) Dehydration ICD Codes: E86.0 - Dehydration SNOMED: 53910537 (5) Abdominal pain ICD Codes: R10.9 - Unspecified abdominal pain SNOMED: 75696662 (6) Anxiety ICD Codes: F41.9 - Anxiety disorder, unspecified SNOMED: 69787709 Status: stable, progressing Assessment/Plan: drug screen>>> positive for THC again ivf zofran prn elavil 50 mg repeat labs clears and advance as tolerated needs psych eval Subjective ROS Limited/Unobtainable: Yes Allergies: Coded Allergies: SULFA (SULFONAMIDE ANTIBIOTICS) (Verified Allergy, Unknown, 02/23/11) Objective Last 24 Hour Vital Signs Date Time Temp Pulse Resp B/P (MAP) Pulse Ox O2 Delivery O2 Flow Rate FiO2 07/05/20 08:40 99.0 73 20 138/98 (111) 99 07/05/20 07:02 90 20 197/105 (135) 98 07/05/20 06:25 156/105 07/05/20 04:00 98.0 75 20 156/105 (122) 100 07/05/20 00:46 156/93 07/05/20 00:00 98.1 88 19 156/93 (114) 98 07/04/20 21:00 Room Air 07/04/20 20:00 98.2 20 150/82 (104) 100 07/04/20 18:53 159/100 07/04/20 16:00 98.2 159/100 (119) 07/04/20 14:43 97.7 07/04/20 14:30 97.7 115 22 194/126 (148) 99 07/04/20 12:00 Room Air Intake and Output 07/04/20 07/05/20 19:00 07:00 Intake Total 600 ml 1065 ml Output Total 1500 ml 500 ml Balance -900 ml 565 ml Intake Oral 600 ml 240 ml IV Total 825 ml Output Emesis 1500 ml 500 ml # Voids 2 1 Laboratory Tests 07/05/20 05:20: White Blood Count 11.3H, Red Blood Count 4.55, Hemoglobin 13.5, Hematocrit 40.0 , Mean Corpuscular Volume 88, Mean Corpuscular Hemoglobin 29.7, Mean Corpuscular Hemoglobin Concent 33.8, Red Cell Distribution Width 11.9, Platelet Count 252, Mean Platelet Volume 6.4L, Neutrophils (%) (Auto) 69.1, Lymphocytes ( %) (Auto) 24.6, Monocytes (%) (Auto) 5.4, Eosinophils (%) (Auto) 0.2, Basophils (%) (Auto) 0.7, Sodium Level 138, Potassium Level 3.5, Chloride Level 102, Carbon Dioxide Level 22, Anion Gap 14, Blood Urea Nitrogen 8, Creatinine 0.9, Estimat Glomerular Filtration Rate > 60, Glucose Level 101, Hemoglobin A1c 5.1, Calcium Level 9.0, Phosphorus Level 3.3, Magnesium Level 2.1, Total Bilirubin 0.5, Aspartate Amino Transf (AST/SGOT) 12L, Alanine Aminotransferase (ALT/SGPT) 21, Alkaline Phosphatase 57, Total Protein 7.1, Albumin 3.9, Globulin 3.2, Albumin/Globulin Ratio 1.2, Lipase 391, Thyroid Stimulating Hormone (TSH) 0.965 Height (Feet): 5 Height (Inches): 8.00 Weight (Pounds): 155 General Appearance: alert EENT: normal ENT inspection Neck: supple Cardiovascular: normal rate Respiratory/Chest: decreased breath sounds Abdomen: normal bowel sounds, non tender, soft Extremities: non-tender Ferny Wood MD Jul 05, 2020 10:32
--- NOTE | 2020-07-05 13:25 | Nephrology Progress Note ---
Assessment/Plan Plan #Mitali due to prerenal azotemia due to vomiting and decreased PO intake #Hypokalemia - due to emesis and decreased PO intake #abd pain, nausea, emesis #cyclical vomiting syndrome - IVF - replete mag and K prn - pain control - antiemetics - GI eval - monitor bmp, mag and phos - avoid nephrotoxis - daily weights time spent 65 min - greater than 50% on care coordination and counseling Subjective ROS Limited/Unobtainable: No Constitutional: Reports: malaise, weakness HEENT: Denies: no symptoms, eye pain, blurred vision, tearing, double vision, ear pain, ear discharge, nose pain, nose congestion, throat pain, throat swelling, mouth pain, mouth swelling, other Genitourinary: Denies: no symptoms, burning, discharge, frequency, flank pain, hematuria, incontinence, pain, urgency, other Neurologic/Psychiatric: Denies: no symptoms, anxiety, depressed, emotional problems, headache, numbness, paresthesia, pre-existing deficit, seizure, tingling, tremors, weakness, other Subjective abd pain better today complains of nausea tolerating CLD Objective Objective Last 24 Hour Vital Signs Date Time Temp Pulse Resp B/P (MAP) Pulse Ox O2 Delivery O2 Flow Rate FiO2 07/05/20 12:07 150/98 07/05/20 12:00 97.9 83 20 150/98 (115) 99 07/05/20 09:00 Room Air 07/05/20 08:40 99.0 73 20 138/98 (111) 99 07/05/20 07:02 90 20 197/105 (135) 98 07/05/20 06:25 156/105 07/05/20 04:00 98.0 75 20 156/105 (122) 100 07/05/20 00:46 156/93 07/05/20 00:00 98.1 88 19 156/93 (114) 98 07/04/20 21:00 Room Air 07/04/20 20:00 98.2 20 150/82 (104) 100 07/04/20 18:53 159/100 07/04/20 16:00 98.2 159/100 (119) 07/04/20 14:43 97.7 07/04/20 14:30 97.7 115 22 194/126 (148) 99 Intake and Output 07/04/20 07/05/20 19:00 07:00 Intake Total 600 ml 1065 ml Output Total 1500 ml 500 ml Balance -900 ml 565 ml Intake Oral 600 ml 240 ml IV Total 825 ml Output Emesis 1500 ml 500 ml # Voids 2 1 Laboratory Tests 07/05/20 05:20: White Blood Count 11.3H, Red Blood Count 4.55, Hemoglobin 13.5, Hematocrit 40.0 , Mean Corpuscular Volume 88, Mean Corpuscular Hemoglobin 29.7, Mean Corpuscular Hemoglobin Concent 33.8, Red Cell Distribution Width 11.9, Platelet Count 252, Mean Platelet Volume 6.4L, Neutrophils (%) (Auto) 69.1, Lymphocytes ( %) (Auto) 24.6, Monocytes (%) (Auto) 5.4, Eosinophils (%) (Auto) 0.2, Basophils (%) (Auto) 0.7, Sodium Level 138, Potassium Level 3.5, Chloride Level 102, Carbon Dioxide Level 22, Anion Gap 14, Blood Urea Nitrogen 8, Creatinine 0.9, Estimat Glomerular Filtration Rate > 60, Glucose Level 101, Hemoglobin A1c 5.1, Calcium Level 9.0, Phosphorus Level 3.3, Magnesium Level 2.1, Total Bilirubin 0.5, Aspartate Amino Transf (AST/SGOT) 12L, Alanine Aminotransferase (ALT/SGPT) 21, Alkaline Phosphatase 57, Total Protein 7.1, Albumin 3.9, Globulin 3.2, Albumin/Globulin Ratio 1.2, Lipase 391, Thyroid Stimulating Hormone (TSH) 0.965 Height (Feet): 5 Height (Inches): 8.00 Weight (Pounds): 155 General Appearance: no apparent distress EENT: PERRL/EOMI, normal ENT inspection Neck: non-tender, normal alignment Cardiovascular: normal peripheral pulses, normal rate, regular rhythm Respiratory/Chest: chest wall non-tender, lungs clear, normal breath sounds Abdomen: normal bowel sounds, non tender, soft Neurologic: alert, oriented x 3 Hans Lopez M.D. Jul 05, 2020 13:25
[2020-07-05] MEDS: LORazepam 1mg tab ORAL PRN ×2 (15:21→23:39)
--- NOTE | 2020-07-05 19:37 | Psych Consult Progress Note ---
Psychiatry Progress Note Psychiatry Progress Note Subjective the pt slept well still anxious Medications Current Medications Medications (Trade) Dose Ordered Sig/Shanta Route PRN Reason Start Time Stop Time Status Last Admin Dose Admin Acetaminophen (Tylenol) 650 mg Q4H PRN ORAL Mild Pain (Pain Scale 1-3) 07/04/20 09:00 08/03/20 08:59 07/04/20 09:37 Acetaminophen (Tylenol) 650 mg Q4H PRN ORAL Temp >100.5 07/04/20 09:00 08/03/20 08:59 Acetaminophen (Tylenol) 650 mg Q4H PRN RECTAL Mild Pain (Pain Scale 1-3) 07/04/20 09:00 08/03/20 08:59 Acetaminophen (Tylenol) 650 mg Q4H PRN RECTAL Temp >100.5 07/04/20 09:00 08/03/20 08:59 Amitriptyline HCl (Elavil) 50 mg BEDTIME ORAL 07/04/20 21:00 08/03/20 20:59 07/04/20 20:18 Dextrose (Dextrose 50%) 25 ml Q30M PRN IV Hypoglycemia 07/04/20 09:00 10/02/20 08:59 Dextrose (Dextrose 50%) 50 ml Q30M PRN IV Hypoglycemia 07/04/20 09:00 10/02/20 08:59 Diphenhydramine HCl (Benadryl) 25 mg Q6H PRN ORAL Itching/Pruritis 07/04/20 09:00 08/03/20 08:59 Hydralazine HCl (Apresoline) 25 mg Q6HR ORAL 07/04/20 18:00 10/02/20 17:59 07/05/20 17:13 Lorazepam (Ativan) 1 mg Q6H PRN ORAL For Anxiety 07/04/20 10:00 07/11/20 09:59 07/05/20 15:21 Metoclopramide HCl (Reglan) 10 mg Q6H PRN IVP Nausea & Vomiting 07/04/20 09:00 08/03/20 08:59 07/05/20 09:51 Mirtazapine (Remeron) 15 mg BEDTIME ORAL 07/05/20 21:00 10/03/20 20:59 Morphine Sulfate (Morphine Sulfate) 4 mg Q4H PRN IV Severe Pain (Pain Scale 7-10) 07/04/20 15:08 07/11/20 15:07 07/05/20 10:58 Ondansetron HCl (Zofran) 8 mg Q12H PRN IVP Nausea & Vomiting 1st 07/04/20 15:15 08/03/20 15:14 07/05/20 06:25 Potassium Chloride/Sodium Chloride 1,000 ml @ 75 mls/hr [id number] IV 07/04/20 19:00 08/03/20 18:59 07/05/20 09:51 Neurological/Psychiatric: Denies: no symptoms, anxiety, depressed, emotional problems, headache, numbness, paresthesia, pre-existing deficit, seizure, tingling, tremors, weakness, other Allergies: Coded Allergies: SULFA (SULFONAMIDE ANTIBIOTICS) (Verified Allergy, Unknown, 02/23/11) Objective Data Height (Feet): 5 Height (Inches): 8.00 Weight (Pounds): 155 General Appearance: alert Additional Comments: Alert, oriented times self, place, situation. Mood is anxious. Affect is constricted, congruent with mood. Thought process is concrete. Thought content, no suicidal or homicidal ideation. ASSESSMENT: 1. Cannabis abuse. 2. Anxiety disorder. PLAN: 1. Continue Lexapro. 2. Remeron. 3. Provide the patient with reality orientation and supportive therapy. Assessment/Plan Status: stable, progressing Jonathan Elise MD Jul 05, 2020 19:37
--- NOTE | 2020-07-05 22:55 | Neurology Progress Note ---
Interim History Interim History ROS Limited/Unobtainable: No Interim History 35-year-old female who presents after increased nausea and vomiting. Reports having a generalized abdominal pain for 5 days. Non radiating, no alleviating factors. Normal BMs. Similar symptoms in the past and had previous history of cyclic vomiting syndrome. She reports having eaten sandwich as well as some ice cream and subsequently began having recurrence of vomiting. She had recently been discharged from the hospital. She denies any recent marijuana use. Multiple similar visits with similar symptoms in the past. Prior history of anxiety. Objective Physical Exam Last Vital Signs Date Time Temp Pulse Resp B/P (MAP) Pulse Ox O2 Delivery O2 Flow Rate FiO2 07/05/20 17:13 154/83 07/05/20 16:00 97.4 100 20 97 07/05/20 09:00 Room Air Laboratory Tests Test 07/05/20 05:20 White Blood Count 11.3 K/UL (4.8-10.8) H Red Blood Count 4.55 M/UL (4.20-5.40) Hemoglobin 13.5 G/DL (12.0-16.0) Hematocrit 40.0 % (37.0-47.0) Mean Corpuscular Volume 88 FL (80-99) Mean Corpuscular Hemoglobin 29.7 PG (27.0-31.0) Mean Corpuscular Hemoglobin Concent 33.8 G/DL (32.0-36.0) Red Cell Distribution Width 11.9 % (11.6-14.8) Platelet Count 252 K/UL (150-450) Mean Platelet Volume 6.4 FL (6.5-10.1) L Neutrophils (%) (Auto) 69.1 % (45.0-75.0) Lymphocytes (%) (Auto) 24.6 % (20.0-45.0) Monocytes (%) (Auto) 5.4 % (1.0-10.0) Eosinophils (%) (Auto) 0.2 % (0.0-3.0) Basophils (%) (Auto) 0.7 % (0.0-2.0) Sodium Level 138 MMOL/L (136-145) Potassium Level 3.5 MMOL/L (3.5-5.1) Chloride Level 102 MMOL/L (98-107) Carbon Dioxide Level 22 MMOL/L (21-32) Anion Gap 14 mmol/L (5-15) Blood Urea Nitrogen 8 mg/dL (7-18) Creatinine 0.9 MG/DL (0.55-1.30) Estimat Glomerular Filtration Rate > 60 mL/min (>60) Glucose Level 101 MG/DL (74-106) Hemoglobin A1c 5.1 % (4.3-6.0) Calcium Level 9.0 MG/DL (8.5-10.1) Phosphorus Level 3.3 MG/DL (2.5-4.9) Magnesium Level 2.1 MG/DL (1.8-2.4) Total Bilirubin 0.5 MG/DL (0.2-1.0) Aspartate Amino Transf (AST/SGOT) 12 U/L (15-37) L Alanine Aminotransferase (ALT/SGPT) 21 U/L (12-78) Alkaline Phosphatase 57 U/L (46-116) Total Protein 7.1 G/DL (6.4-8.2) Albumin 3.9 G/DL (3.4-5.0) Globulin 3.2 g/dL Albumin/Globulin Ratio 1.2 (1.0-2.7) Lipase 391 U/L (73-393) Thyroid Stimulating Hormone (TSH) 0.965 uiU/mL (0.358-3.740) Neurologic Exam Mental Status: awake, oriented x4 Speech: normal speech Language: normal language Cranial Nerve II: visual hernández Cranial Nerves III, IV, : PERRLA, EOMI Gait: stable Objective normal neuro exam Impression/Recommendations Problems: (1) Ovarian cyst (2) Hyponatremia (3) Elevated lipase (4) Nausea and vomiting in adult patient (5) Intractable cyclical vomiting (6) Hypercalcemia (7) Leukocytosis (8) Hypokalemia (9) Accelerated hypertension (10) Hypokalemia (11) Vomiting (12) vomiting able to tolerate PO fluids (13) Abdominal pain (14) Intractable cyclical vomiting (15) Anxiety (16) Dehydration (17) Cannabis abuse (18) Cyclic vomiting syndrome (19) Intractable nausea and vomiting Status: stable, progressing Diagnostic Impression unlikely migraine related Severe anxiety Nausea Cont IVFs PT OT Ashish Michaud MD Jul 05, 2020 22:55
[2020-07-05] MEDS ORDERED: NS w/KCl 20mEq 1000ml 1,000 ML IV SCH (23:00)
[2020-07-06] VITALS: BP 137/81
[2020-07-06 04:00] VITALS: BP 134/87
[2020-07-06] MEDS: Morphine Sulfate 4mg/ml Inj (IV USE ONLY) IV PRN (04:21)
[2020-07-06] MEDS: HydrALAZINE 25mg tab ORAL SCH (05:25)
[2020-07-06 06:34] LABS: EOSINOPHILS % (AUTO) 0.8 % (0.0-3.0); LYMPHOCYTES % (AUTO) 49.1 % (20.0-45.0); MEAN CORPUSCULAR VOLUME 88 FL (80-99); MONOCYTES % (AUTO) 6.6 % (1.0-10.0); NEUTROPHILS % (AUTO) 42.4 % (45.0-75.0); PLATELET COUNT 246 K/UL (150-450); RED BLOOD COUNT 4.75 M/UL (4.20-5.40); RED CELL DISTRIBUTION WIDTH 11.9 % (11.6-14.8); WHITE BLOOD COUNT 7.6 K/UL (4.8-10.8)
[2020-07-06 06:49] LABS: ANION GAP 10 mmol/L (5-15); BLOOD UREA NITROGEN 7 mg/dL (7-18); CALCIUM 8.7 MG/DL (8.5-10.1); CARBON DIOXIDE 24 MMOL/L (21-32); CHLORIDE 105 MMOL/L (98-107); POTASSIUM 3.4 MMOL/L (3.5-5.1); SODIUM 139 MMOL/L (136-145)
[2020-07-06 08:00] VITALS: BP 123/74
--- NOTE | 2020-07-06 08:10 | General Progress Note ---
Assessment/Plan Problem List: (1) Intractable nausea and vomiting ICD Codes: R11.2 - Nausea with vomiting, unspecified SNOMED: 652850301, 126931177 (2) Cyclic vomiting syndrome ICD Codes: G43.A0 - Cyclical vomiting, not intractable SNOMED: 85480749 (3) Cannabis abuse ICD Codes: F12.10 - Cannabis abuse, uncomplicated SNOMED: 53802998 (4) Dehydration ICD Codes: E86.0 - Dehydration SNOMED: 23216167 (5) Abdominal pain ICD Codes: R10.9 - Unspecified abdominal pain SNOMED: 97004830 (6) Anxiety ICD Codes: F41.9 - Anxiety disorder, unspecified SNOMED: 15123060 Status: stable, progressing Assessment/Plan: drug screen>>> positive for THC again ivf zofran prn elavil 50 mg repeat labs advance diet as tolerated neuro and psych eval appreciated Subjective ROS Limited/Unobtainable: Yes Allergies: Coded Allergies: SULFA (SULFONAMIDE ANTIBIOTICS) (Verified Allergy, Unknown, 02/23/11) Objective Last 24 Hour Vital Signs Date Time Temp Pulse Resp B/P (MAP) Pulse Ox O2 Delivery O2 Flow Rate FiO2 07/06/20 05:25 134/87 07/06/20 04:00 97.9 78 20 134/87 (103) 98 07/06/20 00:00 98.1 69 18 137/81 (99) 96 07/05/20 23:40 137/81 07/05/20 21:00 Room Air 07/05/20 20:00 97.5 79 20 143/82 (102) 98 07/05/20 17:13 154/83 07/05/20 16:00 97.4 100 20 154/83 (106) 97 07/05/20 12:07 150/98 07/05/20 12:00 97.9 83 20 150/98 (115) 99 07/05/20 09:00 Room Air 07/05/20 08:40 99.0 73 20 138/98 (111) 99 Intake and Output 07/05/20 07/06/20 19:00 07:00 Intake Total 1350 ml 1985 ml Balance 1350 ml 1985 ml Intake Oral 600 ml 1000 ml IV Total 750 ml 625 ml Other 360 ml # Voids 4 4 Laboratory Tests 07/06/20 05:50: White Blood Count 7.6, Red Blood Count 4.75, Hemoglobin 14.0, Hematocrit 42.0, Mean Corpuscular Volume 88, Mean Corpuscular Hemoglobin 29.5, Mean Corpuscular Hemoglobin Concent 33.4, Red Cell Distribution Width 11.9, Platelet Count 246, Mean Platelet Volume 6.8, Neutrophils (%) (Auto) 42.4L, Lymphocytes (%) (Auto) 49.1H, Monocytes (%) (Auto) 6.6, Eosinophils (%) (Auto) 0.8, Basophils (%) (Auto ) 1.0, Sodium Level 139, Potassium Level 3.4L, Chloride Level 105, Carbon Dioxide Level 24, Anion Gap 10, Blood Urea Nitrogen 7, Creatinine 1.0, Estimat Glomerular Filtration Rate > 60, Glucose Level 93, Calcium Level 8.7 Height (Feet): 5 Height (Inches): 8.00 Weight (Pounds): 154 General Appearance: alert EENT: normal ENT inspection Neck: supple Cardiovascular: normal rate Respiratory/Chest: decreased breath sounds Abdomen: normal bowel sounds, non tender, soft Extremities: non-tender Ferny Wood MD Jul 06, 2020 08:10
[2020-07-06] MEDS ORDERED: AMITRIPTYLINE25 MG ORAL (09:03)
--- NOTE | 2020-07-06 11:28 | Discharge Summary ---
Discharge Summary Hospital Course Date of Admission Jul 04, 2020 at 07:54 Date of Discharge 07/06/2020 Admitting Diagnosis intractable vomiting, cyclic vomiting syndrom HPI Patient is a 35-year-old female who presents after increased nausea and vomiting. Reports having a generalized abdominal pain for 5 days. Non radiating , no alleviating factors. Normal BMs. Similar symptoms in the past and had previous history of cyclic vomiting syndrome. She reports having eaten sandwich as well as some ice cream and subsequently began having recurrence of vomiting. She had recently been discharged from the hospital. She denies any recent marijuana use. Multiple similar visits with similar symptoms in the past. Prior history of anxiety. She had recently been diagnosed with hypertension and been given prescription for medications. Hospital Course 35 year old female with intractable nausea and vomiting for 18 years acutely worse. Patient was given Ativan and zofran which controlled her vomiting. She will quit smoking marijuana. She will follow up with Dr. Wood this week. She is tolerating PO before discharge. #Cyclic vomiting syndrome #Abdominal pain #Dehydration/ Low PO intake -Zofran 8mg dose -Reglan PRN -Continue home Ativan -Continue Elavil -Clear liquid diet -Consult to GI -Consult to psych -Consult to Nephrology I spent 38 min with this patients discharge. with 50% min face to face. I discussed with consultants and RNs. Literature review of cyclical vomiting. Discharge Condition Upon Discharge: stable Discharge Vital Signs Last Vital Signs Date Time Temp Pulse Resp B/P (MAP) Pulse Ox O2 Delivery O2 Flow Rate FiO2 07/06/20 09:00 Room Air 07/06/20 08:00 98.1 69 18 123/74 (90) 100 Discharge Disposition Patient was discharged to Discharge Diagnoses: (1) Cyclic vomiting syndrome (2) Cannabis abuse (3) Dehydration (4) Intractable nausea and vomiting Junior Fisher M.D. Jul 06, 2020 11:28
--- NOTE | 2020-07-06 12:30 | Neurology Progress Note ---
Interim History Interim History ROS Limited/Unobtainable: Yes Interim History feels better, plan for home Objective Physical Exam Last Vital Signs Date Time Temp Pulse Resp B/P (MAP) Pulse Ox O2 Delivery O2 Flow Rate FiO2 07/06/20 09:00 Room Air 07/06/20 08:00 98.1 69 18 123/74 (90) 100 Laboratory Tests Test 07/06/20 05:50 White Blood Count 7.6 K/UL (4.8-10.8) Red Blood Count 4.75 M/UL (4.20-5.40) Hemoglobin 14.0 G/DL (12.0-16.0) Hematocrit 42.0 % (37.0-47.0) Mean Corpuscular Volume 88 FL (80-99) Mean Corpuscular Hemoglobin 29.5 PG (27.0-31.0) Mean Corpuscular Hemoglobin Concent 33.4 G/DL (32.0-36.0) Red Cell Distribution Width 11.9 % (11.6-14.8) Platelet Count 246 K/UL (150-450) Mean Platelet Volume 6.8 FL (6.5-10.1) Neutrophils (%) (Auto) 42.4 % (45.0-75.0) L Lymphocytes (%) (Auto) 49.1 % (20.0-45.0) H Monocytes (%) (Auto) 6.6 % (1.0-10.0) Eosinophils (%) (Auto) 0.8 % (0.0-3.0) Basophils (%) (Auto) 1.0 % (0.0-2.0) Sodium Level 139 MMOL/L (136-145) Potassium Level 3.4 MMOL/L (3.5-5.1) L Chloride Level 105 MMOL/L (98-107) Carbon Dioxide Level 24 MMOL/L (21-32) Anion Gap 10 mmol/L (5-15) Blood Urea Nitrogen 7 mg/dL (7-18) Creatinine 1.0 MG/DL (0.55-1.30) Estimat Glomerular Filtration Rate > 60 mL/min (>60) Glucose Level 93 MG/DL (74-106) Calcium Level 8.7 MG/DL (8.5-10.1) Neurologic Exam Mental Status: awake, oriented x4 Speech: normal speech Language: normal language Cranial Nerve II: visual hernández Cranial Nerves III, IV, : PERRLA, EOMI Gait: stable Objective normal neuro exam Impression/Recommendations Problems: (1) Ovarian cyst (2) Hyponatremia (3) Elevated lipase (4) Nausea and vomiting in adult patient (5) Intractable cyclical vomiting (6) Hypercalcemia (7) Leukocytosis (8) Hypokalemia (9) Accelerated hypertension (10) Hypokalemia (11) Vomiting (12) vomiting able to tolerate PO fluids (13) Abdominal pain (14) Intractable cyclical vomiting (15) Anxiety (16) Dehydration (17) Cannabis abuse (18) Cyclic vomiting syndrome (19) Intractable nausea and vomiting Status: stable, progressing Diagnostic Impression unlikely migraine related Severe anxiety Nausea Cont IVFs PT OT Ashish Michaud MD Jul 06, 2020 12:30
--- NOTE | 2020-07-06 23:50 | Psych Consult Progress Note ---
Psychiatry Progress Note Psychiatry Progress Note Subjective the pt slept well still anxious Neurological/Psychiatric: Denies: no symptoms, anxiety, depressed, emotional problems, headache, numbness, paresthesia, pre-existing deficit, seizure, tingling, tremors, weakness, other Allergies: Coded Allergies: SULFA (SULFONAMIDE ANTIBIOTICS) (Verified Allergy, Unknown, 02/23/11) Objective Data Height (Feet): 5 Height (Inches): 8.00 Weight (Pounds): 154 General Appearance: WD/WN, no apparent distress, alert, alert oriented x3 Additional Comments: Alert, oriented times self, place, situation. Mood is anxious. Affect is constricted, congruent with mood. Thought process is concrete. Thought content, no suicidal or homicidal ideation. ASSESSMENT: 1. Cannabis abuse. 2. Anxiety disorder. PLAN: 1. Continue Lexapro. 2. Remeron. 3. Provide the patient with reality orientation and supportive therapy. Assessment/Plan Status: stable, progressing Jonathan Elise MD Jul 06, 2020 23:50
== END 2020-07-06 12:34 | disposition home or self-care (01) | DRG 394 ==
LOC: EMR 00:50 → EDBEDREQ 07:28 → 4E 07:54
DX: R11.15 Cyclical vomiting syndrome unrelated to migraine (principal); N17.9 Acute kidney failure, unspecified; E86.0 Dehydration; Z88.2 Allergy status to sulfonamides; F41.9 Anxiety disorder, unspecified; F12.10 Cannabis abuse, uncomplicated; N83.209 Unspecified ovarian cyst, unspecified side; E83.52 Hypercalcemia
CPT/HCPCS: 36415; 80048; 80053; 80307; 81003; 81025; 83036; 83690; 83735; 84100; 84443; 85025; 85610; 85730; 87040; 93005; 96361; 96374; 96375; 96376; 99285; J2405; J2765; J7030; J8499

== ENCOUNTER 2020-07-20 13:17 | Observation (INO) | payer OTHER ==
[~2020-07-20] VITALS: Ht 172.7 cm; Wt 70.3 kg
[~2020-07-20 13:17] MED LIST changes: +ONDANSETRON ODT4 MG BC
[2020-07-20 13:30] VITALS: BP 171/106
--- NOTE | 2020-07-20 13:30 | NUR ---
ED Nurse Note: Pt walked in from home c/o abd pain with n/v since this morning. Pt has hx of cyclic vomit syndrome. Respirations labored on room air. Vitals stable as documented. A+Ox4
--- NOTE | 2020-07-20 13:35 | NUR ---
ED Nurse Note: BP elevated in 170s systolic.
--- NOTE | 2020-07-20 13:47 | Emergency Room Report ---
History of Present Illness General Chief Complaint: Abdominal Pain Source: Patient Present Illness HPI Patient presents with anxiety, suprapubic pain and uncontrollable vomiting. This resumed earlier today. She was recently discharged from the hospital for similar presentation. She states she needs Ativan, Zofran and pain medication. She states she has intractable vomiting on occasion. She also has an ovarian cyst. She denies dysuria or vaginal discharge or bleeding. She does not believe she is at this time. The pain is nonradiating and constant and aching and somewhat sharp. She denies any change in her bowels. She is extremely anxious. No fevers, chills, sore throat, chest pain, palpitations, shortness of breath, joint pain, rashes, visual changes, headache. Hospitalization earlier this month with these discharge diagnoses: (1) Ovarian cyst (2) Hyponatremia (3) Elevated lipase (4) Nausea and vomiting in adult patient (5) Intractable cyclical vomiting (6) Hypercalcemia (7) Leukocytosis (8) Hypokalemia (9) Accelerated hypertension (10) Hypokalemia (11) Vomiting (12) vomiting able to tolerate PO fluids (13) Abdominal pain (14) Intractable cyclical vomiting (15) Anxiety (16) Dehydration (17) Cannabis abuse (18) Cyclic vomiting syndrome (19) Intractable nausea and vomiting Of note the patient was evaluated by a business services specialist sales and psychiatrist during the prior hospitalization. He was suggested that she continue Lexapro and Remeron for her anxiety. It was also felt that THC was significant component of her presentation. 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 Last Menstrual Period: NA Now: No Reviewed Nursing Documentation: PMH: Agreed; PSxH: Agreed Nursing Documentation-PMH Past Medical History: No History, Except For Hx Cardiac Problems: No Hx Hypertension: No Hx Pacemaker: No Hx Asthma: Yes Hx COPD: No Hx Diabetes: No Hx Cancer: No Hx Gastrointestinal Problems: Yes - cyclic vomiting Hx Dialysis: No Hx Neurological Problems: No Hx Cerebrovascular Accident: No Hx Transient Ischemic Attacks: No Hx Dementia: No Hx Alzheimer's Disease: No Hx Parkinson's Disease: No Hx Meningitis: No Hx Encephalitis: No Hx Seizures: No Hx Epilepsy: No Hx Multiple Sclerosis: No Hx Cerebral Palsy: No Hx Amyotrophic Lat Sclerosis: No Hx Guillian-L[place] Syndrome: No Hx Paralysis: No Hx Peripheral Neuropathy: No Hx Spinal Cord Injury: No Hx Head Trauma: No Hx Traumatic Brain Injury: No Hx Memory Loss: No Hx Concentration Difficulty: No Hx Speech Problem: No Hx Tremors: No Hx Vertigo: No Hx Dizziness: No Hx Syncope: No Hx Headaches: No Hx Aphasia: No Hx Dysphasia: No Hx Numbness: No Hx Weakness: No Hx Fatigue: No Hx Neurologic Surgery: No Hx Brain Shunt: No Review of Systems All Other Systems: negative except mentioned in HPI Physical Exam Vital Signs Date Time Temp Pulse Resp B/P (MAP) Pulse Ox O2 Delivery O2 Flow Rate FiO2 07/20/20 13:26 98.1 115 17 180/114 (136) 98 Room Air Sp02 EP Interpretation: reviewed, normal General Appearance: GCS 15, non-toxic, mild distress - Writhing in pain and anxiety Head: normocephalic Eyes: bilateral eye normal inspection, bilateral eye PERRL, bilateral eye EOMI ENT: moist mucus membranes Neck: full range of motion, supple Respiratory: lungs clear, normal breath sounds Cardiovascular #1: no edema, tachycardia Cardiovascular #2: 2+ radial (R) Gastrointestinal: normal inspection, no mass, non-distended, no guarding, no rebound, tenderness - Suprapubic, decreased bowel sounds Genitourinary: no CVA tenderness Musculoskeletal: back normal, normal range of motion, gait/station normal Neurologic: alert, oriented x3, grossly normal Psychiatric: anxious Skin: no rash, warm/dry Medical Decision Making Diagnostic Impression: Primary Impression: Intractable nausea and vomiting Additional Impressions: Abdominal pain Qualified Codes: R10.30 - Lower abdominal pain, unspecified History of ovarian cyst ER Course Patient presents with suprapubic pain, nausea, vomiting and anxiety. Differential includes ovarian cyst, cyclic vomiting, anxiety, electrolyte imbalance, ectopic , urinary tract infection, gastritis amongst others. Patient in moderate distress at this time. Evaluation with labs. Patient treated with IV hydration, Reglan, Zofran and Ativan. Serial exams indicated. Based on history and exam imaging studies not indicated at this time. White count elevated. CMP remarkable for low bicarbonate. Some pyuria. Patient continues to vomit and complaining of pain. Morphine and Zofran administered. Some improvement in pain with morphine however patient continues to vomit. Phenergan administered IM. Patient continuing to vomit after Phenergan and complaining about pain. Admission for observation. Laboratory Tests Test 07/20/20 13:45 07/20/20 16:30 White Blood Count 12.7 K/UL (4.8-10.8) H Red Blood Count 4.68 M/UL (4.20-5.40) Hemoglobin 13.9 G/DL (12.0-16.0) Hematocrit 42.3 % (37.0-47.0) Mean Corpuscular Volume 91 FL (80-99) Mean Corpuscular Hemoglobin 29.8 PG (27.0-31.0) Mean Corpuscular Hemoglobin Concent 32.9 G/DL (32.0-36.0) Red Cell Distribution Width 12.5 % (11.6-14.8) Platelet Count 311 K/UL (150-450) Mean Platelet Volume 6.3 FL (6.5-10.1) L Neutrophils (%) (Auto) 75.3 % (45.0-75.0) H Lymphocytes (%) (Auto) 19.8 % (20.0-45.0) L Monocytes (%) (Auto) 3.9 % (1.0-10.0) Eosinophils (%) (Auto) 0.0 % (0.0-3.0) Basophils (%) (Auto) 1.0 % (0.0-2.0) Prothrombin Time 10.7 SEC (9.30-11.50) Prothrombin Time INR 1.0 (0.9-1.1) Activated Partial Thromboplast Time 23 SEC (23-33) Sodium Level 140 MMOL/L (136-145) Potassium Level 3.5 MMOL/L (3.5-5.1) Chloride Level 104 MMOL/L (98-107) Carbon Dioxide Level 18 MMOL/L (21-32) L Anion Gap 18 mmol/L (5-15) H Blood Urea Nitrogen 8 mg/dL (7-18) Creatinine 1.0 MG/DL (0.55-1.30) Estimated Glomerular Filtration Rate > 60 mL/min (>60) Glucose Level 140 MG/DL (74-106) H Calcium Level 9.8 MG/DL (8.5-10.1) Total Bilirubin 0.3 MG/DL (0.2-1.0) Aspartate Amino Transferase (AST) 16 U/L (15-37) Alanine Aminotransferase (ALT) 21 U/L (12-78) Alkaline Phosphatase 72 U/L (46-116) Total Protein 8.3 G/DL (6.4-8.2) H Albumin 4.6 G/DL (3.4-5.0) Globulin 3.7 g/dL Albumin/Globulin Ratio 1.2 (1.0-2.7) Lipase 187 U/L (73-393) Human Chorionic Gonadotropin, Qual Negative (NEGATIVE) Urine Color Yellow Urine Appearance Slightly cloudy Urine pH 5 (4.5-8.0) Urine Specific [place] 1.025 (1.005-1.035) Urine Protein 2+ (NEGATIVE) H Urine Glucose (UA) Negative (NEGATIVE) Urine Ketones Negative (NEGATIVE) Urine Blood 1+ (NEGATIVE) H Urine Nitrite Negative (NEGATIVE) Urine Bilirubin Negative (NEGATIVE) Urine Urobilinogen Normal MG/DL (0.0-1.0) Urine Leukocyte Esterase 2+ (NEGATIVE) H Urine RBC 5-10 /HPF (0 - 2) H Urine WBC 0-2 /HPF (0 - 2) Urine Squamous Epithelial Cells Few /LPF (NONE/OCC) Urine Amorphous Sediment Moderate /LPF (NONE) H Urine Bacteria Few /HPF (NONE) Last Vital Signs Date Time Temp Pulse Resp B/P (MAP) Pulse Ox O2 Delivery O2 Flow Rate FiO2 07/21/20 00:10 Room Air 07/21/20 00:00 98.4 92 18 142/82 (102) 97 Status: improved Disposition: PLACE IN OBSERVATION Condition: Serious Maxi Duffy MD Jul 20, 2020 13:47
--- NOTE | 2020-07-20 13:49 | NUR ---
ED Nurse Note: per demetri Harp to insert IV on foot.
[2020-07-20] MEDS ORDERED: DiphenhydrAMINE 50mg/ml Inj IVP ONE (14:00)
[2020-07-20] MEDS ORDERED: Metoclopramide 10mg/2ml Inj IVP ONE (14:00)
[2020-07-20] MEDS ORDERED: LORazepam Inj 2mg/ml 1ml IV ONE (14:00)
[2020-07-20 14:10] LABS: HEMATOCRIT 42.3 % (37.0-47.0); HEMOGLOBIN 13.9 G/DL (12.0-16.0); LYMPHOCYTES % (AUTO) 19.8 % (20.0-45.0); MEAN CORPUSCULAR VOLUME 91 FL (80-99); MONOCYTES % (AUTO) 3.9 % (1.0-10.0); NEUTROPHILS % (AUTO) 75.3 % (45.0-75.0); PLATELET COUNT 311 K/UL (150-450); RED BLOOD COUNT 4.68 M/UL (4.20-5.40); RED CELL DISTRIBUTION WIDTH 12.5 % (11.6-14.8); WHITE BLOOD COUNT 12.7 K/UL (4.8-10.8)
[2020-07-20 14:22] LABS: ANION GAP 18 mmol/L (5-15); BLOOD UREA NITROGEN 8 mg/dL (7-18); CALCIUM 9.8 MG/DL (8.5-10.1); CARBON DIOXIDE 18 MMOL/L (21-32); CHLORIDE 104 MMOL/L (98-107); POTASSIUM 3.5 MMOL/L (3.5-5.1); SODIUM 140 MMOL/L (136-145)
[2020-07-20 14:26] LABS: ALANINE AMINOTRANSFERASE 21 U/L (12-78); ALBUMIN 4.6 G/DL (3.4-5.0); ALBUMIN/GLOBULIN RATIO 1.2 (1.0-2.7); ALKALINE PHOSPHATASE 72 U/L (46-116); ASPARTATE AMINO TRANSFERASE 16 U/L (15-37); BILIRUBIN,TOTAL 0.3 MG/DL (0.2-1.0)
[2020-07-20] MEDS ORDERED: Morphine Sulfate 4mg/ml Inj (IV USE ONLY) IVP ONE ×2 (16:00→17:45)
[2020-07-20 17:05] LABS: APPEARANCE,URINE SLIGHTLY CLOUDY; BILIRUBIN, URINE NEGATIVE (NEGATIVE); GLUCOSE, URINE (UA) NEGATIVE (NEGATIVE); KETONES,URINE NEGATIVE (NEGATIVE); LEUKOCYTE ESTERASE ,URINE 2+ (NEGATIVE); PH,URINE 5 (4.5-8.0); PROTEIN,URINE 2+ (NEGATIVE); UROBILINOGEN,URINE NORMAL MG/DL (0.0-1.0)
[2020-07-20 17:16] LABS: COLOR,URINE YELLOW
[2020-07-20 17:32] LABS: NITRITE,URINE NEGATIVE (NEGATIVE)
--- NOTE | 2020-07-20 19:08 | NUR ---
HAND-OFF: Report given to DENNIS Rodas. Pt in stable condition. Plan of care endorsed.
--- NOTE | 2020-07-20 19:20 | NUR ---
ED Nurse Note: Received report from DENNIS Dubois. Patient resting in bed, no acute distress noted during reassessment. Belongings list completed.
[2020-07-20] MEDS ORDERED: AMITRIPTYLINE25 MG ORAL (19:43)
--- NOTE | 2020-07-20 19:50 | NUR ---
TRANSFER TO FLOOR: Patient transferred to med surg as ordered, per ERMD. Report given to DENNIS Ariza. Patient transported via gurney in stable condition accompanied by tool rental technician.
--- NOTE | 2020-07-20 20:00 | NUR ---
NURSE NOTES: Pt is admitted to the floor Dx with intractable vomiting under DR. Lopez in stable condition. Report received from DENNIS Alfaro ER. Vitals stable. Pt is still vomiting and has severe nausea. Pt is awake, alert and ambulatory. Pt has a IV access on the left foot. Pt's skin is intact, no SOB, afebrile, no coughing. Pt is oriented to the unit. Belongings sheet verified. Dr. Lopez is called for admission orders.
[2020-07-20 20:11] VITALS: BP 158/88
--- NOTE | 2020-07-20 20:25 | NUR ---
NURSE NOTES: Dr. Levine called regarding patient. Dr. Levine is to input in orders in the computer. Pt is calm in bed now. Pt instructed to call for assistance as needed. Call light within reach, bed locked low, side rails up low in position.
[2020-07-20] MEDS: Metoclopramide 10mg/2ml Inj IVP PRN (20:44)
[2020-07-20] MEDS ORDERED: LORazepam Inj 2mg/ml 1ml IV PRN (20:45)
[2020-07-20] MEDS: LR 1000ml 1,000 ML IV SCH (21:43)
--- NOTE | 2020-07-20 23:39 | History and Physical ---
History of Present Illness General Reason for Hospitalization: Abdominal Pain Present Illness HPI This is a 35yo F well known to the ED for cannabinoid induced cyclic vomiting. She reports starting today in the morning. Denies hematemesis. Reported to ED and was give morphine, zofran and phenergan with moderate improvement. She has associated abdominal pain, denies diarrhea. She denies eating uncooked food, or recent travel. Allergies: Coded Allergies: SULFA (SULFONAMIDE ANTIBIOTICS) (Verified Allergy, Unknown, 02/23/11) COVID-19 Screening Contact w/high risk pt: No Recent Travel to affected area: No Experienced COVID-19 symptoms?: No Medication History Scheduled Amitriptyline HCl (Elavil*), 25 MG ORAL BEDTIME, (Reported) Discontinued Medications Amitriptyline HCl (Elavil*), 50 MG ORAL BEDTIME Discontinued Reason: Medication dose changed Famotidine* (Pepcid 20mg tablet*), 20 MG ORAL DAILY Discontinued Reason: MD discontinued med Lorazepam* (Ativan*), 1 MG ORAL THREE TIMES A DAY, (Reported) Discontinued Reason: MD discontinued med Ondansetron Odt* (Zofran Odt*), 8 MG ORAL Q6H PRN for Nausea & Vomiting Discontinued Reason: MD discontinued med Promethazine Hcl* (Phenergan*), 25 MG ORAL Q6H Discontinued Reason: MD discontinued med Patient History Healthcare decision maker N Resuscitation status Advanced Directive on File Family History Family History: Patient reports no known family medical history. Review of Systems Gastrointestinal: Reports: abdominal pain Physical Exam General Appearance: WD/WN, alert, mild distress Lines, tubes and drains: peripheral HEENT: normocephalic, atraumatic Neck: non-tender, supple, normal inspection Respiratory/Chest: chest wall non-tender, lungs clear, normal breath sounds Cardiovascular/Chest: normal peripheral pulses, regular rhythm Abdomen: normal bowel sounds, non tender, soft Extremities: normal range of motion, non-tender Skin Exam: normal pigmentation Neurologic: media relations coordinator II-XII grossly normal, oriented x 3 Last 24 Hour Vital Signs Date Time Temp Pulse Resp B/P (MAP) Pulse Ox O2 Delivery O2 Flow Rate FiO2 07/20/20 20:11 98.8 100 20 158/88 (111) 97 07/20/20 19:50 98.3 73 20 133/77 97 Room Air 07/20/20 13:30 98.3 99 17 171/106 99 Room Air 07/20/20 13:30 99 22 Room Air 07/20/20 13:26 98.1 115 17 180/114 (136) 98 Room Air Laboratory Tests Test 07/20/20 13:45 07/20/20 16:30 White Blood Count 12.7 K/UL (4.8-10.8) H Red Blood Count 4.68 M/UL (4.20-5.40) Hemoglobin 13.9 G/DL (12.0-16.0) Hematocrit 42.3 % (37.0-47.0) Mean Corpuscular Volume 91 FL (80-99) Mean Corpuscular Hemoglobin 29.8 PG (27.0-31.0) Mean Corpuscular Hemoglobin Concent 32.9 G/DL (32.0-36.0) Red Cell Distribution Width 12.5 % (11.6-14.8) Platelet Count 311 K/UL (150-450) Mean Platelet Volume 6.3 FL (6.5-10.1) L Neutrophils (%) (Auto) 75.3 % (45.0-75.0) H Lymphocytes (%) (Auto) 19.8 % (20.0-45.0) L Monocytes (%) (Auto) 3.9 % (1.0-10.0) Eosinophils (%) (Auto) 0.0 % (0.0-3.0) Basophils (%) (Auto) 1.0 % (0.0-2.0) Prothrombin Time 10.7 SEC (9.30-11.50) Prothromb Time International Ratio 1.0 (0.9-1.1) Activated Partial Thromboplast Time 23 SEC (23-33) Sodium Level 140 MMOL/L (136-145) Potassium Level 3.5 MMOL/L (3.5-5.1) Chloride Level 104 MMOL/L (98-107) Carbon Dioxide Level 18 MMOL/L (21-32) L Anion Gap 18 mmol/L (5-15) H Blood Urea Nitrogen 8 mg/dL (7-18) Creatinine 1.0 MG/DL (0.55-1.30) Estimat Glomerular Filtration Rate > 60 mL/min (>60) Glucose Level 140 MG/DL (74-106) H Calcium Level 9.8 MG/DL (8.5-10.1) Total Bilirubin 0.3 MG/DL (0.2-1.0) Aspartate Amino Transf (AST/SGOT) 16 U/L (15-37) Alanine Aminotransferase (ALT/SGPT) 21 U/L (12-78) Alkaline Phosphatase 72 U/L (46-116) Total Protein 8.3 G/DL (6.4-8.2) H Albumin 4.6 G/DL (3.4-5.0) Globulin 3.7 g/dL Albumin/Globulin Ratio 1.2 (1.0-2.7) Lipase 187 U/L (73-393) Human Chorionic Gonadotropin, Qual Negative (NEGATIVE) Urine Color Yellow Urine Appearance Slightly cloudy Urine pH 5 (4.5-8.0) Urine Specific [place] 1.025 (1.005-1.035) Urine Protein 2+ (NEGATIVE) H Urine Glucose (UA) Negative (NEGATIVE) Urine Ketones Negative (NEGATIVE) Urine Blood 1+ (NEGATIVE) H Urine Nitrite Negative (NEGATIVE) Urine Bilirubin Negative (NEGATIVE) Urine Urobilinogen Normal MG/DL (0.0-1.0) Urine Leukocyte Esterase 2+ (NEGATIVE) H Urine RBC 5-10 /HPF (0 - 2) H Urine WBC 0-2 /HPF (0 - 2) Urine Squamous Epithelial Cells Few /LPF (NONE/OCC) Urine Amorphous Sediment Moderate /LPF (NONE) H Urine Bacteria Few /HPF (NONE) Microbiology Date/Time Source Procedure Growth Status 07/20/20 19:21 Rectum Received Height (Feet): 5 Height (Inches): 8.00 Weight (Pounds): 155 Medications Current Medications Medications (Trade) Dose Ordered Sig/Shanta Route PRN Reason Start Time Stop Time Status Last Admin Dose Admin Amitriptyline HCl (Elavil) 25 mg BEDTIME ORAL 07/20/20 21:00 08/19/20 20:59 07/20/20 20:44 Dextrose (Dextrose 50%) 25 ml Q30M PRN IV Hypoglycemia 07/20/20 20:30 10/18/20 20:29 Dextrose (Dextrose 50%) 50 ml Q30M PRN IV Hypoglycemia 07/20/20 20:30 10/18/20 20:29 Lactated Ringer's 1,000 ml @ 125 mls/hr Q8H IV 07/20/20 20:45 08/19/20 20:44 07/20/20 21:43 Lorazepam (Ativan 2mg/ml 1ml) 1 mg Q4H PRN IV For Anxiety 07/20/20 20:45 07/27/20 20:44 07/20/20 20:44 Metoclopramide HCl (Reglan) 10 mg Q6H PRN IVP Nausea & Vomiting 07/20/20 20:30 08/19/20 20:29 07/20/20 20:44 Ondansetron HCl (Zofran) 4 mg Q6H PRN IVP Nausea & Vomiting 07/20/20 20:30 08/19/20 20:29 Assessment/Plan Problem List: (1) Intractable cyclical vomiting Assessment & Plan: ORDERS - drug screen pending - LR IVF overnight - Antiemetics PRN - If tolerated regular diet okay for discharge - Keep for observation ICD Codes: G43.A1 - Cyclical vomiting, intractable SNOMED: 48735728 (2) Dehydration Assessment & Plan: as above ICD Codes: E86.0 - Dehydration SNOMED: 64042217 (3) Cannabis abuse Assessment & Plan: cessation ICD Codes: F12.10 - Cannabis abuse, uncomplicated SNOMED: 18460404 (4) Hypokalemia Assessment & Plan: as above ICD Codes: E87.6 - Hypokalemia SNOMED: 13181366 Gavino Levine D.O. Jul 20, 2020 23:39
[2020-07-21] VITALS: BP 142/82
--- NOTE | 2020-07-21 03:25 | NUR ---
NURSE HAND-OFF: Important Events on Shift:[New admit, nausea and vomiting] Patient Status: [ stable] Diet: [Regular] Pending Orders: [] Pending Results/Labs:[] Pending MD notification:[] Latest Vital Signs: Temperature 98.4 , Pulse 92 , B/P 142 /82 , Respiratory Rate 18 , O2 SAT 97 , Room Air, O2 Flow Rate . Vital Sign Comment: [] Latest Shaw Fall Score: 35 Fall Risk: Medium Risk Safety Measures: Call light Within Reach, Bed Alarm Zone 2, Side Rails Side Rails x2, Bed position Low and Locked. Fall Precautions: Yellow Socks Yellow Gown Door Sign Patient Fall Education Report given to [DENNIS Hopkins].
[2020-07-21 04:00] VITALS: BP 137/73
[2020-07-21] MEDS: Metoclopramide 10mg/2ml Inj IVP PRN ×2 (04:17→09:50)
[2020-07-21] MEDS: LR 1000ml 1,000 ML IV SCH (04:24)
--- NOTE | 2020-07-21 05:52 | NUR ---
NURSE HAND-OFF: Important Events on Shift: [id number] Patient Status: Stable Diet: Regular Pending Orders: AM labs Pending Results/Labs: Yes Pending MD notification:None at this time Latest Vital Signs: Temperature 97.3 , Pulse 74 , B/P 137 /73 , Respiratory Rate 16 , O2 SAT 97 , Room Air, O2 Flow Rate . Vital Sign Comment: stable at this time Latest Shaw Fall Score: 35 Fall Risk: Medium Risk Safety Measures: Call light Within Reach, Bed Alarm Zone 2, Side Rails Side Rails x2, Bed position Low and Locked. Fall Precautions: yes Yellow Socks: no Yellow Gown: no Door Sign: no Patient Fall Education: yes Report given to Mickey
--- NOTE | 2020-07-21 07:35 | NUR ---
NURSE NOTES: Handoff received from Kellie COLLINS. Patient is asleep, no signs of distress noted. Breathing is even and unlabored on room air. Patient has IV on left foot, patent and asymptomatic. Bed is low and locked, side rails up x2, call light is within reach.
[2020-07-21 08:00] VITALS: BP 133/81
[2020-07-21 09:28] LABS: ANION GAP 8 mmol/L (5-15); BLOOD UREA NITROGEN 8 mg/dL (7-18); CALCIUM 9.1 MG/DL (8.5-10.1); CARBON DIOXIDE 25 MMOL/L (21-32); CHLORIDE 107 MMOL/L (98-107); CREATININE 0.9 MG/DL (0.55-1.30); POTASSIUM 3.3 MMOL/L (3.5-5.1); SODIUM 140 MMOL/L (136-145)
--- NOTE | 2020-07-21 11:33 | Discharge Summary ---
Discharge Summary Hospital Course Date of Admission Jul 20, 2020 at 18:10 Date of Discharge 07/21/20 Admitting Diagnosis intractable vomiting HPI his is a 35yo F well known to the ED for cannabinoid induced cyclic vomiting. She reports starting today in the morning. Denies hematemesis. Reported to ED and was give morphine, zofran and phenergan with moderate improvement. She has associated abdominal pain, denies diarrhea. She denies eating uncooked food, or recent travel. Consultations GI Hospital Course Patient did well overnight and throwing up stopped with medications. She would like to go home. Her potassium was repleted. She has enough Zofran at home so does not need any prescriptions. She will follow up with her PCP and GI out patient. Gave her ED precautions on when to return to the ED. Discharge Medications Continued Medications: Amitriptyline HCl (Elavil*) 25 Mg Tablet 25 MG ORAL BEDTIME for anxiety, TAB Discharge Condition Upon Discharge: stable Discharge Vital Signs Last Vital Signs Date Time Temp Pulse Resp B/P (MAP) Pulse Ox O2 Delivery O2 Flow Rate FiO2 07/21/20 09:00 Room Air 07/21/20 08:00 98.8 83 19 133/81 (98) 98 Discharge Disposition Patient was discharged to home Discharge Diagnoses: (1) Intractable cyclical vomiting (2) Anxiety (3) Hypokalemia (4) Hypercalcemia (5) Hyponatremia Junior Fisher M.D. Jul 21, 2020 11:33
[2020-07-21 12:00] VITALS: BP 128/78
--- NOTE | 2020-07-21 13:57 | NUR ---
NURSE NOTES: Patient safely discharged from to home via private vehicle. Patient was provided with information packet, her belongings were verified/sheet was signed, patient made follow-up appointment for next week. Patient's IV and ID wristband were removed and her questions were answered.
--- NOTE | 2020-07-21 15:47 | NUR ---
*-* INSURANCE *-* [employer] (NO AUTH NEEDED FOR OBSERVATION) P: [phone] FAX CLINICALS TO [phone] IF BECOMES IN PATIENT Addendum: 07/21/20 at 1646 by LOIDA WREN LVN PATIENT NOT ADMITTED FOR OBSERVATION
--- NOTE | 2020-07-21 16:39 | NUR ---
CASE MANAGEMENT:INITIAL REVIEW 35YR OLD FEMALE FROM HOME CC: ABDOMINAL PAIN SI:INTRACTABLE VOMITING 98.1 115 17 180/114 98% ON RA WBC 12.7 BG 140 BUN 18 CO2 18 IS:IVF NS BOLUS X2 IV ATIVAN X1 IV ZOFRAN X2 IV REGLAN X1 IV MORPHINE SULFATE X2 IV BENADRYL X1 IM PHENERGAN X1 \: 3E MED SURG UNIT DCP: HOME WHEN STABLE PLAN: OBSERVATION STATUS CONT IV HYDRATE ~DRUG TEST-IN PROCESS
== END 2020-07-21 13:55 | disposition home or self-care (01) ==
LOC: EMR 13:58 → 3E 18:10 → EDBEDREQ 19:09 → 3E 19:43
DX: R11.15 Cyclical vomiting syndrome unrelated to migraine (principal); E86.0 Dehydration; F12.10 Cannabis abuse, uncomplicated; E87.6 Hypokalemia; F41.9 Anxiety disorder, unspecified; E83.52 Hypercalcemia; E87.1 Hypo-osmolality and hyponatremia; Z88.2 Allergy status to sulfonamides; Z79.899 Other long term (current) drug therapy; R00.0 Tachycardia, unspecified; R10.30 Lower abdominal pain, unspecified
CPT/HCPCS: 36415; 80048; 80053; 81003; 83690; 84703; 85025; 85610; 85730; 87081; 96361; 96372; 96374; 96375; 96376; 99284; G0378; J1200; J2270; J2405; J2550; J2765; J7030; J8499

== ENCOUNTER 2020-10-09 03:46 | Inpatient (IN) | payer OTHER ==
[~2020-10-09] VITALS: Ht 172.7 cm; Wt 70.4 kg
[2020-10-09] MEDS ORDERED: LORazepam Inj 2mg/ml 1ml IV ONE (04:00)
[2020-10-09] MEDS ORDERED: HYDROmorphone 1mg/ml Carpuject IVP ONE (04:00)
--- NOTE | 2020-10-09 04:02 | Emergency Room Report ---
History of Present Illness General Chief Complaint: Vomiting Source: Patient, Medical Record (Sam Moore MD) Present Illness HPI This a 35-year-old female with a history of cyclic vomiting syndrome with multiple ER visit and admission. She presents with chief complaint of abdominal pain with nausea and vomiting. Onset for last few hours now. Vomiting is nonbloody nonbilious. Abdominal pain is diffuse in nature. 10 out of 10. Nothing made it better. Nothing made it worse. No diarrhea. No fever or chills. Similar symptom in the past. She still smokes marijuana. (Sam Moore MD) Allergies: Coded Allergies: SULFA (SULFONAMIDE ANTIBIOTICS) (Verified Allergy, Unknown, 02/23/11) COVID-19 Screening Contact w/high risk pt: No Recent Travel to affected area: No Experienced COVID-19 symptoms?: No COVID-19 Testing performed CONTENT STRATEGIST: No (Sam Moore MD) Patient History Past Medical History: see triage record, old chart reviewed, psych hx Past Surgical History: other Pertinent Family History: none Social History: Denies: smoking Now: No Immunizations: other Reviewed Nursing Documentation: PMH: Agreed; PSxH: Agreed (Sam Moore MD) Nursing Documentation-PMH Hx Cardiac Problems: No Hx Hypertension: No Hx Pacemaker: No Hx Asthma: Yes Hx COPD: No Hx Diabetes: No Hx Cancer: No Hx Gastrointestinal Problems: Yes - Nausea and vomiting Hx Dialysis: No Hx Neurological Problems: No Hx Cerebrovascular Accident: No Hx Transient Ischemic Attacks: No Hx Dementia: No Hx Alzheimer's Disease: No Hx Parkinson's Disease: No Hx Meningitis: No Hx Encephalitis: No Hx Seizures: No Hx Epilepsy: No Hx Multiple Sclerosis: No Hx Cerebral Palsy: No Hx Amyotrophic Lat Sclerosis: No Hx Guillian-Rembert Syndrome: No Hx Paralysis: No Hx Peripheral Neuropathy: No Hx Spinal Cord Injury: No Hx Head Trauma: No Hx Traumatic Brain Injury: No Hx Memory Loss: No Hx Concentration Difficulty: No Hx Speech Problem: No Hx Tremors: No Hx Vertigo: No Hx Dizziness: No Hx Syncope: No Hx Headaches: No Hx Aphasia: No Hx Dysphasia: No Hx Numbness: No Hx Weakness: No Hx Fatigue: No Hx Neurologic Surgery: No Hx Brain Shunt: No (Sam Moore MD) Review of Systems Eye: Denies: eye pain, blurred vision ENT: Denies: ear pain, nose congestion, throat swelling Respiratory: Denies: cough, shortness of breath Cardiovascular: Denies: chest pain, palpitations Gastrointestinal: Reports: abdominal pain, nausea, vomiting; Denies: diarrhea Musculoskeletal: Denies: back pain, joint pain Skin: Denies: rash Neurological: Denies: headache, numbness Endocrine: Denies: increased thirst, increased urine Hematologic/Lymphatic: Denies: easy bruising All Other Systems: negative except mentioned in HPI (Sam Moore MD) Physical Exam Vital Signs Date Time Temp Pulse Resp B/P (MAP) Pulse Ox O2 Delivery O2 Flow Rate FiO2 10/09/20 03:51 97.5 97 18 141/93 (109) 99 Room Air Vitals unremarkable Sp02 EP Interpretation: reviewed, normal General Appearance: well appearing, no apparent distress, alert Head: normocephalic, atraumatic Eyes: bilateral eye PERRL, bilateral eye EOMI ENT: hearing grossly normal, normal pharynx Neck: full range of motion, supple, no meningismus Respiratory: chest non-tender, lungs clear, normal breath sounds Cardiovascular #1: regular rate, rhythm, no murmur Gastrointestinal: no mass, no organomegaly, no bruit, non-distended, tenderness - Diffuse, decreased bowel sounds Musculoskeletal: back normal, normal range of motion, gait/station normal Psychiatric: anxious (Sam Moore MD) Medical Decision Making Diagnostic Impression: Primary Impression: Abdominal pain Qualified Codes: R10.84 - Generalized abdominal pain Additional Impression: Cyclic vomiting syndrome ER Course Patient presents with abdominal pain and nausea and vomiting. This is typical of her cyclic vomiting syndrome. Fluids antiemetics and pain medication given. I also gave her Ativan for anxiety. She is sleeping comfortably now. Labs unremarkable. Once awake, if she is tolerating p.o., she can be discharged home . Unfortunately, pt unable to tolerate PO intake and still has sx. will admit. (Sam Moore MD) ER Course Assumed care of the patient from the previous provider at approximately 0 600. Please refer to initial note for full history and physical exam. Briefly, 35-year-old female history of cyclic vomiting syndrome presents for abdominal pain and vomiting. Patient was sleeping comfortably this morning after receiving medications but is now awake complaining of persistent nausea. She is dry heaving. Provided additional fluids and antiemetics however unable to control her symptoms. She will require admission for further care. Admitted to panel physicianJohn Laboratory Tests Test 10/09/20 04:04 10/09/20 07:15 White Blood Count 14.4 K/UL (4.8-10.8) H Red Blood Count 5.08 M/UL (4.20-5.40) Hemoglobin 15.5 G/DL (12.0-16.0) Hematocrit 45.1 % (37.0-47.0) Mean Corpuscular Volume 89 FL (80-99) Mean Corpuscular Hemoglobin 30.5 PG (27.0-31.0) Mean Corpuscular Hemoglobin Concent 34.3 G/DL (32.0-36.0) Red Cell Distribution Width 11.8 % (11.6-14.8) Platelet Count 276 K/UL (150-450) Mean Platelet Volume 7.2 FL (6.5-10.1) Neutrophils (%) (Auto) 75.8 % (45.0-75.0) H Lymphocytes (%) (Auto) 18.0 % (20.0-45.0) L Monocytes (%) (Auto) 5.6 % (1.0-10.0) Eosinophils (%) (Auto) 0.0 % (0.0-3.0) Basophils (%) (Auto) 0.6 % (0.0-2.0) Sodium Level 142 MMOL/L (136-145) Potassium Level 3.8 MMOL/L (3.5-5.1) Chloride Level 105 MMOL/L (98-107) Carbon Dioxide Level 21 MMOL/L (21-32) Anion Gap 16 mmol/L (5-15) H Blood Urea Nitrogen 10 mg/dL (7-18) Creatinine 1.2 MG/DL (0.55-1.30) Estimated Glomerular Filtration Rate 51.7 mL/min (>60) Glucose Level 166 MG/DL (74-106) H Calcium Level 9.4 MG/DL (8.5-10.1) Total Bilirubin 0.5 MG/DL (0.2-1.0) Aspartate Amino Transferase (AST) 25 U/L (15-37) Alanine Aminotransferase (ALT) 19 U/L (12-78) Alkaline Phosphatase 60 U/L (46-116) Total Protein 8.4 G/DL (6.4-8.2) H Albumin 4.6 G/DL (3.4-5.0) Globulin 3.8 g/dL Albumin/Globulin Ratio 1.2 (1.0-2.7) Lipase 108 U/L (73-393) Urine Color Yellow Urine Appearance Clear Urine pH 6.5 (4.5-8.0) Urine Specific [place] 1.015 (1.005-1.035) Urine Protein 2+ (NEGATIVE) H Urine Glucose (UA) Negative (NEGATIVE) Urine Ketones 4+ (NEGATIVE) H Urine Blood 3+ (NEGATIVE) H Urine Nitrite Negative (NEGATIVE) Urine Bilirubin Negative (NEGATIVE) Urine Urobilinogen Normal MG/DL (0.0-1.0) Urine Leukocyte Esterase Negative (NEGATIVE) Urine RBC 2-4 /HPF (0 - 2) H Urine WBC 0-2 /HPF (0 - 2) Urine Squamous Epithelial Cells Few /LPF (NONE/OCC) Urine Bacteria Few /HPF (NONE) Urine Mucus Moderate /LPF (NONE/OCC) H Urine HCG, Qualitative Negative (NEGATIVE) (Rolando Stokes MD) Last Vital Signs Date Time Temp Pulse Resp B/P (MAP) Pulse Ox O2 Delivery O2 Flow Rate FiO2 10/09/20 03:51 97.5 97 18 141/93 (109) 99 Room Air Status: improved (Sam Moore MD) Disposition: ADMITTED INPATIENT Condition: Serious Scripts Ondansetron (Zofran) 4 Mg Tablet 4 MG ORAL Q6H PRN for Nausea & Vomiting, #30 TAB 0 Refills Prov: Sam Moore MD 10/09/20 Additional Instructions: Follow-up with your doctor in 2 to 3 days. Avoid marijuana. Return if symptoms worsen. Sam Moore MD Oct 09, 2020 04:02 Rolando Stokes MD Oct 09, 2020 07:44
[2020-10-09 04:11] LABS: BASOPHILS % (AUTO) 0.6 % (0.0-2.0); HEMATOCRIT 45.1 % (37.0-47.0); HEMOGLOBIN 15.5 G/DL (12.0-16.0); MEAN CORPUSCULAR VOLUME 89 FL (80-99); MONOCYTES % (AUTO) 5.6 % (1.0-10.0); NEUTROPHILS % (AUTO) 75.8 % (45.0-75.0); PLATELET COUNT 276 K/UL (150-450); RED BLOOD COUNT 5.08 M/UL (4.20-5.40); RED CELL DISTRIBUTION WIDTH 11.8 % (11.6-14.8); WHITE BLOOD COUNT 14.4 K/UL (4.8-10.8)
--- NOTE | 2020-10-09 04:15 | NUR ---
ED Nurse Note: Recieved pt walk in from home, chavez with c/o severe abdominal pain from cyclic vomiting, pt states it is from smoking, states did smoke recently, pt is actively vomiting and crying, very restless and constantly moving about, pt immediately gowned, at bedside, will resume care as ordered and continue to closely monitor.
[2020-10-09 04:23] LABS: CALCIUM 9.4 MG/DL (8.5-10.1); CREATININE 1.2 MG/DL (0.55-1.30); POTASSIUM 3.8 MMOL/L (3.5-5.1)
[2020-10-09 04:28] LABS: ALBUMIN 4.6 G/DL (3.4-5.0); ALBUMIN/GLOBULIN RATIO 1.2 (1.0-2.7); BILIRUBIN,TOTAL 0.5 MG/DL (0.2-1.0)
[2020-10-09] MEDS ORDERED: ZOFRAN4 MG ORAL (05:16)
--- NOTE | 2020-10-09 05:30 | NUR ---
ED Nurse Note: Pt sleeping, meds effective, no sob or labored breathing, IV fluids infusing, no distress or changes noted.
--- NOTE | 2020-10-09 07:15 | NUR ---
ED Nurse Note: Pt in bed and awakened, ambulated to bathroom, urine sample collected and sent, shift report given to DENNIS Wong.
[2020-10-09 07:20] VITALS: BP 136/90
[2020-10-09 07:29] LABS: APPEARANCE,URINE CLEAR; BILIRUBIN, URINE NEGATIVE (NEGATIVE); GLUCOSE, URINE (UA) NEGATIVE (NEGATIVE); KETONES,URINE 4+ (NEGATIVE); LEUKOCYTE ESTERASE ,URINE NEGATIVE (NEGATIVE); NITRITE,URINE NEGATIVE (NEGATIVE); PH,URINE 6.5 (4.5-8.0); PROTEIN,URINE 2+ (NEGATIVE); UROBILINOGEN,URINE NORMAL MG/DL (0.0-1.0)
[2020-10-09 07:34] LABS: COLOR,URINE YELLOW
[2020-10-09] MEDS ORDERED: Haloperidol 5mg/ml Inj IM ONE (07:45)
--- NOTE | 2020-10-09 07:51 | NUR ---
ED Nurse Note: Discharge instructions about to be given to patient. Pt is still actively vomiting, ERMD aware. ERMD states not to discharge at this time. Orders
--- NOTE | 2020-10-09 08:28 | NUR ---
ED Nurse Note: ADRIENNED notified that pt stil wretching.
[2020-10-09] MEDS ORDERED: DiphenhydrAMINE 50mg/ml Inj IVP ONE (08:30)
[2020-10-09] MEDS ORDERED: Metoclopramide 10mg/2ml Inj IVP ONE (09:30)
[2020-10-09 09:50] VITALS: BP 127/91
--- NOTE | 2020-10-09 11:33 | NUR ---
ED Nurse Note: Report given to Mickey COLLINS.
--- NOTE | 2020-10-09 11:40 | NUR ---
ED Nurse Note: Pt transferred to [facility] floor with all belongings. No acute distress. Cleared by ERMD to be transferred.
[2020-10-09 11:45] VITALS: BP 150/86
--- NOTE | 2020-10-09 11:47 | NUR ---
NURSE NOTES: Patient safely arrived to 3E from the ER. Handoff received from DENNIS MCCLURE. Patient is awake and alert, dry heaving, reporting abdominal pain. IV is intact, right hand 22g. Belongings list verified, will contact Dr. Lopez for admission orders. Bed is low and locked, side rails up x2, call light is within reach.
[2020-10-09] MEDS ORDERED: Mylanta II UD 30ml ORAL PRN (12:00)
[2020-10-09] MEDS ORDERED: Albuterol/Ipratropium 3ml neb HHN PRN (12:00)
[2020-10-09] MEDS ORDERED: Milk of Magnesia 30ml Ud ORAL PRN (12:00)
--- NOTE | 2020-10-09 12:00 | NUR ---
NURSE NOTES: Admission orders received from Dr. Beckwith and carried out.
[2020-10-09] MEDS ORDERED: LORazepam Inj 2mg/ml 1ml IV PRN (12:15)
[2020-10-09] MEDS ORDERED: Morphine Sulfate 2mg/ml Inj(IV/IM USE ONLY) IVP PRN (12:15)
--- NOTE | 2020-10-09 12:37 | History and Physical ---
History of Present Illness General Reason for Hospitalization: Vomiting Present Illness HPI Mrs. Morgan is a 35 year old female with PMH of marijuana usage, cannabinoid hyperemesis, anxiety who presents w/intractable nausea and vomiting. Patient is well known to this facility for multiple episodes of intractable vomiting. Patient report her symptoms started this morning. She is unable to keep any food down and has associated generalized abdominal pain. She notes zofran works the best for her nausea. Although she says she uses less marijuana, she admits to continued use of it and smokes CBD. No fevers, chills, sob, cough, chest pain, diarrhea, constipations, or dysurai. No other recent illnesses, sick contracts or travels. No new medications. PMH: marijuana dependence, cannabinoid hyperemesis, anxiety Fx: no none medical history Sx: none Soc: denies tobacco, alcohol use; frequent and chronic marijuana user Allergies: Coded Allergies: SULFA (SULFONAMIDE ANTIBIOTICS) (Verified Allergy, Unknown, 02/23/11) COVID-19 Screening Contact w/high risk pt: No Recent Travel to affected area: No Experienced COVID-19 symptoms?: No Medication History Scheduled Amitriptyline HCl (Elavil*), 50 MG ORAL BEDTIME, (Reported) Scheduled PRN Ondansetron (Zofran), 4 MG ORAL Q6H PRN for Nausea & Vomiting Ondansetron* (Zofran*), 4 MG ORAL Q6H PRN for Nausea & Vomiting, (Reported) Patient History Healthcare decision maker N Resuscitation status Advanced Directive on File Family History Family History: Patient reports no known family medical history. Review of Systems Constitutional: Reports: weakness; Denies: no symptoms, see HPI, chills, sweats, fever, malaise, other Eye: Denies: no symptoms, see HPI, eye pain, blurred vision, tearing, double vision, nose pain, nose congestion, acuity changes, discharge, other ENT: Denies: no symptoms, see HPI, ear pain, ear discharge, nose pain, nose congestion, throat pain, throat swelling, mouth pain, hearing loss, nasal discharge, other Respiratory: Denies: no symptoms, see HPI, cough, orthopnea, shortness of breath, stridor, wheezing, RODRIGUEZ, sputum, other Cardiovascular: Denies: no symptoms, see HPI, chest pain, edema, palpitations, syncope, PND, other Gastrointestinal: Reports: abdominal pain, nausea, vomiting; Denies: no symptoms, see HPI, constipation, diarrhea, melena, hematemesis, other Genitourinary: Denies: no symptoms, see HPI, discharge, dysuria, frequency, hematuria, pain, retention, incontinence, urgency, vag bleed/dc, other Musculoskeletal: Denies: no symptoms, see HPI, back pain, gout, joint pain, joint swelling, muscle pain, muscle stiffness, other Skin: Denies: no symptoms, see HPI, rash, change in color, change in hair/nails, dryness, lesions, other Psychiatric: Denies: no symptoms, see HPI, prior hx, anxiety, depressed feelings, emotional problems, SI, HI, hallucinations, other Neurological: Denies: no symptoms, see HPI, headache, numbness, paresthesia, seizure, tingling, tremors, focal weakness, syncope, dizziness, other Endocrine: Denies: no symptoms, see HPI, excessive sweating, flushing, intolerance to temperature, increased thirst, increased urine, unexplained weight loss, other Hematologic/Lymphatic: Denies: no symptoms, see HPI, anemia, blood clots, easy bleeding, easy bruising, swollen glands, diathesis, other Physical Exam General Appearance: alert, mild distress, alert oriented x3 HEENT: normocephalic, PERRL Neck: non-tender, normal inspection Respiratory/Chest: lungs clear, normal breath sounds, no respiratory distress Cardiovascular/Chest: normal rate, regular rhythm, no JVD Abdomen: normal bowel sounds, non tender, soft Extremities: normal range of motion, non-tender 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, alert, oriented x 3 Last 24 Hour Vital Signs Date Time Temp Pulse Resp B/P (MAP) Pulse Ox O2 Delivery O2 Flow Rate FiO2 10/09/20 09:50 97.5 78 16 127/91 99 Room Air 10/09/20 07:20 97.5 82 17 136/90 98 Room Air 10/09/20 05:17 97.5 10/09/20 05:16 97 18 141/93 99 10/09/20 04:46 97 18 141/93 99 10/09/20 04:15 97 18 Room Air 10/09/20 03:51 97.5 97 18 141/93 (109) 99 Room Air Laboratory Tests Test 10/09/20 04:04 10/09/20 07:15 White Blood Count 14.4 K/UL (4.8-10.8) H Red Blood Count 5.08 M/UL (4.20-5.40) Hemoglobin 15.5 G/DL (12.0-16.0) Hematocrit 45.1 % (37.0-47.0) Mean Corpuscular Volume 89 FL (80-99) Mean Corpuscular Hemoglobin 30.5 PG (27.0-31.0) Mean Corpuscular Hemoglobin Concent 34.3 G/DL (32.0-36.0) Red Cell Distribution Width 11.8 % (11.6-14.8) Platelet Count 276 K/UL (150-450) Mean Platelet Volume 7.2 FL (6.5-10.1) Neutrophils (%) (Auto) 75.8 % (45.0-75.0) H Lymphocytes (%) (Auto) 18.0 % (20.0-45.0) L Monocytes (%) (Auto) 5.6 % (1.0-10.0) Eosinophils (%) (Auto) 0.0 % (0.0-3.0) Basophils (%) (Auto) 0.6 % (0.0-2.0) Sodium Level 142 MMOL/L (136-145) Potassium Level 3.8 MMOL/L (3.5-5.1) Chloride Level 105 MMOL/L (98-107) Carbon Dioxide Level 21 MMOL/L (21-32) Anion Gap 16 mmol/L (5-15) H Blood Urea Nitrogen 10 mg/dL (7-18) Creatinine 1.2 MG/DL (0.55-1.30) Estimat Glomerular Filtration Rate 51.7 mL/min (>60) Glucose Level 166 MG/DL (74-106) H Calcium Level 9.4 MG/DL (8.5-10.1) Total Bilirubin 0.5 MG/DL (0.2-1.0) Aspartate Amino Transf (AST/SGOT) 25 U/L (15-37) Alanine Aminotransferase (ALT/SGPT) 19 U/L (12-78) Alkaline Phosphatase 60 U/L (46-116) Total Protein 8.4 G/DL (6.4-8.2) H Albumin 4.6 G/DL (3.4-5.0) Globulin 3.8 g/dL Albumin/Globulin Ratio 1.2 (1.0-2.7) Lipase 108 U/L (73-393) Urine Color Yellow Urine Appearance Clear Urine pH 6.5 (4.5-8.0) Urine Specific Alpha 1.015 (1.005-1.035) Urine Protein 2+ (NEGATIVE) H Urine Glucose (UA) Negative (NEGATIVE) Urine Ketones 4+ (NEGATIVE) H Urine Blood 3+ (NEGATIVE) H Urine Nitrite Negative (NEGATIVE) Urine Bilirubin Negative (NEGATIVE) Urine Urobilinogen Normal MG/DL (0.0-1.0) Urine Leukocyte Esterase Negative (NEGATIVE) Urine RBC 2-4 /HPF (0 - 2) H Urine WBC 0-2 /HPF (0 - 2) Urine Squamous Epithelial Cells Few /LPF (NONE/OCC) Urine Bacteria Few /HPF (NONE) Urine Mucus Moderate /LPF (NONE/OCC) H Urine HCG, Qualitative Negative (NEGATIVE) Height (Feet): 5 Height (Inches): 8.00 Weight (Pounds): 155 Medications Current Medications Medications (Trade) Dose Ordered Sig/Shanta Route PRN Reason Start Time Stop Time Status Last Admin Dose Admin Acetaminophen (Tylenol) 650 mg Q4H PRN ORAL Mild Pain (Pain Scale 1-3) 10/09/20 12:00 11/08/20 11:59 Acetaminophen (Tylenol) 650 mg Q4H PRN ORAL Temp >100.5 10/09/20 12:00 11/08/20 11:59 Al Hydroxide/Mg Hydroxide (Mylanta II) 30 ml Q6H PRN ORAL dyspepsia 10/09/20 12:00 11/08/20 11:59 Albuterol/ Ipratropium (Albuterol/ Ipratropium) 3 ml Q4HR PRN HHN Shortness of Breath 10/09/20 12:00 10/14/20 11:59 Dextrose (Dextrose 50%) 25 ml Q30M PRN IV Hypoglycemia 10/09/20 12:00 01/07/21 11:59 Dextrose (Dextrose 50%) 50 ml Q30M PRN IV Hypoglycemia 10/09/20 12:00 01/07/21 11:59 Enoxaparin Sodium (Lovenox) 40 mg Q24H SUBQ 10/09/20 13:00 01/07/21 12:59 Lactated Ringer's 1,000 ml @ 125 mls/hr Q8H IV 10/09/20 12:00 11/08/20 11:59 Lorazepam (Ativan 2mg/ml 1ml) 1 mg DAILY PRN IV For Anxiety 10/09/20 12:15 10/16/20 12:14 UNV Magnesium Hydroxide (Mom) 30 ml HSPRN PRN ORAL Constipation 10/09/20 12:00 11/08/20 11:59 Morphine Sulfate (Morphine Sulfate) 2 mg Q6HR PRN IVP Severe Breakthru Pain (>7) 10/09/20 12:15 10/16/20 12:14 UNV Ondansetron HCl (Zofran) 4 mg Q6H PRN IVP Nausea & Vomiting 10/09/20 12:00 11/08/20 11:59 Prochlorperazine (Compazine) 10 mg Q6H PRN IVP Nausea & Vomiting 10/09/20 12:00 11/08/20 11:59 Assessment/Plan Assessment/Plan: Mrs. Morgan is a 35 year old female with PMH marijuana usage, cannabinoid hyperemesis, anxiety who presented w/intractable nausea and vomiting. A: # Intractable Nausea/vomiting likely 2/2 Cannabis use # Cannabinoid Hyperemesis Syndrome # Chronic Marijuana Dependence # Abdominal pain likely 2/2 Vomiting # Leukocytosis likely reactive # Hyperglycemia P: - hemodynamically stable - IVF - Zofran, compazine prn for nausea/vomiting - Ativan prn anxiety - liquid diet, advance as tolerated - UA negative for UTI - f/u utox - f/u a1c - discussion with patient regarding cessation of tobacco use, which she says she is trying to cut down. Will have SW see her - SW for polysubstance abuse counseling CODE: Full DVT: Lovenox Fluids: LR 100 GI: none Diet: clears, advance as tolerated Dispo: possible discharge home tomorrow Isaiah Beckwith D.O Oct 09, 2020 12:37
[2020-10-09] MEDS: Enoxaparin 40mg Inj SUBQ SCH (14:20)
--- NOTE | 2020-10-09 15:30 | NUR ---
NURSE NOTES: Per , ok to place IV in patient's foot.
[2020-10-09 16:00] VITALS: BP 144/79
[2020-10-09] MEDS: LR 1000ml 1,000 ML IV SCH ×2 (16:59→20:14)
--- NOTE | 2020-10-09 19:30 | NUR ---
NURSE NOTES: Received report & pt from DENNIS Arevalo. Pt in bed, a&ox4, asleep, easily arousable to verbal stimuli, in room air. No s/s of acute distress & no c/o pain at this time. IV site intact with IVF running as ordered. Plan of care discussed.
[2020-10-09 23:33] VITALS: BP 140/72
--- NOTE | 2020-10-10 01:00 | NUR ---
NURSE NOTES: Pt asleep, breathing unlabored. In no acute distress at this time.
--- NOTE | 2020-10-10 01:45 | NUR ---
NURSE NOTES: Pt awake. Per pt, no nausea & vomiting so far.
[2020-10-10 04:00] VITALS: BP 146/94
[2020-10-10] MEDS: LR 1000ml 1,000 ML IV SCH ×3 (04:06→19:57)
[2020-10-10 06:19] LABS: BASOPHILS % (AUTO) 0.5 % (0.0-2.0); HEMATOCRIT 40.8 % (37.0-47.0); HEMOGLOBIN 13.6 G/DL (12.0-16.0); LYMPHOCYTES % (AUTO) 20.3 % (20.0-45.0); MEAN CORPUSCULAR VOLUME 89 FL (80-99); MONOCYTES % (AUTO) 7.6 % (1.0-10.0); NEUTROPHILS % (AUTO) 71.6 % (45.0-75.0); PLATELET COUNT 241 K/UL (150-450); RED BLOOD COUNT 4.56 M/UL (4.20-5.40); RED CELL DISTRIBUTION WIDTH 11.8 % (11.6-14.8); WHITE BLOOD COUNT 11.5 K/UL (4.8-10.8)
--- NOTE | 2020-10-10 06:27 | NUR ---
NURSE NOTES: Pt had 230 ml of clear emesis. Zofran administered.
[2020-10-10 06:30] LABS: BLOOD UREA NITROGEN 13 mg/dL (7-18); CARBON DIOXIDE 28 MMOL/L (21-32); CHLORIDE 106 MMOL/L (98-107); CREATININE 0.9 MG/DL (0.55-1.30); POTASSIUM 3.1 MMOL/L (3.5-5.1); SODIUM 143 MMOL/L (136-145)
--- NOTE | 2020-10-10 06:38 | NUR ---
NURSE HAND-OFF: Important Events on Shift: emesis 230 ml, zofran x 1 Patient Status: stable Diet: Clear liquid diet Pending Orders: none Pending Results/Labs:none Pending MD notification: K 3.1 Latest Vital Signs: Temperature 98.1 , Pulse 87 , B/P 146 /94 , Respiratory Rate 16 , O2 SAT 98 , Room Air, O2 Flow Rate . Vital Sign Comment: none Latest Shaw Fall Score: 35 Fall Risk: Medium Risk Safety Measures: Call light Within Reach, Bed Alarm , Side Rails Side Rails x2, Bed position Low and Locked. Fall Precautions: Patient Fall Education Report given to . Addendum: 10/10/20 at 0721 by Davina Caldwell RN Report given to Tonya RN & Onofre RN. Endorsed to AM to f/u with re: Amira 3.1
--- NOTE | 2020-10-10 07:43 | NUR ---
NURSE NOTES: Received report from Davina COLLINS. Patient is alert and oriented x4. Patient still feels nauseated and demanded ice chips, so it was given to patient. IV site is intact and IVF is running per order. Bed low and locked. Call light is within reach. Will continue to monitor. Addendum: 10/10/20 at 0748 by Onofre Stephenson RN Patient denies pain at this time.
[2020-10-10 08:00] VITALS: BP 171/96
--- NOTE | 2020-10-10 09:17 | General Progress Note ---
Subjective Constitutional: Denies: no symptoms, chills, diaphoresis, fever, malaise, weakness, other HEENT: Denies: no symptoms, eye pain, blurred vision, tearing, double vision, ear pain, ear discharge, nose pain, nose congestion, throat pain, throat swelling, mouth pain, mouth swelling, other Cardiovascular: Denies: no symptoms, chest pain, edema, irregular heart rate, lightheadedness, palpitations, syncope, other Respiratory: Denies: no symptoms, cough, orthopnea, shortness of breath, SOB with excertion, SOB at rest, sputum, stridor, wheezing, other Gastrointestinal/Abdominal: Reports: nausea, vomiting; Denies: no symptoms, abdomen distended, abdominal pain, black stools, tarry stools, blood in stool, constipated, diarrhea, difficulty swallowing, poor appetite, poor fluid intake, rectal bleeding, other Genitourinary: Denies: no symptoms, burning, discharge, frequency, flank pain, hematuria, incontinence, pain, urgency, other Neurologic/Psychiatric: Denies: no symptoms, anxiety, depressed, emotional problems, headache, numbness, paresthesia, pre-existing deficit, seizure, tingling, tremors, weakness, other Endocrine: Denies: no symptoms, excessive sweating, flushing, intolerance to cold, intolerance to heat, increased hunger, increased thirst, increased urine, unexplained weight gain, unexplained weight loss, other Hematologic/Lymphatic: Denies: no symptoms, anemia, easy bleeding, easy b ruising, other Allergies: Coded Allergies: SULFA (SULFONAMIDE ANTIBIOTICS) (Verified Allergy, Unknown, 02/23/11) Subjective No acute events overnight. Patient still with extreme nausea and vomiting. Unable to keep down any of the liquid diet that was started yesterday. Morning still having nausea and vomiting. Like to increase the Ativan to twice daily. Abdominal pain has improved. Denies any other symptoms. Objective Last 24 Hour Vital Signs Date Time Temp Pulse Resp B/P (MAP) Pulse Ox O2 Delivery O2 Flow Rate FiO2 10/10/20 04:00 98.1 87 16 146/94 (111) 98 10/09/20 23:33 98.0 79 16 140/72 (94) 99 10/09/20 20:38 Room Air 10/09/20 17:19 81 20 144/79 98 10/09/20 16:49 70 20 150/86 98 10/09/20 16:00 98.3 81 20 144/79 (100) 99 10/09/20 13:53 Room Air 10/09/20 11:45 98.6 70 20 150/86 (107) 98 10/09/20 11:45 Room Air 10/09/20 11:40 97.5 72 18 124/86 98 Room Air 10/09/20 09:50 97.5 78 16 127/91 99 Room Air Intake and Output 10/09/20 10/10/20 19:00 07:00 Intake Total 150 ml 1600 ml Output Total 250 ml 230 ml Balance -100 ml 1370 ml Intake Oral 150 ml 100 ml IV Total 1500 ml Output Emesis 250 ml 230 ml # Voids 4 3 Laboratory Tests 10/09/20 17:14: Urine Opiates Screen Negative, Urine Barbiturates Screen Negative, Phencyclidine (PCP) Screen Negative, Urine Amphetamines Screen Negative, Urine Benzodiazepines Screen Negative, Urine Cocaine Screen Negative, Urine Marijuana (THC) Screen PositiveH 10/10/20 05:15: White Blood Count 11.5H, Red Blood Count 4.56, Hemoglobin 13.6, Hematocrit 40.8, Mean Corpuscular Volume 89, Mean Corpuscular Hemoglobin 29.8, Mean Corpuscular Hemoglobin Concent 33.3, Red Cell Distribution Width 11.8, Platelet Count 241, Mean Platelet Volume 6.9, Neutrophils (%) (Auto) 71.6, Lymphocytes (%) (Auto) 20.3, Monocytes (%) (Auto) 7.6, Eosinophils (%) (Auto) 0.0, Basophils (%) (Auto) 0.5, Sodium Level 143, Potassium Level 3.1L, Chloride Level 106, Carbon Dioxide Level 28, Blood Urea Nitrogen 13, Creatinine 0.9, Estimat Glomerular Filtration Rate > 60, Glucose Level 106, Hemoglobin A1c 6.4H, Calcium Level 9.0, Magnesium Level 2.3 Height (Feet): 5 Height (Inches): 8.00 Weight (Pounds): 155 General Appearance: alert, mild distress, alert oriented x3 EENT: PERRL/EOMI, normal ENT inspection Neck: non-tender, normal alignment Cardiovascular: normal rate, regular rhythm, no JVD Respiratory/Chest: lungs clear, normal breath sounds, no respiratory distress Abdomen: normal bowel sounds, non tender, soft Extremities: normal range of motion, non-tender Edema: no edema noted Arm (L), no edema noted Arm (R), no edema noted Leg (L), no edema noted Leg (R), no edema noted Pedal (L), no edema noted Pedal (R), no edema noted Generalized 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 Morgan is a 35 year old female with PMH marijuana usage, cannabinoid hyperemesis, anxiety who presented w/intractable nausea and vomiting. A: # Intractable Nausea/vomiting likely 2/2 Cannabis use # Cannabinoid Hyperemesis Syndrome # Chronic Marijuana Dependence # Abdominal pain likely 2/2 Vomiting # Leukocytosis likely reactive # Hyperglycemia # Prediabetes P: - hemodynamically stable - IVF - Zofran, compazine prn for nausea/vomiting - Ativan prn anxiety - liquid diet, advance as tolerated > still having nausea and vomiting - Drug testing positive for marijuana use Replete electrolytes - f/u a1c > 6.4, prediabetes, unlikely gastroparesis - discussion with patient regarding cessation of tobacco use, which she says she is trying to cut down. Will have SW see her - SW for polysubstance abuse counseling We will have psychiatry see patient if patient continues to request further Ativan CODE: Full DVT: Lovenox Fluids: LR 125 GI: none Diet: clears, advance as tolerated Dispo: possible discharge home tomorrow if patient is able to tolerate a diet with improvement of nausea vomiting Time spent on this encounter was 31 minutes which included 19 minutes of counseling and care coordination. I discussed with the nurse at bedside. Time of note may not reflect time patient was seen. Isaiah Beckwith D.O Oct 10, 2020 09:17
--- NOTE | 2020-10-10 09:56 | NUR ---
NURSE NOTES: Discontinued both IV in her left arm and left foot. Inserted new IV on left foot. Patient vomited couple times this morning, and compazine was given. Patient verbalized compazine seems working for her. No vomit after it was given.
--- NOTE | 2020-10-10 10:34 | NUR ---
NURSE NOTES: Notified regarding systolic blood pressure in 170s. Per MD, he will place an order. Patient is asymptomatic, calm, and denies headache.
[2020-10-10] MEDS: Lisinopril 20mg tab ORAL SCH (11:33)
--- NOTE | 2020-10-10 12:45 | NUR ---
Social Work This SW received a consult due to substance abuse. This SW met with patient who remains alert, independent and making her own decisions. Patient lives with her boyfriend, who patient explains can support her at home, as needed. 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 Patient denied any substance abuse or mental health concerns at this time. Patient stating she smokes marijuana, but does not plan to quit this substance at this time. No other needs or concerns present at this time.
[2020-10-10] MEDS: Enoxaparin 40mg Inj SUBQ SCH (12:55)
[2020-10-10 13:00] VITALS: BP 136/85
--- NOTE | 2020-10-10 13:49 | NUR ---
CASE MANAGEMENT:INITIAL REVIEW 35 YR OLD FEMALE PRESENTED TO ED FROM HOME CC;VOMITING SI;CYCLIC VOMITING. ABDOMINAL PAIN. 97.5 97 29 252/93 98% ON RA WBC 14.4 BG 166 UA+ PROTEIN, KETONES, BLOOD, RBC, MUCUS URINE TOX (+) THC IS;ZOFRAN IV DILAUDID IV INF NS BOLUS ATIVAN IV HALDOL IM BENADRYL IV REGLAN IV PHENERGAN IM ADMITTED TO MED SURG 10/09/20 @ 2027 MED SURG STATUS DCP;FROM HOME
[2020-10-10] MEDS: LORazepam Inj 2mg/ml 1ml IV PRN (14:28)
--- NOTE | 2020-10-10 14:51 | NUR ---
NURSE NOTES: Patient said she feels nauseated again and zofran was given IV. Patient was shaking from anxiety and ativan was given.
[2020-10-10 16:00] VITALS: BP 136/82
--- NOTE | 2020-10-10 19:27 | NUR ---
NURSE HAND-OFF: Important Events on Shift: Patient continues to have emesis Patient Status: Stable Diet: Clear liquid Pending Orders: N/A Pending Results/Labs:N/A Pending MD notification:N/A Latest Vital Signs: Temperature 98.5 , Pulse 83 , B/P 136 /82 , Respiratory Rate 15 , O2 SAT 97 , Room Air, O2 Flow Rate . Vital Sign Comment: VS stable Latest Shaw Fall Score: 35 Fall Risk: Medium Risk Safety Measures: Call light Within Reach, Bed Alarm , Side Rails Side Rails x2, Bed position Low and Locked. Fall Precautions: Patient Fall Education Report given to Leigh COLLINS.
--- NOTE | 2020-10-10 19:30 | NUR ---
NURSE NOTES: Received report from vanessa worthy. patient on bed, awake and verbally responsive. on room air, no sob. denies any pain at the moment. per zaynab, "episodes of n/v x2 and was controlled by zofran and compazine". with complaints of nausea at the moment, ice chips given. patient made aware of the next dose of zofran, verbalized understanding. with iv line on the left foot running LR @ 125 ml/hr. reiterated to call and ask for assistance. call light and light button within easy reach. will continue plan of care.
[2020-10-10 20:00] VITALS: BP 145/70
[2020-10-11] VITALS (7 sets, daily range): BP systolic 133–178; BP diastolic 76–111
[2020-10-11] MEDS: LORazepam Inj 2mg/ml 1ml IV PRN (00:12)
--- NOTE | 2020-10-11 00:43 | NUR ---
NURSE NOTES: offered ice chips for c/o n/v. kept head of bed elevated. reiterated to patient on the next dose of zofran. patient wants to take ativan. given as ordered. charge nurse made aware
[2020-10-11] MEDS: LR 1000ml 1,000 ML IV SCH ×3 (03:29→21:05)
--- NOTE | 2020-10-11 03:29 | NUR ---
NURSE NOTES: patient vomited with clear emesis. offered ice chips. zofran given as ordered.
[2020-10-11 05:41] LABS: BASOPHILS % (AUTO) 0.9 % (0.0-2.0); EOSINOPHILS % (AUTO) 0.1 % (0.0-3.0); HEMATOCRIT 42.5 % (37.0-47.0); LYMPHOCYTES % (AUTO) 18.4 % (20.0-45.0); MEAN CORPUSCULAR VOLUME 90 FL (80-99); MONOCYTES % (AUTO) 5.3 % (1.0-10.0); NEUTROPHILS % (AUTO) 75.3 % (45.0-75.0); PLATELET COUNT 122 K/UL (150-450); WHITE BLOOD COUNT 12.7 K/UL (4.8-10.8)
--- NOTE | 2020-10-11 06:48 | NUR ---
NURSE HAND-OFF: Important Events on Shift: n/v x3 , controlled with zofran and ice chips Patient Status:stable Diet: clear liquid diet Pending Orders: Pending Results/Labs: Pending MD notification: Latest Vital Signs: Temperature 98.6 , Pulse 85 , B/P 138 /76 , Respiratory Rate 19 , O2 SAT 98 , Room Air, O2 Flow Rate . Vital Sign Comment: Latest Shaw Fall Score: 35 Fall Risk: Medium Risk Safety Measures: Call light Within Reach, Bed Alarm , Side Rails Side Rails x2, Bed position Low and Locked. Fall Precautions: Patient Fall Education
[2020-10-11 06:53] LABS: ANION GAP 13 mmol/L (5-15); BLOOD UREA NITROGEN 9 mg/dL (7-18); CALCIUM 8.8 MG/DL (8.5-10.1); CARBON DIOXIDE 22 MMOL/L (21-32); CHLORIDE 103 MMOL/L (98-107); CREATININE 0.8 MG/DL (0.55-1.30); POTASSIUM 3.2 MMOL/L (3.5-5.1); SODIUM 138 MMOL/L (136-145)
--- NOTE | 2020-10-11 07:27 | NUR ---
HAND-OFF: Report given to vanessa barahona.
--- NOTE | 2020-10-11 07:55 | NUR ---
NURSE NOTES: Received report from DENNIS Abraham. Pt a/o x4, in bed. Denies any pain at this time. Pt said "I vomited all night." Will be given antiemesis as MD ordered. Lt foot iV is patent at this time. Bed in lowest position, call light within reach. Will continue to monitor.
[2020-10-11] MEDS: Lisinopril 20mg tab ORAL SCH (08:44)
--- NOTE | 2020-10-11 09:48 | NUR ---
NURSE NOTES: Call Dr. Lopez office and left the message regarding potassium is 3.2 today.
[2020-10-11] MEDS: HydrALAZINE 25mg tab ORAL PRN ×2 (12:55→21:05)
[2020-10-11] MEDS: Enoxaparin 40mg Inj SUBQ SCH (12:56)
[2020-10-11] MEDS ORDERED: LR 1000ml ONE (13:54)
--- NOTE | 2020-10-11 14:08 | NUR ---
NURSE NOTES: BP is 178/111 after Hydralazine was given as MD ordered. NOtified to Dr. Harp.
--- NOTE | 2020-10-11 14:13 | General Progress Note ---
Subjective Date patient seen: Oct 11, 2020 ROS Limited/Unobtainable: No Constitutional: Denies: no symptoms, chills, diaphoresis, fever, malaise, weakness, other HEENT: Denies: no symptoms, eye pain, blurred vision, tearing, double vision, ear pain, ear discharge, nose pain, nose congestion, throat pain, throat swelling, mouth pain, mouth swelling, other Cardiovascular: Denies: no symptoms, chest pain, edema, irregular heart rate, lightheadedness, palpitations, syncope, other Respiratory: Denies: no symptoms, cough, orthopnea, shortness of breath, SOB with excertion, SOB at rest, sputum, stridor, wheezing, other Gastrointestinal/Abdominal: Reports: abdominal pain, nausea, poor fluid intake, vomiting; Denies: no symptoms, abdomen distended, black stools, tarry stools, blood in stool, constipated, diarrhea, difficulty swallowing, poor appetite, rectal bleeding, other Genitourinary: Denies: no symptoms, burning, discharge, frequency, flank pain, hematuria, incontinence, pain, urgency, other Neurologic/Psychiatric: Denies: no symptoms, anxiety, depressed, emotional problems, headache, numbness, paresthesia, pre-existing deficit, seizure, tingling, tremors, weakness, other Endocrine: Denies: no symptoms, excessive sweating, flushing, intolerance to cold, intolerance to heat, increased hunger, increased thirst, increased urine, unexplained weight gain, unexplained weight loss, other Hematologic/Lymphatic: Denies: no symptoms, anemia, easy bleeding, easy bruising, other Allergies: Coded Allergies: SULFA (SULFONAMIDE ANTIBIOTICS) (Verified Allergy, Unknown, 02/23/11) Subjective Interval events: nausea/vomiting overnight Patient still having nausea and vomiting. She reports not being able to keep down full quantity of clear liquid diet. She feels compazine helps her nausea more than zofran, though has not tried compazine more than once or twice a day. Objective Last 24 Hour Vital Signs Date Time Temp Pulse Resp B/P (MAP) Pulse Ox O2 Delivery O2 Flow Rate FiO2 10/11/20 12:55 170/101 10/11/20 12:00 97.5 80 19 170/101 (124) 98 10/11/20 09:00 Room Air 10/11/20 08:44 162/110 10/11/20 08:20 103 18 96 Room Air 21 10/11/20 08:00 97.9 94 19 162/110 (127) 95 10/11/20 04:00 98.6 85 19 138/76 (96) 98 10/11/20 00:42 85 20 155/85 98 10/11/20 00:12 87 20 159/89 99 10/11/20 00:00 98.1 89 20 155/76 (102) 99 10/10/20 21:00 Room Air 10/10/20 20:00 98.6 82 20 145/70 (95) 97 10/10/20 16:00 98.5 83 15 136/82 (100) 97 10/10/20 14:28 100 16 136/85 98 Intake and Output 10/10/20 10/11/20 19:00 07:00 Intake Total 1500 ml 325 ml Output Total 200 ml 450 ml Balance 1300 ml -125 ml Intake Oral 250 ml 200 ml IV Total 1250 ml 125 ml Output Emesis 200 ml 450 ml # Voids 4 3 Laboratory Tests 10/11/20 04:50: White Blood Count 12.7H, Red Blood Count 4.70, Hemoglobin 14.0, Hematocrit 42.5, Mean Corpuscular Volume 90, Mean Corpuscular Hemoglobin 29.8, Mean Corpuscular Hemoglobin Concent 33.1, Red Cell Distribution Width 12.0, Platelet Count 122L, Mean Platelet Volume 7.0, Neutrophils (%) (Auto) 75.3H, Lymphocytes (%) (Auto) 18.4L, Monocytes (%) (Auto) 5.3, Eosinophils (%) (Auto) 0.1, Basophils (%) (Auto) 0.9, Sodium Level 138, Potassium Level 3.2L, Chloride Level 103, Carbon Dioxide Level 22, Anion Gap 13, Blood Urea Nitrogen 9, Creatinine 0.8, Estimat Glomerular Filtration Rate > 60, Glucose Level 112H, Calcium Level 8.8, Magnesium Level 2.1 Height (Feet): 5 Height (Inches): 8.00 Weight (Pounds): 155 General Appearance: WD/WN, alert oriented x3 EENT: PERRL/EOMI, normal ENT inspection, pharynx normal Neck: normal alignment, supple Cardiovascular: normal peripheral pulses, regular rhythm, no gallop/murmur Respiratory/Chest: chest wall non-tender, lungs clear, normal breath sounds, no respiratory distress, no accessory muscle use Abdomen: soft, tender Extremities: normal range of motion, non-tender, normal inspection Edema: no edema noted Arm (L), no edema noted Arm (R), no edema noted Leg (L), no edema noted Leg (R), no edema noted 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 Encouraged patient to use compazine more frequently to help nausea. - Ativan prn anxiety - liquid diet, advance as tolerated > Tolerating very small amount of liquid diet, still has nausea and vomiting - Drug testing positive for marijuana use Replete electrolytes as needed - f/u a1c > 6.4, prediabetes, unlikely gastroparesis - discussion with patient regarding cessation of marijuana use, which she says she is trying to cut down. Will have SW see her - SW for polysubstance abuse counseling We will have psychiatry see patient if patient continues to request further Ativan CODE: Full DVT: Lovenox Fluids: LR 125 GI: none Diet: clears, advance as tolerated Dispo: possible discharge home tomorrow if patient is able to tolerate a diet with improvement of nausea vomiting Time spent on this encounter was 33 minutes which included 17 minutes of counseling and care coordination. I discussed with the nurse at bedside. Time of note may not reflect time patient was seen. Ricky Harp M.D. Oct 11, 2020 14:13
--- NOTE | 2020-10-11 14:19 | NUR ---
CASE MANAGEMENT:REVIEW SI;CYCLIC VOMITING SYNDROME. HTN. 98.6 94 19 178/111 96% ON RA WBC 12.7 K+ 3.2 IS;K-DUR PO ONCE HYDRALAZINE PO Q6 PRN ATIVAN IV BID PRN IVF LR @ 125 ML/HR COMPAZINE IV Q6 PRN MED SURG STATUS DCP;FROM HOME PLAN; CLEAR LIQUID DIET FOR NOW SLOW ADVANCE TOLERATED DC PLANNING TO HOME
--- NOTE | 2020-10-11 14:39 | NUR ---
INSURANCE ALL AVAILABLE CLINICALS AND REVIEWS FAXED TO [facility] P [phone] F [phone]
--- NOTE | 2020-10-11 18:46 | NUR ---
NURSE HAND-OFF: Important Events on Shift: Total emesis 300ml, Antiemesis given x3, PRN high BP med given x1 Patient Status: keep vomiting Diet: clear liquid Pending Orders: N/A Pending Results/Labs: N/A Pending MD notification: N/A Latest Vital Signs: Temperature 98.3 , Pulse 92 , B/P 133 /99 , Respiratory Rate 19 , O2 SAT 98 , Room Air, O2 Flow Rate . Vital Sign Comment: Latest Shaw Fall Score: 35 Fall Risk: Medium Risk Safety Measures: Call light Within Reach, Bed Alarm , Side Rails Side Rails x2, Bed position Low and Locked. Fall Precautions: Patient Fall Education Report given to DENNIS Khan.
--- NOTE | 2020-10-11 19:30 | NUR ---
NURSE NOTES: Received patient in no apparent distress. A&OX4. IV site patent and intact. Bed in lowest position. Call light within reach. Will continue to monitor.
[2020-10-12] VITALS (7 sets, daily range): BP systolic 146–168; BP diastolic 80–105
[2020-10-12] MEDS: LR 1000ml 1,000 ML IV SCH ×3 (04:16→23:00)
--- NOTE | 2020-10-12 07:47 | NUR ---
NURSE NOTES: Received report from DENNIS Khan. patient A&Ox4,able make needs known, Pt in RA with no apparent distress. IV site patent and intact. Bed in lowest position. Call light within reach. Will continue to monitor.
--- NOTE | 2020-10-12 07:50 | NUR ---
NURSE HAND-OFF: Important Events on Shift:Still nausea and vomiting, couldn't advance to regular diet Patient Status: Diet: Clear liquid Pending Orders: Pending Results/Labs: Pending MD notification: Latest Vital Signs: Temperature 98.3 , Pulse 104 , B/P 151 /103 , Respiratory Rate 19 , O2 SAT 97 , Room Air, O2 Flow Rate . Vital Sign Comment: Latest Shaw Fall Score: 35 Fall Risk: Medium Risk Safety Measures: Call light Within Reach, Bed Alarm Zone 1, Side Rails Side Rails x2, Bed position Low and Locked. Fall Precautions: Patient Fall Education Report given to Domenic COLLINS.
[2020-10-12] MEDS: Lisinopril 20mg tab ORAL SCH (09:30)
[2020-10-12] MEDS: HYDROcodone/Acetamin 5/325 tab ORAL PRN (11:16)
[2020-10-12] MEDS ORDERED: LO LOESTRIN FE1 EAC1 PO (12:19)
--- NOTE | 2020-10-12 13:31 | NUR ---
NURSE NOTES: Hold lovenox due to Plt count [address] Harp.
[2020-10-12 13:43] LABS: BASOPHILS % (AUTO) 0.4 % (0.0-2.0); HEMATOCRIT 42.3 % (37.0-47.0); HEMOGLOBIN 14.3 G/DL (12.0-16.0); LYMPHOCYTES % (AUTO) 18.4 % (20.0-45.0); MEAN CORPUSCULAR VOLUME 89 FL (80-99); MONOCYTES % (AUTO) 7.1 % (1.0-10.0); NEUTROPHILS % (AUTO) 74.1 % (45.0-75.0); PLATELET COUNT 242 K/UL (150-450); RED BLOOD COUNT 4.77 M/UL (4.20-5.40); RED CELL DISTRIBUTION WIDTH 11.5 % (11.6-14.8); WHITE BLOOD COUNT 14.5 K/UL (4.8-10.8)
--- NOTE | 2020-10-12 13:58 | NUR ---
CASE MANAGEMENT:REVIEW SI;CANNABINOID HYPEREMESIS SYNDROME. HTN. LEUKOCYTOSIS. 98.3 83 20 175/111 97% ON RA WBC 14.5 IS;NORCO PO Q6 PRN NORVASC PO QD LISINOPRIL PO QD IVF LR @ 100 ML/HR COMPAZINE IV Q6 MED SURG STATUS DCP;FROM HOME PLAN; CONTINUE CLEAR LIQUID DIET DUE TO PERSISTENT NAUSEA/VOMITING
--- NOTE | 2020-10-12 14:10 | NUR ---
NURSE NOTES: Platelet count back to normal, resume Lovenox order per Dr. Harp.
[2020-10-12 14:15] LABS: BLOOD UREA NITROGEN 8 mg/dL (7-18); CALCIUM 8.5 MG/DL (8.5-10.1); CARBON DIOXIDE 26 MMOL/L (21-32); CREATININE 0.7 MG/DL (0.55-1.30)
[2020-10-12 14:22] LABS: CHLORIDE 100 MMOL/L (98-107); POTASSIUM 2.8 MMOL/L (3.5-5.1); SODIUM 137 MMOL/L (136-145)
[2020-10-12 14:23] LABS: ANION GAP 11 mmol/L (5-15)
--- NOTE | 2020-10-12 14:51 | NUR ---
NURSE NOTES: Low Potassium level 2.8. Dr. Harp notified and received new order to give Potassium 60meq PO then in 6 hours, give another Potassium 60meq. Order read back. carried out
[2020-10-12] MEDS: Enoxaparin 40mg Inj SUBQ SCH (15:02)
--- NOTE | 2020-10-12 19:30 | NUR ---
NURSE NOTES: Received report from DENNIS Lawson. Rounds done, patient alert and oriented x 4, ambulating to bathroom without difficulty, no dizziness. IV site intact and patent, infusing LR in L foot. Bed in low position, locked, side rails up x2, call light within reach. Encouraged to call as needed. Will continue to monitor.
--- NOTE | 2020-10-12 20:07 | NUR ---
NURSE HAND-OFF: Important Events on Shift:[N/V, Low potassium, K dur 60 meqx2] Patient Status: [stable] Diet: [clear liquid] Pending Orders: [] Pending Results/Labs:[] Pending MD notification:[] Latest Vital Signs: Temperature 97.5 , Pulse 88 , B/P 148 /80 , Respiratory Rate 19 , O2 SAT 97 , Room Air, O2 Flow Rate . Vital Sign Comment: [stable] Latest Shaw Fall Score: 35 Fall Risk: Medium Risk Safety Measures: Call light Within Reach, Bed Alarm Zone 1, Side Rails Side Rails x2, Bed position Low and Locked. Fall Precautions: Patient Fall Education Report given to [DENNIS Bethea].
--- NOTE | 2020-10-12 20:33 | NUR ---
NURSE NOTES: Patient was given Zofran ODT, vomited it out, pharmacy was notified. Given Compazine IVP, will continue to monitor closely.
--- NOTE | 2020-10-12 23:00 | General Progress Note ---
Subjective Date patient seen: Oct 12, 2020 ROS Limited/Unobtainable: No Allergies: Coded Allergies: SULFA (SULFONAMIDE ANTIBIOTICS) (Verified Allergy, Unknown, 02/23/11) Subjective Constitutional: Denies: no symptoms, chills, diaphoresis, fever, malaise, weakness, other HEENT: Denies: no symptoms, eye pain, blurred vision, tearing, double vision, ear pain, ear discharge, nose pain, nose congestion, throat pain, throat swelling, mouth pain, mouth swelling, other Cardiovascular: Denies: no symptoms, chest pain, edema, irregular heart rate, lightheadedness, palpitations, syncope, other Respiratory: Denies: no symptoms, cough, orthopnea, shortness of breath, SOB with excertion, SOB at rest, sputum, stridor, wheezing, other Gastrointestinal/Abdominal: Reports: abdominal pain, nausea, poor fluid intake, vomiting; Denies: no symptoms, abdomen distended, black stools, tarry stools, blood in stool, constipated, diarrhea, difficulty swallowing, poor appetite, rectal bleeding, other Genitourinary: Denies: no symptoms, burning, discharge, frequency, flank pain, hematuria, incontinence, pain, urgency, other Neurologic/Psychiatric: Denies: no symptoms, anxiety, depressed, emotional problems, headache, numbness, paresthesia, pre-existing deficit, seizure, tingling, tremors, weakness, other Endocrine: Denies: no symptoms, excessive sweating, flushing, intolerance to cold, intolerance to heat, increased hunger, increased thirst, increased urine, unexplained weight gain, unexplained weight loss, other Hematologic/Lymphatic: Denies: no symptoms, anemia, easy bleeding, easy bruising, other Interval events: still having nausea/vomiting overnight Patient continues to have nausea and vomiting. Compazine helps a little, but not enough to help her keep clear liquid diet down. Also having some mild abdominal pain in setting of repeated vomiting. Objective Last 24 Hour Vital Signs Date Time Temp Pulse Resp B/P (MAP) Pulse Ox O2 Delivery O2 Flow Rate FiO2 10/12/20 16:00 97.5 88 19 148/80 (102) 97 10/12/20 12:00 97.8 76 19 152/84 (106) 97 10/12/20 11:46 97.3 10/12/20 11:00 76 152/84 10/12/20 09:30 168/105 10/12/20 09:00 Room Air 10/12/20 08:00 97.3 83 19 168/105 (126) 97 10/12/20 04:00 98.3 104 19 151/103 (119) 97 10/12/20 00:00 98.4 102 19 146/92 (110) 97 Intake and Output 10/11/20 10/12/20 19:00 07:00 Intake Total 1575 ml 1550 ml Output Total 300 ml 600 ml Balance 1275 ml 950 ml Intake Oral 200 ml 300 ml IV Total 1375 ml 1250 ml Output Emesis 300 ml 600 ml # Voids 3 4 Laboratory Tests 10/12/20 13:35: White Blood Count 14.5H, Red Blood Count 4.77, Hemoglobin 14.3, Hematocrit 42.3, Mean Corpuscular Volume 89, Mean Corpuscular Hemoglobin 30.0, Mean Corpuscular Hemoglobin Concent 33.9, Red Cell Distribution Width 11.5L, Platelet Count 242#, Mean Platelet Volume 7.4, Neutrophils (%) (Auto) 74.1, Lymphocytes (%) (Auto) 18.4L, Monocytes (%) (Auto) 7.1, Eosinophils (%) (Auto) 0.0, Basophils (%) (Auto) 0.4, Sodium Level 137, Potassium Level 2.8L, Chloride Level 100, Carbon Dioxide Level 26, Anion Gap 11, Blood Urea Nitrogen 8, Creatinine 0.7, Estimat Glomerular Filtration Rate > 60, Glucose Level 107H, Calcium Level 8.5 Height (Feet): 5 Height (Inches): 8.00 Weight (Pounds): 155 Objective General Appearance: WD/WN, NAD, alert oriented x3 EENT: PERRL/EOMI, normal ENT inspection, pharynx normal Neck: normal alignment, supple Cardiovascular: normal peripheral pulses, regular rhythm, no gallop/murmur Respiratory/Chest: chest wall non-tender, lungs clear, normal breath sounds, no respiratory distress, no accessory muscle use Abdomen: soft, mildly TTP in lower abdomen, no rebound Extremities: normal range of motion, non-tender, normal inspection Edema: no edema noted Arm (L), no edema noted Arm (R), no edema noted Leg (L), no edema noted Leg (R), no edema noted 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 Encouraged patient to use compazine more frequently to help nausea. - Ativan prn anxiety - [place] PRN for abdominal pain - liquid diet, advance as tolerated > Tolerating very small amount of liquid diet, still has nausea and vomiting - Drug testing positive for marijuana use Replete electrolytes as needed - f/u a1c > 6.4, prediabetes, unlikely gastroparesis - discussion with patient regarding cessation of marijuana use, which she says she is trying to cut down. Will have SW see her - SW for polysubstance abuse counseling We will have psychiatry see patient if patient continues to request further Ativan CODE: Full DVT: Lovenox Fluids: LR 100 GI: none Diet: clears, advance as tolerated Dispo: possible discharge home tomorrow if patient is able to tolerate a diet with improvement of nausea & vomiting Time spent on this encounter was 34 minutes which included 18 minutes of counseling and care coordination. I discussed with the nurse at bedside. Time of note may not reflect time patient was seen. Ricky Harp M.D. Oct 12, 2020 23:00
--- NOTE | 2020-10-13 01:25 | NUR ---
NURSE NOTES: Two IV sites placed by ICU nurseJadon. Will resume IVF shortly.
[2020-10-13 04:15] VITALS: BP 170/100
--- NOTE | 2020-10-13 04:16 | NUR ---
NURSE NOTES: Patient hasn't been able to sleep. Continues to vomit clear liquid. Patient feeling anxious, noted restlessness. Given Ativan as ordered. Will continue to monitor closely.
[2020-10-13] MEDS: LORazepam Inj 2mg/ml 1ml IV PRN ×2 (04:18→21:12)
[2020-10-13 04:45] VITALS: BP 126/72
--- NOTE | 2020-10-13 06:22 | NUR ---
NURSE HAND-OFF: Important Events on Shift: continued to vomit, mostly spitting up clear fluid, was given Compazine and Zofran IV throughout the night. Only able to rest some after given Ativan. Patient Status: fair Diet: clear Pending Orders: [] Pending Results/Labs:[] Pending MD notification:[] Latest Vital Signs: Temperature 98.0 , Pulse 72 , B/P 126 /72 , Respiratory Rate 18 , O2 SAT 96 , Room Air, O2 Flow Rate . Vital Sign Comment: [] Latest Shaw Fall Score: 35 Fall Risk: Medium Risk Safety Measures: Call light Within Reach, Bed Alarm Zone 1, Side Rails Side Rails x2, Bed position Low and Locked. Fall Precautions: Patient Fall Education
[2020-10-13 06:41] LABS: EOSINOPHILS % (AUTO) 0.1 % (0.0-3.0); HEMATOCRIT 46.5 % (37.0-47.0); HEMOGLOBIN 15.4 G/DL (12.0-16.0); LYMPHOCYTES % (AUTO) 18.3 % (20.0-45.0); MEAN CORPUSCULAR VOLUME 90 FL (80-99); MONOCYTES % (AUTO) 6.2 % (1.0-10.0); NEUTROPHILS % (AUTO) 74.5 % (45.0-75.0); PLATELET COUNT 220 K/UL (150-450); RED BLOOD COUNT 5.19 M/UL (4.20-5.40); RED CELL DISTRIBUTION WIDTH 11.7 % (11.6-14.8)
[2020-10-13 06:58] LABS: ANION GAP 10 mmol/L (5-15); BLOOD UREA NITROGEN 10 mg/dL (7-18); CALCIUM 8.9 MG/DL (8.5-10.1); CARBON DIOXIDE 25 MMOL/L (21-32); CHLORIDE 101 MMOL/L (98-107); CREATININE 0.9 MG/DL (0.55-1.30); POTASSIUM 3.4 MMOL/L (3.5-5.1); SODIUM 136 MMOL/L (136-145)
--- NOTE | 2020-10-13 07:08 | NUR ---
NURSE NOTES: Report given to DENNIS Dos Santos. Rounds done.
--- NOTE | 2020-10-13 07:40 | NUR ---
NURSE NOTES: Received report from Neema COLLINS, round made, pt awake a/o X4, breaths regular unlabored on RA , pt has IVF on the Rt foot 20G , intact patent asymptomatic, pt denies any pain at this time , c/o nausea will provide medication for nausea , bed in low locked position, side rails up x2 , call light with in reach , will continue to monitor
[2020-10-13 08:00] VITALS: BP 162/99
[2020-10-13] MEDS: Lisinopril 20mg tab ORAL SCH (08:59)
[2020-10-13] MEDS: Enoxaparin 40mg Inj SUBQ SCH (09:00)
[2020-10-13] MEDS: LR 1000ml 1,000 ML IV SCH ×2 (09:08→18:16)
--- NOTE | 2020-10-13 10:42 | General Progress Note ---
Subjective Allergies: Coded Allergies: SULFA (SULFONAMIDE ANTIBIOTICS) (Verified Allergy, Unknown, 02/23/11) Subjective Constitutional: Denies: no symptoms, chills, diaphoresis, fever, malaise, weakness, other HEENT: Denies: no symptoms, eye pain, blurred vision, tearing, double vision, ear pain, ear discharge, nose pain, nose congestion, throat pain, throat swelling, mouth pain, mouth swelling, other Cardiovascular: Denies: no symptoms, chest pain, edema, irregular heart rate, lightheadedness, palpitations, syncope, other Respiratory: Denies: no symptoms, cough, orthopnea, shortness of breath, SOB with excertion, SOB at rest, sputum, stridor, wheezing, other Gastrointestinal/Abdominal: Reports: nausea, poor fluid intake Denies: abdominal pain, abdomen distended, black stools, tarry stools, blood in stool, constipated, diarrhea, difficulty swallowing, poor appetite, rectal bleeding, other Genitourinary: Denies: no symptoms, burning, discharge, frequency, flank pain, hematuria, incontinence, pain, urgency, other Neurologic/Psychiatric: Denies: no symptoms, anxiety, depressed, emotional problems, headache, numbness, paresthesia, pre-existing deficit, seizure, tingling, tremors, weakness, other Endocrine: Denies: no symptoms, excessive sweating, flushing, intolerance to cold, intolerance to heat, increased hunger, increased thirst, increased urine, unexplained weight gain, unexplained weight loss, other Hematologic/Lymphatic: Denies: no symptoms, anemia, easy bleeding, easy bruising, other Interval events: no acute events overnight. Patient feeling slightly better today. No vomiting this morning, nausea slightly more controlled, able to keep more liquids down. Reports she started her period today. Objective Last 24 Hour Vital Signs Date Time Temp Pulse Resp B/P (MAP) Pulse Ox O2 Delivery O2 Flow Rate FiO2 10/13/20 08:59 162/99 10/13/20 08:58 103 162/99 10/13/20 08:00 98.9 103 18 162/99 (120) 97 10/13/20 04:48 72 18 126/72 96 10/13/20 04:45 72 18 126/72 (90) 96 10/13/20 04:18 96 19 170/100 99 10/13/20 04:15 98.0 96 19 170/100 (123) 99 10/12/20 23:50 98.0 82 18 155/98 (117) 99 10/12/20 21:00 Room Air 10/12/20 20:00 98.3 78 17 149/82 (104) 100 10/12/20 16:00 97.5 88 19 148/80 (102) 97 10/12/20 12:00 97.8 76 19 152/84 (106) 97 10/12/20 11:46 97.3 10/12/20 11:00 76 152/84 Intake and Output 10/12/20 10/13/20 19:00 07:00 Intake Total 600 ml 790 ml Output Total 200 ml 350 ml Balance 400 ml 440 ml Intake Oral 500 ml 440 ml IV Total 100 ml 350 ml Output Emesis 200 ml 350 ml # Voids 4 2 Laboratory Tests 10/12/20 13:35: White Blood Count 14.5H, Red Blood Count 4.77, Hemoglobin 14.3, Hematocrit 42.3, Mean Corpuscular Volume 89, Mean Corpuscular Hemoglobin 30.0, Mean Corpuscular Hemoglobin Concent 33.9, Red Cell Distribution Width 11.5L, Platelet Count 242#, Mean Platelet Volume 7.4, Neutrophils (%) (Auto) 74.1, Lymphocytes (%) (Auto) 18.4L, Monocytes (%) (Auto) 7.1, Eosinophils (%) (Auto) 0.0, Basophils (%) (Auto) 0.4, Sodium Level 137, Potassium Level 2.8L, Chloride Level 100, Carbon Dioxide Level 26, Anion Gap 11, Blood Urea Nitrogen 8, Creatinine 0.7, Estimat Glomerular Filtration Rate > 60, Glucose Level 107H, Calcium Level 8.5 10/13/20 05:35: White Blood Count 12.0H, Red Blood Count 5.19, Hemoglobin 15.4, Hematocrit 46.5, Mean Corpuscular Volume 90, Mean Corpuscular Hemoglobin 29.7, Mean Corpuscular Hemoglobin Concent 33.1, Red Cell Distribution Width 11.7, Platelet Count 220, Mean Platelet Volume 6.8, Neutrophils (%) (Auto) 74.5, Lymphocytes (%) (Auto) 18.3L, Monocytes (%) (Auto) 6.2, Eosinophils (%) (Auto) 0.1, Basophils (%) (Auto) 1.0, Sodium Level 136, Potassium Level 3.4L, Chloride Level 101, Carbon Dioxide Level 25, Anion Gap 10, Blood Urea Nitrogen 10, Creatinine 0.9, Estimat Glomerular Filtration Rate > 60, Glucose Level 107H, Calcium Level 8.9 Height (Feet): 5 Height (Inches): 8.00 Weight (Pounds): 155 Objective General Appearance: WD/WN, NAD, alert oriented x3, pleasant, conversant EENT: PERRL/EOMI, normal ENT inspection, pharynx normal Neck: normal alignment, supple Cardiovascular: normal peripheral pulses, regular rhythm, no gallop/murmur Respiratory/Chest: chest wall non-tender, lungs clear, normal breath sounds, no respiratory distress, no accessory muscle use Abdomen: soft, stable mild tenderness, no rebound Extremities: normal range of motion, non-tender, normal inspection Edema: no edema noted Arm (L), no edema noted Arm (R), no edema noted Leg (L), no edema noted Leg (R), no edema noted 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 Encouraged patient to use compazine more frequently to help nausea. - Ativan prn anxiety - [place] PRN for abdominal pain - liquid diet, advance as tolerated > Tolerating very small amount of liquid diet, still has nausea and vomiting - Drug testing positive for marijuana use Replete electrolytes as needed - f/u a1c > 6.4, prediabetes, unlikely gastroparesis - discussion with patient regarding cessation of marijuana use, which she says she is trying to cut down. Will have SW see her - SW for polysubstance abuse counseling We will have psychiatry see patient if patient continues to request further Ativan CODE: Full DVT: Lovenox Fluids: LR 100 GI: none Diet: clears, advance as tolerated Dispo: possible discharge home tomorrow if nausea continues to improve Time spent on this encounter was 32 minutes which included 17 minutes of counseling and care coordination. I discussed with the nurse at bedside. Time of note may not reflect time patient was seen. Ricky Harp M.D. Oct 13, 2020 10:42
[2020-10-13 12:00] VITALS: BP 146/85
--- NOTE | 2020-10-13 13:12 | NUR ---
INSURANCE CLINICALS/REVIEW FAXED TO [facility] [phone]
--- NOTE | 2020-10-13 15:52 | NUR ---
CASE MANAGEMENT:REVIEW SI;HYPEREMESIS SYNDROME. HTN. LEUKOCYTOSIS. 98.9 103 18 162/99 96% ON RA WBC 12.0 K+ 3.4 IS;K-DUR PO LOVENOX SUBQ QD NORVASC PO QD IVF LR @ 100 ML/HR COMPAZINE IV Q6 PRN ZOFRAN IV Q6 PRN MED SURG STATUS DCP;FROM HOME PLAN; CONTINUE ANTIEMETICS CONTINUE CLEAR DIET UNTIL N/V RESOLVE
[2020-10-13 16:00] VITALS: BP 147/97
[2020-10-13] MEDS ORDERED: LR 1000ml ONE (16:34)
--- NOTE | 2020-10-13 19:30 | NUR ---
NURSE HAND-OFF: Important Events on Shift: monitor Nausea /vomiting Patient Status: stable Diet: clear liquid Pending Orders: Pending Results/Labs: Pending MD notification: Latest Vital Signs: Temperature 97.9 , Pulse 108 , B/P 147 /97 , Respiratory Rate 19 , O2 SAT 97 , Room Air, O2 Flow Rate . Vital Sign Comment: Latest Shaw Fall Score: 35 Fall Risk: Medium Risk Safety Measures: Call light Within Reach, Bed Alarm Zone 1, Side Rails Side Rails x2, Bed position Low and Locked. Fall Precautions: Patient Fall Education Report given to Raheel RN .
--- NOTE | 2020-10-13 19:31 | NUR ---
NURSE NOTES: The patient is alert and oriented x4 and does not seem to be in any active distress at this time.The Resp is even and unlabored and she is on Room air very cooperative with her care. She is able to ambulate to the bathroom with a steady gait.She has a R-foot 22g IV line that is patent and asymptomatic running lactated ringers @ 100ml/hr.The bed in low and locked position , side rails up X2 and call light within reach, Will continue to monitor as indicated.
[2020-10-13 20:00] VITALS: BP 145/84
[2020-10-14] VITALS: BP 141/85
[2020-10-14 04:00] VITALS: BP 128/79
[2020-10-14] MEDS: LR 1000ml 1,000 ML IV SCH (04:22)
[2020-10-14] MEDS: HYDROcodone/Acetamin 5/325 tab ORAL PRN (04:24)
--- NOTE | 2020-10-14 05:05 | NUR ---
NURSE NOTES: The patient was very anxious with episodes of agitations and inability to relax also noted. A calm environment was provided but she was restless and irritable. She received her Ativan PRN as indicated for anxiety and she is able to sleep all night long. She complain also on feeling nervous and was given comparing and Zofran as indicated.
[2020-10-14 06:58] LABS: EOSINOPHILS % (AUTO) 0.3 % (0.0-3.0); HEMATOCRIT 44.9 % (37.0-47.0); HEMOGLOBIN 15.4 G/DL (12.0-16.0); LYMPHOCYTES % (AUTO) 22.7 % (20.0-45.0); MEAN CORPUSCULAR VOLUME 89 FL (80-99); MONOCYTES % (AUTO) 5.9 % (1.0-10.0); NEUTROPHILS % (AUTO) 70.1 % (45.0-75.0); PLATELET COUNT 235 K/UL (150-450); RED BLOOD COUNT 5.05 M/UL (4.20-5.40); RED CELL DISTRIBUTION WIDTH 11.5 % (11.6-14.8); WHITE BLOOD COUNT 10.4 K/UL (4.8-10.8)
--- NOTE | 2020-10-14 07:10 | NUR ---
NURSE HAND-OFF: Important Events on Shift:No evidence of N/V noted at this time Patient Status: Diet: Pending Orders: Pending Results/Labs: Pending MD notification: Latest Vital Signs: Temperature 97.4 , Pulse 94 , B/P 128 /79 , Respiratory Rate 18 , O2 SAT 97 , Room Air, O2 Flow Rate . Vital Sign Comment: Latest Shaw Fall Score: 35 Fall Risk: Medium Risk Safety Measures: Call light Within Reach, Bed Alarm Zone 1, Side Rails Side Rails x2, Bed position Low and Locked. Fall Precautions: Patient Fall Education Report given to .
[2020-10-14 07:22] LABS: ANION GAP 11 mmol/L (5-15); BLOOD UREA NITROGEN 8 mg/dL (7-18); CALCIUM 8.4 MG/DL (8.5-10.1); CARBON DIOXIDE 24 MMOL/L (21-32); CHLORIDE 102 MMOL/L (98-107); CREATININE 0.8 MG/DL (0.55-1.30); POTASSIUM 3.1 MMOL/L (3.5-5.1); SODIUM 137 MMOL/L (136-145)
[2020-10-14 08:00] VITALS: BP 133/95
[2020-10-14] MEDS: Lisinopril 20mg tab ORAL SCH (09:03)
[2020-10-14] MEDS: Enoxaparin 40mg Inj SUBQ SCH (09:05)
[2020-10-14 12:00] VITALS: BP 159/90
--- NOTE | 2020-10-14 12:27 | NUR ---
CASE MANAGEMENT:REVIEW SI;HYPEREMESIS SYNDROME. HTN. LEUKOCYTOSIS. 98.1 94 20 141/85 96% ON RA K+ 3.1 IS;K-DUR PO ONCE LOVENOX SUBQ QD NORVASC PO QD LISINOPRIL PO QD IVF LR @ 100 ML/HR COMPAZINE IV Q6 PRN MED SURG STATUS DCP;FROM HOME PLAN; ADVANCE DIET TOLERATED POSSIBLE DC LATER TODAY
[2020-10-14] MEDS ORDERED: COMPAZINE5 MG PO (12:36)
[2020-10-14] MEDS ORDERED: POTASSIUM CHLO20 ME1 ORAL (12:36)
[2020-10-14] MEDS ORDERED: ZOFRAN4 M3 ORAL (12:36)
--- NOTE | 2020-10-14 12:38 | Discharge Instructions ---
Discharge Instructions Discharge Instructions Follow up with: primary care physician in 1 week and have basic metabolic panel checked Call MD/Return to Hospital if: symptoms worsen or fail to improve Diet: regular Resume Normal Activity?: Yes Activity: resume normal activities Follow Up Orders Have a BMP test done by your primary care physician in 1 week to check your potassium level Special Instructions Continue taking the potassium supplement twice a day for the next three days. Maintain adequate fluid intake and maintain electrolyte intake (you can drink sports drinks like Gatorade or similar) For Congestive Heart Failure Reminder Report to your physician any weight gain of 5 pounds or more in one week. Ricky Harp M.D. Oct 14, 2020 12:38
--- NOTE | 2020-10-14 13:12 | NUR ---
NURSE NOTES: Pt discharged in stable , pt picked up by friend , all iv's discontinued , belongings taken with pt , escorted pt to front of ER
--- NOTE | 2020-10-18 14:34 | NUR ---
INSURANCE [employer]INICALS/ REVIEW FAXED TO [facility] [phone]
--- NOTE | 2020-10-18 17:49 | Discharge Summary ---
Discharge Summary Hospital Course Date of Admission Oct 09, 2020 at 11:38 Date of Discharge Oct 14, 2020 at 13:18 Admitting Diagnosis cyclic vomiting Reason for Hospitalization: cyclic vomiting HPI Kathy Morgan is a 35 year old female who was admitted on Oct 09, 2020 at 11:38 for Cyclic Vomiting with PMH of marijuana usage, cannabinoid hyperemesis, anxiety who presents w/intractable nausea and vomiting. Patient is well known to this facility for multiple episodes of intractable vomiting. Patient report her symptoms started this morning. She is unable to keep any food down and has associated generalized abdominal pain. She notes zofran works the best for her nausea. Although she says she uses less marijuana, she admits to continued use of it and smokes CBD. No fevers, chills, sob, cough, chest pain, diarrhea, constipations, or dysurai. No other recent illnesses, sick contracts or travels. No new medications. Hospital Course Patient was admitted and given IVF and antiemetics. She took several days to eventually tolerate clear liquid diet and finally was able to advance to soft diet. Upon discharge, she was given antiemetics and told to follow up with her PCP for recheck of her potassium. Time spent on this discharge was 33 minutes which included 18 minutes of counseling and care coordination. I discussed with the patient and nurse at bedside. Time of note may not reflect time patient was seen. Discharge Medications New Medications: Potassium Chloride* (K-Dur*) 20 Meq Tab.er.prt 20 MEQ ORAL TWICE A DAY for 3 Days, #6 TAB 0 Refills Prochlorperazine Maleate (Compazine) 5 Mg Tablet 5 MG PO TID PRN for 5 Days, #15 TAB Ondansetron* (Zofran*) 4 Mg Tablet 4 MG ORAL Q6H PRN, #20 TAB Discharge Condition Upon Discharge: improving Discharge Vital Signs Last Vital Signs Date Time Temp Pulse Resp B/P (MAP) Pulse Ox O2 Delivery O2 Flow Rate FiO2 10/14/20 12:00 97.9 110 20 159/90 (113) 98 10/14/20 09:00 Room Air 10/14/20 07:00 21 Exam on day of discharge General Appearance: WD/WN, NAD, alert oriented x3, pleasant, conversant EENT: PERRL/EOMI, normal ENT inspection, pharynx normal Neck: normal alignment, supple Cardiovascular: normal peripheral pulses, regular rhythm, no gallop/murmur Respiratory/Chest: chest wall non-tender, lungs clear, normal breath sounds, no respiratory distress, no accessory muscle use Abdomen: soft, no tenderness to palptation, no rebound Extremities: normal range of motion, non-tender, normal inspection Edema: no edema noted Arm (L), no edema noted Arm (R), no edema noted Leg (L), no edema noted Leg (R), no edema noted Neurologic: crester II-XII grossly normal, alert, oriented x 3, responsive, normal mood/affect Skin: normal pigmentation, warm/dry, no diaphoresis Discharge Disposition Patient was discharged to home Discharge Diagnoses: (1) Cyclic vomiting syndrome (2) Cannabis abuse (3) Abdominal pain (4) Hypokalemia Discharge Instructions Discharge Instructions Follow up with: primary care physician in 1 week and have basic metabolic panel checked Call MD/Return to Hospital if: symptoms worsen or fail to improve Activity: resume normal activities Ricky Harp M.D. Oct 18, 2020 17:49
== END 2020-10-14 13:18 | disposition home or self-care (01) | DRG 392 ==
LOC: EMR 04:18 → EDBEDREQ 11:20 → 3E 11:38
DX: R11.2 Nausea with vomiting, unspecified (principal); F12.288 Cannabis dependence with other cannabis-induced disorder; R73.9 Hyperglycemia, unspecified; I10 Essential (primary) hypertension; E87.6 Hypokalemia; Z88.2 Allergy status to sulfonamides; R73.03 Prediabetes
CPT/HCPCS: 36415; 80048; 80053; 80307; 81003; 81025; 83036; 83690; 83735; 85025; 94664; 96361; 96372; 96374; 96375; 96376; 99285; J2405; J2765; J7030; J8499

== ENCOUNTER 2020-10-29 06:20 | Inpatient (IN) | payer OTHER ==
[~2020-10-29] VITALS: Ht 170.2 cm; Wt 75.7 kg
[~2020-10-29 06:20] MED LIST changes: +COMPAZINE5 MG PO; +LO LOESTRIN FE1 EAC1 PO
[2020-10-29] MEDS ORDERED: HYDROmorphone 1mg/ml Carpuject IVP ONE (06:30)
[2020-10-29] MEDS ORDERED: LORazepam Inj 2mg/ml 1ml IV ONE ×2 (06:30→13:00)
--- NOTE | 2020-10-29 06:34 | Emergency Room Report ---
History of Present Illness General Chief Complaint: Vomiting Source: Patient Present Illness HPI Patient presents with vomiting and abdominal pain. Patient has a long history of cyclic vomiting syndrome. This episode began at midnight. She thinks she may have vomited up specks of blood without clots or coffee grounds. She denies any melena. She denies fevers or chills. There is no productive cough or sore throat. Pain is diffuse and nonradiating to her back. This is similar to how she is presented in the past she says. She tried to keep down nausea medication but was unable to. She has anxiety with this attack. Her last menstruation was a month ago. She is taking control. No sore throat, chest pain, palpitations, dysuria, shortness of breath, joint pain, rashes, dizziness, headache. The patient was last admitted October 09 and discharged October 14. 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 - 10/27/20 COVID-19 Screening: Negative COVID-19 COVID-19 Testing Source: urgent care Patient History Past Medical History: see triage record, old chart reviewed Social History: Reports: drug use - thc; Denies: smoking Social History Narrative from home Last Menstrual Period: september 2020 Reviewed Nursing Documentation: PMH: Agreed; PSxH: Agreed Nursing Documentation-PMH Past Medical History: No History, Except For Hx Cardiac Problems: No Hx Hypertension: No Hx Pacemaker: No Hx Asthma: Yes Hx COPD: No Hx Diabetes: No Hx Cancer: No Hx Gastrointestinal Problems: Yes - Abdominal pain, cyclic vomiting Hx Dialysis: No Hx Neurological Problems: No Hx Cerebrovascular Accident: No Hx Transient Ischemic Attacks: No Hx Dementia: No Hx Alzheimer's Disease: No Hx Parkinson's Disease: No Hx Meningitis: No Hx Encephalitis: No Hx Seizures: No Hx Epilepsy: No Hx Multiple Sclerosis: No Hx Cerebral Palsy: No Hx Amyotrophic Lat Sclerosis: No Hx Guillian-Columbia Syndrome: No Hx Paralysis: No Hx Peripheral Neuropathy: No Hx Spinal Cord Injury: No Hx Head Trauma: No Hx Traumatic Brain Injury: No Hx Memory Loss: No Hx Concentration Difficulty: No Hx Speech Problem: No Hx Tremors: No Hx Vertigo: No Hx Dizziness: No Hx Syncope: No Hx Headaches: No Hx Aphasia: No Hx Dysphasia: No Hx Numbness: No Hx Weakness: No Hx Fatigue: No Hx Neurologic Surgery: No Hx Brain Shunt: No Review of Systems All Other Systems: negative except mentioned in HPI Physical Exam Vital Signs Date Time Temp Pulse Resp B/P (MAP) Pulse Ox O2 Delivery O2 Flow Rate FiO2 10/29/20 06:22 97.5 121 16 185/109 (134) 95 Room Air Sp02 EP Interpretation: reviewed, normal General Appearance: mild distress Head: normocephalic Eyes: bilateral eye normal inspection, bilateral eye PERRL, bilateral eye EOMI ENT: moist mucus membranes Neck: supple Respiratory: normal inspection - Morning Cardiovascular #1: regular rate, rhythm Cardiovascular #2: 2+ radial (R) Gastrointestinal: normal inspection, non-distended, decreased bowel sounds Musculoskeletal: back normal, normal range of motion, gait/station normal Neurologic: alert, oriented x3, grossly normal Psychiatric: anxious Skin: no rash, warm/dry Medical Decision Making Diagnostic Impression: Primary Impression: Intractable nausea and vomiting Additional Impressions: Leukocytosis Qualified Codes: D72.828 - Other elevated white blood cell count Elevated lipase ER Course Patient with history of cyclic vomiting syndrome presents with vomiting and abdominal pain. Differential includes cyclic vomiting, gastritis Linda-Hurtado tear, gastroenteritis amongst others. Patient will be evaluated with labs. Patient placed on residential monitor. Patient treated with IV hydration, Zofran, Dilaudid and Ativan along with Pepcid. Improved but requests more Zofran. Ordered. 705 CXR clear. Elevated WBC and minimally elevated lipase. Abdomen soft but vomiting. Reglan and Benadryl given. 744 Multiple doses - Zofran, Phenergan, Reglan repeat - still vomiting. Admit hospital. Ativan and Dilaudid repeated with some improvement. Discussed with Dr. Harp. Laboratory Tests Test 10/29/20 06:35 10/29/20 11:34 White Blood Count 18.0 K/UL (4.8-10.8) H Red Blood Count 4.84 M/UL (4.20-5.40) Hemoglobin 14.7 G/DL (12.0-16.0) Hematocrit 41.3 % (37.0-47.0) Mean Corpuscular Volume 84 FL (80-99) Mean Corpuscular Hemoglobin 30.3 PG (27.0-31.0) Mean Corpuscular Hemoglobin Concent 36.2 G/DL (32.0-36.0) H Red Cell Distribution Width 13.6 % (11.6-14.8) Platelet Count 294 K/UL (150-450) Mean Platelet Volume 7.6 FL (6.5-10.1) Neutrophils (%) (Auto) % (45.0-75.0) Lymphocytes (%) (Auto) % (20.0-45.0) Monocytes (%) (Auto) % (1.0-10.0) Eosinophils (%) (Auto) % (0.0-3.0) Basophils (%) (Auto) % (0.0-2.0) Differential Total Cells Counted 100 Neutrophils % (Manual) 83 % (45-75) H Lymphocytes % (Manual) 12 % (20-45) L Monocytes % (Manual) 1 % (1-10) Eosinophils % (Manual) 2 % (0-3) Basophils % (Manual) 0 % (0-2) Band Neutrophils 2 % (0-8) Platelet Estimate Adequate Platelet Morphology Normal Red Blood Cell Morphology Normal Prothrombin Time 10.1 SEC (9.30-11.50) Prothrombin Time INR 0.9 (0.9-1.1) Activated Partial Thromboplast Time 25 SEC (23-33) Sodium Level 138 MMOL/L (136-145) Potassium Level 4.3 MMOL/L (3.5-5.1) Chloride Level 104 MMOL/L (98-107) Carbon Dioxide Level 21 MMOL/L (21-32) Anion Gap 13 mmol/L (5-15) Blood Urea Nitrogen 8 mg/dL (7-18) Creatinine 0.9 MG/DL (0.55-1.30) Estimated Glomerular Filtration Rate > 60 mL/min (>60) Glucose Level 172 MG/DL (74-106) H Calcium Level 9.0 MG/DL (8.5-10.1) Total Bilirubin 0.3 MG/DL (0.2-1.0) Aspartate Amino Transferase (AST) 36 U/L (15-37) Alanine Aminotransferase (ALT) 23 U/L (12-78) Alkaline Phosphatase 59 U/L (46-116) Total Protein 7.9 G/DL (6.4-8.2) Albumin 4.0 G/DL (3.4-5.0) Globulin 3.9 g/dL Albumin/Globulin Ratio 1.0 (1.0-2.7) Lipase 409 U/L (73-393) H Urine Color Pale yellow Urine Appearance Clear Urine pH 8 (4.5-8.0) Urine Specific [place] 1.010 (1.005-1.035) Urine Protein 1+ (NEGATIVE) H Urine Glucose (UA) 2+ (NEGATIVE) H Urine Ketones 4+ (NEGATIVE) H Urine Blood 2+ (NEGATIVE) H Urine Nitrite Negative (NEGATIVE) Urine Bilirubin Negative (NEGATIVE) Urine Urobilinogen Normal MG/DL (0.0-1.0) Urine Leukocyte Esterase Negative (NEGATIVE) Urine RBC Pending Urine WBC Pending Urine Squamous Epithelial Cells Pending Urine Bacteria Pending Urine HCG, Qualitative Negative (NEGATIVE) Rhythm Strip Diag. Results EP Interpretation: yes Rhythm: NSR, no PVC's, no ectopy Chest X-Ray Diagnostic Results Chest X-Ray Diagnostic Results : Chest X-Ray Ordered: Yes # of Views/Limited/Complete: 1 View Indication: Other EP Interpretation: Yes Interpretation: no consolidation, no effusion, no pneumothorax Impression: No acute disease Electronically Signed by: Electronically signed by Maxi Duffy MD Last Vital Signs Date Time Temp Pulse Resp B/P (MAP) Pulse Ox O2 Delivery O2 Flow Rate FiO2 10/29/20 16:00 98.4 102 16 168/109 (128) 99 10/29/20 13:39 Room Air Status: improved Disposition: ADMITTED INPATIENT Condition: Serious Referrals: Maxi Tavarez MD (PCP) Maxi Duffy MD Oct 29, 2020 06:34
[2020-10-29 06:38] VITALS: BP 178/103
--- NOTE | 2020-10-29 07:04 | Diagnostic Imaging Report ---
EXAM: XR Chest, 1 View CLINICAL HISTORY: VOMITING TECHNIQUE: Frontal view of the chest. COMPARISON: 07/01/2020. FINDINGS: Lungs: The lungs are well aerated. No consolidative change. Pleural space: No pleural effusion. No pneumothorax per Heart: Cardiomediastinal silhouette unremarkable. Mediastinum: See above. Bones/joints: The ribs are unremarkable. IMPRESSION: No active disease.
[2020-10-29 07:06] LABS: ANION GAP 13 mmol/L (5-15); BLOOD UREA NITROGEN 8 mg/dL (7-18); CARBON DIOXIDE 21 MMOL/L (21-32); CHLORIDE 104 MMOL/L (98-107); CREATININE 0.9 MG/DL (0.55-1.30); POTASSIUM 4.3 MMOL/L (3.5-5.1); SODIUM 138 MMOL/L (136-145)
[2020-10-29 07:11] LABS: ALANINE AMINOTRANSFERASE 23 U/L (12-78); ALKALINE PHOSPHATASE 59 U/L (46-116); ASPARTATE AMINO TRANSFERASE 36 U/L (15-37); BILIRUBIN,TOTAL 0.3 MG/DL (0.2-1.0)
[2020-10-29 07:17] LABS: HEMOGLOBIN 14.7 G/DL (12.0-16.0); MEAN CORPUSCULAR VOLUME 84 FL (80-99); PLATELET COUNT 294 K/UL (150-450); RED BLOOD COUNT 4.84 M/UL (4.20-5.40); RED CELL DISTRIBUTION WIDTH 13.6 % (11.6-14.8)
[2020-10-29 07:32] LABS: INR 0.9 (0.9-1.1)
[2020-10-29 07:36] LABS: HEMATOCRIT 41.3 % (37.0-47.0)
[2020-10-29] MEDS ORDERED: DiphenhydrAMINE 50mg/ml Inj IVP ONE (07:45)
[2020-10-29] MEDS ORDERED: Metoclopramide 10mg/2ml Inj IVP ONE ×2 (07:45→11:15)
[2020-10-29] MEDS ORDERED: Mylanta II UD 30ml ORAL ONE (09:15)
[2020-10-29 11:49] LABS: APPEARANCE,URINE CLEAR; BILIRUBIN, URINE NEGATIVE (NEGATIVE); COLOR,URINE PALE YELLOW; GLUCOSE, URINE (UA) 2+ (NEGATIVE); KETONES,URINE 4+ (NEGATIVE); LEUKOCYTE ESTERASE ,URINE NEGATIVE (NEGATIVE); NITRITE,URINE NEGATIVE (NEGATIVE); PH,URINE 8 (4.5-8.0); PROTEIN,URINE 1+ (NEGATIVE); UROBILINOGEN,URINE NORMAL MG/DL (0.0-1.0)
[2020-10-29] MEDS ORDERED: Hydromorphone 0.5mg/0.5ml inj IVP ONE (13:00)
[2020-10-29] MEDS ORDERED: Promethazine HCl 25 MG in NS 55 ML IVPB ONE (13:00)
[2020-10-29] MEDS ORDERED: LORazepam 0.5mg tab ORAL PRN ×2 (13:30→13:45)
[2020-10-29] MEDS ORDERED: Mylanta II UD 30ml ORAL PRN (13:30)
--- NOTE | 2020-10-29 13:33 | History and Physical ---
History of Present Illness General Date patient seen: Oct 29, 2020 Reason for Hospitalization: Vomiting Present Illness HPI 35 yo F with multiple hospitalizations for cyclic vomiting syndrome likely due to cannabis use again presents with acute intractable vomiting since midnight. She was recently hospitalized for similar episodes about 2 weeks ago. She reports associated abdominal pain. 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 Denies hematemesis, diarrhea. Continues to use marijuana. PMH: marijuana dependence, cannabinoid hyperemesis, anxiety Fx: no family medical history she is aware of Sx: no surgical history Soc: denies tobacco, alcohol use; frequent and chronic marijuana user Allergies: Coded Allergies: SULFA (SULFONAMIDE ANTIBIOTICS) (Verified Allergy, Unknown, 02/23/11) COVID-19 Screening Contact w/high risk pt: No Recent Travel to affected area: No Experienced COVID-19 symptoms?: No Medication History Scheduled Noreth A-Et Estra/Fe Fumarate (Lo Loestrin Fe 1-10 Tablet), 1 EACH PO DAILY, (Reported) Potassium Chloride* (K-Dur*), 20 MEQ ORAL TWICE A DAY Scheduled PRN Ondansetron* (Zofran*), 4 MG ORAL Q6H PRN Prochlorperazine Maleate (Compazine), 5 MG PO TID PRN Patient History History Provided By: Patient Healthcare decision maker Resuscitation status Advanced Directive on File Past Medical/Surgical History Past Medical/Surgical History: (1) Cyclic vomiting syndrome (2) Cannabinoid hyperemesis syndrome Family History Family History: Patient reports no known family medical history. Social History Social History: (1) Cannabis abuse Review of Systems Constitutional: Reports: malaise; Denies: chills, fever Eye: Denies: blurred vision, double vision ENT: Denies: nose congestion, throat pain, throat swelling Respiratory: Denies: cough, shortness of breath Cardiovascular: Denies: chest pain, edema, palpitations, syncope Gastrointestinal: Reports: abdominal pain, nausea, vomiting; Denies: constipation, diarrhea, melena, hematemesis Genitourinary: Denies: dysuria, frequency Musculoskeletal: Denies: joint pain, muscle pain Skin: Denies: rash, dryness Psychiatric: Denies: hallucinations Neurological: Denies: headache, numbness Endocrine: Denies: intolerance to temperature, increased urine Hematologic/Lymphatic: Denies: anemia, easy bleeding Physical Exam General Appearance: WD/WN, alert, moderate distress - nausea HEENT: normocephalic, atraumatic, anicteric, PERRL, EOMI Neck: non-tender, normal alignment, supple, normal inspection Respiratory/Chest: chest wall non-tender, lungs clear, normal breath sounds, no respiratory distress, no accessory muscle use Abdomen: soft, no organomegaly, guarding Extremities: normal range of motion, non-tender, normal inspection, no calf tenderness, no edema Skin Exam: normal pigmentation, warm/dry Neurologic: 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 assistant 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 grossly normal, alert, oriented x 3, responsive Musculoskeletal: normal muscle bulk, no effusion Last 24 Hour Vital Signs Date Time Temp Pulse Resp B/P (MAP) Pulse Ox O2 Delivery O2 Flow Rate FiO2 10/29/20 12:57 98 24 134/80 98 10/29/20 07:08 118 18 178/103 95 10/29/20 07:08 97.5 10/29/20 06:38 118 24 Room Air 10/29/20 06:38 97.5 118 18 178/103 95 Room Air 10/29/20 06:38 118 18 178/103 95 10/29/20 06:22 97.5 121 16 185/109 (134) 95 Room Air Laboratory Tests Test 10/29/20 06:35 10/29/20 11:34 White Blood Count 18.0 K/UL (4.8-10.8) H Red Blood Count 4.84 M/UL (4.20-5.40) Hemoglobin 14.7 G/DL (12.0-16.0) Hematocrit 41.3 % (37.0-47.0) Mean Corpuscular Volume 84 FL (80-99) Mean Corpuscular Hemoglobin 30.3 PG (27.0-31.0) Mean Corpuscular Hemoglobin Concent 36.2 G/DL (32.0-36.0) H Red Cell Distribution Width 13.6 % (11.6-14.8) Platelet Count 294 K/UL (150-450) Mean Platelet Volume 7.6 FL (6.5-10.1) Neutrophils (%) (Auto) % (45.0-75.0) Lymphocytes (%) (Auto) % (20.0-45.0) Monocytes (%) (Auto) % (1.0-10.0) Eosinophils (%) (Auto) % (0.0-3.0) Basophils (%) (Auto) % (0.0-2.0) Differential Total Cells Counted 100 Neutrophils % (Manual) 83 % (45-75) H Lymphocytes % (Manual) 12 % (20-45) L Monocytes % (Manual) 1 % (1-10) Eosinophils % (Manual) 2 % (0-3) Basophils % (Manual) 0 % (0-2) Band Neutrophils 2 % (0-8) Platelet Estimate Adequate Platelet Morphology Normal Red Blood Cell Morphology Normal Prothrombin Time 10.1 SEC (9.30-11.50) Prothromb Time International Ratio 0.9 (0.9-1.1) Activated Partial Thromboplast Time 25 SEC (23-33) Sodium Level 138 MMOL/L (136-145) Potassium Level 4.3 MMOL/L (3.5-5.1) Chloride Level 104 MMOL/L (98-107) Carbon Dioxide Level 21 MMOL/L (21-32) Anion Gap 13 mmol/L (5-15) Blood Urea Nitrogen 8 mg/dL (7-18) Creatinine 0.9 MG/DL (0.55-1.30) Estimat Glomerular Filtration Rate > 60 mL/min (>60) Glucose Level 172 MG/DL (74-106) H Calcium Level 9.0 MG/DL (8.5-10.1) Total Bilirubin 0.3 MG/DL (0.2-1.0) Aspartate Amino Transf (AST/SGOT) 36 U/L (15-37) Alanine Aminotransferase (ALT/SGPT) 23 U/L (12-78) Alkaline Phosphatase 59 U/L (46-116) Total Protein 7.9 G/DL (6.4-8.2) Albumin 4.0 G/DL (3.4-5.0) Globulin 3.9 g/dL Albumin/Globulin Ratio 1.0 (1.0-2.7) Lipase 409 U/L (73-393) H Urine Color Pale yellow Urine Appearance Clear Urine pH 8 (4.5-8.0) Urine Specific [place] 1.010 (1.005-1.035) Urine Protein 1+ (NEGATIVE) H Urine Glucose (UA) 2+ (NEGATIVE) H Urine Ketones 4+ (NEGATIVE) H Urine Blood 2+ (NEGATIVE) H Urine Nitrite Negative (NEGATIVE) Urine Bilirubin Negative (NEGATIVE) Urine Urobilinogen Normal MG/DL (0.0-1.0) Urine Leukocyte Esterase Negative (NEGATIVE) Urine RBC 0-2 /HPF (0 - 2) Urine WBC 0 /HPF (0 - 2) Urine Squamous Epithelial Cells Occasional /LPF Urine Bacteria None /HPF (NONE) Urine Mucus Occasional /LPF Urine HCG, Qualitative Negative (NEGATIVE) Height (Feet): 5 Height (Inches): 8.00 Weight (Pounds): 160 Medications Current Medications Medications (Trade) Dose Ordered Sig/Shanta Route PRN Reason Start Time Stop Time Status Last Admin Dose Admin Promethazine HCl 25 mg/Sodium Chloride 56 ml @ 112 mls/hr ONCE ONCE IVPB 10/29/20 13:00 10/29/20 13:29 10/29/20 12:56 Assessment/Plan Assessment/Plan: A: # Intractable Nausea/vomiting likely 2/2 Cannabis use # Cannabinoid Hyperemesis Syndrome # Chronic Marijuana Dependence # Abdominal pain likely 2/2 Vomiting # Leukocytosis, likely reactive # Hyperglycemia P: - hemodynamically stable - IVF - Zofran, compazine prn for nausea/vomiting - Ativan prn anxiety/nausea - liquid diet, advance as tolerated - Elevated WBC count likely reactive to vomiting - GI consult, Dr. Wood, recs appreciated - discussion with patient regarding cessation of marijuana. Will have SW see her - SW for polysubstance abuse counseling CODE: Full DVT: Heparin Fluids: D5 1/2 NS GI: none Diet: clears, advance as tolerated Dispo: discharge home tomorrow once tolerating oral diet and nausea under better control In addition to the usual care above I spent additional time reviewing records in the EMR and paper charts including physician documentation, nursing documentation, lab results, imaging and clinical documentation. Total time included was 34 min. Time spent on this encounter was 71 minutes which included 37 minutes of counseling and care coordination. I discussed with the nurse at bedside. Time of note may not reflect time patient was seen. Ricky Harp M.D. Oct 29, 2020 13:32
[2020-10-29 13:45] VITALS: BP 170/102
[2020-10-29] MEDS: D5 1/2NS 1,000 ML IV SCH (14:31)
[2020-10-29 16:00] VITALS: BP 168/109
[2020-10-29 19:57] VITALS: BP 152/106
[2020-10-29] MEDS: Heparin 5000 units/ml inj SUBQ SCH (20:49)
[2020-10-29 23:28] VITALS: BP_SYST 152; BP_SYST 187; BP_DIAS 106; BP_DIAS 119
--- NOTE | 2020-10-30 01:14 | Consultation ---
DATE OF CONSULTATION: 10/29/2020 GASTROENTEROLOGY CONSULTATION CHIEF COMPLAINT: I was asked to see this patient for evaluation of nausea and vomiting. HISTORY OF PRESENT ILLNESS: The patient is a 35-year-old white woman with multiple hospitalizations for cyclic nausea and vomiting syndrome secondary to cannabis use who comes into the hospital with a one-day history of intractable nausea and vomiting. She has had similar admission earlier two weeks ago. She has some mild abdominal pain, which has improved. She also notes that her vomiting has improved since she has been in the hospital. She denies diarrhea. PAST MEDICAL HISTORY: Marijuana dependence, cannabis hyperemesis syndrome, and anxiety disorder. FAMILY HISTORY: Noncontributory. SOCIAL HISTORY: smokes cigarettes and drinks alcohol. REVIEW OF SYSTEMS: The patient had an endoscopy done several years ago. Otherwise negative. ALLERGIES: Sulfa. PHYSICAL EXAMINATION: GENERAL: A well-developed, well-nourished white woman, seen in her room. HEENT: Normocephalic and atraumatic. Sclerae anicteric. Oropharynx clear. NECK: Supple. CHEST: Clear to auscultation. CARDIAC: Revealed regular rate. ABDOMEN: Soft. EXTREMITIES: Revealed no edema. LABORATORY DATA: Noted. ASSESSMENT: This patient presents with cannabis hyperemesis syndrome, which should resolve spontaneously with supportive measures. The patient was advised strongly to avoid future use of cannabis. In the meantime, she should be given antiemetics and oral diet can be advanced as tolerated. RECOMMENDATIONS: Per above discussion and per orders in the chart. Thank you for asking me to participate in the care of this patient. Monika Cheney M.D. DR: NAOMIE JOB#: [id number] CC: TERESA
[2020-10-30 04:25] VITALS: BP 161/100
[2020-10-30] MEDS: D5 1/2NS 1,000 ML IV SCH (05:03)
[2020-10-30 05:40] LABS: ANION GAP 10 mmol/L (5-15); BLOOD UREA NITROGEN 8 mg/dL (7-18); CALCIUM 9.1 MG/DL (8.5-10.1); CARBON DIOXIDE 25 MMOL/L (21-32); CHLORIDE 101 MMOL/L (98-107); CREATININE 0.8 MG/DL (0.55-1.30); POTASSIUM 3.1 MMOL/L (3.5-5.1); SODIUM 136 MMOL/L (136-145)
[2020-10-30 05:57] LABS: BASOPHILS % (AUTO) 0.4 % (0.0-2.0); EOSINOPHILS % (AUTO) 0.1 % (0.0-3.0); HEMATOCRIT 38.5 % (37.0-47.0); HEMOGLOBIN 13.9 G/DL (12.0-16.0); LYMPHOCYTES % (AUTO) 15.2 % (20.0-45.0); MEAN CORPUSCULAR VOLUME 82 FL (80-99); MONOCYTES % (AUTO) 5.2 % (1.0-10.0); NEUTROPHILS % (AUTO) 79.1 % (45.0-75.0); PLATELET COUNT 293 K/UL (150-450); RED BLOOD COUNT 4.68 M/UL (4.20-5.40); RED CELL DISTRIBUTION WIDTH 14.1 % (11.6-14.8)
[2020-10-30] MEDS ORDERED: D5 1/2NS 1000ml IV ONE (07:48)
[2020-10-30 08:00] VITALS: BP 169/109
[2020-10-30] MEDS: Heparin 5000 units/ml inj SUBQ SCH ×2 (09:09→21:17)
[2020-10-30] MEDS: D5 1/2NS w/KCl 20mEq 1,000 ML IV SCH ×2 (09:09→22:50)
--- NOTE | 2020-10-30 11:18 | General Progress Note ---
Subjective Date patient seen: Oct 30, 2020 ROS Limited/Unobtainable: No Allergies: Coded Allergies: SULFA (SULFONAMIDE ANTIBIOTICS) (Verified Allergy, Unknown, 02/23/11) Subjective Constitutional: Reports: malaise; Denies: chills, fever Eye: Denies: blurred vision, double vision ENT: Denies: nose congestion, throat pain, throat swelling Respiratory: Denies: cough, shortness of breath Cardiovascular: Denies: chest pain, edema, palpitations, syncope Gastrointestinal: Reports: improving abdominal pain, stable nausea, vomiting; Denies: constipation, diarrhea, melena, hematemesis Genitourinary: Denies: dysuria, frequency Musculoskeletal: Denies: joint pain, muscle pain Skin: Denies: rash, dryness Psychiatric: Denies: hallucinations Neurological: Denies: headache, numbness Endocrine: Denies: intolerance to temperature, increased urine Hematologic/Lymphatic: Denies: anemia, easy bleeding Interval events: no acute events overnight Today, patient reports improving abdominal pain. Overall, she feels slightly better today, but still have refractory nausea on current regimen and unable to tolerate any oral diet. Objective Last 24 Hour Vital Signs Date Time Temp Pulse Resp B/P (MAP) Pulse Ox O2 Delivery O2 Flow Rate FiO2 10/30/20 09:08 109 169/109 10/30/20 09:00 Room Air 10/30/20 08:00 97.9 109 18 169/109 (129) 96 10/30/20 04:25 98.3 18 161/100 (120) 96 10/29/20 23:28 98.1 117 20 187/119 (141) 97 10/29/20 21:00 Room Air 10/29/20 19:57 98.4 17 152/106 (121) 96 10/29/20 16:00 98.4 102 16 168/109 (128) 99 10/29/20 14:16 84 170/102 10/29/20 13:45 98.1 84 20 170/102 (124) 98 10/29/20 13:39 Room Air 10/29/20 13:27 98 24 134/80 98 10/29/20 13:26 97.5 10/29/20 13:15 97.5 118 24 134/80 98 Room Air 10/29/20 12:57 98 24 134/80 98 Intake and Output 10/29/20 10/30/20 19:00 07:00 Intake Total 300 ml 855 ml Output Total 150 ml 500 ml Balance 150 ml 355 ml Intake Oral 0 ml 780 ml IV Total 300 ml 75 ml Output Emesis 150 ml 500 ml # Voids 1 4 Laboratory Tests 10/29/20 11:34: Urine Color Pale yellow, Urine Appearance Clear, Urine pH 8, Urine Specific [place] 1.010, Urine Protein 1+H, Urine Glucose (UA) 2+H, Urine Ketones 4+H, Urine Blood 2+H, Urine Nitrite Negative, Urine Bilirubin Negative, Urine Urobilinogen Normal, Urine Leukocyte Esterase Negative, Urine RBC 0-2, Urine WBC 0, Urine Squamous Epithelial Cells Occasional, Urine Bacteria None, Urine Mucus Occasional, Urine HCG, Qualitative Negative 10/30/20 04:45: White Blood Count 13.0H, Red Blood Count 4.68, Hemoglobin 13.9, Hematocrit 38.5, Mean Corpuscular Volume 82, Mean Corpuscular Hemoglobin 29.8, Mean Corpuscular Hemoglobin Concent 36.2H, Red Cell Distribution Width 14.1, Platelet Count 293, Mean Platelet Volume 7.2, Neutrophils (%) (Auto) 79.1H, Lymphocytes (%) (Auto) 15.2L, Monocytes (%) (Auto) 5.2, Eosinophils (%) (Auto) 0.1, Basophils (%) (Auto) 0.4, Sodium Level 136, Potassium Level 3.1L, Chloride Level 101, Carbon Dioxide Level 25, Anion Gap 10, Blood Urea Nitrogen 8, Creatinine 0.8, Estimat Glomerular Filtration Rate > 60, Glucose Level 133H, Calcium Level 9.1 Height (Feet): 5 Height (Inches): 7.00 Weight (Pounds): 167 Objective General Appearance: WD/WN, alert, mild distress - nausea HEENT: normocephalic, atraumatic, anicteric, PERRL, EOMI Neck: non-tender, normal alignment, supple, normal inspection Respiratory/Chest: chest wall non-tender, lungs clear, normal breath sounds, no respiratory distress, no accessory muscle use Abdomen: soft, no organomegaly, mildly tender to palpation Extremities: normal range of motion, non-tender, normal inspection, no calf tenderness, no edema Skin Exam: normal pigmentation, warm/dry 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, alert, oriented x 3, responsive Musculoskeletal: normal muscle bulk, no effusion Assessment/Plan Assessment/Plan: A: # Intractable Nausea/vomiting likely 2/2 Cannabis use - stable # Cannabinoid Hyperemesis Syndrome # Chronic Marijuana Dependence # Abdominal pain likely 2/2 Vomiting - improving # Leukocytosis, likely reactive - improving # Hyperglycemia - likely reactive to stress P: - hemodynamically stable - IVF - Zofran changed to standing dose 4 mg q4 hours with compazine PRN for breakthrough nausea/vomiting - Ativan prn anxiety/nausea - liquid diet, advance as tolerated - Elevated WBC count likely reactive to vomiting - GI consult, Dr. Wood, recs appreciated - discussion with patient regarding cessation of marijuana. Will have SW see her - SW for polysubstance abuse counseling CODE: Full DVT: Heparin Fluids: D5 1/2 NS GI: none Diet: clears, advance as tolerated Dispo: discharge home tomorrow once tolerating oral diet and nausea under better control Time spent on this encounter was 37 minutes which included 21 minutes of counseling and care coordination. I discussed with the nurse at bedside. Time of note may not reflect time patient was seen. Ricky Harp M.D. Oct 30, 2020 11:18
[2020-10-30 12:00] VITALS: BP 154/107
--- NOTE | 2020-10-30 13:56 | General Progress Note ---
Subjective Allergies: Coded Allergies: SULFA (SULFONAMIDE ANTIBIOTICS) (Verified Allergy, Unknown, 02/23/11) Subjective feels better still with some nausea wants to stay on clears Objective Last 24 Hour Vital Signs Date Time Temp Pulse Resp B/P (MAP) Pulse Ox O2 Delivery O2 Flow Rate FiO2 10/30/20 12:00 97.6 108 18 154/107 (123) 97 10/30/20 09:08 109 169/109 10/30/20 09:00 Room Air 10/30/20 08:00 97.9 109 18 169/109 (129) 96 10/30/20 04:25 98.3 18 161/100 (120) 96 10/29/20 23:28 98.1 117 20 187/119 (141) 97 10/29/20 21:00 Room Air 10/29/20 19:57 98.4 17 152/106 (121) 96 10/29/20 16:00 98.4 102 16 168/109 (128) 99 10/29/20 14:16 84 170/102 Intake and Output 10/29/20 10/30/20 19:00 07:00 Intake Total 300 ml 855 ml Output Total 150 ml 500 ml Balance 150 ml 355 ml Intake Oral 0 ml 780 ml IV Total 300 ml 75 ml Output Emesis 150 ml 500 ml # Voids 1 4 Laboratory Tests 10/30/20 04:45: White Blood Count 13.0H, Red Blood Count 4.68, Hemoglobin 13.9, Hematocrit 38.5, Mean Corpuscular Volume 82, Mean Corpuscular Hemoglobin 29.8, Mean Corpuscular Hemoglobin Concent 36.2H, Red Cell Distribution Width 14.1, Platelet Count 293, Mean Platelet Volume 7.2, Neutrophils (%) (Auto) 79.1H, Lymphocytes (%) (Auto) 15.2L, Monocytes (%) (Auto) 5.2, Eosinophils (%) (Auto) 0.1, Basophils (%) (Auto) 0.4, Sodium Level 136, Potassium Level 3.1L, Chloride Level 101, Carbon Dioxide Level 25, Anion Gap 10, Blood Urea Nitrogen 8, Creatinine 0.8, Estimat Glomerular Filtration Rate > 60, Glucose Level 133H, Calcium Level 9.1 Height (Feet): 5 Height (Inches): 7.00 Weight (Pounds): 167 Objective NAD NCAT supple CTA RR Abd soft ND no edema Assessment/Plan Assessment/Plan: Assessment - N/V - cannabis hyperemesis syndrome Recommendations - clears - advance - d/c cannabis use Monika hCeney MD Oct 30, 2020 13:56
[2020-10-30 16:00] VITALS: BP 184/111
[2020-10-30] MEDS: HYDROcodone/Acetamin 5/325 tab ORAL PRN (17:37)
[2020-10-30 20:20] VITALS: BP 141/92
[2020-10-31] VITALS: BP 164/109
[2020-10-31 04:25] VITALS: BP 155/98
[2020-10-31] MEDS: HYDROcodone/Acetamin 5/325 tab ORAL PRN (05:03)
[2020-10-31 07:15] LABS: BASOPHILS % (AUTO) 0.6 % (0.0-2.0); EOSINOPHILS % (AUTO) 0.2 % (0.0-3.0); HEMATOCRIT 37.8 % (37.0-47.0); HEMOGLOBIN 13.5 G/DL (12.0-16.0); LYMPHOCYTES % (AUTO) 27.7 % (20.0-45.0); MEAN CORPUSCULAR VOLUME 84 FL (80-99); MONOCYTES % (AUTO) 5.4 % (1.0-10.0); PLATELET COUNT 271 K/UL (150-450); RED BLOOD COUNT 4.53 M/UL (4.20-5.40); RED CELL DISTRIBUTION WIDTH 13.5 % (11.6-14.8); WHITE BLOOD COUNT 9.9 K/UL (4.8-10.8)
[2020-10-31 07:18] LABS: ANION GAP 11 mmol/L (5-15); BLOOD UREA NITROGEN 6 mg/dL (7-18); CALCIUM 8.9 MG/DL (8.5-10.1); CARBON DIOXIDE 24 MMOL/L (21-32); CHLORIDE 101 MMOL/L (98-107); CREATININE 0.8 MG/DL (0.55-1.30); POTASSIUM 3.2 MMOL/L (3.5-5.1); SODIUM 136 MMOL/L (136-145)
[2020-10-31 08:50] VITALS: BP_SYST 169; BP_SYST 171; BP_DIAS 115; BP_DIAS 119
[2020-10-31] MEDS: Heparin 5000 units/ml inj SUBQ SCH (08:50)
[2020-10-31] MEDS: D5 1/2NS w/KCl 20mEq 1,000 ML IV SCH (09:26)
[2020-10-31] MEDS ORDERED: Lisinopril 10mg tab ORAL SCH (10:00)
--- NOTE | 2020-10-31 10:07 | General Progress Note ---
Subjective ROS Limited/Unobtainable: Yes Allergies: Coded Allergies: SULFA (SULFONAMIDE ANTIBIOTICS) (Verified Allergy, Unknown, 02/23/11) Objective Last 24 Hour Vital Signs Date Time Temp Pulse Resp B/P (MAP) Pulse Ox O2 Delivery O2 Flow Rate FiO2 10/31/20 09:25 102 171/119 10/31/20 08:51 102 171/119 10/31/20 08:50 102 18 171/119 (136) 10/31/20 08:50 97.5 100 18 169/115 (133) 10/31/20 07:28 Room Air 10/31/20 04:25 97.7 103 18 155/98 (117) 10/31/20 00:00 97.3 99 20 164/109 (127) 10/30/20 20:20 98.2 108 19 141/92 (108) 10/30/20 19:55 Room Air 10/30/20 16:00 97.7 138 20 184/111 (135) 97 10/30/20 12:00 97.6 108 18 154/107 (123) 97 Intake and Output 10/30/20 10/31/20 19:00 07:00 Intake Total 775 ml 780 ml Output Total 150 ml 300 ml Balance 625 ml 480 ml Intake Oral 200 ml 780 ml IV Total 575 ml Output Emesis 150 ml 300 ml # Voids 1 3 Laboratory Tests 10/31/20 05:15: White Blood Count 9.9, Red Blood Count 4.53, Hemoglobin 13.5, Hematocrit 37.8, Mean Corpuscular Volume 84, Mean Corpuscular Hemoglobin 29.9, Mean Corpuscular Hemoglobin Concent 35.8, Red Cell Distribution Width 13.5, Platelet Count 271, Mean Platelet Volume 6.2L, Neutrophils (%) (Auto) 66.0, Lymphocytes (%) (Auto) 27.7, Monocytes (%) (Auto) 5.4, Eosinophils (%) (Auto) 0.2, Basophils (%) (Auto) 0.6, Sodium Level 136, Potassium Level 3.2L, Chloride Level 101, Carbon Dioxide Level 24, Anion Gap 11, Blood Urea Nitrogen 6L, Creatinine 0.8, Estimat Glomerular Filtration Rate > 60, Glucose Level 123H, Calcium Level 8.9, Magnesium Level 2.3 Height (Feet): 5 Height (Inches): 7.00 Weight (Pounds): 167 General Appearance: no apparent distress EENT: normal ENT inspection Neck: supple Cardiovascular: normal rate Respiratory/Chest: decreased breath sounds Abdomen: normal bowel sounds, non tender, soft Extremities: non-tender Assessment/Plan Assessment/Plan: Assessment/Plan: Assessment - N/V - cannabis hyperemesis syndrome Recommendations -on reg diet -improving labs - d/c cannabis use -dc planning per primary team Ferny Wood MD Oct 31, 2020 10:07
--- NOTE | 2020-10-31 10:15 | Discharge Instructions ---
Discharge Instructions Discharge Instructions Follow up with: primary care physician within 7 days Call MD/Return to Hospital if: symptoms worsen or fail to improve on antiemetics Diet: regular Resume Normal Activity?: Yes Activity: resume normal activities Special Instructions Follow up with your primary care physician as soon as possible for a recheck of your potassium level. You also should see your doctor regarding your blood pressure for monitoring and management. Ricky Harp M.D. Oct 31, 2020 10:15
--- NOTE | 2020-10-31 10:18 | Discharge Summary ---
Discharge Summary Hospital Course Date of Admission Oct 29, 2020 at 10:37 Date of Discharge Oct 31, 2020 Admitting Diagnosis Intractable vomiting Reason for Hospitalization: Cannabis Hyperemesis Syndrome ARELY Morgan is a 35 year old female who was admitted on Oct 29, 2020 at 10:37 for Intractable Vomiting. 35 yo F with multiple hospitalizations for cyclic vomiting syndrome likely due to cannabis use again presents with acute intractable vomiting since midnight. She was recently hospitalized for similar episodes about 2 weeks ago. She reports associated abdominal pain. 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 Denies hematemesis, diarrhea. Continues to use marijuana. Consultations GI Dr. Wood Hospital Course Admitted for intractable vomiting, initially not relieved by any antiemetics. GI consultation agreed with cannabinoid hyperemesis diagnosis. Patient was given IVF, scheduled and PRN antiemetics. She eventually tolerated clear liquid diet with improvement in nausea. A: # Intractable Nausea/vomiting likely 2/2 Cannabis use - improved # Cannabinoid Hyperemesis Syndrome # Chronic Marijuana Dependence # Abdominal pain likely 2/2 Vomiting - improving # Leukocytosis, likely reactive - improving # Hyperglycemia - likely reactive to stress P: - hemodynamically stable - IVF - Zofran changed to standing dose 4 mg q4 hours with compazine PRN for breakthrough nausea/vomiting - Ativan prn anxiety/nausea - liquid diet, advance as tolerated - Elevated WBC count likely reactive to vomiting - GI consult, Dr. Wood, recs appreciated - discussion with patient regarding cessation of marijuana Time spent on this discharge was 31 minutes which included 17 minutes of counseling about marijuana cessation, electrolyte replacement and follow up with PCP regarding monitoring blood pressure, and care coordination. I discussed with the nurse at bedside. Time of note may not reflect time patient was seen. Discharge Medications Continued Medications: Noreth A-Et Estra/Fe Fumarate (Lo Loestrin Fe 1-10 Tablet) 1 Each Tablet 1 EACH PO DAILY for CONTROL, TAB Ondansetron* (Zofran*) 4 Mg Tablet 4 MG ORAL Q6H PRN, #20 TAB Prochlorperazine Maleate (Compazine) 5 Mg Tablet 5 MG PO TID PRN for 5 Days, #15 TAB Discharge Condition Upon Discharge: improving Discharge Vital Signs Last Vital Signs Date Time Temp Pulse Resp B/P (MAP) Pulse Ox O2 Delivery O2 Flow Rate FiO2 10/31/20 09:25 102 171/119 10/31/20 08:50 18 10/31/20 08:50 97.5 10/31/20 07:28 Room Air 10/30/20 16:00 97 Exam on day of discharge General Appearance: WD/WN, alert, mild distress - nausea HEENT: normocephalic, atraumatic, anicteric, PERRL, EOMI Neck: non-tender, normal alignment, supple, normal inspection Respiratory/Chest: chest wall non-tender, lungs clear, normal breath sounds, no respiratory distress, no accessory muscle use Abdomen: soft, no organomegaly, mildly tender to palpation Extremities: normal range of motion, non-tender, normal inspection, no calf tenderness, no edema Skin Exam: normal pigmentation, warm/dry 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 Oct 31, 2020 10:18
[2020-10-31 10:25] VITALS: BP 167/114
[2020-10-31 11:58] VITALS: BP 146/96
== END 2020-10-31 12:50 | disposition home or self-care (01) | DRG 392 ==
LOC: EMR 06:30 → 3E 10:37 → EDBEDREQ 12:49 → 3E 13:20
DX: R11.2 Nausea with vomiting, unspecified (principal); F12.220 Cannabis dependence with intoxication, uncomplicated; R73.9 Hyperglycemia, unspecified; Z88.2 Allergy status to sulfonamides; F12.20 Cannabis dependence, uncomplicated; R10.9 Unspecified abdominal pain; R11.15 Cyclical vomiting syndrome unrelated to migraine; E87.6 Hypokalemia; F17.210 Nicotine dependence, cigarettes, uncomplicated
CPT/HCPCS: 36415; 71045; 80048; 80053; 81003; 81025; 83690; 83735; 85007; 85025; 85610; 85730; 96361; 96365; 96375; 96376; 99285; J2405; J2765; J7030; J8499

== ENCOUNTER 2020-12-29 07:48 | Emergency (ER) | payer OTHER ==
[~2020-12-29] VITALS: Ht 172.7 cm; Wt 68.0 kg
[2020-12-29] MEDS ORDERED: Capsaicin 0.075% Cream TOPIC ONE (08:00)
[2020-12-29] MEDS ORDERED: DiphenhydrAMINE 50mg/ml Inj IVP ONE ×2 (08:00→10:00)
--- NOTE | 2020-12-29 08:06 | Emergency Room Report ---
History of Present Illness General Chief Complaint: Vomiting Source: Patient Present Illness HPI Disclaimer: Please note that this report is being documented using [employer] technology. This can lead to erroneous entry secondary to incorrect interpretation by the dictating instrument. HPI: 35-year-old female history of cyclic vomiting syndrome secondary to cannabis use presents for evaluation of vomiting. Symptoms began this morning. Reports over 10 episodes of nonbloody emesis and abdominal cramping beginning when awakening. She smoked marijuana last night. Was prescribed Zofran and Ativan for her anxiety and cyclic vomiting syndrome but did not take her me dications this morning. Denies diarrhea, fever, chills, cough, congestion, URI symptoms, dysuria, hematuria. She takes OCPs and LMP was 3 weeks ago. Presentation consistent with her prior cyclic vomiting syndrome episodes according to patient. PMH: Cyclic vomiting, anxiety PSH: Denied Allergies: Sulfa medications Social Hx: Denies tobacco, denies alcohol, reports marijuana Allergies: Coded Allergies: SULFA (SULFONAMIDE ANTIBIOTICS) (Verified Allergy, Unknown, 02/23/11) COVID-19 Screening Contact w/high risk pt: No Recent Travel to affected area: No Experienced COVID-19 symptoms?: No COVID-19 Testing performed SECURITY COORDINATOR: No Patient History Now: No Nursing Documentation-PMH Past Medical History: No History, Except For Hx Cardiac Problems: No Hx Hypertension: No Hx Pacemaker: No Hx Asthma: Yes Hx COPD: No Hx Diabetes: No Hx Cancer: No Hx Gastrointestinal Problems: Yes Hx Dialysis: No Hx Neurological Problems: No Hx Cerebrovascular Accident: No Hx Transient Ischemic Attacks: No Hx Dementia: No Hx Alzheimer's Disease: No Hx Parkinson's Disease: No Hx Meningitis: No Hx Encephalitis: No Hx Seizures: No Hx Epilepsy: No Hx Multiple Sclerosis: No Hx Cerebral Palsy: No Hx Amyotrophic Lat Sclerosis: No Hx Guillian-[place] Syndrome: No Hx Paralysis: No Hx Peripheral Neuropathy: No Hx Spinal Cord Injury: No Hx Head Trauma: No Hx Traumatic Brain Injury: No Hx Memory Loss: No Hx Concentration Difficulty: No Hx Speech Problem: No Hx Tremors: No Hx Vertigo: No Hx Dizziness: No Hx Syncope: No Hx Headaches: No Hx Aphasia: No Hx Dysphasia: No Hx Numbness: No Hx Weakness: No Hx Fatigue: No Hx Neurologic Surgery: No Hx Brain Shunt: No Review of Systems All Other Systems: negative except mentioned in HPI Physical Exam Vital Signs Date Time Temp Pulse Resp B/P (MAP) Pulse Ox O2 Delivery O2 Flow Rate FiO2 12/29/20 07:55 97.9 106 18 150/98 (115) 95 Room Air General: Awake and alert, appears uncomfortable HEENT: NC/AT. EOMI. Cardiovascular: RRR. S1 and S2 normal. No murmur appreciated Resp: Normal work of breathing. No cough, wheezing or crackles appreciated Abdomen: Abdomen is soft, nondistended. Patient uncooperative with abdominal exam. Skin: Intact. No abrasions, laceration or rash over the exposed skin MSK: Normal tone and bulk. Moving all extremities. No obvious deformity. Neuro: Awake and alert. Mentating appropriately. Medical Decision Making Diagnostic Impression: Primary Impression: Nausea and vomiting in adult patient Additional Impression: Cannabis abuse ER Course 35-year-old female history of cyclic vomiting syndrome presents for evaluation of nausea and vomiting beginning this morning. Differential includes known to gastritis, gastroenteritis, pancreatitis, cholecystitis, UTI, pyelonephritis, appendicitis, cyclic vomiting, diverticulitis among others. She smoked marijuana last night and has been seen in the ED multiple times for similar presentation. Patient given IV fluids, antiemetics, antacids, capsaicin cream. Labs returned within normal limits. Some bacteria in urine though no inflammatory markers and there are multiple epithelial cells as well. May represent a contaminated sample and the patient has no clinical symptoms of urinary tract infection at this time. Will wait for culture results. Will prescribe patient Zofran. 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 Instructed to return new or worsening symptoms. She understands and agrees with this treatment plan. Laboratory Tests Test 12/29/20 07:35 White Blood Count 10.2 K/UL (4.8-10.8) Red Blood Count 4.93 M/UL (4.20-5.40) Hemoglobin 14.0 G/DL (12.0-16.0) Hematocrit 43.2 % (37.0-47.0) Mean Corpuscular Volume 87 FL (80-99) Mean Corpuscular Hemoglobin 28.4 PG (27.0-31.0) Mean Corpuscular Hemoglobin Concent 32.5 G/DL (32.0-36.0) Red Cell Distribution Width 12.1 % (11.6-14.8) Platelet Count 271 K/UL (150-450) Mean Platelet Volume 7.1 FL (6.5-10.1) Neutrophils (%) (Auto) 77.1 % (45.0-75.0) H Lymphocytes (%) (Auto) 17.8 % (20.0-45.0) L Monocytes (%) (Auto) 4.1 % (1.0-10.0) Eosinophils (%) (Auto) 0.1 % (0.0-3.0) Basophils (%) (Auto) 0.9 % (0.0-2.0) Urine Color Pale yellow Urine Appearance Slightly cloudy Urine pH 6.5 (4.5-8.0) Urine Specific [place] 1.015 (1.005-1.035) Urine Protein 2+ (NEGATIVE) H Urine Glucose (UA) Negative (NEGATIVE) Urine Ketones 3+ (NEGATIVE) H Urine Blood 2+ (NEGATIVE) H Urine Nitrite Negative (NEGATIVE) Urine Bilirubin Negative (NEGATIVE) Urine Urobilinogen Normal MG/DL (0.0-1.0) Urine Leukocyte Esterase Negative (NEGATIVE) Urine RBC 10-15 /HPF (0 - 2) H Urine WBC 0-2 /HPF (0 - 2) Urine Squamous Epithelial Cells Moderate /LPF (NONE/OCC) H Urine Bacteria Moderate /HPF (NONE) H Urine HCG, Qualitative Negative (NEGATIVE) Sodium Level 140 MMOL/L (136-145) Potassium Level 3.8 MMOL/L (3.5-5.1) Chloride Level 106 MMOL/L (98-107) Carbon Dioxide Level 19 MMOL/L (21-32) L Anion Gap 15 mmol/L (5-15) Blood Urea Nitrogen 8 mg/dL (7-18) Creatinine 0.9 MG/DL (0.55-1.30) Estimated Glomerular Filtration Rate > 60 mL/min (>60) Glucose Level 151 MG/DL (74-106) H Calcium Level 9.5 MG/DL (8.5-10.1) Total Bilirubin 0.2 MG/DL (0.2-1.0) Aspartate Amino Transferase (AST) 16 U/L (15-37) Alanine Aminotransferase (ALT) 14 U/L (12-78) Alkaline Phosphatase 54 U/L (46-116) Total Protein 7.6 G/DL (6.4-8.2) Albumin 4.1 G/DL (3.4-5.0) Globulin 3.5 g/dL Albumin/Globulin Ratio 1.2 (1.0-2.7) Lipase 192 U/L (73-393) Last Vital Signs Date Time Temp Pulse Resp B/P (MAP) Pulse Ox O2 Delivery O2 Flow Rate FiO2 12/29/20 07:55 97.9 106 18 150/98 (115) 95 Room Air Disposition: HOME, SELF-CARE Condition: Stable Scripts Ondansetron* (ZOFRAN*) 4 Mg Tablet 4 MG ORAL Q6H PRN for Nausea & Vomiting for 5 Days, #20 TAB Prov: Rolando Stokes MD 12/29/20 Rolando Stokes MD Dec 29, 2020 08:06
[2020-12-29 08:30] VITALS: BP 180/100
[2020-12-29 08:38] LABS: APPEARANCE,URINE SLIGHTLY CLOUDY; BILIRUBIN, URINE NEGATIVE (NEGATIVE); COLOR,URINE PALE YELLOW; GLUCOSE, URINE (UA) NEGATIVE (NEGATIVE); KETONES,URINE 3+ (NEGATIVE); LEUKOCYTE ESTERASE ,URINE NEGATIVE (NEGATIVE); NITRITE,URINE NEGATIVE (NEGATIVE); PH,URINE 6.5 (4.5-8.0); PROTEIN,URINE 2+ (NEGATIVE); UROBILINOGEN,URINE NORMAL MG/DL (0.0-1.0)
--- NOTE | 2020-12-29 08:40 | NUR ---
ED Nurse Note: ERMD states ok to place IV in foot.
--- NOTE | 2020-12-29 08:45 | NUR ---
ED Nurse Note: Pt ambulated in with c/o n/v and abd pain. Denies diarrhea, bodyaches, chills and fever. Pt has hx of cyclic vomiting, states she uses marijuana. Pt extremely hard iv stick. Pt placed on monitor, iv established, labs drawn and sent. IVF started and medications given.
[2020-12-29 08:47] LABS: ANION GAP 15 mmol/L (5-15); BLOOD UREA NITROGEN 8 mg/dL (7-18); CALCIUM 9.5 MG/DL (8.5-10.1); CARBON DIOXIDE 19 MMOL/L (21-32); CHLORIDE 106 MMOL/L (98-107); CREATININE 0.9 MG/DL (0.55-1.30); POTASSIUM 3.8 MMOL/L (3.5-5.1); SODIUM 140 MMOL/L (136-145)
[2020-12-29 08:51] LABS: ALANINE AMINOTRANSFERASE 14 U/L (12-78); ALBUMIN 4.1 G/DL (3.4-5.0); ALBUMIN/GLOBULIN RATIO 1.2 (1.0-2.7); ALKALINE PHOSPHATASE 54 U/L (46-116); ASPARTATE AMINO TRANSFERASE 16 U/L (15-37); BILIRUBIN,TOTAL 0.2 MG/DL (0.2-1.0)
--- NOTE | 2020-12-29 08:55 | NUR ---
pt resting with eyes closed in no noted distress
[2020-12-29 09:11] LABS: BASOPHILS % (AUTO) 0.9 % (0.0-2.0); EOSINOPHILS % (AUTO) 0.1 % (0.0-3.0); HEMATOCRIT 43.2 % (37.0-47.0); LYMPHOCYTES % (AUTO) 17.8 % (20.0-45.0); MEAN CORPUSCULAR VOLUME 87 FL (80-99); MONOCYTES % (AUTO) 4.1 % (1.0-10.0); NEUTROPHILS % (AUTO) 77.1 % (45.0-75.0); PLATELET COUNT 271 K/UL (150-450); RED BLOOD COUNT 4.93 M/UL (4.20-5.40); RED CELL DISTRIBUTION WIDTH 12.1 % (11.6-14.8); WHITE BLOOD COUNT 10.2 K/UL (4.8-10.8)
[2020-12-29] MEDS ORDERED: Metoclopramide 10mg/2ml Inj IVP ONE (09:30)
[2020-12-29] MEDS ORDERED: ZOFRAN4 M3 ORAL (09:36)
[2020-12-29] MEDS ORDERED: DiphenhydrAMINE 50mg/ml Inj ONE (09:51)
--- NOTE | 2020-12-29 09:58 | NUR ---
ED Nurse Note: pt c/o her jaws were locking. pt diaphoretic and states this has never happened before. Pt was given benadryl. O2 sats 99% on RA. Reported to the ER MD.
--- NOTE | 2020-12-29 10:04 | NUR ---
ED Nurse Note: Pt stated that her jaw pain has stopped. Pt being dc'd home.
--- NOTE | 2020-12-29 10:08 | NUR ---
ER DISCHARGE NOTE: Patient is cleared to be discharged per ERMD, pt is aox4, on room air, hypertensive, MD informed. Denies jaw pain. pt was given dc and prescription instructions, pt was able to verbalize understanding, pt id band and iv site removed without complications. pt is able to ambulate with steady gait in no noted distress. Encouraged pt to f/u with her GI MD and to stop using marijuana. pt took all belongings.
[2020-12-29 10:10] VITALS: BP 182/100
[2020-12-29 10:15] VITALS: BP 182/100
[2020-12-29] MEDS ORDERED: CEPHALEXIN500 MG ORAL (23:54)
== END 2020-12-29 10:17 | disposition home or self-care (01) ==
LOC: EMR 07:55
DX: R11.2 Nausea with vomiting, unspecified (principal); F12.10 Cannabis abuse, uncomplicated; J45.909 Unspecified asthma, uncomplicated; Z88.2 Allergy status to sulfonamides
CPT/HCPCS: 36415; 80053; 81003; 81025; 83690; 85025; 87086; 96361; 96374; 96375; 99284; J1200; J2405; J2765; J7030; S0028

== ENCOUNTER 2020-12-29 20:52 | Emergency (ER) | payer OTHER ==
[~2020-12-29] VITALS: Ht 172.7 cm; Wt 74.8 kg
--- NOTE | 2020-12-29 21:10 | NUR ---
ed nurses note: Patient walked into the ED with c/o cyclical vomiting syndrome. Pt was seen earlier today with the same problem.
[2020-12-29] MEDS ORDERED: Haloperidol 5mg/ml Inj IM ONE (21:15)
[2020-12-29] MEDS ORDERED: LORazepam Inj 2mg/ml 1ml IV ONE (21:15)
[2020-12-29] MEDS ORDERED: DiphenhydrAMINE 50mg/ml Inj IVP ONE (21:30)
[2020-12-29] MEDS ORDERED: Capsaicin 0.075% Cream TOPIC SCH (21:45)
--- NOTE | 2020-12-29 21:58 | Emergency Room Report ---
History of Present Illness General Chief Complaint: Vomiting Present Illness HPI 35-year-old female well-known to this emergency department for many visits for cyclic vomiting syndrome and continued marijuana use here with vomiting and abdominal pain. Patient was here this morning and had unremarkable lab work and received multiple antiemetics with eventual resolution of her pain and vomiting. She said that she went home and the pain and nausea returned. Has vomited more times nonbilious nonbloody. Says that she used marijuana last night but has not used any today. Denies headaches, vision changes, fevers, chills, chest pain, palpitation, shortness of breath, back pain, diarrhea, dysuria. Allergies: Coded Allergies: SULFA (SULFONAMIDE ANTIBIOTICS) (Verified Allergy, Unknown, 02/23/11) COVID-19 Screening Contact w/high risk pt: No Recent Travel to affected area: No Experienced COVID-19 symptoms?: No COVID-19 Testing performed PUNCH MACHINE HAND: No Patient History Now: No Nursing Documentation-PMH Hx Cardiac Problems: No Hx Hypertension: No Hx Pacemaker: No Hx Asthma: Yes Hx COPD: No Hx Diabetes: No Hx Cancer: No Hx Gastrointestinal Problems: Yes - cyclical vomiting syndrome Hx Dialysis: No Hx Neurological Problems: No Hx Cerebrovascular Accident: No Hx Transient Ischemic Attacks: No Hx Dementia: No Hx Alzheimer's Disease: No Hx Parkinson's Disease: No Hx Meningitis: No Hx Encephalitis: No Hx Seizures: No Hx Epilepsy: No Hx Multiple Sclerosis: No Hx Cerebral Palsy: No Hx Amyotrophic Lat Sclerosis: No Hx Guillian-Dermott Syndrome: No Hx Paralysis: No Hx Peripheral Neuropathy: No Hx Spinal Cord Injury: No Hx Head Trauma: No Hx Traumatic Brain Injury: No Hx Memory Loss: No Hx Concentration Difficulty: No Hx Speech Problem: No Hx Tremors: No Hx Vertigo: No Hx Dizziness: No Hx Syncope: No Hx Headaches: No Hx Aphasia: No Hx Dysphasia: No Hx Numbness: No Hx Weakness: No Hx Fatigue: No Hx Neurologic Surgery: No Hx Brain Shunt: No Review of Systems All Other Systems: negative except mentioned in HPI Physical Exam Vital Signs Date Time Temp Pulse Resp B/P (MAP) Pulse Ox O2 Delivery O2 Flow Rate FiO2 12/29/20 21:07 98.4 95 20 141/84 (103) 98 Room Air Sp02 EP Interpretation: reviewed, normal General Appearance: no apparent distress, alert, GCS 15, non-toxic, mild distress, other - Writhing in pain clutching abdomen Head: normocephalic, atraumatic Eyes: bilateral eye normal inspection, bilateral eye PERRL ENT: hearing grossly normal, normal pharynx, no angioedema, normal voice Neck: full range of motion, supple/symm/no masses Respiratory: chest non-tender, lungs clear, normal breath sounds, speaking full sentences Cardiovascular #1: regular rate, rhythm, no edema Cardiovascular #2: 2+ carotid (R), 2+ carotid (L), 2+ radial (R), 2+ radial (L), 2+ dorsalis pedis (R), 2+ dorsalis pedis (L) Gastrointestinal: normal bowel sounds, non tender, soft, non-distended, no guarding, no rebound, other - Complaining of subjective diffuse abdominal pain. Subjective diffuse abdominal tenderness on palpation. No distention or rebound or guarding Rectal: deferred Genitourinary: no CVA tenderness Musculoskeletal: back normal, normal range of motion, calf tenderness, gait/station normal, non-tender Neurologic: alert, motor strength/tone normal, oriented x3, sensory intact, responsive, speech normal Psychiatric: judgement/insight normal, memory normal, mood/affect normal, no suicidal/homicidal ideation Lymphatic: no adenopathy Medical Decision Making Diagnostic Impression: Primary Impression: Cyclic vomiting syndrome Additional Impression: Cannabinoid hyperemesis syndrome ER Course Laboratory Tests Test 12/29/20 22:20 White Blood Count 12.9 K/UL (4.8-10.8) H Red Blood Count 4.66 M/UL (4.20-5.40) Hemoglobin 14.2 G/DL (12.0-16.0) Hematocrit 40.7 % (37.0-47.0) Mean Corpuscular Volume 87 FL (80-99) Mean Corpuscular Hemoglobin 30.6 PG (27.0-31.0) Mean Corpuscular Hemoglobin Concent 35.0 G/DL (32.0-36.0) Red Cell Distribution Width 13.8 % (11.6-14.8) Platelet Count 275 K/UL (150-450) Mean Platelet Volume 7.3 FL (6.5-10.1) Neutrophils (%) (Auto) 88.3 % (45.0-75.0) H Lymphocytes (%) (Auto) 8.9 % (20.0-45.0) L Monocytes (%) (Auto) 2.3 % (1.0-10.0) Eosinophils (%) (Auto) 0.0 % (0.0-3.0) Basophils (%) (Auto) 0.5 % (0.0-2.0) Sodium Level 141 MMOL/L (136-145) Potassium Level 3.3 MMOL/L (3.5-5.1) L Chloride Level 105 MMOL/L (98-107) Carbon Dioxide Level 19 MMOL/L (21-32) L Blood Urea Nitrogen 9 mg/dL (7-18) Creatinine 0.9 MG/DL (0.55-1.30) Estimated Glomerular Filtration Rate > 60 mL/min (>60) Glucose Level 159 MG/DL (74-106) H Calcium Level 9.8 MG/DL (8.5-10.1) Total Bilirubin 0.2 MG/DL (0.2-1.0) Aspartate Amino Transferase (AST) 19 U/L (15-37) Alanine Aminotransferase (ALT) 17 U/L (12-78) Alkaline Phosphatase 59 U/L (46-116) Total Protein 8.3 G/DL (6.4-8.2) H Albumin 4.5 G/DL (3.4-5.0) Globulin 3.8 g/dL Albumin/Globulin Ratio 1.2 (1.0-2.7) Lipase 144 U/L (73-393) EKG: NSR, no ischemia, intervals WNL. No ectopy Rhythm strip: patient monitored for arrhythmias - no malignant dysrhythmias, runs of PVCs, nor pauses noted 35-year-old female here with vomiting. Patient was here earlier today for same complaints. She admits to smoking a heavy amount of marijuana recently. She has been seen here in this emergency department many times in the past for cannabinoid hyperemesis syndrome. She was highly anxious in appearance on arrival and requesting pain and anxiety medicine. She was given Haldol, Ativan, Benadryl, capsaicin cream with good resolution of her symptoms. She was resting soundly here in the emergency department in no acute distress. Abdomen exam benign. CBC showed slight elevation in her white blood cell count compared to her previous visit earlier today. Potassium also decreased to 3.3. This was repleted in the emergency department. EKG did not reveal any evidence of hyperkalemia. QTc within normal limits. Patient's urinalysis earlier today did show some evidence of infection. Now with a elevated white blood cell count the patient was given a prescription for Keflex to treat urinary tract infection. She was told to complete the entire regimen of this medication. She was also told to refrain from using drugs or alcohol. She expressed understanding and was discharged. Last Vital Signs Date Time Temp Pulse Resp B/P (MAP) Pulse Ox O2 Delivery O2 Flow Rate FiO2 12/29/20 21:07 98.4 95 20 141/84 (103) 98 Room Air Scripts Cephalexin* (KEFLEX*) 500 Mg Capsule 500 MG ORAL EVERY 12 HOURS, #14 CAP 0 Refills Prov: Aidan Dawkins M.D. 12/29/20 Aidan Dawkins M.D. Dec 29, 2020 21:58
--- NOTE | 2020-12-29 22:00 | NUR ---
ED Nurse Note: CBC, BMP, EKG COLLECTED
[2020-12-29 22:40] LABS: HEMATOCRIT 40.7 % (37.0-47.0); HEMOGLOBIN 14.2 G/DL (12.0-16.0); MEAN CORPUSCULAR VOLUME 87 FL (80-99); PLATELET COUNT 275 K/UL (150-450); RED BLOOD COUNT 4.66 M/UL (4.20-5.40); RED CELL DISTRIBUTION WIDTH 13.8 % (11.6-14.8); WHITE BLOOD COUNT 12.9 K/UL (4.8-10.8)
[2020-12-29 22:41] LABS: BASOPHILS % (AUTO) 0.5 % (0.0-2.0); LYMPHOCYTES % (AUTO) 8.9 % (20.0-45.0); MONOCYTES % (AUTO) 2.3 % (1.0-10.0); NEUTROPHILS % (AUTO) 88.3 % (45.0-75.0)
[2020-12-29 22:53] LABS: ALANINE AMINOTRANSFERASE 17 U/L (12-78); ALBUMIN 4.5 G/DL (3.4-5.0); ALBUMIN/GLOBULIN RATIO 1.2 (1.0-2.7); ALKALINE PHOSPHATASE 59 U/L (46-116); ASPARTATE AMINO TRANSFERASE 19 U/L (15-37); BILIRUBIN,TOTAL 0.2 MG/DL (0.2-1.0); BLOOD UREA NITROGEN 9 mg/dL (7-18); CALCIUM 9.8 MG/DL (8.5-10.1); CHLORIDE 105 MMOL/L (98-107); CREATININE 0.9 MG/DL (0.55-1.30); POTASSIUM 3.3 MMOL/L (3.5-5.1); SODIUM 141 MMOL/L (136-145)
[2020-12-29 22:58] LABS: CARBON DIOXIDE 19 MMOL/L (21-32)
[2020-12-29] MEDS ORDERED: CEPHALEXIN500 MG ORAL (23:54)
[2020-12-30 00:20] VITALS: BP 141/84
[2020-12-30 00:34] VITALS: BP 132/72
== END 2020-12-30 00:36 | disposition home or self-care (01) ==
LOC: EMR 21:20
DX: F12.188 Cannabis abuse with other cannabis-induced disorder (principal); R11.15 Cyclical vomiting syndrome unrelated to migraine; N39.0 Urinary tract infection, site not specified; J45.909 Unspecified asthma, uncomplicated; Z88.2 Allergy status to sulfonamides
CPT/HCPCS: 36415; 80053; 83690; 85025; 93005; 96361; 96372; 96374; 96375; 99284; J1200; J1630; J7030; J8499